=== PATIENT | female | born 1955 | race Caucasian/White ===

== ENCOUNTER 2019-05-02 11:36 | Outpatient (CLI) | payer MEDICARE, MEDICAID, SELFPAY ==
--- NOTE | 2019-05-02 12:33 | ECG_ITS ---
Measurements Intervals [place] Rate: 83 P: 76 [place]: 151 QRS: 65 QRSD: 66 T: 53 QT: 351 QTc: 414 Interpretive Statements SINUS RHYTHM BASELINE ARTIFACT- I, II, III, AVR, AVL, AVF, V1-V6 NORMAL ECG Electronically Signed On 05-02-2019 15:45:56 [employer]IPPER by Damion Vega D.O.
[2019-05-02 13:00] LABS: Basophils Absolute Auto 0.1 K/mm3 (0.0-0.1); Eosinophils Absolute Auto 0.1 K/mm3 (0-0.3); Eosinophils Percent Auto 1.9 % (0-4.4); Hematocrit 33.3 % (37.0-47.0); Hemoglobin 10.7 g/dL (12.0-15.0); Immature Granulocyte Absolute 0.03 K/mm3 (0.00-0.031); Immature Granulocyte Percent A 0.5 % (0-0.5); Lymphocytes Absolute Auto 1.09 K/mm3 (0.9-3.2); Lymphocytes Percent Auto 18.5 % (18.3-44.2); Mean Corpuscular HGB Conc 32.1 g/dl (32-36); Mean Corpuscular Hemoglobin 31.5 pg (26-34); Mean Corpuscular Volume 97.9 fl (80-100); Mean Platelet Volume 9.5 fl (7.4-10.4); Monocytes Absolute Auto 0.7 K/mm3 (0.1-0.6); Monocytes Percent Auto 12.1 % (2.6-8.5); Neutrophils Absolute Auto 3.9 K/mm3 (1.3-6.7); Platelet Count Result 367 k/mm3 (150-375); Red Cell Distribution Width 14.7 % (11.5-14.5); White Blood Count 5.9 K/mm3 (4.5-10.0)
[2019-05-02 13:10] LABS: Add Urine Microscopic? YES; Appearance Urine Clear (Clear); Bilirubin Urine Negative (Negative); Blood Urine Negative (Negative); Color Urine Amber (Yellow); Glucose Urine UA Negative (Negative); Ketones Urine Negative (Negative); Leukocyte Esterase Ur Negative LEU/UL (Negative); Mucus Urine Rare /lpf; Nitrate Urine Negative (Negative); Protein Urine Negative (Negative); Specific Grav Ur 1.013 (1.001-1.035); Squamous Epithelial Cell Urine Rare /hpf (Few); Urobilinogen Urine Negative mg/dL (<2.0); WBC Urine 0-3 /hpf
[2019-05-02 13:13] LABS: Urine Cotinine NEGATIVE
[2019-05-02 13:15] LABS: Albumin Level 4.1 g/dL (3.5-5.1); Blood Urea Nitrogen 12 mg/dL (7-17); Calcium 9.1 mg/dL (8.4-10.2); Carbon Dioxide 32 mmol/L (22-30); Chloride 98 mmol/L (98-107); Estimated Glomerular Filt Rate > 60; Glucose 88 mg/dL (65-105); Sodium 140 mmol/L (137-145)
[2019-05-02 13:44] LABS: INR 0.9; Prothrombin Time 11.6 Seconds (11.1-14.7)
[2019-05-02 13:46] LABS: Partial Thromboplastin Time 27.8 SECONDS (22.3-36.8)
== END 2019-05-02 11:37 | disposition home or self-care (01) ==
LOC: ANHSURGERY 11:40
PROVIDERS: PCP Internal Medicine; Visit Provider Orthopaedic Surgery
DX: M16.9 Osteoarthritis of hip, unspecified (principal)
CPT/HCPCS: 36415; 80048; 80307; 81001; 82040; 83036; 85025; 85610; 85730; 86850; 86900; 86901; 87081; 93005

== ENCOUNTER 2019-05-09 11:32 | Inpatient (IN) | payer MEDICARE, MEDICAID, SELFPAY ==
[2019-05-02 11:46] VITALS: BP 142/90; PULSE 102; RESP 20; TEMP 37.4; O2SAT 99; BMI 21.7
[2019-05-09] VITALS (15 sets, daily range): BP systolic 99–150; BP diastolic 46–90; PULSE 64–107; RESP 12–20; TEMP 36.5–37.3; O2SAT 96–100
--- NOTE | ~2019-05-09 | XR_ITS ---
EXAMINATION: XR hip RT 1V EXAM DATE: 05/09/2019 10:34 INDICATION: Right hip replacement. TECHNIQUE: Portable frontal projections right hip obtained immediately following arthroplasty. Proc edure performed by Bridger Noonan MD. FINDINGS: Patient is status post right hip arthroplasty. Mild protrusio of the acetabular component. There is small amount of subcutaneous gas, some soft tissue swelling. Correlate with procedure no te. IMPRESSION: Status post right hip arthroplasty. Reviewed, dictated and finalized at location B. N CONTRACT REPRESENTATIVE
[2019-05-09] MEDS: LACTATED RINGERS 1,000 ML 30 ML IV CONT ×2 (06:45→10:13)
[2019-05-09] MEDS: IBUPROFEN IV 800 MG/200 ML 800 MG/200 ML BAG 400 MG IVPB (07:00)
--- NOTE | 2019-05-09 07:09 | WPDANESEPPF ---
Anes - Initial Pre Proc Eval Procedure: Operation Date: 05/09/19 07:30 Proposed Procedures p Right Total Hip Arthroplasty - Bridger Noonan MD Date/Time: 05/09/19 07:09 Surgeon: Bridger Noonan MD Pre Op Diagnosis: Right Hip OA Patient Data Age: 63 Gender: F Height: 1.52 m Weight: 50.3 kg Last Vital Signs Temp 37.4 C 05/02/19 11:46 Pulse 102 H 05/02/19 11:46 Resp 20 05/02/19 11:46 BP 142/90 H 05/02/19 11:46 Pulse Ox 99 05/02/19 11:46 Allergies Allergy/AdvReac Type Severity Reaction Status Date / Time adalimumab Allergy Mild Itching Verified 05/02/19 11:51 codeine AdvReac Unknown Itching Verified 05/02/19 11:51 Home Medications Medication Instructions Recorded Confirmed Type escitalopram oxalate 20 mg tablet 20 mg PO DAILY #90 tablet 01/29/19 05/02/19 Rx ascorbic acid (vitamin C) 1,000 mg 1 gm PO DAILY 04/26/19 05/02/19 History tablet atorvastatin 10 mg tablet 10 mg PO DAILY 04/26/19 05/02/19 History calcium carbonate 500 mg calcium 500 mg PO DAILY 04/26/19 05/02/19 History (1,250 mg) capsule carbidopa 25 mg-levodopa 100 mg 1 tablet PO DAILY tablet 04/26/19 05/02/19 History tablet celecoxib 200 mg capsule 200 mg PO BID 04/26/19 05/02/19 History cholecalciferol (vitamin D3) 25 1,000 unit PO DAILY 04/26/19 05/02/19 History mcg (1,000 unit) capsule esomeprazole magnesium 40 mg 40 mg PO BID cap 04/26/19 05/02/19 History capsule,delayed release ferrous sulfate 325 mg (65 mg 325 mg PO DAILY 04/26/19 05/02/19 History iron) tablet folic acid 1 mg tablet 1 mg PO DAILY 04/26/19 05/02/19 History lactobacillus combination no.8 3 3,000 mmu cells PO DAILY 04/26/19 05/02/19 History billion cell capsule methotrexate sodium 2.5 mg tablet 2.5 mg PO .COMPLEX 04/26/19 05/02/19 History multivitamin 1 tablet PO DAILY 04/26/19 05/02/19 History sucralfate 1 gram tablet 1 g PO QID 04/26/19 05/02/19 History tramadol 50 mg tablet See Rx Instructions PO Q6H PRN 04/26/19 05/02/19 History azathioprine 50 mg PO DAILY 05/02/19 05/02/19 History cyanocobalamin (vitamin B-12) 1,000 mcg PO DAILY 05/02/19 05/02/19 History tofacitinib [Xeljanz XR] 11 mg PO DAILY 05/02/19 05/02/19 History alprazolam 0.5 mg tablet 0.5 mg PO BID PRN #60 tablet 05/08/19 Rx Patient hx anesthesia problems: none Family hx anesthesia problems: none [facility] Past Medical History Medical History (Updated 05/09/19 @ 07:13 by Kam Cloud MD) Degenerative joint disease (DJD) of hip Gastroesophageal reflux disease Hx of Crohn's disease Mixed hyperlipidemia Osteoporosis Psoriatic arthritis Rheumatoid arthritis RLS (restless legs syndrome) Social History Social History Smoking status: Never smoker Alcohol intake: never Anes - Eval Final PreProcedure Day of Procedure 05/09/19 07:09 Patient weight: normal Heart: regular rate and rhythm Lungs: clear to auscultation and normal air movement Airway: Mallampati scale class II Neurological: alert and oriented Last oral intake: >/= 8 hours ASA classification: III Emergent: no Anesthetic plan: proceed Anesthesia type and monitoring: general LMA and ETT Informed Consent: The patient's anesthetic plan and its attendant risks and benefits were discussed with the patient/family/POA. Questions were solicited and answers provided to the satisfaction of the patient/family/POA.
--- NOTE | 2019-05-09 07:35 | WPDHPUPDATE1 ---
History and Physical Update Update Date/Time: 05/09/19 07:35 History and Physical has been reviewed, including an updated exam of the patient. There are NO changes in the patient's condition. Risks, benefits, and alternatives have been discussed and questions answered. Patient agrees to proceed with procedure.
[2019-05-09] MEDS: ceFAZolin 2 GM/D5W 50 ML 2 GM/50 ML BAG IVPB ×3 (07:44→23:33)
--- NOTE | 2019-05-09 09:59 | PM.OP ---
Procedure Note - Brief Procedure Note - Brief Date of procedure: 05/09/19 Pre-op diagnosis: Right Hip OA Post-op diagnosis: same Procedure performed: R ERNA Anesthesia: GETA Surgeon: Bridger Noonan MD Estimated blood loss (mL): 400 Complications: No immediate complications Condition: stable Disposition: PACU
--- NOTE | 2019-05-09 11:11 | SUR.PHASEI ---
1111 - family updated on pt's status and sent to room
[2019-05-09] MEDS: SUCRALFATE 1 GM TABLET PO ×3 (12:15→21:33)
--- NOTE | 2019-05-09 12:41 | OP_ITS ---
DATE OF PROCEDURE: 05/09/2019 PREOPERATIVE DIAGNOSIS: Right hip degenerative joint disease. POSTOPERATIVE DIAGNOSIS: Right hip degenerative joint disease. PROCEDURE: Right total hip arthroplasty. ANESTHESIA: General. COMPLICATIONS: None. INDICATIONS: This is a 63-year-old female who has a history of end-stage DJD to the right hip. She was indicated for right total hip arthroplasty. DESCRIPTION OF PROCEDURE: The patient was taken to the operating room in stable condition and placed in supine position. General anesthesia was induced and then she was placed in lateral decubitus and the right lower extremity was prepped and draped sterilely from the toes to the iliac crest region. Incision was made over the lateral aspect of the hip down to the subcutaneous tissues and the fascia then was incised. The short external rotators, the piriformis tendon and the sciatic nerve were identified. The piriformis tendon then was incised along with the capsule of the hip joint and the short external rotators of the hip. This continued down until the lesser trochanter was visualized. The hip was dislocated and an osteotomy was performed approximately 1 cm proximal to the lesser trochanter. There was severe arthrosis to all compartments of the hip. The acetabulum was exposed and then the acetabulum was reamed starting with a 42 reamer and ending with a 47 reamer and approximately 35 degrees of abduction and version was in alignment with the trans-acetabular ligament. A 47 trial acetabular component was placed and it bottomed out well and had good purchase. Next, a 48 Biomet Osteo-Ti acetabular component then was tapped into place in approximately 40 degrees of abduction and the version was in alignment with the trans-acetabular ligament and then 2 screws were placed, they both had excellent bites. A liner was placed with the high wall, and then tapped in and was secured. Next, the femur was prepared first with a canal finder and then with sequential broaching in 15 degrees of anteversion until a #6 broach was fit well within the femoral canal. A trial standard offset neck with a +6 eventually was used to make up for some length that she was lacking on the right lower extremity and it felt good. There was a good Shuck test. The hip came out to full extension. There was good stability with rotation in 90 degrees. The trial components were removed, and then a [place] standard offset neck was tapped down into place in 15 degrees of anteversion. The fit was excellent. The trial +6 head/neck was used with a 32 head and the hip was taken through range of motion, once again found to be very stable. The Shuck test was good and the hip came out to full extension. Once that was performed, then trial was removed and then a 32 mm +6 neck with a ceramic head was tapped into place and the hip was relocated taken through range of motion. The leg lengths were improved from preoperative, but they were not equal. The sciatic nerve was supple and the tip came out to full extension and rotation was stable and adduction as well as abduction. The wound was irrigated thoroughly with sterile Betadine and sterile water for 3 minutes. The piriformis and the capsule of the hip and the short external rotators were all repaired. Next, the piriformis and the capsule and the short external rotators were repaired with #1 Vicryl. The fascial layer was approximated with #2 Quill subcutaneous with 2-0 Vicryl and the skin with a 3-0 Quill, and then Dermabond was placed and a sterile dressing was applied. The patient was placed back in the supine position. She was extubated and sent to recovery. Armando Lloyd MT: Bean
--- NOTE | 2019-05-09 13:00 | WPDCN ---
Assessment and Plan Assessment and plan (1) Degenerative joint disease (DJD) of hip: Qualifiers: Osteoarthritis type: other secondary Laterality: right Qualified Code(s): M16.7 - Other unilateral secondary osteoarthritis of hip Code(s): M16.9 - Osteoarthritis of hip, unspecified Status: Acute Assessment and Plan: Postoperative day 0, right total hip arthroplasty. Wound care and pain control deferred to Dr. Noonan. DVT prophylaxis also deferred. (2) RLS (restless legs syndrome): Code(s): G25.81 - Restless legs syndrome Status: Acute Assessment and Plan: Resume Sinemet at nighttime. (3) Gastroesophageal reflux disease: Code(s): K21.9 - Gastro-esophageal reflux disease without esophagitis Status: Acute Assessment and Plan: Continue esomeprazole and sucralfate. (4) Immunosuppressed status: Code(s): D89.9 - Disorder involving the immune mechanism, unspecified Status: Acute Assessment and Plan: Patient is on tofacitinib, azathioprine, and methotrexate for her autoimmune diseases. I will defer the decision to resume these to Dr. Noonan. HPI Data of Consult Date/Time: 05/09/19 13:00 Requesting Physician: Bridger Noonan MD Primary Care Provider: Ricky Ballesteros MD Consult Narrative Narrative: Ina Garcia is a pleasant 63-year-old female with osteoarthritis, rheumatoid arthritis, Crohn's, iron deficiency anemia, and restless leg syndrome who presented today for elective right total hip arthroplasty. She has had quite a bit of pain in that right hip for some time, not amenable to conservative outpatient treatment and thus she elected for replacement today. Her surgery was performed under general anesthesia with no immediate complications documented an estimated blood loss of 400 mLs. She has minimal pain at the time my evaluation and has no complaints except of being tired. She denies fever, chills, sweats, chest pain, shortness of breath, nausea, and vomiting. She also denies paresthesias, skin color, and temperature changes distal to the surgical site. Review of Systems Review of Systems: Narrative: Twelve systems were reviewed with pertinent positives and negatives as per HPI. No fever, chills, or sweats. No recent cold or flu-like symptoms. She denies exertional chest pain shortness of breath. No history of venous thromboembolism. Except as documented, all other systems were reviewed and are negative. [facility] Past Medical History Medical History (Updated 05/09/19 @ 14:53 by Gisela Zendejas PA-C) Crohn's disease Gastroesophageal reflux disease Glaucoma Immunosuppressed status Iron deficiency anemia Mixed hyperlipidemia Osteoarthritis Osteoporosis Psoriatic arthritis Rheumatoid arthritis RLS (restless legs syndrome) Surgical History Surgical History (Updated 05/09/19 @ 14:50 by Gisela Zendejas PA-C) History of section History of temporal artery biopsy In October 2016. No pathologic abnormalities noted. Status post ankle fusion With subsequent hardware removal and redo. Status post bilateral total hip replacement Status post cholecystectomy Status post rotator cuff repair Bilateral. Status post total right knee replacement Family History Family History Mother Family history of osteoporosis Cerebrovascular accident Family history of Alzheimer's disease Family history of coronary artery disease Acute myocardial infarction Family history of malignant melanoma Family history of malignant neoplasm of ovary Father Family history of coronary artery disease Family history of heart disease in male family member before age 55 Family history of lung cancer, Onset Age: 48 Sibling Family history of lung cancer Family history of malignant melanoma Family history of malignant neoplasm of urinary b
[2019-05-09] MEDS: DOCUSATE SODIUM 100 MG CAPSULE PO (16:37)
[2019-05-09] MEDS: PANTOPRAZOLE 40 MG TABLET PO (16:37)
[2019-05-09] MEDS: FAMOTIDINE 20 MG TABLET PO (21:33)
[2019-05-10 02:58] VITALS: BP 131/75; PULSE 111; RESP 16; TEMP 37.2; O2SAT 99
[2019-05-10 06:00] VITALS: BP 133/68; PULSE 98; RESP 16; TEMP 37.2; O2SAT 98
[2019-05-10 06:19] LABS: Basophils Percent Auto 0.3 % (0.2-1.2); Hematocrit 25.3 % (37.0-47.0); Hemoglobin 8.2 g/dL (12.0-15.0); Immature Granulocyte Absolute 0.06 K/mm3 (0.00-0.031); Immature Granulocyte Percent A 0.5 % (0-0.5); Lymphocytes Absolute Auto 0.55 K/mm3 (0.9-3.2); Lymphocytes Percent Auto 4.7 % (18.3-44.2); Mean Corpuscular HGB Conc 32.4 g/dl (32-36); Mean Corpuscular Hemoglobin 31.1 pg (26-34); Mean Corpuscular Volume 95.8 fl (80-100); Mean Platelet Volume 9.6 fl (7.4-10.4); Monocytes Absolute Auto 1.7 K/mm3 (0.1-0.6); Monocytes Percent Auto 14.5 % (2.6-8.5); Neutrophils Absolute Auto 9.3 K/mm3 (1.3-6.7); Platelet Count Result 321 k/mm3 (150-375); Red Blood Count 2.64 M/mm3 (4.2-5.4); Red Cell Distribution Width 14.6 % (11.5-14.5); White Blood Count 11.7 K/mm3 (4.5-10.0)
[2019-05-10 06:35] LABS: Blood Urea Nitrogen 10 mg/dL (7-17); Calcium 8.2 mg/dL (8.4-10.2); Carbon Dioxide 31 mmol/L (22-30); Chloride 96 mmol/L (98-107); Estimated CRCL calculation 71 ml/min; Estimated Glomerular Filt Rate > 60; Glucose 108 mg/dL (65-105); Potassium 3.3 mmol/L (3.4-5.0); Sodium 137 mmol/L (137-145)
[2019-05-10] MEDS: ceFAZolin 2 GM/D5W 50 ML 2 GM/50 ML BAG IVPB (08:01)
[2019-05-10] MEDS: ASPIRIN 325 MG ENTERIC TABLET 650 MG PO (08:08)
[2019-05-10] MEDS: SUCRALFATE 1 GM TABLET PO ×3 (08:09→17:06)
[2019-05-10] MEDS: AZATHIOPRINE 50 MG TABLET PO (08:09)
[2019-05-10] MEDS: DOCUSATE SODIUM 100 MG CAPSULE PO ×2 (08:09→17:07)
[2019-05-10] MEDS: ESCITALOPRAM OXALATE 10 MG TABLET 20 MG PO (08:10)
[2019-05-10] MEDS: FERROUS SULFATE 324 MG TABLET PO (08:10)
[2019-05-10] MEDS: CELECOXIB 200 MG CAPSULE PO (08:10)
[2019-05-10] MEDS: PANTOPRAZOLE 40 MG TABLET PO ×2 (08:11→17:06)
[2019-05-10] MEDS: ATORVASTATIN 10 MG TABLET PO (08:12)
[2019-05-10] MEDS: POTASSIUM CHLORIDE 20 MEQ TABLET 40 MEQ PO (08:44)
--- NOTE | 2019-05-10 12:17 | PM.IMPN ---
Progress Note: A&P Assessment and Plan (1) Degenerative joint disease (DJD) of hip: Qualifiers: Osteoarthritis type: other secondary Laterality: right Qualified Code(s): M16.7 - Other unilateral secondary osteoarthritis of hip Code(s): M16.9 - Osteoarthritis of hip, unspecified Status: Acute Assessment and Plan: Postoperative day 1, right total hip arthroplasty per Dr. Noonan. Doing well today; wishing she can go home today. Wound care, DVT ppx, PT/OT and pain control deferred to Dr. Noonan. (2) RLS (restless legs syndrome): Code(s): G25.81 - Restless legs syndrome Status: Acute Assessment and Plan: No acute issues Continue Sinemet at nighttime. (3) Gastroesophageal reflux disease: Code(s): K21.9 - Gastro-esophageal reflux disease without esophagitis Status: Acute Assessment and Plan: No acute issues Continue esomeprazole and sucralfate. (4) Immunosuppressed status: Code(s): D89.9 - Disorder involving the immune mechanism, unspecified Status: Acute Assessment and Plan: Patient is on tofacitinib, azathioprine, and methotrexate for her autoimmune diseases. Will defer the decision to resume these to Dr. Noonan. Additional Plan Patient is medically stable for discharge; will sign off. Please call with any additional questions/concerns. Thank you for allowing the Hospitalist team to care for this patient during their stay. Subjective Date/time seen: 05/10/19 12:17 This is a Hospitalist Consult Progress Note Interval history: Patient is a 63 yo F with history of osteoarthritis, rheumatoid arthritis, Crohn's, iron deficiency anemia, and restless leg syndrome who is here for elective right total hip arthroplasty per Dr. Noonan POD1; Hospitalist service has been consulted for medical management of comorbid conditions. Patient states she is doing really well today. Her pain is minimal today. She states she is doing really well with PT/OT and is hoping to be discharged today. Patient has no other complaints today. Denies f/c/ns, headaches, dizziness, lightheadedness, changes in v/h, cp/palpitations, sob/cough, n/v/d/c, abd pain, dysphagia, melena, brbpr, dysuria, hematuria, cloudy urine, calf pain/swelling, s/sx of stroke Review of Systems Review of Systems: All systems reviewed & are unremarkable except as noted in HPI and below Exam Narrative: Exam Narrative: Patient is sitting upright in chair at time of visit Const: General: cooperative, healthy appearing, comfortable, no acute distress, well developed and alert Nutritional Appearance: well nourished Orientation/consciousness: patient oriented x3 HENMT: Head: normocephalic and atraumatic Ears: external ears normal General nose exam: Normal nares present Face and sinus: face symmetric Mouth: Yes tongue normal and Yes moist mucous membranes abnormal Teeth and gingiva: fair dentition Throat: posterior oropharynx normal and uvula midline Eyes: General: appearance normal, both eyes and all related structures Sclera: sclerae normal Pupils: Equal, round and reactive pupils present EOM: EOMs intact bilaterally Neck: Neck: trachea midline and supple Resp: Effort & Inspection: normal respiratory effort Auscultation: clear to auscultation bilaterally Cardio: Rate: regular rate Rhythm: regular rhythm Heart sounds: no murmurs GI: Inspection: non-distended GI Palp: No abdominal tenderness and Yes Soft to palpation Auscultation: normal bowel sounds and Hypoactive bowel sounds present Skin: General skin exam: normal color and no rashes or lesions noted Neuro: General: patient oriented x3 and moves all extremities Speech: normal speech Sensory Exam: normal sensation Extrem: Right lower extremity: no edema Left lower extremity:
--- NOTE | 2019-05-10 13:27 | P.PNAN_ITS ---
Anes - Prog Note Post-Op Date/Time: 05/10/19 13:27 Cardiovascular status: normal Respiratory status: normal Airway patency: baseline Mental status: baseline Post-Op hydration status: normal Vital Signs: Last Vital Signs Temp 37.2 C 05/10/19 06:00 Pulse 98 05/10/19 06:00 Resp 16 05/10/19 06:00 BP 133/68 05/10/19 06:00 Pulse Ox 98 05/10/19 06:00 Pain Score (VAS): 0/10. Patient resting in bed at time of assessment, appears comfortable. PCT at bedside. I/O: Intake & Output 05/09/19 05/10/19 05/10/19 23:59 07:59 15:59 Intake Total 590 250 290 Output Total 900 1200 Balance -310 -950 290 Laboratory Tests 05/10/19 06:03 05/10/19 06:03 05/10/19 05/10/19 06:03 06:03 WBC 11.7 H RBC 2.64 L Hgb 8.2 L Hct 25.3 L MCV 95.8 MCH 31.1 MCHC 32.4 RDW 14.6 H Plt Count 321 MPV 9.6 Immature Gran % (Auto) 0.5 Neut % (Auto) 80.0 H Lymph % (Auto) 4.7 L [place] % (Auto) 14.5 H Eos % (Auto) 0.0 Baso % (Auto) 0.3 Lymph # (Auto) 0.55 L [place] # (Auto) 1.7 H Eos # (Auto) 0.0 Baso # (Auto) 0.0 Abs Immat Gran (auto) 0.06 H Absolute Neuts (auto) 9.3 H Absolute Nucleated RBC 0.0 Nucleated RBC % 0.0 Sodium 137 Potassium 3.3 L Chloride 96 L Carbon Dioxide 31 H BUN 10 Creatinine 0.50 L Estim Creat Clear Calc 71 Estimated GFR > 60 Glucose 108 H Calcium 8.2 L Post-procedural complaints: none Patient Feedback: Patient satisfied with anesthetic care.
[2019-05-10 14:00] VITALS: BP 132/81; PULSE 103; RESP 16; TEMP 37.4; O2SAT 98
--- NOTE | 2019-05-10 16:52 | PM.PNORT ---
Progress Note: A&P Additional Plan POD 1 DOING WELL. OK TO DC HOME F/U IN 3 WEEKS Time Spent With Patient Time with patient: 15 - 25 minutes Subjective Subjective Date/Time Seen: 05/10/19 16:52 POD 1 DOING WELL. GOOD PROGRESS WITH PT. 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[place] INTACT [employer] SIGN Objective Data Vital Signs Vital Signs: Vital Signs - 24 hr 05/09/19 17:56 05/09/19 20:49 05/09/19 22:00 Temperature 37.3 C 37.3 C Pulse Rate 99 104 H 103 H Respiratory Rate 18 16 16 Blood Pressure 147/88 H 122/73 Pulse Oximetry 100 96 99 05/10/19 02:58 05/10/19 06:00 05/10/19 14:00 Temperature 37.2 C 37.2 C 37.4 C Pulse Rate 111 H 98 103 H Respiratory Rate 16 16 16 Blood Pressure 131/75 133/68 132/81 Pulse Oximetry 99 98 98 Intake/Output Intake/Output: Intake & Output 05/07/19 05/08/19 05/09/19 05/10/19 23:59 23:59 23:59 23:59 Intake Total 1180 780 Output Total 900 1200 Balance 280 -420 Meds/Results Medications: Active Medications Generic Name Dose Route Start Last Admin Trade Name Freq PRN Reason Stop Dose Admin Acetaminophen 650 mg 05/09/19 11:26 Tylenol Tablet PO Q6H PRN Mild Pain (1-3) or Fever Hydrocodone Bitart/Acetaminophen 1 tab 05/09/19 11:26 05/10/19 14:19 [place] 7.5-325 Mg PO 1 tab Q3H PRN Administration Pain Rated 4-6 Alprazolam 0.5 mg 05/09/19 11:26 Xanax PO BID PRN anxiety Aspirin 650 mg 05/10/19 09:00 05/10/19 08:08 Aspirin Ec PO 650 mg DAILY RHYS Administration Atorvastatin Calcium 10 mg 05/10/19 09:00 05/10/19 08:12 Lipitor PO 10 mg DAILY RHYS Administration Azathioprine 50 mg 05/10/19 09:00 05/10/19 08:09 Imuran PO 50 mg DAILY RHYS Administration Carbidopa/Levodopa 1 tablet 05/10/19 21:00 Sinemet 25/100 Mg PO HS RHYS Celecoxib 200 mg 05/10/19 09:00 05/10/19 08:10 Celebrex PO 200 mg DAILY [facility] Administration Diazepam 5 mg 05/09/19 11:26 Valium Po PO Q6H PRN Anxiety/Muscle Spasm Docusate Sodium 100 mg 05/09/19 17:00 05/10/19 08:09 Colace Capsule PO 100 mg BID [facility] Administration Escitalopram Oxalate 20 mg 05/10/19 09:00 05/10/19 08:10 Lexapro PO 20 mg DAILY [facility] Administration Famotidine 20 mg 05/09/19 21:00 05/10/19 08:11 Pepcid PO Not Given Q12HR [facility] Ferrous Sulfate 324 mg 05/10/19 09:00 05/10/19 08:10 Ferrous Sulfate PO 324 mg DAILY [facility] Administration Magnesium Hydroxide 30 ml 05/09/19 11:26 Milk Of Magnesia PO BID PRN Constipation Morphine Sulfate 3 mg 05/09/19 11:26 Morphine Sulfate Inj IV PUSH Q3H PRN Pain Rated 7-10 Non-Formulary Medication 11 mg 05/10/19 09:00 Tofacitinib [Xeljanz Xr] PO 06/09/19 09:01 DAILY [facility] Pantoprazole Sodium 40 mg 05/09/19 17:00 05/10/19 08:11 Protonix PO 40 mg BID [facility] Administration Sucralfate 1 gm 05/09/19 13:00 05/10/19 12:32 Carafate PO 1 gm QID RHYS Administration Radiology Results: ITS Impressions Hip X-Ray 05/09/19 10:44 IMPRESSION: Status post right hip arthroplasty. Labs Labs: Laboratory Results - last 24 hr 05/10/19 05/10/19 06:03 06:03 WBC 11.7 H RBC 2.64 L Hgb 8.2 L Hct 25.3 L MCV 95.8 MCH 31.1 MCHC 32.4 RDW 14.6 H Plt Count 321 MPV 9.6 Immature Gran % (Auto) 0.5 Neut % (Auto) 80.0 H Lymph % (Auto) 4.7 L [place] % (Auto) 14.5 H Eos % (Auto) 0.0 Baso % (Auto) 0.3 Lymph # (Auto) 0.55 L [place] # (Auto) 1.7 H Eos # (Auto) 0.0 Baso # (Auto) 0.0 Abs Immat Gran (auto) 0.06 H Absolute Neuts (auto) 9.3 H Absolute Nucleated RBC 0.0 Nucleated RBC % 0.0 Sodium 137 Potassium 3.3 L Chloride 96 L Carbon Dioxide 31 H BUN 10 Creatinine 0.50 L Estim Creat Clear Calc 71 Estimated GFR > 60 Glucose 108 H Calcium 8.2 L Quality VTE Prophylaxis VTE prophylaxis: pharma
--- NOTE | 2019-05-10 17:03 | PM.DS ---
DS: Diagnosis Admitting Diagnosis Admitting Diagnosis: Unilateral primary osteoarthritis, right hip DS: Summary Time Spent with Patient Time attestation: Total time spent providing and/or coordinating discharge services: DS: Data Data Completed and Pending Labs on day of discharge: Labs from last 24 hours 05/10/19 05/10/19 06:03 06:03 WBC 11.7 H RBC 2.64 L Hgb 8.2 L Hct 25.3 L MCV 95.8 MCH 31.1 MCHC 32.4 RDW 14.6 H Plt Count 321 MPV 9.6 Immature Gran % (Auto) 0.5 Neut % (Auto) 80.0 H Lymph % (Auto) 4.7 L Pierce % (Auto) 14.5 H Eos % (Auto) 0.0 Baso % (Auto) 0.3 Lymph # (Auto) 0.55 L Pierce # (Auto) 1.7 H Eos # (Auto) 0.0 Baso # (Auto) 0.0 Abs Immat Gran (auto) 0.06 H Absolute Neuts (auto) 9.3 H Absolute Nucleated RBC 0.0 Nucleated RBC % 0.0 Sodium 137 Potassium 3.3 L Chloride 96 L Carbon Dioxide 31 H BUN 10 Creatinine 0.50 L Estim Creat Clear Calc 71 Estimated GFR > 60 Glucose 108 H Calcium 8.2 L Discharge Plan Discharge Attending physician on discharge: Bridger Noonan Consulting providers: Larry Dodd Discharging Clinician: Bridger Noonan Anticipated Discharge Date/Time: 05/10/19 16:54 Patient Disposition: Home Health Service Activity: may shower, no driving and follow weight bearing status Diet: as tolerated and regular Wound Care Instructions: keep dressing dry Discharge Instructions: Per Care Coordination Patient is arranged to have [facility] for detention to monitor healing or monitor for any infection in wound, physical therapy, occupational therapy [phone] Patient Instructions: Antibiotic Form Stand Alone Forms: General Discharge Information Follow-up/Referrals: Bridger Noonan MD [Physician] - 3 Weeks Discharge Medications: New hydrocodone-acetaminophen [Maryneal] 5-325 mg tablet 1 tablet PO Q6H PRN (Reason: pain) Qty: 60 RF: 0 hydrocodone-acetaminophen [Maryneal] 5-325 mg tablet 1 tablet PO Q6H PRN (Reason: pain) Qty: 60 RF: 0 aspirin 325 mg Tablet,Delayed Release (Dr/Ec) 650 mg PO DAILY 14 Days Qty: 28 RF: 0 Continued methotrexate sodium 2.5 mg tablet 2.5 mg PO .COMPLEX RF: 0 folic acid 1 mg tablet 1 mg PO DAILY RF: 0 celecoxib 200 mg capsule 200 mg PO BID RF: 0 multivitamin Tablet 1 tablet PO DAILY RF: 0 Adult Probiotic 3 billion cell capsule 3,000 mmu cells PO DAILY RF: 0 ferrous sulfate [Feosol] 325 mg (65 mg iron) tablet 325 mg PO DAILY RF: 0 ascorbic acid (vitamin C) 1,000 mg tablet 1 gm PO DAILY RF: 0 Calci-Mix 500 mg calcium (1,250 mg) capsule 500 mg PO DAILY RF: 0 cholecalciferol (vitamin D3) 25 mcg (1,000 unit) capsule 1,000 unit PO DAILY RF: 0 sucralfate [Carafate] 1 gram tablet 1 g PO QID RF: 0 esomeprazole magnesium [Nexium] 40 mg capsule,delayed release(DR/EC) 40 mg PO BID RF: 0 tramadol 50 mg tablet See Rx Instructions PO Q6H PRN (Reason: Pain) RF: 0 atorvastatin 10 mg tablet 10 mg PO DAILY RF: 0 carbidopa-levodopa 25-100 mg tablet 1 tablet PO DAILY RF: 0 cyanocobalamin (vitamin B-12) 1,000 mcg Tablet 1,000 mcg PO DAILY RF: 0 azathioprine 50 mg Tablet 50 mg PO DAILY RF: 0 Xeljanz XR 11 mg Tablet Extended Release 24 Hr 11 mg PO DAILY RF: 0 escitalopram oxalate 20 mg tablet 20 mg PO DAILY Qty: 90 RF: 1 alprazolam 0.5 mg tablet 0.5 mg PO BID PRN (Reason: anxiety) Qty: 60 RF: 0 Date of admission: 05/09/19 11:32 Primary Care Provider: Ricky Ballesteros Admitting Provider: Bridger Noonan Attending physician on admission: Bridger Noonan Quality VTE Prophylaxis VTE prophylaxis: pharmacologic ordered
== END 2019-05-10 17:45 | disposition home health service (06) | DRG 470 ==
LOC: ANH3MEDSUR 11:33
PROVIDERS: Admitting Provider Orthopaedic Surgery; PCP Internal Medicine; Visit Provider Orthopaedic Surgery
PROC: 0SR904A Replacement of Right Hip Joint with Ceramic on Polyethylene Synthetic Substitute, Uncemented, Open Approach (ICD-10-PCS; CPT 27130; principal; 2019-05-09 07:30)
DX: M16.11 Unilateral primary osteoarthritis, right hip (principal); K21.9 Gastro-esophageal reflux disease without esophagitis; E78.2 Mixed hyperlipidemia; M81.0 Age-related osteoporosis without current pathological fracture; L40.50 Arthropathic psoriasis, unspecified; M06.9 Rheumatoid arthritis, unspecified; G25.81 Restless legs syndrome; Z90.49 Acquired absence of other specified parts of digestive tract
CPT/HCPCS: 36415; 73501; 80048; 85025; 97110; 97116; 97161; 97165; 97530; A9270; C1776; J0171; J0690; J1100; J1741; J2250; J2270; J2405; J2704; J2710; J2795; J3010; J7120

== ENCOUNTER 2019-10-18 11:40 | Outpatient (CLI) | payer MEDICARE, MEDICAID, SELFPAY ==
[2019-10-18 12:08] LABS: Basophils Absolute Auto 0.1 K/mm3 (0.0-0.1); Basophils Percent Auto 0.8 % (0.2-1.2); Eosinophils Absolute Auto 0.1 K/mm3 (0-0.3); Eosinophils Percent Auto 2.2 % (0-4.4); Hematocrit 33.3 % (37.0-47.0); Hemoglobin 10.6 g/dL (12.0-15.0); Immature Granulocyte Absolute 0.04 K/mm3 (0.00-0.031); Immature Granulocyte Percent A 0.6 % (0-0.5); Lymphocytes Absolute Auto 1.27 K/mm3 (0.9-3.2); Lymphocytes Percent Auto 19.9 % (18.3-44.2); Mean Corpuscular HGB Conc 31.8 g/dl (32-36); Mean Corpuscular Hemoglobin 30.9 pg (26-34); Mean Corpuscular Volume 97.1 fl (80-100); Mean Platelet Volume 9.3 fl (7.4-10.4); Monocytes Absolute Auto 0.8 K/mm3 (0.1-0.6); Neutrophils Percent Auto 63.5 % (45.5-73.1); Platelet Count Result 408 k/mm3 (150-375); Red Blood Count 3.43 M/mm3 (4.2-5.4); Red Cell Distribution Width 15.4 % (11.5-14.5); White Blood Count 6.4 K/mm3 (4.5-10.0)
[2019-10-18 12:20] LABS: Alanine Aminotransferase 29 U/L (4-35); Albumin Level 4.2 g/dL (3.5-5.1); Alkaline Phosphatase 136 U/L (38-126); Anion Gap 11.1 mmol/L (7-16); Aspartate Amino Transferase 44 U/L (14-36); Bilirubin,Total 0.4 mg/dL (0.2-1.3); Blood Urea Nitrogen 16 mg/dL (7-17); Calcium 8.9 mg/dL (8.4-10.2); Carbon Dioxide 29 mmol/L (22-30); Chloride 100 mmol/L (98-107); Cholesterol 195 mg/dL (0-200); Estimated Glomerular Filt Rate > 60; Glucose 97 mg/dL (65-105); HDL Direct 61 mg/dL; Potassium 4.1 mmol/L (3.4-5.0); Sodium 136 mmol/L (137-145); Triglycerides 118 mg/dL (<150)
[2019-10-18 12:31] LABS: LDL Cholesterol Direct 86 mg/dL
[2019-10-18 12:47] LABS: Iron 128 ug/dL (37-170)
[2019-10-18 12:57] LABS: Percent Iron Saturation 38 % (20-50)
[2019-10-18 13:32] LABS: Folic Acid > 20.0 ng/mL (2.76->20); Vitamin B12 > 1000.0 pg/mL (239-931)
== END 2019-10-18 11:41 | disposition home or self-care (01) ==
LOC: ANHLAB 11:43
PROVIDERS: PCP Internal Medicine; Visit Provider Internal Medicine
DX: K21.9 Gastro-esophageal reflux disease without esophagitis (principal); D64.9 Anemia, unspecified; G25.81 Restless legs syndrome; E78.2 Mixed hyperlipidemia; E78.5 Hyperlipidemia, unspecified; L40.50 Arthropathic psoriasis, unspecified
CPT/HCPCS: 36415; 80053; 80061; 82607; 82728; 82746; 83540; 83550; 84443; 85025

== ENCOUNTER 2019-10-25 09:33 | Outpatient (CLI) | payer MEDICARE, MEDICAID, SELFPAY ==
--- NOTE | ~2019-10-25 | DEXA_ITS ---
Bone Density Report Name: Ina Garcia Age: 63 Sex: Female Ethnicity: White Date of : 1955 Indication: postmenopausal; height loss; inflammatory bowel disease; rheumatoid arthritis; Referring Provider: BALDOMERO HOWARD Study: Bone densitometry was performed. Exam Date: October 25, 2019 Accession number: [id number] Bone Density: Region BMD T-score Z-score Classification AP Spine (L1, L2) 1.204 2.0 3.5 Normal World Health Organization criteria for BMD impression classify patients as: Normal (T-score at or above -1.0), Osteopenia (T-score between -1.0 and -2.5), or Osteoporosis (T-score at or below -2.5). Previous Exams: Region Exam Age BMD T-score BMD Change BMD Change Date g/cm2 vs Baseline vs Previous AP Spine(L1, L2) 10/25/2019 63 1.204 2.0 0.041(3.5%)# -0.110(-8.4%)* 06/03/2015 59 1.314 3.0 0.152(13.0%)# 0.107(8.9%)# 05/31/2013 57 1.207 2.1 0.044(3.8%)# 0.044(3.8%)# 12/18/2010 55 1.162 1.7 *Denotes significance at 95% confidence level, LSC for AP Spine = 0.022 g/cm2 Clinical Information Provided by Patient: Has rheumatoid arthritis Has used the following medications: HRT (i.e. estrogen/hormone therapy), Reclast (i.e. zoledronate), Vitamin D, Calcium Has the following medical conditions: Inflammatory bowel diseases Patient maximum height was 62 Menopause Age: 53 Drinks caffeinated beverages Onset of menses at age 15 Number of children 1 Impression: The patient has normal bone mass. The BMD for the AP Spine(L1, L2) decreased, changing by -8.4% since the last DXA exam. Discussion: LOW RISK OF FRACTURE; BONE DENSITY IS WELL ABOVE THE MINIMUM DESIRABLE LEVEL AND ABOVE AVERAGE FOR AGE AND SEX AT ALL SKELETAL SITES TESTED. This person's bone density is above expected limits for age and sex. This is rarely clinically significant, but should be pursued if there are significant musculoskeletal complaints. The patient should follow a healthful lifestyle (good nutrition with adequate calcium and vitamin D, and appropriate weight-bearing exercise). Follow-Up: Consider repeating this study in 3 to 4 years to reassess this patient's status, or sooner if there is some new clinical indication. Reported by: AYESHA on 10/25/2019 10:04:00 AM. Reviewed, dictated and finalized at location Al NARVAEZ
== END 2019-10-25 09:34 | disposition home or self-care (01) ==
LOC: ANHIMG 09:35
PROVIDERS: PCP Internal Medicine; Visit Provider Internal Medicine
DX: M81.0 Age-related osteoporosis without current pathological fracture (principal)
CPT/HCPCS: 77080

== ENCOUNTER 2020-05-18 12:37 | Emergency (ER) | payer MEDICARE, MEDICAID, SELFPAY ==
--- NOTE | ~2020-05-18 | XR_ITS ---
EXAMINATION: XR abdomen/kub 1V EXAM DATE: 05/18/2020 13:57 INDICATION: Right-sided abdominal pain. TECHNIQUE: Frontal projection(s) of the abdomen for interpretation. There is no prior study for eryn perla. FINDINGS: There is expected amount of colonic stool and gas. No small bowel dilation, nonobstructiv e bowel gas pattern. Calcifications in the pelvis are believed to be phleboliths. There are cholecys tectomy clips. There is no organomegaly suspected. There are bilateral hip replacements. There is moderate to severe lumbar spondylosis and mild to moderate dextroscoliosis. Lung bases are unremark able. IMPRESSION: Nonobstructive bowel gas pattern. Reviewed, dictated and finalized at location A. RTER OR EXPORTER
[2020-05-18 12:56] VITALS: BP 160/93; PULSE 99; RESP 16; TEMP 36.8; O2SAT 98
--- NOTE | 2020-05-18 12:57 | ED.ABDPAIN ---
HPI - Abdominal Pain General Chief Complaint: Urogenital-Female Stated Complaint: Possible UTI Time Seen by Provider: 05/18/20 12:58 Source: patient and RN notes reviewed History of Present Illness HPI narrative: Patient is a 64-year-old female who presents the urgent care with complaints of right low back pain that radiates to the right lower quadrant. Patient states that she had a normal bowel movement today and has been eating and drinking normally without any nausea, vomiting or diarrhea. Patient denies of any fevers. States that she has had no issues with urination such as burning or pain. States that she has noticed an odor to the urine. Denies any vaginal discharge. Denies of any history of kidney stones. States that she has been using ice, heat and tramadol without significant release of pain. Denies of any known trauma, fall or injury. No other acute complaints. No acute distress noted. Patient aware of the plan of care. Some parts of this dictation were generated by voice recognition software and may contain typographical and/or grammatical inaccuracies. Related Data Home Medications Medication Instructions Recorded Confirmed ascorbic acid (vitamin C) 1,000 mg 1 gm PO DAILY 04/26/19 05/18/20 tablet calcium carbonate 500 mg calcium 500 mg PO DAILY 04/26/19 05/18/20 (1,250 mg) capsule celecoxib 200 mg capsule 200 mg PO BID 04/26/19 05/18/20 cholecalciferol (vitamin D3) 25 1,000 unit PO DAILY 04/26/19 05/18/20 mcg (1,000 unit) capsule esomeprazole magnesium 40 mg 40 mg PO BID cap 04/26/19 05/18/20 capsule,delayed release ferrous sulfate 325 mg (65 mg 325 mg PO DAILY 04/26/19 05/18/20 iron) tablet folic acid 1 mg tablet 1 mg PO DAILY 04/26/19 05/18/20 lactobacillus combination no.8 3 3,000 mmu cells PO DAILY 04/26/19 05/18/20 billion cell capsule multivitamin 1 tablet PO DAILY 04/26/19 05/18/20 sucralfate 1 gram tablet 1 g PO QID 04/26/19 05/18/20 tramadol 50 mg tablet See Rx Instructions PO Q6H PRN 04/26/19 05/18/20 Xeljanz XR 11 mg PO DAILY 05/02/19 05/18/20 azathioprine 50 mg PO DAILY 05/02/19 05/18/20 cyanocobalamin (vitamin B-12) 1,000 mcg PO DAILY 05/02/19 05/18/20 methotrexate sodium 2.5 mg tablet 2.5 mg PO .COMPLEX 10/18/19 05/18/20 magnesium 250 mg tablet 250 mg PO DAILY 03/04/20 05/18/20 melatonin 10 mg capsule 10 mg PO DAILY 03/04/20 05/18/20 zinc 50 mg tablet 50 mg PO DAILY 03/04/20 05/18/20 hydroxychloroquine 05/18/20 Allergies Allergy/AdvReac Type Severity Reaction Status Date / Time adalimumab Allergy Mild Itching Verified 02/25/20 09:01 codeine AdvReac Mild Itching Verified 03/04/20 09:41 Review of Systems Review of Systems: Narrative: CONSTITUTIONAL: Denies fever, chills, or sweats. EYES: Denies visual changes, redness, or discharge. ENT: Denies rhinorrhea, congestion, sore throat, or otalgia. CARDIOVASCULAR: Denies chest pain, palpitations, or edema. RESPIRATORY: Denies cough or dyspnea. GASTROINTESTINAL: Reports of right lower abdominal pain radiating from the flank GENITOURINARY: Denies dysuria or hematuria. SKIN: Denies rash or itching. MUSCULOSKELETAL: Reports of right flank pain NEUROLOGIC: Denies headache, numbness, or weakness. All other systems reviewed are negative, except as documented in HPI. FOR[facility]LY [facility] Past Medical History Medical History (Updated 05/18/20 @ 14:21 by TANNER Chappell) Crohn's disease Gastroesophageal reflux disease Glaucoma Immunosuppressed status Iron deficiency anemia Mixed hyperlipidemia Osteoarthritis Osteoporosis Psoriatic arthritis Rheumatoid arthritis RLS (restless legs syndrome) Surgical History Surgical History History of section History of temporal artery biopsy In October 2016. No pathologic abnormalities noted. Status post ankle fusion With subsequent hardware removal and redo. Status post bilateral total hip replacement Status post cholecystectomy
== END 2020-05-18 14:23 | disposition home or self-care (01) ==
PROVIDERS: Emergency Provider Nurse Practitioner Family; PCP Internal Medicine
DX: R10.9 Unspecified abdominal pain (principal); K50.90 Crohn's disease, unspecified, without complications; K21.9 Gastro-esophageal reflux disease without esophagitis; H40.9 Unspecified glaucoma; E78.2 Mixed hyperlipidemia; M19.90 Unspecified osteoarthritis, unspecified site; M06.9 Rheumatoid arthritis, unspecified; G25.81 Restless legs syndrome; D50.9 Iron deficiency anemia, unspecified
CPT/HCPCS: 74018; 81003; 99213; G0463

== ENCOUNTER 2020-05-21 08:07 | Outpatient (CLI) | payer MEDICARE, MEDICAID, SELFPAY ==
--- NOTE | ~2020-05-21 | CT_ITS ---
EXAMINATION: CT abdomen pelvis wo con DATE: 05/21/2020 08:38 INDICATION: Calculus of the kidney TECHNIQUE: Computed tomography (CT) of the abdomen and pelvis was performed without intravenous contr ast. The dose-length product (DLP) was 157.79 mGy-cm. Automated exposure control and iterative recons truction technique were employed. COMPARISON: None FINDINGS: Minimal dependent atelectasis is present in the lung bases. The heart size is normal. The g allbladder is surgically absent. The liver, spleen, pancreas, and adrenal glands are normal. The kidn eys are unremarkable. No stones are identified in the kidneys, ureters, or bladder. There is no hydro nephrosis or hydroureter. Visualization of the bladder and distal ureters is obscured by streak artif act from hip arthroplasties. No pathologically enlarged abdominal or pelvic lymph nodes are identifie d. There is no free intraperitoneal gas or evidence of bowel obstruction. There is severe lumbar spon dylosis. IMPRESSION: 1. No CT correlate for the patient's symptoms, sensitivity for bladder and distal ureteral stones cartwright ited by streak artifact from hip arthroplasties. Reviewed, dictated and finalized at location A. RAFTER IMPRESSION: 1. No CT correlate for the patient's symptoms, sensitivity for bladder and dist al ureteral stones limited by streak artifact from hip arthroplasties.
== END 2020-05-21 08:08 | disposition home or self-care (01) ==
PROVIDERS: PCP Internal Medicine; Visit Provider Internal Medicine
DX: N20.0 Calculus of kidney (principal)
CPT/HCPCS: 74176

== ENCOUNTER 2020-12-14 12:02 | Emergency (ER) | payer MEDICARE, MEDICAID, SELFPAY ==
[2020-12-14 12:11] VITALS: BP 134/79; PULSE 103; RESP 18; TEMP 36.3; O2SAT 99
--- NOTE | 2020-12-14 12:45 | ED.FEMALEGU ---
HPI - Female Genitourinary General Chief complaint: Urogenital-Female Stated complaint: UTI Time Seen by Provider: 12/14/20 12:45 Source: patient, RN notes reviewed and old records reviewed Mode of arrival: ambulatory Limitations: no limitations History of Present Illness HPI Narrative: 65-year-old female who presents to [facility] with complaints of burning with urination, frequency and urgency with urine having strong odor since yesterday. Patient states that she has had UTI's in the past but has been for a few years. Patient denies any nausea or vomiting or diarrhea, no known fevers, chills or sweats. Patient denies any vaginal discharge or itching or any concern for STD exposure.Patient has not taken any OTC AZO for her symptoms. MD elicited complaint: UTI Related Data Home Medications Medication Instructions Recorded Confirmed ascorbic acid (vitamin C) 1,000 mg 1 gm PO DAILY 04/26/19 12/14/20 tablet calcium carbonate 500 mg calcium 500 mg PO DAILY 04/26/19 12/14/20 (1,250 mg) capsule celecoxib 200 mg capsule 200 mg PO BID 04/26/19 12/14/20 cholecalciferol (vitamin D3) 25 1,000 unit PO DAILY 04/26/19 12/14/20 mcg (1,000 unit) capsule esomeprazole magnesium 40 mg 40 mg PO BID cap 04/26/19 12/14/20 capsule,delayed release ferrous sulfate 325 mg (65 mg 325 mg PO DAILY 04/26/19 12/14/20 iron) tablet folic acid 1 mg tablet 1 mg PO DAILY 04/26/19 12/14/20 lactobacillus combination no.8 3 3,000 mmu cells PO DAILY 04/26/19 12/14/20 billion cell capsule multivitamin 1 tablet PO DAILY 04/26/19 12/14/20 sucralfate 1 gram tablet 1 g PO QID 04/26/19 12/14/20 tramadol 50 mg tablet See Rx Instructions PO Q6H PRN 04/26/19 12/14/20 Xeljanz XR 11 mg PO DAILY 05/02/19 12/14/20 azathioprine 50 mg PO DAILY 05/02/19 12/14/20 cyanocobalamin (vitamin B-12) 1,000 mcg PO DAILY 05/02/19 12/14/20 methotrexate sodium 2.5 mg tablet 2.5 mg PO .COMPLEX 08/06/20 10/03/21 magnesium 250 mg tablet 250 mg PO DAILY 03/04/20 12/14/20 melatonin 10 mg capsule 10 mg PO DAILY 03/04/20 12/14/20 zinc 50 mg tablet 50 mg PO DAILY 03/04/20 12/14/20 Allergies Allergy/AdvReac Type Severity Reaction Status Date / Time adalimumab Allergy Mild Itching Verified 12/14/20 12:42 codeine AdvReac Mild Itching Verified 12/14/20 12:42 Review of Systems Review of Systems: CONSTITUTIONAL: Denies fever, chills, or sweats. EYES: Denies visual changes, redness, or discharge. ENT: Denies rhinorrhea, congestion, sore throat, or otalgia. CARDIOVASCULAR: Denies chest pain, palpitations, or edema. RESPIRATORY: Denies cough or dyspnea. GASTROINTESTINAL: Denies abdominal pain, nausea, vomiting, or diarrhea. GENITOURINARY: Positive for dysuria or hematuria. SKIN: Denies rash or itching. MUSCULOSKELETAL: Denies back pain, joint pain, or myalgia. NEUROLOGIC: Denies headache, numbness, or weakness. PSYCHIATRIC:Positive for history of anxiety or depression. All systems reviewed & are unremarkable except as noted in HPI and below PMFSH Past Medical History Medical History (Updated 12/15/20 @ 22:19 by Noemi Ponce NP) Crohn's disease Gastroesophageal reflux disease Glaucoma Immunosuppressed status Iron deficiency anemia Mixed hyperlipidemia Osteoarthritis Osteoporosis Psoriatic arthritis Rheumatoid arthritis RLS (restless legs syndrome) Surgical History Surgical History History of section History of temporal artery biopsy In October 2016. No pathologic abnormalities noted. Status post ankle fusion With subsequent hardware removal and redo. Status post bilateral total hip replacement Status post cholecystectomy Status post rotator cuff repair Bilateral. Status post total right knee replacement Family History Family History Mother Family history of osteoporosis Cerebrovascular accident Family history of Alzheimer's disease Family h
== END 2020-12-14 13:15 | disposition home or self-care (01) ==
PROVIDERS: Emergency Provider Registered Nurse; PCP Internal Medicine
DX: N39.0 Urinary tract infection, site not specified (principal); K50.90 Crohn's disease, unspecified, without complications; K21.9 Gastro-esophageal reflux disease without esophagitis; H40.9 Unspecified glaucoma; D50.9 Iron deficiency anemia, unspecified; E78.5 Hyperlipidemia, unspecified; M19.90 Unspecified osteoarthritis, unspecified site; M81.0 Age-related osteoporosis without current pathological fracture; L40.50 Arthropathic psoriasis, unspecified; M06.9 Rheumatoid arthritis, unspecified; G25.81 Restless legs syndrome; Z96.643 Presence of artificial hip joint, bilateral; Z96.651 Presence of right artificial knee joint
CPT/HCPCS: 81003; 87077; 87086; 87186; 99213; G0463

== ENCOUNTER 2021-05-01 16:35 | Outpatient (CLI) | payer MEDICARE, MEDICAID, SELFPAY ==
--- NOTE | ~2021-05-01 | MR_ITS ---
EXAMINATION: MR shoulder LT wo con DATE: 05/01/2021 17:35 INDICATION: Left shoulder pain and limited range of motion 2 weeks post injury TECHNIQUE: Magnetic resonance imaging (MRI) of the left shoulder was performed without intravenous co ntrast. Sequences included axial PD-weighted FS FSE, coronal oblique PD-weighted FS FSE, coronal obli que T2-weighted FS FSE, sagittal PD-weighted FS FSE, and sagittal T1-weighted SE. COMPARISON: 08/20/2018 FINDINGS: Coracoacromial arch: Postoperative change of prior acromioplasty and distal clavicle resection. Rotator cuff: Postoperative change of interval revision left rotator cuff repair with multiple new suture anchors a t the greater tuberosity. There is recurrent large tear involving the majority of the supraspinatus a nd entire infraspinatus tendon with anterior most portion of the supraspinatus tendon remaining intac t at the site of suture anchors at the anterior aspect of the superior facet. Medial tear margin is r etracted 5 cm medially to just medial to the rim of the glenoid. Moderate subscapularis tendinopathy without discrete tear. The teres minor tendon appears to remain intact. Fatty atrophy of the rotator cuff musculature, severe at the infraspinatus, moderate severity at the supraspinatus and teres minor and mild at the cephalad subscapularis. Biceps tendon, glenoid labrum and glenohumeral cartilage: Postoperative change of interval biceps tenodesis which is anchored at the cephalad aspect of the int ertubercular groove. Impression degenerative tearing of the superior to posterior superior glenoid la carlos. Interval progression of chondromalacia at the superior to posterior superior glenoid with parti al thickness ulceration, deep fissuring and prominent underlying cystic change. Partial-thickness cho ndral ulceration and deep fissuring at the cephalad aspect of the humeral head. Cartilage thickness a ppears relatively preserved but with chondral surface irregularity along the remainder of the humeral head with underlying cortical irregularity consistent with small central subchondral osteophytes. Ad ditional small to moderate-sized marginal osteophytes along the humeral head. Fluid: Small glenohumeral joint effusion extending into the subacromial/subdeltoid bursa through the full-th ickness rotator cuff tear. No loose osteochondral bodies. Bones: Cephalad subluxation of the humeral head relative to the glenoid. There is narrowing of the subacromi al space with the cartilage at the apex of the humeral head articulating with the undersurface of the acromion. IMPRESSION: 1. Recurrent full-thickness tear of the entire infraspinatus and majority of the supraspinatus tendon s post interval rotator cuff repair revision. 2. Additional postoperative change of prior acromioplasty, distal clavicle resection and possible ten odesis. 3. Progression of mild glenohumeral osteoarthritis with high-grade chondromalacia and degenerative te aring at the superior to posterior superior glenoid labrum. Reviewed, dictated and finalized at location A. LATHE OPERATOR IMPRESSION: 1. Recurrent full-thickness tear of the entire infraspinatus and majority of th e supraspinatus tendons post interval rotator cuff repair revision. 2. Additional postoperative change of prior acromioplasty, distal clavicle rese ction and possible tenodesis. 3. Progression of mild glenohumeral osteoarthritis with high-grade chondromalac ia and degenerative tearing at the superior to posterior superior glenoid labru m.
== END 2021-05-01 16:36 | disposition home or self-care (01) ==
PROVIDERS: PCP Internal Medicine; Visit Provider Orthopaedic Surgery
DX: M19.012 Primary osteoarthritis, left shoulder (principal)
CPT/HCPCS: 73221

== ENCOUNTER 2021-06-08 08:30 | Outpatient (RCR) | payer MEDICARE, MEDICAID, SELFPAY ==
[2021-05-13 10:27] VITALS: BP_SYST 165
--- NOTE | 2021-05-13 11:31 | PTOPEVAL ---
Thank you for referring Ina Garcia to [facility].? The patient is scheduled to be seen for therapy? 2 x/week for 6 weeks. Please review, sign, date and return this plan of care DEBORAH. I agree with and certify that the following plan of care is medically necessary. 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 She does not perform fitness program. Subjective Information She was reaching and caught Query Text:As Reported By Patient/ her door with the left UE when Family she was falling on ice. She reports limitations with all activities involved with left UE for reaching, ADL's, lifting, IADL's. The pain will wake her at night. Pain Assessment Self Report Pain Assessment Left Shoulder(s) Reported Pain Level 8 Pain Frequency Acute Lowest Pain Intensity 4 Greatest Pain Intensity 8 Upper Extremity Range of Motion Scapular/ Shoulder Range of Motion Left Shoulder Flexion - Active 58 Shoulder Flexion - Passive 160 Shoulder Extension - Active 35 Shoulder Abduction - Active 45 Shoulder Abduction - Passive 165 Shoulder Medial Rotation - Active 80 Shoulder Medial Rotation - Active T6:Reach Behind the Back Shoulder Lateral Rotation - Active 70 Shoulder Lateral Rotation - Active C3*Reach Behind the Head Scapular/Shoulder Range of Motion Pain,Soft Tissue Restriction Limitations Scapular/Shoulder Range of Motion shoulder abd 70 dg Upper Extremity Muscle Strength Testing Scapular/Shoulder Left Shoulder Flexion Strength 3- Fair - Shoulder Extension Strength 4- Good - Shoulder Abduction Strength 3- Fair - Shoulder Medial Rotation Strength 3+ Fair + Shoulder Lateral Rotation Strength 3- Fair - Posture Posture Sitting Position Thoracic Spine Posture Increased Kyphosis Shoulder Posture (L) Rounded,(R) Rounded,(L) Elevated Scapula Posture (L) Elevated,(L) Winged,(R) Winged,(L) Tipped,(R) Tipped Palpation Assessment Palpation tenderness of left scapular region, upper arm, GH joint, AC joint PT Clinical Summary Pt referred to therapy due to recent near fall and catching self with left UE.
--- NOTE | 2021-05-15 16:06 | PCPTNOTE ---
Patient called & cancelled scheduled appointment this date due to, sister not doing well.
--- NOTE | 2021-05-18 10:34 | PCPTNOTE ---
Patient called & cancelled scheduled appointment this date due to of sister.
--- NOTE | 2021-06-01 10:18 | PCPTNOTE ---
Patient called & cancelled scheduled appointment this date due to illness.
[2021-06-08 08:28] VITALS: BP_SYST 175
--- NOTE | 2021-06-08 09:03 | PTOPEVAL ---
Physical Therapy Discharge Summary Thank you for referring Ina Garcia to [facility][Note 3].? Lana has attended 6 therapy visits to address her left shoulder impairments. As a result of skilled therapy services she demonstrates improved shoulder motion, improved pain and improved pain with daily task. She has reached maximal potential with skilled therapy services at this time. Will DC skilled therapy services. Please review, sign, date and return this discharge summary DEBORAH. I agree with and certify that the following plan of care is medically necessary. 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 She does not perform fitness program. Subjective Information She reports improved shoulder Query Text:As Reported By Patient/ pain, but continued limitation Family with reaching and pain if reaching too far. She is able to carry 10# without difficulty if below shoulder level. She is able to perform ADL's without pain or limitations. She is performing HEP daily, but c/o joint irritation with ROM. Improved pain with limited motion with AROM. Pain Assessment Left Shoulder(s) Reported Pain Level 3 Pain Description Aching,Soreness Pain Frequency Acute Lowest Pain Intensity 0 Greatest Pain Intensity 5 Upper Extremity Range of Motion Scapular/ Shoulder Range of Motion Left Shoulder Flexion - Active 58 Shoulder Flexion - Passive 175 Shoulder Extension - Active 45 Shoulder Abduction - Active 52 Shoulder Abduction - Passive 175 Shoulder Medial Rotation - Active 80 Shoulder Medial Rotation - Active T6Reach Behind the Back Shoulder Lateral Rotation - Active 70 Shoulder Lateral Rotation - Active back of head:Reach Behind the Head Scapular/Shoulder Range of Motion Pain,Soft Tissue Restriction Limitations Scapular/Shoulder Range of Motion shoulder abd 70 dg Upper Extremity Muscle Strength Testing Scapular/Shoulder Left Shoulder Flexion Strength 3- Fair - Shoulder Extension Strength 4 Good Shoulder Abduction Strength 3- Fair - Shoulder Medial Rotation Strength 4- Good - Shoulder Lateral Rotation Strength 3- Fair - Palpation Assessment Palpation moderate tenderness of left scapular region, upper arm, GH
== END 2021-06-08 15:38 | disposition home or self-care (01) ==
LOC: ANHPT 08:30
PROVIDERS: PCP Internal Medicine; Visit Provider Orthopaedic Surgery
DX: S46.012D Strain of muscle(s) and tendon(s) of the rotator cuff of left shoulder, subsequent encounter (principal)
CPT/HCPCS: 97110; 97161; 97162

== ENCOUNTER 2021-08-28 09:42 | Outpatient (CLI) | payer MEDICARE, MEDICAID, SELFPAY ==
--- NOTE | ~2021-08-28 | XR_ITS ---
EXAMINATION: XR chest 2V 08/28/2021 10:00 INDICATION: Acute upper respiratory infection. Cough. PROCEDURE: 2 view chest COMPARISON: 08/08/2012 FINDINGS: The lungs are clear. The cardiomediastinal silhouette is within normal limits. There are no pleural effusions. There is no pneumothorax suspected. There is dextroscoliosis of the thoracic spine. IMPRESSION: 1: NO ACUTE CARDIOPULMONARY DISEASE. Reviewed, dictated and finalized at location A.
== END 2021-08-28 09:43 | disposition home or self-care (01) ==
LOC: ANHIMG 09:46
PROVIDERS: PCP Internal Medicine; Visit Provider Internal Medicine
DX: J06.9 Acute upper respiratory infection, unspecified (principal)
CPT/HCPCS: 71046

== ENCOUNTER → 2021-09-01 01:31 | Outpatient (CLI) | payer MEDICARE, MEDICAID, SELFPAY ==
[2021-09-01 17:33] LABS: SARS-CoV-2 RNA PCR Negative
== END ==
PROVIDERS: PCP Internal Medicine; Visit Provider Internal Medicine
DX: R05.9 Cough, unspecified (principal); Z20.822 Contact with and (suspected) exposure to COVID-19
CPT/HCPCS: C9803; U0003; U0005

== ENCOUNTER 2021-10-12 10:55 | Outpatient (CLI) | payer MEDICARE, MEDICAID, SELFPAY ==
[2021-10-12 11:37] LABS: Appearance Urine Clear (Clear); Bilirubin Urine Negative (Negative); Color Urine Yellow (Yellow); Glucose Urine UA Negative (Negative); Ketones Urine Negative (Negative); Leukocyte Esterase Ur 1+ LEU/UL (Negative); Nitrate Urine Negative (Negative); Protein Urine Negative (Negative); Urobilinogen Urine 0.2 mg/dL (<2.0)
[2021-10-12 11:38] LABS: Add Urine Microscopic? YES; Blood Urine Trace-Intact (Negative)
[2021-10-12 11:57] LABS: Mucus Urine Rare /lpf; RBC Urine 0-2 /hpf (0-2); Squamous Epithelial Cell Urine Occasional /hpf (Few); WBC Clumps Urine Present /HPF; WBC Urine 31-50 /hpf
== END 2021-10-12 10:56 | disposition home or self-care (01) ==
LOC: ANHLAB 10:58
PROVIDERS: PCP Internal Medicine; Visit Provider Internal Medicine
DX: R30.0 Dysuria (principal)
CPT/HCPCS: 81001; 87077; 87086; 87186

== ENCOUNTER 2022-06-28 13:34 | Outpatient (CLI) | payer MEDICARE, MEDICAID, SELFPAY ==
[2022-06-28 14:10] LABS: Basophils Absolute Auto 0.1 K/mm3 (0.0-0.1); Basophils Percent Auto 1.2 % (0.2-1.2); Eosinophils Absolute Auto 0.1 K/mm3 (0-0.3); Eosinophils Percent Auto 1.8 % (0-4.4); Hematocrit 34.1 % (37.0-47.0); Immature Granulocyte Absolute 0.05 K/mm3 (0.00-0.031); Immature Granulocyte Percent A 0.7 % (0-0.5); Lymphocytes Absolute Auto 1.08 K/mm3 (0.9-3.2); Mean Corpuscular HGB Conc 32.3 g/dl (32-36); Mean Corpuscular Hemoglobin 32.9 pg (26-34); Mean Corpuscular Volume 102.1 fl (80-100); Mean Platelet Volume 9.4 fl (7.4-10.4); Monocytes Absolute Auto 0.7 K/mm3 (0.1-0.6); Monocytes Percent Auto 10.5 % (2.6-8.5); Neutrophils Absolute Auto 4.7 K/mm3 (1.3-6.7); Neutrophils Percent Auto 69.8 % (45.5-73.1); Platelet Count Result 377 k/mm3 (150-375); Red Blood Count 3.34 M/mm3 (4.2-5.4); Red Cell Distribution Width 16.1 % (11.5-14.5); White Blood Count 6.7 K/mm3 (4.5-10.0)
[2022-06-28 14:56] LABS: Alanine Aminotransferase 27 U/L (6-35); Albumin Level 4.5 g/dL (3.5-5.1); Alkaline Phosphatase 132 U/L (38-126); Anion Gap 5 mmol/L (8-16); Aspartate Amino Transferase 38 U/L (14-36); Bilirubin,Total 0.5 mg/dL (0.2-1.3); Blood Urea Nitrogen 19 mg/dL (7-17); Calcium 8.9 mg/dL (8.4-10.2); Carbon Dioxide 33 mmol/L (22-30); Chloride 99 mmol/L (98-107); Estimated Glomerular Filt Rate > 60; Glucose 89 mg/dL (65-110); Potassium 4.1 mmol/L (3.4-5.0); Sodium 137 mmol/L (137-145)
[2022-06-28 16:32] LABS: Iron 159 ug/dL (37-170)
[2022-06-28 16:42] LABS: Percent Iron Saturation 54 % (20-50)
== END 2022-06-28 13:35 | disposition home or self-care (01) ==
PROVIDERS: PCP Internal Medicine; Visit Provider Internal Medicine Hematology & Oncology
DX: D64.9 Anemia, unspecified (principal)
CPT/HCPCS: 36415; 80053; 82728; 83540; 83550; 85025

== ENCOUNTER 2022-10-25 10:38 | Outpatient (CLI) | payer MEDICARE, MEDICAID, SELFPAY ==
[2022-10-25 11:00] LABS: Basophils Absolute Auto 0.1 K/mm3 (0.0-0.1); Basophils Percent Auto 0.7 % (0.2-1.2); Eosinophils Percent Auto 0.4 % (0-4.4); Hemoglobin 11.6 g/dL (12.0-15.0); Immature Granulocyte Absolute 0.07 K/mm3 (0.00-0.031); Immature Granulocyte Percent A 0.9 % (0-0.5); Lymphocytes Absolute Auto 0.83 K/mm3 (0.9-3.2); Lymphocytes Percent Auto 10.2 % (18.3-44.2); Mean Corpuscular HGB Conc 32.2 g/dl (32-36); Mean Corpuscular Hemoglobin 31.7 pg (26-34); Mean Corpuscular Volume 98.4 fl (80-100); Mean Platelet Volume 8.9 fl (7.4-10.4); Monocytes Absolute Auto 0.5 K/mm3 (0.1-0.6); Monocytes Percent Auto 5.9 % (2.6-8.5); Neutrophils Absolute Auto 6.7 K/mm3 (1.3-6.7); Neutrophils Percent Auto 81.9 % (45.5-73.1); Platelet Count Result 381 k/mm3 (150-375); Red Blood Count 3.66 M/mm3 (4.2-5.4); Red Cell Distribution Width 13.4 % (11.5-14.5); White Blood Count 8.1 K/mm3 (4.5-10.0)
[2022-10-25 12:23] LABS: Iron 146 ug/dL (37-170)
[2022-10-25 12:32] LABS: Percent Iron Saturation 42 % (20-50)
[2022-10-25 13:33] LABS: Folic Acid > 20.0 ng/mL (2.76->20); Vitamin B12 > 1000.0 pg/mL (239-931)
== END 2022-10-25 10:39 | disposition home or self-care (01) ==
LOC: ANHLAB 10:43
PROVIDERS: PCP Nurse Practitioner Family; Visit Provider Internal Medicine Hematology & Oncology
DX: D64.9 Anemia, unspecified (principal)
CPT/HCPCS: 36415; 82607; 82728; 82746; 83540; 83550; 85025

== ENCOUNTER → 2023-01-06 11:09 | Outpatient (CLI) | payer MEDICARE, MEDICAID, SELFPAY ==
--- NOTE | ~2023-01-06 | XR_ITS ---
EXAMINATION: XR sacroiliac joints min 3V DATE: 01/06/2023 11:42 INDICATION: Arthropathic psoriasis. Dorsalgia. TECHNIQUE: 3 views of the sacroiliac joints were obtained. COMPARISON: Pelvis radiograph 02/22/2022 FINDINGS: Bone alignment is normal. No fracture. There is mild osteoarthritis of the sacroiliac joint s. There are bilateral total hip arthroplasties. 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 There is severe lumbar spondylosis. IMPRESSION: 1. Mild osteoarthritis of the sacroiliac joints. No evidence of inflammatory arthropathy. Reviewed, dictated and finalized at location E. IMPRESSION: 1. Mild osteoarthritis of the sacroiliac joints. No evidence of inflammatory ar thropathy.
== END ==
PROVIDERS: PCP Family Medicine
DX: L40.50 Arthropathic psoriasis, unspecified (principal); M53.3 Sacrococcygeal disorders, not elsewhere classified
CPT/HCPCS: 72202

== ENCOUNTER 2023-04-14 09:44 | Outpatient (CLI) | payer MEDICARE, MEDICAID, SELFPAY ==
[2023-04-14 10:12] LABS: Basophils Absolute Auto 0.1 K/mm3 (0.0-0.1); Basophils Percent Auto 1.4 % (0.2-1.2); Eosinophils Absolute Auto 0.3 K/mm3 (0-0.3); Eosinophils Percent Auto 3.9 % (0-4.4); Hematocrit 33.7 % (37.0-47.0); Hemoglobin 10.5 g/dL (12.0-15.0); Immature Granulocyte Absolute 0.04 K/mm3 (0.00-0.031); Immature Granulocyte Percent A 0.6 % (0-0.5); Lymphocytes Absolute Auto 1.43 K/mm3 (0.9-3.2); Lymphocytes Percent Auto 22.1 % (18.3-44.2); Mean Corpuscular HGB Conc 31.2 g/dl (32-36); Mean Corpuscular Hemoglobin 30.2 pg (26-34); Mean Corpuscular Volume 96.8 fl (80-100); Mean Platelet Volume 8.6 fl (7.4-10.4); Monocytes Absolute Auto 0.9 K/mm3 (0.1-0.6); Monocytes Percent Auto 13.8 % (2.6-8.5); Neutrophils Absolute Auto 3.8 K/mm3 (1.3-6.7); Neutrophils Percent Auto 58.2 % (45.5-73.1); Platelet Count Result 349 k/mm3 (150-375); Red Blood Count 3.48 M/mm3 (4.2-5.4); Red Cell Distribution Width 14.8 % (11.5-14.5); White Blood Count 6.5 K/mm3 (4.5-10.0)
--- NOTE | 2023-04-14 10:15 | ECG_ITS ---
Measurements Intervals [place] Rate: 100 P: 74 IA: 159 QRS: 60 QRSD: 77 T: 48 QT: 344 QTc: 445 Interpretive Statements SINUS TACHYCARDIA ABNORMAL RHYTHM ECG COMPARED TO ECG 05/02/2019 13:06:50 SINUS TACHYCARDIA NOW PRESENT Electronically Signed On 04-14-2023 14:04:05 [employer] by Eleuterio Pitt M.D.
[2023-04-14 10:22] LABS: Appearance Urine Clear (Clear); Bilirubin Urine Negative (Negative); Blood Urine Trace-lysed (Negative); Glucose Urine UA Negative (Negative); Ketones Urine Negative (Negative); Nitrate Urine Negative (Negative); Protein Urine Negative (Negative); Specific Grav Ur 1.015 (1.001-1.035); pH Urine 6.5 (5.0-9.0)
[2023-04-14 10:23] LABS: Color Urine Yellow (Yellow); Leukocyte Esterase Ur Trace LEU/UL (Negative); Urobilinogen Urine 0.2 mg/dL (<2.0)
[2023-04-14 10:29] LABS: Anion Gap 6 mmol/L (8-16); Blood Urea Nitrogen 9 mg/dL (7-17); Calcium 8.9 mg/dL (8.4-10.2); Carbon Dioxide 32 mmol/L (22-30); Chloride 98 mmol/L (98-107); Estimated Glomerular Filt Rate > 60; Glucose 86 mg/dL (65-110); Potassium 3.7 mmol/L (3.4-5.0); Sodium 136 mmol/L (137-145)
[2023-04-14 10:42] LABS: Add Urine Microscopic? YES; RBC Urine 0-2 /hpf (0-2); Squamous Epithelial Cell Urine Rare /hpf (Few); WBC Urine 0-5 /hpf
== END 2023-04-14 09:45 | disposition home or self-care (01) ==
PROVIDERS: PCP Nurse Practitioner Family; Visit Provider Orthopaedic Surgery
DX: R03.0 Elevated blood-pressure reading, without diagnosis of hypertension (principal); M17.12 Unilateral primary osteoarthritis, left knee; M06.9 Rheumatoid arthritis, unspecified; D64.9 Anemia, unspecified; M25.569 Pain in unspecified knee; N39.0 Urinary tract infection, site not specified
CPT/HCPCS: 36415; 80048; 81001; 85025; 93005

== ENCOUNTER 2023-05-04 09:45 | Outpatient (CLI) | payer MEDICARE, MEDICAID, SELFPAY ==
[2023-05-04 11:33] LABS: Albumin Level 4.5 g/dL (3.5-5.1)
[2023-05-04 11:34] LABS: INR 0.9
[2023-05-04 11:49] LABS: Urine Cotinine NEGATIVE
[2023-05-04 11:51] LABS: Hemoglobin A1C 5.2 % (<5.7)
[2023-05-04 12:32] LABS: MRSA (PCR) NOT DETECTED (NOT DETECTE)
== END 2023-05-04 09:46 | disposition home or self-care (01) ==
PROVIDERS: PCP Nurse Practitioner Family; Visit Provider Orthopaedic Surgery
DX: M17.12 Unilateral primary osteoarthritis, left knee (principal); Z01.818 Encounter for other preprocedural examination
CPT/HCPCS: 80307; 82040; 83036; 85610; 85730; 87641

== ENCOUNTER 2023-05-18 02:00 | Day surgery (SDC) | payer MEDICARE, MEDICAID, SELFPAY ==
[2023-05-04 10:06] VITALS: BMI 21.9
--- NOTE | 2023-05-04 10:35 | PC.NURSE ---
Report to the Outpatient Waiting Room, entrance under the green pavilion located off [facility], at time __0600 on date __05/18/23 . Planned Procedure Time: __729 . Time changes happen often and if your time is changed the preop area will call you the afternoon before. - You and your visitor will be asked to self-screen and do not enter if you have any COVID symptoms. - A mask is optional within the hospital at this time. Patients may have clear liquids (water, carbonated beverages, clear teas, apple juice) until 3 hours prior to surgery( 4:30 AM) with a maximum of 20 ounces. - No food from midnight until time of surgery - Infants may have breast milk until 4 hours before surgery, formula 6 hours prior to surgery. - Children will be allowed to drink immediately following surgery. If applicable, please bring a bottle or sippy cup to assist with drinking. Juice, water, soda, and popsicles are readily available. For infants on formula, please bring formula the day of surgery. Pacifiers are allowed. Take the following medications with a SIP of water the morning of surgery: __ALPRAZOLAM,ESCITALOPRAM DO NOT STOP ANY OF YOUR OTHER PRESCRIPTION MEDICATIONS PRIOR TO SURGERY ?EXCEPT THE FOLLOWING Medications to discontinue per physician ALL VITAMINS AND SUPPLEMENTS 3 DAYS PRE OP .LAST DOSE 05/14/23 Please no make-up, nail hungarian, hairspray, perfume, deodorant, or body powder the day of surgery. No jewelry (including any body piercings) or valuables the day of surgery, leave them at home. Please take a shower or bath the night before, or the morning of, surgery with an antibacterial soap. Wear comfortable, loose fitting clothing. Children are encouraged to wear pajamas. - Jewelry must be removed prior to entering the operating room. Rings and piercings that are not removed may be cut off. - The hospital will not accept responsibility for valuables. - Please leave all valuables, including medications, at home the day of surgery. If you are going home after surgery, a licensed driver education road instructor must drive you home. - NO public transportation without another adult if you receive anesthesia. - We recommend that an adult stay with you for 24 hours following discharge. - We also recommend that you do not drive, make important decision, drink alcoholic beverages, or take any drugs that were not prescribed by your health care provider for at least 24 hours after your discharge time. Follow any additional instructions given to you from your surgeon. If you or anyone in your household have experienced Covid symptoms in the past week, please notify your surgeon or the nurse liaison at the phone number below for possible testing. VERBAL AND WRITTEN instructions given to __PATIENT and asked if any additional questions and then verbalized understanding. Patient advised to call surgeon office or pre surgery nurse liaison [phone] if any additional questions.
[2023-05-04 10:57] VITALS: BP 136/92; PULSE 99; RESP 18; TEMP 37.2; O2SAT 98
--- NOTE | 2023-05-17 14:51 | WPDANESEPPF ---
Anes - Initial Pre Proc Eval Procedure: Operation Date: 05/18/23 07:30 Proposed Procedures p Left Total Knee Arthroplasty - Bridger Noonna MD Date/Time: 05/17/23 14:51 Surgeon: Bridger Noonan MD Pre Op Diagnosis: left knee DJD Patient Data Age: 67 Gender: F Height: 1.47 m Weight: 47.5 kg Last Vital Signs Temp 37.2 C 05/04/23 10:57 Pulse 99 05/04/23 10:57 Resp 18 05/04/23 10:57 BP 136/92 H 05/04/23 10:57 Pulse Ox 98 05/04/23 10:57 O2 Del Method Room Air 05/04/23 10:57 Allergies Allergy/AdvReac Type Severity Reaction Status Date / Time adalimumab Allergy Mild Itching Verified 05/18/23 06:57 codeine AdvReac Mild Itching Verified 05/18/23 06:57 Home Medications Medication Instructions Recorded Confirmed Type ascorbic acid (vitamin C) 1,000 mg 1 gm PO DAILY 04/26/19 05/18/23 History tablet celecoxib 200 mg capsule 200 mg PO BID 04/26/19 05/18/23 History cholecalciferol (vitamin D3) 25 1,000 unit PO DAILY 04/26/19 05/18/23 History mcg (1,000 unit) capsule ferrous sulfate 325 mg (65 mg 325 mg PO DAILY 04/26/19 05/18/23 History iron) tablet (Feosol) folic acid 1 mg tablet 1 mg PO DAILY 04/26/19 05/18/23 History lactobacillus combination no.8 3 3,000 mmu cells PO DAILY 04/26/19 05/18/23 History billion cell capsule (Adult Probiotic) multivitamin 1 tablet PO DAILY 04/26/19 05/18/23 History magnesium 250 mg tablet 250 mg PO DAILY 03/04/20 05/18/23 History zinc 50 mg tablet 50 mg PO DAILY 03/04/20 05/18/23 History methotrexate sodium 2.5 mg tablet 2.5 mg PO .COMPLEX 01/21/21 05/18/23 History esomeprazole magnesium 40 mg 40 mg PO DAILY 02/03/22 05/18/23 History capsule,delayed release (Nexium) melatonin 10 mg capsule 10 mg PO DAILY PRN Insomnia 08/26/22 05/18/23 History tramadol 50 mg tablet 50 mg PO Q6H PRN Pain 01/27/23 05/18/23 History escitalopram oxalate 20 mg tablet See Rx Instructions .Route 04/08/23 05/18/23 Rx .COMPLEX #90 tabs abatacept 125 mg/mL subcutaneous 125 mg subcut WEEKLY 05/04/23 05/18/23 History auto-injector (Orencia ClickJect) calcium carbonate 600 mg-vitamin 1 tablet PO DAILY 05/04/23 05/18/23 History D3 10 mcg (400 unit) tablet (Calcium 600 + D(3)) fluticasone propionate 50 1 spray intranasal PRN PRN Allergy 05/04/23 05/18/23 History mcg/actuation nasal Symptoms spray,suspension hydroxychloroquine 200 mg tablet 200 mg PO DAILY 05/04/23 05/18/23 History sucralfate 1 gram tablet 1 g PO BID 05/04/23 05/18/23 History alprazolam 0.5 mg tablet 0.5 mg PO BID PRN anxiety #60 tabs 05/11/23 05/18/23 Rx chlorhexidine gluconate 4 % 1 applic topical ONCE #237 mL 05/11/23 05/18/23 Rx topical liquid (Hibiclens) Patient hx anesthesia problems: none Family hx anesthesia problems: none Results Review: All pre-operative results and documents have been reviewed as part of the pre-operative evaluation. [facility] Past Medical History Medical History (Updated 05/17/23 @ 14:52 by Delgado Jules, ) Anemia Chronic right shoulder pain Crohn's disease Gastroesophageal reflux disease Glaucoma Immunosuppressed status Iron deficiency anemia Left knee DJD Left shoulder pain Mixed hyperlipidemia Osteoarthritis Osteoporosis PONV (postoperative nausea and vomiting) Psoriatic arthritis Rheumatoid arthritis RLS (restless legs syndrome) Surgical History Surgical History (Updated 05/09/23 @ 14:14 by TANNER Lyons) History of section History of temporal artery biopsy In October 2016. No pathologic abnormalities noted. S/P total knee arthroplasty Status post ankle fusion With subsequent hardware removal and redo. Status post bilateral total hip replacement Status post cholecystectomy Status post rotator cuff repair Bilateral. Status post total right knee replacement Family History Family History Mother Family history of osteoporosis Cerebrovascular accid
[2023-05-18] VITALS (12 sets, daily range): BP systolic 124–178; BP diastolic 80–110; PULSE 100–122; RESP 12–18; TEMP 36.5–37.7; O2SAT 97–100
--- NOTE | ~2023-05-18 | XR_ITS ---
EXAMINATION: XR_[id number]_CR DATE: 05/18/2023 10:35 INDICATION: Postoperative evaluation following left total knee arthroplasty. TECHNIQUE: Anteroposterior and lateral views of the left knee were obtained. COMPARISON: None. FINDINGS: Left total knee arthroplasty without patellar resurfacing appears well seated and in near anatomic al ignment. No fractures identified. Anterior skin nevaeh and expected postoperative subcutaneous and intra-articular gas. IMPRESSION: 1. Left total knee arthroplasty, negative for postoperative purposes. Reviewed, dictated and finalized at location A. LOPMENT DIRECTOR
[2023-05-18] MEDS: LACTATED RINGERS 1,000 ML 30 ML IV CONT ×2 (06:30→10:07)
[2023-05-18] MEDS: ACETAMINOPHEN 500 MG TABLET 1000 MG PO (06:56)
--- NOTE | 2023-05-18 07:19 | WPDANESPNB ---
Anes - Peripheral Nerve Block Date/Time: 05/18/23 07:19 I have discussed with the patient/family/POA the placement of a peripheral nerve block for post-operative pain management, including associated risks, benefits, complications, and side effects. Alternative methods of post-operative analgesia were detailed. Questions were solicited and answers provided to the satisfaction of the patient/family/POA. Time-Out: A pre-procedural Time-Out was completed immediately before starting the procedure and confirmed: Patient Identification, Site, Procedure, Patient Position and the Availability of Requisite Equipment. Clinical Indications: Acute post-operative pain management requested by the operative surgeon. Nerve Block Insertion Note Anes-nerve block: adductor canal left Patient position: supine Skin prep: chlorhexidine Needle: 22 gauge, stimulating, insulated echogenic needle. Needle length: 80 mm Technique: ultrasound Injectate: bupivacaine 0.5% with epi 5 mcg/ml (30cc - no epi) Observations: tolerated well Complications: none Procedure start time:: 717 Procedure end time:: 721
--- NOTE | 2023-05-18 07:21 | WPDHPUPDATE1 ---
History and Physical Update Update Date/Time: 05/18/23 07:21 History and Physical has been reviewed, including an updated exam of the patient. There are NO changes in the patient's condition. Risks, benefits, and alternatives have been discussed and questions answered. Patient agrees to proceed with procedure.
[2023-05-18] MEDS: ceFAZolin 2 GM/D5W 50 ML 2 GM/50 ML BAG IVPB ×3 (07:33→23:12)
[2023-05-18] MEDS: TRANEXAMIC ACID 1,000MG/ISO100 1,000 MG/100 ML BAG 200 MG IVPB (08:00)
[2023-05-18] MEDS: SODIUM CHLORIDE 0.9% IV 37.7 ML, MORPHINE SULFATE INJ (*CRX) 2 MG, ROPivacaine HCL 1% 2... INFILTRATE (08:06)
[2023-05-18] MEDS: GENTAMICIN BONE CEMENT REFOBACIN 1 EACH TOPICAL (08:07)
[2023-05-18] MEDS: TRANEXAMIC ACID 1,000 MG/10 ML AMPUL 1000 MG IV PUSH (09:23)
--- NOTE | 2023-05-18 10:01 | W.PM.PROC2 ---
Procedure Note - Detailed Date of Procedure 05/18/23 Pre-op Diagnosis left knee DJD Post-op Diagnosis Same Procedure Performed L TKA Surgeon Bridegr Noonan MD Anesthesia General Description of Procedure THE LEFT KNEE WAS PREPPED AND DRAPED IN THE STERILE FASHION. A MIDLINE SKIN INCISION WAS MADE. A MEDIAL PARAPATELLAR ARTHROTOMY WAS MADE. THE PATELLA WAS EVERTED. THERE WAS TRICOMPARTMENT DJD. THERE WAS MINIMAL PATELLA DJD. AN INTRAMEDULLARY DAVID WAS PLACED IN THE FEMUR. A DISTAL FEMORAL CUT WAS MADE IN 5 DEGREES OF VALGUS REMOVING APPROXIMATELY 9 MM OF BONE FROM THE DISTAL FEMUR. THE FEMUR WAS SIZED TO 60. A 60 FEMORAL CUTTING BLOCK WAS PLACED IN 3 DEGREES OF EXTERNAL ROTATION AND IN ALIGNMENT WITH ARUN'S LINE AND THE TRANSEPICONDYLAR AXIS. ANTERIOR POSTERIOR AND CHAMFER CUTS WERE MADE. THE CUTS WERE EXCELLENT. NEXT AN INTRAMEDULLARY CUTTING GUIDE WAS PLACED IN THE TIBIA. A TRANS TIBIAL CUT WAS MADE ALONG THE LONG AXIS OF THE TIBIA. APPROXIMATELY 10 MM OF BONE WAS REMOVED FROM THE HIGH SIDE OF THE TIBIA. THE TIBIA WAS THEN PLANED TO A SMOOTH SURFACE. POSTERIOR FEMORAL OSTEOPHYTES WERE REMOVED FROM THE FEMORAL CONDYLES. A 67 TIBIAL TRIAL WAS PLACED IN ALIGNMENT WITH THE 1/3 MEDIAL ASPECT OF THE TIBIAL TUBERCLE. THEN A 60 FEMORAL TRIAL COMPONENT WAS PLACED. BOTH HAD EXCELLENT FITS. EVENTUALLY A 12 MM POLYETHYLENE TRIAL COMPONENT WAS PLACED. THE KNEE WAS TAKEN THROUGH A RANGE OF MOTION. THE KNEE CAME OUT TO FULL EXTENSION. THERE WAS NO ABNORMAL TILT TO THE PATELLA. THERE WAS GOOD A/P AND VARUS/VALGUS STABILITY. THERE WAS NO EXCESSIVE ROLL BACK WITH FLEXION. THE TRIAL COMPONENTS WERE REMOVED. THEN A 60 FEMORAL COMPONENT AND 67 TIBIAL COMPONENT WITH A 12 POLYETHYLENE COMPONENT WERE CEMENTED INTO PLACE. ONCE THE CEMENT WAS HARD THE KNEE WAS TAKEN THROUGH A ROM AGAIN AND FOUND TO BE STABLE WITH NO PATELLA TILT NO EXCESSIVE ROLL BACK WITH FLEXION AND GOOD STABILITY WITH COMPLETE AND FULL EXTENSION. THE KNEE WAS IRRIGATED WITH STERILE BETADINE AND WATER FOR ABOUT 3 MINUTES. THE BLEEDERS WERE CAUTERIZED. THE ARTHROTOMY WAS REPAIRED WITH NUMBER 1 VICRYL. THE SUB CUTANEOUS LAYER WITH 2-0 VICRYL AND THE SKIN WITH KELSEY. THE WOUND WAS WASHED AND A STERILE DRESSING WAS APPLIED. PATIENT WAS EXTUBATED. Estimated Blood Loss -150.0 Pathology None sent Complications No immediate complications Condition Stable Disposition PACU
[2023-05-18] MEDS: fentaNYL CITRATE INJ (*CRX) 100 MCG/2 ML VIAL 25 MCG IV PUSH ×5 (10:22→10:54)
--- NOTE | 2023-05-18 11:06 | ADMGEN ---
This patient, Ina Garcia, was admitted to Medical Room 243-. Patient/family oriented to hospital policies and general routines including ID bracelet, bed and alarms, visiting hours, pain management, procedures, bathroom and other care routines, personal items, smoking policy, room service/diet, and visiting hours. Information on how to activate the Rapid Response Team has been discussed. Patient/Family are encouraged to report perceived risks to care and to ask questions if they do not understand what they are told or what they should do.
[2023-05-18] MEDS: CHOLECALCIFEROL 1,000 UNITS TABLET 1000 UNITS PO (11:26)
[2023-05-18] MEDS: FAMOTIDINE 20 MG TABLET PO ×2 (11:26→20:01)
[2023-05-18] MEDS: ASCORBIC ACID 500 MG TABLET 1000 MG PO (11:26)
[2023-05-18] MEDS: FERROUS SULFATE 325 MG TABLET DR PO (11:26)
[2023-05-18] MEDS: SENNA/DOCUSATE SODIUM TABLET 2 TAB PO ×2 (11:26→17:08)
[2023-05-18] MEDS: ASPIRIN 325 MG ENTERIC TABLET PO ×2 (11:26→20:01)
[2023-05-18] MEDS: KETOROLAC 15 MG/ML VIAL (*BKC) IV PUSH ×3 (11:27→23:12)
[2023-05-18] MEDS: polyethylene glycoL 3350 17 GM POWD.PACK PO (11:27)
[2023-05-18] MEDS: oxyCODONE/ACETAMINOPHEN (*CRX) 5-325 MG TABLET 1 TABLET PO ×2 (12:37→20:01)
[2023-05-18] MEDS: ALPRAZolam (*CRX) 0.5 MG TABLET PO (20:01)
[2023-05-19 00:39] VITALS: BP 134/82; PULSE 100; RESP 14; TEMP 36.4; O2SAT 98
[2023-05-19 04:43] VITALS: BP 136/83; PULSE 100; RESP 16; TEMP 37.1; O2SAT 98
[2023-05-19] MEDS: KETOROLAC 15 MG/ML VIAL (*BKC) IV PUSH ×2 (05:43→11:47)
[2023-05-19] MEDS: ceFAZolin 2 GM/D5W 50 ML 2 GM/50 ML BAG IVPB (05:43)
[2023-05-19 06:11] LABS: Basophils Absolute Auto 0.1 K/mm3 (0.0-0.1); Basophils Percent Auto 0.6 % (0.2-1.2); Eosinophils Absolute Auto 0.1 K/mm3 (0-0.3); Eosinophils Percent Auto 0.4 % (0-4.4); Hematocrit 35.4 % (37.0-47.0); Hemoglobin 11.1 g/dL (12.0-15.0); Immature Granulocyte Absolute 0.14 K/mm3 (0.00-0.031); Immature Granulocyte Percent A 0.8 % (0-0.5); Mean Corpuscular HGB Conc 31.4 g/dl (32-36); Mean Corpuscular Hemoglobin 30.2 pg (26-34); Mean Corpuscular Volume 96.5 fl (80-100); Mean Platelet Volume 9.1 fl (7.4-10.4); Monocytes Absolute Auto 1.6 K/mm3 (0.1-0.6); Monocytes Percent Auto 9.7 % (2.6-8.5); Neutrophils Absolute Auto 13.6 K/mm3 (1.3-6.7); Neutrophils Percent Auto 82.5 % (45.5-73.1); Platelet Count Result 385 k/mm3 (150-375); Red Blood Count 3.67 M/mm3 (4.2-5.4); Red Cell Distribution Width 16.8 % (11.5-14.5); White Blood Count 16.5 K/mm3 (4.5-10.0)
[2023-05-19 06:24] LABS: Anion Gap 3 mmol/L (8-16); Blood Urea Nitrogen 12 mg/dL (7-17); Carbon Dioxide 35 mmol/L (22-30); Chloride 98 mmol/L (98-107); Estimated Glomerular Filt Rate > 60; Glucose 87 mg/dL (65-110); Potassium 3.1 mmol/L (3.4-5.0); Sodium 136 mmol/L (137-145)
[2023-05-19] MEDS: FAMOTIDINE 20 MG TABLET PO (08:43)
[2023-05-19] MEDS: oxyCODONE/ACETAMINOPHEN (*CRX) 5-325 MG TABLET 1 TABLET PO (08:43)
[2023-05-19] MEDS: ASPIRIN 325 MG ENTERIC TABLET PO (08:43)
[2023-05-19] MEDS: FERROUS SULFATE 325 MG TABLET DR PO (08:43)
[2023-05-19] MEDS: ESCITALOPRAM OXALATE 10 MG TABLET BY MOUTH (08:43)
[2023-05-19] MEDS: ASCORBIC ACID 500 MG TABLET 1000 MG PO (08:43)
[2023-05-19] MEDS: CHOLECALCIFEROL 1,000 UNITS TABLET 1000 UNITS PO (08:44)
[2023-05-19] MEDS: ALPRAZolam (*CRX) 0.5 MG TABLET PO (08:48)
--- NOTE | 2023-05-19 08:58 | P.PNAN_ITS ---
Anes - Prog Note Post-Op Date/Time: 05/19/23 08:58 Cardiovascular status: normal Respiratory status: normal Airway patency: baseline Mental status: baseline Post-Op hydration status: normal Vital Signs: Last Vital Signs Temp 37.1 C 05/19/23 04:43 Pulse 100 05/19/23 04:43 Resp 16 05/19/23 04:43 BP 136/83 05/19/23 04:43 Pulse Ox 98 05/19/23 04:43 O2 Del Method Room Air 05/18/23 20:00 O2 Flow Rate 8 05/18/23 10:15 Pain Score (VAS): 0 I/O: Intake & Output 05/18/23 05/19/23 05/19/23 23:59 07:59 15:59 Intake Total 170 Output Total 1300 700 Balance -1130 -700 Laboratory Tests 05/19/23 05:27 05/19/23 05:27 05/19/23 05:27 WBC 16.5 H RBC 3.67 L Hgb 11.1 L Hct 35.4 L MCV 96.5 MCH 30.2 MCHC 31.4 L RDW 16.8 H Plt Count 385 H MPV 9.1 Immature Gran % (Auto) 0.8 H Neut % (Auto) 82.5 H Lymph % (Auto) 6.0 L [place] % (Auto) 9.7 H Eos % (Auto) 0.4 Baso % (Auto) 0.6 Lymph # (Auto) 1.00 [place] # (Auto) 1.6 H Eos # (Auto) 0.1 Baso # (Auto) 0.1 Abs Immat Gran (auto) 0.14 H Absolute Neuts (auto) 13.6 H Absolute Nucleated RBC 0.0 Nucleated RBC % 0.0 Sodium 136 L Potassium 3.1 L Chloride 98 Carbon Dioxide 35 H Anion Gap 3 L BUN 12 Creatinine 0.50 L Estim Creat Clear Calc Not Reportable Estimated GFR > 60 Glucose 87 Calcium 9.0 Post-procedural complaints: none Patient Feedback: Patient satisfied with anesthetic care.
--- NOTE | 2023-05-19 09:31 | PM.PNORT ---
Progress Note: A&P Assessment and Plan (1) S/P total knee arthroplasty: Qualifiers: Laterality: left Qualified Code(s): Z96.652 - Presence of left artificial knee joint Code(s): Z96.659 - Presence of unspecified artificial knee joint Status: Acute Assessment and Plan: POD #1 : Left TKA Continue PT/OT. WBAT. Walker. HIGH FALL RISK. Continue pain control. Ice Knee. Protect skin. DVT prophylaxis with Aspirin. SCDs. Incentive Spirometry Use reviewed. Monitor Dressing. Change prior to discharge. Bowel Regimen. Dispo: Home with Home Health pending progress with PT/OT Plan Reviewed history, exam, radiographs and current labs with attending MD and covering surgeon, Dr. Noonan, who agrees with current plan as indicated above. No further recommendations from Dr. Noonan at this time. Subjective Subjective Date/Time Seen: 05/19/23 09:31 Post Op day: 1 Interval history: POD #1: Left TKA Patient doing very well. Pain well controlled. No new concerns. Hopeful for d/c home today. Review of Systems Review of Systems: All systems reviewed & are unremarkable except as noted in HPI and below Constitutional: Constitutional: Denies fever(s) and Denies headache(s) ENT: Denies headache(s) Cardiovascular: Cardiovascular: Denies chest pain, Denies diaphoresis, Denies palpitations and Denies dyspnea Respiratory: Respiratory: Denies dyspnea Gastrointestinal: Gastrointestinal: Denies abdominal pain, Denies constipation, Denies nausea and Denies vomiting Genitourinary: Genitourinary: Reports nocturia and Denies dysuria Musculoskeletal: Musculoskeletal: Reports arthralgias (Left Knee ), Reports joint swelling (Left Knee ) and Reports limited range of motion (ROM limited due to recent surgical intervention LEFT Knee ) Neurologic: Denies headache(s) Endocrine: Endocrine: Denies palpitations Exam Const: General: comfortable and no acute distress Resp: Effort & Inspection: normal respiratory effort Cardio: Rate: regular rate Rhythm: regular rhythm GI: GI Palp: Yes Soft to palpation, No Tenderness to palpation present (GI) and No Guarding due to palpation present (GI) Skin: General skin exam: wounds noted (see extremity assessment ) Wounds: wounds noted (see extremity assessment ) Neuro: Cognition (Neuro): normal cognition Other: NV intact aside from block. Moves toes. Sensation intact to light touch. +ankle dorsiflexion/plantarflexion. Extrem: Left lower extremity: normal to inspection, normal capillary refill, knee Details: tenderness (diffuse ) Location: of the patella, swelling (moderate consistent to recent surgery ), abnormal ROM (limited due to recent surgery ) Details: pain with active ROM and pain with passive ROM and ecchymosis (as expected with recent surgery. NO hematoma. ), lower leg (Negative Ashley's Sign ), ankle (+ankle dorsiflexion/plantarflexion ) Details: normal to inspection, no edema and normal ROM; no tenderness and no swelling and foot Details: normal capillary refill, toes with normal ROM, vascular exam Details: dorsalis pedis pulse present and motor-sensory exam light-touch normal; no tenderness Other: Incision left TKA dressing c/d/i. No hematoma. No signs of infection. No wound dehiscence. Psych: Mental Status: mental status grossly normal Objective Data Vital Signs Vital Signs: Vital Signs - 24 hr 05/18/23 10:07 05/18/23 10:15 05/18/23 10:29 Temperature 36.9 C Pulse Rate 120 H 118 H 120 H Respiratory Rate 13 12 14 Blood Pressure 166/100 H 178/110 H 153/94 H Pulse Oximetry 100 100 99 Oxygen Delivery Simple Face Mask Simple Face Mask Room Air Oxygen Flow Rate 8 8 05/18/23 10:44 05/18/23 10:52 05/18/23 11:07 Temperature 37.1 C Pulse Rate 122 H 115 H 116 H Respiratory Rate 17 17 18 Blood Pressure 146/98 H 155/89 H 143/84 H Pulse Oximetry 99 99 97 Oxygen Delivery Room Air Room Air Oxygen Flow Rate 05/18/23 11:22 05/18/23
[2023-05-19 11:24] VITALS: BP 121/73; PULSE 112; RESP 18; TEMP 36.6; O2SAT 98
[2023-05-19 14:20] VITALS: BP 118/72; PULSE 118; RESP 18; TEMP 36.9; O2SAT 96
--- NOTE | 2023-05-19 14:57 | PM.DS ---
DS: Admitting Diagnosis Discharge Date 05/19/2023 Admitting Diagnosis Left TKA DS: Discharge Diagnosis Discharge Diagnosis (1) S/P total knee arthroplasty: Qualifiers: Laterality: left Qualified Code(s): Z96.652 - Presence of left artificial knee joint Code(s): Z96.659 - Presence of unspecified artificial knee joint Status: Acute Assessment and Plan: POD #1 : Left TKA Continue PT/OT. WBAT. Walker. HIGH FALL RISK. Continue pain control. Ice Knee. Protect skin. DVT prophylaxis with Aspirin. SCDs. Incentive Spirometry Use reviewed. Monitor Dressing. Change prior to discharge. Bowel Regimen. Dispo: Home with Home Health pending progress with PT/OT Plan Reviewed history, exam, radiographs and current labs with attending MD and covering surgeon, Dr. Noonan, who agrees with current plan as indicated above. No further recommendations from Dr. Noonan at this time. DS: Summary Hospital Course Reason for hospitalization: Left TKA Hospital Course: 67 year old female admitted s/p Left TKA for postoperative medical management, pain control and mobilization with PT/OT. Patient progressed well with PT/OT. Pain and vitals remained stable throughout. The patient has been cleared to be discharged home with home health at this time. All discharge care instructions reviewed at depth. New medications reviewed. Follow up planned for 3 weeks in the outpatient orthopedic clinic with Dr. Noonan. Dr. Noonan in agreement with safe discharge at this time. Status at Discharge Functional status at discharge: uses cane/walker Overall status at discharge: patient is progressing back to baseline Time Spent with Patient Time attestation: Total time spent providing and/or coordinating discharge services: Exam Const: General: comfortable and no acute distress Resp: Effort & Inspection: normal respiratory effort Cardio: Rate: regular rate Rhythm: regular rhythm Skin: General skin exam: wounds noted (see extremity assessment ) Wounds: wounds noted (see extremity assessment ) Neuro: Cognition (Neuro): normal cognition Other: NV intact aside from block. Moves toes. Sensation intact to light touch. +ankle dorsiflexion/plantarflexion. Extrem: Left lower extremity: normal to inspection, normal capillary refill, knee Details: tenderness (diffuse ) Location: of the patella, swelling (moderate consistent to recent surgery ), abnormal ROM (limited due to recent surgery ) Details: pain with active ROM and pain with passive ROM and ecchymosis (as expected with recent surgery. NO hematoma. ), lower leg (Negative Ashley's Sign ), ankle (+ankle dorsiflexion/plantarflexion ) Details: normal to inspection, no edema and normal ROM; no tenderness and no swelling and foot Details: normal capillary refill, toes with normal ROM, vascular exam Details: dorsalis pedis pulse present and motor-sensory exam light-touch normal; no tenderness Other: Incision left TKA dressing c/d/i. No hematoma. No signs of infection. No wound dehiscence. Psych: Mental Status: mental status grossly normal DS: Data Data Completed and Pending Labs on day of discharge: Labs from last 24 hours 05/19/23 05:27 WBC 16.5 H RBC 3.67 L Hgb 11.1 L Hct 35.4 L MCV 96.5 MCH 30.2 MCHC 31.4 L RDW 16.8 H Plt Count 385 H MPV 9.1 Immature Gran % (Auto) 0.8 H Neut % (Auto) 82.5 H Lymph % (Auto) 6.0 L Freestone % (Auto) 9.7 H Eos % (Auto) 0.4 Baso % (Auto) 0.6 Lymph # (Auto) 1.00 Freestone # (Auto) 1.6 H Eos # (Auto) 0.1 Baso # (Auto) 0.1 Abs Immat Gran (auto) 0.14 H Absolute Neuts (auto) 13.6 H Absolute Nucleated RBC 0.0 Nucleated RBC % 0.0 Sodium 136 L Potassium 3.1 L Chloride 98 Carbon Dioxide 35 H Anion Gap 3 L BUN 12 Creatinine 0.50 L Estim Creat Clear Calc Not Reportable Estimated GFR > 60 Glucose 87 Calcium 9.0 Discharge Plan Discharge Patient Disposition: Home Health Service Discharge
== END 2023-05-19 15:55 | disposition home health service (06) ==
LOC: ANHSURGERY 06:28 → ANH2MED 11:02
PROVIDERS: PCP Nurse Practitioner Family; Visit Provider Orthopaedic Surgery
PROC: (CPT 27447; principal; 2023-05-18 07:30)
DX: M17.12 Unilateral primary osteoarthritis, left knee (principal); G89.18 Other acute postprocedural pain; K50.90 Crohn's disease, unspecified, without complications; K21.9 Gastro-esophageal reflux disease without esophagitis; E78.2 Mixed hyperlipidemia; M81.0 Age-related osteoporosis without current pathological fracture; M06.9 Rheumatoid arthritis, unspecified; L40.50 Arthropathic psoriasis, unspecified; D50.9 Iron deficiency anemia, unspecified; H40.9 Unspecified glaucoma; Z79.631 Long term (current) use of antimetabolite agent; Z79.620 Long term (current) use of immunosuppressive biologic
CPT/HCPCS: 27447; 64447; 36415; 73560; 80048; 85025; 86850; 86900; 86901; 97110; 97116; 97161; 97165; 97530; 97535; A9270; C1713; C1776; J0171; J0690; J1100; J1885; J2250; J2270; J2405; J2704; J2795; J3010; J7120

== ENCOUNTER 2023-06-30 10:00 | Outpatient (RCR) | payer MEDICARE, MEDICAID, SELFPAY ==
--- NOTE | 2023-05-26 16:04 | OPREHPOC ---
Outpatient Therapy Plan of Care This is a Multidisciplinary Plan of Care that may contain components documented by all disciplines (PT, OT, and ST.) PT Problem 1 PT Problem #1 Knowledge Deficit PT Goal 1 Goal 1* indep with HEP 2* correct use of assistive device PT Problem 2 PT Problem #2 Pain PT Goal 1 Goal 1* pain L knee at worst of 10 2* pt report activity level with light home tasks and walking 30 minutes PT Problem 3 PT Problem #3 Impaired Flexibility PT Goal 1 Goal increase L knee ROM to improve transfer sit/stand and mobility skills active motion in sittin* flexion 110' 2* extension 0' PT Problem 4 PT Problem #4 Impaired Strength PT Goal 1 Goal increase strength of L knee to improve mobility 1* mat exercises x 20 reps 2* sit/stand transfer without use of UE PT Problem 5 PT Problem #5 Impaired Functional Mobil PT Goal 1 Goal 1* 5 reps sit/stand time of 18 seconds, without use of UE 2* 2 minute walking test distance of 350' 3* up/down 12 steps with one hand railing, indep 4* ambulate in home with cane
--- NOTE | 2023-05-26 16:04 | PTOPEVAL1 ---
Assessment and note entered by Supriya Sellers, PT Evaluation Information Assessment Status Evaluation Diagnosis s/pL TKR Onset 05-18-23 Subjective Information using wheeled walker to get around home; did not want C, start directly with out pt therapy; have CPM machine at home; HEP: ankle pumps, sitting knee flexion/extension; quad set, SLR; Activity: ambulate without device, active; indep with home and self care tasks, shopping; did heavy lifting; medical disability since 1993; Reported Pain Level Pain Score 5: Self Report Additional Pain Score Comments pain range in the past few days stays 5/10 ; decrease pain: take prescription med for sleeping; tramadol PRN for overall arthritis and pain; ice and elevation increase pain: standing/walking/home activity 15 min with sleeping- awaken with knee hurting--discussed sleeping position with pillow between knees Assessment PT Clinical Summary Lana is s/p L TKR. She has been doing the HEP from the hospital and using the wheeled walker. Self assessment with LE functional scale of 81% limitation. Prior to surgery, she was active with light tasks and did not use an assistive device. With the evaluation: L knee extension: active in sitting is (-20') and passive in supine (-12')/ flexion with stretch in sitting 95'; 2 minute walking test with wheeled walker is 265'; 5 rep sit/stand test with use of 1 UE time of 26 seconds decreased strength of L LE and edema over knee. Skilled PT services are indicated for modalities to decrease pain and swelling, therapeutic exercises to increase L knee ROM and strength, with education for progression of HEP and gait training with lesser assistive device. Plan of Care Interventions Electrical Stimulation,Gait Training,Hot Pack/Cold Pack,Intermittent Compression,Manual Therapy, Neuro Re-education,Patient/Caregiver Education, Therapeutic Activities,Therapeutic Exercise,Self- Care/Home Management,Ultrasound,Other Other Interventions katinaing, [facility] PT Services Indicated Ye
--- NOTE | 2023-06-17 08:24 | PCPTNOTE ---
Patient cancelled, ill.
--- NOTE | 2023-06-22 10:47 | PCPTNOTE ---
Pt canceled due to illness.
--- NOTE | 2023-06-24 09:59 | PCPTNOTE ---
pt called and canceled due to illness.
--- NOTE | 2023-06-30 10:44 | PTOPDC ---
Assessment and note entered by Supriya Sellers, PT Discharge Information Assessment Status Discharge Diagnosis s/p L TKR Onset 05-18-23 Subjective Information am doing well, am back to doing everything that she usually does; no problems walking or on the stairs, going places and doing more; doing the exercises at home, feel like ready to be done with therapy; Reported Pain Level Pain Score Self Report Additional Pain Score Comments in the past week 0-3/10- tight in knee, not really painful using ice PRN, take tramadol for over all body pain; activity/standing tolerance with walking 30 minutes Assessment PT Clinical Summary Lana has received 8 PT sessions. Compared to initial evaluation: pain has decreased; increase L knee ROM, strength and gait skills. She has returned to all of her usual activities and is walking without an assistive device. L knee active ROM in sitting is (-8') to 110'. Supine knee extension stretch to (-3'). All of the goals were achieved, except knee extension is (-8') active in sitting; Discharge PT services. She is to continue with her home exercise program. Plan of Care PT Services Indicated No
== END 2023-06-30 11:27 | disposition home or self-care (01) ==
LOC: ANHPT 10:00
PROVIDERS: PCP Nurse Practitioner Family; Visit Provider Orthopaedic Surgery
DX: Z47.1 Aftercare following joint replacement surgery (principal); Z96.652 Presence of left artificial knee joint
CPT/HCPCS: 97110; 97116; 97140; 97161; 97530

== ENCOUNTER 2023-10-27 13:52 | Outpatient (CLI) | payer MEDICARE, MEDICAID, SELFPAY ==
--- NOTE | ~2023-10-27 | CT_ITS ---
EXAMINATION: CT sinus wo con DATE: 10/27/2023 14:04 INDICATION: Recurrent maxillary sinusitis. Chronic ethmoidal sinusitis. TECHNIQUE: Computed tomography (CT) of the paranasal sinuses was performed without intravenous contra st. Iterative reconstruction technique was employed. The dose-length product was 370.23 mGy-cm. COMPARISON: CT sinuses 08/13/2013 FINDINGS: The frontal sinuses are clear. There is mild mucosal thickening in the bilateral ethmoid si nuses and right maxillary sinus. There is dependent fluid in right maxillary sinus. Left maxillary si nus and sphenoid sinus are clear. There is a right-sided Lou cell. The left ethmoid bulla is large . The ostiomeatal units are patent. There is rightward deviation of the nasal septum. IMPRESSION: 1. Mucosal thickening in the paranasal sinuses and dependent fluid in right maxillary sinus. 2. Rightward deviation of the nasal septum. Reviewed, dictated and finalized at location A. IMPRESSION: 1. Mucosal thickening in the paranasal sinuses and dependent fluid in right max illary sinus. 2. Rightward deviation of the nasal septum.
== END 2023-10-27 13:53 | disposition home or self-care (01) ==
LOC: ANHIMG 13:53
PROVIDERS: PCP Nurse Practitioner Family; Visit Provider Otolaryngology
DX: J32.2 Chronic ethmoidal sinusitis (principal); J01.01 Acute recurrent maxillary sinusitis; G89.29 Other chronic pain; J34.2 Deviated nasal septum
CPT/HCPCS: 70486

== ENCOUNTER 2023-12-27 12:17 | Emergency (ER) | payer MEDICARE, MEDICAID, SELFPAY ==
[2023-12-27 12:32] VITALS: BP 175/102; PULSE 101; RESP 20; TEMP 36.7; O2SAT 99
--- NOTE | 2023-12-27 14:23 | ED.EYEPROB ---
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 She reports she was watching TV and felt something in her R eye, which she rubbed with her shirt. Patient reports her eye started getting tighter so she went to the bathroom and reports she noticed internal bleeding on the low right outer portion of her eye. She denies any vision changes. Patient does endorse pressure at 1st but that has since relieved. She reports she has a cataract in her left eye. Patient reports she has a history of glaucoma. She denies any other signs/symptoms of illness, increased cranial pressure, or numbness and tingling. Related Data Home Medications Medication Instructions Recorded Confirmed ascorbic acid (vitamin C) 1,000 mg 1 gm PO DAILY 04/26/19 12/01/23 tablet celecoxib 200 mg capsule 200 mg PO BID 04/26/19 12/01/23 cholecalciferol (vitamin D3) 25 1,000 unit PO DAILY 04/26/19 12/01/23 mcg (1,000 unit) capsule ferrous sulfate 325 mg (65 mg 325 mg PO DAILY 04/26/19 12/01/23 iron) tablet (Feosol) folic acid 1 mg tablet 1 mg PO DAILY 04/26/19 12/01/23 lactobacillus combination no.8 3 3,000 mmu cells PO DAILY 04/26/19 12/01/23 billion cell capsule (Adult Probiotic) multivitamin 1 tablet PO DAILY 04/26/19 12/01/23 magnesium 250 mg tablet 250 mg PO DAILY 03/04/20 12/01/23 zinc 50 mg tablet 50 mg PO DAILY 03/04/20 12/01/23 methotrexate sodium 2.5 mg tablet 2.5 mg PO .COMPLEX 01/21/21 12/01/23 esomeprazole magnesium 40 mg 40 mg PO DAILY 02/03/22 12/01/23 capsule,delayed release (Nexium) melatonin 10 mg capsule 10 mg PO DAILY PRN Insomnia 08/26/22 12/01/23 tramadol 50 mg tablet 50 mg PO Q6H PRN Pain 01/27/23 12/01/23 abatacept 125 mg/mL subcutaneous 125 mg subcut WEEKLY 05/04/23 12/01/23 auto-injector (Orencia ClickJect) calcium 600 mg (as 1 tablet PO DAILY 05/04/23 12/01/23 carbonate)-vitamin D3 10 mcg (400 unit) tablet (Calcium 600 + D(3)) hydroxychloroquine 200 mg tablet 200 mg PO DAILY 05/04/23 12/01/23 sucralfate 1 gram tablet 1 g PO BID 05/04/23 12/01/23 fexofenadine 60 mg tablet (Glendy 60 mg PO Q12H 09/05/23 12/01/23 Allergy) Allergies Allergy/AdvReac Type Severity Reaction Status Date / Time adalimumab Allergy Mild Itching Verified 12/27/23 12:36 codeine AdvReac Mild Itching Verified 12/27/23 12:36 Review of Systems Review of Systems: All systems reviewed & are unremarkable except as noted in HPI and below PMFSH Past Medical History Medical History Anemia Chronic right shoulder pain Crohn's disease Gastroesophageal reflux disease Glaucoma Immunosuppressed status Iron deficiency anemia Left knee DJD Left shoulder pain Mixed hyperlipidemia Osteoarthritis Osteoporosis PONV (postoperative nausea and vomiting) Psoriatic arthritis Rheumatoid arthritis RLS (restless legs syndrome) Surgical History Surgical History History of section History of temporal artery biopsy In October 2016. No pathologic abnormalities noted. S/P total knee arthroplasty LT TKA 05/18/23 Status post ankle fusion With subsequent hardware removal and redo. Status post bilateral total hip replacement Status post cholecystectomy Status post rotator cuff repair Bilateral. Status post total right knee replacement Family History Family History Mother Family history of osteoporosis Cerebrovascular accident Family history of Alzheimer's disease Family history of coronary artery disease Acute myocardial infarction Family history of malignant melanoma Family history of malignant neoplasm of ovary Heart disease Father
[2023-12-27] MEDS: TETRACAINE HCL 0.5% OPHTH SOLN 4 ML BTL 1 DROP RIGHT EYE (14:56)
[2023-12-27 16:08] VITALS: BP 150/98; PULSE 84; RESP 16; TEMP 36.7; O2SAT 100
== END 2023-12-27 16:27 | disposition home or self-care (01) ==
PROVIDERS: Emergency Provider Registered Nurse; PCP Nurse Practitioner Family
DX: H21.01 Hyphema, right eye (principal); D64.9 Anemia, unspecified; K21.9 Gastro-esophageal reflux disease without esophagitis; M19.90 Unspecified osteoarthritis, unspecified site; G25.81 Restless legs syndrome; K50.90 Crohn's disease, unspecified, without complications
CPT/HCPCS: 99283

== ENCOUNTER 2024-07-09 15:12 | Outpatient (CLI) | payer MEDICARE, MEDICAID, SELFPAY ==
--- NOTE | ~2024-07-09 | CT_ITS ---
EXAMINATION: CT hip LT wo con DATE: 07/09/2024 15:31 INDICATION: Left hip pain TECHNIQUE: High resolution computed tomography (CT) of the left hip was performed without intravenous contrast. Additional sagittal and coronal reconstructions were performed. Automated exposure control and iterative reconstruction technique were employed. The dose-length product was 143.42 mGy-cm. COMPARISON: Left total hip arthroplasty in near anatomic alignment. The acetabular component is fixed with a sing le screw with no abnormal periprosthetic lucency. There is increased lucency with sclerotic margins i n the at the calcar surrounding the proximal one fourth of the femoral component on all sides. No temo ency along the more distal three fourths of the femoral stem. No evident subsidence or change in posi tion of the femoral component when comparing radiographs from 06/25/2024 and 05/05/2006. No fracture. M inimal osteoarthritis at the left sacroiliac joint. No left hip joint effusion. Diverticulosis along the visualized descending and sigmoid colon without adjacent inflammatory stranding to suggest divert iculitis. The uterus is not identified and has likely been surgically resected. No pathologically enl arged left pelvic or inguinal lymphadenopathy. FINDINGS: Left total hip arthroplasty with chronic appearing increased lucency surrounding the proximal one fou rth of the stem of the femoral component. No suggestion of loosening or other acute osseous abnormali ty. IMPRESSION: 1. Reviewed, dictated and finalized at location B. IMPRESSION: 1.
--- OUTSIDE RECORDS SUMMARY | 2024-07-09 17:22 | XMS_ITS | Clinical Summary ---
Author Organization [facility] Address [address] [place] [address] Care Team Providers Care Seo Expert Name Role Phone Genet Patel NP Primary Care Provider [phone] Allergies Active Allergy Reactions Criticality Noted Date Comments Codeine Medications ALPRAZolam (XANAX) 0.5 mg tablet 0 8 Active calcium carbonate/monik min D3 (CALCIUM+D ORAL) Active escitalopram (LEXAPRO) 20 mg tablet [address] (NexIUM) 40 mg capsule 8 Active polycarbophil (FIBERCON) 625 mg tablet Active ferrous gluconate 236 mg (27 mg iron) tablet Active L.acid-L.casei -B.bif-B.yvette-F OS 2 billion cell-50 mg capsule Active diclofenac sodium (VOLTAREN) 1 % gel Active cholecalcifero l (VITAMIN D-3) 1,000 unit capsule Active ascorbic acid (VITAMIN C) 500 mg tablet,chewabl e Active cyanocobalamin (Vitamin B-12) 100 mcg tabletIndicati ons:Prevention of Vitamin B12 Deficiency Active traMADol (ULTRAM) 50 mg tablet 2 8 Active sucralfate (CARAFATE) 1 gram tablet 8 Active predniSONE (DELTASONE) 5 mg tablet 8 Active folic acid (FOLVITE) 1 mg tablet Take 1 tablet (1,000 mcg total) by mouth daily 2 Active hydrOXYchloroQ UINE (PLAQUENIL) 200 mg tablet daily Active methotrexate 2.5 mg tablet 6 tabs 9 Active multivit-iron- OV-uiencfm-vvy s (One-A-Day Womens Formula) 18 mg iron-400 mcg-500 mg Ca tablet daily Active magnesium oxide (MAG-OX) 250 mg (150.8 mg elemental) tabletIndicati ons:hypomagnes emia 1 tablet (250 mg total) daily Active zinc gluconate 50 mg tablet Take 1 tablet (50 mg total) by mouth daily Active clobetasoL 0.025 % cream Clobetasol (Eqv-Temovate E) Active Orencia ClickJect 125 mg/mL auto-injector INJECT 125 MG (1 ML) SUBCUTANEOUSLY ONCE A WEEK FOR 28 DAYS for 28 Active fluticasone propionate (FLONASE) 50 mcg/actuation nasal spray USE 1 SPRAY(S) IN EACH NOSTRIL TWICE DAILY 4 Active methylPREDNISo lone (MEDROL DOSEPACK) 4 mg Dosepack TAKE BY MOUTH DIRECTED ON INSIDE OF PACKAGE 4 Active celecoxib (CeleBREX) 200 mg capsule Take 1 capsule (200 mg total) by mouth 2 (two) times a day 4 Active Active Problems Problem Noted Date Diagnosed Date Osteoporosis 12/25/2013 Surgical History Surgery Date Site/Laterality Comments BREAST BIOPSY Left Social History Tobacco Use Types Packs/Day Years Used Date Smoking Tobacco: Never Tobacco Cessation:Counseling Given: Not Answered Personal Safety Answer Date Recorded Getting School Help Needed Not on file 04/30 Comments No Sex and Gender Information Value Date Recorded Sex Assigned at Not on file 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 Gender Identity Not on file Sexual Orientation Not on file Obstetrics History Para Term AB IAB SAB Ectopic Multiple Livin g Live Births 1 1 1 Date Outcome GA Total Labor Labor/2nd/3rd Weight Sex Type Anes PTL Mouna A1 A5 Name Clin Term Last Filed Vital Signs Vital Sign Reading Time Taken Comments Blood Pressure 121/79 03/30/2016 2:29 PM PULP OPERATOR Pulse 99 03/30/2016 2:29 PM PULP OPERATOR Temperature - - Respiratory Rate - - Oxygen Saturation - - Inhaled Oxygen Concentration - - Weight 47.6 kg (105 lb) 06/13/2023 12:30 PM CDT Height 149.9 cm (4' 11 ) 06/13/2023 12:30 PM CDT Body Mass Index 21.21 06/13/2023 12:30 PM CDT Plan of Treatment Health Maintenance Due Date Last Done Comments Colon Cancer Screening-Colonoscopy 1955 Depression Screening 1955 Fall Risk Assessment 1955 Hepatitis C Screening 1955 DTaP/Tdap/Td Vaccine (1 - Tdap) 1968 Hepatitis B Screening 11/28/1975 Zoster Vaccine (1 of 2) 1976 Pneumococcal vaccine 65+ (2 of 2 - PPSV23) 03/23/2017 01/26/2017 Covid-19 Vaccine (2 - Modern a risk series) 01/09/2021 12/12/2020 Breast Cancer Screening-Mammogram 10/13/2022 10/13/2021, 10/13/2021, 11/13/2019, Additional history exists Well Visit 65+ 2022 Osteoporosis Screening-Bone Density Scan 09/07/2024 09/07/2022, 06/24/2021, 03/30/2016, Additional history exists Influenza Vaccine (Season Ended) 2024 01/26/2017, 12/04/2015, 11/22/2013, Additional history exists Procedures Procedure Name Priority Date/Time Associated Diagnosis Comments DEXA TBS AXIAL SKELETON BONE DENSITY 1 OR MORE SITES Schedule Routine, Read Routine (OP Routine) 09/07/2022 10:24 AM CDT Age-related osteoporosis without current pathological fracture SCREENING MAMMOGRAM BILATERAL W GIGI Schedule Routine, Read Routine (OP Routine) 10/13/2021 3:47 PM CDT Encounter for screening mammogram for malignant neoplasm of breast from Last 3 Months or Most Recently Relevant to Health Maintenance Results * Dexa TBS Axial Skeleton Bone Density 1 or more sites (09/07/2022 10:24 AM CDT) Anatomical Region Laterality Modality Wrist, Body N/A Radiographic Salud ging Narrative 09/07/2022 10:26 AM CDT Patient Name: Sarah Ferguson Date of : 1955 Date of scan: 09/07/2022 Bone mineral density was performed on a Hologic Discovery Densitometer. Based on machine cross-calibration and precision studies the least significant changes of this densitometer is 0.024 g/cm2 at the spine, 0.020 g/cm2 at the total proximal femur, and 0.014g/cm2 at the forearm. HISTORY: This is a 66 y.o. postmenopausal female with a history of Crohn's disease, low bone mass, rheumatoid arthritis, and ulcerative colitis. She reports that she has never smoked. She does not have any smokeless tobacco history on file. Currently on treatment with calcium, vitamin D, and zoledronic acid (Reclast), previously treated with alendronate (Fosamax), teriparatide (Forteo), and glucocorticoids, and current complaint of back pain and neck pain. INDICATIONS: Menopause status, treatment monitoring, history of glucocorticoids use, and history of low bone mass. FINDINGS: BONE MINERAL DENSITY OF THE FOREARM Bone Mineral density (BMD) of the left proximal 1/3 of the radius measures 0.631 gm/cm2. This corresponds to a T-score (standard deviations from the mean of young adults) of -1.1. When compared to the previous study of 06/24/2021 there has been no significant changes in bone density. A forearm bone density study was performed instead of a proximal femur and spine study because of bilateral hip replacement and severe degenerative disease SUMMARY: Bone mineral density shows evidence of low bone mass at the forearm and moderately increased fracture risk (Osteopenia). There has been no significant changes in bone density since previous measurement. The lumbar spine Trabecular Bone Score TBS was not obtained due to the bone mineral density of the spine not being acquired. ADDITIONAL COMMENTS: Postmenopausal Women and Men Over 50: Diagnostic criteria: Osteoporosis: BMD at or below -2.5 T-score; Osteopenia (low bone mass): BMD between -1.0 and -2.5 T-score. If the patient has a history of a fragility fracture, a fracture that occurred with trauma equivalent to a fall from a standing position or less, then the diagnosis is osteoporosis regardless of bone density. The history and data sections of the bone mineral density scan were prepared by RT Ina who is accredited by the International Society of Clinical Densitometry. The overall patient assessment and scan interpretation were performed by Rima Murcia M.D. who is certified by the International Society of Clinical Densitometry. [id number] Rima Murcia MD IMG DXA PROCEDURES Final Re sult * Screening Mammogram Bilateral W Gigi (10/13/2021 3:47 PM CDT) Anatomical Region Laterality Modality Breast Bilateral Mammography Impressions 10/13/2021 4:08 PM CDT BI-RADS ATLAS category (overall): 1 - Negative There is no mammographic evidence of malignancy. A 1 year screening mammogram is recommended. The patient has been or will be contacted. We recommend annual screening mammography for women at average risk of breast cancer beginning at age 40, based on guidelines of the [place] [employer] (ACR Practice Parameter for the Performance of Screening and Diagnostic Mammography) and [place] [employer]. For women with and elevated risk of breast cancer, please refer to the ACR Practice Parameter for specific screening recommendations. The patient will be entered into a reminder system with a target due date of 1 year for her next screening exam. Narrative 10/13/2021 4:08 PM CDT Screening Mammogram Bilateral W Gigi: 10/13/21 The study was acquired using full field digital technology and interpreted from soft copy. 2D digital mammographic views, as well as 3D digital tomosynthesis were performed in the CC and MLO projections. CLINICAL: Encounter for screening mammogram for malignant neoplasm of breast. No relevant medical history has been documented for this patient. No known family history of breast cancer. COMPARISONS: 03/17/2020 Diagnostic Mammogram 2D Left 2019 US Breast Left Limited 2019 Diagnostic Mammogram Left W Gigi 11/13/2019 Screening Mammogram Bilateral W Gigi 10/07/2017 Screening Mammogram Bilateral W Gigi BREAST TISSUE: The breasts have scattered areas of fibroglandular density. FINDINGS: There is a biopsy clip in the left breast. No suspicious masses, suspicious calcifications, or other suspicious findings are seen within either breast. There has been no suspicious change. Ricky Ballesteros MD IMG MAMMO PROCEDURES Final Resul t from Last 3 Months or Most Recently Relevant to Health Maintenance Insurance [facility] MEDICARE RAILROAD MEDICARE RAILROAD [facility] MEDICARE RAILROAD IDMN Care Teams Seo Expert Relationship Specialty Start Date End Date Genet Patel NP [address] [place] [address] PCP - General Nurse Practitioner 06/06/24
--- OUTSIDE RECORDS SUMMARY | 2024-07-09 17:22 | XMS_ITS | Referral Summary ---
Author Organization [facility] Address [address] [place] [address] Care Team Providers Care Tag Clerk Name Role Phone Genet Patel NP Primary Care Provider [phone] Allergies Active Allergy Reactions Criticality Noted Date [...] mg tablet 6 tabs 9 Active multivit-iron- HR-bbgynxc-bsd s (One-A-Day Womens Formula) 18 mg iron-400 [...] Problem Noted Date Diagnosed Date Osteoporosis 12/25/2013 Social History Tobacco Use Types Packs/Day Years Used Date Smoking Tobacco: Never Tobacco Cessation:Counseling Given: Not Answered Personal Safety Answer Date Recorded Getting School Help Needed Not on file 04/30 Comments No Sex and Gender Information Value Date Recorded Sex Assigned at Not on file Legal Sex Female 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 Gender Identity Not on file Sexual Orientation Not on file Last Filed Vital Signs Vital Sign Reading Time Taken Comments Blood Pressure 121/79 03/30/2016 2:29 PM DRILLER AND REAMER Pulse 99 03/30/2016 2:29 PM DRILLER AND REAMER Temperature - - Respiratory Rate - - Oxygen Saturation - - Inhaled Oxygen Concentration - - Weight 47.6 kg (105 lb) 06/13/2023 12:30 PM CDT Height 149.9 cm (4' 11 ) 06/13/2023 12:30 PM CDT Body Mass Index 21.21 06/13/2023 12:30 PM CDT Plan of Treatment Not on file Procedures Procedure Name Priority Date/Time Associated Diagnosis [...] 09/07/2022 10:26 AM CDT Patient Name: Sarah Garcia Date of : 1955 Date of scan: 09/07/2022 Bone mineral density was performed on a HoloAchieve X Discovery Densitometer. Based on machine cross-calibration and [...] by the International Society of Clinical Densitometry. [id number] us Rima Murcia MD IMG DXA PROCEDURES Final [...] age 42, based on guidelines of the [employer] (ACR Practice Parameter for the Performance of Screening and Diagnostic Mammography) and [employer]. For women [...] been no suspicious change. Ricky Ballesteros MD [facility]ilee MAMMO PROCEDURES Final Resul t from Last 3 Months or Most Recently Relevant to Health Maintenance Insurance [employer] MEDICARE RAILROAD MEDICARE RAILROAD [employer] MEDICARE RAILROAD IDPA Care Teams Tag Clerk Relationship Specialty Start Date End Date WinterGenet NP [address] [place] [address] PCP - General Nurse Practitioner 06/06/24
--- OUTSIDE RECORDS SUMMARY | 2024-07-09 17:22 | XMS_ITS | Clinical Summary ---
Author Organization [facility] Address [address] [place] [address] Care Team Providers Care Call Center Dispatcher Name Role Phone Ricky Ballesteros MD Primary Care Provider [phone] Source Comments [facility],non-owned Affiliates and Associated Physician Practices is amultiple site organization consisting of ambulatory clinics and hospital sitesin [place] and [place]. This disclosure is being madepursuant to the Care Everywhere program and may not contain all information available regarding this patient. Last updated [employer] Allergies No known active allergies Medications * Be aware that medications may not be up to date on this document. Alwaysverify current medications with the patient. estradiol (JEREMIE) 0.1 MG/24HR patch 11/08/2013 A ctive ALPRAZolam (XANAX) 0.5 MG tablet 11/13/2013 Activ e atorvastatin (LIPITOR) 20 MG tablet 11/29/2013 Active carbidopa-levodopa (SINEMET) 25-100 MG tablet 12/03/2013 Active celecoxib (CELEBREX) 200 MG capsule 12/03/2013 Active clonazePAM (KLONOPIN) 0.5 MG tablet 12/10/2013 Active fluticasone propionate (FLONASE) 50 MCG/ACT nasal spray 12/11/2013 Active esomeprazole (NEXIUM) 40 MG capsule 12/03/2013 Active sucralfate (CARAFATE) 1 GM tablet 11/14/2013 Active traMADol (ULTRAM) 50 MG tablet 11/30/2013 Active diclofenac sodium (VOLTAREN) 1 % gel 09/13/2013 Active dicyclomine (BENTYL) 20 MG tablet 07/19/2018 Active folic acid (FOLVITE) 1 MG tablet 5 05/29/2018 Active methotrexate (RHEUMATREX) 2.5 MG tablet 07/10/2018 Active progesterone micronized (PROMETRIUM) 200 MG capsule 05/19/2018 Active ENBREL SURECLICK 50 MG/ML auto-injector pen 04/10/2018 A ctive Active Problems No known active problems Social History Tobacco Use Types Packs/Day Years Used Date Smoking Tobacco: Never Smokeless Tobacco: Never Alcohol Use Standard Drinks/Week Comments No 0 (1 standard drink = 0.6 oz pur e alcohol) Comments Unknown Sex and Gender Information Value Date Recorded Sex Assigned at Not on file 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 Gender Identity Not on file Sexual Orientation Not on file Last Filed Vital Signs Vital Sign Reading Time Taken Comments Blood Pressure - - Pulse - - Temperature - - Respiratory Rate - - Oxygen Saturation - - Inhaled Oxygen Concentration - - Weight 48.5 kg (107 lb) 07/24/2018 9:45 AM CDT Height 152.4 cm (5') 07/24/2018 9:45 AM CDT Body Mass Index 20.9 07/24/2018 9:45 AM CDT Plan of Treatment Health Maintenance Due Date Last Done Comments BONE DENSITY TESTING 1955 COLOGUARD (AGES 45-75) - COL ON CA SCREENING 1955 COLON MONITORING 1957 COLONOSCOPY - COLON CA SCREENING 1957 CT COLONOGRAPHY - COLON CA SCREENING 1955 Colorectal Cancer Screening 1955 FIT - COLON CA SCREENING 1957 FLEX SIG - COLON CA SCREENING 1955 MAMMOGRAM 1955 HEPATITIS C SCREENING 11/23/1975 DTAP/TDAP/TD VACCINES (1 - Tdap) 1976 PNEUMOCOCCAL VACCINE 50+ (1 of 1 - PCV) 11/28/2007 ZOSTER VACCINE (1 of 2) 11/28/2007 COVID-19 VACCINE ( - 2023-2 5 season) 2023 DEPRESSION SCREENING 03/14/2024 INFLUENZA VACCINE (Season Ended) 2024 Respiratory Syncytial Virus (RSV) Vaccine Pt: or over 60 yrs (1 - 1-dose 75+ series) 2032 HEPATITIS B VACCINE Aged Out No longe r eligible based on patient's age to complete this topic HIB VACCINE Aged Out No longer eligi ble based on patient's age to complete this topic HPV VACCINE Aged Out No longer eligi ble based on patient's age to complete this topic MENINGOCOCCAL (Group B) VACC INE SHARED DECISION-MAKING Aged Out No longer eligibl e based on patient's age to complete this topic MENINGOCOCCAL GROUPS A/C/Y/W VACCINE Aged Out No longer eligible b ased on patient's age to complete this topic Insurance MEDICARE MEDICAID - [place] Care Teams Call Center Dispatcher Relationship Specialty Start Date End Date Ricky Ballesteros MD [address] [place] [address] PCP - General Internal Medicine 07/24/18
--- OUTSIDE RECORDS SUMMARY | 2024-07-09 17:22 | XMS_ITS | Clinical Summary ---
Author Organization [facility] Address [address] [place] [address] Care Team Providers Care Precision Filer Hand Name Role Phone Maximiliano Jolley MD Primary Care Provider [phone] Social History Tobacco Use Types Packs/Day Years Used Date Smoking Tobacco: Never Assessed Comments Unknown Sex and Gender Information Value Date Recorded Sex Assigned at Not on file Legal Sex Female 8:12 PM CDT Gender Identity Not on file Sexual Orientation Not on file Plan of Treatment Health Maintenance Due Date Last Done Comments Colorectal Cancer Screening Colonoscopy (10 Years) 1955 Hepatitis C 11/28/1975 DTaP, Tdap and Td Vaccines ( 1 - Tdap) 1976 Mammogram Screening 1997 Pneumococcal Vaccine: 50+ Ye ars (1 of 1 - PCV) 11/28/2007 Zoster Vaccines (1 of 2) 11/28/2007 Dexa Scan (General) 2022 COVID-19 Vaccine ( - 2023-2 5 season) 2023 RSV Immunization or 60+ Years (1 - 1-dose 75+ series) 2032 Meningococcal B Vaccine Aged Out No l onger eligible based on patient's age to complete this topic Meningococcal Vaccine Aged Out No yvette [place] eligible based on patient's age to complete this topic RSV Immunizations Under 20 Months Aged Out No longer eligible based on patient's age to complete this topic Care Teams Precision Filer Hand Relationship Specialty Start Date End Date Maximiliano Jolley MD PCP - General 10/09/14
--- OUTSIDE RECORDS SUMMARY | 2024-07-09 17:22 | XMS_ITS | Clinical Summary ---
Author Organization [facility] Address [address] [place] [address] Phone Care Team Providers Care Game Designer/Creative Director Name Role Phone Ricky Ballesteros MD Primary Care Provider [phone] Allergies Active Allergy Reactions Criticality Noted Date Comments Codeine Rash Low 12/17/2013 Medications ALPRAZolam (XANAX) 0.5 mg tablet 4 Active carbidopa-levod opa (SINEMET) 25-100 mg tablet 4 Active CELEBREX 200 mg capsule 4 Active VOLTAREN 1 % gel 4 Active NEXIUM 40 mg Capsule, Delayed Release(E.C.) 4 Active venlafaxine 225 mg Extended Release 24 hour tablet 4 Active traMADol (ULTRAM) 50 mg tablet 4 Active sucralfate (CARAFATE) 1 gram tablet 4 Active ascorbic acid (VITAMIN C) 500 mg Tablet, Chewable Active polycarbophil calcium (FIBERCON) 625 mg tablet Active cholecalciferol , Vitamin D3, (VITAMIN D3) 25 mcg (1,000 unit) Capsule Active cyanocobalamin (VITAMIN B-12) 100 mcg tablet Activ e ferrous gluconate 236 mg (27 mg iron) Tablet Active folic acid (FOLVITE) 1 mg tablet 9 Active L.acid-L.casei- B.bif-B.yvette-FOS 2 billion cell-50 mg Capsule Active Magnesium 250 mg Tablet Active methotrexate (RHEUMATREX) 2.5 mg Tablet 9 Active multivitamin (DAILY-CRISTIAN) tablet Active escitalopram oxalate (LEXAPRO) 20 mg tablet Take 20 mg by mouth daily. Active Premarin 0.625 mg/gram vaginal cream APPLY 0.5 G TOPICALLY ONCE DAILY 2 Active hydrOXYchloroQU INE (PLAQUENIL) 200 mg tablet Take 200 mg by mouth daily. 2 Active magnesium oxide 250 mg magnesium Tablet 250 mg daily. Active melatonin 10 mg Tablet Active jdefjrsf-qcrs-J R-kfoopng-ratu (One-A-Day Womens Formula) 18 mg iron-400 mcg-500 mg Ca Tablet every 24 hours. Active predniSONE (DELTASONE) 5 mg tablet TAKE 6 TABLETS BY MOUTH FOR 2 DAYS, THEN DECREASE BY 1 TABLET EVERY 2 DAYS UNTIL GONE, TAKE EVERY DAY FOR 12 DAYS 2 Active Xeljanz XR 11 mg Tablet Sustained Release 24HR 2 Active zinc gluconate 50 mg Tablet Take 50 mg by mouth daily. Active Active Problems Problem Noted Date Diagnosed Date Chronic anemia 02/25/2021 Arthritis of hand 12/17/2013 Family History Medical History Relation Name Comments Lung Cancer Brother 1 Lung Cancer Father Uterine Cancer Mother Lung Cancer Sister Relation Name Status Comments Brother 1 Alive Brother 2 Alive Father Mother Sister Alive Son Alive Social History Tobacco Use Types Packs/Day Years Used Date Smoking Tobacco: Never Smokeless Tobacco: Never Tobacco Cessation:Counseling Given: Not Answered Alcohol Use Standard Drinks/Week Comments Never 0 (1 standard drink = 0.6 oz pur e alcohol) Comments Unknown Sex and Gender Information Value Date Recorded Sex Assigned at Not on file Legal Sex Female 9:39 AM CDT Gender Identity Not on file Sexual Orientation Not on file Last Filed Vital Signs Vital Sign Reading Time Taken Comments Blood Pressure 123/77 10/27/2022 10:56 AM CDT Pulse 102 10/27/2022 10:56 AM CDT Temperature 36 C (96.8 F) 10/27/2022 10:56 AM CDT Respiratory Rate 10 10/27/2022 10:56 AM CDT Oxygen Saturation 98% 10/27/2022 10:56 AM CDT Inhaled Oxygen Concentration - - Weight 45.8 kg (101 lb) 10/27/2022 10:56 AM CDT Height 147.3 cm (4' 10 ) 10/27/2022 10:56 AM CDT Body Mass Index 21.11 10/27/2022 10:56 AM CDT Plan of Treatment Health Maintenance Due Date Last Done Comments DTAP/TDAP/TD VACCINES (1 - Tdap) 1976 PNEUMOCOCCAL VACCINE 50+ YEA RS (1 of 2 - PCV) 1976 ZOSTER VACCINE (1 of 2) 1976 FIT-DNA Q 3 years 2002 FIT/FOBT Q 1 year 2002 Flex Sig/CT Colonography Q 5 years 2002 RSV VACCINE (60+ or ) (1 - Risk 60-74 years 1-dose series) 2017 BREAST CANCER SCREENING 10/13/2022 10/14/19 22, 10/13/2021, 10/13/2021, Additional history exists INFLUENZA VACCINE (#1) 2023 COLORECTAL SCREENING 04/07/2025 04/07/2015 Colorectal Cancer Screening 04/07/2025 OSTEOPOROSIS SCREENING 09/08/2027 3, 09/07/2022, 09/07/2022, Additional history exists Insurance MEDICARE RAILROAD MEDICAID [place] MEDICARE RAILROAD Care Teams Game Designer/Creative Director Relationship Specialty Start Date End Date Ricky Ballesteros MD [address] [place] [id number] PCP - General Internal Medicine 02/25/21
== END 2024-07-09 15:13 | disposition home or self-care (01) ==
PROVIDERS: PCP Nurse Practitioner Family; Visit Provider Orthopaedic Surgery
DX: M25.552 Pain in left hip (principal); G89.29 Other chronic pain; Z96.642 Presence of left artificial hip joint
CPT/HCPCS: 73700

== ENCOUNTER 2024-08-07 11:35 | Emergency (ER) | payer MEDICARE, MEDICAID, SELFPAY ==
--- NOTE | 2024-08-07 11:54 | ED.SKABFB ---
HPI - Skin/Abscess/Foreign Bdy General Chief complaint: Skin/Abscess/Foreign Body Stated complaint: RASH Source: patient Mode of arrival: ambulatory Limitations: no limitations History of Present Illness HPI narrative: 68 y/o female with hx rheumatoid arthritis psoriatic arthritis, presented for c/o wound to the left buttock and right labia. Endorses pain and yellow/green drainage to the wounds. Says symptoms started as a small round lesion to the buttock, for which she was seen by pcp. This was initially treated as shingles, but states she did not receive oral medication. She says the site continued to worsen and spread, and was then given fungal ointment and antibiotic ointments without improvement. Says she sends daily pictures to pcp. Pt was seen by ortho for the hip pain as well. Related Data Home Medications ?Medication ?Instructions ?Recorded ?Confirmed ?Last Taken ?Type ascorbic acid (vitamin C) 1,000 mg 1 gm PO DAILY 04/26/19 07/30/24 12/14/20 History tablet celecoxib 200 mg capsule 200 mg PO BID 04/26/19 07/30/24 12/14/20 History cholecalciferol (vitamin D3) 25 1,000 unit PO DAILY 04/26/19 07/30/24 12/14/20 History mcg (1,000 unit) capsule ferrous sulfate 325 mg (65 mg 325 mg PO DAILY 04/26/19 07/30/24 12/14/20 History iron) tablet (Feosol) folic acid 1 mg tablet 1 mg PO DAILY 04/26/19 07/30/24 12/14/20 History lactobacillus combination no.8 3 3,000 mmu cells PO DAILY 04/26/19 07/30/24 12/14/20 History billion cell capsule (Adult Probiotic) multivitamin 1 tablet PO DAILY 04/26/19 07/30/24 12/14/20 History magnesium 250 mg tablet 250 mg PO DAILY 03/04/20 07/30/24 12/14/20 History zinc 50 mg tablet 50 mg PO DAILY 03/04/20 07/30/24 12/14/20 History methotrexate sodium 2.5 mg tablet 2.5 mg PO .COMPLEX 01/21/21 07/30/24 Unknown History esomeprazole magnesium 40 mg 40 mg PO DAILY 02/03/22 07/30/24 Unknown History capsule,delayed release (Nexium) melatonin 10 mg capsule 10 mg PO DAILY PRN Insomnia 08/26/22 07/30/24 Unknown History tramadol 50 mg tablet 50 mg PO Q6H PRN Pain 01/27/23 07/30/24 Unknown History calcium 600 mg (as 1 tablet PO DAILY 05/04/23 07/30/24 Unknown History carbonate)-vitamin D3 10 mcg (400 unit) tablet (Calcium 600 + D(3)) hydroxychloroquine 200 mg tablet 200 mg PO DAILY 05/04/23 07/30/24 Unknown History sucralfate 1 gram tablet 1 g PO BID 05/04/23 07/30/24 Unknown History fexofenadine 60 mg tablet (Glendy 60 mg PO Q12H 09/05/23 07/30/24 Unknown History Allergy) upadacitinib 15 mg tablet,extended 15 mg PO DAILY 05/29/24 07/30/24 Unknown History release 24 hr (Rinvoq) Allergies Allergy/AdvReac Type Severity Reaction Status Date / Time adalimumab Allergy Mild Itching Verified 08/07/24 11:55 codeine AdvReac Mild Itching Verified 08/07/24 11:55 Review of Systems Review of Systems: CONSTITUTIONAL: Denies body aches, fever, chills, or sweats. EYES: Denies visual changes, redness, or discharge. ENT: Denies rhinorrhea, congestion CARDIOVASCULAR: Denies chest pain, palpitations, or edema. RESPIRATORY: Denies cough or dyspnea. GASTROINTESTINAL: Denies abdominal pain, nausea, vomiting, or diarrhea. SKIN: per HPI MUSCULOSKELETAL: Denies back pain, joint pain, or myalgia. NEUROLOGIC: Denies headache, numbness, tingling, or weakness. [facility] Past Medical History Medical History PONV (postoperative nausea and vomiting) Left knee DJD Chronic right shoulder pain Left shoulder pain Anemia Immunosuppressed status Osteoarthritis Glaucoma Iron deficiency anemia Crohn's disease Gastroesophageal reflux disease Mixed hyperlipidemia Osteoporosis Psoriatic arthritis RLS (restless legs syndrome) Rheumatoid arthritis Surgical History Surgical History S/P total knee arthroplasty LT TKA 05/18/23 Status post bilateral total hip replacement Status post ankle fusion With subsequent hardware removal and redo. Status post rotator cuff repair Bilateral. Status post cholecystectomy History of section Status post total right knee replacement History of temporal artery biopsy In October 2016. No pathologic abnormalities noted. Family History Family History Mother Family history of osteoporosis Cerebrovascular accident Family history of Alzheimer's disease Family history of coronary artery disease Acute myocardial infarction Family history of malignant melanoma Family history of malignant neoplasm of ovary Heart disease Father Family history of coronary artery disease Family history of heart disease in male family member before age 55 Family history of lung cancer, Onset Age: 48 Sibling Family history of lung cancer Family history of malignant melanoma Family history of malignant neoplasm of urinary bladder Heart disease Sibling Cancer Heart disease Other Family history of malignant neoplasm Hypertension Social History Social History Social History: The patient lives in [place] with her . They have 2 dogs that live at home, but her mainly outside. 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 She designates her , and her [id number] Debra, as her surrogate decision makers and she wishes to be a full code. She is a lifelong nonsmoker and denies alcohol and drug abuse. Smoking status: Never smoker Additional smoking assessment comments: DENIES ANY FORM OF TOBACCO USE Alcohol intake: never Substance use: never Substance use type: does not use Do You Feel Safe in your Home?: Yes Lack of Transportation: No Lack of Food: Never True Current Housing: I Have Housing Concerned About Future Housing: No Difficulty Paying Gas/Electric Bills: No Difficulty Paying for Meds: No Currently Unemployed: No Education: Trade/Vocational Certificate Difficulty w/ Childcare or Family Care: No Living arrangements: with family Occupation/Education: retired Gender identity (if verbalized by the patient): Female Sexual Orientation (if Verbalized by the Patient): Straight or Heterosexual Spiritual care concerns: No Agree to blood products: Yes Comments At time of signature, I have reviewed and agree with nursing past medical, surgical, social and family history unless otherwise noted. Please see nursing chart for further information. There is no relevant family history pertinent to the presenting complaint Exam Narrative: GENERAL: Well-appearing ENT: Mucous membranes moist. Oropharynx without edema, erythema or lesions. NECK: Supple. No lymphadenopathy CHEST: Clear to auscultation. HEART: Regular rate and rhythm. SKIN: Warm, dry. Right labia and Left buttock [id number] irregular reddened open wound, yellow/green drainage to wound bed, tender with palpation. Outer edges with scattered round flat lesions c/w ruptured pustules which also extend into the perineum. NEURO: Alert and oriented x3. Course Course Emergency Course: Patient is aware of diagnosis, understands and agrees to treatment plan. Anticipatory guidance given. Patient agrees to follow-up as directed and is aware of reasons to seek care at the emergency department. Portions of this record may have been created with voice recognition software Level of Care: Express Care Visit Vital Signs Vital signs: Vital Signs Temperature 97.9 F 08/07/24 11:56 Pulse Rate 130 H 08/07/24 11:56 Respiratory Rate 18 08/07/24 11:56 Blood Pressure 158/102 H 08/07/24 11:56 Pulse Oximetry 100 08/07/24 11:56 Oxygen Delivery Room Air 08/07/24 11:56 Temperature 97.9 F 08/07/24 11:56 Pulse Rate 100 08/07/24 12:05 Respiratory Rate 18 08/07/24 11:56 Blood Pressure 158/102 H 08/07/24 11:56 Pulse Oximetry 100 08/07/24 11:56 Oxygen Delivery Room Air 08/07/24 11:56 Reviewed MDM - Skin/Abscess/Foreign Bdy MDM Narrative Medical decision making narrative: Discussed physical exam findings, will send Rx abx, pt will f/u as scheduled with derm in 3 days. Advised supportive measures and signs/symptoms to go to the ER. Pt is appropriate for outpt treatment and f/u. Differential Diagnosis Differential diagnosis: Likely abscess of skin or subcutaneous tissue, viral exanthem, dermatophytosis, urticaria, herpes zoster, cellulitis, eczema, insect bites, impetigo, contact dermatitis and other (lichen sclerosus) Discharge Plan Discharge Clinical Impression: Dermatitis Patient Disposition: Home Condition: Stable Instructions: Antibiotic Form, Dermatitis (ED) Additional Instructions: Keep the area clean and dry - cleanse with warm water and mild soap and allow to fully dry. Avoid alcohol or hydrogen peroxide on the sites. Keep it covered, change the dressing daily with a non-stick gauze. Watch for worsening symptoms including pain, redness, swelling, streaking, pus/drainage, fever. Go to the ER with any of these symptoms or concerns. Follow up with sales service professional as scheduled this week. Patient Language: Belgian Prescriptions: New doxycycline hyclate 100 mg tablet 100 mg PO BID 10 Days Qty: 20 0RF No Action folic acid 1 mg tablet 1 mg PO DAILY celecoxib 200 mg capsule 200 mg PO BID multivitamin Tablet 1 tablet PO DAILY Adult Probiotic 3 billion cell capsule 3,000 mmu cells PO DAILY Rx Instructions: administer with a meal ferrous sulfate [Feosol] 325 mg (65 mg iron) tablet 325 mg PO DAILY ascorbic acid (vitamin C) 1,000 mg tablet 1 gm PO DAILY cholecalciferol (vitamin D3) 25 mcg (1,000 unit) capsule 1,000 unit PO DAILY zinc 50 mg tablet 50 mg PO DAILY magnesium 250 mg tablet 250 mg PO DAILY melatonin 10 mg capsule 10 mg PO DAILY PRN (Reason: Insomnia) methylprednisolone 4 mg tablets,dose pack See Rx Instructions PO PER PKG DIR Qty: 21 0RF Rx Instructions: PO PER PKG DIR methotrexate sodium 2.5 mg tablet 2.5 mg PO .COMPLEX Rx Instructions: 2.5 mg PO TAKE 6 TABLETS BY ORAL ROUTE once a EVERY WEEK ON TUESDAY; esomeprazole magnesium [Nexium] 40 mg capsule,delayed release(DR/EC) 40 mg PO DAILY fexofenadine [Glendy Allergy] 60 mg tablet 60 mg PO Q12H Mucinex DM 30-600 mg tablet extended release 12 hr See Rx Instructions PO Q12H PRN (Reason: cough) Qty: 30 0RF Rx Instructions: 1-2 tablets orally every 12 hours PRN; Rinvoq 15 mg tablet extended release 24 hr 15 mg PO DAILY escitalopram oxalate 20 mg tablet See Rx Instructions .ROUTE .COMPLEX Qty: 90 1RF Dose Instruction: Take 1 tablet by mouth once daily Rx Instructions: Take 1 tablet by mouth once daily prednisolone sodium phosphate 1 % drops 1 drp RIGHT EYE Q12H Qty: 10 0RF calcium carbonate-vitamin D3 [Calcium 600 + D(3)] 600 mg-10 mcg (400 unit) Tablet 1 tablet PO DAILY hydroxychloroquine 200 mg tablet 200 mg PO DAILY sucralfate 1 gram tablet 1 g PO BID tramadol 50 mg tablet 50 mg PO Q6H PRN (Reason: Pain) fluticasone propionate 50 mcg/actuation spray,suspension 1 spray intranasal PRN PRN (Reason: Allergy Symptoms) Qty: 16 5RF Rx Instructions: administer once spray into each nostril twice daily. methylprednisolone 4 mg tablets,dose pack See Rx Instructions PO PER PKG DIR Qty: 21 0RF Rx Instructions: PO PER PKG DIR valacyclovir 1 gram tablet 1,000 mg PO TID Qty: 21 0RF betamethasone valerate 0.1 % ointment 1 applic topical BID Qty: 15 0RF alprazolam 0.5 mg tablet 0.5 mg PO BID PRN (Reason: anxiety) Qty: 60 0RF clotrimazole [Antifungal (clotrimazole)] 1 % cream 1 applic topical Q12H Qty: 15 1RF Follow-up/Referrals: Genet Patel APRN [Primary Care Provider] -
[2024-08-07 11:56] VITALS: BP 158/102; PULSE 130; RESP 18; TEMP 36.6; O2SAT 100
[2024-08-07 12:05] VITALS: PULSE 100
[2024-08-07 12:20] VITALS: PULSE 100
== END 2024-08-07 12:15 | disposition home or self-care (01) ==
PROVIDERS: Emergency Provider Nurse Practitioner Family; PCP Nurse Practitioner Family
DX: L30.9 Dermatitis, unspecified (principal); K50.90 Crohn's disease, unspecified, without complications; K21.9 Gastro-esophageal reflux disease without esophagitis; E78.2 Mixed hyperlipidemia; L40.50 Arthropathic psoriasis, unspecified; G25.81 Restless legs syndrome; M06.9 Rheumatoid arthritis, unspecified; H40.9 Unspecified glaucoma; D50.9 Iron deficiency anemia, unspecified; M17.12 Unilateral primary osteoarthritis, left knee; Z96.643 Presence of artificial hip joint, bilateral; Z96.653 Presence of artificial knee joint, bilateral
CPT/HCPCS: 99213; G0463

== ENCOUNTER 2024-08-29 16:29 | Inpatient (IN) | payer MEDICARE, OTHER, MEDICAID, SELFPAY ==
[2024-08-29] VITALS (20 sets, daily range): BP systolic 79–180; BP diastolic 56–92; PULSE 69–152; RESP 16–32; TEMP 36.9–38.3; O2SAT 24–100
--- NOTE | ~2024-08-29 | XR_ITS ---
Portable chest x-ray Comparison: 09/10/2024 Clinical History: Pulmonary edema Findings: Endotracheal tube, NG tube, and right IJ line are in place. There is hazy bibasilar airspa ce disease, right worse than left. There is probable mild chronic interstitial change and/or COPD. C ardiomediastinal silhouette is stable. Bones and soft tissues are unremarkable. Impression: Hazy bilateral airspace disease at the lung bases. Correlate for pulmonary edema versus pneumonia. Probable underlying COPD or chronic interstitial change. Support tubes, as above. Reviewed, dictated and finalized at location . Impression: Hazy bilateral airspace disease at the lung bases. Correlate for pulmonary promise a versus pneumonia. Probable underlying COPD or chronic interstitial change. Support tubes, as above.
--- NOTE | ~2024-08-29 | CT_ITS ---
CLINICAL INDICATION: Sepsis COMPARISON: None. TECHNIQUE: Multiple contiguous axial images of the chest, abdomen and pelvis were performed without t he administration of intravenous contrast The dose-length product (DLP) was 500.82 mGy-cm. Automated exposure control and iterative reconstruction technique were employed. FINDINGS/OBSERVATIONS: LUNG: Dense bilateral infiltrates with air bronchograms within the bilateral upper, right middle and bilateral lower lobes, with relative sparing of the bilateral bases. MEDIASTINUM: Limited evaluation without intravenous contrast. HEART: The heart is of normal size, with a small pericardial effusion. SOFT TISSUES OF THE CHEST: Unremarkable. Liver: The liver demonstrates homogeneous attenuation and is not enlarged. Gallbladder and biliary system: The gallbladder is surgically absent.. Pancreas: Limited evaluation of the pancreas secondary to the lack of intravenous contrast. Spleen: The spleen demonstrates homogeneous attenuation and is not enlarged. Kidneys: 3 mm nonobstructing stone within the lower pole of the left kidney. The remainder of the bilateral kidneys are otherwise unremarkable, without hydronephrosis or addition al renal calculi. Adrenal glands: Unremarkable. Gastrointestinal tract: Fecal stasis within the distal colon and rectum. Colonic diverticulosis without inflammatory change. Appendix: The appendix is not definitively visualized. However, no pericecal inflammatory change is i dentified suggest the presence of acute appendicitis. Vasculature: Trace calcified atherosclerotic disease, without aneurysmal dilatation. Lymph nodes: Limited evaluation without intravenous contrast. Pelvic structures: The bladder is decompressed with a Obregon catheter, limiting its evaluation. Limited evaluation of the deep pelvis secondary to metallic streak artifact from patient's bilateral hip prostheses. Body wall and musculoskeletal: Age advanced degenerative disease within the thoracic and lumbosacral spines. 33 degrees of levoscoliotic curvature of the lumbar spine. IMPRESSION: Dense bilateral multifocal infiltrates, predominantly perihilar, as detailed above. No additional source is detected for patient's profound sepsis. Reviewed, dictated and finalized at location A. IMPRESSION: Dense bilateral multifocal infiltrates, predominantly perihilar, as detailed ab ove. No additional source is detected for patient's profound sepsis.
--- NOTE | ~2024-08-29 | XR_ITS ---
XR abdomen gastric tube insert Ordering provider: Bud James MD History: 68 years Female with . og placement . Comparison: None. FINDINGS: MEDIASTINUM: The cardiac silhouette is not enlarged. endotracheal tube with the tip above the sun by about 2.6 cm. Nasogastric tube is seen with the tip in the stomach. LUNGS: No effusions or pneumothorax. Bilateral upper lobe pneumonia with bilateral lower lobe pneumonia more on the left side. OTHER: No free air under the diaphragm. S-shaped scoliosis with degenerative changes. IMPRESSION: Bilateral pneumonia. Differential include pulmonary edema. Reviewed, dictated and finalized at location A.
--- NOTE | ~2024-08-29 | XR_ITS ---
EXAMINATION: XR chest 1V portable DATE: 09/01/2024 05:37 INDICATION: Respiratory failure TECHNIQUE: frontal view of the chest was obtained. COMPARISON: Chest radiograph dated 08/31/2024 FINDINGS: Endotracheal tube tip 3.3 cm above the sun. Nasogastric tube extends below the left hemidiaphragm with distal tip collimated off the study. Right upper extremity peripherally inserted central venous catheter (PICC) tip at the mid superior vena cava. Airspace opacities scattered throughout both lungs. No pleural effusion or pneumothorax. Heart size i s normal. IMPRESSION: 1. No significant change in patchy airspace opacities throughout both lungs which could represent pne umonia, pulmonary edema and/or ARDS. Reviewed, dictated and finalized at location A. IMPRESSION: 1. No significant change in patchy airspace opacities throughout both lungs whi ch could represent pneumonia, pulmonary edema and/or ARDS.
--- NOTE | ~2024-08-29 | XR_ITS ---
Portable chest x-ray Comparison: 08/29/2024 Clinical History: Increased oxygen demand Findings: Diffuse bilateral pulmonary consolidation is present, probably worsened from prior exam. Cardiomediastinal silhouette is stable. Bones and soft tissues are unremarkable. Impression: Worsening diffuse patchy bilateral pulmonary consolidation. Correlate for severe pulmonary edema or d iffuse pneumonia, or possibly RDS. Reviewed, dictated and finalized at [facility]. Impression: Worsening diffuse patchy bilateral pulmonary consolidation. Correlate for sever e pulmonary edema or diffuse pneumonia, or possibly RDS.
--- NOTE | ~2024-08-29 | XR_ITS ---
Portable chest x-ray Comparison: 09/05/2024 Clinical History: Pneumonia, ARDS Findings: Endotracheal tube, NG tube, and right IJ line are in place. Diffuse interstitial disease p resent with more confluent consolidation at the right lung base. There is minimal haziness left lung base. Cardiomediastinal silhouette is stable. Bones and soft tissues are unremarkable. Impression: Bibasilar airspace consolidation, right worse than left, with underlying chronic interstitial disease . Correlate for superimposed pulmonary edema or pneumonia. Support tubes, as above. Reviewed, dictated and finalized at location . Impression: Bibasilar airspace consolidation, right worse than left, with underlying chroni c interstitial disease. Correlate for superimposed pulmonary edema or pneumonia . Support tubes, as above.
--- NOTE | ~2024-08-29 | CT_ITS ---
EXAMINATION: CT brain wo con DATE: 09/09/2024 15:40 INDICATION: encephalopathy . TECHNIQUE: Computed tomography (CT) of the head was performed without intravenous contrast. The mA wa s adjusted according to patient size. Iterative reconstruction technique was employed. The dose-lengt h product was 605.33 mGy-cm. COMPARISON: 08/29/2024. FINDINGS: No acute intracranial hemorrhage or extra-axial fluid collection. No hydrocephalus, mass, or herniation. Large areas of low density, with edema and loss of brooks-white differentiation in the bilateral occipi minda lobes. Multifocal areas of low density in the bilateral cerebellar hemispheres. Focal low densiti es in the bilateral thalami. Unremarkable dural venous sinus attenuation. No acute osseous abnormality. Sphenoid mucosal thickening, partial opacification of the left might sinuses, large bilateral mastoid effusions, the remaining aerated spaces are clear. IMPRESSION: Large acute bilateral occipital lobe infarcts. Multifocal bilateral cerebellar infarcts. Focal bilate ral thalamic acute infarcts. Results reported telephonically to Halle Browning RN by Dr. Campos at 3:48 PM on 09/09/2024. Reviewed, dictated and finalized at location K. IMPRESSION: Large acute bilateral occipital lobe infarcts. Multifocal bilateral cerebellar infarcts. Focal bilateral thalamic acute infarcts. Results reported telephonically to Halle Browning RN by Dr. Campos at 3:48 PM on 09/09/2024.
--- NOTE | ~2024-08-29 | XR_ITS ---
Portable chest x-ray Comparison: 08/31/2024 12:00 AM Clinical History: Status post bronchoscopy Findings: Endotracheal tube, NG tube, and right PICC line are in place. Extensive pulmonary consolid ation and present. No pneumothorax. Cardiomediastinal silhouette is stable. Bones and soft tissues a re unremarkable. Impression: Stable diffuse pulmonary disease. No pneumothorax. Stable support tubes. Reviewed, dictated and finalized at [facility]. Impression: Stable diffuse pulmonary disease. No pneumothorax. Stable support tubes.
--- NOTE | ~2024-08-29 | XR_ITS ---
Portable chest x-ray Comparison: 08/30/2024 Clinical History: Respiratory failure Findings: Endotracheal tube, right-sided PICC line, and NG tube remain in place. Extensive bilateral pulmonary consolidation and present. Cardiomediastinal silhouette is stable. Bones and soft tissues are unremarkable. Impression: Stable diffuse pulmonary consolidation. Correlate for pulmonary edema, pneumonia, ARDS. Stable support tubes. Reviewed, dictated and finalized at [facility]. Impression: Stable diffuse pulmonary consolidation. Correlate for pulmonary edema, pneumoni a, ARDS. Stable support tubes.
--- NOTE | ~2024-08-29 | US_ITS ---
EXAMINATION: US venous doppler UE DATE: 09/03/2024 10:35 INDICATION: Bilateral upper limb swelling TECHNIQUE: Grayscale images without and with compression and Doppler images of the bilateral upper ex tremity veins were obtained. COMPARISON: None. FINDINGS: There is occlusive appearing noncompressible thrombus in the right subclavian vein, axillary vein, br achial vein, basilic vein, cephalic vein as well as an additional superficial vein in the right forea rm. The right internal jugular vein and radial vein are patent and compressible. Technologist reporte d that the right ulnar vein was also patent and compressible however the images were inadvertently no t recorded. Occlusive appearing noncompressible thrombus in the left axillary vein, brachial vein, basilic vein, cephalic vein and radial vein. Left internal jugular vein, subclavian vein and ulnar vein are patent. IMPRESSION: 1. Extensive deep and superficial venous thrombosis throughout the bilateral upper lungs as detailed above. Findings were discussed with Jacinto Victor, the nurse caring for the patient, at 10:59 AM. Reviewed, dictated and finalized at location A. IMPRESSION: 1. Extensive deep and superficial venous thrombosis throughout the bilateral up per lungs as detailed above. Findings were discussed with Jacinto Victor, the n urse caring for the patient, at 10:59 AM.
--- NOTE | ~2024-08-29 | XR_ITS ---
EXAMINATION: XR chest 1V portable DATE: 09/08/2024 05:45 INDICATION: Pneumonia and ARDS TECHNIQUE: frontal view of the chest was obtained. COMPARISON: Chest radiograph dated 09/07/2024 FINDINGS: Endotracheal tube tip 2.0 cm above the sun. Nasogastric tube extends below the left hemidiaphragm with distal tip collimated off the study. Right internal jugular central venous catheter with distal tip in the right atrium. No significant change in diffuse patchy distribution of bilateral indistinct interstitial and groundg lass opacities in both lungs most prominent at the bilateral lower lung zones. No pleural effusion or pneumothorax. The cardiomediastinal silhouette is normal. S-shaped thoracolumbar scoliosis with donte re spondylosis. IMPRESSION: 1. No significant change in diffuse patchy bilateral lung disease which could represent pneumonia, pu lmonary edema, ARDS or some combination thereof. Reviewed, dictated and finalized at location A. IMPRESSION: 1. No significant change in diffuse patchy bilateral lung disease which could r epresent pneumonia, pulmonary edema, ARDS or some combination thereof.
--- NOTE | ~2024-08-29 | XR_ITS ---
XR chest PICC line Ordering provider: Bud James MD History: 68 years Female with . PICC . Comparison: August 30, 2024 at 10:30 AM. FINDINGS/impression: Postoperative lines are unchanged. Right PICC line is seen with the tip overlying superior vena cava. Other appearances are unchanged. Reviewed, dictated and finalized at location A.
--- NOTE | ~2024-08-29 | XR_ITS ---
Portable chest x-ray Comparison: 09/08/2024 Clinical History: ARDS, pneumonia Findings: Endotracheal tube, NG tube, and right IJ line are in place. Hazy bibasilar airspace diseas e with underlying interstitial change is present. Cardiomediastinal silhouette is stable. Bones and soft tissues are unremarkable. Impression: Hazy bilateral airspace disease could reflect pneumonia versus pulmonary edema. Probable underlying chronic interstitial disease. Stable support tubes. Reviewed, dictated and finalized at [facility]. Impression: Hazy bilateral airspace disease could reflect pneumonia versus pulmonary edema. Probable underlying chronic interstitial disease. Stable support tubes.
--- NOTE | ~2024-08-29 | XR_ITS ---
Portable chest x-ray Comparison: 09/02/2024 Clinical History: Respiratory failure Findings: Endotracheal tube, NG tube, and right-sided PICC line are in place. Diffuse pulmonary cons olidation is present. Cardiomediastinal silhouette is stable. Bones and soft tissues are unremarkabl e. Impression: Diffuse bilateral pulmonary consolidation. Correlate for severe pulmonary edema, diffuse pneumonia, o r ARDS. Support tubes, as above. Reviewed, dictated and finalized at location M. Impression: Diffuse bilateral pulmonary consolidation. Correlate for severe pulmonary edema , diffuse pneumonia, or ARDS. Support tubes, as above.
--- NOTE | ~2024-08-29 | XR_ITS ---
XR chest ET placement Ordering provider: Bud James MD History: 68 years Female with . After intubation to confirm ET placement . Comparison: August 30, 2024 FINDINGS: MEDIASTINUM: The cardiac silhouette is not enlarged. Endotracheal tube is seen with the tip above the sun by about 2.8 cm. Nasogastric tube is seen wit h the tip in the stomach. LUNGS: No effusions or pneumothorax. Bilateral airspace disease seen in the upper lobes and lower lobes more on the left side. OTHER: No free air under the diaphragm. S-shaped scoliosis with degenerative changes of the spine. IMPRESSION: Bilateral pneumonia. Differential include pulmonary edema. Clinical correlation advised. Reviewed, dictated and finalized at location A.
--- NOTE | ~2024-08-29 | XR_ITS ---
CHEST RADIOGRAPH CLINICAL HISTORY: recheck et tube placement . COMPARISON: 09/06/2024 at 5:19 AM TECHNIQUE: Single portable view of the chest. FINDINGS Right internal jugular central venous catheter is present with its tip projecting over the proximal r ight atrium. Endotracheal tube is identified with its tip projecting approximately 3 cm above the base of the donato na. Nasogastric tube identified with its tip extending below the left hemidiaphragm, presumably within th e stomach. The remainder of the cardiomediastinal silhouette is otherwise unremarkable. Hazy opacification of the left hemithorax, an interval change from prior. The right mid to upper lung field is clear. IMPRESSION: Hazy opacification of the left hemithorax, an interval change from prior. Supportive lines and tubes are now in good position. Reviewed, dictated and finalized at location A.
--- NOTE | ~2024-08-29 | XR_ITS ---
Portable chest x-ray Comparison: 09/12/2024 Clinical History: Pneumonia Findings: Endotracheal tube, NG tube, and right IJ line are in place. Bibasilar airspace disease pre sent with minimal right pleural effusion. Left lung clear. Cardiomediastinal silhouette is stable. B ones and soft tissues are unremarkable. Impression: Right basilar pulmonary edema versus pneumonia. Small right pleural effusion. Support tubes, as above. Reviewed, dictated and finalized at location . Impression: Right basilar pulmonary edema versus pneumonia. Small right pleural effusion. Support tubes, as above.
--- NOTE | ~2024-08-29 | XR_ITS ---
XR chest 1V portable Ordering provider: Shameka Bolton MD History: 68 years Female with . ARDS, pneumonia . Comparison: September 04, 2024 FINDINGS: MEDIASTINUM: The cardiac silhouette is slightly enlarged. Endotracheal tube is above the sun by ab out 3 cm. Nasogastric tube seen just extending to the upper abdomen. Right central line with the tip overlying the right atrium LUNGS: No effusions or pneumothorax. Bilateral airspace disease suggestive of pneumonia. Pulmonary edema is also possible. OTHER: No free air under the diaphragm. Fracture area seen in the left seventh and eighth ribs are no tracey. Degenerative changes of the spine. IMPRESSION: Bilateral pneumonia. Pulmonary edema cannot be excluded. Supporting lines are unchanged. Reviewed, dictated and finalized at location A.
--- NOTE | ~2024-08-29 | XR_ITS ---
Portable chest x-ray Comparison: 09/06/2024 Clinical History: Pneumonia, ARDS Findings: Endotracheal tube, NG tube and right IJ line remain in place. Stable diffuse interstitial disease with hazy bibasilar lateral airspace disease as well, right worse than left. Cardiomediastin al silhouette is stable. Bones and soft tissues are unremarkable. Impression: Diffuse hazy and interstitial pulmonary disease. Correlate for pulmonary edema or pneumonia with prob able underlying COPD or other chronic interstitial disease. Support tubes, as above. Reviewed, dictated and finalized at location . Impression: Diffuse hazy and interstitial pulmonary disease. Correlate for pulmonary edema or pneumonia with probable underlying COPD or other chronic interstitial diseas e. Support tubes, as above.
--- NOTE | ~2024-08-29 | XR_ITS ---
Portable chest x-ray Comparison: 09/03/2024 Clinical History: Respiratory failure Findings: Endotracheal tube, NG tube, and right-sided PICC line are in place. Diffuse pulmonary airs pace disease is present with mild diffuse interstitial prominence. Cardiomediastinal silhouette is s table. Bones and soft tissues are unremarkable. Impression: Stable diffuse pulmonary disease. Stable support tubes. Reviewed, dictated and finalized at location . Impression: Stable diffuse pulmonary disease. Stable support tubes.
--- NOTE | ~2024-08-29 | CT_ITS ---
History: Sepsis PROCEDURE: CT head without contrast. COMPARISON: None TECHNIQUE: Axial imaging of the head performed from the skull base to the vertex without IV contrast. Sagittal a nd coronal reformations obtained. DLP: 605 mGy-cm FINDINGS: The ventricles are enlarged. The dilatation of the ventricles is proportional to the degree of sulcal prominence, not uncommon in the senescent brain. Decreased attenuation is identified within the periventricular white matter, likely secondary to micr ovascular ischemic disease, in a patient of this age. There is no mass, mass effect or midline shift. There is no abnormal extra-axial fluid collection or intracranial hemorrhage. Visualized paranasal sinuses are clear. The mastoid air cells are well aerated. No acute displaced fractures within the overlying cranium. Impression: No acute intracranial hemorrhage or suspicious mass effect. Reviewed, dictated and finalized at location A. Impression: No acute intracranial hemorrhage or suspicious mass effect.
--- NOTE | ~2024-08-29 | CT_ITS ---
EXAMINATION: CT chest abdomen pelvis wo con DATE: 09/09/2024 15:46 INDICATION: Pneumonia, CHF, ? ileus . TECHNIQUE: Computed tomography (CT) of the chest, abdomen, and pelvis was performed with 100 mL Omnip aque-350 intravenous contrast. Automated exposure control and iterative reconstruction technique were employed. The dose-length product was 589.37 mGy-cm. COMPARISON: X-ray chest, same date; CT cap 08/29/2024; CT 07/01/2024. FINDINGS: CHEST: Thoracic aorta: Borderline ascending aortic ectasia. No dissection. Lung parenchyma and airways: Endotracheal tube terminates 2.5 cm above the sun. Consolidative and groundglass opacities involving the majority of the right lower lobe. Subsegmental consolidation/atel ectasis in the dependent left lower lobe. Patchy areas of reticular and groundglass opacities noted p eripherally in the remainder of the lungs. Patent airways. Thoracic inlet, axillae and chest wall: No thyroid or soft tissue mass. No axillary lymphadenopathy. Asymmetric chest wall edema, more pronounced on the right and also involving the right upper extremit y. The left upper extremity is not included in the [id number]. Right IJ central line terminating i n the right atrium. Mediastinum: No mass or lymphadenopathy. Heart and pericardium: Normal heart size. No pericardial effusion. Coronary artery calcifications: Mild. Pleura: Trace bilateral pleural fluid collections. Thoracic bones: No acute osseous finding in the chest. Multiple subacute left rib fractures. ABDOMEN/PELVIS: Liver: Normal. Biliary/Gallbladder: Gallbladder is absent. No bile duct dilation. Pancreas: No mass or duct dilation. Spleen: Normal. Adrenals:No mass. Kidneys: No suspicious mass, obstructing stone, or hydronephrosis. GI tract: NG tube, terminating in the gastric body. No small or large bowel dilation. Appendix not co nfidently visualized. Mesentery/Peritoneum: No ascites, mass, or free air. Retroperitoneum: No mass Atherosclerotic calcifications of intra-abdominal arterial vessels. Pelvis: Pelvic organs are obscured by metal artifact. Fecal management system in place. Obregon cathete r in place. Soft Tissues: Mild body wall edema. Abdominopelvic bones: Uncomplicated appearing, partially visualized right hip radiograph plasty hard arteaga. Abnormal lucency surrounding the proximal aspect of the femoral stem of the left hip arthroplas ty hardware, which is a chronic finding. Subacute right obturator ring fractures. Subacute left infer ior ramus and medial acetabular wall fractures. Subacute bilateral sacral fractures are suspected. IMPRESSION: Endotracheal tube terminates 2.5 cm above the sun. Right IJ central line terminates in the right atrium. CT findings suggestive of right lower lobe pneumonia. Additional patchy bilateral groundglass and ret icular opacities may represent edema or multifocal infection, to include atypical variants. Small bilateral pleural effusions. Asymmetric chest wall edema, greater on the right. Correlate for signs of infection. Subacute pelvic and sacral fractures. Reviewed, dictated and finalized at location K. IMPRESSION: Endotracheal tube terminates 2.5 cm above the sun. Right IJ central line terminates in the right atrium. CT findings suggestive of right lower lobe pneumonia. Additional patchy bilater al groundglass and reticular opacities may represent edema or multifocal infect ion, to include atypical variants. Small bilateral pleural effusions. Asymmetric chest wall edema, greater on the right. Correlate for signs of infec tion. Subacute pelvic and sacral fractures.
--- NOTE | ~2024-08-29 | XR_ITS ---
Portable chest x-ray Comparison: 09/09/2024 Clinical History: Pulmonary edema Findings: Endotracheal tube, NG tube, and right IJ line are in place. Hazy bilateral airspace diseas e is present. No definite pleural effusion. Cardiomediastinal silhouette is stable. Bones and soft t issues are unremarkable. Impression: Patchy, hazy bilateral airspace disease. Correlate for pulmonary edema versus bilateral pneumonia. Possible underlying COPD or chronic interstitial disease. Support tubes, as above. Reviewed, dictated and finalized at location . Impression: Patchy, hazy bilateral airspace disease. Correlate for pulmonary edema versus b ilateral pneumonia. Possible underlying COPD or chronic interstitial disease. Support tubes, as above.
--- NOTE | ~2024-08-29 | XR_ITS ---
XR chest port-a-cath/central Ordering provider: Shameka Bolton MD History: 68 years Female with . Intrajugular central line placement . Comparison: September 05, 2023 FINDINGS: MEDIASTINUM: The cardiac silhouette is not enlarged. Endotracheal tube with the tip above the sun by about 4.8 cm. Nasogastric tube is seen extending to the stomach. LUNGS: No effusions or pneumothorax. Bilateral opacification in the upper and lower lobes with inters titial opacification suggestive of pulmonary edema versus pneumonia. OTHER: No free air under the diaphragm. IMPRESSION: Bilateral pneumonia versus pulmonary edema. Reviewed, dictated and finalized at location A.
--- NOTE | ~2024-08-29 | XR_ITS ---
CHEST RADIOGRAPH CLINICAL HISTORY: AMS, FEVER . COMPARISON: 08/28/2021 TECHNIQUE: Single portable view of the chest. FINDINGS The cardiomediastinal silhouette is partially obscured. Dense opacifications bilaterally with air bronchograms consistent with severe multifocal pneumonia ve rsus pulmonary edema, less likely. IMPRESSION: Severe multifocal pneumonia versus pulmonary edema, less likely Reviewed, dictated and finalized at location A.
--- NOTE | ~2024-08-29 | XR_ITS ---
Portable chest x-ray Comparison: 09/01/2024 Clinical History: Respiratory failure Findings: Endotracheal tube, NG tube, and right-sided PICC line in place. Extensive bilateral airspa ce disease is present, unchanged. Cardiomediastinal silhouette is stable. Bones and soft tissues are unremarkable. Impression: Stable diffuse bilateral pulmonary disease. Correlate for pulmonary edema, pneumonia, ARDS. Stable support tubes. Reviewed, dictated and finalized at location . Impression: Stable diffuse bilateral pulmonary disease. Correlate for pulmonary edema, pneu monia, ARDS. Stable support tubes.
--- NOTE | ~2024-08-29 | XR_ITS ---
Portable chest x-ray Comparison: 09/11/2024 Clinical History: Pulmonary edema Findings: Endotracheal tube, NG tube, and right IJ line are in place. There is hazy right basilar ai rspace disease. Left lung nearly clear. Cardiomediastinal silhouette is stable. Bones and soft tissu es are unremarkable. Impression: Right basilar pulmonary edema versus pneumonia. Left lung nearly clear. Support tubes, as above. Reviewed, dictated and finalized at location . Impression: Right basilar pulmonary edema versus pneumonia. Left lung nearly clear. Support tubes, as above.
--- NOTE | 2024-08-29 16:40 | ED_ITS ---
HPI - General Adult General Chief complaint: Altered Mental Status Stated complaint: 10infection to groin Time Seen by Provider: 08/29/24 16:37 History of Present Illness HPI narrative: Patient is a 68-year-old female who presents ER with altered mental status. Patient has had illness over last week and had been on some antibiotics for possible skin infection due to a sore on her right labia and her left posterior buttock. Patient is awake and intermittently follows commands. She is not answering questions for me. She has dried spit to her teeth and lips. Patient has history of RA and is immunocompromised. Related Data Home Medications ?Medication ?Instructions ?Recorded ?Confirmed ?Last Taken ?Type ascorbic acid (vitamin C) 1,000 mg 1 gm PO DAILY 04/26/19 07/30/24 12/14/20 History tablet celecoxib 200 mg capsule 200 mg PO BID 04/26/19 07/30/24 12/14/20 History cholecalciferol (vitamin D3) 25 1,000 unit PO DAILY 04/26/19 07/30/24 12/14/20 History mcg (1,000 unit) capsule ferrous sulfate 325 mg (65 mg 325 mg PO DAILY 04/26/19 07/30/24 12/14/20 History iron) tablet (Feosol) folic acid 1 mg tablet 1 mg PO DAILY 04/26/19 07/30/24 12/14/20 History lactobacillus combination no.8 3 3,000 mmu cells PO DAILY 04/26/19 07/30/24 12/14/20 History billion cell capsule (Adult Probiotic) multivitamin 1 tablet PO DAILY 04/26/19 07/30/24 12/14/20 History magnesium 250 mg tablet 250 mg PO DAILY 03/04/20 07/30/24 12/14/20 History zinc 50 mg tablet 50 mg PO DAILY 03/04/20 07/30/24 12/14/20 History methotrexate sodium 2.5 mg tablet 2.5 mg PO .COMPLEX 01/21/21 07/30/24 Unknown History esomeprazole magnesium 40 mg 40 mg PO DAILY 02/03/22 07/30/24 Unknown History capsule,delayed release (Nexium) melatonin 10 mg capsule 10 mg PO DAILY PRN Insomnia 08/26/22 07/30/24 Unknown History tramadol 50 mg tablet 50 mg PO Q6H PRN Pain 01/27/23 07/30/24 Unknown History calcium 600 mg (as 1 tablet PO DAILY 05/04/23 07/30/24 Unknown History carbonate)-vitamin D3 10 mcg (400 unit) tablet (Calcium 600 + D(3)) hydroxychloroquine 200 mg tablet 200 mg PO DAILY 05/04/23 07/30/24 Unknown History sucralfate 1 gram tablet 1 g PO BID 05/04/23 07/30/24 Unknown History fexofenadine 60 mg tablet (Glendy 60 mg PO Q12H 09/05/23 07/30/24 Unknown History Allergy) upadacitinib 15 mg tablet,extended 15 mg PO DAILY 05/29/24 07/30/24 Unknown History release 24 hr (Rinvoq) Allergies Allergy/AdvReac Type Severity Reaction Status Date / Time adalimumab Allergy Mild Itching Verified 08/07/24 11:55 codeine AdvReac Mild Itching Verified 08/07/24 11:55 Review of Systems 2 Review of Systems: ROS unobtainable: Yes unobtainable due to mental status [facility] Past Medical History Medical History PONV (postoperative nausea and vomiting) Left knee DJD Chronic right shoulder pain Left shoulder pain Anemia Immunosuppressed status Osteoarthritis Glaucoma Iron deficiency anemia Crohn's disease Gastroesophageal reflux disease Mixed hyperlipidemia Osteoporosis Psoriatic arthritis RLS (restless legs syndrome) Rheumatoid arthritis Surgical History Surgical History S/P total knee arthroplasty LT TKA 05/18/23 Status post bilateral total hip replacement Status post ankle fusion With subsequent hardware removal and redo. Status post rotator cuff repair Bilateral. Status post cholecystectomy History of section Status post total right knee replacement History of temporal artery biopsy In October 2016. No pathologic abnormalities noted. Family History Family History Mother Family history of osteoporosis Cerebrovascular accident Family history of Alzheimer's disease Family history of coronary artery disease Acute myocardial infarction Family history of malignant melanoma Family history of malignant neoplasm of ovary Heart disease Father Family history of coronary artery disease Family history of heart disease in male family member before age 55 Family history of lung cancer, Onset Age: 48 Sibling Family history of lung cancer Family history of malignant melanoma Family history of malignant neoplasm of urinary bladder Heart disease Sibling Cancer Heart disease Other Family history of malignant neoplasm Hypertension Social History Social History Social History: The patient lives in [place] with her . They have 2 dogs that live at home, but her mainly outside. 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 She designates her , and her [id number] Debra, as her surrogate decision makers and she wishes to be a full code. She is a lifelong nonsmoker and denies alcohol and drug abuse. Smoking status: Never smoker Additional smoking assessment comments: DENIES ANY FORM OF TOBACCO USE Alcohol intake: never Substance use: never Substance use type: does not use Do You Feel Safe in your Home?: Yes Lack of Transportation: No Lack of Food: Never True Current Housing: I Have Housing Concerned About Future Housing: No Difficulty Paying Gas/Electric Bills: No Difficulty Paying for Meds: No Currently Unemployed: No Education: Trade/Vocational Certificate Difficulty w/ Childcare or Family Care: No Living arrangements: with family Occupation/Education: retired Gender identity (if verbalized by the patient): Female Sexual Orientation (if Verbalized by the Patient): Straight or Heterosexual Spiritual care concerns: No Agree to blood products: Yes Exam 2 Narrative: GENERAL: ill-appearing, thin, and in no acute distress. HEAD: Normocephalic, atraumatic. EYES: PERRL and EOMI. ENT: Dry mucous membranes. CHEST: Clear to auscultation. No respiratory distress. HEART: Regular rate and rhythm. Normal peripheral pulses. ABDOMEN: Soft, nontender, nondistended. EXTREMITIES: Normal range of motion. No edema. SKIN: Warm, dry. Healing sores right labia majora and the left posterior buttock area. No cellulitis. No purulent drainage. The sores are yellow and almost appear like Course Course Emergency Course: Patient received 3 L of IV fluid which is greater than 30 milliliters/kilogram. Blood pressure 120/69. Still tachycardic. Blood cultured and broad-spectrum antibiotics ordered for pneumonia. Patient with elevated lactic acid. Patient is family has been educated on the seriousness of her illness. Patient is a full code. Admit to the hospitalist service and placed in IMU. Potassium will be replaced IV. We will recheck blood sugar that it has remained at a normal level since she received the D10. Vital Signs Vital signs: Vital Signs Temperature 100.9 F H 08/29/24 16:25 Pulse Rate 140 H 08/29/24 16:25 Respiratory Rate 22 H 08/29/24 16:25 Blood Pressure 110/72 08/29/24 16:25 Oxygen Delivery Room Air 08/29/24 16:25 Temperature 100.9 F H 08/29/24 16:25 Pulse Rate 122 H 08/29/24 17:24 Respiratory Rate 22 H 08/29/24 16:25 Blood Pressure 110/72 08/29/24 16:25 Pulse Oximetry 92 08/29/24 17:13 Oxygen Delivery Nasal Cannula 08/29/24 17:13 Oxygen Flow Rate 2 08/29/24 17:13 Medical Decision Making Vital Signs Vital Signs: Vital Signs Temperature 100.9 F H 08/29/24 16:25 Pulse Rate 140 H 08/29/24 16:25 Respiratory Rate 22 H 08/29/24 16:25 Blood Pressure 110/72 08/29/24 16:25 Oxygen Delivery Room Air 08/29/24 16:25 Temperature 100.9 F H 08/29/24 16:25 Pulse Rate 122 H 08/29/24 17:24 Respiratory Rate 22 H 08/29/24 16:25 Blood Pressure 110/72 08/29/24 16:25 Pulse Oximetry 92 08/29/24 17:13 Oxygen Delivery Nasal Cannula 08/29/24 17:13 Oxygen Flow Rate 2 08/29/24 17:13 Lab Data 08/29/24 17:08 08/29/24 17:08 Labs: Lab Results 08/29/24 Range/Units 17:08 WBC 9.2 (4.5-10.0) K/mm3 RBC 3.06 L (4.2-5.4) M/mm3 Hgb 9.3 L (12.0-15.0) g/dL Hct 29.5 L (37.0-47.0) % MCV 96.4 (80-100) fl MCH 30.4 (26-34) pg MCHC 31.5 L (32-36) g/dl RDW 24.3 H (11.5-14.5) % Plt Count 495 H (150-375) k/mm3 MPV 9.8 (7.4-10.4) fl Immature Gran % (Auto) Not Reportable Neut % (Auto) Not Reportable Lymph % (Auto) Not Reportable [place] % (Auto) Not Reportable Eos % (Auto) Not Reportable Baso % (Auto) Not Reportable Lymph # (Auto) Not Reportable [place] # (Auto) Not Reportable Eos # (Auto) Not Reportable Baso # (Auto) Not Reportable Abs Immat Gran (auto) Not Reportable Absolute Neuts (auto) Not Reportable Absolute Nucleated RBC Not Reportable Total Counted 100 Neutrophils % (Manual) 74 H (46-73) % Band Neutrophils % 10 H (0-6) % Lymphocytes % (Manual) 7.0 L (18-44) % Monocytes % (Manual) 8 (3-9) % Basophils % (Manual) 1 (0-1) % Nucleated RBC % Not Reportable Abs Neuts (Manual) 7.72 H (1.3-6.7) K/mm3 Abs Lymphs (Manual) 0.64 L (1.1-4.5) K/mm3 Abs Monocytes (Manual) 0.73 (0.1-0.90) K/mm3 Abs Basophils (Manual) 0.09 (0.0-0.1) K/mm3 Platelet Estimate Increased (Adequate) Hypochromasia 1+ Anisocytosis 3+ Schistocytes None seen PT 16.5 H (11.1-14.7) Seconds INR 1.3 APTT 41.0 H (22.3-36.8) Seconds Sodium 134 L (137-145) mmol/L Potassium 3.1 L (3.4-5.0) mmol/L Chloride 98 (98-107) mmol/L Carbon Dioxide 19 L (22-30) mmol/L Anion Gap 17 H (4-12) mmol/L BUN 18 H (7-17) mg/dL Creatinine 1.53 H (0.7-1.0) mg/dL Estim Creat Clear Calc 24 ml/min Estimated GFR 34 L (59 - ) Glucose 131 H (65-110) mg/dL Lactic Acid 8.4 H* (0.7-2.0) mmol/L Calcium 8.6 (8.4-10.2) mg/dL Total Bilirubin 0.3 (0.2-1.3) mg/dL AST 122 H (14-36) U/L ALT 54 H (6-35) U/L Alkaline Phosphatase 127 H (38-126) U/L Total Protein 5.3 L (6.3-8.2) g/dL Albumin 2.9 L (3.5-5.1) g/dL Urine Color Dark yellow (Yellow) Urine Appearance Turbid H (Clear) Urine pH 5.0 (5.0-9.0) Ur Specific [place] 1.022 (1.001-1.035) Urine Protein 2+ H (Negative) mg/dL Urine Glucose (UA) Negative (Negative) mg/dL Urine Ketones Trace H (Negative) mg/dL Ur Blood (Man) 3+ H (Negative) Urine Nitrate Negative (Negative) Urine Bilirubin 1+ H (Negative) Urine Urobilinogen 1.0 (<2.0) mg/dL Leukocyte Esterase Rfl Trace H (Negative) NATALIYA/UL Urine RBC 21-50 H (0-2) /hpf Urine WBC 6-10 H (0-3) /hpf Ur Squamous Epith Cells Many H (Few) /hpf Urine Bacteria 2+ H /hpf Urine Casts >20 Hyaline Casts Present (None) /lpf Influenza A (RT-PCR) Negative (Negative) Influenza B (RT-PCR) Negative (Negative) RSV (RT-PCR) Negative (Negative) SARS-CoV-2 RNA (RT-PCR) Negative (Negative) Imaging Data Radiologist's impression: ITS Impressions Chest X-Ray 08/29/24 17:47 IMPRESSION: Severe multifocal pneumonia versus pulmonary edema, less likely ECG Data EKG #1: ECG completion date: 08/29/24 ECG completion time: 17:11 EKG Interpretation: tachycardia (126), sinus rhythm, non-specific ST changes, normal QRS and normal QT Critical Care Time Critical Care Time Critical Care Time: Yes Total Critical Care Time: 35 Discharge Plan Discharge Clinical Impression: Pneumonia, Altered mental status, Sepsis, FRANK (acute kidney injury), Hypokalemia Patient Disposition: Still a Patient Condition: Serious Patient Language: Tanzanian Prescriptions: No Action doxycycline hyclate 100 mg tablet 100 mg PO BID 10 Days Qty: 20 0RF folic acid 1 mg tablet 1 mg PO DAILY celecoxib 200 mg capsule 200 mg PO BID multivitamin Tablet 1 tablet PO DAILY Adult Probiotic 3 billion cell capsule 3,000 mmu cells PO DAILY Rx Instructions: administer with a meal ferrous sulfate [Feosol] 325 mg (65 mg iron) tablet 325 mg PO DAILY ascorbic acid (vitamin C) 1,000 mg tablet 1 gm PO DAILY cholecalciferol (vitamin D3) 25 mcg (1,000 unit) capsule 1,000 unit PO DAILY zinc 50 mg tablet 50 mg PO DAILY magnesium 250 mg tablet 250 mg PO DAILY melatonin 10 mg capsule 10 mg PO DAILY PRN (Reason: Insomnia) methylprednisolone 4 mg tablets,dose pack See Rx Instructions PO PER PKG DIR Qty: 21 0RF Rx Instructions: PO PER PKG DIR methotrexate sodium 2.5 mg tablet 2.5 mg PO .COMPLEX Rx Instructions: 2.5 mg PO TAKE 6 TABLETS BY ORAL ROUTE once a EVERY WEEK ON TUESDAY; esomeprazole magnesium [Nexium] 40 mg capsule,delayed release(DR/EC) 40 mg PO DAILY fexofenadine [Glendy Allergy] 60 mg tablet 60 mg PO Q12H Mucinex DM 30-600 mg tablet extended release 12 hr See Rx Instructions PO Q12H PRN (Reason: cough) Qty: 30 0RF Rx Instructions: 1-2 tablets orally every 12 hours PRN; Rinvoq 15 mg tablet extended release 24 hr 15 mg PO DAILY escitalopram oxalate 20 mg tablet See Rx Instructions .ROUTE .COMPLEX Qty: 90 1RF Dose Instruction: Take 1 tablet by mouth once daily Rx Instructions: Take 1 tablet by mouth once daily prednisolone sodium phosphate 1 % drops 1 drp RIGHT EYE Q12H Qty: 10 0RF calcium carbonate-vitamin D3 [Calcium 600 + D(3)] 600 mg-10 mcg (400 unit) Tablet 1 tablet PO DAILY hydroxychloroquine 200 mg tablet 200 mg PO DAILY sucralfate 1 gram tablet 1 g PO BID tramadol 50 mg tablet 50 mg PO Q6H PRN (Reason: Pain) fluticasone propionate 50 mcg/actuation spray,suspension 1 spray intranasal PRN PRN (Reason: Allergy Symptoms) Qty: 16 5RF Rx Instructions: administer once spray into each nostril twice daily. methylprednisolone 4 mg tablets,dose pack See Rx Instructions PO PER PKG DIR Qty: 21 0RF Rx Instructions: PO PER PKG DIR valacyclovir 1 gram tablet 1,000 mg PO TID Qty: 21 0RF betamethasone valerate 0.1 % ointment 1 applic topical BID Qty: 15 0RF alprazolam 0.5 mg tablet 0.5 mg PO BID PRN (Reason: anxiety) Qty: 60 0RF clotrimazole [Antifungal (clotrimazole)] 1 % cream 1 applic topical Q12H Qty: 15 1RF Follow-up/Referrals: Genet Patel APRN [Primary Care Provider] -
--- NOTE | 2024-08-29 16:47 | ECG_ITS ---
Test Date: 2024-08-29 17:11:55 Measurements Intervals [place] Rate: 126 P: 73 MA: 139 QRS: 63 QRSD: 79 T: 50 QT: 342 QTc: 496 Interpretive Statements SINUS TACHYCARDIA BORDERLINE T WAVE ABNORMALITY- INFERIOR LEADS BASELINE ARTIFACT- I, II, III, AVR, AVL, AVF ABNORMAL ECG No previous ECG available for comparison Electronically Signed On 08-29-2024 21:02:40 CDT by Damion Vega D.O.
[2024-08-29 17:15] LABS: Hematocrit 29.5 % (37.0-47.0); Hemoglobin 9.3 g/dL (12.0-15.0); Mean Corpuscular HGB Conc 31.5 g/dl (32-36); Mean Corpuscular Hemoglobin 30.4 pg (26-34); Mean Corpuscular Volume 96.4 fl (80-100); Platelet Count Result 495 k/mm3 (150-375); Red Blood Count 3.06 M/mm3 (4.2-5.4); White Blood Count 9.2 K/mm3 (4.5-10.0)
[2024-08-29] MEDS: SODIUM CHLORIDE 0.9% IV 1,000 ML 999 ML IV CONT ×3 (17:16→18:13)
[2024-08-29 17:25] LABS: Alanine Aminotransferase 54 U/L (6-35); Albumin Level 2.9 g/dL (3.5-5.1); Alkaline Phosphatase 127 U/L (38-126); Anion Gap 17 mmol/L (4-12); Bilirubin,Total 0.3 mg/dL (0.2-1.3); Blood Urea Nitrogen 18 mg/dL (7-17); Calcium 8.6 mg/dL (8.4-10.2); Carbon Dioxide 19 mmol/L (22-30); Chloride 98 mmol/L (98-107); Estimated CRCL calculation 24 ml/min; Estimated Glomerular Filt Rate 34; Glucose 131 mg/dL (65-110); Potassium 3.1 mmol/L (3.4-5.0); Sodium 134 mmol/L (137-145); Total Protein 5.3 g/dL (6.3-8.2)
[2024-08-29 17:28] LABS: INR 1.3; Prothrombin Time 16.5 Seconds (11.1-14.7)
[2024-08-29 17:29] LABS: Partial Thromboplastin Time 41.0 Seconds (22.3-36.8)
[2024-08-29 17:30] LABS: Add Urine Microscopic? YES; Appearance Urine Turbid (Clear); Glucose Urine UA Negative (Negative); Leukocyte Esterase Ur Trace LEU/UL (Negative); Nitrate Urine Negative (Negative); Non Pathogenic Casts >20; Specific Grav Ur 1.022 (1.001-1.035)
[2024-08-29 17:37] LABS: Aspartate Amino Transferase 122 U/L (14-36)
[2024-08-29 17:40] LABS: Band Neutrophils Percent 10 % (0-6); Basophils Absolute Manual 0.09 K/mm3 (0.0-0.1); Basophils Percent Manual 1 % (0-1); Lymphocytes Absolute Manual 0.64 K/mm3 (1.1-4.5); Lymphocytes Percent Manual 7.0 % (18-44); Monocytes Absolute Manual 0.73 K/mm3 (0.1-0.90); Monocytes Percent Manual 8 % (3-9); Neutrophils Absolute Manual 7.72 K/mm3 (1.3-6.7); Neutrophils Percent Manual 74 % (46-73); Total Cells Counted 100
[2024-08-29 17:41] LABS: Schistocytes None Seen
[2024-08-29 17:42] LABS: Anisocytosis 3+; Hypochromasia 1+
--- OUTSIDE RECORDS SUMMARY | 2024-08-29 17:50 | XMS_ITS | Clinical Summary ---
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 This disclosure is being madepursuant to the Care Everywhere program and may not contain all information available regarding this patient. 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
--- OUTSIDE RECORDS SUMMARY | 2024-08-29 17:50 | XMS_ITS | Patient Health Record ---
Author Organization [facility] Address [address] [facility] [address] [facility] [address] [place], [place] [id number] Care Team Providers Care Triage Specialist Name Role Phone JOSHUAHALIMA Primary Care Provider UnavailBrenda Wolfe Unavailable [phone] Unavailable Unavailable Dulce Andrade Unavailable [phone] ALLERGIES Allergen (clinical drug ingredient) Drug/Non Drug Allergy documented on EMR Reaction Allergy Type Onset Date Status codeine codeine rash, headache Drug Allergy Ac tive RESULTS Component Value Reference Range Notes AST (SGOT) Reviewed date:09/13/2023 07:31:55 AM Interpretation: Performing Lab:[facility], [address] [place] [address], Phone - [phone], Director - PhDChika Notes/Report: AST (SGOT) 21 0-40 IU/L Creatinine, Serum Reviewed date:09/13/2023 07:42:32 AM Interpretation: Performing Lab:[facility] [address] [place] [address], Phone - [phone], Director - PhDNorth[facility] State Hospitalabdoulaye Notes/Report: Creatinine 0.57 0.57-1.00 mg/dL eGFR 101 >59 mL/min/1.73 ALT (SGPT) Reviewed date:09/13/2023 07:31:57 AM Interpretation: Performing Lab:[facility], [address] [facility], Phone - [phone], Director - PhDChika Notes/Report: ALT (SGPT) 20 0-32 IU/L CBC With Differential/Platel et Reviewed date:09/14/2023 07:33:32 AM Interpretation: Performing Lab:[facility] [address] [place] [address], Phone - [phone], Director - Kurt Notes/Report: WBC 13.9 3.4-10.8 x10E3/uL RBC 3.60 3.77-5.28 x10E6/uL Hemoglobin 10.6 11.1-15.9 g/dL Hematocrit 32.3 34.0-46.6 % MCV 90 79-97 fL MCH 29.4 26.6-33.0 pg MCHC 32.8 31.5-35.7 g/dL RDW 15.4 11.7-15.4 % Platelets 462 150-450 x10E3/uL Neutrophils 93 Not Estab. % Lymphs 3 Not Estab. % Monocytes 3 Not Estab. % Eos 0 Not Estab. % Basos 0 Not Estab. % Immature Cells Neutrophils (Absolute) 12.9 1.4-7.0 x10E3/uL Lymphs (Absolute) 0.5 0.7-3.1 x10E3/uL Monocytes(Absolute) 0.4 0.1-0.9 x10E3/uL Eos (Absolute) 0.0 0.0-0.4 x10E3/uL Baso (Absolute) 0.0 0.0-0.2 x10E3/uL Immature Granulocytes 1 Not Estab. % Immature Grans (Abs) 0.1 0.0-0.1 x10E3/uL NRBC Hematology Comments: AST (SGOT) Reviewed date:02/10/2024 07:34:06 PM Interpretation: Performing Lab:[facility] [place] [facility], Phone - [phone], Director - Kurt Notes/Report: AST (SGOT) 42 0-40 IU/L Creatinine, Serum Reviewed date:12/23/2023 04:35:08 PM Interpretation: Performing Lab:[facility] [place], [address] [place] [address], Phone - [phone], Director - Kurt Notes/Report: Creatinine 0.53 0.57-1.00 mg/dL eGFR 102 >59 mL/min/1.73 ALT (SGPT) Reviewed date:02/10/2024 07:34:06 PM Interpretation: Performing Lab:[address], Phone - [phone], [facility] Notes/Report: ALT (SGPT) 50 0-32 IU/L CBC With Differential/Platel et Reviewed date:02/10/2024 07:34:06 PM Interpretation: Performing Lab:[address], Phone - [phone], Director - [facility] Notes/Report: WBC 4.9 3.4-10.8 x10E3/uL RBC 3.27 3.77-5.28 x10E6/uL Hemoglobin 10.3 11.1-15.9 g/dL Hematocrit 32.7 34.0-46.6 % MCV 100 79-97 fL MCH 31.5 26.6-33.0 pg MCHC 31.5 31.5-35.7 g/dL RDW 16.1 11.7-15.4 % Platelets 327 150-450 x10E3/uL Neutrophils 66 Not Estab. % Lymphs 16 Not Estab. % Monocytes 11 Not Estab. % Eos 5 Not Estab. % Basos 1 Not Estab. % Immature Cells Neutrophils (Absolute) 3.3 1.4-7.0 x10E3/uL Lymphs (Absolute) 0.8 0.7-3.1 x10E3/uL Monocytes(Absolute) 0.5 0.1-0.9 x10E3/uL Eos (Absolute) 0.3 0.0-0.4 x10E3/uL Baso (Absolute) 0.1 0.0-0.2 x10E3/uL Immature Granulocytes 1 Not Estab. % Immature Grans (Abs) 0.0 0.0-0.1 x10E3/uL NRBC Hematology Comments: Sed Rate - Westergren Reviewed date:12/23/2023 04:35:08 PM Interpretation: Performing Lab:[address], Phone - [phone], Director [facility] Notes/Report: Sedimentation Rate-Westergren 13 0-40 mm/hr C-Reactive Protein, Quant Reviewed date:12/23/2023 04:35:08 PM Interpretation: Performing Lab:[address], Phone - [phone], Director - [facility] Notes/Report: C-Reactive Protein, Quant 20 0-10 mg/L QUANTIFERON(R)-TB GOLD PLUS, 1 TUBE Reviewed date:12/23/2023 04:35:08 PM Interpretation: Performing Lab:[address], Phone - [phone], Director - [facility] Notes/Report: QuantiFERON Incubation Incubation performed. QuantiFERON-TB Gold Plus Negative Negative No response to M tuberculosis antigens detected. Infection with M tuberculosis is unlikely, but high risk individuals should be considered for additional testing (ATS/IDSA/CDC Clinical Practice Guidelines, 2017). The reference range is an Antigen minus Nil result of <0.35 IU/mL. Chemiluminescence immunoassay methodology QuantiFERON Criteria QuantiFERON-TB Gold Plus is a qualitative indirect test for M tuberculosis infection (including disease) and is intended for use in conjunction with risk assessment, radiography, and other medical and diagnostic evaluations. The QuantiFERON-TB Gold Plus result is determined by subtracting the Nil value from either TB antigen (Ag) value. The Mitogen tube serves as a control for the test. QuantiFERON TB1 Ag Value 0.13 QuantiFERON TB2 Ag Value 0.12 QuantiFERON Nil Value 0.13 QuantiFERON Mitogen Value >10.00 AST (SGOT) Reviewed date:03/17/2024 03:36:27 PM Interpretation: Performing Lab:[address], Phone - [phone], Director - [facility] Notes/Report: AST (SGOT) 26 0-40 IU/L Creatinine, Serum Reviewed date:03/20/2024 11:47:41 AM Interpretation: Performing Lab:[address], Phone - [phone], Director - [facility] Notes/Report: Creatinine 0.56 0.57-1.00 mg/dL eGFR 101 >59 mL/min/1.73 ALT (SGPT) Reviewed date:03/17/2024 03:36:35 PM Interpretation: Performing Lab:[address], Phone - [phone], Director - [facility] Notes/Report: ALT (SGPT) 17 0-32 IU/L CBC With Differential/Platel et Reviewed date:03/17/2024 03:38:58 PM Interpretation: Performing [facility] [address] [facility], Phone - [phone], Director - [facility] Notes/Report: WBC 7.2 3.4-10.8 x10E3/uL RBC 3.49 3.77-5.28 x10E6/uL Hemoglobin 10.3 11.1-15.9 g/dL Hematocrit 33.7 34.0-46.6 % MCV 97 79-97 fL MCH 29.5 26.6-33.0 pg MCHC 30.6 31.5-35.7 g/dL RDW 14.8 11.7-15.4 % Platelets 325 150-450 x10E3/uL Neutrophils 68 Not Estab. % Lymphs 15 Not Estab. % Monocytes 11 Not Estab. % Eos 5 Not Estab. % Basos 1 Not Estab. % Immature Cells Neutrophils (Absolute) 4.9 1.4-7.0 x10E3/uL Lymphs (Absolute) 1.1 0.7-3.1 x10E3/uL Monocytes(Absolute) 0.8 0.1-0.9 x10E3/uL Eos (Absolute) 0.3 0.0-0.4 x10E3/uL Baso (Absolute) 0.1 0.0-0.2 x10E3/uL Immature Granulocytes 0 Not Estab. % Immature Grans (Abs) 0.0 0.0-0.1 x10E3/uL NRBC Hematology Comments: Acute Hepatitis Reviewed date:03/17/2024 03:36:23 PM Interpretation: Performing Lab:[facility], [address] [facility] [place], Phone - [phone], Director - [facility] Notes/Report: Hep A Ab, IgM Negative Negative A negative anti-HAV IgM result suggests no recent or current HAV infection. HBsAg Screen Negative Negative Hep B Core Ab, IgM Negative Negative HCV Ab Non Reactive Non Reactive Interpretation: Not infected with HCV unless early or acute infection is suspected (which may be delayed in an immunocompromised individual), or other evidence exists to indicate HCV infection. REASON FOR REFERRAL No Information MEDICATIONS Medication SIG (Take, Route, Frequency, Duration) Notes Start Date End Date Status Vitamin C 500 mg 1 cap(s) orally once a day Active Voltaren Topical 1% APPLY TWO GRAMS TOPICALLY TWICE DAILY to hands and wrist for 30 days Active Lexapro 10 mg 1 tab(s) orally once a day Active Methotrexate Sodium 2.5MG 8 tabs orally once a week for 28 days Active Align every day Active traMADol 50 mg 1-2 tab(s) orally 4 times a day for 30 days 07/16/2024 Active Carafate 1 g 1 tab(s) orally 4 ti mes a day (before meals and at bedtime) Active Rinvoq 15 mg Take 1 tablet by lucero th once daily for 30 Active Vitamin B12 1000 mcg 1 tab(s) orally onc e a day Active predniSONE 5 mg 1 tab(s) orally ever y other day for 30 day(s) Active Hydroxychloroquine Sulfate 200 mg 1 tab(s) orally once a day for 90 days Active predniSONE 5 mg 6 tablets for 2 days then decrease by 1 tablet every 2 days until jt orally once a day for 12 days 07/19/2024 Active One-A-Day Women Multiple Vitamins with Minerals 1 tab(s) orally once a day Active Fiber daily Active folic acid 1 mg 1 tab(s) orally once a day Active Vitamin D3 1000 intl units 1 tab(s) oral ly once a day Active Orencia ClickJect 125 mg/mL INJECT 1 SYR ESTELA SUBCUTANEOUSLY ONCE A WEEK subcutaneously once a week for 28 days Active Calcium 600+D 1 tab(s) orally 1 ti mes a day Active iron as directed oral Act prashanth Reclast 5 mg/100 mL 0 intravenously once Active Clobetasol (Eqv-Temovate E) Active Imuran 50 mg TAKE 1 TABLET BY LUCERO TH ONCE DAILY Active fish oil as directed oral onc e a day Active CeleBREX 200MG 1 cap oral 2 times a day for 90 days Active PROBLEMS Problem Type ICD Code Onset Dates Problem Status W/U Status Risk SNOMED Code Notes 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) Active confirmed 973762217 Problem Osteoporosis (M81.0) Active confirmed 6 1618269 Problem Psoriatic arthritis (L40.50) Active confirmed Psoriatic arthritis (639489216) Problem Polyarthritis (M13.0) Active confirmed 69412982 Problem Anemia (D64.9) Active confirmed 5121432 00 Problem Crohns disease (K50.90) Active confirmed 45468102 Problem Non-smoker (Z78.9) Active confirmed 839 2000 Problem Right hand pain (M79.641) Active confirmed 84919944 Problem Spondyloarthropathy (M46.90) Active confirmed 463229058 Problem Acute anemia (D64.9) Active confirmed 2 24189294 VITAL SIGNS Heart Rate 100 /min 03/16/2024 Blood pressure diastolic 90 mm Hg 03/16/2024 Height 62 in 03/16/2024 Blood pressure systolic 123 mm Hg 03/16/2024 Weight 113 lbs 03/16/2024 BMI 20.67 kg/m2 03/16/2024 PROCEDURES Procedure Date Ordered Date Performed Result Body Sit e Inj-Toradol 12/16/2023 N/A Encounters Encounter Location Date Provider Diagnosis [facility] [address] [place] [address], [address] [id number] 09/12/2023 Brenda Almonte Psoriatic arthritis L40.50 ; Spondyloarthropathy M46.90 ; Other group home (current) drug therapy Z79.899 ; Encounter for screening for respiratory tuberculosis Z11.1 ; Crohns disease K50.90 ; Osteoporosis M81.0 ; Encounter for examination of eyes and vision without abnormal findings Z01.00 ; Encounter for other specified special examinations Z01.89 and Dorsalgia M54.9 [facility] [address] [place] [address], [address] [place], [place] [id number] 12/16/2023 Dulcedavid Andrade Psoriatic arthritis L40.50 ; Spondyloarthropathy M46.90 ; Other group home (current) drug therapy Z79.899 ; Encounter for screening for respiratory tuberculosis Z11.1 ; Dorsalgia M54.9 ; Crohns disease K50.90 ; Osteoporosis M81.0 ; Encounter for examination of eyes and vision without abnormal findings Z01.00 and Encounter for other specified special examinations Z01.89 [facility] 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 [address] [facility], [address] [id number] 06/14/2024 Dulce Andrade [facility] [address] [id number] 06/14/2024 Dulce Andrade [facility] [address] [place] [address] [id number] 07/06/2024 Dulce [place] [facility] [address] [place] [address] [id number] 08/20/2024 Dulcedavid Andrade [facility] [address] [place] [address] [id number] 09/19/2023 Brenda Dediallo [facility] [address] [place] [address] [id number] 12/16/2023 Brenda Dehlendorf [facility] [address] [place] [address] [id number] 12/25/2023 Brenda Dehlendorf Elevated LFTs R79.89 and Acute anemia D64.9 [facility] [address] [place] [address] [id number] 01/16/2024 Brenda Dehlendorf Psoriatic arthritis L40.50 [facility] [address] [place] [address] [id number] 02/26/2024 Brenda Dehlendorf [facility] [address] [place] [address] [id number] 03/16/2024 Brenda Dehlendorf [facility] [address] [place] [address] [id number] 03/19/2024 Brenda Dehlendorf [facility] [address] [place] [address] [id number] 04/17/2024 Brenda Dehlendorf Psoriatic arthritis L40.50 [facility] [address], [facility] [address] [place], [place] [id number] 04/17/2024 Brenda Dehlendorf Psoriatic arthritis L40.50 [facility] [address], [address] [id number] 07/16/2024 Brenda Dehlendorf Psoriatic arthritis L40.50 [facility] [address], [address] [id number] 08/31/2023 Brenda Dehlendorf [facility] [address], [address] [id number] 09/16/2023 Brenda Dehlendorf Psoriatic arthritis L40.50 [facility] [address], [address] [id number] 09/26/2023 Brenda Dehlendorf [facility] [address], [address] [id number] 09/26/2023 Brenda Dehlendorf [facility] [address], [address] [id number] 09/26/2023 Brenda Dehlendorf [facility] [address], [address] [id number] 09/29/2023 Brenda Dehlendorf [facility] [address], [address] [id number] 12/02/2023 Brenda Dehlendorf [facility] [address], [address] [id number] 01/17/2024 Brenda Dehlendorf Psoriatic arthritis L40.50 [facility] [address], [address] [id number] 02/24/2024 Brenda Dehlendorf [facility] [address], [address] [id number] 02/24/2024 Brenda Dehlendorf [facility] [address], [address] [id number] 03/16/2024 Brenda Dehlendorf [facility] [address], [address] [id number] 03/16/2024 Brenda Almonte [facility] [address] [place] [address] [id number] 04/15/2024 Brenda Almonte [facility] [address] [place] [address] [id number] 05/09/2024 Brenda Almonte [facility] [address] [place] [address] [id number] 06/11/2024 Brendajihan Almonte [facility] [address] [place] [address] [id number] 06/12/2024 Brendajihan Almonte [facility] [address] [place] [address] [id number] 07/06/2024 Brendajihan Almonte [facility] [address] [place] [address] [id number] 07/19/2024 Brendajihan Almonte [facility] [address] [place] [address] [id number] 08/01/2024 Brenda Almonte [facility] [address] [place] [address] [id number] 08/03/2024 Brenda Almonte Spondyloarthropathy M46.90 [facility] [address] [place] [address] [id number] 08/17/2024 Brenda Almonte [facility] [address] [place] [address] [id number] 08/20/2024 Brenda Almonte [facility] [address] [place] [address] [id number] 08/21/2024 Brenda Almonte ASSESSMENTS Encounter Date Diagnosis Assessment Notes Treatment Notes Treatment Clinical Notes Section Notes 09/12/2023 Psoriatic arthritis (ICD-10 - L40.50) PsA- trying Orencia- failed several TNF's. TB screening regularly. If labs ok, increase MTX a bit. Injections prn. OP per Dr. Murcia. Crohns per GI- on AZA. Eye exam for HCQ. 09/12/2023 Spondyloarthropathy (ICD-10 - M46.90) PsA- trying Orencia- failed several TNF's. TB screening regularly. If labs ok, increase MTX a bit. Injections prn. OP per Dr. Murcia. Bipin per GI- on AZA. Eye exam for HCQ. 12/16/2023 Psoriatic arthritis (ICD-10 - L40.50) Give Toradol 30 mg IM x1 Continue Orencia, HCQ, Imuran and MTX for PsA. She has failed several TNF's. TB screening regularly. OP per Dr. Murcia. Bipin per GI- on AZA. Continue Eye exam for HCQ., Labwork drawn to evaluate disease process and to monitor any adverse effects of medications. 12/16/2023 Spondyloarthropathy (ICD-10 - M46.90) Continue Orencia, HCQ, Imuran and MTX for PsA. She has failed several TNF's. TB screening regularly. OP per Dr. Murcia. Bipin per GI- on AZA. Continue Eye exam for HCQ., Labwork drawn to evaluate disease process and to monitor any adverse effects of medications. 03/16/2024 Psoriatic arthritis (ICD-10 - L40.50) PsA- look into new MOA biologic. Rinvoq vs Acemtra. Using too much Prednisone. Discussed BB warning with REFUGIO's- no hx of DVT/PE. Check labs. LFTs up last time- may need to drop MTX dose a bit. She has failed several TNF's. TB screening regularly. OP per Dr. Murcia's BUSINESS MACHINES TEACHER. Crohnjoseph per GI- on AZA. Cont eye exams for HCQ 03/16/2024 Spondyloarthropathy (ICD-10 - M46.90) PsA- look into new MOA biologic. Rinvoq vs Acemtra. Using too much Prednisone. Discussed BB warning with REFUGIO's- no hx of DVT/PE. Check labs. LFTs up last time- may need to drop MTX dose a bit. She has failed several TNF's. TB screening regularly. OP per Dr. Murcia's BUSINESS MACHINES TEACHER. Crohns per GI- on AZA. 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 TB screening regularly. If labs ok, increase MTX a bit. Injections prn. OP per Dr. Murcia. Bipin per GI- on AZA. Eye exam for HCQ. 12/16/2023 Other group home (current) drug therapy (ICD-10 - Z79.899) Continue Orencia, HCQ, Imuran and MTX for PsA. She has failed several TNF's. TB screening regularly. OP per Dr. Murcia. Bipin per GI- on AZA. Continue Eye exam for HCQ., Labwork drawn to evaluate disease process and to monitor any adverse effects of medications. 03/16/2024 Other group home (current) drug therapy (ICD-10 - Z79.899) PsA- look into new MOA biologic. Rinvoq vs Acemtra. Using too much Prednisone. Discussed BB warning with REFUGIO's- no hx of DVT/PE. Check labs. LFTs up last time- may need to drop MTX dose a bit. She has failed several TNF's. TB screening regularly. OP per Dr. Murcia's BUSINESS MACHINES TEACHER. Bipin per GI- on AZA. Cont eye exams for HCQ 12/25/2023 Elevated LFTs (ICD-1 0 - R79.89) 09/12/2023 Encounter for screening for respiratory tuberculosis (ICD-10 - Z11.1) PsA- trying Orencia- failed several TNF's. TB screening regularly. If labs ok, increase MTX a bit. Injections prn. OP per Dr. Murcia. Bipin per GI- on AZA. Eye exam for HCQ. 12/16/2023 Encounter for screening for respiratory tuberculosis (ICD-10 - Z11.1) Continue Orencia, HCQ, Imuran and MTX for PsA. She has failed several TNF's. TB screening regularly. OP per Dr. Murcia. Crohns per GI- on AZA. Continue Eye exam for HCQ., Labwork drawn to evaluate disease process and to monitor any adverse effects of medications. 03/16/2024 Encounter for screening for respiratory tuberculosis (ICD-10 - Z11.1) PsA- look into new MOA biologic. Rinvoq vs Acemtra. Using too much Prednisone. Discussed BB warning with REFUGIO's- no hx of DVT/PE. Check labs. LFTs up last time- may need to drop MTX dose a bit. She has failed several TNF's. TB screening regularly. OP per Dr. Murcia's BUSINESS MACHINES TEACHER. Crohns per GI- on AZA. Cont eye exams for HCQ 12/25/2023 Acute anemia (ICD-10 - D64.9) 09/12/2023 Crohns disease (ICD- 10 - K50.90) PsA- trying Orencia- failed several TNF's. TB screening regularly. If labs ok, increase MTX a bit. Injections prn. OP per Dr. Murcia. Crohns per GI- on AZA. Eye exam for HCQ. 12/16/2023 Dorsalgia (ICD-10 - M54.9) Continue Orencia, HCQ, Imuran and MTX for PsA. She has failed several TNF's. TB screening regularly. OP per Dr. Murcia. Crohns per GI- on AZA. Continue Eye exam for HCQ., Labwork drawn to evaluate disease process and to monitor any adverse effects of medications. 03/16/2024 Dorsalgia (ICD-10 - M54.9) PsA- look into new MOA biologic. Rinvoq vs Acemtra. Using too much Prednisone. Discussed BB warning with REFUGIO's- no hx of DVT/PE. Check labs. LFTs up last time- may need to drop MTX dose a bit. She has failed several TNF's. TB screening regularly. OP per Dr. Murcia's BUSINESS MACHINES TEACHER. Crohns per GI- on AZA. Cont eye exams for HCQ 09/12/2023 Osteoporosis (ICD-10 - M81.0) PsA- trying Orencia- failed several TNF's. TB screening regularly. If labs ok, increase MTX a bit. Injections prn. OP per Dr. Murcia. Crohns per GI- on AZA. Eye exam for HCQ. 12/16/2023 Crohns disease (ICD- 10 - K50.90) Continue Orencia, HCQ, Imuran and MTX for PsA. She has failed several TNF's. TB screening regularly. OP per Dr. Murcia. Agustinas per GI- on AZA. Continue Eye exam for HCQ., Labwork drawn to evaluate disease process and to monitor any adverse effects of medications. 03/16/2024 Crohns disease (ICD- 10 - K50.90) PsA- look into new MOA biologic. Rinvoq vs Acemtra. Using too much Prednisone. Discussed BB warning with REFUGIO's- no hx of DVT/PE. Check labs. LFTs up last time- may need to drop MTX dose a bit. She has failed several TNF's. TB screening regularly. OP per Dr. Murcia's BUSINESS MACHINES TEACHER. Crohns per GI- on AZA. Cont eye exams for HCQ 09/12/2023 Encounter for examination of eyes and vision without abnormal findings (ICD-10 - Z01.00) PsA- trying Orencia- failed several TNF's. TB screening regularly. If labs ok, increase MTX a bit. Injections prn. OP per Dr. Murcia. Bipin per GI- on AZA. Eye exam for HCQ. 12/16/2023 Osteoporosis (ICD-10 - M81.0) Continue Orencia, HCQ, Imuran and MTX for PsA. She has failed several TNF's. TB screening regularly. OP per Dr. Murcia. Bipin per GI- on AZA. Continue Eye exam for HCQ., Labwork drawn to evaluate disease process and to monitor any adverse effects of medications. 03/16/2024 Osteoporosis (ICD-10 - M81.0) PsA- look into new MOA biologic. Rinvoq vs Acemtra. Using too much Prednisone. Discussed BB warning with REFUGIO's- no hx of DVT/PE. Check labs. LFTs up last time- may need to drop MTX dose a bit. She has failed several TNF's. TB screening regularly. OP per Dr. Murcia's BUSINESS MACHINES TEACHER. Crohns per GI- on AZA. Cont eye exams for HCQ 09/12/2023 Encounter for other specified special examinations (ICD-10 - Z01.89) PsA- trying Orencia- failed several TNF's. TB screening regularly. If labs ok, increase MTX a bit. Injections prn. OP per Dr. Murcia. Bipin per GI- on AZA. Eye exam for HCQ. 12/16/2023 Encounter for examination of eyes and vision without abnormal findings (ICD-10 - Z01.00) Continue Orencia, HCQ, Imuran and MTX for PsA. She has failed several TNF's. TB screening regularly. OP per Dr. Diemer. Voss per GI- on AZA. Continue Eye exam for HCQ., Labwork drawn to evaluate disease process and to monitor any adverse effects of medications. 03/16/2024 Encounter for examination of eyes and vision without abnormal findings (ICD-10 - Z01.00) PsA- look into new MOA biologic. Rinvoq vs Acemtra. Using too much Prednisone. Discussed BB warning with REFUGIO's- no hx of DVT/PE. Check labs. LFTs up last time- may need to drop MTX dose a bit. She has failed several TNF's. TB screening regularly. OP per Dr. Murcia's BUSINESS MACHINES TEACHER. Bipin per GI- on AZA. Cont eye exams for HCQ 09/12/2023 Dorsalgia (ICD-10 - M54.9) PsA- trying Orencia- failed several TNF's. TB screening regularly. If labs ok, increase MTX a bit. Injections prn. OP per Dr. Diemer. Voss per GI- on AZA. Eye exam for HCQ. 12/16/2023 Encounter for other specified special examinations (ICD-10 - Z01.89) Continue Orencia, HCQ, Imuran and MTX for PsA. She has failed several TNF's. TB screening regularly. OP per Dr. Diemer. Voss per GI- on AZA. Continue Eye exam for HCQ., Labwork drawn to evaluate disease process and to monitor any adverse effects of medications. 03/16/2024 Encounter for other specified special examinations (ICD-10 - Z01.89) PsA- look into new MOA biologic. Rinvoq vs Acemtra. Using too much Prednisone. Discussed BB warning with REFUGIO's- no hx of DVT/PE. Check labs. LFTs up last time- may need to drop MTX dose a bit. She has failed several TNF's. TB screening regularly. OP per Dr. Murcia's BUSINESS MACHINES TEACHER. Crohns per GI- on AZA. Cont eye exams for HCQ PLAN OF TREATMENT Pending Test Test Name Order Date X ray : Spines, lumbar- outside order AST (SGOT) 07/01/2018 AST (SGOT) 06/20/2021 AST (SGOT) 10/13/2020 AST (SGOT) 12/25/2023 Creatinine, Serum 10/13/2020 ALT (SGPT) 12/25/2023 ALT (SGPT) 10/13/2020 ALT (SGPT) 07/01/2018 ALT (SGPT) 06/20/2021 CBC With Differential/Platelet 4 CBC With Differential/Platelet 1 CBC With Differential/Platelet 2 Sed Rate - Westergren 10/13/2020 C-Reactive Protein, Quant 10/13/2020 Joint Injection - CMC, LEFT 04/14/2020 Joint Injection - knee, left 10/22/2014 INJ TRIAMCINOLONE ACETONIDE 10 MG 2021 INJ TRIAMCINOLONE ACETONIDE 10 MG 2018 INJ TRIAMCINOLONE ACETONIDE 10 MG 2018 INJ TRIAMCINOLONE ACETONIDE 10 MG 2022 Joint Injection - MCP, LEFT 03/05/2015 Joint Injection - MCP, LEFT 04/14/2020 Joint Injection - CMC, RIGHT 07/13/2012 Joint Injection - CMC, RIGHT 01/25/2013 Joint Injection - CMC, RIGHT 07/16/2019 Joint Injection - PIP, RIGHT 07/13/2012 Joint Injection - PIP, RIGHT 07/30/2015 Joint Injection - MCP, RIGHT 02/08/2018 Joint Injection - MCP, RIGHT 11/14/2020 Joint Injection - MCP, RIGHT 06/22/2016 Joint Injection - MCP, RIGHT 10/22/2014 Joint Injection - MCP, RIGHT 08/17/2017 Joint Injection - MCP, RIGHT 03/29/2018 Joint Injection - MCP, RIGHT 03/05/2015 Joint Injection - MCP, RIGHT 01/25/2013 Joint Injection - MCP, RIGHT 01/21/2014 Joint Injection - MCP, RIGHT 11/03/2011 Joint Injection - MCP, RIGHT 07/30/2015 Joint Injection - MCP, RIGHT 07/16/2019 Joint Injection-wrist, right 07/16/2019 Joint Injection-wrist, right 02/08/2018 Joint Injection-wrist, right 11/14/2020 Joint Injection-wrist, right 08/17/2017 X ray : SI joints- outside order 023 QUANTIFERON(R)-TB GOLD-quest only 2017 Inj-Toradol 01/03/2023 Inj-Toradol 02/19/2022 Inj-Toradol 03/29/2018 Inj-Toradol 12/16/2023 Inj-Toradol 06/27/2018 Eye exam - Plaquenil 04/14/2020 Lab slip given 02/08/2018 Lab slip given 10/13/2020 -Xray slip given 01/03/2023 Future Test Test Name Order Date AST (SGOT) 11/12/2019 Creatinine, Serum 11/12/2019 ALT (SGPT) 11/12/2019 CBC With Differential/Platelet 0 Lab slip given 11/12/2019 AST (SGOT) 01/25/2023 ALT (SGPT) 01/25/2023 AST (SGOT) 01/09/2024 ALT (SGPT) 01/09/2024 CBC With Differential/Platelet 4 Next Appt Details Provider Name:Dulce Andrade, 08/30/2024 03:00:00 PM, [address], [address], [place], [place], [phone], Insurance Providers Payer Name Payer Address Payer Phone Subscriber Number Group Number Insured Name Patient Relationship to Insured Coverage Start Date Coverage End Date [facility] [address] [address] [place] [address] [id number] Ina Ferguson Self - patient is the insured 5 [employer] [address] [address] [place] [id number] Ina Ferguson Self - patient is the insured 5 MEDICAL (GENERAL) HISTORY Medical History History ICD Code CATARACTS GLAUCOMA Anemia Epiphyseal dysplasia IBS GERD ULCER HOT FLASHES ANXIETY/DEPRESSION Surgical History Surgery Date(Month/Year) right hip 04/2019 rotator cuff tear repair colonoscopy and edg 03/2015 shoulder surgery,right rotator cuff 2013 Right ankle x 3 2010 Right elbow 1996 Right ankle fusion 1994 LEFT TOTAL HIP 2002 GALL BLADDER 2000 ARTHOSCOPIC ON BOTH KNEES 1987,1988 1984
--- OUTSIDE RECORDS SUMMARY | 2024-08-29 17:50 | XMS_ITS | Clinical Summary ---
Author Organization [facility] Address [address] [place] [address] Care Team Providers Care Transportation Maintenance Operator Name Role Phone Maximiliano Jolley MD Primary Care Provider [phone] Social History Tobacco Use Types Packs/Day Years [...] age to complete this topic Care Teams Transportation Maintenance Operator Relationship Specialty Start Date End Date Maximiliano Jolley MD PCP - General 10/09/14
--- OUTSIDE RECORDS SUMMARY | 2024-08-29 17:50 | XMS_ITS ---
Author Organization [facility] Address [address] [place], [place] [id number] Care Team Providers Care Event Sales Representative Name Role Phone JOSHUA, HALIMA Primary Care Provider UnavailBrenda Wolfe Unavailable [phone] Unavailable Unavailable REASON FOR VISIT Mistake Encounters Encounter Location Date Provider Diagnosis [facility] [address] [place], [place] [phone] 08/21/2024 Brenda Almonte PLAN OF TREATMENT Next Appt Details Provider Name:Dulcedavid Solispascale, 08/30/2024 03:00:00 PM, [address], [address], [place], [place], [phone],
--- OUTSIDE RECORDS SUMMARY | 2024-08-29 17:50 | XMS_ITS ---
Author Organization [facility] Address [address] [place], [place] [phone] Care Team Providers Care Train Planner Name Role Phone JOSHUA, HALIMA Primary Care Provider Unavailabl Brenda Crooks Unavailable [phone] Unavailable Unavailable REASON FOR VISIT New Refill Request Encounters Encounter Location Date Provider Diagnosis [facility] [address], [address] [place], [place] [phone] 08/20/2024 Brenda Almonte PLAN OF TREATMENT Next Appt Details Provider Name:Dulcedavid Solispascale, 08/30/2024 03:00:00 PM, [address], [address], [place], [place], [phone],
--- OUTSIDE RECORDS SUMMARY | 2024-08-29 17:51 | XMS_ITS | Clinical Summary ---
Author Organization [facility] Address [address] [place] [address] Care Team Providers Care Major Assembler Name Role Phone Genet Patel NP Primary Care Provider [phone] Allergies Active Allergy Reactions Criticality Noted Date [...] mg tablet 6 tabs 9 Active multivit-iron- HP-amzbspx-jef s (One-A-Day Womens Formula) 18 mg iron-400 [...] on file Legal Sex Female 2:31 AM PHARMACEUTICAL SERVICE REPRESENTATIVE Gender Identity Not on file Sexual Orientation Not on file Obstetrics History Para Term AB IAB SAB Ectopic Multiple Livin g Live Births 1 1 1 Date Outcome GA Total Labor Labor/2nd/3rd Weight Sex Type Anes PTL Mouna A1 A5 Name Clin Term Last Filed Vital Signs Vital Sign Reading Time Taken Comments Blood Pressure 121/79 03/30/2016 2:29 PM PHARMACEUTICAL SERVICE REPRESENTATIVE Pulse 99 03/30/2016 2:29 PM PHARMACEUTICAL SERVICE REPRESENTATIVE Temperature - - Respiratory Rate - - Oxygen Saturation - - Inhaled Oxygen Concentration - - Weight 47.6 kg (105 lb) 06/13/2023 12:30 PM CDT Height 149.9 cm (4' 11) 06/13/2023 12:30 PM CDT Body Mass Index [...] by the International Society of Clinical Densitometry. [id number] Rima Murcia MD IMG DXA PROCEDURES Final [...] age 40, based on guidelines of the [employer] [place] [employer] (ACR Practice Parameter for the Performance of Screening and Diagnostic Mammography) and [place] [employer]. For women [...] Most Recently Relevant to Health Maintenance Insurance [facility] MEDICARE RAILROAD MEDICARE RAILROAD [facility] MEDICARE RAILROAD IDPA Care Teams Major Assembler Relationship Specialty Start Date End Date Genet Patle NP [address] [place], [place] [id number] PCP - General Nurse Practitioner 06/06/24
--- OUTSIDE RECORDS SUMMARY | 2024-08-29 17:51 | XMS_ITS | Referral Summary ---
Author Organization [facility] Address [address] [place] [address] Care Team Providers Care Scientific Programmer Name Role Phone Genet Patel NP Primary Care Provider Allergies Active Allergy Reactions Criticality Noted Date [...] mg tablet 6 tabs 9 Active multivit-iron- TJ-mdmewhq-ebl s (One-A-Day Womens Formula) 18 mg iron-400 [...] on file Legal Sex Female 2:31 AM INFORMATION SUPPORT PROJECT MANAGER Gender Identity Not on file Sexual Orientation Not on file Last Filed Vital Signs Vital Sign Reading Time Taken Comments Blood Pressure 121/79 03/30/2016 2:29 PM INFORMATION SUPPORT PROJECT MANAGER Pulse 99 03/30/2016 2:29 PM INFORMATION SUPPORT PROJECT MANAGER Temperature - - Respiratory Rate - - [...] Bone mineral density was performed on a [employer] Discovery Densitometer. Based on machine cross-calibration and [...] by the International Society of Clinical Densitometry. [id number] us Rima Murcia MD IMG DXA PROCEDURES [...] age 42, based on guidelines of the [place] [employer] (ACR Practice Parameter for the Performance of Screening and Diagnostic Mammography) and [place] [employer]. For women [...] been no suspicious change. Ricky Ballesteros MD IM MAMMO PROCEDURES Final Resul t from Last 3 Months or Most Recently Relevant to Health Maintenance Insurance [employer] MEDICARE RAILROAD MEDICARE RAILROAD IDPA MEDICARE RAILROAD IDPA Care Teams Scientific Programmer Relationship Specialty Start Date End Date WintereGnet NP [address] [facility] [address] [facility] [address] [place], [place] [id number] PCP - General Nurse Practitioner 06/06/24
--- OUTSIDE RECORDS SUMMARY | 2024-08-29 17:51 | XMS_ITS ---
Author Organization [facility] Address [address] [place], [place] [phone] Care Team Providers Care Sewage Plant Attendant Name Role Phone JOSHUA HALIMA Primary Care Provider UnavailBrenda Wolfe Unavailable [phone] Unavailable Unavailable Dulce Andrade Unavailable [phone] ALLERGIES Allergen (clinical drug ingredient) Drug/Non Drug Allergy documented on EMR Reaction Allergy Type Onset Date Status codeine codeine rash, headache Drug Allergy Ac tive MEDICATIONS Medication SIG (Take, Route, Frequency, Duration) Notes Start Date End Date Status Voltaren Topical 1% APPLY TWO GRAMS TOPICALLY TWICE DAILY to hands and wrist for 30 days Active Methotrexate Sodium 2.5MG 8 tabs orally once a week for 28 days Active traMADol 50 mg 1-2 tab(s) orally 4 times a day for 30 days 07/16/2024 Active Rinvoq 15 mg Take 1 tablet by lucero once daily for 30 Active CeleBREX 200MG 1 cap oral 2 times a day for 90 days Active predniSONE 5 mg 1 tab(s) orally ever y other day for 30 day(s) Active Hydroxychloroquine Sulfate 200 mg 1 tab(s) orally once a day for 90 days Active folic acid 1 mg 1 tab(s) orally once a day Active Orencia ClickJect 125 mg/mL INJECT 1 SYR ESTELA SUBCUTANEOUSLY ONCE A WEEK subcutaneously once a week for 28 days Active iron as directed oral Act prashanth Vitamin C 500 mg 1 cap(s) orally once a day Active Lexapro 10 mg 1 tab(s) orally once a day Active Align every day Active Clobetasol (Eqv-Temovate E) Active fish oil as directed oral onc e a day Active Carafate 1 g 1 tab(s) orally 4 ti mes a day (before meals and at bedtime) Active Vitamin B12 1000 mcg 1 tab(s) orally onc e a day Active One-A-Day Women Multiple Vitamins with Minerals 1 tab(s) orally once a day Active Fiber daily Active Vitamin D3 1000 intl units 1 tab(s) oral ly once a day Active Calcium 600+D 1 tab(s) orally 1 ti mes a day Active Reclast 5 mg/100 mL 0 intravenously once Active Imuran 50 mg TAKE 1 TABLET BY LUCERO TH ONCE DAILY Active Encounters Encounter Location Date Provider Diagnosis [facility] [address] [facility], [facility] [address] [place], [place] [phone] 08/20/2024 Dulce Andrade PLAN OF TREATMENT Next Appt Details Provider Name:Dulce Andrade, 08/30/2024 03:00:00 PM, [address], [address], [place], [place], [phone],
[2024-08-29 17:52] LABS: Influenza A QL RT-PCR Negative (Negative); Influenza B QL RT-PCR Negative (Negative); RSV RNA, RT-PCR Negative (Negative); SARS-CoV-2 RNA PCR Negative (Negative)
[2024-08-29 18:35] LABS: Alveolar/Arterial O2 Gradient 83.2 mmHg; Carboxyhemoglobin 1.0 % THb (0-2.0); Fractional Inspired Oxygen 28 %; HCO3 ABG 15.6 mEq/l (22.0-26.0); Liters per Minute 2.0 LPM; Methemoglobin ABG 0.3 %THb (0-1.5); Modified Allen's Test Pass; Oxygen Content ABG 11.1 %vol (16.0-22.0); Oxygen Saturation ABG 96.4 % (95.0-100.0); PCO2 ABG 27.0 mmHg (35.0-45.0); PO2 ABG 84.6 mmHg (80.0-100.0); PO2 FiO2 Ratio Arterial Blood 3.02 %; Reduced Hemoglobin 5.1 %THb (0-5.0); Site Drawn RIGHT RADIAL
[2024-08-29] MEDS: AZITHROMYCIN 500 MG/NS 250 ML 500 MG/250 ML BAG 250 MG IVPB (19:06)
--- NOTE | 2024-08-29 19:25 | PC.NURSE ---
Introduced self to patient and family. Bedside report received from Kemi MACE. IV infusing, remains on track repair person.
--- NOTE | 2024-08-29 19:58 | P.HP_ITS ---
H&P: HPI History of Present Illness Date/Time: 08/29/24 19:58 Chief Complaint: Altered mental status Narrative: 68-year-old female with a complex past medical history including, but not limited to, rheumatoid arthritis, Crohn's disease, GERD with history of ulcers, osteoporosis on chronic immunosuppressive therapy who presented to the ER via EMS due to altered mental status. Source of information comes from patient's ex- and review of past medical records as the patient is confused and currently a poor historian. Patient's ex- reports that he did not notice the patient being ill recently but she had had an ulcer to her left buttock that is been ongoing for 6 or 8 weeks. He reports she went and saw solar panel installation supervisor a few weeks back and was started on a medication. On review of July occasion record it appears the patient has been on and off valacyclovir since June. I presume the patient being treated for presumed shingles outbreak. Patient herself reports she has been having ulcers over labia for a couple of weeks. Patient's reports that the ulcer for buttock initially started about the size of a nickel in currently at the time my evaluation was the size of a softball. She also has some decubitus appearing ulcers in the buttock crease. Patient reports she has been coughing for ?a few days?. reports that he has not noticed her having any increased cough or shortness of breath. He walked into her bedroom a couple of hours after she would usually get up in the patient was bent over the bed with her legs on the floor. He asked her if she was okay in the patient with speaking gibberish. When he stated that he was going to call the ambulance the patient then asked her if he was okay. She then repetitively asked him if he was okay. On EMS arrival to her home a found the patient to be hypoglycemia with glucoses in the 40s. Patient received 250 mL of D10 EN route to the hospital initial glucose on BMP was 131. Repeat glucose couple of hours later was down to 29. Patient was febrile on arrival to the hospital with T-max of 100.9?. She denied any nausea or vomiting. She did report sensation of incomplete bladder emptying. Bedside bladder scan demonstrated a greater than 377 mL in patient had tenderness in the suprapubic region with palpable bladder distention. No hypoxia was directly documented from the ER but patient arrived to the floor on 2 L nasal cannula and was mildly tachypneic. Patient was found to be in severe sepsis with tachypnea, tachycardia, fever and transaminitis with severe lactic acidosis. Imaging demonstrated multifocal pneumonia. On arrival to the IMU patient's glucose had dropped again down to 75. Patient did not have history of diabetes. Patient was alert oriented x1 on initial arrival to the ER at the time my evaluation the patient is alert oriented to person, place and year but confused as to month and cannot give much information regarding recent symptoms. Review of Systems 2 Review of Systems: Review of systems was attempted but limited due to patient's confusion. [facility] Past Medical History Medical History (Updated 08/29/24 @ 23:01 by Le Friedman DO) Depression Anxiety Hypovitaminosis D Chronic ethmoidal sinusitis Left knee DJD Chronic right shoulder pain Left shoulder pain Anemia Immunosuppressed status Osteoarthritis Glaucoma Iron deficiency anemia Crohn's disease Gastroesophageal reflux disease Mixed hyperlipidemia Osteoporosis Psoriatic arthritis RLS (restless legs syndrome) Rheumatoid arthritis Surgical History Surgical History (Updated 08/29/24 @ 22:41 by Le Friedman DO) Status post cataract extraction of both eyes with insertion of intraocular lens S/P total knee arthroplasty LT TKA 05/18/23 Status post bilateral total hip replacement Status post ankle fusion With subsequent hardware removal and redo. Status post rotator cuff repair Bilateral. Status post cholecystectomy History of section Status post total right knee replacement History of temporal artery biopsy In October 2016. No pathologic abnormalities noted. Family History Family History Mother Family history of osteoporosis Cerebrovascular accident Family history of Alzheimer's disease Family history of coronary artery disease Acute myocardial infarction Family history of malignant melanoma Family history of malignant neoplasm of ovary Heart disease Father Family history of coronary artery disease Family history of heart disease in male family member before age 55 Family history of lung cancer, Onset Age: 48 Sibling Family history of lung cancer Family history of malignant melanoma Family history of malignant neoplasm of urinary bladder Heart disease Sibling Cancer Heart disease Other Family history of malignant neoplasm Hypertension Social History Social History (Updated 08/29/24 @ 22:37 by Le Friedman DO) Social History: The patient lives in [place] with her ex . They have been since 2006 but still live in the same home. They have 2 dogs that are mostly outside. 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 She is a lifelong nonsmoker and denies alcohol and drug abuse. She and her have 1 son. Code status: Full code Surrogate decision maker: Ex- and Debra (daughter in-law) Smoking status: Never smoker Additional smoking assessment comments: DENIES ANY FORM OF TOBACCO USE Alcohol intake: current Alcohol use details: Rare alcohol use once or twice a year Substance use: never Substance use type: does not use Do You Feel Safe in your Home?: Yes Lack of Transportation: No Lack of Food: Never True Current Housing: I Have Housing Concerned About Future Housing: No Difficulty Paying Gas/Electric Bills: No Difficulty Paying for Meds: No Currently Unemployed: No Education: Don't Know Difficulty w/ Childcare or Family Care: No Living arrangements: with family Occupation/Education: retired Gender identity (if verbalized by the patient): Female Sexual Orientation (if Verbalized by the Patient): Straight or Heterosexual Spiritual care concerns: No Agree to blood products: Yes Meds Home Medications and Allergies Home Medications ?Medication ?Instructions ?Recorded ?Confirmed ?Type ascorbic acid (vitamin C) 1,000 mg 1 gm PO DAILY 04/26/19 07/30/24 History tablet celecoxib 200 mg capsule 200 mg PO BID 04/26/19 07/30/24 History cholecalciferol (vitamin D3) 25 1,000 unit PO DAILY 04/26/19 07/30/24 History mcg (1,000 unit) capsule ferrous sulfate 325 mg (65 mg 325 mg PO DAILY 04/26/19 07/30/24 History iron) tablet (Feosol) folic acid 1 mg tablet 1 mg PO DAILY 04/26/19 07/30/24 History lactobacillus combination no.8 3 3,000 mmu cells PO DAILY 04/26/19 07/30/24 History billion cell capsule (Adult Probiotic) multivitamin 1 tablet PO DAILY 04/26/19 07/30/24 History magnesium 250 mg tablet 250 mg PO DAILY 03/04/20 07/30/24 History zinc 50 mg tablet 50 mg PO DAILY 03/04/20 07/30/24 History methotrexate sodium 2.5 mg tablet 2.5 mg PO .COMPLEX 01/21/21 07/30/24 History esomeprazole magnesium 40 mg 40 mg PO DAILY 02/03/22 07/30/24 History capsule,delayed release (Nexium) melatonin 10 mg capsule 10 mg PO DAILY PRN Insomnia 08/26/22 07/30/24 History tramadol 50 mg tablet 50 mg PO Q6H PRN Pain 01/27/23 07/30/24 History calcium 600 mg (as 1 tablet PO DAILY 05/04/23 07/30/24 History carbonate)-vitamin D3 10 mcg (400 unit) tablet (Calcium 600 + D(3)) hydroxychloroquine 200 mg tablet 200 mg PO DAILY 05/04/23 07/30/24 History sucralfate 1 gram tablet 1 g PO BID 05/04/23 07/30/24 History dextromethorphan-guaifenesin 30 See Rx Instructions PO Q12H PRN 06/21/23 07/30/24 Rx mg-600 mg tablet extended cough #30 tabs [id number] hr (Mucinex DM) fexofenadine 60 mg tablet (Glendy 60 mg PO Q12H 09/05/23 07/30/24 History Allergy) fluticasone propionate 50 1 spray intranasal PRN PRN Allergy 10/26/23 07/30/24 Rx mcg/actuation nasal Symptoms #16 grams spray,suspension prednisolone sodium phosphate 1 % 1 drp RIGHT EYE Q12H concern for 12/27/23 07/30/24 Rx eye drops glaucoma #10 mL escitalopram oxalate 20 mg tablet See Rx Instructions .Route 05/29/24 07/30/24 Rx .COMPLEX #90 tabs upadacitinib 15 mg tablet,extended 15 mg PO DAILY 05/29/24 07/30/24 History release 24 hr (Rinvoq) betamethasone valerate 0.1 % 1 applic topical BID #15 grams 07/19/24 07/30/24 Rx topical ointment alprazolam 0.5 mg tablet 0.5 mg PO BID PRN anxiety #60 tabs 07/30/24 07/30/24 Rx Allergies Allergy/AdvReac Type Severity Reaction Status Date / Time adalimumab Allergy Mild Itching Verified 08/07/24 11:55 codeine AdvReac Mild Itching Verified 08/07/24 11:55 Vital Signs Vital Signs - 24 hr 08/29/24 16:25 08/29/24 16:41 08/29/24 16:45 Temperature 100.9 F H Pulse Rate 140 H 140 H 140 H Respiratory Rate 22 H 32 H 20 Blood Pressure 110/72 110/72 120/76 Pulse Oximetry 95 Oxygen Delivery Room Air Oxygen Flow Rate 08/29/24 17:02 08/29/24 17:08 08/29/24 17:13 Temperature Pulse Rate 147 H 132 H Respiratory Rate 21 H 16 Blood Pressure 79/56 L 111/73 Pulse Oximetry 92 Oxygen Delivery Nasal Cannula Oxygen Flow Rate 2 08/29/24 17:15 08/29/24 17:24 08/29/24 17:30 Temperature Pulse Rate 126 H 122 H 123 H Respiratory Rate 20 26 H Blood Pressure 114/87 125/78 Pulse Oximetry 95 100 Oxygen Delivery Oxygen Flow Rate 08/29/24 17:45 08/29/24 18:00 08/29/24 18:15 Temperature Pulse Rate 124 H 122 H 122 H Respiratory Rate 24 H 18 25 H Blood Pressure 121/75 117/67 120/69 Pulse Oximetry Oxygen Delivery Oxygen Flow Rate 08/29/24 18:30 08/29/24 18:45 08/29/24 19:02 Temperature 99.2 F Pulse Rate 120 H 121 H 121 H Respiratory Rate 28 H 27 H Blood Pressure 123/79 121/69 114/84 Pulse Oximetry 24 L Oxygen Delivery Oxygen Flow Rate 08/29/24 19:45 Temperature Pulse Rate 123 H Respiratory Rate 27 H Blood Pressure 117/79 Pulse Oximetry Oxygen Delivery Oxygen Flow Rate Exam 2 Narrative: Weight 51.6 kg BMI 21.5 Const: Other: Acutely ill-appearing, appears stated age HENMT: Other: Head is normocephalic atraumatic, mucous membranes are dry, fair dentition Eyes: Other: Pupils are equal and reactive, positive conjunctival pallor, no scleral icterus, lens implants noted bilateral Neck: Other: No JVD, no lymphadenopathy Resp: Other: Coarse crackles bilateral anterior craven, clear posterior craven, moderate tachypnea Cardio: Other: Sinus tachycardia,, 1+ bilateral radial and pedal pulses, no murmur GI: Other: Distended, suprapubic tenderness, lower abdominal midline scar, positive bowel sounds : Other: Ulcers to the right labia that started bleeding after I removed the pure wick catheter that had adhered to the ulcers Skin: Other: Generalized pallor, non jaundice, no petechiae 4-5 second cap refill, scabs to anterior shins bilaterally, ulcer to the left upper buttock the size of a baseball with fat layer exposed, ulcer to the buttock crease 2 or 3 small ulcers sites of the head of a pencil eraser Neuro: Other: Patient is alert awake and alert but slow to respond, cranial nerves 2-12 appear to be grossly intact, oriented to person, place and year, confused as to the month, can not name the current president Extrem: Other: Left ankle is fused, bilateral knee replacements noted bilateral surgical scars on the hips as well, no cyanosis, no edema Psych: Other: Pleasantly confused, cooperative H&P: Results Labs Labs: Laboratory Tests 08/29/24 17:08 08/29/24 17:08 08/29/24 08/29/24 08/29/24 17:08 18:28 19:10 WBC 9.2 RBC 3.06 L Hgb 9.3 L Hct 29.5 L MCV 96.4 MCH 30.4 MCHC 31.5 L RDW 24.3 H Plt Count 495 H MPV 9.8 Immature Gran % (Auto) Not Reportable Neut % (Auto) Not Reportable Lymph % (Auto) Not Reportable [place] % (Auto) Not Reportable Eos % (Auto) Not Reportable Baso % (Auto) Not Reportable Lymph # (Auto) Not Reportable [place] # (Auto) Not Reportable Eos # (Auto) Not Reportable Baso # (Auto) Not Reportable Abs Immat Gran (auto) Not Reportable Absolute Neuts (auto) Not Reportable Absolute Nucleated RBC Not Reportable Total Counted 100 Neutrophils % (Manual) 74 H Band Neutrophils % 10 H Lymphocytes % (Manual) 7.0 L Monocytes % (Manual) 8 Basophils % (Manual) 1 Nucleated RBC % Not Reportable Abs Neuts (Manual) 7.72 H Abs Lymphs (Manual) 0.64 L Abs Monocytes (Manual) 0.73 Abs Basophils (Manual) 0.09 Platelet Estimate Increased Hypochromasia 1+ Anisocytosis 3+ Schistocytes None seen PT 16.5 H INR 1.3 APTT 41.0 H Puncture Site Right radial ABG pH 7.380 ABG pCO2 27.0 L ABG pO2 84.6 ABG PO2/FiO2 Ratio 3.02 ABG HCO3 15.6 L ABG O2 Saturation 96.4 ABG O2 Content 11.1 L ABG Base Excess -8.5 A-a Gradient 83.2 Oxyhemoglobin 93.6 Carboxyhemoglobin 1.0 Methemoglobin 0.3 Reduced Hemoglobin 5.1 H Total Hemoglobin 8.3 L O2 Delivery Device Nasal cannula O2 Liters/Min 2.0 FiO2 28 Sodium 134 L Potassium 3.1 L Chloride 98 Carbon Dioxide 19 L Anion Gap 17 H BUN 18 H Creatinine 1.53 H Estim Creat Clear Calc 24 Estimated GFR 34 L Glucose 131 H POC Capillary Glucose 29 L* Lactic Acid 8.4 H* Calcium 8.6 Total Bilirubin 0.3 AST 122 H ALT 54 H Alkaline Phosphatase 127 H Total Protein 5.3 L Albumin 2.9 L Urine Color Dark yellow Urine Appearance Turbid H Urine pH 5.0 Ur Specific [place] 1.022 Urine Protein 2+ H Urine Glucose (UA) Negative Urine Ketones Trace H Ur Blood (Man) 3+ H Urine Nitrate Negative Urine Bilirubin 1+ H Urine Urobilinogen 1.0 Leukocyte Esterase Rfl Trace H Urine RBC 21-50 H Urine WBC 6-10 H Ur Squamous Epith Cells Many H Urine Bacteria 2+ H Urine Casts >20 Hyaline Casts Present Influenza A (RT-PCR) Negative Influenza B (RT-PCR) Negative RSV (RT-PCR) Negative SARS-CoV-2 RNA (RT-PCR) Negative 08/29/24 08/29/24 08/29/24 19:12 19:14 19:44 WBC RBC Hgb Hct MCV MCH MCHC RDW Plt Count MPV Immature Gran % (Auto) Neut % (Auto) Lymph % (Auto) [place] % (Auto) Eos % (Auto) Baso % (Auto) Lymph # (Auto) [place] # (Auto) Eos # (Auto) Baso # (Auto) Abs Immat Gran (auto) Absolute Neuts (auto) Absolute Nucleated RBC Total Counted Neutrophils % (Manual) Band Neutrophils % Lymphocytes % (Manual) Monocytes % (Manual) Basophils % (Manual) Nucleated RBC % Abs Neuts (Manual) Abs Lymphs (Manual) Abs Monocytes (Manual) Abs Basophils (Manual) Platelet Estimate Hypochromasia Anisocytosis Schistocytes PT INR APTT Puncture Site ABG pH ABG pCO2 ABG pO2 ABG PO2/FiO2 Ratio ABG HCO3 ABG O2 Saturation ABG O2 Content ABG Base Excess A-a Gradient Oxyhemoglobin Carboxyhemoglobin Methemoglobin Reduced Hemoglobin Total Hemoglobin O2 Delivery Device O2 Liters/Min FiO2 Sodium Potassium Chloride Carbon Dioxide Anion Gap BUN Creatinine Estim Creat Clear Calc Estimated GFR Glucose POC Capillary Glucose 30 L* 73 Lactic Acid 3.3 H Calcium Total Bilirubin AST ALT Alkaline Phosphatase Total Protein Albumin Urine Color Urine Appearance Urine pH Ur Specific [place] Urine Protein Urine Glucose (UA) Urine Ketones Ur Blood (Man) Urine Nitrate Urine Bilirubin Urine Urobilinogen Leukocyte Esterase Rfl Urine RBC Urine WBC Ur Squamous Epith Cells Urine Bacteria Urine Casts Hyaline Casts Influenza A (RT-PCR) Influenza B (RT-PCR) RSV (RT-PCR) SARS-CoV-2 RNA (RT-PCR) Impressions Chest X-Ray 08/29/24 17:47 IMPRESSION: Severe multifocal pneumonia versus pulmonary edema, less likely EKG obtained after admission due to increased tachycardia demonstrated sinus tachycardia. All imaging and EKGs personally reviewed and interpreted. And unless stated otherwise agree with radiologic and cardiology interpretation. Assessment and Plan Assessment and plan (1) Sepsis: Qualifiers: Sepsis type: sepsis due to unspecified organism Sepsis acute organ dysfunction status: with acute organ dysfunction Severe sepsis acute organ dysfunction type: encephalopathy Severe sepsis shock status: without septic shock Qualified Code(s): A41.9 - Sepsis, unspecified organism; R65.20 - Severe sepsis without septic shock; G93.41 - Metabolic encephalopathy Code(s): A41.9 - Sepsis, unspecified organism Status: Acute (2) Pneumonia: Qualifiers: Pneumonia type: due to unspecified organism Laterality: bilateral Lung location: unspecified part of lung Qualified Code(s): J18.9 - Pneumonia, unspecified organism Code(s): J18.9 - Pneumonia, unspecified organism Status: Acute (3) FRANK (acute kidney injury): Code(s): N17.9 - Acute kidney failure, unspecified Status: Acute (4) Open wound of genital labia: Qualifiers: Encounter type: initial encounter Qualified Code(s): S31.40XA - Unspecified open wound of vagina and vulva, initial encounter Code(s): S31.40XA - Unspecified open wound of vagina and vulva, initial encounter Status: Acute (5) Wound of left buttock: Qualifiers: Encounter type: initial encounter Qualified Code(s): S31.829A - Unspecified open wound of left buttock, initial encounter Code(s): S31.829A - Unspecified open wound of left buttock, initial encounter Status: Acute (6) Abnormal urinalysis: Code(s): R82.90 - Unspecified abnormal findings in urine Status: Acute (7) Hypokalemia: Code(s): E87.6 - Hypokalemia Status: Acute (8) Acute metabolic encephalopathy due to hypoglycemia: Code(s): G93.41 - Metabolic encephalopathy; E16.2 - Hypoglycemia, unspecified Status: Acute (9) Urinary retention with incomplete bladder emptying: Code(s): R33.9 - Retention of urine, unspecified Status: Acute (10) Acute on chronic anemia: Code(s): D64.9 - Anemia, unspecified Status: Acute Plan The patient has severe sepsis with extensive bilateral pneumonia complicated by acute hypoxic respiratory failure and acute kidney injury. The patient lactic acidosis has improved somewhat with IV fluid hydration but is still present. She has been started empiric antibiotic therapy with Rocephin and azithromycin. Blood cultures have been obtained and are pending. MRSA screen has been obtained. Patient's is hypoxic. I would not be surprised if the patient's condition decompensates for before improving due to severity of illness. The patient's case was discussed with the patient's ex- outside the patient's room with the patient's permission. She has significant hypo glycemia. The patient has been started on D5 containing fluids at the time of my evaluation will check Accu-Cheks q.2 hours until glucose is consistently above 100 then will spread out Accu-Cheks subsequently. Hypoglycemia protocol has been ordered. Patient does not have known diabetes or problems with glucose control. But patient does have severe hypoalbuminemia suggesting severe protein calorie malnutrition. Will provide nutritional supplements when more clinically stable. Patient is currently on a regular diet. Patient does have acute hypoxic respiratory failure does not have underlying history of lung disease. Respiratory failures due to severe bilateral pneumonia in an immunocompromised patient. Will check MRSA screen and adjust antibiotics. Patient's viral PCR was negative. Will obtain a CT of the abdomen pelvis to rule out other source of sepsis. CT of the abdomen pelvis was personally reviewed and demonstrated severe bilateral multifocal pneumonia. Radiologic interpretation was reviewed. Patient does have evidence of fecal cholestasis which may be part of why she was having abdominal pain but abdominal pain also improved after placement of [place] catheter to treat urinary retention. Will monitor strict I&O's given acute kidney injury. Will hold any nephrotoxic medications. Will hold the patient's immunosuppressive therapy. Will repeat CBC and CMP in a.m.. The patient does have some chronic mild transaminitis but acutely worsened. This is likely due to the severe sepsis. Patient will be continued on maintenance IV fluids and will repeat lactic acid level. Patient does have marked bandemia with repeat CBC ordered for a.m.. Patient does have hypokalemia and did receive 40 mEq replacement in the ER. Magnesium level was lower limit of normal. Will give 2 g magnesium sulfate rider. The patient's ex- does not know the patient's home medications and the patient cannot give us an accurate list at this time. Subsequently med rec has not yet been reconciled. 65 minute spent in critical care activities. Patient condition: Critical Prognosis: Fair Quality VTE Prophylaxis VTE prophylaxis: pharmacologic ordered (Heparin 5000 units subQ q.12 hours) Hospitalist [facility] Advance Care Plan I have confirmed that the patient's Advanced Care Plan is present, code status is documented, or surrogate decision maker is listed in patient medical record.: Yes Medication Reconciliation I have utilized all available resources to obtain, update and review the patients current medications (includes all prescriptions, OTC, herbals, cannabis, and nutritional supplements).: Yes
[2024-08-29] MEDS: POTASSIUM CHLORIDE INJ 40 MEQ in SODIUM CHLORIDE 0.9% IV 500 ML 130 MEQ IVPB (20:42)
[2024-08-29 21:14] LABS: Magnesium 1.6 mg/dL (1.6-2.3)
--- NOTE | 2024-08-29 21:41 | ADMGEN ---
This patient, Ina Garcia, was admitted to IMU Room 204-01. Patient/family oriented to hospital policies and general routines including ID bracelet, bed and alarms, visiting hours, pain management, procedures, bathroom and other care routines, personal items, smoking policy, room service/diet, and visiting hours. Information on how to activate the Rapid Response Team has been discussed. Patient/Family are encouraged to report perceived risks to care and to ask questions if they do not understand what they are told or what they should do.
[2024-08-29] MEDS: DEXTROSE 50% 25 GM/50 ML SYRINGE IV PUSH ×2 (22:29→23:59)
[2024-08-29] MEDS: DEXTROSE 5%/0.9% SOD CHL 1,000 ML 150 ML IV CONT (22:33)
--- NOTE | 2024-08-29 22:45 | ECG_ITS ---
Test Date: 2024-08-29 22:59:06 Measurements Intervals [place] Rate: 157 P: 0 RI: 0 QRS: 34 QRSD: 61 T: 38 QT: 271 QTc: 438 Interpretive Statements SINUS TACHYCARDIA, POSSIBLE ATRIAL FLUTTER CANNOT R/O SEPTAL INFARCT, AGE INDETERMINATE BORDERLINE ST-T WAVE ABNORMALITY- INFERIOR LEADS BASELINE ARTIFACT- I, II, III, AVR, AVL A,VF, V1-V6 ABNORMAL ECG Compared to ECG 08/29/2024 17:11:55 HEART RATE HAS INCREASED Electronically Signed On 08-30-2024 07:35:18 CDT by Damion Vega D.O.
[2024-08-29 23:20] LABS: Alveolar/Arterial O2 Gradient 602.8 mmHg; Carboxyhemoglobin 0.4 % THb (0-2.0); Fractional Inspired Oxygen 100 %; HCO3 ABG 15.1 mEq/l (22.0-26.0); Methemoglobin ABG 0.3 %THb (0-1.5); Oxygen Content ABG 13.3 %vol (16.0-22.0); Oxygen Saturation ABG 97.1 % (95.0-100.0); PO2 ABG 87.2 mmHg (80.0-100.0); PO2 FiO2 Ratio Arterial Blood 0.87 %; Reduced Hemoglobin 3.5 %THb (0-5.0)
[2024-08-29 23:26] LABS: Liters per Minute 15.0 LPM; Modified Allen's Test Pass; PCO2 ABG 23.0 mmHg (35.0-45.0); Site Drawn LEFT RADIAL
[2024-08-29 23:35] LABS: MRSA (PCR) NOT DETECTED (NOT DETECTE)
--- NOTE | 2024-08-29 23:42 | PC.NURSE ---
Patients heart rate 140's and entered room to find patient tachypneic, lips mildly cyanotic with O2@4L/NC. Alert and responding verbally. Respiratory therapist put nonrebreather on. VS with nonrebreather, 180/92, 152, 28, 98.5, 94%. EKG done. Dr. Friedman notified of assessment, VS, EKG. ABG's ordered and Dr. Friedman aware of results. Airvo ordered and in place @ this time with pule ox @ 100%.
[2024-08-29 23:47] LABS: Procalcitonin 24.1 ng/mL
[2024-08-30] VITALS (37 sets, daily range): BP systolic 81–134; BP diastolic 60–74; PULSE 91–144; RESP 14–33; TEMP 36.5–39.6; O2SAT 86–100; BMI 20.8
--- NOTE | 2024-08-30 | ECHO_ITS ---
Patient Info Name: Ina Garcia Age: 68 years : 1955 Gender: Female Ht: 61 in Wt: 110 lbs BSA: 1.47 m2 HR: 103 bpm BP: 134 / 74 mmHg Technical Quality: Good Exam Date: 08/30/2024 12:27 PM Patient Status: I Admit Date: 08/30/2024 Exam Type: CA echo dop color flow w con Complete two-dimensional, color flow and Doppler transthoracic echocardiogram is performed with contrast to opacify the left ventricle and to improve the deliniation of the left ventricle endocardial borders. Staff Referring Physician: Bud James MD Belt Line Feeder: Tiarra Clemens Attending Provider: Kash Barrera Contrast/Agitated Saline Contrast/Ag. Saline: Definity Amount: 2.00 ml Administered By: Tiarra Clemens Existing IV Access: Yes IV Access Condition: patent with no signs of infiltration Summary 1. Definity contrast administered improved wall motion interpretation. 2. Left ventricular chamber dimension is normal. 3. Left ventricular systolic function is normal, estimated at 55-60. 4. The left ventricular diastolic function is grade I diastolic dysfunction. 5. E/e' 6 is not elevated. 6. There is trace aortic valve regurgitation. 7. The mitral valve has a mildly calcified annulus. 8. There is mild tricuspid valve regurgitation. 9. No pulmonary hypertension, estimated pulmonary arterial systolic pressure is 32 mmHg. Left Ventricle Definity contrast administered improved wall motion interpretation. Left ventricular chamber dimension is normal. Left ventricular systolic function is normal, estimated at 55-60. The left ventricular diastolic function is grade I diastolic dysfunction. E/e' 6 is not elevated. Right Ventricle Right ventricular chamber dimension is normal. Right ventricular systolic function is normal. Left Atria Left atrial chamber dimension is normal. Right Atria Right atrial chamber dimension is normal. Aortic Valve The aortic valve is trileaflet. There is no aortic valve stenosis. There is trace aortic valve regurgitation. Pulmonic Valve There is no pulmonic regurgitation. Mitral Valve The mitral valve has a mildly calcified annulus. There is no mitral valve stenosis. There is no mitral valve regurgitation. Tricuspid Valve There is mild tricuspid valve regurgitation. No pulmonary hypertension, estimated pulmonary arterial systolic pressure is 32 mmHg. Pericardium/Pleural There is no pericardial effusion. Inferior Vena Cava Normal inferior vena cava with >50% collapse upon inspiration consistent with normal right atrial pressure, 5 mmHg. Aorta The aortic root size at the sinus of Valsalva is normal. Left Ventricular Outflow Tract Name Value Normal LVOT 2D LVOT Diameter 1.9 cm LVOT Doppler LVOT Peak Velocity 100 cm/s LVOT Peak Gradient 4 mmHg LVOT Mean Gradient 1 mmHg LVOT VTI 18 cm LVOT Stroke Volume 52 ml LVOT CO 4.9 l/min LVOT CI 3.3 l/min/m2 Pulmonic Valve Name Value Normal RVOT Doppler RVOT Peak Velocity 67 cm/s RVOT Peak Gradient 2 mmHg PV Doppler PV Peak Velocity 91 cm/s PV Peak Gradient 3 mmHg Mitral Valve Name Value Normal MV Diastolic Function MV E Peak Velocity 53 cm/s MV A Peak Velocity 75 cm/s MV E/A 0.7 MV Decel Time (PW) 138 ms MV Annular TDI MV E/e' (Septal) 8.3 MV E/e' (Lateral) 5.0 MV E/e' (Average) 6.6 Tricuspid Valve Name Value Normal TV Regurgitation Doppler TR Peak Velocity 260 cm/s TR Peak Gradient 24 mmHg Estimated PAP/RSVP RA Pressure 5 mmHg <=5 PA Systolic Pressure 32 mmHg <36 RV Systolic Pressure 32 mmHg <36 Aortic Valve Name Value Normal AV Doppler AV Peak Velocity 145 cm/s AV Peak Gradient 8 mmHg AV Area (Cont Eq Hector) 2.0 cm2 AV DI (Hector) 0.69 AV Regurgitation 2D LVOT Area 2.9 cm2 Ventricles Name Value Normal LV Dimensions 2D/MM IVS Diastolic Thickness (2D) 0.8 cm 0.6-1.0 LVID Diastole (2D) 3.4 cm 3.8-5.2 LVIW Diastolic Thickness (2D) 1.0 cm 0.6-0.9 LVID Systole (2D) 2.3 cm 2.2-3.5 LVOT Diameter 1.9 cm LV Mass (2D Cubed) 86.69 g 67.00-162.00 LV Mass Index (2D Cubed) 59 g/m2 43-95 Relative Wall Thickness (2D) 0.59 <=0.42 LV Fractional Shortening/Ejection Fraction 2D/MM LV Fractional Shortening (2D) 31 % 27-45 LV EF (2D Teichholz) 60 % LV Diastolic Volume (4C MOD) 63 ml LV EF (4C MOD) 60 % LV Diastolic Volume (2C MOD) 58 ml LV EF (2C MOD) 61 % LV Diastolic Volume (BP MOD) 61 ml 46-106 LV Diastolic Volume Index (BP MOD) 41 ml/m2 29-61 LV Systolic Volume (BP MOD) 24 ml 14-42 LV Systolic Volume Index (BP MOD) 16 ml/m2 8-24 LV EF (BP MOD) 60 % 54-74 LV Diastolic Length (4C) 7.2 cm LV Systolic Length (4C) 5.8 cm LV Stroke Volume (4C MOD) 38 ml Atria Name Value Normal LA Dimensions LA Volume (4C A-L) 22 ml LA Volume (BP A-L) 20 ml RA Dimensions RA Systolic Major [place] Length (4C) 4.2 cm 2.2-2.8 RA Area (4C) 12.3 cm2 <=18.0 Report Signatures
[2024-08-30] MEDS: ACETAMINOPHEN 650 MG SUPPOSITORY RECTAL ×2 (01:03→06:56)
--- NOTE | 2024-08-30 03:39 | PC.NURSE ---
Patient's oxygen saturation dropping into the low 80's on airvo 40L and 50%. Respiratory therapy called, Akhil Batista RN, and Dr. Friedman called. Respiratory therapy turned airvo up to 40L and 60% to maintain pulse ox of 93-94%. Dr. Friedman ordered for morning ABG's to be done now.
[2024-08-30 03:50] LABS: Alveolar/Arterial O2 Gradient 341.7 mmHg; Carboxyhemoglobin 0.7 % THb (0-2.0); Fractional Inspired Oxygen 60 %; HCO3 ABG 16.8 mEq/l (22.0-26.0); Methemoglobin ABG 0.3 %THb (0-1.5); Oxygen Content ABG 10.8 %vol (16.0-22.0); Oxygen Saturation ABG 93.7 % (95.0-100.0); PO2 ABG 61.0 mmHg (80.0-100.0); PO2 FiO2 Ratio Arterial Blood 1.02 %; Reduced Hemoglobin 7.3 %THb (0-5.0)
[2024-08-30 04:07] LABS: PCO2 ABG 22.8 mmHg (35.0-45.0)
[2024-08-30 04:08] LABS: Liters per Minute 45.0 LPM; Modified Allen's Test Pass; Site Drawn RIGHT RADIAL
[2024-08-30 04:18] LABS: Hematocrit 27.7 % (37.0-47.0); Hemoglobin 8.5 g/dL (12.0-15.0); Mean Corpuscular HGB Conc 30.7 g/dl (32-36); Mean Corpuscular Hemoglobin 30.2 pg (26-34); Mean Corpuscular Volume 98.6 fl (80-100); Platelet Count Result 488 k/mm3 (150-375); Red Blood Count 2.81 M/mm3 (4.2-5.4); White Blood Count 7.4 K/mm3 (4.5-10.0)
[2024-08-30 04:25] LABS: Iron 29 ug/dL (37-170)
[2024-08-30 04:33] LABS: Alanine Aminotransferase 63 U/L (6-35); Albumin Level 2.5 g/dL (3.5-5.1); Alkaline Phosphatase 113 U/L (38-126); Anion Gap 11 mmol/L (4-12); Aspartate Amino Transferase 240 U/L (14-36); Bilirubin,Total 0.3 mg/dL (0.2-1.3); Blood Urea Nitrogen 14 mg/dL (7-17); Calcium 7.9 mg/dL (8.4-10.2); Carbon Dioxide 14 mmol/L (22-30); Chloride 112 mmol/L (98-107); Estimated CRCL calculation 46 ml/min; Estimated Glomerular Filt Rate > 60; Glucose 108 mg/dL (65-110); Magnesium 1.5 mg/dL (1.6-2.3); Potassium 3.3 mmol/L (3.4-5.0); Sodium 137 mmol/L (137-145); Total Protein 4.8 g/dL (6.3-8.2)
[2024-08-30 04:35] LABS: Percent Iron Saturation 15 % (20-50)
[2024-08-30 04:56] LABS: Thyroid Stimulating Hormone Reflex 0.613 uIU/mL (0.465-4.68)
[2024-08-30 05:00] LABS: Ferritin 908.00 ng/mL (11.1-264)
[2024-08-30 05:03] LABS: Band Neutrophils Percent 13 % (0-6); Lymphocytes Absolute Manual 0.96 K/mm3 (1.1-4.5); Lymphocytes Percent Manual 13.0 % (18-44); Monocytes Absolute Manual 0.29 K/mm3 (0.1-0.90); Monocytes Percent Manual 4 % (3-9); Neutrophils Absolute Manual 6.14 K/mm3 (1.3-6.7); Neutrophils Percent Manual 70 % (46-73); Total Cells Counted 100
[2024-08-30 05:05] LABS: Anisocytosis 2+; Burr Cells 1+; Hypochromasia 1+; Schistocytes None Seen
[2024-08-30 05:30] LABS: CRP > 40.0 mg/dL (<1.0)
[2024-08-30 05:33] LABS: Vitamin B12 > 1000.0 pg/mL (239-931)
[2024-08-30] MEDS: DEXTROSE 5%/0.9% SOD CHL 1,000 ML 150 ML IV CONT (05:47)
[2024-08-30] MEDS: MAGNESIUM SULF 2 GM/WATER 50ML 2 GM/50 ML BAG IVPB ×2 (05:51→21:23)
[2024-08-30 09:33] LABS: Alveolar/Arterial O2 Gradient 379.9 mmHg; Carboxyhemoglobin 0.5 % THb (0-2.0); Fractional Inspired Oxygen 66 %; HCO3 ABG 17.6 mEq/l (22.0-26.0); Methemoglobin ABG 0.3 %THb (0-1.5); Oxygen Content ABG 11.2 %vol (16.0-22.0); Oxygen Saturation ABG 94.9 % (95.0-100.0); PO2 ABG 65.5 mmHg (80.0-100.0); PO2 FiO2 Ratio Arterial Blood 0.99 %; Reduced Hemoglobin 5.8 %THb (0-5.0)
--- NOTE | 2024-08-30 09:33 | PM.IMPN ---
Progress Note: A&P Assessment and Plan (1) Sepsis: Qualifiers: Sepsis acute organ dysfunction status: with acute organ dysfunction Sepsis type: sepsis due to unspecified organism Severe sepsis acute organ dysfunction type: encephalopathy Severe sepsis shock status: without septic shock Qualified Code(s): A41.9 - Sepsis, unspecified organism; R65.20 - Severe sepsis without septic shock; G93.41 - Metabolic encephalopathy Code(s): A41.9 - Sepsis, unspecified organism Status: Acute (2) Pneumonia: Qualifiers: Laterality: bilateral Lung location: unspecified part of lung Pneumonia type: due to unspecified organism Qualified Code(s): J18.9 - Pneumonia, unspecified organism Code(s): J18.9 - Pneumonia, unspecified organism Status: Acute (3) FRANK (acute kidney injury): Code(s): N17.9 - Acute kidney failure, unspecified Status: Acute (4) Open wound of genital labia: Qualifiers: Encounter type: initial encounter Qualified Code(s): S31.40XA - Unspecified open wound of vagina and vulva, initial encounter Code(s): S31.40XA - Unspecified open wound of vagina and vulva, initial encounter Status: Acute (5) Wound of left buttock: Qualifiers: Encounter type: initial encounter Qualified Code(s): S31.829A - Unspecified open wound of left buttock, initial encounter Code(s): S31.829A - Unspecified open wound of left buttock, initial encounter Status: Acute (6) Abnormal urinalysis: Code(s): R82.90 - Unspecified abnormal findings in urine Status: Acute (7) Hypokalemia: Code(s): E87.6 - Hypokalemia Status: Acute (8) Acute metabolic encephalopathy due to hypoglycemia: Code(s): G93.41 - Metabolic encephalopathy; E16.2 - Hypoglycemia, unspecified Status: Acute (9) Urinary retention with incomplete bladder emptying: Code(s): R33.9 - Retention of urine, unspecified Status: Acute (10) Acute on chronic anemia: Code(s): D64.9 - Anemia, unspecified Status: Acute Plan 68-year-old female with a complex past medical history including, but not limited to, rheumatoid arthritis, Crohn's disease, GERD with history of ulcers, osteoporosis on chronic immunosuppressive therapy who presented to the ER via EMS due to altered mental status. The patient being ill recently but she had had an ulcer to her left buttock that is been ongoing for 6 or 8 weeks. He reports she went and saw cable former a few weeks back and was started on valacyclovir. presume the patient being treated for presumed shingles outbreak. Patient herself reports she has been having ulcers over labia for a couple of weeks. Patient's reports that the ulcer for buttock initially started about the size of a nickel in currently at the time my evaluation was the size of a softball. She also has some decubitus appearing ulcers in the buttock crease. Patient reports she has been coughing for ?a few days?. reports that he has not noticed her having any increased cough or shortness of breath. He walked into her bedroom a couple of hours after she would usually get up in the patient was bent over the bed with her legs on the floor. He asked her if she was okay in the patient with speaking gibberish. When he stated that he was going to call the ambulance the patient then asked her if he was okay. She then repetitively asked him if he was okay. On EMS arrival to her home a found the patient to be hypoglycemia with glucoses in the 40s. Patient received 250 mL of D10 EN route to the hospital initial glucose on BMP was 131. Repeat glucose couple of hours later was down to 29. Patient was febrile on arrival to the hospital with T-max of 100.9?. She denied any nausea or vomiting. She did report sensation of incomplete bladder emptying. Bedside bladder scan demonstrated a greater than 377 mL in patient had tenderness in the suprapubic region with palpable bladder distention. No hypoxia was directly documented from the ER but patient arrived to the floor on 2 L nasal cannula and was mildly tachypneic. Laboratory data revealed a WBC of 9.2 hemoglobin of 9.3 platelet 495. Chem panel with sodium 134 potassium 3.1 bicarbonate of 19 with anion gap of 17 creatinine was 1.53 glucose was 131 lactic acid was elevated at 8.4 calcium 8.6 LFTs mildly elevated with AST 122 ALT 54 alkaline phosphatase 127. Procalcitonin was elevated at 24.1. Subsequent lactic acidosis was down to 3.3 however subsequently it went up to 4.9. Urinalysis with 6-10 WBC and 21-50 RBC with many squamous epithelial cells. CT chest abdomen pelvis showed dense bilateral multifocal infiltrates predominantly perihilar. Head CT with no acute intracranial abnormality. Since admission she has been more hypoxic and now had been on Airvo. Confusion have worsened. Severe sepsis with tachycardia tachypnea fever severe lactic acidosis. Chest x-ray with multifocal pneumonia. Antibiotics will be broadened from ceftriaxone and azithromycin to include cefepime and vancomycin. Will continue azithromycin for atypical coverage. Acute hypoxic respiratory failure with worsening impending respiratory failure. Will need intubation and mechanical ventilation. Discussed with family and agreeable. Discussed with ICU team and will be transferred to ICU. Hypoglycemia likely due to sepsis. Continue to monitor. Hypoglycemia protocol Acute encephalopathy could be from severe sepsis. Recently treated with Valtrex as well also had acute renal failure/transaminitis Transaminitis mild monitor Immunocompromised patient on methotrexate hydroxychloroquine and low-dose prednisone chronically History of rheumatoid arthritis Crohn's disease GERD with history of ulcers Osteoporosis Recent shingles/labial herpes Urinary retention status post [place] placement DVT prophylaxis Code status full code Discussed with family at bedside. Subjective Date/time seen: 08/30/24 09:33 Interval history: pt agitated, restless, remains tachycardic, family at bedside. Patient confused as well. Review of Systems Review of Systems: ROS unobtainable: Yes unobtainable due to medical condition Exam Narrative: GENERAL: ill-appearing, thin, and restless HEAD: Normocephalic, atraumatic. EYES: PERRL and EOMI. ENT: Dry mucous membranes. CHEST: coarse breath sounds bilaterally, no wheezes, hypoxic on airvo HEART: tachycardic. Normal peripheral pulses. ABDOMEN: Soft, nontender, nondistended. EXTREMITIES: Normal range of motion. No edema. SKIN: Warm, dry. Healing sores legs, No cellulitis. No purulent drainage. The sores are yellow and almost appear like Objective Data Vital Signs Vital Signs: Vital Signs - 24 hr 08/29/24 16:25 08/29/24 16:41 08/29/24 16:45 Temperature 100.9 F H Pulse Rate 140 H 140 H 140 H Respiratory Rate 22 H 32 H 20 Blood Pressure 110/72 110/72 120/76 Pulse Oximetry 95 Oxygen Delivery Room Air Oxygen Flow Rate Fraction of Inspired Oxygen 08/29/24 17:02 08/29/24 17:08 08/29/24 17:13 Temperature Pulse Rate 147 H 132 H Respiratory Rate 21 H 16 Blood Pressure 79/56 L 111/73 Pulse Oximetry 92 Oxygen Delivery Nasal Cannula Oxygen Flow Rate 2 Fraction of Inspired Oxygen 08/29/24 17:15 08/29/24 17:24 08/29/24 17:30 Temperature Pulse Rate 126 H 122 H 123 H Respiratory Rate 20 26 H Blood Pressure 114/87 125/78 Pulse Oximetry 95 100 Oxygen Delivery Oxygen Flow Rate Fraction of Inspired Oxygen 08/29/24 17:45 08/29/24 18:00 08/29/24 18:15 Temperature Pulse Rate 124 H 122 H 122 H Respiratory Rate 24 H 18 25 H Blood Pressure 121/75 117/67 120/69 Pulse Oximetry Oxygen Delivery Oxygen Flow Rate Fraction of Inspired Oxygen 08/29/24 18:30 08/29/24 18:45 08/29/24 19:02 Temperature 99.2 F Pulse Rate 120 H 121 H 121 H Respiratory Rate 28 H 27 H Blood Pressure 123/79 121/69 114/84 Pulse Oximetry 24 L Oxygen Delivery Oxygen Flow Rate Fraction of Inspired Oxygen 08/29/24 19:45 08/29/24 21:05 08/29/24 22:00 Temperature 98.4 F Pulse Rate 123 H 69 125 H Respiratory Rate 27 H 20 Blood Pressure 117/79 114/67 Pulse Oximetry 94 Oxygen Delivery Oxygen Flow Rate Fraction of Inspired Oxygen 08/29/24 22:45 08/29/24 23:14 08/30/24 00:00 Temperature 98.5 F Pulse Rate 152 H Respiratory Rate 28 H Blood Pressure 180/92 H Pulse Oximetry 97 100 Oxygen Delivery High Flow Therapy with Na High Flow Therapy with Na Oxygen Flow Rate 40 40 Fraction of Inspired Oxygen 50 50 08/30/24 00:00 08/30/24 00:56 08/30/24 01:03 Temperature 103.3 F H 103.3 F H Pulse Rate 142 H Respiratory Rate Blood Pressure Pulse Oximetry Oxygen Delivery Oxygen Flow Rate Fraction of Inspired Oxygen 08/30/24 02:09 08/30/24 02:22 08/30/24 03:45 Temperature 100.7 F H 100.6 F H Pulse Rate 144 H 139 H Respiratory Rate 20 Blood Pressure 128/60 Pulse Oximetry 86 L Oxygen Delivery Oxygen Flow Rate Fraction of Inspired Oxygen 08/30/24 04:00 08/30/24 04:00 08/30/24 04:12 Temperature Pulse Rate 137 H Respiratory Rate Blood Pressure Pulse Oximetry 99 93 Oxygen Delivery High Flow Therapy with Na High Flow Therapy with Na Oxygen Flow Rate 40 45 Fraction of Inspired Oxygen 60 60 08/30/24 06:32 08/30/24 06:56 08/30/24 07:02 Temperature 103.3 F H 103.3 F H Pulse Rate 136 H Respiratory Rate Blood Pressure Pulse Oximetry Oxygen Delivery Oxygen Flow Rate Fraction of Inspired Oxygen 08/30/24 08:00 Temperature 98.9 F Pulse Rate 134 H Respiratory Rate 26 H Blood Pressure 134/74 Pulse Oximetry Oxygen Delivery Oxygen Flow Rate Fraction of Inspired Oxygen Intake/Output Intake/Output: Intake & Output 08/27/24 08/28/24 08/29/24 08/30/24 23:59 23:59 23:59 23:59 Intake Total 3300 1000 Output Total 750 Balance 3300 250 Meds/Results Medications: Active Medications Generic Name Dose Route Start Last Admin Trade Name Freq PRN Reason Stop Dose Admin Acetaminophen 650 mg 08/29/24 18:17 Acetaminophen 325 Mg Tablet PO Q4H PRN Mild Pain (1-3) or Fever Acetaminophen 650 mg 08/30/24 00:43 08/30/24 06:56 Acetaminophen 650 Mg Suppository RECTAL 650 mg Q6H PRN Administration Mild Pain (1-3) or Fever Dextrose 12.5 gm 08/29/24 20:42 08/29/24 23:59 Dextrose 50% 25 Gm/50 Ml Syringe IV PUSH 12.5 gm PRN PRN Administration Hypoglycemia Protocol Glucagon 1 mg 08/29/24 20:42 Glucagon For Inj 1 Mg Vial IM PRN PRN Hypoglycemia Protocol Glucose 15 gm 08/29/24 20:42 Glucose Oral Gel 15 Gm Of Glucse In 37.5 Gm Tube PO PRN PRN Hypoglycemia Protocol Heparin Sodium (Porcine) 5,000 units 08/30/24 09:00 Heparin Sodium 5,000 Units/Ml Vial SUB-Q Q12HR RHYS Azithromycin 500 mg in 250 mls @ 250 mls/hr 08/30/24 19:00 Zithromax IVPB Q24H RHYS Dextrose 1,000 mls @ 100 mls/hr 08/29/24 20:42 Dextrose 5% 1,000 Ml IVPB PRN PRN Hypoglycemia Protocol Dextrose/Sodium Chloride 1,000 mls @ 150 mls/hr 08/29/24 20:55 08/30/24 05:47 Dextrose 5% Sodium Chloride 0.9% IV CONT 150 mls/hr .Q6H40M RHYS Administration Cefepime HCl 2 gm in 50 mls @ 100 mls/hr 08/30/24 09:35 Maxipime 2 Gm/Ns 50 Ml IVPB Q8H RHYS Promethazine HCl 12.5 mg 08/29/24 18:17 Promethazine Hcl 25 Mg/Ml Ampul IV PUSH Q6H PRN Nausea Valacyclovir HCl 500 mg 08/30/24 09:00 Valacyclovir Hcl 500 Mg Tablet PO DAILY [facility] Vancomycin HCl 1 each 08/30/24 09:35 Vancomycin Pharmacist To Dose IVPB PER PROTOCOL [facility] Radiology Results: ITS Impressions Head CT 08/29/24 21:55 Impression: No acute intracranial hemorrhage or suspicious mass effect. Chest/Abdomen/Pelvis CT 08/29/24 21:57 IMPRESSION: Dense bilateral multifocal infiltrates, predominantly perihilar, as detailed above. No additional source is detected for patient's profound sepsis. Chest X-Ray 08/30/24 06:04 Impression: Worsening diffuse patchy bilateral pulmonary consolidation. Correlate for severe pulmonary edema or diffuse pneumonia, or possibly RDS. Labs Labs: Laboratory Results - last 24 hr 08/29/24 08/29/24 08/29/24 17:07 17:08 18:28 WBC 9.2 RBC 3.06 L Hgb 9.3 L Hct 29.5 L MCV 96.4 MCH 30.4 MCHC 31.5 L RDW 24.3 H Plt Count 495 H MPV 9.8 Immature Gran % (Auto) Not Reportable Neut % (Auto) Not Reportable Lymph % (Auto) Not Reportable [place] % (Auto) Not Reportable Eos % (Auto) Not Reportable Baso % (Auto) Not Reportable Lymph # (Auto) Not Reportable [place] # (Auto) Not Reportable Eos # (Auto) Not Reportable Baso # (Auto) Not Reportable Abs Immat Gran (auto) Not Reportable Absolute Neuts (auto) Not Reportable Absolute Nucleated RBC Not Reportable Total Counted 100 Neutrophils % (Manual) 74 H Band Neutrophils % 10 H Lymphocytes % (Manual) 7.0 L Monocytes % (Manual) 8 Basophils % (Manual) 1 Nucleated RBC % Not Reportable Abs Neuts (Manual) 7.72 H Abs Lymphs (Manual) 0.64 L Abs Monocytes (Manual) 0.73 Abs Basophils (Manual) 0.09 Platelet Estimate Increased Hypochromasia 1+ Anisocytosis 3+ [place] Cells Schistocytes None seen PT 16.5 H INR 1.3 APTT 41.0 H Puncture Site Right radial ABG pH 7.380 ABG pCO2 27.0 L ABG pO2 84.6 ABG PO2/FiO2 Ratio 3.02 ABG HCO3 15.6 L ABG O2 Saturation 96.4 ABG O2 Content 11.1 L ABG Base Excess -8.5 A-a Gradient 83.2 Oxyhemoglobin 93.6 Carboxyhemoglobin 1.0 Methemoglobin 0.3 Reduced Hemoglobin 5.1 H Total Hemoglobin 8.3 L O2 Delivery Device Nasal cannula O2 Liters/Min 2.0 FiO2 28 Sodium 134 L Potassium 3.1 L Chloride 98 Carbon Dioxide 19 L Anion Gap 17 H BUN 18 H Creatinine 1.53 H Estim Creat Clear Calc 24 Estimated GFR 34 L Glucose 131 H POC Capillary Glucose Lactic Acid 8.4 H* Calcium 8.6 Phosphorus Magnesium 1.6 Iron TIBC % Saturation Ferritin Total Bilirubin 0.3 AST 122 H ALT 54 H Alkaline Phosphatase 127 H C-Reactive Protein Total Protein 5.3 L Albumin 2.9 L Vitamin B12 Folate Procalcitonin TSH (Reflex) Urine Color Dark yellow Urine Appearance Turbid H Urine pH 5.0 Ur Specific [place] 1.022 Urine Protein 2+ H Urine Glucose (UA) Negative Urine Ketones Trace H Ur Blood (Man) 3+ H Urine Nitrate Negative Urine Bilirubin 1+ H Urine Urobilinogen 1.0 Leukocyte Esterase Rfl Trace H Urine RBC 21-50 H Urine WBC 6-10 H Ur Squamous Epith Cells Many H Urine Bacteria 2+ H Urine Casts >20 Hyaline Casts Present Nasal MRSA (PCR) Influenza A (RT-PCR) Negative Influenza B (RT-PCR) Negative RSV (RT-PCR) Negative SARS-CoV-2 RNA (RT-PCR) Negative 08/29/24 08/29/24 08/29/24 19:10 19:12 19:14 WBC RBC Hgb Hct MCV MCH MCHC RDW Plt Count MPV Immature Gran % (Auto) Neut % (Auto) Lymph % (Auto) [place] % (Auto) Eos % (Auto) Baso % (Auto) Lymph # (Auto) [place] # (Auto) Eos # (Auto) Baso # (Auto) Abs Immat Gran (auto) Absolute Neuts (auto) Absolute Nucleated RBC Total Counted Neutrophils % (Manual) Band Neutrophils % Lymphocytes % (Manual) Monocytes % (Manual) Basophils % (Manual) Nucleated RBC % Abs Neuts (Manual) Abs Lymphs (Manual) Abs Monocytes (Manual) Abs Basophils (Manual) Platelet Estimate Hypochromasia Anisocytosis [place] Cells Schistocytes PT INR APTT Puncture Site ABG pH ABG pCO2 ABG pO2 ABG PO2/FiO2 Ratio ABG HCO3 ABG O2 Saturation ABG O2 Content ABG Base Excess A-a Gradient Oxyhemoglobin Carboxyhemoglobin Methemoglobin Reduced Hemoglobin Total Hemoglobin O2 Delivery Device O2 Liters/Min FiO2 Sodium Potassium Chloride Carbon Dioxide Anion Gap BUN Creatinine Estim Creat Clear Calc Estimated GFR Glucose POC Capillary Glucose 29 L* 30 L* 73 Lactic Acid Calcium Phosphorus Magnesium Iron TIBC % Saturation Ferritin Total Bilirubin AST ALT Alkaline Phosphatase C-Reactive Protein Total Protein Albumin Vitamin B12 Folate Procalcitonin TSH (Reflex) Urine Color Urine Appearance Urine pH Ur Specific [place] Urine Protein Urine Glucose (UA) Urine Ketones Ur Blood (Man) Urine Nitrate Urine Bilirubin Urine Urobilinogen Leukocyte Esterase Rfl Urine RBC Urine WBC Ur Squamous Epith Cells Urine Bacteria Urine Casts Hyaline Casts Nasal MRSA (PCR) Influenza A (RT-PCR) Influenza B (RT-PCR) RSV (RT-PCR) SARS-CoV-2 RNA (RT-PCR) 08/29/24 08/29/24 08/29/24 19:44 20:19 22:09 WBC RBC Hgb Hct MCV MCH MCHC RDW Plt Count MPV Immature Gran % (Auto) Neut % (Auto) Lymph % (Auto) [place] % (Auto) Eos % (Auto) Baso % (Auto) Lymph # (Auto) [place] # (Auto) Eos # (Auto) Baso # (Auto) Abs Immat Gran (auto) Absolute Neuts (auto) Absolute Nucleated RBC Total Counted Neutrophils % (Manual) Band Neutrophils % Lymphocytes % (Manual) Monocytes % (Manual) Basophils % (Manual) Nucleated RBC % Abs Neuts (Manual) Abs Lymphs (Manual) Abs Monocytes (Manual) Abs Basophils (Manual) Platelet Estimate Hypochromasia Anisocytosis [place] Cells Schistocytes PT INR APTT Puncture Site ABG pH ABG pCO2 ABG pO2 ABG PO2/FiO2 Ratio ABG HCO3 ABG O2 Saturation ABG O2 Content ABG Base Excess A-a Gradient Oxyhemoglobin Carboxyhemoglobin Methemoglobin Reduced Hemoglobin Total Hemoglobin O2 Delivery Device O2 Liters/Min FiO2 Sodium Potassium Chloride Carbon Dioxide Anion Gap BUN Creatinine Estim Creat Clear Calc Estimated GFR Glucose POC Capillary Glucose 74 95 Lactic Acid 3.3 H Calcium Phosphorus Magnesium Iron TIBC % Saturation Ferritin Total Bilirubin AST ALT Alkaline Phosphatase C-Reactive Protein Total Protein Albumin Vitamin B12 Folate Procalcitonin TSH (Reflex) Urine Color Urine Appearance Urine pH Ur Specific [place] Urine Protein Urine Glucose (UA) Urine Ketones Ur Blood (Man) Urine Nitrate Urine Bilirubin Urine Urobilinogen Leukocyte Esterase Rfl Urine RBC Urine WBC Ur Squamous Epith Cells Urine Bacteria Urine Casts Hyaline Casts Nasal MRSA (PCR) Influenza A (RT-PCR) Influenza B (RT-PCR) RSV (RT-PCR) SARS-CoV-2 RNA (RT-PCR) 08/29/24 08/29/24 08/29/24 22:17 23:00 23:12 WBC RBC Hgb Hct MCV MCH MCHC RDW Plt Count MPV Immature Gran % (Auto) Neut % (Auto) Lymph % (Auto) [place] % (Auto) Eos % (Auto) Baso % (Auto) Lymph # (Auto) [place] # (Auto) Eos # (Auto) Baso # (Auto) Abs Immat Gran (auto) Absolute Neuts (auto) Absolute Nucleated RBC Total Counted Neutrophils % (Manual) Band Neutrophils % Lymphocytes % (Manual) Monocytes % (Manual) Basophils % (Manual) Nucleated RBC % Abs Neuts (Manual) Abs Lymphs (Manual) Abs Monocytes (Manual) Abs Basophils (Manual) Platelet Estimate Hypochromasia Anisocytosis [place] Cells Schistocytes PT INR APTT Puncture Site ABG pH ABG pCO2 ABG pO2 ABG PO2/FiO2 Ratio ABG HCO3 ABG O2 Saturation ABG O2 Content ABG Base Excess A-a Gradient Oxyhemoglobin Carboxyhemoglobin Methemoglobin Reduced Hemoglobin Total Hemoglobin O2 Delivery Device O2 Liters/Min FiO2 Sodium Potassium Chloride Carbon Dioxide Anion Gap BUN Creatinine Estim Creat Clear Calc Estimated GFR Glucose POC Capillary Glucose 95 Lactic Acid 4.9 H* Calcium Phosphorus Magnesium Iron TIBC % Saturation Ferritin Total Bilirubin AST ALT Alkaline Phosphatase C-Reactive Protein Total Protein Albumin Vitamin B12 Folate Procalcitonin 24.1 TSH (Reflex) Urine Color Urine Appearance Urine pH Ur Specific [place] Urine Protein Urine Glucose (UA) Urine Ketones Ur Blood (Man) Urine Nitrate Urine Bilirubin Urine Urobilinogen Leukocyte Esterase Rfl Urine RBC Urine WBC Ur Squamous Epith Cells Urine Bacteria Urine Casts Hyaline Casts Nasal MRSA (PCR) Not detected Influenza A (RT-PCR) Influenza B (RT-PCR) RSV (RT-PCR) SARS-CoV-2 RNA (RT-PCR) 08/29/24 08/29/24 08/30/24 23:16 23:56 00:19 WBC RBC Hgb Hct MCV MCH MCHC RDW Plt Count MPV Immature Gran % (Auto) Neut % (Auto) Lymph % (Auto) [place] % (Auto) Eos % (Auto) Baso % (Auto) Lymph # (Auto) [place] # (Auto) Eos # (Auto) Baso # (Auto) Abs Immat Gran (auto) Absolute Neuts (auto) Absolute Nucleated RBC Total Counted Neutrophils % (Manual) Band Neutrophils % Lymphocytes % (Manual) Monocytes % (Manual) Basophils % (Manual) Nucleated RBC % Abs Neuts (Manual) Abs Lymphs (Manual) Abs Monocytes (Manual) Abs Basophils (Manual) Platelet Estimate Hypochromasia Anisocytosis [place] Cells Schistocytes PT INR APTT Puncture Site Left radial ABG pH 7.435 ABG pCO2 23.0 L* ABG pO2 87.2 ABG PO2/FiO2 Ratio 0.87 ABG HCO3 15.1 L ABG O2 Saturation 97.1 ABG O2 Content 13.3 L ABG Base Excess -7.7 A-a Gradient 602.8 Oxyhemoglobin 95.8 Carboxyhemoglobin 0.4 Methemoglobin 0.3 Reduced Hemoglobin 3.5 Total Hemoglobin 9.8 L O2 Delivery Device Non-rebreather mask O2 Liters/Min 15.0 FiO2 100 Sodium Potassium Chloride Carbon Dioxide Anion Gap BUN Creatinine Estim Creat Clear Calc Estimated GFR Glucose POC Capillary Glucose 55 L* 138 H Lactic Acid Calcium Phosphorus Magnesium Iron TIBC % Saturation Ferritin Total Bilirubin AST ALT Alkaline Phosphatase C-Reactive Protein Total Protein Albumin Vitamin B12 Folate Procalcitonin TSH (Reflex) Urine Color Urine Appearance Urine pH Ur Specific [place] Urine Protein Urine Glucose (UA) Urine Ketones Ur Blood (Man) Urine Nitrate Urine Bilirubin Urine Urobilinogen Leukocyte Esterase Rfl Urine RBC Urine WBC Ur Squamous Epith Cells Urine Bacteria Urine Casts Hyaline Casts Nasal MRSA (PCR) Influenza A (RT-PCR) Influenza B (RT-PCR) RSV (RT-PCR) SARS-CoV-2 RNA (RT-PCR) 08/30/24 08/30/24 08/30/24 01:55 03:36 03:42 WBC RBC Hgb Hct MCV MCH MCHC RDW Plt Count MPV Immature Gran % (Auto) Neut % (Auto) Lymph % (Auto) [place] % (Auto) Eos % (Auto) Baso % (Auto) Lymph # (Auto) [place] # (Auto) Eos # (Auto) Baso # (Auto) Abs Immat Gran (auto) Absolute Neuts (auto) Absolute Nucleated RBC Total Counted Neutrophils % (Manual) Band Neutrophils % Lymphocytes % (Manual) Monocytes % (Manual) Basophils % (Manual) Nucleated RBC % Abs Neuts (Manual) Abs Lymphs (Manual) Abs Monocytes (Manual) Abs Basophils (Manual) Platelet Estimate Hypochromasia Anisocytosis Mary Cells Schistocytes PT INR APTT Puncture Site Right radial ABG pH 7.485 H ABG pCO2 22.8 L* ABG pO2 61.0 L ABG PO2/FiO2 Ratio 1.02 ABG HCO3 16.8 L ABG O2 Saturation 93.7 L ABG O2 Content 10.8 L ABG Base Excess -5.6 A-a Gradient 341.7 Oxyhemoglobin 91.7 Carboxyhemoglobin 0.7 Methemoglobin 0.3 Reduced Hemoglobin 7.3 H Total Hemoglobin 8.3 L O2 Delivery Device High flow therapy O2 Liters/Min 45.0 FiO2 60 Sodium Potassium Chloride Carbon Dioxide Anion Gap BUN Creatinine Estim Creat Clear Calc Estimated GFR Glucose POC Capillary Glucose 119 H 110 H Lactic Acid Calcium Phosphorus Magnesium Iron TIBC % Saturation Ferritin Total Bilirubin AST ALT Alkaline Phosphatase C-Reactive Protein Total Protein Albumin Vitamin B12 Folate Procalcitonin TSH (Reflex) Urine Color Urine Appearance Urine pH Ur Specific [place] Urine Protein Urine Glucose (UA) Urine Ketones Ur Blood (Man) Urine Nitrate Urine Bilirubin Urine Urobilinogen Leukocyte Esterase Rfl Urine RBC Urine WBC Ur Squamous Epith Cells Urine Bacteria Urine Casts Hyaline Casts Nasal MRSA (PCR) Influenza A (RT-PCR) Influenza B (RT-PCR) RSV (RT-PCR) SARS-CoV-2 RNA (RT-PCR) 08/30/24 08/30/24 08/30/24 03:54 05:53 08:44 WBC 7.4 RBC 2.81 L Hgb 8.5 L Hct 27.7 L MCV 98.6 MCH 30.2 MCHC 30.7 L RDW 24.2 H Plt Count 488 H MPV 9.7 Immature Gran % (Auto) Not Reportable Neut % (Auto) Not Reportable Lymph % (Auto) Not Reportable [place] % (Auto) Not Reportable Eos % (Auto) Not Reportable Baso % (Auto) Not Reportable Lymph # (Auto) Not Reportable [place] # (Auto) Not Reportable Eos # (Auto) Not Reportable Baso # (Auto) Not Reportable Abs Immat Gran (auto) Not Reportable Absolute Neuts (auto) Not Reportable Absolute Nucleated RBC Not Reportable Total Counted 100 Neutrophils % (Manual) 70 Band Neutrophils % 13 H Lymphocytes % (Manual) 13.0 L Monocytes % (Manual) 4 Basophils % (Manual) Nucleated RBC % Not Reportable Abs Neuts (Manual) 6.14 Abs Lymphs (Manual) 0.96 L Abs Monocytes (Manual) 0.29 Abs Basophils (Manual) Platelet Estimate Increased Hypochromasia 1+ Anisocytosis 2+ [place] Cells 1+ Schistocytes None seen PT INR APTT Puncture Site ABG pH ABG pCO2 ABG pO2 ABG PO2/FiO2 Ratio ABG HCO3 ABG O2 Saturation ABG O2 Content ABG Base Excess A-a Gradient Oxyhemoglobin Carboxyhemoglobin Methemoglobin Reduced Hemoglobin Total Hemoglobin O2 Delivery Device O2 Liters/Min FiO2 Sodium 137 Potassium 3.3 L Chloride 112 H Carbon Dioxide 14 L Anion Gap 11 BUN 14 Creatinine 0.79 Estim Creat Clear Calc 46 Estimated GFR > 60 Glucose 108 POC Capillary Glucose 104 120 H Lactic Acid Calcium 7.9 L Phosphorus 2.0 L Magnesium 1.5 L Iron 29 L TIBC 197 L % Saturation 15 L Ferritin 908.00 H Total Bilirubin 0.3 AST 240 H ALT 63 H Alkaline Phosphatase 113 C-Reactive Protein > 40.0 H Total Protein 4.8 L Albumin 2.5 L Vitamin B12 > 1000.0 H Folate 14.1 Procalcitonin TSH (Reflex) 0.613 Urine Color Urine Appearance Urine pH Ur Specific [place] Urine Protein Urine Glucose (UA) Urine Ketones Ur Blood (Man) Urine Nitrate Urine Bilirubin Urine Urobilinogen Leukocyte Esterase Rfl Urine RBC Urine WBC Ur Squamous Epith Cells Urine Bacteria Urine Casts Hyaline Casts Nasal MRSA (PCR) Influenza A (RT-PCR) Influenza B (RT-PCR) RSV (RT-PCR) SARS-CoV-2 RNA (RT-PCR)
[2024-08-30 09:41] LABS: PCO2 ABG 23.2 mmHg (35.0-45.0)
[2024-08-30 09:42] LABS: Liters per Minute 45.0 LPM; Modified Allen's Test Pass; Site Drawn RIGHT RADIAL
[2024-08-30] MEDS: FENTANYL 2,500MCG/NS250ML(*CRX 2,500 MCG/250 ML BAG IV CONT (10:23)
[2024-08-30] MEDS: MIDAZOLAM 100MG/NS 100ML(*CRX) 100 MG/100 ML BAG IV CONT (10:24)
--- NOTE | 2024-08-30 10:24 | WPDPROCEDUR ---
Procedures Intubation Intubation Date: 08/30/24 Intubation Time: 10:15 Consent: Verbal consetn obtained from pt in front of her A pre-procedural Time-Out was completed immediately before starting the procedure and confirmed: Patient Identification, Site, Procedure, Patient Position and the Availability of Requisite Equipment: Yes Sedative: etomidate Mg given: 20 Paralytic: succinylcholine Mg given: 100 Laryngoscope: fiber optic video scope Assist device used: fiber optic device ET tube size: cuffed Tube secured depth (cm): 22 Tube secured location: lips Tube placement confirmation: visualized tube passing through cords, equal breath sounds bilaterally, no breath sounds over epigastrium and confirmation by capnometry Patient tolerated procedure: well Intubation complications: none
[2024-08-30] MEDS: ETOMIDATE 20 MG/10 ML AMPUL IV PUSH (10:33)
[2024-08-30] MEDS: SUCCINYLCHOLINE CHLORIDE 20 MG/ML 10 ML VIAL 100 MG IV PUSH (10:33)
[2024-08-30] MEDS: MIDAZOLAM HCL (*CRX) 2 MG/2 ML VIAL 4 MG IV PUSH (10:33)
[2024-08-30] MEDS: MIDAZOLAM HCL (*CRX) 2 MG/2 ML VIAL IV PUSH ×2 (10:40→10:53)
[2024-08-30] MEDS: fentaNYL CITRATE INJ (*CRX) 100 MCG/2 ML VIAL 50 MCG IV PUSH ×2 (10:40→10:52)
--- NOTE | 2024-08-30 10:45 | P.CONIN_ITS ---
Assessment and Plan Assessment and plan (1) Acute respiratory failure: Code(s): J96.00 - Acute respiratory failure, unspecified whether with hypoxia or hypercapnia Status: Acute Assessment and Plan: Acute respiratory failure and sepsis secondary to bilateral pneumonia in an immunocompromised patient who is currently on methotrexate and hydroxychloroquine. ARDS is another possibility 08/29 CT Chest Dense bilateral multifocal infiltrates, predominantly perihilar, as detailed above. No additional source is detected for patient's profound sepsis During my assessment patient was tachypneic and tachycardic and in respiratory distress although she was maintaining her oxygen saturation Option of intubation and mechanical ventilation was discussed the patient and patient was agreeable as she was in respiratory distress. Risks and benefits were explained to the patient and her family and they all agree were agreeable and verbalized understanding to proceed. Patient was transferred to ICU and electively intubated Placed on CMV with low tidal volume and PEEP of 8 and FiO2 of 100%. Chest x-ray reviewed and ETT withdrawn by 1 cm ABG ordered and pending Continue broad-spectrum antibiotics in the form of vancomycin cefepime and azithromycin Blood and sputum culture PCR for influenza RSV and COVID was negative Urine Legionella and pneumococcal antigen Mycoplasma IgM Consult pulmonary for bronchoscopy Stress dose hydrocortisone (2) Gastroesophageal reflux disease: Qualifiers: Esophagitis presence: esophagitis presence not specified Qualified Code(s): K21.9 - Gastro-esophageal reflux disease without esophagitis Code(s): K21.9 - Gastro-esophageal reflux disease without esophagitis Status: Acute Assessment and Plan: PPI q.12 hours (3) FRANK (acute kidney injury): Code(s): N17.9 - Acute kidney failure, unspecified Status: Acute Assessment and Plan: Patient presented with elevated creatinine which was likely secondary to sepsis. Creatinine is improved with IV fluids Cut down on further IV fluids Monitor urine output electrolytes and creatinine [place] catheter for accurate I&Os (4) Sepsis: Qualifiers: Sepsis acute organ dysfunction status: with acute organ dysfunction S epsis type: sepsis due to unspecified organism Severe sepsis acute organ dysfunction type: encephalopathy Severe sepsis shock status: without septic shock Qualified Code(s): A41.9 - Sepsis, unspecified organism; R65.20 - Severe sepsis without septic shock; G93.41 - Metabolic encephalopathy Code(s): A41.9 - Sepsis, unspecified organism Status: Acute Assessment and Plan: See above (5) Immunosuppressed status: Code(s): D89.9 - Disorder involving the immune mechanism, unspecified Status: Acute Assessment and Plan: See above (6) Rheumatoid arthritis: Code(s): M06.9 - Rheumatoid arthritis, unspecified Status: Acute Assessment and Plan: Hold methotrexate and hydroxychloroquine (7) Toxic metabolic encephalopathy: Code(s): G92.8 - Other toxic encephalopathy Status: Acute Assessment and Plan: Patient presented with altered mental status and confusion which appears to be encephalopathy ache. Patient has sepsis and was on several medication including tramadol and benzodiazepine at home Patient appears much more awake and alert this morning before intubation and is now oriented x [address] was negative TSH was normal Patient obviously now sedated and intubated (8) Pneumonia: Qualifiers: Laterality: bilateral Lung location: unspecified part of lung P neumonia type: due to unspecified organism Qualified Code(s): J18.9 - Pneumonia, unspecified organism Code(s): J18.9 - Pneumonia, unspecified organism Status: Acute Assessment and Plan: See above (9) Urinary tract infection: Qualifiers: Hematuria presence: with hematuria Urinary tract infection type: site unspecified Qualified Code(s): N39.0 - Urinary tract infection, site not specified; R31.9 - Hematuria, unspecified Code(s): N39.0 - Urinary tract infection, site not specified Status: Acute Assessment and Plan: UA suggestive of UTI Cultures ordered On broad-spectrum antibiotics Plan DVT prophylaxis -heparin Stress ulcer prophylaxis -buttock Nutrition -start Tube Feeds Code Status - Full Code Total Critical Care Time - 45 minutes Due to a high probability of clinically significant, life threatening deterioration, the patient required my highest level of preparedness to intervene emergently and I personally spent this critical care time directly and personally managing the patient. This critical care time included obtaining a history; examining the patient; pulse oximetry; ordering and review of studies; arranging urgent treatment with development of a management plan; evaluation of patient's response to treatment; frequent reassessment; and discussions with other providers. It was exclusive of separately billable procedures and treating other patients and teaching time. 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 On presentation was confused and history was provided by patient's ex-. Patient is currently being treated for what appears to be shingles and labial herpes with antiviral. She is on methotrexate and hydroxychloroquine along with low-dose prednisone as an outpatient. In the ER patient was found to be confused, she had hypoglycemia and CT scan showed bilateral diffuse infiltrates suggestive of pneumonia. Patient was also febrile. She was given IV fluid bolus and admitted to intermediate unit. Over the course of the night patient's respiratory status continued to worsen with increased oxygen requirement and this morning patient was on Airvo at 66% FiO2 and 45 L flow I was called to evaluate the patient. On my evaluation patient is now on less confused and was able to give some history. She was AO x3 and stated that she started having shortness of breath since yesterday. She claims compliance with all medications. She states she had cough but it was dry. She denies any fever nausea vomiting chest pain abdominal pain diarrhea constipation hematochezia melena dysuria. She did admit that she has chronic back pain she has a fractured tailbone. Family states the patient was much more alert this morning as compared to what she was when she came in. Again history was limited due to respiratory distress as patient was tachypneic and tachycardic. Rest of the history was obtained from chart review and physician sign-out. Complete review of system was not obtainable Review of Systems 2 Review of Systems: ROS unobtainable: Yes unobtainable due to endotracheal tube, unobtainable due to medical condition and unobtainable due to mental status PMFSH Past Medical History Medical History Depression Anxiety Hypovitaminosis D Chronic ethmoidal sinusitis Left knee DJD Chronic right shoulder pain Left shoulder pain Anemia Immunosuppressed status Osteoarthritis Glaucoma Iron deficiency anemia Crohn's disease Gastroesophageal reflux disease Mixed hyperlipidemia Osteoporosis Psoriatic arthritis RLS (restless legs syndrome) Rheumatoid arthritis Surgical History Surgical History Status post cataract extraction of both eyes with insertion of intraocular lens S/P total knee arthroplasty LT TKA 05/18/23 Status post bilateral total hip replacement Status post ankle fusion With subsequent hardware removal and redo. Status post rotator cuff repair Bilateral. Status post cholecystectomy History of section Status post total right knee replacement History of temporal artery biopsy In October 2016. No pathologic abnormalities noted. Family History Family History Mother Family history of osteoporosis Cerebrovascular accident Family history of Alzheimer's disease Family history of coronary artery disease Acute myocardial infarction Family history of malignant melanoma Family history of malignant neoplasm of ovary Heart disease Father Family history of coronary artery disease Family history of heart disease in male family member before age 55 Family history of lung cancer, Onset Age: 48 Sibling Family history of lung cancer Family history of malignant melanoma Family history of malignant neoplasm of urinary bladder Heart disease Sibling Cancer Heart disease Other Family history of malignant neoplasm Hypertension Social History Social History Social History: The patient lives in [place] with her ex . They have been since 2006 but still live in the same home. They have 2 dogs that are mostly outside. 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 She is a lifelong nonsmoker and denies alcohol and drug abuse. She and her have 1 son. Code status: Full code Surrogate decision maker: Ex- and Debra (daughter in-law) Smoking status: Never smoker Additional smoking assessment comments: DENIES ANY FORM OF TOBACCO USE Alcohol intake: current Alcohol use details: Rare alcohol use once or twice a year Substance use: never Substance use type: does not use Do You Feel Safe in your Home?: Yes Lack of Transportation: No Lack of Food: Never True Current Housing: I Have Housing Concerned About Future Housing: No Difficulty Paying Gas/Electric Bills: No Difficulty Paying for Meds: No Currently Unemployed: No Education: Don't Know Difficulty w/ Childcare or Family Care: No Living arrangements: with family Occupation/Education: retired Gender identity (if verbalized by the patient): Female Sexual Orientation (if Verbalized by the Patient): Straight or Heterosexual Spiritual care concerns: No Agree to blood products: Yes Meds Home Medications and Allergies Home Medications ?Medication ?Instructions ?Recorded ?Confirmed ?Type ascorbic acid (vitamin C) 1,000 mg 1 gm PO DAILY 04/26/19 08/30/24 History tablet celecoxib 200 mg capsule 200 mg PO BID 04/26/19 08/30/24 History cholecalciferol (vitamin D3) 25 1,000 unit PO DAILY 04/26/19 08/30/24 History mcg (1,000 unit) capsule ferrous sulfate 325 mg (65 mg 325 mg PO DAILY 04/26/19 08/30/24 History iron) tablet (Feosol) folic acid 1 mg tablet 1 mg PO DAILY 04/26/19 08/30/24 History lactobacillus combination no.8 3 3,000 mmu cells PO DAILY 04/26/19 08/30/24 History billion cell capsule (Adult Probiotic) multivitamin 1 tablet PO DAILY 04/26/19 08/30/24 History magnesium 250 mg tablet 250 mg PO DAILY 03/04/20 08/30/24 History zinc 50 mg tablet 50 mg PO DAILY 03/04/20 08/30/24 History methotrexate sodium 2.5 mg tablet 2.5 mg PO .COMPLEX 01/21/21 08/30/24 History esomeprazole magnesium 40 mg 40 mg PO DAILY 02/03/22 08/30/24 History capsule,delayed release (Nexium) melatonin 10 mg capsule 10 mg PO DAILY PRN Insomnia 08/26/22 08/30/24 History tramadol 50 mg tablet 50 mg PO Q6H PRN Pain 01/27/23 08/30/24 History calcium 600 mg (as 1 tablet PO DAILY 05/04/23 08/30/24 History carbonate)-vitamin D3 10 mcg (400 unit) tablet (Calcium 600 + D(3)) hydroxychloroquine 200 mg tablet 200 mg PO DAILY 05/04/23 08/30/24 History sucralfate 1 gram tablet 1 g PO BID 05/04/23 08/30/24 History dextromethorphan-guaifenesin 30 See Rx Instructions PO Q12H PRN 06/21/23 08/30/24 Rx mg-600 mg tablet extended cough #30 tabs [id number] hr (Mucinex DM) fexofenadine 60 mg tablet (Glendy 60 mg PO Q12H 09/05/23 08/30/24 History Allergy) fluticasone propionate 50 1 spray intranasal PRN PRN Allergy 10/26/23 08/30/24 Rx mcg/actuation nasal Symptoms #16 grams spray,suspension prednisolone sodium phosphate 1 % 1 drp RIGHT EYE Q12H concern for 12/27/23 08/30/24 Rx eye drops glaucoma #10 mL escitalopram oxalate 20 mg tablet See Rx Instructions .Route 05/29/24 08/30/24 Rx .COMPLEX #90 tabs upadacitinib 15 mg tablet,extended 15 mg PO DAILY 05/29/24 08/30/24 History release 24 hr (Rinvoq) betamethasone valerate 0.1 % 1 applic topical BID #15 grams 07/19/24 08/30/24 Rx topical ointment alprazolam 0.5 mg tablet 0.5 mg PO BID PRN anxiety #60 tabs 07/30/24 08/30/24 Rx doxycycline hyclate 100 mg tablet 100 mg PO BID 08/30/24 08/30/24 History Allergies Allergy/AdvReac Type Severity Reaction Status Date / Time adalimumab Allergy Mild Itching Verified 08/07/24 11:55 codeine AdvReac Mild Itching Verified 08/07/24 11:55 Vital Signs Vital Signs - 24 hr 08/29/24 16:25 08/29/24 16:41 08/29/24 16:45 Temperature 38.3 C H Pulse Rate 140 H 140 H 140 H Respiratory Rate 22 H 32 H 20 Blood Pressure 110/72 110/72 120/76 Pulse Oximetry 95 Oxygen Delivery Room Air Oxygen Flow Rate Fraction of Inspired Oxygen 08/29/24 17:02 08/29/24 17:08 08/29/24 17:13 Temperature Pulse Rate 147 H 132 H Respiratory Rate 21 H 16 Blood Pressure 79/56 L 111/73 Pulse Oximetry 92 Oxygen Delivery Nasal Cannula Oxygen Flow Rate 2 Fraction of Inspired Oxygen 08/29/24 17:15 08/29/24 17:24 08/29/24 17:30 Temperature Pulse Rate 126 H 122 H 123 H Respiratory Rate 20 26 H Blood Pressure 114/87 125/78 Pulse Oximetry 95 100 Oxygen Delivery Oxygen Flow Rate Fraction of Inspired Oxygen 08/29/24 17:45 08/29/24 18:00 08/29/24 18:15 Temperature Pulse Rate 124 H 122 H 122 H Respiratory Rate 24 H 18 25 H Blood Pressure 121/75 117/67 120/69 Pulse Oximetry Oxygen Delivery Oxygen Flow Rate Fraction of Inspired Oxygen 08/29/24 18:30 08/29/24 18:45 08/29/24 19:02 Temperature 37.3 C Pulse Rate 120 H 121 H 121 H Respiratory Rate 28 H 27 H Blood Pressure 123/79 121/69 114/84 Pulse Oximetry 24 L Oxygen Delivery Oxygen Flow Rate Fraction of Inspired Oxygen 08/29/24 19:45 08/29/24 21:05 08/29/24 22:00 Temperature 36.9 C Pulse Rate 123 H 69 125 H Respiratory Rate 27 H 20 Blood Pressure 117/79 114/67 Pulse Oximetry 94 Oxygen Delivery Oxygen Flow Rate Fraction of Inspired Oxygen 08/29/24 22:45 08/29/24 23:14 08/30/24 00:00 Temperature 36.9 C Pulse Rate 152 H Respiratory Rate 28 H Blood Pressure 180/92 H Pulse Oximetry 97 100 Oxygen Delivery High Flow Therapy with Na High Flow Therapy with Na Oxygen Flow Rate 40 40 Fraction of Inspired Oxygen 50 50 08/30/24 00:00 08/30/24 00:56 08/30/24 01:03 Temperature 39.6 C H 39.6 C H Pulse Rate 142 H Respiratory Rate Blood Pressure Pulse Oximetry Oxygen Delivery Oxygen Flow Rate Fraction of Inspired Oxygen 08/30/24 02:09 08/30/24 02:22 08/30/24 03:45 Temperature 38.2 C H 38.1 C H Pulse Rate 144 H 139 H Respiratory Rate 20 Blood Pressure 128/60 Pulse Oximetry 86 L Oxygen Delivery Oxygen Flow Rate Fraction of Inspired Oxygen 08/30/24 04:00 08/30/24 04:00 08/30/24 04:12 Temperature Pulse Rate 137 H Respiratory Rate Blood Pressure Pulse Oximetry 99 93 Oxygen Delivery High Flow Therapy with Na High Flow Therapy with Na Oxygen Flow Rate 40 45 Fraction of Inspired Oxygen 60 60 08/30/24 06:32 08/30/24 06:56 08/30/24 07:02 Temperature 39.6 C H 39.6 C H Pulse Rate 136 H Respiratory Rate Blood Pressure Pulse Oximetry Oxygen Delivery Oxygen Flow Rate Fraction of Inspired Oxygen 08/30/24 08:00 08/30/24 09:30 08/30/24 10:23 Temperature 37.2 C Pulse Rate 134 H 135 H Respiratory Rate 26 H 19 Blood Pressure 134/74 Pulse Oximetry 95 Oxygen Delivery High Flow Therapy with Na Oxygen Flow Rate 45 Fraction of Inspired Oxygen 66 08/30/24 10:24 08/30/24 10:42 08/30/24 10:42 Temperature Pulse Rate 135 H 126 H 126 H Respiratory Rate 16 33 H 33 H Blood Pressure Pulse Oximetry Oxygen Delivery Oxygen Flow Rate Fraction of Inspired Oxygen Exam 2 Narrative: General: Pt is now sedated, intubated and on mechanical ventilation Lungs/Chest: Trachea central Coarse BS B/L, bibasilar crackles prior to intubation patient was in respiratory distress with tachypnea and use of accessory muscles and bilateral crack Cardiac: Tachycardia RRR. Normal S1 S2. No murmurs Circulation: Pedal pulses are intact and symmetrical. Abdomen: Decreased bowel sounds. . Soft. NT. ND. Extremities: No clubbing, cyanosis or edema. Warm : [place] in place Neurologic: Prior to intubation patient was AO x3 and was moving all 4 extremities, PERRL Skin: Edema with breakdown of the screen which appears to be popped blisters on right labia. Patient was examined in the presence of female financial planning consultant was patient's nurse. She also has several scabbed wounds on her both legs which are in various healing stage but no open or infected wound. Results Labs 08/30/24 03:54 08/30/24 03:54 Labs: Impressions Chest X-Ray 08/29/24 17:47 IMPRESSION: Severe multifocal pneumonia versus pulmonary edema, less likely Head CT 08/29/24 21:55 Impression: No acute intracranial hemorrhage or suspicious mass effect. Chest/Abdomen/Pelvis CT 08/29/24 21:57 IMPRESSION: Dense bilateral multifocal infiltrates, predominantly perihilar, as detailed above. No additional source is detected for patient's profound sepsis. Chest X-Ray 08/30/24 06:04 Impression: Worsening diffuse patchy bilateral pulmonary consolidation. Correlate for severe pulmonary edema or diffuse pneumonia, or possibly RDS. Short CBC 08/29/24 08/30/24 Range/Units 17:08 03:54 WBC 9.2 7.4 (4.5-10.0) K/mm3 Hgb 9.3 L 8.5 L (12.0-15.0) g/dL Hct 29.5 L 27.7 L (37.0-47.0) % Plt Count 495 H 488 H (150-375) k/mm3 BMP 08/29/24 08/30/24 17:08 03:54 Sodium 134 L 137 Potassium 3.1 L 3.3 L Chloride 98 112 H Carbon Dioxide 19 L 14 L BUN 18 H 14 Creatinine 1.53 H 0.79 Glucose 131 H 108 Calcium 8.6 7.9 L Liver Function 08/29/24 08/30/24 Range/Units 17:08 03:54 Total Bilirubin 0.3 0.3 (0.2-1.3) mg/dL AST 122 H 240 H (14-36) U/L ALT 54 H 63 H (6-35) U/L Alkaline Phosphatase 127 H 113 (38-126) U/L Albumin 2.9 L 2.5 L (3.5-5.1) g/dL Urine 08/29/24 Range/Units 17:08 Urine Color Dark yellow (Yellow) Urine Appearance Turbid H (Clear) Urine pH 5.0 (5.0-9.0) Ur Specific [place] 1.022 (1.001-1.035) Urine Protein 2+ H (Negative) mg/dL Urine Glucose (UA) Negative (Negative) mg/dL Quality VTE Prophylaxis VTE prophylaxis: pharmacologic ordered Hospitalist MIPS Advance Care Plan I have confirmed that the patient's Advanced Care Plan is present, code status is documented, or surrogate decision maker is listed in patient medical record.: Yes Medication Reconciliation I have utilized all available resources to obtain, update and review the patients current medications (includes all prescriptions, OTC, herbals, cannabis, and nutritional supplements).: Yes
[2024-08-30 11:02] LABS: Alveolar/Arterial O2 Gradient 507.1 mmHg; Fractional Inspired Oxygen 100 %; HCO3 ABG 18.3 mEq/l (22.0-26.0); Oxygen Content ABG 12.6 %vol (16.0-22.0); Oxygen Saturation ABG 99.2 % (95.0-100.0); PCO2 ABG 29.3 mmHg (35.0-45.0); PO2 ABG 176.6 mmHg (80.0-100.0); PO2 FiO2 Ratio Arterial Blood 1.77 %
[2024-08-30] MEDS: PROPOFOL IV EMULSION 100 ML 6.01 MG IV CONT (11:06)
[2024-08-30 11:09] LABS: Site Drawn RIGHT RADIAL
[2024-08-30 11:11] LABS: Arterial Blood Gas Tidal Volume 370 ml; Arterial Blood Gas Ventilator rate 20 /MIN
[2024-08-30] MEDS: LIDOCAINE 1% PF INJ 5 ML VIAL INFILTRATE (11:50)
[2024-08-30] MEDS: DEXTROSE 5%/0.9% SOD CHL 1,000 ML 50 ML IV CONT ×2 (12:16→20:58)
[2024-08-30] MEDS: MINERAL OIL/WHITE PETROLATUM OINTMENT 1 APPLIC EACH EYE ×2 (12:17→20:56)
[2024-08-30] MEDS: PANTOPRAZOLE SODIUM IV 40 MG VIAL IV PUSH ×2 (12:17→20:57)
[2024-08-30] MEDS: CEFEPIME 2 GM/NS 50 ML 2 GM/50 ML BAG IVPB ×2 (12:21→20:56)
[2024-08-30] MEDS: VANCOMYCIN 1,250 MG/NS 250 ML 1,250 MG/250 ML BAG 166.67 MG IVPB (12:33)
[2024-08-30] MEDS: PERFLUTREN LIPID MICROSPHERES 1.5 ML VIAL DILUTED TO 10 ML TOTAL VOLUME IV PUSH (13:00)
--- NOTE | 2024-08-30 13:11 | IVDEFINITY ---
Prior to administration of IV Definity the patient was educated on the risks and benefits of the imaging enhancing agent including potential adverse side effects. The patient verbalized understanding. Allergies were verified. No exclusion criteria were identified and at least one of the following inclusion criteria were met: 1) physician request, 2) patient technically difficult to image (per the [place] [employer] of Echocardi[employer] guidelines of two or more segments not discernable within the apical view), or 3) questionable left ventricular function. ?
--- NOTE | 2024-08-30 13:49 | PM.CNPUL ---
Assessment and Plan Assessment and plan (1) Acute respiratory failure: Code(s): J96.00 - Acute respiratory failure, unspecified whether with hypoxia or hypercapnia Status: Acute Assessment and Plan: 68-year-old with a history of rheumatoid arthritis and Crohn's disease on Rinvoq 15 a day, methotrexate 20 mg q.week, prednisone 5 a day, hydroxychloroquine 200 a day. Recently she was diagnosed clinically with herpes infection of the buttocks, labia and face and treated with valacyclovir. She presents now with acute hypoxemic respiratory failure requiring intubation, Diffuse consolidative infiltrates in a perihilar region with scattered infiltrates peripherally and in the lower lobe. Currently on 70% and 8 of PEEP. no available bronchoscopy times today. Etiology includes: pneumonia ( bacterial, viral, fungal, AFB), aspiration pneumonitis, alveolar hemorrhage. Plan: will perform bronchoscopy with BAL on 08/31/2024 if her oxygenation improves. Urine Legionella, urine pneumococcal, serum mycoplasma IgM pending. I will order respiratory pathogen panel. No send HIV screen. Currently patient on vancomycin, cefepime and azithromycin. I will change azithromycin to Levaquin for continued atypical coverage and added gram-negative coverage. Patient is on acyclovir for possible herpes pneumonia and will continue. Discussed with multiple family members, and Dr. James. Will follow with you. History of Present Illness History of Present Illness Consult date: 08/30/24 Chief complaint: sepsis, pneumonia, meredith, hypokalemia Narrative: 08/30/2024: This is a new pulmonary consult for pneumonia and bronchoscopy 68-year-old with a history of rheumatoid arthritis, Crohn's, GERD. regarding patient's rheumatoid arthritis her family tells me she has been on medicines for 30 years but is not taking any injectable medicines for the last year although 1 family member sink she might be on injectable medicines. They recognize the words Humira and Enbrel. home medicines include Rinvoq 15 mg p.o. q.day, prednisone 5 a day, methotrexate 20 mg weekly and hydroxychloroquine 20 mg a day. She has frequently received hand injections as well as shoulder injections. At baseline the patient has no chronic respiratory issues. She has been using a crutch for 1 month because of pain in her back. She is a never smoker, has no respiratory limitations in her activities of daily living and has no history of aspiration. approximately 2 months ago the patient noticed a blistering sore on her buttocks that initially was treated with an ointment. She then went to a newspaper photo editor with said this was something that came and from inside her that everybody has and prescribed a medicine called Valacyclovir. This lesion grew in spread to her labia and spread to her mouth. Family tells me she was in her usual state of health and had no breathing issues on 08/27/2024. On 08/28 the patient ate her dinner and was feeling fine according to the . She had no breathing issues that he noticed. He noticed no fever, chills, rigors. 08/29/2024 patient woke up and was confused but there was no evidence of cough, fever or breathing related issues. EMS found a glucose of 29. Presented to the emergency department at 4:40 p.m. with tachycardia and was treated with 3 L IV fluid. She required 2 L nasal cannula saturations 92%. White blood cell count 9.2, creatinine 1.53, bands 10%. Lactic acid 8.4, procalcitonin 24.1, urine was turbid, trace leukocyte Estrace positive 2+ bacteria, COVID influenza RSV RT PCR negative. chest x-ray did show diffuse interstitial alveolar infiltrates all lung craven. CT scan of the chest showed dense consolidations in the central Perihilar predominance with very few patchy infiltrates peripherally and in the lower lobes. Patient was started on ceftriaxone and azithromycin. patient had worsening oxygenation requiring high-flow nasal canula 08/30/2024 Patient was in respiratory distress. She was A&O x4 according to the curriculum development coordinator and was intubated. Patient currently remains intubated on 70% and 8 of PEEP. She Had a fever this morning of 39.6. White blood cell count 7.4, creatinine 0.79, CRP greater than 40, ABG on CMV rate of 20, 100% FiO2 7.41/29/177. Blood cultures no growth x2, urine micro and sputum pending. DATA: 08/30/24: Summary 1. Definity contrast administered improved wall motion interpretation. 2. Left ventricular chamber dimension is normal. 3. Left ventricular systolic function is normal, estimated at 55-60. 4. The left ventricular diastolic function is grade I diastolic dysfunction. 5. E/e' 6 is not elevated. 6. There is trace aortic valve regurgitation. 7. The mitral valve has a mildly calcified annulus. 8. There is mild tricuspid valve regurgitation. 9. No pulmonary hypertension, estimated pulmonary arterial systolic pressure is 32 mmHg. Left Ventricle Definity contrast administered improved wall motion interpretation. Left ventricular chamber dimension is normal. Left ventricular systolic function is normal, estimated at 55-60. The left ventricular diastolic function is grade I diastolic dysfunction. E/e' 6 is not elevated. Right Ventricle Right ventricular chamber dimension is normal. Right ventricular systolic function is normal. Left Atria Left atrial chamber dimension is normal. Right Atria Right atrial chamber dimension is normal. 08/29/2024: CLINICAL INDICATION: Sepsis COMPARISON: None. TECHNIQUE: Multiple contiguous axial images of the chest, abdomen and pelvis were performed without the administration of intravenous contrast The dose-length product (DLP) was 500.82 mGy-cm. Automated exposure control and iterative reconstruction technique were employed. FINDINGS/OBSERVATIONS: LUNG: Dense bilateral infiltrates with air bronchograms within the bilateral upper, right middle and bilateral lower lobes, with relative sparing of the bilateral bases. MEDIASTINUM: Limited evaluation without intravenous contrast. HEART: The heart is of normal size, with a small pericardial effusion. SOFT TISSUES OF THE CHEST: Unremarkable. Liver: The liver demonstrates homogeneous attenuation and is not enlarged. Gallbladder and biliary system: The gallbladder is surgically absent.. Pancreas: Limited evaluation of the pancreas secondary to the lack of intravenous contrast. Spleen: The spleen demonstrates homogeneous attenuation and is not enlarged. Kidneys: 3 mm nonobstructing stone within the lower pole of the left kidney. The remainder of the bilateral kidneys are otherwise unremarkable, without hydronephrosis or additional renal calculi. Adrenal glands: Unremarkable. Gastrointestinal tract: Fecal stasis within the distal colon and rectum. Colonic diverticulosis without inflammatory change. Appendix: The appendix is not definitively visualized. However, no pericecal inflammatory change is identified suggest the presence of acute appendicitis. Vasculature: Trace calcified atherosclerotic disease, without aneurysmal dilatation. Lymph nodes: Limited evaluation without intravenous contrast. Pelvic structures: The bladder is decompressed with a Obregon catheter, limiting its evaluation. Limited evaluation of the deep pelvis secondary to metallic streak artifact from patient's bilateral hip prostheses. Body wall and musculoskeletal: Age advanced degenerative disease within the thoracic and lumbosacral spines. 33 degrees of levoscoliotic curvature of the lumbar spine. IMPRESSION: Dense bilateral multifocal infiltrates, predominantly perihilar, as detailed above. No additional source is detected for patient's profound sepsis. Review of Systems Review of Systems: ROS unobtainable: Yes unobtainable due to endotracheal tube and unobtainable due to mental status PMFSH Past Medical History Medical History Depression Anxiety Hypovitaminosis D Chronic ethmoidal sinusitis Left knee DJD Chronic right shoulder pain Left shoulder pain Anemia Immunosuppressed status Osteoarthritis Glaucoma Iron deficiency anemia Crohn's disease Gastroesophageal reflux disease Mixed hyperlipidemia Osteoporosis Psoriatic arthritis RLS (restless legs syndrome) Rheumatoid arthritis Surgical History Surgical History Status post cataract extraction of both eyes with insertion of intraocular lens S/P total knee arthroplasty LT TKA 05/18/23 Status post bilateral total hip replacement Status post ankle fusion With subsequent hardware removal and redo. Status post rotator cuff repair Bilateral. Status post cholecystectomy History of section Status post total right knee replacement History of temporal artery biopsy In October 2016. No pathologic abnormalities noted. Family History Family History Mother Family history of osteoporosis Cerebrovascular accident Family history of Alzheimer's disease Family history of coronary artery disease Acute myocardial infarction Family history of malignant melanoma Family history of malignant neoplasm of ovary Heart disease Father Family history of coronary artery disease Family history of heart disease in male family member before age 55 Family history of lung cancer, Onset Age: 48 Sibling Family history of lung cancer Family history of malignant melanoma Family history of malignant neoplasm of urinary bladder Heart disease Sibling Cancer Heart disease Other Family history of malignant neoplasm Hypertension Social History Social History Social History: The patient lives in [place] with her ex . They have been since 2006 but still live in the same home. They have 2 dogs that are mostly outside. 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 She is a lifelong nonsmoker and denies alcohol and drug abuse. She and her have 1 son. Code status: Full code Surrogate decision maker: Ex- and Debra (daughter in-law) Smoking status: Never smoker Additional smoking assessment comments: DENIES ANY FORM OF TOBACCO USE Alcohol intake: current Alcohol use details: Rare alcohol use once or twice a year Substance use: never Substance use type: does not use Do You Feel Safe in your Home?: Yes Lack of Transportation: No Lack of Food: Never True Current Housing: I Have Housing Concerned About Future Housing: No Difficulty Paying Gas/Electric Bills: No Difficulty Paying for Meds: No Currently Unemployed: No Education: Don't Know Difficulty w/ Childcare or Family Care: No Living arrangements: with family Occupation/Education: retired Gender identity (if verbalized by the patient): Female Sexual Orientation (if Verbalized by the Patient): Straight or Heterosexual Spiritual care concerns: No Agree to blood products: Yes Meds Home Medications and Allergies Home Medications ?Medication ?Instructions ?Recorded ?Confirmed ?Type ascorbic acid (vitamin C) 1,000 mg 1 gm PO DAILY 04/26/19 08/30/24 History tablet celecoxib 200 mg capsule 200 mg PO BID 04/26/19 08/30/24 History cholecalciferol (vitamin D3) 25 1,000 unit PO DAILY 04/26/19 08/30/24 History mcg (1,000 unit) capsule ferrous sulfate 325 mg (65 mg 325 mg PO DAILY 04/26/19 08/30/24 History iron) tablet (Feosol) folic acid 1 mg tablet 1 mg PO DAILY 04/26/19 08/30/24 History lactobacillus combination no.8 3 3,000 mmu cells PO DAILY 04/26/19 08/30/24 History billion cell capsule (Adult Probiotic) multivitamin 1 tablet PO DAILY 04/26/19 08/30/24 History magnesium 250 mg tablet 250 mg PO DAILY 03/04/20 08/30/24 History zinc 50 mg tablet 50 mg PO DAILY 03/04/20 08/30/24 History methotrexate sodium 2.5 mg tablet 2.5 mg PO .COMPLEX 01/21/21 08/30/24 History esomeprazole magnesium 40 mg 40 mg PO DAILY 02/03/22 08/30/24 History capsule,delayed release (Nexium) melatonin 10 mg capsule 10 mg PO DAILY PRN Insomnia 08/26/22 08/30/24 History tramadol 50 mg tablet 50 mg PO Q6H PRN Pain 01/27/23 08/30/24 History calcium 600 mg (as 1 tablet PO DAILY 05/04/23 08/30/24 History carbonate)-vitamin D3 10 mcg (400 unit) tablet (Calcium 600 + D(3)) hydroxychloroquine 200 mg tablet 200 mg PO DAILY 05/04/23 08/30/24 History sucralfate 1 gram tablet 1 g PO BID 05/04/23 08/30/24 History dextromethorphan-guaifenesin 30 See Rx Instructions PO Q12H PRN 06/21/23 08/30/24 Rx mg-600 mg tablet extended cough #30 tabs [id number] hr (Mucinex DM) fexofenadine 60 mg tablet (Glendy 60 mg PO Q12H 09/05/23 08/30/24 History Allergy) fluticasone propionate 50 1 spray intranasal PRN PRN Allergy 10/26/23 08/30/24 Rx mcg/actuation nasal Symptoms #16 grams spray,suspension prednisolone sodium phosphate 1 % 1 drp RIGHT EYE Q12H concern for 12/27/23 08/30/24 Rx eye drops glaucoma #10 mL escitalopram oxalate 20 mg tablet See Rx Instructions .Route 05/29/24 08/30/24 Rx .COMPLEX #90 tabs upadacitinib 15 mg tablet,extended 15 mg PO DAILY 05/29/24 08/30/24 History release 24 hr (Rinvoq) betamethasone valerate 0.1 % 1 applic topical BID #15 grams 07/19/24 08/30/24 Rx topical ointment alprazolam 0.5 mg tablet 0.5 mg PO BID PRN anxiety #60 tabs 07/30/24 08/30/24 Rx doxycycline hyclate 100 mg tablet 100 mg PO BID 08/30/24 08/30/24 History Allergies Allergy/AdvReac Type Severity Reaction Status Date / Time adalimumab Allergy Mild Itching Verified 08/07/24 11:55 codeine AdvReac Mild Itching Verified 08/07/24 11:55 Vital Signs Vital Signs - 24 hr 08/29/24 16:25 08/29/24 16:41 08/29/24 16:45 Temperature 38.3 C H Pulse Rate 140 H 140 H 140 H Respiratory Rate 22 H 32 H 20 Blood Pressure 110/72 110/72 120/76 Pulse Oximetry 95 Oxygen Delivery Room Air Oxygen Flow Rate Fraction of Inspired Oxygen 08/29/24 17:02 08/29/24 17:08 08/29/24 17:13 Temperature Pulse Rate 147 H 132 H Respiratory Rate 21 H 16 Blood Pressure 79/56 L 111/73 Pulse Oximetry 92 Oxygen Delivery Nasal Cannula Oxygen Flow Rate 2 Fraction of Inspired Oxygen 08/29/24 17:15 08/29/24 17:24 08/29/24 17:30 Temperature Pulse Rate 126 H 122 H 123 H Respiratory Rate 20 26 H Blood Pressure 114/87 125/78 Pulse Oximetry 95 100 Oxygen Delivery Oxygen Flow Rate Fraction of Inspired Oxygen 08/29/24 17:45 08/29/24 18:00 08/29/24 18:15 Temperature Pulse Rate 124 H 122 H 122 H Respiratory Rate 24 H 18 25 H Blood Pressure 121/75 117/67 120/69 Pulse Oximetry Oxygen Delivery Oxygen Flow Rate Fraction of Inspired Oxygen 08/29/24 18:30 08/29/24 18:45 08/29/24 19:02 Temperature 37.3 C Pulse Rate 120 H 121 H 121 H Respiratory Rate 28 H 27 H Blood Pressure 123/79 121/69 114/84 Pulse Oximetry 24 L Oxygen Delivery Oxygen Flow Rate Fraction of Inspired Oxygen 08/29/24 19:45 08/29/24 21:05 08/29/24 22:00 Temperature 36.9 C Pulse Rate 123 H 69 125 H Respiratory Rate 27 H 20 Blood Pressure 117/79 114/67 Pulse Oximetry 94 Oxygen Delivery Oxygen Flow Rate Fraction of Inspired Oxygen 08/29/24 22:45 08/29/24 23:14 08/30/24 00:00 Temperature 36.9 C Pulse Rate 152 H Respiratory Rate 28 H Blood Pressure 180/92 H Pulse Oximetry 97 100 Oxygen Delivery High Flow Therapy with Na High Flow Therapy with Na Oxygen Flow Rate 40 40 Fraction of Inspired Oxygen 50 50 08/30/24 00:00 08/30/24 00:56 08/30/24 01:03 Temperature 39.6 C H 39.6 C H Pulse Rate 142 H Respiratory Rate Blood Pressure Pulse Oximetry Oxygen Delivery Oxygen Flow Rate Fraction of Inspired Oxygen 08/30/24 02:09 08/30/24 02:22 08/30/24 03:45 Temperature 38.2 C H 38.1 C H Pulse Rate 144 H 139 H Respiratory Rate 20 Blood Pressure 128/60 Pulse Oximetry 86 L Oxygen Delivery Oxygen Flow Rate Fraction of Inspired Oxygen 08/30/24 04:00 08/30/24 04:00 08/30/24 04:12 Temperature Pulse Rate 137 H Respiratory Rate Blood Pressure Pulse Oximetry 99 93 Oxygen Delivery High Flow Therapy with Na High Flow Therapy with Na Oxygen Flow Rate 40 45 Fraction of Inspired Oxygen 60 60 08/30/24 06:32 08/30/24 06:56 08/30/24 07:02 Temperature 39.6 C H 39.6 C H Pulse Rate 136 H Respiratory Rate Blood Pressure Pulse Oximetry Oxygen Delivery Oxygen Flow Rate Fraction of Inspired Oxygen 08/30/24 08:00 08/30/24 08:00 08/30/24 08:00 Temperature 37.2 C 37.1 C Pulse Rate 134 H Respiratory Rate 26 H Blood Pressure 134/74 Pulse Oximetry 95 Oxygen Delivery High Flow Therapy with Na Oxygen Flow Rate 45 Fraction of Inspired Oxygen 65 08/30/24 09:30 08/30/24 10:23 08/30/24 10:24 Temperature Pulse Rate 135 H 135 H Respiratory Rate 19 16 Blood Pressure Pulse Oximetry 95 Oxygen Delivery High Flow Therapy with Na Oxygen Flow Rate 45 Fraction of Inspired Oxygen 66 08/30/24 10:42 08/30/24 10:42 08/30/24 10:53 Temperature Pulse Rate 126 H 126 H 126 H Respiratory Rate 33 H 33 H 33 H Blood Pressure Pulse Oximetry Oxygen Delivery Oxygen Flow Rate Fraction of Inspired Oxygen 08/30/24 10:54 08/30/24 11:00 08/30/24 11:04 Temperature Pulse Rate 126 H 130 H 121 H Respiratory Rate 33 H 25 H Blood Pressure Pulse Oximetry Oxygen Delivery Oxygen Flow Rate Fraction of Inspired Oxygen 08/30/24 11:05 08/30/24 11:06 08/30/24 12:00 Temperature Pulse Rate 121 H 131 H 108 H Respiratory Rate 33 H 33 H 30 H Blood Pressure Pulse Oximetry Oxygen Delivery Oxygen Flow Rate Fraction of Inspired Oxygen 08/30/24 12:00 08/30/24 12:00 08/30/24 12:00 Temperature 37.1 C Pulse Rate 108 H 108 H 109 H Respiratory Rate 30 H 30 H 23 H Blood Pressure 106/71 Pulse Oximetry 93 Oxygen Delivery Oxygen Flow Rate Fraction of Inspired Oxygen 08/30/24 12:00 08/30/24 12:00 08/30/24 12:00 Temperature Pulse Rate 105 H 105 H Respiratory Rate 21 H Blood Pressure Pulse Oximetry 92 Oxygen Delivery Mechanical Ventilation Oxygen Flow Rate Fraction of Inspired Oxygen 70 Exam Const: General: comfortable Orientation/consciousness: oriented to person, oriented to place and oriented to time Other: sedated and intubated HENMT: Head: normal to inspection Ears: hearing grossly normal bilaterally Eyes: General: appearance normal, both eyes and all related structures Neck: Neck: normal visual inspection Chest: Chest palpation & inspection: normal inspection of the chest Resp: Effort & Inspection: normal respiratory effort and able to speak in complete sentences Auscultation: crackles, no rales, no rhonchi, no wheezes and lung sounds not diminished Other: coarse breath sounds with crackles bilaterally Cardio: Jugular venous distension: no JVD GI: Inspection: normal to inspection GI Palp: No abdominal tenderness Skin: General skin exam: normal color Neuro: Other: intubated and sedated. Extrem: General: normal to inspection Results Laboratory Findings 08/30/24 03:54 08/30/24 03:54 ABG, PT/INR, D-dimer: ABG ABG pH 7.413 (7.350-7.450) 08/30/24 11:00 ABG pCO2 29.3 mmHg (35.0-45.0) L 08/30/24 11:00 ABG pO2 176.6 mmHg (80.0-100.0) H 08/30/24 11:00 ABG O2 Saturation 99.2 % (95.0-100.0) 08/30/24 11:00 PT/INR, D-dimer PT 16.5 Seconds (11.1-14.7) H 08/29/24 17:08 INR 1.3 08/29/24 17:08 Abnormal lab findings: Abnormal Labs 08/29/24 08/29/24 08/29/24 17:08 18:28 19:10 RBC 3.06 L Hgb 9.3 L Hct 29.5 L MCHC 31.5 L RDW 24.3 H Plt Count 495 H Neutrophils % (Manual) 74 H Band Neutrophils % 10 H Lymphocytes % (Manual) 7.0 L Abs Neuts (Manual) 7.72 H Abs Lymphs (Manual) 0.64 L PT 16.5 H APTT 41.0 H ABG pH ABG pCO2 27.0 L ABG pO2 ABG HCO3 15.6 L ABG O2 Saturation ABG O2 Content 11.1 L Reduced Hemoglobin 5.1 H Total Hemoglobin 8.3 L Sodium 134 L Potassium 3.1 L Chloride Carbon Dioxide 19 L Anion Gap 17 H BUN 18 H Creatinine 1.53 H Estimated GFR 34 L Glucose 131 H POC Capillary Glucose 29 L* Lactic Acid 8.4 H* Calcium Phosphorus Magnesium Iron TIBC % Saturation Ferritin AST 122 H ALT 54 H Alkaline Phosphatase 127 H C-Reactive Protein Total Protein 5.3 L Albumin 2.9 L Vitamin B12 Urine Appearance Turbid H Urine Protein 2+ H Urine Ketones Trace H Ur Blood (Man) 3+ H Urine Bilirubin 1+ H Leukocyte Esterase Rfl Trace H Urine RBC 21-50 H Urine WBC 6-10 H Ur Squamous Epith Cells Many H Urine Bacteria 2+ H 08/29/24 08/29/24 08/29/24 19:12 19:44 23:12 RBC Hgb Hct MCHC RDW Plt Count Neutrophils % (Manual) Band Neutrophils % Lymphocytes % (Manual) Abs Neuts (Manual) Abs Lymphs (Manual) PT APTT ABG pH ABG pCO2 ABG pO2 ABG HCO3 ABG O2 Saturation ABG O2 Content Reduced Hemoglobin Total Hemoglobin Sodium Potassium Chloride Carbon Dioxide Anion Gap BUN Creatinine Estimated GFR Glucose POC Capillary Glucose 30 L* Lactic Acid 3.3 H 4.9 H* Calcium Phosphorus Magnesium Iron TIBC % Saturation Ferritin AST ALT Alkaline Phosphatase C-Reactive Protein Total Protein Albumin Vitamin B12 Urine Appearance Urine Protein Urine Ketones Ur Blood (Man) Urine Bilirubin Leukocyte Esterase Rfl Urine RBC Urine WBC Ur Squamous Epith Cells Urine Bacteria 08/29/24 08/29/24 08/30/24 23:16 23:56 00:19 RBC Hgb Hct MCHC RDW Plt Count Neutrophils % (Manual) Band Neutrophils % Lymphocytes % (Manual) Abs Neuts (Manual) Abs Lymphs (Manual) PT APTT ABG pH ABG pCO2 23.0 L* ABG pO2 ABG HCO3 15.1 L ABG O2 Saturation ABG O2 Content 13.3 L Reduced Hemoglobin Total Hemoglobin 9.8 L Sodium Potassium Chloride Carbon Dioxide Anion Gap BUN Creatinine Estimated GFR Glucose POC Capillary Glucose 55 L* 138 H Lactic Acid Calcium Phosphorus Magnesium Iron TIBC % Saturation Ferritin AST ALT Alkaline Phosphatase C-Reactive Protein Total Protein Albumin Vitamin B12 Urine Appearance Urine Protein Urine Ketones Ur Blood (Man) Urine Bilirubin Leukocyte Esterase Rfl Urine RBC Urine WBC Ur Squamous Epith Cells Urine Bacteria 08/30/24 08/30/24 08/30/24 01:55 03:36 03:42 RBC Hgb Hct MCHC RDW Plt Count Neutrophils % (Manual) Band Neutrophils % Lymphocytes % (Manual) Abs Neuts (Manual) Abs Lymphs (Manual) PT APTT ABG pH 7.485 H ABG pCO2 22.8 L* ABG pO2 61.0 L ABG HCO3 16.8 L ABG O2 Saturation 93.7 L ABG O2 Content 10.8 L Reduced Hemoglobin 7.3 H Total Hemoglobin 8.3 L Sodium Potassium Chloride Carbon Dioxide Anion Gap BUN Creatinine Estimated GFR Glucose POC Capillary Glucose 119 H 110 H Lactic Acid Calcium Phosphorus Magnesium Iron TIBC % Saturation Ferritin AST ALT Alkaline Phosphatase C-Reactive Protein Total Protein Albumin Vitamin B12 Urine Appearance Urine Protein Urine Ketones Ur Blood (Man) Urine Bilirubin Leukocyte Esterase Rfl Urine RBC Urine WBC Ur Squamous Epith Cells Urine Bacteria 08/30/24 08/30/24 08/30/24 03:54 08:44 09:31 RBC 2.81 L Hgb 8.5 L Hct 27.7 L MCHC 30.7 L RDW 24.2 H Plt Count 488 H Neutrophils % (Manual) Band Neutrophils % 13 H Lymphocytes % (Manual) 13.0 L Abs Neuts (Manual) Abs Lymphs (Manual) 0.96 L PT APTT ABG pH 7.499 H ABG pCO2 23.2 L* ABG pO2 65.5 L ABG HCO3 17.6 L ABG O2 Saturation 94.9 L ABG O2 Content 11.2 L Reduced Hemoglobin 5.8 H Total Hemoglobin 8.5 L Sodium Potassium 3.3 L Chloride 112 H Carbon Dioxide 14 L Anion Gap BUN Creatinine Estimated GFR Glucose POC Capillary Glucose 120 H Lactic Acid Calcium 7.9 L Phosphorus 2.0 L Magnesium 1.5 L Iron 29 L TIBC 197 L % Saturation 15 L Ferritin 908.00 H AST 240 H ALT 63 H Alkaline Phosphatase C-Reactive Protein > 40.0 H Total Protein 4.8 L Albumin 2.5 L Vitamin B12 > 1000.0 H Urine Appearance Urine Protein Urine Ketones Ur Blood (Man) Urine Bilirubin Leukocyte Esterase Rfl Urine RBC Urine WBC Ur Squamous Epith Cells Urine Bacteria 08/30/24 11:00 RBC Hgb Hct MCHC RDW Plt Count Neutrophils % (Manual) Band Neutrophils % Lymphocytes % (Manual) Abs Neuts (Manual) Abs Lymphs (Manual) PT APTT ABG pH ABG pCO2 29.3 L ABG pO2 176.6 H ABG HCO3 18.3 L ABG O2 Saturation ABG O2 Content 12.6 L Reduced Hemoglobin Total Hemoglobin 8.8 L Sodium Potassium Chloride Carbon Dioxide Anion Gap BUN Creatinine Estimated GFR Glucose POC Capillary Glucose Lactic Acid Calcium Phosphorus Magnesium Iron TIBC % Saturation Ferritin AST ALT Alkaline Phosphatase C-Reactive Protein Total Protein Albumin Vitamin B12 Urine Appearance Urine Protein Urine Ketones Ur Blood (Man) Urine Bilirubin Leukocyte Esterase Rfl Urine RBC Urine WBC Ur Squamous Epith Cells Urine Bacteria Diagnostic Findings Additional studies: ITS Impressions Chest X-Ray 08/29/24 17:47 IMPRESSION: Severe multifocal pneumonia versus pulmonary edema, less likely Head CT 08/29/24 21:55 Impression: No acute intracranial hemorrhage or suspicious mass effect. Chest/Abdomen/Pelvis CT 08/29/24 21:57 IMPRESSION: Dense bilateral multifocal infiltrates, predominantly perihilar, as detailed above. No additional source is detected for patient's profound sepsis. Chest X-Ray 08/30/24 06:04 Impression: Worsening diffuse patchy bilateral pulmonary consolidation. Correlate for severe pulmonary edema or diffuse pneumonia, or possibly RDS. Chest X-Ray 08/30/24 11:00 IMPRESSION: Bilateral pneumonia. Differential include pulmonary edema. Clinical correlation advised. Abdomen X-Ray 08/30/24 11:02
[2024-08-30] MEDS: HYDROCORTISONE SODIUM SUCCINATE 100 MG/2 ML VIAL IV PUSH ×2 (13:50→20:57)
[2024-08-30] MEDS: CENTRAL LINE FLUSH 10 ML IV PUSH ×2 (13:51→20:57)
[2024-08-30] MEDS: ACYCLOVIR 200 MG CAPSULE 400 MG FEED TUBE ×2 (13:51→20:57)
--- NOTE | 2024-08-30 14:00 | PC.NURSE ---
This patient, Ina Garcia, was transferred to ICU 5 on 08/30/24 at 1005. Personal belongings sent with patient. Report given to Daina RN. Appropriate documentation sent with patient.
[2024-08-30] MEDS: levoFLOXacin 750 MG/D5W 150 ML 750 MG/150 ML BAG 100 MG IVPB (14:49)
--- NOTE | 2024-08-30 15:09 | PC.NURSE ---
10:05-Patient received from Room 204. Transfered to bed ICU 5. Dr. James at bedside. Report received from [facility]. Preparing for intubation.
[2024-08-30 18:40] LABS: Cannabinoid Screen Urine Negative (Negative)
[2024-08-30] MEDS: MIDAZOLAM 100MG/NS 100ML(*CRX) 100 MG/100 ML BAG 9 MG IV CONT (20:58)
[2024-08-30] MEDS: prednisoLONE ACETATE 1% OPHTH 5 ML 1 DROP RIGHT EYE (21:22)
[2024-08-30] MEDS: POTASSIUM PHOS,M-BASIC-D-BASIC 40 MMOL in SODIUM CHLORIDE 0.9% IV 250 ML 43.89 MMOL IVPB (21:23)
[2024-08-30] MEDS: FENTANYL 2,500MCG/NS250ML(*CRX 2,500 MCG/250 ML BAG 12.5 MCG IV CONT (22:27)
[2024-08-31] VITALS (48 sets, daily range): BP systolic 84–112; BP diastolic 60–84; PULSE 107–148; RESP 20–34; TEMP 36.8–38.1; O2SAT 91–100
[2024-08-31] MEDS: MIDAZOLAM HCL (*CRX) 2 MG/2 ML VIAL 4 MG IV PUSH ×2 (00:37→22:00)
[2024-08-31 05:40] LABS: Alveolar/Arterial O2 Gradient 405.9 mmHg; Arterial Blood Gas Ventilator rate 20 /MIN; Carboxyhemoglobin 0.6 % THb (0-2.0); Fractional Inspired Oxygen 70 %; HCO3 ABG 17.1 mEq/l (22.0-26.0); Methemoglobin ABG 0.3 %THb (0-1.5); Modified Allen's Test Unable to perform; Oxygen Content ABG 12.7 %vol (16.0-22.0); Oxygen Saturation ABG 91.0 % (95.0-100.0); PCO2 ABG 30.3 mmHg (35.0-45.0); PO2 ABG 60.6 mmHg (80.0-100.0); PO2 FiO2 Ratio Arterial Blood 0.87 %; Reduced Hemoglobin 9.9 %THb (0-5.0); Site Drawn LEFT RADIAL
[2024-08-31 05:41] LABS: Arterial Blood Gas Tidal Volume 370 ml
[2024-08-31 06:04] LABS: Hematocrit 25.8 % (37.0-47.0); Hemoglobin 8.2 g/dL (12.0-15.0); Mean Corpuscular HGB Conc 31.8 g/dl (32-36); Mean Corpuscular Hemoglobin 30.7 pg (26-34); Mean Corpuscular Volume 96.6 fl (80-100); Platelet Count Result 336 k/mm3 (150-375); Red Blood Count 2.67 M/mm3 (4.2-5.4); White Blood Count 14.8 K/mm3 (4.5-10.0)
[2024-08-31 06:30] LABS: Procalcitonin 11.5 ng/mL
[2024-08-31 06:37] LABS: Band Neutrophils Percent 19 % (0-6); Lymphocytes Absolute Manual 0.88 K/mm3 (1.1-4.5); Lymphocytes Percent Manual 6 % (18-44); Monocytes Absolute Manual 0.59 K/mm3 (0.1-0.90); Monocytes Percent Manual 4 % (3-9); Neutrophils Absolute Manual 13.32 K/mm3 (1.3-6.7); Neutrophils Percent Manual 71 % (46-73); Total Cells Counted 100
[2024-08-31 06:38] LABS: Anisocytosis 1+; Burr Cells 2+; Hypochromasia 1+; Ovalocytes 1+; Schistocytes None Seen
[2024-08-31] MEDS: HYDROCORTISONE SODIUM SUCCINATE 100 MG/2 ML VIAL IV PUSH (06:46)
[2024-08-31] MEDS: CENTRAL LINE FLUSH 10 ML IV PUSH ×3 (06:46→22:12)
[2024-08-31 06:55] LABS: HIV 1/2 Ab P24 Ag Result Negative (Negative)
--- NOTE | 2024-08-31 06:57 | P.PNPL_ITS ---
Progress Note: A&P Assessment and Plan (1) Acute respiratory failure: Code(s): J96.00 - Acute respiratory failure, unspecified whether with hypoxia or hypercapnia Status: Acute Assessment and Plan: 68-year-old with a history of rheumatoid arthritis and Crohn's disease on Rinvoq 15 a day, methotrexate 20 mg q.week, prednisone 5 a day, hydroxychloroquine 200 a day. Recently she was diagnosed clinically with herpes infection of the buttocks, labia and face and treated with valacyclovir. She presents now with acute hypoxemic respiratory failure requiring intubation, Diffuse consolidative infiltrates in a perihilar region with scattered infiltrates peripherally and in the lower lobe. Currently on 70% and 8 of PEEP. no available bronchoscopy times today. Etiology includes: pneumonia ( bacterial, viral, fungal, AFB), aspiration pneumonitis, alveolar hemorrhage. Plan: will perform bronchoscopy with BAL on 08/31/2024 if her oxygenation improves. Urine Legionella, urine pneumococcal, serum mycoplasma IgM pending. I will order respiratory pathogen panel. No send HIV screen. Currently patient on vancomycin, cefepime and azithromycin. I will change azithromycin to Levaquin for continued atypical coverage and added gram-negative coverage. Patient is on acyclovir for possible herpes pneumonia and will continue. 08/31/2024: Patient remains intubated and sedated with fentanyl to 200 and Versed 8. Hutchison 70% FiO2 and 8 of PEEP with respiratory rate of 20 and a tidal volume of 370. ABG was 7.3 10/11/2059. White blood cell count 14.8 with 19% bands. Creatinine 0.63, BNP 1160. CRP 39.4. Procalcitonin 11.5. cultures remain negative. Chest x-ray shows diffuse interstitial alveolar infiltrates with no change compared to 08/30/2024. Plan: Will proceed with bronchoscopy with BAL and wash collections and send specimens for bacterial, viral, fungal and AFB smears and cultures. Continue vancomycin, cefepime, Levaquin and acyclovir. Patient was on prednisone and on stress dose steroids which will be weaned as tolerated. Ventilator management per professor of family medicine. Discussed with family members, and Dr. James. Subjective Date/time seen: 08/31/24 06:57 Interval history: 08/30/2024: This is a new pulmonary consult for pneumonia and bronchoscopy 68-year-old with a history of rheumatoid arthritis, Crohn's, GERD. regarding patient's rheumatoid arthritis her family tells me she has been on medicines for 30 years but is not taking any injectable medicines for the last year although 1 family member sink she might be on injectable medicines. They recognize the words Humira and Enbrel. home medicines include Rinvoq 15 mg p.o. q.day, prednisone 5 a day, methotrexate 20 mg weekly and hydroxychloroquine 20 mg a day. She has frequently received hand injections as well as shoulder injections. At baseline the patient has no chronic respiratory issues. She has been using a crutch for 1 month because of pain in her back. She is a never smoker, has no respiratory limitations in her activities of daily living and has no history of aspiration. approximately 2 months ago the patient noticed a blistering sore on her buttocks that initially was treated with an ointment. She then went to a de rmatologist with said this was something that came and from inside her that everybody has and prescribed a medicine called Valacyclovir. This lesion grew in spread to her labia and spread to her mouth. Family tells me she was in her usual state of health and had no breathing issues on 08/27/2024. On 08/28 the patient ate her dinner and was feeling fine according to the . She had no breathing issues that he noticed. He noticed no fever, chills, rigors. 08/29/2024 patient woke up and was confused but there was no evidence of cough, fever or breathing related issues. EMS found a glucose of 29. Presented to the emergency department at 4:40 p.m. with tachycardia and was treated with 3 L IV fluid. She required 2 L nasal cannula saturations 92%. White blood cell count 9.2, creatinine 1.53, bands 10%. Lactic acid 8.4, procalcitonin 24.1, urine was turbid, trace leukocyte Estrace positive 2+ bacteria, COVID influenza RSV RT PCR negative. chest x-ray did show diffuse interstitial alveolar infiltrates all lung craven. CT scan of the chest showed dense consolidations in the central Perihilar predominance with very few patchy infiltrates peripherally and in the lower lobes. Patient was started on ceftriaxone and azithromycin. patient had worsening oxygenation requiring high-flow nasal canula 08/30/2024 Patient was in respiratory distress. She was A&O x4 according to the professor of family medicine and was intubated. Patient currently remains intubated on 70% and 8 of PEEP. She Had a fever this morning of 39.6. White blood cell count 7.4, creatinine 0.79, CRP greater than 40, ABG on CMV rate of 20, 100% FiO2 7.41/29/177. Blood cultures no growth x2, urine micro and sputum pending. 08/31/2024: Patient remains intubated and sedated with fentanyl to 200 and Versed 8. Hutchison 70% FiO2 and 8 of PEEP with respiratory rate of 20 and a tidal volume of 370. ABG was 7.3 10/11/2059. White blood cell count 14.8 with 19% bands. Creatinine 0.63, BNP 1160. CRP 39.4. Procalcitonin 11.5. cultures remain negative. Chest x-ray shows diffuse interstitial alveolar infiltrates with no change compared to 08/30/2024. DATA: 08/30/24: Summary 1. Definity contrast administered improved wall motion interpretation. 2. Left ventricular chamber dimension is normal. 3. Left ventricular systolic function is normal, estimated at 55-60. 4. The left ventricular diastolic function is grade I diastolic dysfunction. 5. E/e' 6 is not elevated. 6. There is trace aortic valve regurgitation. 7. The mitral valve has a mildly calcified annulus. 8. There is mild tricuspid valve regurgitation. 9. No pulmonary hypertension, estimated pulmonary arterial systolic pressure is 32 mmHg. Left Ventricle Definity contrast administered improved wall motion interpretation. Left ventricular chamber dimension is normal. Left ventricular systolic function is normal, estimated at 55-60. The left ventricular diastolic function is grade I diastolic dysfunction. E/e' 6 is not elevated. Right Ventricle Right ventricular chamber dimension is normal. Right ventricular systolic function is normal. Left Atria Left atrial chamber dimension is normal. Right Atria Right atrial chamber dimension is normal. 08/29/2024: CLINICAL INDICATION: Sepsis COMPARISON: None. TECHNIQUE: Multiple contiguous axial images of the chest, abdomen and pelvis were performed without the administration of intravenous contrast The dose-length product (DLP) was 500.82 mGy-cm. Automated exposure control and iterative reconstruction technique were employed. FINDINGS/OBSERVATIONS: LUNG: Dense bilateral infiltrates with air bronchograms within the bilateral upper, right middle and bilateral lower lobes, with relative sparing of the bilateral bases. MEDIASTINUM: Limited evaluation without intravenous contrast. HEART: The heart is of normal size, with a small pericardial effusion. SOFT TISSUES OF THE CHEST: Unremarkable. Liver: The liver demonstrates homogeneous attenuation and is not enlarged. Gallbladder and biliary system: The gallbladder is surgically absent.. Pancreas: Limited evaluation of the pancreas secondary to the lack of intravenous contrast. Spleen: The spleen demonstrates homogeneous attenuation and is not enlarged. Kidneys: 3 mm nonobstructing stone within the lower pole of the left kidney. The remainder of the bilateral kidneys are otherwise unremarkable, without hydronephrosis or additional renal calculi. Adrenal glands: Unremarkable. Gastrointestinal tract: Fecal stasis within the distal colon and rectum. Colonic diverticulosis without inflammatory change. Appendix: The appendix is not definitively visualized. However, no pericecal inflammatory change is identified suggest the presence of acute appendicitis. Vasculature: Trace calcified atherosclerotic disease, without aneurysmal dilatation. Lymph nodes: Limited evaluation without intravenous contrast. Pelvic structures: The bladder is decompressed with a Obregon catheter, limiting its evaluation. Limited evaluation of the deep pelvis secondary to metallic streak artifact from patient's bilateral hip prostheses. Body wall and musculoskeletal: Age advanced degenerative disease within the thoracic and lumbosacral spines. 33 degrees of levoscoliotic curvature of the lumbar spine. IMPRESSION: Dense bilateral multifocal infiltrates, predominantly perihilar, as detailed above. No additional source is detected for patient's profound sepsis. Review of Systems Review of Systems: ROS unobtainable: Yes unobtainable due to endotracheal tube and unobtainable due to mental status Exam Const: General: comfortable Orientation/consciousness: oriented to person, oriented to place and oriented to time Other: sedated and intubated HENMT: Head: normal to inspection Ears: hearing grossly normal bilaterally Eyes: General: appearance normal, both eyes and all related structures Neck: Neck: normal visual inspection Chest: Chest palpation & inspection: normal inspection of the chest Resp: Effort & Inspection: normal respiratory effort and able to speak in complete sentences Auscultation: crackles, no rales, no rhonchi, no wheezes and lung sounds not diminished Other: coarse breath sounds with crackles bilaterally Cardio: Jugular venous distension: no JVD GI: Inspection: normal to inspection Skin: General skin exam: normal color Neuro: General: oriented to person, oriented to place and oriented to time Other: intubated and sedated. Extrem: General: normal to inspection Objective Data Vital Signs Vital Signs: Vital Signs - 24 hr 08/30/24 07:02 08/30/24 08:00 08/30/24 08:00 Temperature 39.6 C H 37.2 C Pulse Rate 134 H Respiratory Rate 26 H Blood Pressure 134/74 Pulse Oximetry 95 Oxygen Delivery High Flow Therapy with Na Oxygen Flow Rate 45 Fraction of Inspired Oxygen 65 08/30/24 08:00 08/30/24 09:30 08/30/24 10:15 Temperature 37.1 C Pulse Rate 140 H Respiratory Rate Blood Pressure Pulse Oximetry 95 100 Oxygen Delivery High Flow Therapy with Na Mechanical Ventilation Oxygen Flow Rate 45 Fraction of Inspired Oxygen 66 100 08/30/24 10:23 08/30/24 10:24 08/30/24 10:42 Temperature Pulse Rate 135 H 135 H 126 H Respiratory Rate 19 16 33 H Blood Pressure Pulse Oximetry Oxygen Delivery Oxygen Flow Rate Fraction of Inspired Oxygen 08/30/24 10:42 08/30/24 10:53 08/30/24 10:54 Temperature Pulse Rate 126 H 126 H 126 H Respiratory Rate 33 H 33 H 33 H Blood Pressure Pulse Oximetry Oxygen Delivery Oxygen Flow Rate Fraction of Inspired Oxygen 08/30/24 11:00 08/30/24 11:04 08/30/24 11:05 Temperature Pulse Rate 130 H 121 H 121 H Respiratory Rate 25 H 33 H Blood Pressure Pulse Oximetry Oxygen Delivery Oxygen Flow Rate Fraction of Inspired Oxygen 08/30/24 11:06 08/30/24 12:00 08/30/24 12:00 Temperature Pulse Rate 131 H 108 H 108 H Respiratory Rate 33 H 30 H 30 H Blood Pressure Pulse Oximetry Oxygen Delivery Oxygen Flow Rate Fraction of Inspired Oxygen 08/30/24 12:00 08/30/24 12:00 08/30/24 12:00 Temperature 37.1 C Pulse Rate 108 H 109 H 105 H Respiratory Rate 30 H 23 H 21 H Blood Pressure 106/71 Pulse Oximetry 93 92 Oxygen Delivery Mechanical Ventilation Oxygen Flow Rate Fraction of Inspired Oxygen 08/30/24 12:00 08/30/24 12:00 08/30/24 12:15 Temperature Pulse Rate 105 H 107 H Respiratory Rate Blood Pressure Pulse Oximetry 92 Oxygen Delivery Mechanical Ventilation Oxygen Flow Rate Fraction of Inspired Oxygen 70 70 08/30/24 14:00 08/30/24 14:00 08/30/24 14:00 Temperature Pulse Rate 100 100 100 Respiratory Rate 20 20 20 Blood Pressure Pulse Oximetry Oxygen Delivery Oxygen Flow Rate Fraction of Inspired Oxygen 08/30/24 14:00 08/30/24 14:00 08/30/24 15:31 Temperature 36.5 C Pulse Rate 100 101 H 102 H Respiratory Rate 20 Blood Pressure 96/65 L Pulse Oximetry 94 95 Oxygen Delivery Mechanical Ventilation Oxygen Flow Rate Fraction of Inspired Oxygen 70 08/30/24 16:00 08/30/24 16:00 08/30/24 16:00 Temperature Pulse Rate 100 100 Respiratory Rate 20 Blood Pressure Pulse Oximetry 93 Oxygen Delivery Mechanical Ventilation Oxygen Flow Rate Fraction of Inspired Oxygen 70 70 08/30/24 16:00 08/30/24 16:00 08/30/24 16:00 Temperature 36.5 C Pulse Rate 100 100 100 Respiratory Rate 20 20 20 Blood Pressure 88/63 L Pulse Oximetry 93 Oxygen Delivery Oxygen Flow Rate Fraction of Inspired Oxygen 08/30/24 16:00 08/30/24 17:39 08/30/24 18:00 Temperature Pulse Rate 100 94 92 Respiratory Rate 20 Blood Pressure Pulse Oximetry 95 Oxygen Delivery Mechanical Ventilation Oxygen Flow Rate Fraction of Inspired Oxygen 70 08/30/24 18:00 08/30/24 20:00 08/30/24 20:00 Temperature 36.7 C Pulse Rate 94 98 Respiratory Rate 20 20 Blood Pressure 81/66 L Pulse Oximetry 99 92 Oxygen Delivery Mechanical Ventilation Oxygen Flow Rate Fraction of Inspired Oxygen 65 65 08/30/24 20:00 08/30/24 20:00 08/30/24 20:00 Temperature 37.1 C Pulse Rate 92 92 97 Respiratory Rate 20 20 Blood Pressure 83/67 L Pulse Oximetry 94 Oxygen Delivery Oxygen Flow Rate Fraction of Inspired Oxygen 08/30/24 20:15 08/30/24 20:58 08/30/24 20:58 Temperature Pulse Rate 91 93 93 Respiratory Rate 14 14 Blood Pressure Pulse Oximetry 97 Oxygen Delivery Mechanical Ventilation Oxygen Flow Rate Fraction of Inspired Oxygen 70 08/30/24 22:00 08/30/24 22:00 08/30/24 22:00 Temperature Pulse Rate 96 96 96 Respiratory Rate 20 20 20 Blood Pressure 88/65 L Pulse Oximetry 95 Oxygen Delivery Oxygen Flow Rate Fraction of Inspired Oxygen 08/30/24 22:27 08/30/24 22:27 08/30/24 23:01 Temperature Pulse Rate 96 96 112 H Respiratory Rate 20 20 Blood Pressure Pulse Oximetry 95 Oxygen Delivery Mechanical Ventilation Oxygen Flow Rate Fraction of Inspired Oxygen 65 08/30/24 23:37 08/30/24 23:41 08/31/24 00:00 Temperature Pulse Rate 107 H 134 H Respiratory Rate 20 Blood Pressure Pulse Oximetry 96 Oxygen Delivery Mechanical Ventilation Oxygen Flow Rate Fraction of Inspired Oxygen 65 65 08/31/24 00:00 08/31/24 00:00 08/31/24 01:58 Temperature 36.8 C Pulse Rate 134 H 117 H 113 H Respiratory Rate 25 H 20 Blood Pressure 94/70 L Pulse Oximetry 94 Oxygen Delivery Oxygen Flow Rate Fraction of Inspired Oxygen 08/31/24 01:58 08/31/24 02:00 08/31/24 02:02 Temperature 36.8 C Pulse Rate 113 H 118 H 115 H Respiratory Rate 22 H 20 Blood Pressure 96/68 L Pulse Oximetry 94 93 Oxygen Delivery Mechanical Ventilation Oxygen Flow Rate Fraction of Inspired Oxygen 65 08/31/24 04:00 08/31/24 04:00 08/31/24 04:00 Temperature 37.1 C Pulse Rate 118 H 118 H Respiratory Rate 20 22 H Blood Pressure 97/72 L Pulse Oximetry 95 95 Oxygen Delivery Mechanical Ventilation Oxygen Flow Rate Fraction of Inspired Oxygen 70 70 08/31/24 04:00 08/31/24 04:00 08/31/24 05:05 Temperature Pulse Rate 118 H 117 H 131 H Respiratory Rate 25 H Blood Pressure Pulse Oximetry 92 Oxygen Delivery Mechanical Ventilation Oxygen Flow Rate Fraction of Inspired Oxygen 70 08/31/24 05:06 08/31/24 06:00 08/31/24 06:00 Temperature Pulse Rate 118 H 117 H 119 H Respiratory Rate 20 22 H Blood Pressure 100/73 Pulse Oximetry 97 Oxygen Delivery Oxygen Flow Rate Fraction of Inspired Oxygen Intake/Output Intake/Output: Intake & Output 08/28/24 08/29/24 08/30/24 08/31/24 23:59 23:59 23:59 23:59 Intake Total 3300 3105.4 334.4 Output Total 2900 250 Balance 3300 205.4 84.4 Meds/Results Medications: Active Medications Generic Name Dose Route Start Last Admin Trade Name Freq PRN Reason Stop Dose Admin Acetaminophen 650 mg 08/29/24 18:17 Acetaminophen 325 Mg Tablet PO Q4H PRN Mild Pain (1-3) or Fever Acetaminophen 650 mg 08/30/24 00:43 08/30/24 06:56 Acetaminophen 650 Mg Suppository RECTAL 650 mg Q6H PRN Administration Mild Pain (1-3) or Fever Acyclovir 400 mg 08/30/24 14:00 08/31/24 06:45 Acyclovir 200 Mg Capsule FEED TUBE 09/09/24 06:01 Not Given Q8HR RHYS Dextrose 12.5 gm 08/29/24 20:42 08/29/24 23:59 Dextrose 50% 25 Gm/50 Ml Syringe IV PUSH 12.5 gm PRN PRN Administration Hypoglycemia Protocol Glucagon 1 mg 08/29/24 20:42 Glucagon For Inj 1 Mg Vial IM PRN PRN Hypoglycemia Protocol Glucose 15 gm 08/29/24 20:42 Glucose Oral Gel 15 Gm Of Glucse In 37.5 Gm Tube PO PRN PRN Hypoglycemia Protocol Heparin Sodium (Porcine) 5,000 units 08/30/24 09:00 08/30/24 20:56 Heparin Sodium 5,000 Units/Ml Vial SUB-Q 5,000 units Q12HR RHYS Administration Hydrocortisone Sodium Succinate 100 mg 08/30/24 14:00 08/31/24 06:46 Hydrocortisone Sodium Succinate 100 Mg/2 Ml Vial IV PUSH 100 mg Q8HR RHYS Administration Dextrose 1,000 mls @ 100 mls/hr 08/29/24 20:42 Dextrose 5% 1,000 Ml IVPB PRN PRN Hypoglycemia Protocol Dextrose/Sodium Chloride 1,000 mls @ 50 mls/hr 08/29/24 20:55 08/30/24 20:58 Dextrose 5% Sodium Chloride 0.9% IV CONT 50 mls/hr .Q20H RHYS Administration Cefepime HCl 2 gm in 50 mls @ 100 mls/hr 08/30/24 10:00 08/30/24 22:20 Maxipime 2 Gm/Ns 50 Ml IVPB Infused Q12HR RHYS Infusion Vancomycin HCl 1,000 mg in 250 mls @ 250 mls/hr 08/31/24 12:00 Vancomycin 1,000 Mg/Ns 250 Ml IVPB Q24H RHYS Fentanyl Citrate 2,500 mcg in 250 mls @ 12.5 mls/hr 08/30/24 10:20 08/31/24 06:00 Fentanyl 2,500 Mcg/Ns 250 Ml IV CONT 200 mcg/hr .Q20H RHYS 20 mls/hr Titration Protocol 125 MCG/HR Midazolam HCl 100 mg in 100 mls @ 9 mls/hr 08/30/24 10:20 08/30/24 22:00 Versed 100 Mg/Ns 100 Ml IV CONT 9 mg/hr .Q11H7M RHYS 9 mls/hr Titration Protocol 9 MG/HR Propofol 100 mls @ 0 mls/hr 08/30/24 11:00 08/30/24 16:00 Diprivan IV CONT 0 mcg/kg/min .Q0M RHYS 0 mls/hr Titration Protocol 0 MCG/KG/MIN Levofloxacin/Dextrose 750 mg in 150 mls @ 100 mls/hr 08/30/24 14:00 08/30/24 19:59 Levaquin 750 Mg/D5w 150 Ml IVPB Infused Q24H RHYS Infusion Insulin Aspart 3 - 6 units 08/30/24 10:30 08/31/24 00:17 Insulin Aspart (*Bkc) 100 Units/Ml SUB-Q Not Given Q4H [facility] Protocol Multi-Ingred Cream/Lotion/Oil/Oint 1 applic 08/30/24 10:20 08/30/24 20:56 Mineral Oil/White Petrolatum Ointment EACH EYE 1 applic Q12HR RHYS Administration Pantoprazole Sodium 40 mg 08/30/24 10:40 08/30/24 20:57 Pantoprazole Sodium Iv 40 Mg Vial IV PUSH 40 mg Q12HR RHYS Administration Prednisolone Acetate 1 drop 08/30/24 21:00 08/30/24 21:22 Prednisolone Acetate 1% Ophth 5 Ml RIGHT EYE 1 drop Q12HR RHYS Administration Sodium Chloride 10 ml 08/30/24 14:00 08/31/24 06:46 Central Line Flush IV PUSH 10 ml Q8HR RHYS Administration Sodium Chloride 10 ml 08/30/24 12:17 Central Line Flush IV PUSH PRN PRN with TPN bag changes Sodium Chloride 20 ml 08/30/24 12:17 Central Line Flush IV PUSH PRN PRN after blood draws Valacyclovir HCl 500 mg 08/30/24 10:40 08/30/24 12:19 Valacyclovir Hcl 500 Mg Tablet FEED TUBE 500 mg DAILY RHYS Administration Radiology Results: ITS Impressions Head CT 08/29/24 21:55 Impression: No acute intracranial hemorrhage or suspicious mass effect. Chest/Abdomen/Pelvis CT 08/29/24 21:57 IMPRESSION: Dense bilateral multifocal infiltrates, predominantly perihilar, as detailed above. No additional source is detected for patient's profound sepsis. Abdomen X-Ray 08/30/24 11:02 IMPRESSION: Bilateral pneumonia. Differential include pulmonary edema. Chest X-Ray 08/31/24 06:14 Impression: Stable diffuse pulmonary consolidation. Correlate for pulmonary edema, pneu monia, ARDS. Stable support tubes. Labs Labs: Laboratory Results - last 24 hr 08/30/24 08/30/24 08/30/24 05:53 08:44 09:31 WBC RBC Hgb Hct MCV MCH MCHC RDW Plt Count MPV Immature Gran % (Auto) Neut % (Auto) Lymph % (Auto) [place] % (Auto) Eos % (Auto) Baso % (Auto) Lymph # (Auto) [place] # (Auto) Eos # (Auto) Baso # (Auto) Abs Immat Gran (auto) Absolute Neuts (auto) Absolute Nucleated RBC Total Counted Neutrophils % (Manual) Band Neutrophils % Lymphocytes % (Manual) Monocytes % (Manual) Nucleated RBC % Abs Neuts (Manual) Abs Lymphs (Manual) Abs Monocytes (Manual) Platelet Estimate Hypochromasia Anisocytosis Ovalocytes Bison Cells Schistocytes Puncture Site Right radial ABG pH 7.499 H ABG pCO2 23.2 L* ABG pO2 65.5 L ABG PO2/FiO2 Ratio 0.99 ABG HCO3 17.6 L ABG O2 Saturation 94.9 L ABG O2 Content 11.2 L ABG Base Excess -4.6 A-a Gradient 379.9 Oxyhemoglobin 93.4 Carboxyhemoglobin 0.5 Methemoglobin 0.3 Reduced Hemoglobin 5.8 H Total Hemoglobin 8.5 L O2 Delivery Device High flow nasal aida O2 Liters/Min 45.0 Minute Volume Vent Rate Vent Mode FiO2 66 Tidal Volume PEEP Peak Inspir Pressure Pressure Support POC Capillary Glucose 104 120 H NT-Pro-B Natriuret Pep Procalcitonin Urine Opiates Screen Urine Methadone Screen Ur Barbiturates Screen Ur Phencyclidine Scrn Ur Amphetamine Screen U Benzodiazepines Scrn Urine Cocaine Screen U Cannabinoids Screen HIV 1&2 Ab/P24 Ag 4thGn 08/30/24 08/30/24 08/30/24 11:00 14:00 15:03 WBC RBC Hgb Hct MCV MCH MCHC RDW Plt Count MPV Immature Gran % (Auto) Neut % (Auto) Lymph % (Auto) [place] % (Auto) Eos % (Auto) Baso % (Auto) Lymph # (Auto) [place] # (Auto) Eos # (Auto) Baso # (Auto) Abs Immat Gran (auto) Absolute Neuts (auto) Absolute Nucleated RBC Total Counted Neutrophils % (Manual) Band Neutrophils % Lymphocytes % (Manual) Monocytes % (Manual) Nucleated RBC % Abs Neuts (Manual) Abs Lymphs (Manual) Abs Monocytes (Manual) Platelet Estimate Hypochromasia Anisocytosis Ovalocytes Bison Cells Schistocytes Puncture Site Right radial ABG pH 7.413 ABG pCO2 29.3 L ABG pO2 176.6 H ABG PO2/FiO2 Ratio 1.77 ABG HCO3 18.3 L ABG O2 Saturation 99.2 ABG O2 Content 12.6 L ABG Base Excess -5.5 A-a Gradient 507.1 Oxyhemoglobin 98.3 Carboxyhemoglobin Methemoglobin Reduced Hemoglobin Total Hemoglobin 8.8 L O2 Delivery Device Ventilator O2 Liters/Min Not Reportable Minute Volume Not Reportable Vent Rate 20 Vent Mode Cmv FiO2 100 Tidal Volume 370 PEEP 8 Peak Inspir Pressure Not Reportable Pressure Support Not Reportable POC Capillary Glucose 83 NT-Pro-B Natriuret Pep Procalcitonin Urine Opiates Screen Negative Urine Methadone Screen Negative Ur Barbiturates Screen Negative Ur Phencyclidine Scrn Negative Ur Amphetamine Screen Negative U Benzodiazepines Scrn Positive A Urine Cocaine Screen Negative U Cannabinoids Screen Negative HIV 1&2 Ab/P24 Ag 4thGn 08/30/24 08/30/24 08/30/24 18:05 21:34 23:47 WBC RBC Hgb Hct MCV MCH MCHC RDW Plt Count MPV Immature Gran % (Auto) Neut % (Auto) Lymph % (Auto) [place] % (Auto) Eos % (Auto) Baso % (Auto) Lymph # (Auto) [place] # (Auto) Eos # (Auto) Baso # (Auto) Abs Immat Gran (auto) Absolute Neuts (auto) Absolute Nucleated RBC Total Counted Neutrophils % (Manual) Band Neutrophils % Lymphocytes % (Manual) Monocytes % (Manual) Nucleated RBC % Abs Neuts (Manual) Abs Lymphs (Manual) Abs Monocytes (Manual) Platelet Estimate Hypochromasia Anisocytosis Ovalocytes Mary Cells Schistocytes Puncture Site ABG pH ABG pCO2 ABG pO2 ABG PO2/FiO2 Ratio ABG HCO3 ABG O2 Saturation ABG O2 Content ABG Base Excess A-a Gradient Oxyhemoglobin Carboxyhemoglobin Methemoglobin Reduced Hemoglobin Total Hemoglobin O2 Delivery Device O2 Liters/Min Minute Volume Vent Rate Vent Mode FiO2 Tidal Volume PEEP Peak Inspir Pressure Pressure Support POC Capillary Glucose 84 102 110 H NT-Pro-B Natriuret Pep Procalcitonin Urine Opiates Screen Urine Methadone Screen Ur Barbiturates Screen Ur Phencyclidine Scrn Ur Amphetamine Screen U Benzodiazepines Scrn Urine Cocaine Screen U Cannabinoids Screen HIV 1&2 Ab/P24 Ag 4thGn 08/31/24 08/31/24 08/31/24 05:00 05:15 05:40 WBC 14.8 H RBC 2.67 L Hgb 8.2 L Hct 25.8 L MCV 96.6 MCH 30.7 MCHC 31.8 L RDW 24.5 H Plt Count 336 MPV 10.1 Immature Gran % (Auto) Not Reportable Neut % (Auto) Not Reportable Lymph % (Auto) Not Reportable [place] % (Auto) Not Reportable Eos % (Auto) Not Reportable Baso % (Auto) Not Reportable Lymph # (Auto) Not Reportable [place] # (Auto) Not Reportable Eos # (Auto) Not Reportable Baso # (Auto) Not Reportable Abs Immat Gran (auto) Not Reportable Absolute Neuts (auto) Not Reportable Absolute Nucleated RBC Not Reportable Total Counted 100 Neutrophils % (Manual) 71 Band Neutrophils % 19 H Lymphocytes % (Manual) 6 L Monocytes % (Manual) 4 Nucleated RBC % Not Reportable Abs Neuts (Manual) 13.32 H Abs Lymphs (Manual) 0.88 L Abs Monocytes (Manual) 0.59 Platelet Estimate Adequate Hypochromasia 1+ Anisocytosis 1+ Ovalocytes 1+ Bison Cells 2+ Schistocytes None seen Puncture Site Left radial ABG pH 7.369 ABG pCO2 30.3 L ABG pO2 60.6 L ABG PO2/FiO2 Ratio 0.87 ABG HCO3 17.1 L ABG O2 Saturation 91.0 L ABG O2 Content 12.7 L ABG Base Excess -7.2 A-a Gradient 405.9 Oxyhemoglobin 89.2 L Carboxyhemoglobin 0.6 Methemoglobin 0.3 Reduced Hemoglobin 9.9 H Total Hemoglobin 10.1 L O2 Delivery Device Ventilator O2 Liters/Min Not Reportable Minute Volume Not Reportable Vent Rate 20 Vent Mode Cmv FiO2 70 Tidal Volume 370 PEEP 8 Peak Inspir Pressure Not Reportable Pressure Support Not Reportable POC Capillary Glucose NT-Pro-B Natriuret Pep Cancelled Procalcitonin 11.5 Urine Opiates Screen Urine Methadone Screen Ur Barbiturates Screen Ur Phencyclidine Scrn Ur Amphetamine Screen U Benzodiazepines Scrn Urine Cocaine Screen U Cannabinoids Screen HIV 1&2 Ab/P24 Ag 4thGn Negative
--- NOTE | 2024-08-31 08:00 | CY_PTH ---
PATIENT: Ina Garcia LOC: [id number] U#:[id number] AGE/SX: 68/F ROOM: 256 RE08/30/[address]: Dillan Gardner MD : [id number] BED: 01 DIS: 09/17/2024 SPEC #: [id number] RECD: 08/31/24 09:20 STATUS: DANI REDesiree #: [id number] JORDON: 08/31/24 08:[address]: Cristóbal Frost DEPT: [facility] Cytology RECD BY: Marti Alcazar ENTERED: 08/31/24 09:21 SP TYPE: Cytology OTHR DR: MD Bud Cruz MD Tina A. Winter, CHEMICAL DETECTION EXPERT Tissues: A - Bronchial Alveolar Lavage B - Bronchial Washing Procedures: Hematoxylin and Eosin Stain Cell Block Cytopathology Cytospin
[2024-08-31 08:07] LABS: Alanine Aminotransferase 73 U/L (6-35); Albumin Level 2.3 g/dL (3.5-5.1); Alkaline Phosphatase 123 U/L (38-126); Anion Gap 8 mmol/L (4-12); Aspartate Amino Transferase 177 U/L (14-36); Bilirubin,Total 0.2 mg/dL (0.2-1.3); Blood Urea Nitrogen 15 mg/dL (7-17); CRP 39.4 mg/dL (<1.0); Calcium 8.2 mg/dL (8.4-10.2); Carbon Dioxide 17 mmol/L (22-30); Chloride 112 mmol/L (98-107); Estimated CRCL calculation 57 ml/min; Estimated Glomerular Filt Rate > 60; Glucose 114 mg/dL (65-110); Magnesium 2.2 mg/dL (1.6-2.3); NT Pro B Type Natriuretic Pept 1160 pg/mL (19.9-100); Potassium 3.7 mmol/L (3.4-5.0); Sodium 137 mmol/L (137-145); Total Protein 4.7 g/dL (6.3-8.2)
--- NOTE | 2024-08-31 08:07 | PC.NURSE ---
Fentanyl 100mcg IVP pulled for 50mcg one time dose for bedside procedure. Fentanyl not used, wasted with Adela MACE.
[2024-08-31] MEDS: LIDOCAINE 2% LOCAL INJ 20 ML VIAL INFILTRATE (08:21)
--- NOTE | 2024-08-31 08:22 | SUR.OPER ---
150 ml NS washings in right lobe BAL with 81 ml return. 15 ml washing of lizzette with 13 ml return.
[2024-08-31] MEDS: MIDAZOLAM 100MG/NS 100ML(*CRX) 100 MG/100 ML BAG 9 MG IV CONT (08:29)
[2024-08-31] MEDS: PROPOFOL IV EMULSION 100 ML 6.08 MG IV CONT (08:31)
[2024-08-31] MEDS: CEFEPIME 2 GM/NS 50 ML 2 GM/50 ML BAG IVPB ×2 (08:48→21:27)
[2024-08-31] MEDS: PANTOPRAZOLE SODIUM IV 40 MG VIAL IV PUSH ×2 (08:50→21:23)
[2024-08-31] MEDS: prednisoLONE ACETATE 1% OPHTH 5 ML 1 DROP RIGHT EYE ×2 (08:51→21:27)
[2024-08-31] MEDS: MINERAL OIL/WHITE PETROLATUM OINTMENT 1 APPLIC EACH EYE ×2 (08:51→21:27)
--- NOTE | 2024-08-31 09:31 | WPDINTPN ---
Progress Note: A&P Assessment and Plan (1) Acute respiratory failure: Code(s): J96.00 - Acute respiratory failure, unspecified whether with hypoxia or hypercapnia Status: Acute Assessment and Plan: Acute respiratory failure and sepsis secondary to bilateral pneumonia in an immunocompromised patient who is currently on methotrexate and hydroxychloroquine. ARDS is another possibility 08/29 CT Chest Dense bilateral multifocal infiltrates, predominantly perihilar, as detailed above. No additional source is detected for patient's profound sepsis 08/30 During my assessment patient was tachypneic and tachycardic and in respiratory distress although she was maintaining her oxygen saturation Option of intubation and mechanical ventilation was discussed the patient and patient was agreeable as she was in respiratory distress. Risks and benefits were explained to the patient and her family and they all agree were agreeable and verbalized understanding to proceed. Patient was transferred to ICU and electively intubated Placed on CMV with low tidal volume and PEEP of 8 and FiO2 o has been weaned down to 75 per ABG reviewed Continue broad-spectrum antibiotics in the form of vancomycin cefepime and [place] Blood and sputum culture ordered and PCR for influenza RSV and COVID was negative Urine Legionella and pneumococcal antigen Pending Mycoplasma IgM 08/31 patient underwent bronchoscopy which did not show any LR hemorrhage or tracheobronchitis. BAL samples collected and sent to the lab Decrease hydrocortisone dose Wean FiO2. Increase PEEP to 10 (2) Gastroesophageal reflux disease: Qualifiers: Esophagitis presence: esophagitis presence not specified Qualified Code(s): K21.9 - Gastro-esophageal reflux disease without esophagitis Code(s): K21.9 - Gastro-esophageal reflux disease without esophagitis Status: Acute Assessment and Plan: PPI q.12 hours (3) FRANK (acute kidney injury): Code(s): N17.9 - Acute kidney failure, unspecified Status: Acute Assessment and Plan: Patient presented with elevated creatinine which was likely secondary to sepsis. Creatinine is improved with IV fluids Cut down on further IV fluids Monitor urine output electrolytes and creatinine [place] catheter for accurate I&Os (4) Sepsis: Qualifiers: Sepsis acute organ dysfunction status: with acute organ dysfunction Sepsis type: sepsis due to unspecified organism Severe sepsis acute organ dysfunction type: encephalopathy Severe sepsis shock status: without septic shock Qualified Code(s): A41.9 - Sepsis, unspecified organism; R65.20 - Severe sepsis without septic shock; G93.41 - Metabolic encephalopathy Code(s): A41.9 - Sepsis, unspecified organism Status: Acute Assessment and Plan: See above (5) Immunosuppressed status: Code(s): D89.9 - Disorder involving the immune mechanism, unspecified Status: Acute Assessment and Plan: See above (6) Rheumatoid arthritis: Code(s): M06.9 - Rheumatoid arthritis, unspecified Status: Acute Assessment and Plan: Hold methotrexate and hydroxychloroquine (7) Toxic metabolic encephalopathy: Code(s): G92.8 - Other toxic encephalopathy Status: Acute Assessment and Plan: Patient presented with altered mental status and confusion which appears to be encephalopathy ache. Patient has sepsis and was on several medication including tramadol and benzodiazepine at home Patient appears much more awake and alert this morning before intubation and is now oriented x [address] was negative TSH was normal Patient obviously now sedated and intubated (8) Pneumonia: Qualifiers: Laterality: bilateral Lung location: unspecified part of lung Pneumonia type: due to unspecified organism Qualified Code(s): J18.9 - Pneumonia, unspecified organism Code(s): J18.9 - Pneumonia, unspecified organism Status: Acute Assessment and Plan: See above (9) Urinary tract infection: Qualifiers: Hematuria presence: with hematuria Urinary tract infection type: site unspecified Qualified Code(s): N39.0 - Urinary tract infection, site not specified; R31.9 - Hematuria, unspecified Code(s): N39.0 - Urinary tract infection, site not specified Status: Acute Assessment and Plan: UA suggestive of UTI Cultures ordered On broad-spectrum antibiotics Plan DVT prophylaxis -heparin Stress ulcer prophylaxis -Protonix Nutrition -restart Tube Feeds after bronchoscopy Code Status - Full Code Case discussed with Pulmonary Total Critical Care Time - 35 minutes Due to a high probability of clinically significant, life threatening deterioration, the patient required my highest level of preparedness to intervene emergently and I personally spent this critical care time directly and personally managing the patient. This critical care time included obtaining a history; examining the patient; pulse oximetry; ordering and review of studies; arranging urgent treatment with development of a management plan; evaluation of patient's response to treatment; frequent reassessment; and discussions with other providers. It was exclusive of separately billable procedures and treating other patients and teaching time. Please see Assessment and Plan section and the rest of the note for further information on patient assessment and treatment Subjective Date/time seen: 08/31/24 Overnight events reviewed. Afebrile overnight Continues to be on mechanical ventilation 70% FiO2 and 8 of PEEP Tube feeds on hold for bronchoscopy Continues to be sedated with Versed and fentanyl Acceptable urine output. Other Vitals acceptable Interval history: 68-year-old with a history of rheumatoid arthritis, Crohn's, GERD admitted to ICU for pneumonia and respiratory failure requiring intubation and mechanical ventilation Review of Systems Review of Systems: ROS unobtainable: Yes unobtainable due to endotracheal tube, unobtainable due to medical condition and unobtainable due to mental status Exam Narrative: General: Pt is now sedated, intubated and on mechanical ventilation Lungs/Chest: Trachea central clear BS B/L, bibasilar crackles Cardiac: Tachycardia RRR. Normal S1 S2. No murmurs Circulation: Pedal pulses are intact and symmetrical. Abdomen: Decreased bowel sounds. . Soft. NT. ND. Extremities: No clubbing, cyanosis or edema. Warm : [place] in place Neurologic: Prior to intubation patient was AO x3 and was moving all 4 extremities, PERRL now sedated and intubated Skin: 08/30 Edema with breakdown of the screen which appears to be popped blisters on right labia. Patient was examined in the presence of female clinical material handler was patient's nurse. She also has several scabbed wounds on her both legs which are in various healing stage but no open or infected wound. Objective Data Vital Signs Vital Signs: Vital Signs - 24 hr 08/30/24 10:15 08/30/24 10:23 08/30/24 10:24 Temperature Pulse Rate 140 H 135 H 135 H Respiratory Rate 19 16 Blood Pressure Pulse Oximetry 100 Oxygen Delivery Mechanical Ventilation Fraction of Inspired Oxygen 100 08/30/24 10:42 08/30/24 10:42 08/30/24 10:53 Temperature Pulse Rate 126 H 126 H 126 H Respiratory Rate 33 H 33 H 33 H Blood Pressure Pulse Oximetry Oxygen Delivery Fraction of Inspired Oxygen 08/30/24 10:54 08/30/24 11:00 08/30/24 11:04 Temperature Pulse Rate 126 H 130 H 121 H Respiratory Rate 33 H 25 H Blood Pressure Pulse Oximetry Oxygen Delivery Fraction of Inspired Oxygen 08/30/24 11:05 08/30/24 11:06 08/30/24 12:00 Temperature Pulse Rate 121 H 131 H 108 H Respiratory Rate 33 H 33 H 30 H Blood Pressure Pulse Oximetry Oxygen Delivery Fraction of Inspired Oxygen 08/30/24 12:00 08/30/24 12:00 08/30/24 12:00 Temperature 37.1 C Pulse Rate 108 H 108 H 109 H Respiratory Rate 30 H 30 H 23 H Blood Pressure 106/71 Pulse Oximetry 93 Oxygen Delivery Fraction of Inspired Oxygen 08/30/24 12:00 08/30/24 12:00 08/30/24 12:00 Temperature Pulse Rate 105 H 105 H Respiratory Rate 21 H Blood Pressure Pulse Oximetry 92 Oxygen Delivery Mechanical Ventilation Fraction of Inspired Oxygen 70 08/30/24 12:15 08/30/24 14:00 08/30/24 14:00 Temperature Pulse Rate 107 H 100 100 Respiratory Rate 20 20 Blood Pressure Pulse Oximetry 92 Oxygen Delivery Mechanical Ventilation Fraction of Inspired Oxygen 70 08/30/24 14:00 08/30/24 14:00 08/30/24 14:00 Temperature 36.5 C Pulse Rate 100 100 101 H Respiratory Rate 20 20 Blood Pressure 96/65 L Pulse Oximetry 94 Oxygen Delivery Fraction of Inspired Oxygen 08/30/24 15:31 08/30/24 16:00 08/30/24 16:00 Temperature Pulse Rate 102 H 100 100 Respiratory Rate 20 Blood Pressure Pulse Oximetry 95 93 Oxygen Delivery Mechanical Ventilation Mechanical Ventilation Fraction of Inspired Oxygen 70 70 08/30/24 16:00 08/30/24 16:00 08/30/24 16:00 Temperature 36.5 C Pulse Rate 100 100 Respiratory Rate 20 20 Blood Pressure 88/63 L Pulse Oximetry 93 Oxygen Delivery Fraction of Inspired Oxygen 70 08/30/24 16:00 08/30/24 16:00 08/30/24 17:39 Temperature Pulse Rate 100 100 94 Respiratory Rate 20 20 Blood Pressure Pulse Oximetry 95 Oxygen Delivery Mechanical Ventilation Fraction of Inspired Oxygen 70 08/30/24 18:00 08/30/24 18:00 08/30/24 20:00 Temperature 36.7 C Pulse Rate 92 94 98 Respiratory Rate 20 20 Blood Pressure 81/66 L Pulse Oximetry 99 92 Oxygen Delivery Mechanical Ventilation Fraction of Inspired Oxygen 65 08/30/24 20:00 08/30/24 20:00 08/30/24 20:00 Temperature 37.1 C Pulse Rate 92 92 Respiratory Rate 20 Blood Pressure 83/67 L Pulse Oximetry 94 Oxygen Delivery Fraction of Inspired Oxygen 65 08/30/24 20:00 08/30/24 20:15 08/30/24 20:58 Temperature Pulse Rate 97 91 93 Respiratory Rate 20 14 Blood Pressure Pulse Oximetry 97 Oxygen Delivery Mechanical Ventilation Fraction of Inspired Oxygen 70 08/30/24 20:58 08/30/24 22:00 08/30/24 22:00 Temperature Pulse Rate 93 96 96 Respiratory Rate 14 20 20 Blood Pressure 88/65 L Pulse Oximetry 95 Oxygen Delivery Fraction of Inspired Oxygen 08/30/24 22:00 08/30/24 22:27 08/30/24 22:27 Temperature Pulse Rate 96 96 96 Respiratory Rate 20 20 20 Blood Pressure Pulse Oximetry Oxygen Delivery Fraction of Inspired Oxygen 08/30/24 23:01 08/30/24 23:37 08/30/24 23:41 Temperature Pulse Rate 112 H 107 H Respiratory Rate 20 Blood Pressure Pulse Oximetry 95 96 Oxygen Delivery Mechanical Ventilation Mechanical Ventilation Fraction of Inspired Oxygen 65 65 65 08/31/24 00:00 08/31/24 00:00 08/31/24 00:00 Temperature 36.8 C Pulse Rate 134 H 134 H 117 H Respiratory Rate 25 H 20 Blood Pressure 94/70 L Pulse Oximetry 94 Oxygen Delivery Fraction of Inspired Oxygen 08/31/24 00:00 08/31/24 01:58 08/31/24 01:58 Temperature 36.8 C Pulse Rate 119 H 113 H 113 H Respiratory Rate 22 H 22 H Blood Pressure 96/68 L Pulse Oximetry 94 Oxygen Delivery Fraction of Inspired Oxygen 08/31/24 02:00 08/31/24 02:00 08/31/24 02:02 Temperature Pulse Rate 118 H 110 H 115 H Respiratory Rate 20 22 H Blood Pressure Pulse Oximetry 93 Oxygen Delivery Mechanical Ventilation Fraction of Inspired Oxygen 65 08/31/24 04:00 08/31/24 04:00 08/31/24 04:00 Temperature 37.1 C Pulse Rate 118 H 118 H Respiratory Rate 20 22 H Blood Pressure 97/72 L Pulse Oximetry 95 95 Oxygen Delivery Mechanical Ventilation Fraction of Inspired Oxygen 70 70 08/31/24 04:00 08/31/24 04:00 08/31/24 04:00 Temperature Pulse Rate 118 H 117 H 119 H Respiratory Rate 25 H 24 H Blood Pressure Pulse Oximetry Oxygen Delivery Fraction of Inspired Oxygen 08/31/24 05:05 08/31/24 05:06 08/31/24 06:00 Temperature Pulse Rate 131 H 118 H 117 H Respiratory Rate 20 Blood Pressure 100/73 Pulse Oximetry 92 97 Oxygen Delivery Mechanical Ventilation Fraction of Inspired Oxygen 70 08/31/24 06:00 08/31/24 06:00 08/31/24 07:32 Temperature 37.6 C Pulse Rate 119 H 116 H 117 H Respiratory Rate 22 H 22 H 20 Blood Pressure 108/74 Pulse Oximetry 96 Oxygen Delivery Fraction of Inspired Oxygen 08/31/24 08:00 08/31/24 08:05 08/31/24 08:20 Temperature Pulse Rate 117 H 118 H Respiratory Rate 25 H Blood Pressure Pulse Oximetry 94 Oxygen Delivery Mechanical Ventilation Fraction of Inspired Oxygen 70 80 08/31/24 08:29 08/31/24 08:31 08/31/24 09:03 Temperature Pulse Rate 117 H 117 H 113 H Respiratory Rate 25 H 25 H 23 H Blood Pressure Pulse Oximetry Oxygen Delivery Fraction of Inspired Oxygen Intake/Output Intake/Output: Intake & Output 08/28/24 08/29/24 08/30/24 08/31/24 23:59 23:59 23:59 23:59 Intake Total 3300 3105.4 430.2 Output Total 2900 250 Balance 3300 205.4 180.2 Meds/Results Medications: Active Medications Generic Name Dose Route Start Last Admin Trade Name Freq PRN Reason Stop Dose Admin Acetaminophen 650 mg 08/29/24 18:17 Acetaminophen 325 Mg Tablet PO Q4H PRN Mild Pain (1-3) or Fever Acetaminophen 650 mg 08/30/24 00:43 08/30/24 06:56 Acetaminophen 650 Mg Suppository RECTAL 650 mg Q6H PRN Administration Mild Pain (1-3) or Fever Acyclovir 400 mg 08/30/24 14:00 08/31/24 06:45 Acyclovir 200 Mg Capsule FEED TUBE 09/09/24 06:01 Not Given Q8HR [facility] Dextrose 12.5 gm 08/29/24 20:42 08/29/24 23:59 Dextrose 50% 25 Gm/50 Ml Syringe IV PUSH 12.5 gm PRN PRN Administration Hypoglycemia Protocol Glucagon 1 mg 08/29/24 20:42 Glucagon For Inj 1 Mg Vial IM PRN PRN Hypoglycemia Protocol Glucose 15 gm 08/29/24 20:42 Glucose Oral Gel 15 Gm Of Glucse In 37.5 Gm Tube PO PRN PRN Hypoglycemia Protocol Heparin Sodium (Porcine) 5,000 units 08/30/24 09:00 08/31/24 08:50 Heparin Sodium 5,000 Units/Ml Vial SUB-Q 5,000 units Q12HR [facility]YS Administration Hydrocortisone Sodium Succinate 100 mg 09/01/24 09:00 Hydrocortisone Sodium Succinate 100 Mg/2 Ml Vial IV PUSH QAM RHYS Dextrose 1,000 mls @ 100 mls/hr 08/29/24 20:42 Dextrose 5% 1,000 Ml IVPB PRN PRN Hypoglycemia Protocol Dextrose/Sodium Chloride 1,000 mls @ 50 mls/hr 08/29/24 20:55 08/30/24 20:58 Dextrose 5% Sodium Chloride 0.9% IV CONT 50 mls/hr .Q20H RHYS Administration Cefepime HCl 2 gm in 50 mls @ 100 mls/hr 08/30/24 10:00 08/31/24 08:48 Maxipime 2 Gm/Ns 50 Ml IVPB 100 mls/hr Q12HR RHYS Administration Vancomycin HCl 1,000 mg in 250 mls @ 250 mls/hr 08/31/24 12:00 Vancomycin 1,000 Mg/Ns 250 Ml IVPB Q24H [facility]YS Fentanyl Citrate 2,500 mcg in 250 mls @ 20 mls/hr 08/30/24 10:20 08/31/24 06:00 Fentanyl 2,500 Mcg/Ns 250 Ml IV CONT 200 mcg/hr .[id number] RHYS 20 mls/hr Titration Protocol 200 MCG/HR Midazolam HCl 100 mg in 100 mls @ 8 mls/hr 08/30/24 10:20 08/31/24 09:03 Versed 100 Mg/Ns 100 Ml IV CONT 8 mg/hr .[id number] RHYS 8 mls/hr Titration Protocol 8 MG/HR Levofloxacin/Dextrose 750 mg in 150 mls @ 100 mls/hr 08/30/24 14:00 08/30/24 19:59 Levaquin 750 Mg/D5w 150 Ml IVPB Infused Q24H RHYS Infusion Propofol 100 mls @ 6.084 mls/hr 08/31/24 08:30 08/31/24 08:31 Diprivan IV CONT 20 mcg/kg/min .[id number] RHYS 6.08 mls/hr Administration Protocol 20 MCG/KG/MIN Insulin Aspart 3 - 6 units 08/30/24 10:30 08/31/24 08:39 Insulin Aspart (*Bkc) 100 Units/Ml SUB-Q Not Given Q4H RHYS Protocol Multi-Ingred Cream/Lotion/Oil/Oint 1 applic 08/30/24 10:20 08/31/24 08:51 Mineral Oil/White Petrolatum Ointment EACH EYE 1 applic Q12HR RHYS Administration Pantoprazole Sodium 40 mg 08/30/24 10:40 08/31/24 08:50 Pantoprazole Sodium Iv 40 Mg Vial IV PUSH 40 mg Q12HR RHYS Administration Prednisolone Acetate 1 drop 08/30/24 21:00 08/31/24 08:51 Prednisolone Acetate 1% Ophth 5 Ml RIGHT EYE 1 drop Q12HR RHYS Administration Sodium Chloride 10 ml 08/30/24 14:00 08/31/24 06:46 Central Line Flush IV PUSH 10 ml Q8HR RHYS Administration Sodium Chloride 10 ml 08/30/24 12:17 Central Line Flush IV PUSH PRN PRN with TPN bag changes Sodium Chloride 20 ml 08/30/24 12:17 Central Line Flush IV PUSH PRN PRN after blood draws Radiology Results: ITS Impressions Head CT 08/29/24 21:55 Impression: No acute intracranial hemorrhage or suspicious mass effect. Chest/Abdomen/Pelvis CT 08/29/24 21:57 IMPRESSION: Dense bilateral multifocal infiltrates, predominantly perihilar, as detailed above. No additional source is detected for patient's profound sepsis. Abdomen X-Ray 08/30/24 11:02 IMPRESSION: Bilateral pneumonia. Differential include pulmonary edema. Chest X-Ray 08/31/24 08:26 Impression: Stable diffuse pulmonary disease. No pneumothorax. Stable support tubes. Labs Labs: Laboratory Results - last 24 hr 08/30/24 08/30/24 08/30/24 09:31 11:00 14:00 WBC RBC Hgb Hct MCV MCH MCHC RDW Plt Count MPV Immature Gran % (Auto) Neut % (Auto) Lymph % (Auto) [place]zie % (Auto) Eos % (Auto) Baso % (Auto) Lymph # (Auto) [place]zie # (Auto) Eos # (Auto) Baso # (Auto) Abs Immat Gran (auto) Absolute Neuts (auto) Absolute Nucleated RBC Total Counted Neutrophils % (Manual) Band Neutrophils % Lymphocytes % (Manual) Monocytes % (Manual) Nucleated RBC % Abs Neuts (Manual) Abs Lymphs (Manual) Abs Monocytes (Manual) Platelet Estimate Hypochromasia Anisocytosis Ovalocytes Mary Cells Schistocytes Puncture Site Right radial Right radial ABG pH 7.499 H 7.413 ABG pCO2 23.2 L* 29.3 L ABG pO2 65.5 L 176.6 H ABG PO2/FiO2 Ratio 0.99 1.77 ABG HCO3 17.6 L 18.3 L ABG O2 Saturation 94.9 L 99.2 ABG O2 Content 11.2 L 12.6 L ABG Base Excess -4.6 -5.5 A-a Gradient 379.9 507.1 Oxyhemoglobin 93.4 98.3 Carboxyhemoglobin 0.5 Methemoglobin 0.3 Reduced Hemoglobin 5.8 H Total Hemoglobin 8.5 L 8.8 L O2 Delivery Device High flow nasal aida Ventilator O2 Liters/Min 45.0 Not Reportable Minute Volume Not Reportable Vent Rate 20 Vent Mode Cmv FiO2 66 100 Tidal Volume 370 PEEP 8 Peak Inspir Pressure Not Reportable Pressure Support Not Reportable Sodium Potassium Chloride Carbon Dioxide Anion Gap BUN Creatinine Estim Creat Clear Calc Estimated GFR Glucose POC Capillary Glucose 83 Calcium Magnesium Total Bilirubin AST ALT Alkaline Phosphatase C-Reactive Protein NT-Pro-B Natriuret Pep Total Protein Albumin Procalcitonin Urine Opiates Screen Urine Methadone Screen Ur Barbiturates Screen Ur Phencyclidine Scrn Ur Amphetamine Screen U Benzodiazepines Scrn Urine Cocaine Screen U Cannabinoids Screen HIV 1&2 Ab/P24 Ag 4thGn 08/30/24 08/30/24 08/30/24 15:03 18:05 21:34 WBC RBC Hgb Hct MCV MCH MCHC RDW Plt Count MPV Immature Gran % (Auto) Neut % (Auto) Lymph % (Auto) Benzie % (Auto) Eos % (Auto) Baso % (Auto) Lymph # (Auto) Benzie # (Auto) Eos # (Auto) Baso # (Auto) Abs Immat Gran (auto) Absolute Neuts (auto) Absolute Nucleated RBC Total Counted Neutrophils % (Manual) Band Neutrophils % Lymphocytes % (Manual) Monocytes % (Manual) Nucleated RBC % Abs Neuts (Manual) Abs Lymphs (Manual) Abs Monocytes (Manual) Platelet Estimate Hypochromasia Anisocytosis Ovalocytes [place] Cells Schistocytes Puncture Site ABG pH ABG pCO2 ABG pO2 ABG PO2/FiO2 Ratio ABG HCO3 ABG O2 Saturation ABG O2 Content ABG Base Excess A-a Gradient Oxyhemoglobin Carboxyhemoglobin Methemoglobin Reduced Hemoglobin Total Hemoglobin O2 Delivery Device O2 Liters/Min Minute Volume Vent Rate Vent Mode FiO2 Tidal Volume PEEP Peak Inspir Pressure Pressure Support Sodium Potassium Chloride Carbon Dioxide Anion Gap BUN Creatinine Estim Creat Clear Calc Estimated GFR Glucose POC Capillary Glucose 84 102 Calcium Magnesium Total Bilirubin AST ALT Alkaline Phosphatase C-Reactive Protein NT-Pro-B Natriuret Pep Total Protein Albumin Procalcitonin Urine Opiates Screen Negative Urine Methadone Screen Negative Ur Barbiturates Screen Negative Ur Phencyclidine Scrn Negative Ur Amphetamine Screen Negative U Benzodiazepines Scrn Positive A Urine Cocaine Screen Negative U Cannabinoids Screen Negative HIV 1&2 Ab/P24 Ag 4thGn 08/30/24 08/31/24 08/31/24 23:47 05:00 05:15 WBC RBC Hgb Hct MCV MCH MCHC RDW Plt Count MPV Immature Gran % (Auto) Neut % (Auto) Lymph % (Auto) Benzie % (Auto) Eos % (Auto) Baso % (Auto) Lymph # (Auto) Benzie # (Auto) Eos # (Auto) Baso # (Auto) Abs Immat Gran (auto) Absolute Neuts (auto) Absolute Nucleated RBC Total Counted Neutrophils % (Manual) Band Neutrophils % Lymphocytes % (Manual) Monocytes % (Manual) Nucleated RBC % Abs Neuts (Manual) Abs Lymphs (Manual) Abs Monocytes (Manual) Platelet Estimate Hypochromasia Anisocytosis Ovalocytes Mary Cells Schistocytes Puncture Site Left radial ABG pH 7.369 ABG pCO2 30.3 L ABG pO2 60.6 L ABG PO2/FiO2 Ratio 0.87 ABG HCO3 17.1 L ABG O2 Saturation 91.0 L ABG O2 Content 12.7 L ABG Base Excess -7.2 A-a Gradient 405.9 Oxyhemoglobin 89.2 L Carboxyhemoglobin 0.6 Methemoglobin 0.3 Reduced Hemoglobin 9.9 H Total Hemoglobin 10.1 L O2 Delivery Device Ventilator O2 Liters/Min Not Reportable Minute Volume Not Reportable Vent Rate 20 Vent Mode Cmv FiO2 70 Tidal Volume 370 PEEP 8 Peak Inspir Pressure Not Reportable Pressure Support Not Reportable Sodium Potassium Chloride Carbon Dioxide Anion Gap BUN Creatinine Estim Creat Clear Calc Estimated GFR Glucose POC Capillary Glucose 110 H Calcium Magnesium Total Bilirubin AST ALT Alkaline Phosphatase C-Reactive Protein NT-Pro-B Natriuret Pep Cancelled Total Protein Albumin Procalcitonin Urine Opiates Screen Urine Methadone Screen Ur Barbiturates Screen Ur Phencyclidine Scrn Ur Amphetamine Screen U Benzodiazepines Scrn Urine Cocaine Screen U Cannabinoids Screen HIV 1&2 Ab/P24 Ag 4thGn 08/31/24 08/31/24 05:40 07:15 WBC 14.8 H RBC 2.67 L Hgb 8.2 L Hct 25.8 L MCV 96.6 MCH 30.7 MCHC 31.8 L RDW 24.5 H Plt Count 336 MPV 10.1 Immature Gran % (Auto) Not Reportable Neut % (Auto) Not Reportable Lymph % (Auto) Not Reportable Benzie % (Auto) Not Reportable Eos % (Auto) Not Reportable Baso % (Auto) Not Reportable Lymph # (Auto) Not Reportable Benzie # (Auto) Not Reportable Eos # (Auto) Not Reportable Baso # (Auto) Not Reportable Abs Immat Gran (auto) Not Reportable Absolute Neuts (auto) Not Reportable Absolute Nucleated RBC Not Reportable Total Counted 100 Neutrophils % (Manual) 71 Band Neutrophils % 19 H Lymphocytes % (Manual) 6 L Monocytes % (Manual) 4 Nucleated RBC % Not Reportable Abs Neuts (Manual) 13.32 H Abs Lymphs (Manual) 0.88 L Abs Monocytes (Manual) 0.59 Platelet Estimate Adequate Hypochromasia 1+ Anisocytosis 1+ Ovalocytes 1+ [place] Cells 2+ Schistocytes None seen Puncture Site ABG pH ABG pCO2 ABG pO2 ABG PO2/FiO2 Ratio ABG HCO3 ABG O2 Saturation ABG O2 Content ABG Base Excess A-a Gradient Oxyhemoglobin Carboxyhemoglobin Methemoglobin Reduced Hemoglobin Total Hemoglobin O2 Delivery Device O2 Liters/Min Minute Volume Vent Rate Vent Mode FiO2 Tidal Volume PEEP Peak Inspir Pressure Pressure Support Sodium 137 Potassium 3.7 Chloride 112 H Carbon Dioxide 17 L Anion Gap 8 BUN 15 Creatinine 0.63 L Estim Creat Clear Calc 57 Estimated GFR > 60 Glucose 114 H POC Capillary Glucose 93 Calcium 8.2 L Magnesium 2.2 Total Bilirubin 0.2 AST 177 H ALT 73 H Alkaline Phosphatase 123 C-Reactive Protein 39.4 H NT-Pro-B Natriuret Pep 1160 H Total Protein 4.7 L Albumin 2.3 L Procalcitonin 11.5 Urine Opiates Screen Urine Methadone Screen Ur Barbiturates Screen Ur Phencyclidine Scrn Ur Amphetamine Screen U Benzodiazepines Scrn Urine Cocaine Screen U Cannabinoids Screen HIV 1&2 Ab/P24 Ag 4thGn Negative Quality VTE Prophylaxis VTE prophylaxis: pharmacologic ordered
[2024-08-31 09:41] LABS: Appearance Bronchial Fluid Cloudy; Color Bronchial Fluid Colorless; Eosinophils Bronchial Fluid 1 %; Lymphocytes Bronchial Fluid 60 %; Macrophages Bronchial Fluid 4; Monocytes Bronchial Fluid 23 %; Neutrophils Bronchial Fluid 7 %; Source Bronchial Fluid Bronchial Lavage
[2024-08-31 09:43] LABS: Other Cells Bronchial Fluid 5 %
--- NOTE | 2024-08-31 10:10 | PM.OP ---
Procedure Note - Brief Procedure Note - Brief Date of procedure: 08/31/24 sepsis, pneumonia, meredith, hypokalemia Procedure performed: Bronchoscopy with BAL and wash Surgeon: Cristóbal Frost MD Description of procedure: After informed consent and a time-out the patient 2 mL of lidocaine was administered to the main sun through the existing ET tube. Inspection of the main trachea showed normal mucosa with no evidence of herpes tracheobronchitis. Bronchoalveolar lavage was performed and the medial segment of the right middle lobe with 150 mL instilled and 81 mL clear yellowish fluid returned. There was no evidence of alveolar hemorrhage The remainder of the right lung was inspected after the BAL and all segments were patent. The left lung was inspected and all segments patent. Approximately 13 mL of bronchial washing was obtained Lowest saturation during the procedure was 91%. At the end of the procedure the Peak airway pressure was unchanged from 13 pre procedure to 11 postprocedure. Bronchoalveolar lavage was sent for cell count, bacterial stain and culture, fungal stain and culture, AFB stain and culture, Legionella DFA, Pneumocystis sun I antigen testing CMV culture, chlamydia DNA, and cytology. Bronchial washings were sent for bacterial stain and culture, fungal stain and culture and AFB stain and culture. postprocedure chest x-ray: Portable chest x-ray Comparison: 08/31/2024 12:00 AM Clinical History: Status post bronchoscopy Findings: Endotracheal tube, NG tube, and right PICC line are in place. Extensive pulmonary consolidation and present. No pneumothorax. Cardiomediastinal silhouette is stable. Bones and soft tissues are unremarkable. Impression: Stable diffuse pulmonary disease. No pneumothorax. Stable support tubes.
--- NOTE | 2024-08-31 10:57 | PCNFU ---
Nutrition Follow-Up Complete: Increased energy expenditure related to severe sepsis, mechanical ventilation as evidenced by need for tube feeding ~70% EER. Goal: Meet estimated nutrition needs Patient is progressing towards goal. We will continue current goal. Pt current nutrition is Vital AF 1.2 at 40 ml/hr Nutrition recommendation: [place] BID. Last recorded weight is 50.7 kg, stable Bowel Motility: Last reported BM 08/30 Labs Reviewed:Glu 114, Cr 0.63, Alb 2.3, Hct 25.8, Hgb 8.2 Meds Noted: Versed, Fentanyl, Propofol starting 20 [id number] kcals, Protonix. Skin: Stage III-pressure ulcer coccyx. Additional Notes: Patient remains on a mechanical vent. Tube feedings restarted today after bronchoscopy. Vital AF 12 at 40 ml/hr providing 1056 kcal/66 gm protein/713 ml water. Recommend goal rate at 50 ml/hr with Flush of 30 ml q 4 hours. Agree with diet orders at this time. Monitoring tube feeding orders, weights, labs, tolerance, plan of care, vent settings, vitals Follow up Tuesday/Tuesday.
[2024-08-31] MEDS: FENTANYL 2,500MCG/NS250ML(*CRX 2,500 MCG/250 ML BAG 20 MCG IV CONT ×2 (11:08→23:41)
[2024-08-31] MEDS: VANCOMYCIN 1,000 MG/NS 250 ML 1,000 MG/250 ML BAG 250 MG IVPB (12:29)
[2024-08-31] MEDS: levoFLOXacin 750 MG/D5W 150 ML 750 MG/150 ML BAG 150 MG IVPB (13:38)
[2024-08-31] MEDS: ACYCLOVIR 200 MG CAPSULE 400 MG FEED TUBE ×2 (13:39→21:25)
--- NOTE | 2024-08-31 17:11 | PC.NURSE ---
Retimed insulin administration due to the MAR not lining up with the q4h POC checks.
--- NOTE | 2024-08-31 18:21 | PC.NURSE ---
PT beginning to cough, and bite the tube but still not following commands. HR 130's and RR 25<. PT has been on 80% FIO2 for most of the day. O2 sat 88-90% , increased to 90% FIO2. Notified Dr James and received order to continue titrating the sedation until patient appears more comfortable and increase FIO2 until that point, then can begin to titrate down on FIO2. Order read back and verified.
[2024-08-31] MEDS: PROPOFOL IV EMULSION 100 ML 15.21 MG IV CONT (20:32)
[2024-08-31] MEDS: DEXTROSE 50% 25 GM/50 ML SYRINGE IV PUSH ×2 (20:40→20:55)
[2024-08-31] MEDS: DEXTROSE 5%/0.9% SOD CHL 1,000 ML 50 ML IV CONT (20:43)
--- NOTE | 2024-08-31 20:49 | PC.NURSE ---
pt with critically low blood sugar of 37 with recheck of 25, Dr. Friedman notified and gave RN orders for amp of D50 and to restart D5/0.9%NS at 50mL/hr
[2024-08-31 22:04] LABS: Anion Gap 10 mmol/L (4-12); Blood Urea Nitrogen 26 mg/dL (7-17); Calcium 8.7 mg/dL (8.4-10.2); Carbon Dioxide 17 mmol/L (22-30); Chloride 111 mmol/L (98-107); Estimated CRCL calculation 45 ml/min; Estimated Glomerular Filt Rate > 60; Glucose 266 mg/dL (65-110); Potassium 3.1 mmol/L (3.4-5.0); Sodium 138 mmol/L (137-145)
[2024-09-01] VITALS (35 sets, daily range): BP systolic 85–107; BP diastolic 51–74; PULSE 109–139; RESP 14–25; TEMP 36.8–39; O2SAT 93–100
[2024-09-01] MEDS: PROPOFOL IV EMULSION 100 ML 15.21 MG IV CONT ×2 (02:06→09:00)
[2024-09-01 04:34] LABS: Hematocrit 23.7 % (37.0-47.0); Hemoglobin 7.5 g/dL (12.0-15.0); Mean Corpuscular HGB Conc 31.6 g/dl (32-36); Mean Corpuscular Hemoglobin 30.4 pg (26-34); Mean Corpuscular Volume 96.0 fl (80-100); Platelet Count Result 140 k/mm3 (150-375); Red Blood Count 2.47 M/mm3 (4.2-5.4); White Blood Count 24.1 K/mm3 (4.5-10.0)
[2024-09-01 04:56] LABS: Anisocytosis 2+; Band Neutrophils Percent 12 % (0-6); Giant Platelets Present; Hypochromasia 1+; Lymphocytes Absolute Manual 1.68 K/mm3 (1.1-4.5); Lymphocytes Percent Manual 7.0 % (18-44); Macrocytosis 1+ (NORMAL); Monocytes Absolute Manual 0.48 K/mm3 (0.1-0.90); Monocytes Percent Manual 2 % (3-9); Neutrophils Absolute Manual 21.93 K/mm3 (1.3-6.7); Neutrophils Percent Manual 79 % (46-73); Ovalocytes 1+; Schistocytes None Seen; Smudge Cells PRESENT; Total Cells Counted 100
[2024-09-01 04:59] LABS: Alanine Aminotransferase 56 U/L (6-35); Albumin Level 2.2 g/dL (3.5-5.1); Alkaline Phosphatase 122 U/L (38-126); Anion Gap 7 mmol/L (4-12); Aspartate Amino Transferase 118 U/L (14-36); Bilirubin,Total 0.2 mg/dL (0.2-1.3); Blood Urea Nitrogen 30 mg/dL (7-17); Calcium 8.9 mg/dL (8.4-10.2); Carbon Dioxide 19 mmol/L (22-30); Chloride 114 mmol/L (98-107); Estimated CRCL calculation 45 ml/min; Estimated Glomerular Filt Rate > 60; Glucose 111 mg/dL (65-110); Magnesium 2.1 mg/dL (1.6-2.3); Potassium 3.4 mmol/L (3.4-5.0); Sodium 140 mmol/L (137-145); Total Protein 4.4 g/dL (6.3-8.2)
[2024-09-01] MEDS: ACYCLOVIR 200 MG CAPSULE 400 MG FEED TUBE ×3 (06:07→21:10)
[2024-09-01 06:08] LABS: Alveolar/Arterial O2 Gradient 551.2 mmHg; Arterial Blood Gas Ventilator rate 20 /MIN; Carboxyhemoglobin 0.6 % THb (0-2.0); Fractional Inspired Oxygen 100 %; HCO3 ABG 17.9 mEq/l (22.0-26.0); Methemoglobin ABG 0.3 %THb (0-1.5); Modified Allen's Test Pass; Oxygen Content ABG 11.5 %vol (16.0-22.0); Oxygen Saturation ABG 98.2 % (95.0-100.0); PCO2 ABG 36.8 mmHg (35.0-45.0); PO2 ABG 125.0 mmHg (80.0-100.0); PO2 FiO2 Ratio Arterial Blood 1.25 %; Reduced Hemoglobin 2.0 %THb (0-5.0); Site Drawn RIGHT RADIAL
[2024-09-01 06:09] LABS: Arterial Blood Gas Tidal Volume 370 ml
[2024-09-01] MEDS: CENTRAL LINE FLUSH 10 ML IV PUSH ×3 (06:10→22:22)
[2024-09-01] MEDS: DEXTROSE 5%/0.9% SOD CHL 1,000 ML 100 ML IV CONT ×2 (07:00→07:04)
[2024-09-01] MEDS: CEFEPIME 2 GM/NS 50 ML 2 GM/50 ML BAG IVPB ×2 (08:58→23:03)
[2024-09-01] MEDS: PANTOPRAZOLE SODIUM IV 40 MG VIAL IV PUSH ×2 (08:59→20:55)
[2024-09-01] MEDS: METOCLOPRAMIDE HCL 10 MG/10 ML SOLN UDC FEED TUBE ×4 (08:59→23:07)
[2024-09-01] MEDS: HYDROCORTISONE SODIUM SUCCINATE 100 MG/2 ML VIAL IV PUSH (09:00)
[2024-09-01] MEDS: MIDAZOLAM 100MG/NS 100ML(*CRX) 100 MG/100 ML BAG 6 MG IV CONT (09:01)
[2024-09-01] MEDS: MINERAL OIL/WHITE PETROLATUM OINTMENT 1 APPLIC EACH EYE ×2 (09:02→20:57)
[2024-09-01] MEDS: prednisoLONE ACETATE 1% OPHTH 5 ML 1 DROP RIGHT EYE ×2 (09:03→20:57)
--- NOTE | 2024-09-01 10:29 | WPDINTPN ---
Progress Note: A&P Assessment and Plan (1) Acute respiratory failure: Code(s): J96.00 - Acute respiratory failure, unspecified whether with hypoxia or hypercapnia Status: Acute Assessment and Plan: Acute respiratory failure and sepsis secondary to bilateral pneumonia in an immunocompromised patient who is currently on methotrexate and hydroxychloroquine. ARDS is another possibility 08/29 CT Chest Dense bilateral multifocal infiltrates, predominantly perihilar, as detailed above. No additional source is detected for patient's profound sepsis 08/30 During my assessment patient was tachypneic and tachycardic and in respiratory distress although she was maintaining her oxygen saturation Option of intubation and mechanical ventilation was discussed the patient and patient was agreeable as she was in respiratory distress. Risks and benefits were explained to the patient and her family and they all agree were agreeable and verbalized understanding to proceed. Patient was transferred to ICU and electively intubated Placed on CMV with low tidal volume and PEEP of 8 and FiO2 o has been weaned down to 75 per ABG reviewed Continue broad-spectrum antibiotics in the form of vancomycin cefepime and [place] Blood and sputum culture ordered and PCR for influenza RSV and COVID was negative Urine Legionella and pneumococcal antigen Pending Mycoplasma IgM 08/31 patient underwent bronchoscopy which did not show any LR hemorrhage or tracheobronchitis. BAL samples collected and sent to the lab Decrease hydrocortisone dose Wean FiO2. Increase PEEP to 12 (2) Gastroesophageal reflux disease: Qualifiers: Esophagitis presence: esophagitis presence not specified Qualified Code(s): K21.9 - Gastro-esophageal reflux disease without esophagitis Code(s): K21.9 - Gastro-esophageal reflux disease without esophagitis Status: Acute Assessment and Plan: PPI q.12 hours (3) FRANK (acute kidney injury): Code(s): N17.9 - Acute kidney failure, unspecified Status: Acute Assessment and Plan: Patient presented with elevated creatinine which was likely secondary to sepsis. Creatinine is improved with IV fluids Cut down on further IV fluids Monitor urine output electrolytes and creatinine Lasix IV [place] catheter for accurate I&Os (4) Sepsis: Qualifiers: Sepsis acute organ dysfunction status: with acute organ dysfunction Sepsis type: sepsis due to unspecified organism Severe sepsis acute organ dysfunction type: encephalopathy Severe sepsis shock status: without septic shock Qualified Code(s): A41.9 - Sepsis, unspecified organism; R65.20 - Severe sepsis without septic shock; G93.41 - Metabolic encephalopathy Code(s): A41.9 - Sepsis, unspecified organism Status: Acute Assessment and Plan: See above (5) Immunosuppressed status: Code(s): D89.9 - Disorder involving the immune mechanism, unspecified Status: Acute Assessment and Plan: See above (6) Rheumatoid arthritis: Code(s): M06.9 - Rheumatoid arthritis, unspecified Status: Acute Assessment and Plan: Hold methotrexate and hydroxychloroquine (7) Toxic metabolic encephalopathy: Code(s): G92.8 - Other toxic encephalopathy Status: Acute Assessment and Plan: Patient presented with altered mental status and confusion which appears to be encephalopathy ache. Patient has sepsis and was on several medication including tramadol and benzodiazepine at home Patient appears much more awake and alert this morning before intubation and is now oriented x [address] was negative TSH was normal Patient obviously now sedated and intubated. Patient has been on benzodiazepine and pain medications chronically and requiring significant amount of medications to keep her sedated (8) Pneumonia: Qualifiers: Laterality: bilateral Lung location: unspecified part of lung Pneumonia type: due to unspecified organism Qualified Code(s): J18.9 - Pneumonia, unspecified organism Code(s): J18.9 - Pneumonia, unspecified organism Status: Acute Assessment and Plan: See above (9) Urinary tract infection: Qualifiers: Hematuria presence: with hematuria Urinary tract infection type: site unspecified Qualified Code(s): N39.0 - Urinary tract infection, site not specified; R31.9 - Hematuria, unspecified Code(s): N39.0 - Urinary tract infection, site not specified Status: Acute Assessment and Plan: UA suggestive of UTI Cultures ordered On broad-spectrum antibiotics (10) Herpes labialis: Code(s): B00.1 - Herpesviral vesicular dermatitis Status: Acute Assessment and Plan: Continue acyclovir through tube (11) Hypoglycemia: Code(s): E16.2 - Hypoglycemia, unspecified Status: Acute Assessment and Plan: Patient had couple episodes of hypoglycemia early in the course. Patient is on D5 half-normal saline along with tube feeds. To consult fluid I will change flushes to D5 water and changed infusion to D10 Plan DVT prophylaxis -heparin Stress ulcer prophylaxis -Protonix Nutrition -contain Tube Feeds. Add Reglan Code Status - Full Code Total Critical Care Time - 35 minutes Due to a high probability of clinically significant, life threatening deterioration, the patient required my highest level of preparedness to intervene emergently and I personally spent this critical care time directly and personally managing the patient. This critical care time included obtaining a history; examining the patient; pulse oximetry; ordering and review of studies; arranging urgent treatment with development of a management plan; evaluation of patient's response to treatment; frequent reassessment; and discussions with other providers. It was exclusive of separately billable procedures and treating other patients and teaching time. Please see Assessment and Plan section and the rest of the note for further information on patient assessment and treatment Subjective Date/time seen: 09/01/24 Continues to be on mechanical ventilation. Peep of 10 FiO2 80% Patient difficult to sedated requiring large amount of sedation to prevent asynchrony with the ventilator Sedated with propofol Versed and fentanyl Sinus tachycardia Afebrile Tube feeds at 40 but high residuals overnight. Acceptable urine out Interval history: 68-year-old with a history of rheumatoid arthritis, Crohn's, GERD admitted to ICU for pneumonia and respiratory failure requiring intubation and mechanical ventilation Review of Systems Review of Systems: ROS unobtainable: Yes unobtainable due to endotracheal tube, unobtainable due to medical condition and unobtainable due to mental status Exam Narrative: General: Pt is now sedated, intubated and on mechanical ventilation Lungs/Chest: Trachea central clear BS B/L, bibasilar crackles Cardiac: Tachycardia RRR. Normal S1 S2. No murmurs Circulation: Pedal pulses are intact and symmetrical. Abdomen: Decreased bowel sounds. . Soft. NT. ND. Extremities: No clubbing, cyanosis or edema. Warm : [place] in place Neurologic: Prior to intubation patient was AO x3 and was moving all 4 extremities, PERRL now sedated and intubated Skin: 08/30 Edema with breakdown of the screen which appears to be popped blisters on right labia. Patient was examined in the presence of female docking saw operator was patient's nurse. She also has several scabbed wounds on her both legs which are in various healing stage but no open or infected wound. Objective Data Vital Signs Vital Signs: Vital Signs - 24 hr 08/31/24 11:00 08/31/24 11:08 08/31/24 11:08 Temperature Pulse Rate 109 H 107 H 107 H Respiratory Rate 21 H 23 H 23 H Blood Pressure 84/62 L Pulse Oximetry 96 Oxygen Delivery Fraction of Inspired Oxygen 08/31/24 11:36 08/31/24 11:36 08/31/24 11:36 Temperature Pulse Rate 108 H 117 H 116 H Respiratory Rate 21 H 23 H Blood Pressure Pulse Oximetry 95 Oxygen Delivery Mechanical Ventilation Fraction of Inspired Oxygen 80 08/31/24 11:56 08/31/24 12:00 08/31/24 12:00 Temperature 37.2 C Pulse Rate 114 H 110 H Respiratory Rate 24 H Blood Pressure 112/82 Pulse Oximetry 92 94 Oxygen Delivery Mechanical Ventilation Fraction of Inspired Oxygen 80 80 08/31/24 12:00 08/31/24 12:00 08/31/24 12:00 Temperature Pulse Rate 114 H 114 H 114 H Respiratory Rate 25 H 25 H Blood Pressure Pulse Oximetry Oxygen Delivery Fraction of Inspired Oxygen 08/31/24 12:00 08/31/24 13:00 08/31/24 13:46 Temperature Pulse Rate 114 H 109 H 107 H Respiratory Rate 25 H 23 H Blood Pressure 97/68 L Pulse Oximetry 94 95 Oxygen Delivery Mechanical Ventilation Fraction of Inspired Oxygen 80 08/31/24 14:00 08/31/24 14:00 08/31/24 14:00 Temperature Pulse Rate 109 H 108 H 117 H Respiratory Rate 23 H 24 H Blood Pressure 95/71 L Pulse Oximetry 93 Oxygen Delivery Fraction of Inspired Oxygen 08/31/24 14:03 08/31/24 14:06 08/31/24 16:00 Temperature 36.8 C Pulse Rate 107 H 108 H 120 H Respiratory Rate 23 H 23 H 24 H Blood Pressure 100/69 Pulse Oximetry 91 Oxygen Delivery Fraction of Inspired Oxygen 08/31/24 16:00 08/31/24 16:00 08/31/24 16:00 Temperature Pulse Rate 120 H 120 H 120 H Respiratory Rate 22 H 22 H Blood Pressure Pulse Oximetry 94 Oxygen Delivery Mechanical Ventilation Fraction of Inspired Oxygen 80 08/31/24 16:00 08/31/24 16:00 08/31/24 16:00 Temperature Pulse Rate 120 H 120 H Respiratory Rate 23 H Blood Pressure Pulse Oximetry Oxygen Delivery Fraction of Inspired Oxygen 80 08/31/24 17:00 08/31/24 17:16 08/31/24 17:42 Temperature Pulse Rate 128 H 129 H 138 H Respiratory Rate 23 H 28 H Blood Pressure Pulse Oximetry 92 Oxygen Delivery Mechanical Ventilation Fraction of Inspired Oxygen 80 08/31/24 17:44 08/31/24 18:00 08/31/24 18:00 Temperature Pulse Rate 137 H 137 H 137 H Respiratory Rate 27 H 28 H 27 H Blood Pressure Pulse Oximetry Oxygen Delivery Fraction of Inspired Oxygen 08/31/24 18:00 08/31/24 18:00 08/31/24 18:20 Temperature Pulse Rate 137 H 138 H 137 H Respiratory Rate 27 H 27 H Blood Pressure 108/84 Pulse Oximetry 94 Oxygen Delivery Fraction of Inspired Oxygen 08/31/24 19:31 08/31/24 19:37 08/31/24 20:00 Temperature Pulse Rate 139 H 140 H 138 H Respiratory Rate 27 H 27 H 24 H Blood Pressure Pulse Oximetry Oxygen Delivery Fraction of Inspired Oxygen 08/31/24 20:00 08/31/24 20:00 08/31/24 20:00 Temperature Pulse Rate 138 H 138 H 140 H Respiratory Rate 24 H 24 H 25 H Blood Pressure Pulse Oximetry 93 Oxygen Delivery Mechanical Ventilation Fraction of Inspired Oxygen 100 08/31/24 20:00 08/31/24 20:00 08/31/24 20:00 Temperature 38.1 C H Pulse Rate 140 H 140 H Respiratory Rate 25 H Blood Pressure 100/76 Pulse Oximetry 93 Oxygen Delivery Fraction of Inspired Oxygen 100 08/31/24 20:05 08/31/24 20:05 08/31/24 20:09 Temperature Pulse Rate 141 H 141 H 141 H Respiratory Rate 26 H 26 H Blood Pressure Pulse Oximetry 91 Oxygen Delivery Mechanical Ventilation Fraction of Inspired Oxygen 100 08/31/24 20:32 08/31/24 20:32 08/31/24 20:59 Temperature Pulse Rate 141 H 141 H 148 H Respiratory Rate 27 H 27 H 29 H Blood Pressure Pulse Oximetry Oxygen Delivery Fraction of Inspired Oxygen 08/31/24 22:00 08/31/24 22:00 08/31/24 22:00 Temperature Pulse Rate 146 H 146 H 146 H Respiratory Rate 24 H 24 H 24 H Blood Pressure Pulse Oximetry Oxygen Delivery Fraction of Inspired Oxygen 08/31/24 22:00 08/31/24 22:00 08/31/24 22:24 Temperature 37.6 C H Pulse Rate 145 H 145 H 145 H Respiratory Rate 24 H 20 Blood Pressure 108/75 Pulse Oximetry 95 Oxygen Delivery Fraction of Inspired Oxygen 08/31/24 23:06 08/31/24 23:41 08/31/24 23:41 Temperature Pulse Rate 144 H 142 H 142 H Respiratory Rate 23 H 23 H Blood Pressure Pulse Oximetry 92 Oxygen Delivery Mechanical Ventilation Fraction of Inspired Oxygen 100 09/01/24 00:00 09/01/24 00:00 09/01/24 00:00 Temperature 36.8 C Pulse Rate 137 H 137 H Respiratory Rate 20 20 Blood Pressure 107/69 Pulse Oximetry 97 97 Oxygen Delivery Mechanical Ventilation Fraction of Inspired Oxygen 100 100 09/01/24 00:00 09/01/24 00:00 09/01/24 00:00 Temperature Pulse Rate 137 H 139 H 139 H Respiratory Rate 23 H 23 H Blood Pressure Pulse Oximetry Oxygen Delivery Fraction of Inspired Oxygen 09/01/24 00:00 09/01/24 02:00 09/01/24 02:00 Temperature Pulse Rate 139 H 132 H 132 H Respiratory Rate 23 H 23 H 23 H Blood Pressure Pulse Oximetry Oxygen Delivery Fraction of Inspired Oxygen 09/01/24 02:00 09/01/24 02:00 09/01/24 02:00 Temperature Pulse Rate 132 H 132 H 132 H Respiratory Rate 23 H 23 H Blood Pressure 102/74 Pulse Oximetry 99 Oxygen Delivery Fraction of Inspired Oxygen 09/01/24 02:06 09/01/24 02:06 09/01/24 02:09 Temperature Pulse Rate 133 H 133 H 132 H Respiratory Rate 23 H 23 H Blood Pressure Pulse Oximetry 98 Oxygen Delivery Mechanical Ventilation Fraction of Inspired Oxygen 100 09/01/24 04:00 09/01/24 04:00 09/01/24 04:00 Temperature Pulse Rate 135 H 135 H Respiratory Rate 23 H Blood Pressure Pulse Oximetry 97 Oxygen Delivery Mechanical Ventilation Fraction of Inspired Oxygen 100 100 09/01/24 04:00 09/01/24 04:00 09/01/24 04:00 Temperature 37.9 C H Pulse Rate 135 H 135 H 135 H Respiratory Rate 23 H 23 H 23 H Blood Pressure 105/63 Pulse Oximetry 97 Oxygen Delivery Fraction of Inspired Oxygen 09/01/24 04:00 09/01/24 05:30 09/01/24 06:00 Temperature Pulse Rate 135 H 127 H 129 H Respiratory Rate 23 H 24 H Blood Pressure Pulse Oximetry 98 Oxygen Delivery Mechanical Ventilation Fraction of Inspired Oxygen 100 09/01/24 06:00 09/01/24 06:00 09/01/24 06:00 Temperature Pulse Rate 129 H 129 H 129 H Respiratory Rate 24 H 24 H Blood Pressure Pulse Oximetry Oxygen Delivery Fraction of Inspired Oxygen 09/01/24 06:00 09/01/24 06:17 09/01/24 07:52 Temperature 37.6 C Pulse Rate 129 H 133 H Respiratory Rate 24 H 24 H Blood Pressure 101/64 95/61 L Pulse Oximetry 100 96 Oxygen Delivery Fraction of Inspired Oxygen 90 09/01/24 08:00 09/01/24 08:00 09/01/24 08:00 Temperature Pulse Rate 135 H 135 H 135 H Respiratory Rate 24 H 24 H 24 H Blood Pressure Pulse Oximetry Oxygen Delivery Fraction of Inspired Oxygen 09/01/24 08:00 09/01/24 08:00 09/01/24 08:03 Temperature Pulse Rate 136 H Respiratory Rate Blood Pressure Pulse Oximetry 97 97 Oxygen Delivery Mechanical Ventilation Mechanical Ventilation Fraction of Inspired Oxygen 80 80 80 09/01/24 09:00 09/01/24 09:00 09/01/24 09:01 Temperature Pulse Rate 131 H 131 H 132 H Respiratory Rate 25 H 25 H 25 H Blood Pressure Pulse Oximetry Oxygen Delivery Fraction of Inspired Oxygen 09/01/24 09:01 Temperature Pulse Rate 132 H Respiratory Rate 25 H Blood Pressure Pulse Oximetry Oxygen Delivery Fraction of Inspired Oxygen Intake/Output Intake/Output: Intake & Output 08/29/24 08/30/24 08/31/24 09/01/24 23:59 23:59 23:59 23:59 Intake Total 3300 3105.4 2409.2 1523.1 Output Total 2900 650 275 Balance 3300 205.4 1759.2 1248.1 Meds/Results Medications: Active Medications Generic Name Dose Route Start Last Admin Trade Name Freq PRN Reason Stop Dose Admin Acetaminophen 650 mg 08/29/24 18:17 Acetaminophen 325 Mg Tablet PO Q4H PRN Mild Pain (1-3) or Fever Acetaminophen 650 mg 08/30/24 00:43 08/30/24 06:56 Acetaminophen 650 Mg Suppository RECTAL 650 mg Q6H PRN Administration Mild Pain (1-3) or Fever Acyclovir 400 mg 08/30/24 14:00 09/01/24 06:07 Acyclovir 200 Mg Capsule FEED TUBE 09/09/24 06:01 400 mg Q8HR RHYS Administration Dextrose 12.5 gm 08/29/24 20:42 08/31/24 20:55 Dextrose 50% 25 Gm/50 Ml Syringe IV PUSH 12.5 gm PRN PRN Administration Hypoglycemia Protocol Furosemide 20 mg 09/01/24 10:28 Furosemide Inj 40 Mg/4 Ml Vial IV PUSH 09/01/24 10:29 ONCE ONE Glucagon 1 mg 08/29/24 20:42 Glucagon For Inj 1 Mg Vial IM PRN PRN Hypoglycemia Protocol Glucose 15 gm 08/29/24 20:42 Glucose Oral Gel 15 Gm Of Glucse In 37.5 Gm Tube PO PRN PRN Hypoglycemia Protocol Heparin Sodium (Porcine) 5,000 units 08/30/24 09:00 08/31/24 21:23 Heparin Sodium 5,000 Units/Ml Vial SUB-Q 5,000 units Q12HR RHYS Administration Hydrocortisone Sodium Succinate 100 mg 09/01/24 09:00 09/01/24 09:00 Hydrocortisone Sodium Succinate 100 Mg/2 Ml Vial IV PUSH 100 mg QAM RHYS Administration Dextrose 1,000 mls @ 100 mls/hr 08/29/24 20:42 Dextrose 5% 1,000 Ml IVPB PRN PRN Hypoglycemia Protocol Cefepime HCl 2 gm in 50 mls @ 100 mls/hr 08/30/24 10:00 09/01/24 08:58 Maxipime 2 Gm/Ns 50 Ml IVPB 100 mls/hr Q12HR RHYS Administration Vancomycin HCl 1,000 mg in 250 mls @ 250 mls/hr 08/31/24 12:00 08/31/24 16:31 Vancomycin 1,000 Mg/Ns 250 Ml IVPB Infused Q24H RHYS Infusion Fentanyl Citrate 2,500 mcg in 250 mls @ 20 mls/hr 08/30/24 10:20 09/01/24 08:00 Fentanyl 2,500 Mcg/Ns 250 Ml IV CONT 200 mcg/hr .[id number] RHYS 20 mls/hr Titration Protocol 200 MCG/HR Midazolam HCl 100 mg in 100 mls @ 6 mls/hr 08/30/24 10:20 09/01/24 09:01 Versed 100 Mg/Ns 100 Ml IV CONT 6 mg/hr .[id number] RHYS 6 mls/hr Administration Protocol 6 MG/HR Levofloxacin/Dextrose 750 mg in 150 mls @ 100 mls/hr 08/30/24 14:00 08/31/24 16:31 Levaquin 750 Mg/D5w 150 Ml IVPB Infused Q24H [facility] Infusion Propofol 100 mls @ 15.21 mls/hr 08/31/24 08:30 09/01/24 09:00 Diprivan IV CONT 50 mcg/kg/min .[id number] RHYS 15.21 mls/hr Administration Protocol 50 MCG/KG/MIN Dextrose 1,000 mls @ 50 mls/hr 09/01/24 10:30 Dextrose 10% IV CONT .Q20H [facility] Insulin Aspart 3 - 6 units 08/31/24 16:39 09/01/24 09:05 Insulin Aspart (*Bkc) 100 Units/Ml SUB-Q Not Given Q4HR [facility] Protocol Metoclopramide HCl 10 mg 09/01/24 08:00 09/01/24 08:59 Metoclopramide Hcl 10 Mg/10 Ml Soln Udc FEED TUBE 10 mg Q6HR RHYS Administration Metoprolol Tartrate 5 mg 09/01/24 10:29 Metoprolol Tartrate Inj 5 Mg/5 Ml Vial IV PUSH 09/01/24 10:30 ONCE ONE Multi-Ingred Cream/Lotion/Oil/Oint 1 applic 08/30/24 10:20 09/01/24 09:02 Mineral Oil/White Petrolatum Ointment EACH EYE 1 applic Q12HR RHYS Administration Pantoprazole Sodium 40 mg 08/30/24 10:40 09/01/24 08:59 Pantoprazole Sodium Iv 40 Mg Vial IV PUSH 40 mg Q12HR RHYS Administration Prednisolone Acetate 1 drop 08/30/24 21:00 09/01/24 09:03 Prednisolone Acetate 1% Ophth 5 Ml RIGHT EYE 1 drop Q12HR RHYS Administration Sodium Chloride 10 ml 08/30/24 14:00 09/01/24 06:10 Central Line Flush IV PUSH 10 ml Q8HR RHYS Administration Sodium Chloride 10 ml 08/30/24 12:17 Central Line Flush IV PUSH PRN PRN with TPN bag changes Sodium Chloride 20 ml 08/30/24 12:17 Central Line Flush IV PUSH PRN PRN after blood draws Radiology Results: ITS Impressions Head CT 08/29/24 21:55 Impression: No acute intracranial hemorrhage or suspicious mass effect. Chest/Abdomen/Pelvis CT 08/29/24 21:57 IMPRESSION: Dense bilateral multifocal infiltrates, predominantly perihilar, as detailed above. No additional source is detected for patient's profound sepsis. Abdomen X-Ray 08/30/24 11:02 IMPRESSION: Bilateral pneumonia. Differential include pulmonary edema. Chest X-Ray 09/01/24 07:10 IMPRESSION: 1. No significant change in patchy airspace opacities throughout both lungs which could represent pneumonia, pulmonary edema and/or ARDS. Labs Labs: Laboratory Results - last 24 hr 08/31/24 08/31/24 08/31/24 11:41 15:49 20:36 WBC RBC Hgb Hct MCV MCH MCHC RDW Plt Count MPV Immature Gran % (Auto) Neut % (Auto) Lymph % (Auto) Craig % (Auto) Eos % (Auto) Baso % (Auto) Lymph # (Auto) Craig # (Auto) Eos # (Auto) Baso # (Auto) Abs Immat Gran (auto) Absolute Neuts (auto) Absolute Nucleated RBC Total Counted Neutrophils % (Manual) Band Neutrophils % Lymphocytes % (Manual) Monocytes % (Manual) Nucleated RBC % Abs Neuts (Manual) Abs Lymphs (Manual) Abs Monocytes (Manual) Nucleated RBCs Atypical Lymphocytes Smudge Cells Platelet Estimate Large Platelets Giant Platelets Hypochromasia Anisocytosis Macrocytosis Ovalocytes Schistocytes Puncture Site ABG pH ABG pCO2 ABG pO2 ABG PO2/FiO2 Ratio ABG HCO3 ABG O2 Saturation ABG O2 Content ABG Base Excess A-a Gradient Oxyhemoglobin Carboxyhemoglobin Methemoglobin Reduced Hemoglobin Total Hemoglobin O2 Delivery Device O2 Liters/Min Minute Volume Vent Rate Vent Mode FiO2 Tidal Volume PEEP Peak Inspir Pressure Pressure Support Sodium Potassium Chloride Carbon Dioxide Anion Gap BUN Creatinine Estim Creat Clear Calc Estimated GFR Glucose POC Capillary Glucose 106 H 101 37 L* Calcium Magnesium Total Bilirubin AST ALT Alkaline Phosphatase Total Protein Albumin 08/31/24 08/31/24 08/31/24 20:37 20:53 21:10 WBC RBC Hgb Hct MCV MCH MCHC RDW Plt Count MPV Immature Gran % (Auto) Neut % (Auto) Lymph % (Auto) Craig % (Auto) Eos % (Auto) Baso % (Auto) Lymph # (Auto) Craig # (Auto) Eos # (Auto) Baso # (Auto) Abs Immat Gran (auto) Absolute Neuts (auto) Absolute Nucleated RBC Total Counted Neutrophils % (Manual) Band Neutrophils % Lymphocytes % (Manual) Monocytes % (Manual) Nucleated RBC % Abs Neuts (Manual) Abs Lymphs (Manual) Abs Monocytes (Manual) Nucleated RBCs Atypical Lymphocytes Smudge Cells Platelet Estimate Large Platelets Giant Platelets Hypochromasia Anisocytosis Macrocytosis Ovalocytes Schistocytes Puncture Site ABG pH ABG pCO2 ABG pO2 ABG PO2/FiO2 Ratio ABG HCO3 ABG O2 Saturation ABG O2 Content ABG Base Excess A-a Gradient Oxyhemoglobin Carboxyhemoglobin Methemoglobin Reduced Hemoglobin Total Hemoglobin O2 Delivery Device O2 Liters/Min Minute Volume Vent Rate Vent Mode FiO2 Tidal Volume PEEP Peak Inspir Pressure Pressure Support Sodium Potassium Chloride Carbon Dioxide Anion Gap BUN Creatinine Estim Creat Clear Calc Estimated GFR Glucose POC Capillary Glucose 25 L* 31 L* 37 L* Calcium Magnesium Total Bilirubin AST ALT Alkaline Phosphatase Total Protein Albumin 08/31/24 08/31/24 08/31/24 21:45 21:46 22:17 WBC RBC Hgb Hct MCV MCH MCHC RDW Plt Count MPV Immature Gran % (Auto) Neut % (Auto) Lymph % (Auto) Craig % (Auto) Eos % (Auto) Baso % (Auto) Lymph # (Auto) Craig # (Auto) Eos # (Auto) Baso # (Auto) Abs Immat Gran (auto) Absolute Neuts (auto) Absolute Nucleated RBC Total Counted Neutrophils % (Manual) Band Neutrophils % Lymphocytes % (Manual) Monocytes % (Manual) Nucleated RBC % Abs Neuts (Manual) Abs Lymphs (Manual) Abs Monocytes (Manual) Nucleated RBCs Atypical Lymphocytes Smudge Cells Platelet Estimate Large Platelets Giant Platelets Hypochromasia Anisocytosis Macrocytosis Ovalocytes Schistocytes Puncture Site ABG pH ABG pCO2 ABG pO2 ABG PO2/FiO2 Ratio ABG HCO3 ABG O2 Saturation ABG O2 Content ABG Base Excess A-a Gradient Oxyhemoglobin Carboxyhemoglobin Methemoglobin Reduced Hemoglobin Total Hemoglobin O2 Delivery Device O2 Liters/Min Minute Volume Vent Rate Vent Mode FiO2 Tidal Volume PEEP Peak Inspir Pressure Pressure Support Sodium 138 Potassium 3.1 L Chloride 111 H Carbon Dioxide 17 L Anion Gap 10 BUN 26 H D Creatinine 0.81 Estim Creat Clear Calc 45 Estimated GFR > 60 Glucose 266 H POC Capillary Glucose 91 < 20 L* Calcium 8.7 Magnesium Total Bilirubin AST ALT Alkaline Phosphatase Total Protein Albumin 08/31/24 09/01/24 09/01/24 22:21 00:10 02:03 WBC RBC Hgb Hct MCV MCH MCHC RDW Plt Count MPV Immature Gran % (Auto) Neut % (Auto) Lymph % (Auto) Craig % (Auto) Eos % (Auto) Baso % (Auto) Lymph # (Auto) Craig # (Auto) Eos # (Auto) Baso # (Auto) Abs Immat Gran (auto) Absolute Neuts (auto) Absolute Nucleated RBC Total Counted Neutrophils % (Manual) Band Neutrophils % Lymphocytes % (Manual) Monocytes % (Manual) Nucleated RBC % Abs Neuts (Manual) Abs Lymphs (Manual) Abs Monocytes (Manual) Nucleated RBCs Atypical Lymphocytes Smudge Cells Platelet Estimate Large Platelets Giant Platelets Hypochromasia Anisocytosis Macrocytosis Ovalocytes Schistocytes Puncture Site ABG pH ABG pCO2 ABG pO2 ABG PO2/FiO2 Ratio ABG HCO3 ABG O2 Saturation ABG O2 Content ABG Base Excess A-a Gradient Oxyhemoglobin Carboxyhemoglobin Methemoglobin Reduced Hemoglobin Total Hemoglobin O2 Delivery Device O2 Liters/Min Minute Volume Vent Rate Vent Mode FiO2 Tidal Volume PEEP Peak Inspir Pressure Pressure Support Sodium Potassium Chloride Carbon Dioxide Anion Gap BUN Creatinine Estim Creat Clear Calc Estimated GFR Glucose POC Capillary Glucose 218 H 112 H 108 H Calcium Magnesium Total Bilirubin AST ALT Alkaline Phosphatase Total Protein Albumin 09/01/24 09/01/24 09/01/24 04:12 05:38 06:10 WBC 24.1 H RBC 2.47 L Hgb 7.5 L Hct 23.7 L MCV 96.0 MCH 30.4 MCHC 31.6 L RDW 25.0 H Plt Count 140 L D MPV 11.6 H Immature Gran % (Auto) Not Reportable Neut % (Auto) Not Reportable Lymph % (Auto) Not Reportable Craig % (Auto) Not Reportable Eos % (Auto) Not Reportable Baso % (Auto) Not Reportable Lymph # (Auto) Not Reportable Craig # (Auto) Not Reportable Eos # (Auto) Not Reportable Baso # (Auto) Not Reportable Abs Immat Gran (auto) Not Reportable Absolute Neuts (auto) Not Reportable Absolute Nucleated RBC Not Reportable Total Counted 100 Neutrophils % (Manual) 79 H Band Neutrophils % 12 H Lymphocytes % (Manual) 7.0 L Monocytes % (Manual) 2 L Nucleated RBC % Not Reportable Abs Neuts (Manual) 21.93 H Abs Lymphs (Manual) 1.68 Abs Monocytes (Manual) 0.48 Nucleated RBCs 1 Atypical Lymphocytes Present Smudge Cells Present Platelet Estimate Adequate Large Platelets Present Giant Platelets Present Hypochromasia 1+ Anisocytosis 2+ Macrocytosis 1+ Ovalocytes 1+ Schistocytes None seen Puncture Site Right radial ABG pH 7.305 L ABG pCO2 36.8 ABG pO2 125.0 H ABG PO2/FiO2 Ratio 1.25 ABG HCO3 17.9 L ABG O2 Saturation 98.2 ABG O2 Content 11.5 L ABG Base Excess -7.7 A-a Gradient 551.2 Oxyhemoglobin 97.1 Carboxyhemoglobin 0.6 Methemoglobin 0.3 Reduced Hemoglobin 2.0 Total Hemoglobin 8.2 L O2 Delivery Device Ventilator O2 Liters/Min Not Reportable Minute Volume Not Reportable Vent Rate 20 Vent Mode Cmv FiO2 100 Tidal Volume 370 PEEP 10 Peak Inspir Pressure Not Reportable Pressure Support Not Reportable Sodium 140 Potassium 3.4 Chloride 114 H Carbon Dioxide 19 L Anion Gap 7 BUN 30 H Creatinine 0.81 Estim Creat Clear Calc 45 Estimated GFR > 60 Glucose 111 H POC Capillary Glucose 98 Calcium 8.9 Magnesium 2.1 Total Bilirubin 0.2 AST 118 H ALT 56 H Alkaline Phosphatase 122 Total Protein 4.4 L Albumin 2.2 L 09/01/24 09/01/24 09/01/24 07:12 07:13 09:04 WBC RBC Hgb Hct MCV MCH MCHC RDW Plt Count MPV Immature Gran % (Auto) Neut % (Auto) Lymph % (Auto) Craig % (Auto) Eos % (Auto) Baso % (Auto) Lymph # (Auto) Craig # (Auto) Eos # (Auto) Baso # (Auto) Abs Immat Gran (auto) Absolute Neuts (auto) Absolute Nucleated RBC Total Counted Neutrophils % (Manual) Band Neutrophils % Lymphocytes % (Manual) Monocytes % (Manual) Nucleated RBC % Abs Neuts (Manual) Abs Lymphs (Manual) Abs Monocytes (Manual) Nucleated RBCs Atypical Lymphocytes Smudge Cells Platelet Estimate Large Platelets Giant Platelets Hypochromasia Anisocytosis Macrocytosis Ovalocytes Schistocytes Puncture Site ABG pH ABG pCO2 ABG pO2 ABG PO2/FiO2 Ratio ABG HCO3 ABG O2 Saturation ABG O2 Content ABG Base Excess A-a Gradient Oxyhemoglobin Carboxyhemoglobin Methemoglobin Reduced Hemoglobin Total Hemoglobin O2 Delivery Device O2 Liters/Min Minute Volume Vent Rate Vent Mode FiO2 Tidal Volume PEEP Peak Inspir Pressure Pressure Support Sodium Potassium Chloride Carbon Dioxide Anion Gap BUN Creatinine Estim Creat Clear Calc Estimated GFR Glucose POC Capillary Glucose < 20 L* 105 108 H Calcium Magnesium Total Bilirubin AST ALT Alkaline Phosphatase Total Protein Albumin Quality VTE Prophylaxis VTE prophylaxis: pharmacologic ordered
[2024-09-01] MEDS: METOPROLOL TARTRATE INJ 5 MG/5 ML VIAL IV PUSH (11:22)
[2024-09-01] MEDS: FUROSEMIDE INJ 40 MG/4 ML VIAL 20 MG IV PUSH (11:22)
[2024-09-01] MEDS: FENTANYL 2,500MCG/NS250ML(*CRX 2,500 MCG/250 ML BAG 20 MCG IV CONT (12:00)
[2024-09-01] MEDS: DEXTROSE 10% 1,000 ML 50 ML IV CONT (12:30)
[2024-09-01] MEDS: VANCOMYCIN 1,250 MG/NS 250 ML 1,250 MG/250 ML BAG 166.67 MG IVPB (13:22)
[2024-09-01] MEDS: levoFLOXacin 750 MG/D5W 150 ML 750 MG/150 ML BAG 150 MG IVPB (14:29)
[2024-09-01 16:12] LABS: Pneumococcal Antigen Urine NOT DETECTED
[2024-09-01] MEDS: PROPOFOL IV EMULSION 100 ML 9.13 MG IV CONT ×2 (17:02→17:03)
[2024-09-01 17:27] LABS: Legionella pneumophila Ag Ur. NOT DETECTED
[2024-09-01 17:48] LABS: Mycoplasma IgM Antibody Titer. 43 U/mL
[2024-09-01 18:07] LABS: Anion Gap 6 mmol/L (4-12); Blood Urea Nitrogen 38 mg/dL (7-17); Calcium 8.8 mg/dL (8.4-10.2); Carbon Dioxide 19 mmol/L (22-30); Chloride 111 mmol/L (98-107); Estimated CRCL calculation 34 ml/min; Estimated Glomerular Filt Rate 50; Glucose 311 mg/dL (65-110); Magnesium 2.0 mg/dL (1.6-2.3); Potassium 3.4 mmol/L (3.4-5.0); Sodium 136 mmol/L (137-145)
[2024-09-01] MEDS: KCL 40 MEQ/WATER 100 ML 100 ML 25 ML IVPB (19:00)
[2024-09-01] MEDS: POTASSIUM CHLORIDE 20 MEQ PACKET (FOR LIQUID) FEED TUBE (19:00)
[2024-09-01] MEDS: MIDAZOLAM 100MG/NS 100ML(*CRX) 100 MG/100 ML BAG 10 MG IV CONT (19:02)
[2024-09-01 20:39] LABS: Herpes Simplex Type 1 DNA PCR Not Detected (Not Detected); Herpes Simplex Type 2 DNA PCR Not Detected (Not Detected)
[2024-09-02] VITALS (33 sets, daily range): BP systolic 94–110; BP diastolic 55–68; PULSE 95–132; RESP 16–25; TEMP 36.1–37.6; O2SAT 93–100
[2024-09-02] MEDS: FENTANYL 2,500MCG/NS250ML(*CRX 2,500 MCG/250 ML BAG 20 MCG IV CONT ×2 (01:00→12:56)
[2024-09-02] MEDS: PROPOFOL IV EMULSION 100 ML 9.13 MG IV CONT ×2 (05:07→15:29)
[2024-09-02] MEDS: MIDAZOLAM 100MG/NS 100ML(*CRX) 100 MG/100 ML BAG 10 MG IV CONT ×2 (05:08→15:28)
[2024-09-02] MEDS: ACYCLOVIR 200 MG CAPSULE 400 MG FEED TUBE ×3 (05:09→22:39)
[2024-09-02] MEDS: METOCLOPRAMIDE HCL 10 MG/10 ML SOLN UDC FEED TUBE ×4 (05:09→23:24)
[2024-09-02] MEDS: CENTRAL LINE FLUSH 10 ML IV PUSH ×3 (05:10→22:39)
[2024-09-02 05:15] LABS: Alveolar/Arterial O2 Gradient 274.5 mmHg; Carboxyhemoglobin 0.8 % THb (0-2.0); Fractional Inspired Oxygen 55 %; HCO3 ABG 17.9 mEq/l (22.0-26.0); Methemoglobin ABG 0.1 %THb (0-1.5); Oxygen Content ABG 10.1 %vol (16.0-22.0); Oxygen Saturation ABG 94.8 % (95.0-100.0); PCO2 ABG 35.5 mmHg (35.0-45.0); PO2 ABG 78.2 mmHg (80.0-100.0); PO2 FiO2 Ratio Arterial Blood 1.42 %; Reduced Hemoglobin 4.9 %THb (0-5.0)
[2024-09-02 05:16] LABS: Arterial Blood Gas Tidal Volume 370 ml; Arterial Blood Gas Ventilator rate 20 /MIN; Modified Allen's Test Unable to perform; Site Drawn RIGHT RADIAL
[2024-09-02 05:23] LABS: Hematocrit 22.2 % (37.0-47.0); Mean Corpuscular HGB Conc 31.1 g/dl (32-36); Mean Corpuscular Hemoglobin 30.3 pg (26-34); Mean Corpuscular Volume 97.4 fl (80-100); Platelet Count Result 105 k/mm3 (150-375); Red Blood Count 2.28 M/mm3 (4.2-5.4); White Blood Count 40.6 K/mm3 (4.5-10.0)
[2024-09-02 05:27] LABS: Hemoglobin 6.9 g/dL (12.0-15.0)
[2024-09-02 05:40] LABS: Alanine Aminotransferase 40 U/L (6-35); Albumin Level 2.0 g/dL (3.5-5.1); Alkaline Phosphatase 128 U/L (38-126); Anion Gap 6 mmol/L (4-12); Aspartate Amino Transferase 84 U/L (14-36); Bilirubin,Total 0.1 mg/dL (0.2-1.3); Blood Urea Nitrogen 50 mg/dL (7-17); Calcium 9.8 mg/dL (8.4-10.2); Carbon Dioxide 19 mmol/L (22-30); Chloride 115 mmol/L (98-107); Estimated CRCL calculation 35 ml/min; Estimated Glomerular Filt Rate 51; Glucose 116 mg/dL (65-110); Magnesium 2.1 mg/dL (1.6-2.3); Potassium 4.6 mmol/L (3.4-5.0); Sodium 140 mmol/L (137-145); Total Protein 4.3 g/dL (6.3-8.2)
[2024-09-02 05:55] LABS: Anisocytosis 2+; Band Neutrophils Percent 9 % (0-6); Burr Cells 1+; Eosinophils Absolute Manual 0.40 K/mm3 (0.02-0.50); Eosinophils Percent Manual 1 % (0-4); Hypochromasia 1+; Lymphocytes Absolute Manual 3.65 K/mm3 (1.1-4.5); Lymphocytes Percent Manual 9.0 % (18-44); Macrocytosis 1+ (NORMAL); Monocytes Absolute Manual 0.40 K/mm3 (0.1-0.90); Monocytes Percent Manual 1 % (3-9); Neutrophils Absolute Manual 36.13 K/mm3 (1.3-6.7); Neutrophils Percent Manual 80 % (46-73); Ovalocytes 1+; Schistocytes None Seen; Smudge Cells PRESENT; Total Cells Counted 100
[2024-09-02] MEDS: HYDROCORTISONE SODIUM SUCCINATE 100 MG/2 ML VIAL IV PUSH (08:56)
[2024-09-02] MEDS: PANTOPRAZOLE SODIUM IV 40 MG VIAL IV PUSH ×2 (08:56→20:16)
[2024-09-02] MEDS: MINERAL OIL/WHITE PETROLATUM OINTMENT 1 APPLIC EACH EYE ×2 (08:56→20:16)
[2024-09-02] MEDS: CEFEPIME 2 GM/NS 50 ML 2 GM/50 ML BAG IVPB ×2 (08:57→20:11)
[2024-09-02] MEDS: ALBUMIN HUMAN 25% 25 GM/100 ML 100 ML IVPB ×3 (08:59→20:41)
[2024-09-02] MEDS: prednisoLONE ACETATE 1% OPHTH 5 ML 1 DROP RIGHT EYE ×2 (09:00→20:16)
--- NOTE | 2024-09-02 10:35 | P.PNINT_ITS ---
Progress Note: A&P Assessment and Plan (1) Acute respiratory failure: Code(s): J96.00 - Acute respiratory failure, unspecified whether with hypoxia or hypercapnia Status: Acute Assessment and Plan: Acute respiratory failure and sepsis secondary to bilateral pneumonia in an immunocompromised patient who is currently on methotrexate and hydroxychloroquine. ARDS is another possibility 08/29 CT Chest Dense bilateral multifocal infiltrates, predominantly perihilar, as detailed above. No additional source is detected for patient's profound sepsis 08/30 During my assessment patient was tachypneic and tachycardic and in respiratory distress although she was maintaining her oxygen saturation Option of intubation and mechanical ventilation was discussed the patient and patient was agreeable as she was in respiratory distress. Risks and benefits were explained to the patient and her family and they all agree were agreeable and verbalized understanding to proceed. Patient was transferred to ICU and electively intubated Placed on CMV with low tidal volume and PEEP of 8 and FiO2 o has been weaned down to 75 per ABG reviewed Continue broad-spectrum antibiotics in the form of vancomycin cefepime and [place] Blood and sputum culture ordered and PCR for influenza RSV and COVID was negative Urine Legionella and pneumococcal antigen Pending Mycoplasma IgM 08/31 patient underwent bronchoscopy which did not show any LR hemorrhage or tracheobronchitis. BAL samples collected and sent to the lab Continue decreased hydrocortisone dose Wean FiO2. Continue PEEP to 12 (2) Gastroesophageal reflux disease: Qualifiers: Esophagitis presence: esophagitis presence not specified Qualified Code(s): K21.9 - Gastro-esophageal reflux disease without esophagitis Code(s): K21.9 - Gastro-esophageal reflux disease without esophagitis Status: Acute Assessment and Plan: PPI q.12 hours (3) FRANK (acute kidney injury): Code(s): N17.9 - Acute kidney failure, unspecified Status: Acute Assessment and Plan: Patient presented with elevated creatinine which was likely secondary to sepsis. Creatinine improved with IV fluids Cut down on further IV fluids and patient was given IV fluids Urine output improved. Patient was given Lasix yesterday to prevent volume overload Overnight creatinine has slightly increased again Hold diuretics 25% albumin Will try to maintain map above 65 in Monitor urine output electrolytes and creatinine Lasix IV [place] catheter for accurate I&Os (4) Sepsis: Qualifiers: Sepsis acute organ dysfunction status: with acute organ dysfunction Sepsis type: sepsis due to unspecified organism Severe sepsis acute organ dysfu nction type: encephalopathy Severe sepsis shock status: without septic shock Qualified Code(s): A41.9 - Sepsis, unspecified organism; R65.20 - Severe sepsis without septic shock; G93.41 - Metabolic encephalopathy Code(s): A41.9 - Sepsis, unspecified organism Status: Acute Assessment and Plan: See above (5) Immunosuppressed status: Code(s): D89.9 - Disorder involving the immune mechanism, unspecified Status: Acute Assessment and Plan: See above (6) Rheumatoid arthritis: Code(s): M06.9 - Rheumatoid arthritis, unspecified Status: Acute Assessment and Plan: Hold methotrexate and hydroxychloroquine (7) Toxic metabolic encephalopathy: Code(s): G92.8 - Other toxic encephalopathy Status: Acute Assessment and Plan: Patient presented with altered mental status and confusion which appears to be encephalopathy ache. Patient has sepsis and was on several medication including tramadol and benzodiazepine at home Patient appears much more awake and alert this morning before intubation and is now oriented x [address] was negative TSH was normal Patient obviously now sedated and intubated. Patient has been on benzodiazepine and pain medications chronically and requiring significant amount of medications to keep her sedated (8) Pneumonia: Qualifiers: Laterality: bilateral Lung location: unspecified part of lung Pneumonia type: due to unspecified organism Qualified Code(s): J18.9 - Pneumonia, unspecified organism Code(s): J18.9 - Pneumonia, unspecified organism Status: Acute Assessment and Plan: See above (9) Urinary tract infection: Qualifiers: Hematuria presence: with hematuria Urinary tract infection type: site unspecified Qualified Code(s): N39.0 - Urinary tract infection, site not specified; R31.9 - Hematuria, unspecified Code(s): N39.0 - Urinary tract infection, site not specified Status: Acute Assessment and Plan: UA suggestive of UTI Cultures ordered On broad-spectrum antibiotics (10) Herpes labialis: Code(s): B00.1 - Herpesviral vesicular dermatitis Status: Acute Assessment and Plan: Continue acyclovir through tube (11) Hypoglycemia: Code(s): E16.2 - Hypoglycemia, unspecified Status: Acute Assessment and Plan: Patient had couple episodes of hypoglycemia early in the course. Patient is on D5 half-normal saline along with tube feeds. To consult fluid I will change flushes to D5 water and changed infusion to D10 Blood glucose is now improved and D10 has been weaned off (12) Ileus: Code(s): K56.7 - Ileus, unspecified Status: Acute Assessment and Plan: Although bowel sounds are present patient has not been tolerating tube feeds with very high residuals. Tube feeds were held yesterday for multiple hours but residuals remain high. I will attach OG tube to suction to empty the stomach and restart tube feeds at a low rate. Patient is already on Reglan. If this continues patient may need post pyloric tube feeding Plan DVT prophylaxis -heparin Stress ulcer prophylaxis -Protonix Nutrition -resume Tube Feeds later today. Continue Reglan Code Status - Full Code Total Critical Care Time - 35 minutes Due to a high probability of clinically significant, life threatening deterioration, the patient required my highest level of preparedness to intervene emergently and I personally spent this critical care time directly and personally managing the patient. This critical care time included obtaining a history; examining the patient; pulse oximetry; ordering and review of studies; arranging urgent treatment with development of a management plan; evaluation of patient's response to treatment; frequent reassessment; and discussions with other providers. It was exclusive of separately billable procedures and treating other patients and teaching time. Please see Assessment and Plan section and the rest of the note for further information on patient assessment and treatment Subjective Date/time seen: 09/02/24 Overnight events reviewed. Afebrile Continues to be on mechanical ventilation 50% FiO2 and 12 of PEEP Continues to be sedated with propofol Versed and fentanyl Sinus tachycardia on the monitor Vitals acceptable Interval history: 68-year-old with a history of rheumatoid arthritis, Crohn's, GERD admitted to ICU for pneumonia and respiratory failure requiring intubation and mechanical ventilation Review of Systems Review of Systems: ROS unobtainable: Yes unobtainable due to endotracheal tube, unobtainable due to medical condition and unobtainable due to mental status Exam Narrative: General: Pt is now sedated, intubated and on mechanical ventilation Lungs/Chest: Trachea central clear BS B/L, bibasilar crackles Cardiac: Tachycardia RRR. Normal S1 S2. No murmurs Circulation: Pedal pulses are intact and symmetrical. Abdomen: Decreased bowel sounds. . Soft. NT. ND. Extremities: Warm edema of both arms : [place] in place Neurologic: Prior to intubation patient was AO x3 and was moving all 4 extremities, PERRL now sedated and intubated Skin: 08/30 edema with breakdown of the screen which appears to be popped blisters on right labia. Patient was examined in the presence of female butcher meat was patient's nurse. She also has several scabbed wounds on her both legs which are in various healing stage but no open or infected wound. Objective Data Vital Signs Vital Signs: Vital Signs - 24 hr 09/01/24 11:01 09/01/24 11:22 09/01/24 11:33 Temperature Pulse Rate 134 H 136 H Respiratory Rate Blood Pressure 93/58 L Pulse Oximetry 95 Oxygen Delivery Mechanical Ventilation Fraction of Inspired Oxygen 75 09/01/24 11:54 09/01/24 12:00 09/01/24 12:00 Temperature 39.0 C H Pulse Rate 120 H 121 H 121 H Respiratory Rate 14 21 H 21 H Blood Pressure 89/61 L Pulse Oximetry 96 Oxygen Delivery Fraction of Inspired Oxygen 09/01/24 12:00 09/01/24 12:00 09/01/24 12:00 Temperature Pulse Rate 121 H 121 H Respiratory Rate 23 H 22 H Blood Pressure Pulse Oximetry Oxygen Delivery Fraction of Inspired Oxygen 75 09/01/24 12:00 09/01/24 12:00 09/01/24 12:43 Temperature 37.4 C Pulse Rate 119 H 120 H Respiratory Rate Blood Pressure 94/59 L Pulse Oximetry 96 Oxygen Delivery Mechanical Ventilation Fraction of Inspired Oxygen 75 09/01/24 13:45 09/01/24 14:00 09/01/24 14:00 Temperature Pulse Rate 117 H 117 H Respiratory Rate 21 H Blood Pressure Pulse Oximetry Oxygen Delivery Fraction of Inspired Oxygen 65 09/01/24 14:00 09/01/24 14:00 09/01/24 14:00 Temperature Pulse Rate 117 H 117 H 118 H Respiratory Rate 21 H 21 H 21 H Blood Pressure 92/54 L Pulse Oximetry 96 Oxygen Delivery Fraction of Inspired Oxygen 09/01/24 14:02 09/01/24 16:00 09/01/24 16:00 Temperature 37.5 C Pulse Rate 117 H 113 H Respiratory Rate 14 Blood Pressure 92/56 L Pulse Oximetry 94 96 96 Oxygen Delivery Mechanical Ventilation Mechanical Ventilation Fraction of Inspired Oxygen 65 65 09/01/24 16:00 09/01/24 16:00 09/01/24 16:00 Temperature Pulse Rate 112 H 112 H Respiratory Rate 21 H 21 H Blood Pressure Pulse Oximetry Oxygen Delivery Fraction of Inspired Oxygen 65 09/01/24 16:00 09/01/24 16:00 09/01/24 16:30 Temperature Pulse Rate 112 H 112 H Respiratory Rate 21 H Blood Pressure Pulse Oximetry Oxygen Delivery Fraction of Inspired Oxygen 60 09/01/24 17:02 09/01/24 17:02 09/01/24 17:03 Temperature Pulse Rate 113 H 113 H 113 H Respiratory Rate 20 20 20 Blood Pressure Pulse Oximetry Oxygen Delivery Fraction of Inspired Oxygen 09/01/24 17:03 09/01/24 17:20 09/01/24 18:00 Temperature Pulse Rate 113 H 111 H 112 H Respiratory Rate 20 20 Blood Pressure 85/51 L Pulse Oximetry 95 95 Oxygen Delivery Mechanical Ventilation Fraction of Inspired Oxygen 60 09/01/24 18:00 09/01/24 18:00 09/01/24 18:00 Temperature Pulse Rate 111 H 111 H 111 H Respiratory Rate 20 20 Blood Pressure Pulse Oximetry Oxygen Delivery Fraction of Inspired Oxygen 09/01/24 18:00 09/01/24 18:55 09/01/24 19:02 Temperature Pulse Rate 111 H 114 H 113 H Respiratory Rate 20 20 20 Blood Pressure Pulse Oximetry Oxygen Delivery Fraction of Inspired Oxygen 09/01/24 19:02 09/01/24 19:13 09/01/24 20:00 Temperature Pulse Rate 113 H 110 H Respiratory Rate 20 Blood Pressure Pulse Oximetry Oxygen Delivery Fraction of Inspired Oxygen 55 09/01/24 20:00 09/01/24 20:00 09/01/24 20:00 Temperature Pulse Rate 110 H 110 H 110 H Respiratory Rate 20 20 20 Blood Pressure Pulse Oximetry Oxygen Delivery Fraction of Inspired Oxygen 09/01/24 20:00 09/01/24 20:00 09/01/24 20:00 Temperature Pulse Rate 110 H Respiratory Rate 22 H Blood Pressure 97/60 L Pulse Oximetry 94 93 Oxygen Delivery Mechanical Ventilation Fraction of Inspired Oxygen 55 55 09/01/24 20:05 09/01/24 20:30 09/01/24 22:00 Temperature 37.3 C Pulse Rate 109 H 109 H Respiratory Rate Blood Pressure Pulse Oximetry 95 Oxygen Delivery Mechanical Ventilation Fraction of Inspired Oxygen 55 09/01/24 22:00 09/01/24 22:00 09/01/24 22:00 Temperature Pulse Rate 110 H 110 H 110 H Respiratory Rate 20 20 20 Blood Pressure Pulse Oximetry Oxygen Delivery Fraction of Inspired Oxygen 09/01/24 22:00 09/01/24 22:57 09/01/24 22:58 Temperature Pulse Rate 109 H 111 H Respiratory Rate 24 H Blood Pressure 92/64 L Pulse Oximetry 93 98 Oxygen Delivery Mechanical Ventilation Fraction of Inspired Oxygen 50 55 09/01/24 23:41 09/01/24 23:42 09/02/24 00:00 Temperature 36.1 C L Pulse Rate 121 H Respiratory Rate 22 H Blood Pressure 101/66 Pulse Oximetry 95 94 Oxygen Delivery Mechanical Ventilation Fraction of Inspired Oxygen 50 50 09/02/24 00:00 09/02/24 00:00 09/02/24 00:00 Temperature Pulse Rate 121 H 121 H 121 H Respiratory Rate 22 H 22 H Blood Pressure Pulse Oximetry Oxygen Delivery Fraction of Inspired Oxygen 09/02/24 00:00 09/02/24 01:00 09/02/24 01:00 Temperature Pulse Rate 121 H 126 H 126 H Respiratory Rate 22 H 24 H 24 H Blood Pressure Pulse Oximetry Oxygen Delivery Fraction of Inspired Oxygen 09/02/24 02:00 09/02/24 02:00 09/02/24 02:00 Temperature Pulse Rate 131 H 131 H 131 H Respiratory Rate 21 H 21 H Blood Pressure Pulse Oximetry Oxygen Delivery Fraction of Inspired Oxygen 09/02/24 02:00 09/02/24 02:02 09/02/24 02:09 Temperature Pulse Rate 131 H 131 H 131 H Respiratory Rate 25 H 24 H Blood Pressure 96/68 L Pulse Oximetry 93 96 Oxygen Delivery Mechanical Ventilation Fraction of Inspired Oxygen 50 09/02/24 02:21 09/02/24 04:00 09/02/24 04:00 Temperature Pulse Rate 129 H Respiratory Rate Blood Pressure Pulse Oximetry Oxygen Delivery Fraction of Inspired Oxygen 55 55 09/02/24 04:00 09/02/24 04:00 09/02/24 04:00 Temperature 36.1 C L Pulse Rate 131 H 131 H 131 H Respiratory Rate 20 20 20 Blood Pressure 95/59 L Pulse Oximetry 98 Oxygen Delivery Fraction of Inspired Oxygen 09/02/24 04:00 09/02/24 04:00 09/02/24 05:01 Temperature Pulse Rate 131 H 132 H Respiratory Rate 20 Blood Pressure Pulse Oximetry 98 95 Oxygen Delivery Mechanical Ventilation Mechanical Ventilation Fraction of Inspired Oxygen 55 55 09/02/24 05:07 09/02/24 05:07 09/02/24 05:08 Temperature Pulse Rate 131 H 131 H 131 H Respiratory Rate 20 20 20 Blood Pressure Pulse Oximetry Oxygen Delivery Fraction of Inspired Oxygen 09/02/24 05:08 09/02/24 06:00 09/02/24 06:00 Temperature Pulse Rate 131 H 132 H 132 H Respiratory Rate 20 16 Blood Pressure 95/61 L Pulse Oximetry 99 Oxygen Delivery Fraction of Inspired Oxygen 09/02/24 06:00 09/02/24 06:00 09/02/24 06:00 Temperature Pulse Rate 132 H 132 H 132 H Respiratory Rate 20 20 20 Blood Pressure Pulse Oximetry Oxygen Delivery Fraction of Inspired Oxygen 09/02/24 06:19 09/02/24 07:50 09/02/24 08:00 Temperature 37.6 C H Pulse Rate 126 H 122 H Respiratory Rate 20 Blood Pressure 97/61 L Pulse Oximetry 95 99 Oxygen Delivery Mechanical Ventilation Fraction of Inspired Oxygen 50 50 09/02/24 08:00 09/02/24 08:00 09/02/24 08:00 Temperature Pulse Rate 128 H 128 H 128 H Respiratory Rate 21 H 21 H 21 H Blood Pressure Pulse Oximetry Oxygen Delivery Fraction of Inspired Oxygen 09/02/24 08:00 09/02/24 08:00 09/02/24 08:00 Temperature Pulse Rate 126 H Respiratory Rate Blood Pressure Pulse Oximetry 98 Oxygen Delivery Mechanical Ventilation Fraction of Inspired Oxygen 50 50 09/02/24 09:14 09/02/24 09:30 09/02/24 10:00 Temperature 36.8 C 36.8 C Pulse Rate 124 H 123 H 121 H Respiratory Rate 17 22 H Blood Pressure 103/62 105/57 L Pulse Oximetry 98 98 Oxygen Delivery Fraction of Inspired Oxygen 09/02/24 10:00 09/02/24 10:00 09/02/24 10:00 Temperature Pulse Rate 121 H 121 H 121 H Respiratory Rate 22 H 22 H 22 H Blood Pressure 110/58 L Pulse Oximetry 99 Oxygen Delivery Fraction of Inspired Oxygen 09/02/24 10:00 09/02/24 10:30 Temperature 36.4 C Pulse Rate 121 H 120 H Respiratory Rate 22 H 21 H Blood Pressure 104/66 Pulse Oximetry 99 Oxygen Delivery Fraction of Inspired Oxygen Intake/Output Intake/Output: Intake & Output 08/30/24 08/31/24 09/01/24 09/02/24 23:59 23:59 23:59 23:59 Intake Total 3105.4 2409.2 3237.6 791.1 Output Total 2900 650 525 350 Balance 205.4 1759.2 2712.6 441.1 Meds/Results Medications: Active Medications Generic Name Dose Route Start Last Admin Trade Name Freq PRN Reason Stop Dose Admin Acetaminophen 650 mg 08/29/24 18:17 Acetaminophen 325 Mg Tablet PO Q4H PRN Mild Pain (1-3) or Fever Acetaminophen 650 mg 08/30/24 00:43 08/30/24 06:56 Acetaminophen 650 Mg Suppository RECTAL 650 mg Q6H PRN Administration Mild Pain (1-3) or Fever Acyclovir 400 mg 08/30/24 14:00 09/02/24 05:09 Acyclovir 200 Mg Capsule FEED TUBE 09/09/24 06:01 400 mg Q8HR RHYS Administration Dextrose 12.5 gm 08/29/24 20:42 08/31/24 20:55 Dextrose 50% 25 Gm/50 Ml Syringe IV PUSH 12.5 gm PRN PRN Administration Hypoglycemia Protocol Glucagon 1 mg 08/29/24 20:42 Glucagon For Inj 1 Mg Vial IM PRN PRN Hypoglycemia Protocol Glucose 15 gm 08/29/24 20:42 Glucose Oral Gel 15 Gm Of Glucse In 37.5 Gm Tube PO PRN PRN Hypoglycemia Protocol Heparin Sodium (Porcine) 5,000 units 08/30/24 09:00 09/02/24 09:01 Heparin Sodium 5,000 Units/Ml Vial SUB-Q 5,000 units Q12HR HRYS Administration Hydrocortisone Sodium Succinate 100 mg 09/01/24 09:00 09/02/24 08:56 Hydrocortisone Sodium Succinate 100 Mg/2 Ml Vial IV PUSH 100 mg QAM RHYS Administration Dextrose 1,000 mls @ 100 mls/hr 08/29/24 20:42 Dextrose 5% 1,000 Ml IVPB PRN PRN Hypoglycemia Protocol Cefepime HCl 2 gm in 50 mls @ 100 mls/hr 08/30/24 10:00 09/02/24 08:57 Maxipime 2 Gm/Ns 50 Ml IVPB 100 mls/hr Q12HR RHYS Administration Fentanyl Citrate 2,500 mcg in 250 mls @ 20 mls/hr 08/30/24 10:20 09/02/24 10:00 Fentanyl 2,500 Mcg/Ns 250 Ml IV CONT 200 mcg/hr .[id number] RHYS 20 mls/hr Titration Protocol 200 MCG/HR Midazolam HCl 100 mg in 100 mls @ 10 mls/hr 08/30/24 10:20 09/02/24 10:00 Versed 100 Mg/Ns 100 Ml IV CONT 10 mg/hr .Q10H RHYS 10 mls/hr Titration Protocol 10 MG/HR Levofloxacin/Dextrose 750 mg in 150 mls @ 100 mls/hr 08/30/24 14:00 09/01/24 14:29 Levaquin 750 Mg/D5w 150 Ml IVPB 150 mls/hr Q24H RHYS Administration Propofol 100 mls @ 9.126 mls/hr 08/31/24 08:30 09/02/24 10:00 Diprivan IV CONT 30 mcg/kg/min .[id number] RHYS 9.13 mls/hr Titration Protocol 30 MCG/KG/MIN Sodium Chloride 250 mls @ 30 mls/hr 09/02/24 06:34 Normal Saline Iv IV CONT 09/02/24 14:53 .Q8H20M STA Albumin Human 100 mls @ 60 mls/hr 09/02/24 08:00 09/02/24 08:59 Albutein IVPB 09/03/24 03:39 60 mls/hr Q6H RHYS Administration Insulin Aspart 3 - 6 units 08/31/24 16:39 09/02/24 08:57 Insulin Aspart (*Bkc) 100 Units/Ml SUB-Q Not Given Q4HR RHYS Protocol Metoclopramide HCl 10 mg 09/01/24 08:00 09/02/24 05:09 Metoclopramide Hcl 10 Mg/10 Ml Soln Udc FEED TUBE 10 mg Q6HR RHYS Administration Multi-Ingred Cream/Lotion/Oil/Oint 1 applic 08/30/24 10:20 09/02/24 08:56 Mineral Oil/White Petrolatum Ointment EACH EYE 1 applic Q12HR RHYS Administration Pantoprazole Sodium 40 mg 08/30/24 10:40 09/02/24 08:56 Pantoprazole Sodium Iv 40 Mg Vial IV PUSH 40 mg Q12HR RHYS Administration Prednisolone Acetate 1 drop 08/30/24 21:00 09/02/24 09:00 Prednisolone Acetate 1% Ophth 5 Ml RIGHT EYE 1 drop Q12HR RHYS Administration Sodium Chloride 10 ml 08/30/24 14:00 09/02/24 05:10 Central Line Flush IV PUSH 10 ml Q8HR RHYS Administration Sodium Chloride 10 ml 08/30/24 12:17 Central Line Flush IV PUSH PRN PRN with TPN bag changes Sodium Chloride 20 ml 08/30/24 12:17 Central Line Flush IV PUSH PRN PRN after blood draws Radiology Results: ITS Impressions Head CT 08/29/24 21:55 Impression: No acute intracranial hemorrhage or suspicious mass effect. Chest/Abdomen/Pelvis CT 08/29/24 21:57 IMPRESSION: Dense bilateral multifocal infiltrates, predominantly perihilar, as detailed above. No additional source is detected for patient's profound sepsis. Abdomen X-Ray 08/30/24 11:02 IMPRESSION: Bilateral pneumonia. Differential include pulmonary edema. Chest X-Ray 09/02/24 06:30 Impression: Stable diffuse bilateral pulmonary disease. Correlate for pulmonary edema, pneumonia, ARDS. Stable support tubes. Labs Labs: Laboratory Results - last 24 hr 08/29/24 08/29/24 08/31/24 21:54 23:12 08:39 WBC RBC Hgb Hct MCV MCH MCHC RDW Plt Count MPV Immature Gran % (Auto) Neut % (Auto) Lymph % (Auto) [place] % (Auto) Eos % (Auto) Baso % (Auto) Lymph # (Auto) [place] # (Auto) Eos # (Auto) Baso # (Auto) Abs Immat Gran (auto) Absolute Neuts (auto) Absolute Nucleated RBC Total Counted Neutrophils % (Manual) Band Neutrophils % Lymphocytes % (Manual) Monocytes % (Manual) Eosinophils % (Manual) Nucleated RBC % Abs Neuts (Manual) Abs Lymphs (Manual) Abs Monocytes (Manual) Absolute Eos (Manual) Smudge Cells Platelet Estimate Hypochromasia Anisocytosis Macrocytosis Ovalocytes Mary Cells Schistocytes Puncture Site ABG pH ABG pCO2 ABG pO2 ABG PO2/FiO2 Ratio ABG HCO3 ABG O2 Saturation ABG O2 Content ABG Base Excess A-a Gradient Oxyhemoglobin Carboxyhemoglobin Methemoglobin Reduced Hemoglobin Total Hemoglobin O2 Delivery Device O2 Liters/Min Minute Volume Vent Rate Vent Mode FiO2 Tidal Volume PEEP Peak Inspir Pressure Pressure Support Sodium Potassium Chloride Carbon Dioxide Anion Gap BUN Creatinine Estim Creat Clear Calc Estimated GFR Glucose POC Capillary Glucose Calcium Magnesium Total Bilirubin AST ALT Alkaline Phosphatase Total Protein Albumin Vancomycin Trough HSV I DNA PCR Not detected HSV II DNA PCR Not detected HSV (PCR) Source Bal right middl Ur L.pneumophila Ag Not detected Mycoplasma pneumon IgM 43 Urine Pneumococcal Ag Not detected Blood Type Antibody Screen Crossmatch 09/01/24 09/01/24 09/01/24 10:34 11:33 12:34 WBC RBC Hgb Hct MCV MCH MCHC RDW Plt Count MPV Immature Gran % (Auto) Neut % (Auto) Lymph % (Auto) [place] % (Auto) Eos % (Auto) Baso % (Auto) Lymph # (Auto) [place] # (Auto) Eos # (Auto) Baso # (Auto) Abs Immat Gran (auto) Absolute Neuts (auto) Absolute Nucleated RBC Total Counted Neutrophils % (Manual) Band Neutrophils % Lymphocytes % (Manual) Monocytes % (Manual) Eosinophils % (Manual) Nucleated RBC % Abs Neuts (Manual) Abs Lymphs (Manual) Abs Monocytes (Manual) Absolute Eos (Manual) Smudge Cells Platelet Estimate Hypochromasia Anisocytosis Macrocytosis Ovalocytes [place] Cells Schistocytes Puncture Site ABG pH ABG pCO2 ABG pO2 ABG PO2/FiO2 Ratio ABG HCO3 ABG O2 Saturation ABG O2 Content ABG Base Excess A-a Gradient Oxyhemoglobin Carboxyhemoglobin Methemoglobin Reduced Hemoglobin Total Hemoglobin O2 Delivery Device O2 Liters/Min Minute Volume Vent Rate Vent Mode FiO2 Tidal Volume PEEP Peak Inspir Pressure Pressure Support Sodium Potassium Chloride Carbon Dioxide Anion Gap BUN Creatinine Estim Creat Clear Calc Estimated GFR Glucose POC Capillary Glucose 98 113 H Calcium Magnesium Total Bilirubin AST ALT Alkaline Phosphatase Total Protein Albumin Vancomycin Trough 9.7 L HSV I DNA PCR HSV II DNA PCR HSV (PCR) Source Ur L.pneumophila Ag Mycoplasma pneumon IgM Urine Pneumococcal Ag Blood Type Antibody Screen Crossmatch 09/01/24 09/01/24 09/01/24 14:28 15:00 17:46 WBC RBC Hgb Hct MCV MCH MCHC RDW Plt Count MPV Immature Gran % (Auto) Neut % (Auto) Lymph % (Auto) [place] % (Auto) Eos % (Auto) Baso % (Auto) Lymph # (Auto) [place] # (Auto) Eos # (Auto) Baso # (Auto) Abs Immat Gran (auto) Absolute Neuts (auto) Absolute Nucleated RBC Total Counted Neutrophils % (Manual) Band Neutrophils % Lymphocytes % (Manual) Monocytes % (Manual) Eosinophils % (Manual) Nucleated RBC % Abs Neuts (Manual) Abs Lymphs (Manual) Abs Monocytes (Manual) Absolute Eos (Manual) Smudge Cells Platelet Estimate Hypochromasia Anisocytosis Macrocytosis Ovalocytes [place] Cells Schistocytes Puncture Site ABG pH ABG pCO2 ABG pO2 ABG PO2/FiO2 Ratio ABG HCO3 ABG O2 Saturation ABG O2 Content ABG Base Excess A-a Gradient Oxyhemoglobin Carboxyhemoglobin Methemoglobin Reduced Hemoglobin Total Hemoglobin O2 Delivery Device O2 Liters/Min Minute Volume Vent Rate Vent Mode FiO2 Tidal Volume PEEP Peak Inspir Pressure Pressure Support Sodium 136 L Potassium 3.4 Chloride 111 H Carbon Dioxide 19 L Anion Gap 6 BUN 38 H Creatinine 1.10 H Estim Creat Clear Calc 34 Estimated GFR 50 L Glucose 311 H POC Capillary Glucose 129 H 133 H Calcium 8.8 Magnesium 2.0 Total Bilirubin AST ALT Alkaline Phosphatase Total Protein Albumin Vancomycin Trough HSV I DNA PCR HSV II DNA PCR HSV (PCR) Source Ur L.pneumophila Ag Mycoplasma pneumon IgM Urine Pneumococcal Ag Blood Type Antibody Screen Crossmatch 09/01/24 09/01/24 09/01/24 18:10 19:51 22:01 WBC RBC Hgb Hct MCV MCH MCHC RDW Plt Count MPV Immature Gran % (Auto) Neut % (Auto) Lymph % (Auto) [place] % (Auto) Eos % (Auto) Baso % (Auto) Lymph # (Auto) [place] # (Auto) Eos # (Auto) Baso # (Auto) Abs Immat Gran (auto) Absolute Neuts (auto) Absolute Nucleated RBC Total Counted Neutrophils % (Manual) Band Neutrophils % Lymphocytes % (Manual) Monocytes % (Manual) Eosinophils % (Manual) Nucleated RBC % Abs Neuts (Manual) Abs Lymphs (Manual) Abs Monocytes (Manual) Absolute Eos (Manual) Smudge Cells Platelet Estimate Hypochromasia Anisocytosis Macrocytosis Ovalocytes [place] Cells Schistocytes Puncture Site ABG pH ABG pCO2 ABG pO2 ABG PO2/FiO2 Ratio ABG HCO3 ABG O2 Saturation ABG O2 Content ABG Base Excess A-a Gradient Oxyhemoglobin Carboxyhemoglobin Methemoglobin Reduced Hemoglobin Total Hemoglobin O2 Delivery Device O2 Liters/Min Minute Volume Vent Rate Vent Mode FiO2 Tidal Volume PEEP Peak Inspir Pressure Pressure Support Sodium Potassium Chloride Carbon Dioxide Anion Gap BUN Creatinine Estim Creat Clear Calc Estimated GFR Glucose POC Capillary Glucose 166 H 131 H 126 H Calcium Magnesium Total Bilirubin AST ALT Alkaline Phosphatase Total Protein Albumin Vancomycin Trough HSV I DNA PCR HSV II DNA PCR HSV (PCR) Source Ur L.pneumophila Ag Mycoplasma pneumon IgM Urine Pneumococcal Ag Blood Type Antibody Screen Crossmatch 09/01/24 09/02/24 09/02/24 23:17 02:06 04:58 WBC RBC Hgb Hct MCV MCH MCHC RDW Plt Count MPV Immature Gran % (Auto) Neut % (Auto) Lymph % (Auto) [place] % (Auto) Eos % (Auto) Baso % (Auto) Lymph # (Auto) [place] # (Auto) Eos # (Auto) Baso # (Auto) Abs Immat Gran (auto) Absolute Neuts (auto) Absolute Nucleated RBC Total Counted Neutrophils % (Manual) Band Neutrophils % Lymphocytes % (Manual) Monocytes % (Manual) Eosinophils % (Manual) Nucleated RBC % Abs Neuts (Manual) Abs Lymphs (Manual) Abs Monocytes (Manual) Absolute Eos (Manual) Smudge Cells Platelet Estimate Hypochromasia Anisocytosis Macrocytosis Ovalocytes [place] Cells Schistocytes Puncture Site ABG pH ABG pCO2 ABG pO2 ABG PO2/FiO2 Ratio ABG HCO3 ABG O2 Saturation ABG O2 Content ABG Base Excess A-a Gradient Oxyhemoglobin Carboxyhemoglobin Methemoglobin Reduced Hemoglobin Total Hemoglobin O2 Delivery Device O2 Liters/Min Minute Volume Vent Rate Vent Mode FiO2 Tidal Volume PEEP Peak Inspir Pressure Pressure Support Sodium Potassium Chloride Carbon Dioxide Anion Gap BUN Creatinine Estim Creat Clear Calc Estimated GFR Glucose POC Capillary Glucose 119 H 131 H 117 H Calcium Magnesium Total Bilirubin AST ALT Alkaline Phosphatase Total Protein Albumin Vancomycin Trough HSV I DNA PCR HSV II DNA PCR HSV (PCR) Source Ur L.pneumophila Ag Mycoplasma pneumon IgM Urine Pneumococcal Ag Blood Type Antibody Screen Crossmatch 09/02/24 09/02/24 09/02/24 05:00 06:47 08:00 WBC 40.6 H RBC 2.28 L Hgb 6.9 L* Hct 22.2 L MCV 97.4 MCH 30.3 MCHC 31.1 L RDW 26.3 H Plt Count 105 L MPV 12.2 H Immature Gran % (Auto) Not Reportable Neut % (Auto) Not Reportable Lymph % (Auto) Not Reportable [place] % (Auto) Not Reportable Eos % (Auto) Not Reportable Baso % (Auto) Not Reportable Lymph # (Auto) Not Reportable [place] # (Auto) Not Reportable Eos # (Auto) Not Reportable Baso # (Auto) Not Reportable Abs Immat Gran (auto) Not Reportable Absolute Neuts (auto) Not Reportable Absolute Nucleated RBC Not Reportable Total Counted 100 Neutrophils % (Manual) 80 H Band Neutrophils % 9 H Lymphocytes % (Manual) 9.0 L Monocytes % (Manual) 1 L Eosinophils % (Manual) 1 Nucleated RBC % Not Reportable Abs Neuts (Manual) 36.13 H Abs Lymphs (Manual) 3.65 Abs Monocytes (Manual) 0.40 Absolute Eos (Manual) 0.40 Smudge Cells Present Platelet Estimate Decreased Hypochromasia 1+ Anisocytosis 2+ Macrocytosis 1+ Ovalocytes 1+ [place] Cells 1+ Schistocytes None seen Puncture Site Right radial ABG pH 7.320 L ABG pCO2 35.5 ABG pO2 78.2 L ABG PO2/FiO2 Ratio 1.42 ABG HCO3 17.9 L ABG O2 Saturation 94.8 L ABG O2 Content 10.1 L ABG Base Excess -7.5 A-a Gradient 274.5 Oxyhemoglobin 94.2 Carboxyhemoglobin 0.8 Methemoglobin 0.1 Reduced Hemoglobin 4.9 Total Hemoglobin 7.5 L* O2 Delivery Device Ventilator O2 Liters/Min Not Reportable Minute Volume Not Reportable Vent Rate 20 Vent Mode Cmv FiO2 55 Tidal Volume 370 PEEP 12 Peak Inspir Pressure Not Reportable Pressure Support Not Reportable Sodium 140 Potassium 4.6 Chloride 115 H Carbon Dioxide 19 L Anion Gap 6 BUN 50 H D Creatinine 1.07 H Estim Creat Clear Calc 35 Estimated GFR 51 L Glucose 116 H POC Capillary Glucose 106 H Calcium 9.8 Magnesium 2.1 Total Bilirubin 0.1 L AST 84 H ALT 40 H Alkaline Phosphatase 128 H Total Protein 4.3 L Albumin 2.0 L Vancomycin Trough HSV I DNA PCR HSV II DNA PCR HSV (PCR) Source Ur L.pneumophila Ag Mycoplasma pneumon IgM Urine Pneumococcal Ag Blood Type O Positive Antibody Screen Negative Crossmatch See Detail 09/02/24 09:58 WBC RBC Hgb Hct MCV MCH MCHC RDW Plt Count MPV Immature Gran % (Auto) Neut % (Auto) Lymph % (Auto) [place] % (Auto) Eos % (Auto) Baso % (Auto) Lymph # (Auto) [place] # (Auto) Eos # (Auto) Baso # (Auto) Abs Immat Gran (auto) Absolute Neuts (auto) Absolute Nucleated RBC Total Counted Neutrophils % (Manual) Band Neutrophils % Lymphocytes % (Manual) Monocytes % (Manual) Eosinophils % (Manual) Nucleated RBC % Abs Neuts (Manual) Abs Lymphs (Manual) Abs Monocytes (Manual) Absolute Eos (Manual) Smudge Cells Platelet Estimate Hypochromasia Anisocytosis Macrocytosis Ovalocytes [place] Cells Schistocytes Puncture Site ABG pH ABG pCO2 ABG pO2 ABG PO2/FiO2 Ratio ABG HCO3 ABG O2 Saturation ABG O2 Content ABG Base Excess A-a Gradient Oxyhemoglobin Carboxyhemoglobin Methemoglobin Reduced Hemoglobin Total Hemoglobin O2 Delivery Device O2 Liters/Min Minute Volume Vent Rate Vent Mode FiO2 Tidal Volume PEEP Peak Inspir Pressure Pressure Support Sodium Potassium Chloride Carbon Dioxide Anion Gap BUN Creatinine Estim Creat Clear Calc Estimated GFR Glucose POC Capillary Glucose 97 Calcium Magnesium Total Bilirubin AST ALT Alkaline Phosphatase Total Protein Albumin Vancomycin Trough HSV I DNA PCR HSV II DNA PCR HSV (PCR) Source Ur L.pneumophila Ag Mycoplasma pneumon IgM Urine Pneumococcal Ag Blood Type Antibody Screen Crossmatch Quality VTE Prophylaxis VTE prophylaxis: pharmacologic ordered
[2024-09-02] MEDS: levoFLOXacin 750 MG/D5W 150 ML 750 MG/150 ML BAG 150 MG IVPB (14:48)
--- NOTE | 2024-09-02 15:41 | PM.IMPN ---
Progress Note: A&P Assessment and Plan (1) Acute respiratory failure: Code(s): J96.00 - Acute respiratory failure, unspecified whether with hypoxia or hypercapnia Status: Acute Assessment and Plan: Acute respiratory failure and sepsis secondary to bilateral pneumonia in an immunocompromised patient who is currently on methotrexate and hydroxychloroquine. ARDS is another possibility 08/29 CT Chest Dense bilateral multifocal infiltrates, predominantly perihilar, as detailed above. No additional source is detected for patient's profound sepsis 08/30 During my assessment patient was tachypneic and tachycardic and in respiratory distress although she was maintaining her oxygen saturation Option of intubation and mechanical ventilation was discussed the patient and patient was agreeable as she was in respiratory distress. Risks and benefits were explained to the patient and her family and they all agree were agreeable and verbalized understanding to proceed. Patient was transferred to ICU and electively intubated Placed on CMV with low tidal volume and PEEP of 8 and FiO2 o has been weaned down to 75 per ABG reviewed Continue broad-spectrum antibiotics in the form of vancomycin cefepime and Zapata Blood and sputum culture ordered and PCR for influenza RSV and COVID was negative Urine Legionella and pneumococcal antigen Pending Mycoplasma IgM 08/31 patient underwent bronchoscopy which did not show any LR hemorrhage or tracheobronchitis. BAL samples collected and sent to the lab Continue decreased hydrocortisone dose Wean FiO2. Continue PEEP to 12 (2) Gastroesophageal reflux disease: Qualifiers: Esophagitis presence: esophagitis presence not specified Qualified Code(s): K21.9 - Gastro-esophageal reflux disease without esophagitis Code(s): K21.9 - Gastro-esophageal reflux disease without esophagitis Status: Acute Assessment and Plan: PPI q.12 hours (3) FRANK (acute kidney injury): Code(s): N17.9 - Acute kidney failure, unspecified Status: Acute Assessment and Plan: Patient presented with elevated creatinine which was likely secondary to sepsis. Creatinine improved with IV fluids Cut down on further IV fluids and patient was given IV fluids Urine output improved. Patient was given Lasix yesterday to prevent volume overload Overnight creatinine has slightly increased again Hold diuretics 25% albumin Will try to maintain map above 65 in Monitor urine output electrolytes and creatinine Lasix IV [place] catheter for accurate I&Os (4) Sepsis: Qualifiers: Sepsis acute organ dysfunction status: with acute organ dysfunction Sepsis type: sepsis due to unspecified organism Severe sepsis acute organ dysfunction type: encephalopathy Severe sepsis shock status: without septic shock Qualified Code(s): A41.9 - Sepsis, unspecified organism; R65.20 - Severe sepsis without septic shock; G93.41 - Metabolic encephalopathy Code(s): A41.9 - Sepsis, unspecified organism Status: Acute Assessment and Plan: See above (5) Immunosuppressed status: Code(s): D89.9 - Disorder involving the immune mechanism, unspecified Status: Acute Assessment and Plan: See above (6) Rheumatoid arthritis: Code(s): M06.9 - Rheumatoid arthritis, unspecified Status: Acute Assessment and Plan: Hold methotrexate and hydroxychloroquine (7) Toxic metabolic encephalopathy: Code(s): G92.8 - Other toxic encephalopathy Status: Acute Assessment and Plan: Patient presented with altered mental status and confusion which appears to be encephalopathy ache. Patient has sepsis and was on several medication including tramadol and benzodiazepine at home Patient appears much more awake and alert this morning before intubation and is now oriented x [address] was negative TSH was normal Patient obviously now sedated and intubated. Patient has been on benzodiazepine and pain medications chronically and requiring significant amount of medications to keep her sedated (8) Pneumonia: Qualifiers: Laterality: bilateral Lung location: unspecified part of lung Pneumonia type: due to unspecified organism Qualified Code(s): J18.9 - Pneumonia, unspecified organism Code(s): J18.9 - Pneumonia, unspecified organism Status: Acute Assessment and Plan: See above (9) Urinary tract infection: Qualifiers: Hematuria presence: with hematuria Urinary tract infection type: site unspecified Qualified Code(s): N39.0 - Urinary tract infection, site not specified; R31.9 - Hematuria, unspecified Code(s): N39.0 - Urinary tract infection, site not specified Status: Acute Assessment and Plan: UA suggestive of UTI Cultures ordered On broad-spectrum antibiotics (10) Herpes labialis: Code(s): B00.1 - Herpesviral vesicular dermatitis Status: Acute Assessment and Plan: Continue acyclovir through tube (11) Hypoglycemia: Code(s): E16.2 - Hypoglycemia, unspecified Status: Acute Assessment and Plan: Patient had couple episodes of hypoglycemia early in the course. Patient is on D5 half-normal saline along with tube feeds. To consult fluid I will change flushes to D5 water and changed infusion to D10 Blood glucose is now improved and D10 has been weaned off (12) Ileus: Code(s): K56.7 - Ileus, unspecified Status: Acute Assessment and Plan: Although bowel sounds are present patient has not been tolerating tube feeds with very high residuals. Tube feeds were held yesterday for multiple hours but residuals remain high. I will attach OG tube to suction to empty the stomach and restart tube feeds at a low rate. Patient is already on Reglan. If this continues patient may need post pyloric tube feeding Subjective Date/time seen: 09/02/24 15:41 Interval history: So the history was obtained from her daughter. Patient has history of Crohn, and rheumatoid arthritis. Evidence of a Raynaud's phenomena during the evaluation. No history of stent, CABG or CVA. 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 Review of Systems Review of Systems: Review of systems was attempted but limited due to patient's confusion. ROS unobtainable: Yes unobtainable due to endotracheal tube, unobtainable due to medical condition and unobtainable due to mental status Exam Narrative: General: Pt is now sedated, intubated and on mechanical ventilation Lungs/Chest: Trachea central clear BS B/L, bibasilar crackles Cardiac: Tachycardia RRR. Normal S1 S2. No murmurs Circulation: Pedal pulses are intact and symmetrical. Abdomen: Decreased bowel sounds. . Soft. NT. ND. Extremities: Warm edema of both arms : [place] in place Neurologic: Prior to intubation patient was AO x3 and was moving all 4 extremities, PERRL now sedated and intubated Skin: 08/30 edema with breakdown of the screen which appears to be popped blisters on right labia. Patient was examined in the presence of female steel rule die maker was patient's nurse. She also has several scabbed wounds on her both legs which are in various healing stage but no open or infected wound. Const: Other: Acutely ill-appearing, appears stated age HENMT: Other: Head is normocephalic atraumatic, mucous membranes are dry, fair dentition Eyes: Other: Pupils are equal and reactive, positive conjunctival pallor, no scleral icterus, lens implants noted bilateral Neck: Other: No JVD, no lymphadenopathy Resp: Other: Coarse crackles bilateral anterior craven, clear posterior craven, moderate tachypnea Cardio: Other: Sinus tachycardia,, 1+ bilateral radial and pedal pulses, no murmur GI: Other: Distended, suprapubic tenderness, lower abdominal midline scar, positive bowel sounds : Other: Ulcers to the right labia that started bleeding after I removed the pure wick catheter that had adhered to the ulcers Skin: Other: Generalized pallor, non jaundice, no petechiae 4-5 second cap refill, scabs to anterior shins bilaterally, ulcer to the left upper buttock the size of a baseball with fat layer exposed, ulcer to the buttock crease 2 or 3 small ulcers sites of the head of a pencil eraser Neuro: Other: Patient is alert awake and alert but slow to respond, cranial nerves 2-12 appear to be grossly intact, oriented to person, place and year, confused as to the month, can not name the current president Extrem: Other: Left ankle is fused, bilateral knee replacements noted bilateral surgical scars on the hips as well, no cyanosis, no edema Psych: Other: Pleasantly confused, cooperative Objective Data Vital Signs Vital Signs: Vital Signs - 24 hr 09/01/24 16:00 09/01/24 16:00 09/01/24 16:00 Temperature 99.5 F Pulse Rate 113 H Respiratory Rate 14 Blood Pressure 92/56 L Pulse Oximetry 96 96 Oxygen Delivery Mechanical Ventilation Fraction of Inspired Oxygen 65 65 09/01/24 16:00 09/01/24 16:00 09/01/24 16:00 Temperature Pulse Rate 112 H 112 H 112 H Respiratory Rate 21 H 21 H 21 H Blood Pressure Pulse Oximetry Oxygen Delivery Fraction of Inspired Oxygen 09/01/24 16:00 09/01/24 16:30 09/01/24 17:02 Temperature Pulse Rate 112 H 113 H Respiratory Rate 20 Blood Pressure Pulse Oximetry Oxygen Delivery Fraction of Inspired Oxygen 60 09/01/24 17:02 09/01/24 17:03 09/01/24 17:03 Temperature Pulse Rate 113 H 113 H 113 H Respiratory Rate 20 20 20 Blood Pressure Pulse Oximetry Oxygen Delivery Fraction of Inspired Oxygen 09/01/24 17:20 09/01/24 18:00 09/01/24 18:00 Temperature Pulse Rate 111 H 112 H 111 H Respiratory Rate 20 Blood Pressure 85/51 L Pulse Oximetry 95 95 Oxygen Delivery Mechanical Ventilation Fraction of Inspired Oxygen 60 09/01/24 18:00 09/01/24 18:00 09/01/24 18:00 Temperature Pulse Rate 111 H 111 H 111 H Respiratory Rate 20 20 20 Blood Pressure Pulse Oximetry Oxygen Delivery Fraction of Inspired Oxygen 09/01/24 18:55 09/01/24 19:02 09/01/24 19:02 Temperature Pulse Rate 114 H 113 H 113 H Respiratory Rate 20 20 20 Blood Pressure Pulse Oximetry Oxygen Delivery Fraction of Inspired Oxygen 09/01/24 19:13 09/01/24 20:00 09/01/24 20:00 Temperature Pulse Rate 110 H 110 H Respiratory Rate 20 Blood Pressure Pulse Oximetry Oxygen Delivery Fraction of Inspired Oxygen 55 09/01/24 20:00 09/01/24 20:00 09/01/24 20:00 Temperature Pulse Rate 110 H 110 H Respiratory Rate 20 20 Blood Pressure Pulse Oximetry Oxygen Delivery Fraction of Inspired Oxygen 55 09/01/24 20:00 09/01/24 20:00 09/01/24 20:05 Temperature Pulse Rate 110 H 109 H Respiratory Rate 22 H Blood Pressure 97/60 L Pulse Oximetry 94 93 95 Oxygen Delivery Mechanical Ventilation Mechanical Ventilation Fraction of Inspired Oxygen 55 55 09/01/24 20:30 09/01/24 22:00 09/01/24 22:00 Temperature 99.2 F Pulse Rate 109 H 110 H Respiratory Rate 20 Blood Pressure Pulse Oximetry Oxygen Delivery Fraction of Inspired Oxygen 09/01/24 22:00 09/01/24 22:00 09/01/24 22:00 Temperature Pulse Rate 110 H 110 H 109 H Respiratory Rate 20 20 24 H Blood Pressure 92/64 L Pulse Oximetry 93 Oxygen Delivery Fraction of Inspired Oxygen 09/01/24 22:57 09/01/24 22:58 09/01/24 23:41 Temperature Pulse Rate 111 H Respiratory Rate Blood Pressure Pulse Oximetry 98 95 Oxygen Delivery Mechanical Ventilation Mechanical Ventilation Fraction of Inspired Oxygen 50 55 50 09/01/24 23:42 09/02/24 00:00 09/02/24 00:00 Temperature 97.0 F L Pulse Rate 121 H 121 H Respiratory Rate 22 H Blood Pressure 101/66 Pulse Oximetry 94 Oxygen Delivery Fraction of Inspired Oxygen 50 09/02/24 00:00 09/02/24 00:00 09/02/24 00:00 Temperature Pulse Rate 121 H 121 H 121 H Respiratory Rate 22 H 22 H 22 H Blood Pressure Pulse Oximetry Oxygen Delivery Fraction of Inspired Oxygen 09/02/24 01:00 09/02/24 01:00 09/02/24 02:00 Temperature Pulse Rate 126 H 126 H 131 H Respiratory Rate 24 H 24 H 21 H Blood Pressure Pulse Oximetry Oxygen Delivery Fraction of Inspired Oxygen 09/02/24 02:00 09/02/24 02:00 09/02/24 02:00 Temperature Pulse Rate 131 H 131 H 131 H Respiratory Rate 21 H 25 H Blood Pressure 96/68 L Pulse Oximetry 93 Oxygen Delivery Fraction of Inspired Oxygen 09/02/24 02:02 09/02/24 02:09 09/02/24 02:21 Temperature Pulse Rate 131 H 131 H Respiratory Rate 24 H Blood Pressure Pulse Oximetry 96 Oxygen Delivery Mechanical Ventilation Fraction of Inspired Oxygen 50 55 09/02/24 04:00 09/02/24 04:00 09/02/24 04:00 Temperature 97.0 F L Pulse Rate 129 H 131 H Respiratory Rate 20 Blood Pressure 95/59 L Pulse Oximetry 98 Oxygen Delivery Fraction of Inspired Oxygen 55 09/02/24 04:00 09/02/24 04:00 09/02/24 04:00 Temperature Pulse Rate 131 H 131 H 131 H Respiratory Rate 20 20 20 Blood Pressure Pulse Oximetry Oxygen Delivery Fraction of Inspired Oxygen 09/02/24 04:00 09/02/24 05:01 09/02/24 05:07 Temperature Pulse Rate 132 H 131 H Respiratory Rate 20 Blood Pressure Pulse Oximetry 98 95 Oxygen Delivery Mechanical Ventilation Mechanical Ventilation Fraction of Inspired Oxygen 55 55 09/02/24 05:07 09/02/24 05:08 09/02/24 05:08 Temperature Pulse Rate 131 H 131 H 131 H Respiratory Rate 20 20 20 Blood Pressure Pulse Oximetry Oxygen Delivery Fraction of Inspired Oxygen 09/02/24 06:00 09/02/24 06:00 09/02/24 06:00 Temperature Pulse Rate 132 H 132 H 132 H Respiratory Rate 16 20 Blood Pressure 95/61 L Pulse Oximetry 99 Oxygen Delivery Fraction of Inspired Oxygen 09/02/24 06:00 09/02/24 06:00 09/02/24 06:19 Temperature Pulse Rate 132 H 132 H Respiratory Rate 20 20 Blood Pressure Pulse Oximetry Oxygen Delivery Fraction of Inspired Oxygen 50 09/02/24 07:50 09/02/24 08:00 09/02/24 08:00 Temperature 99.7 F H Pulse Rate 126 H 122 H 128 H Respiratory Rate 20 21 H Blood Pressure 97/61 L Pulse Oximetry 95 99 Oxygen Delivery Mechanical Ventilation Fraction of Inspired Oxygen 50 09/02/24 08:00 09/02/24 08:00 09/02/24 08:00 Temperature Pulse Rate 128 H 128 H Respiratory Rate 21 H 21 H Blood Pressure Pulse Oximetry 98 Oxygen Delivery Mechanical Ventilation Fraction of Inspired Oxygen 50 09/02/24 08:00 09/02/24 08:00 09/02/24 09:14 Temperature 98.3 F Pulse Rate 126 H 124 H Respiratory Rate 17 Blood Pressure 103/62 Pulse Oximetry 98 Oxygen Delivery Fraction of Inspired Oxygen 50 09/02/24 09:30 09/02/24 10:00 09/02/24 10:00 Temperature 98.3 F Pulse Rate 123 H 121 H 121 H Respiratory Rate 22 H 22 H Blood Pressure 105/57 L 110/58 L Pulse Oximetry 98 99 Oxygen Delivery Fraction of Inspired Oxygen 09/02/24 10:00 09/02/24 10:00 09/02/24 10:00 Temperature Pulse Rate 121 H 121 H 121 H Respiratory Rate 22 H 22 H 22 H Blood Pressure Pulse Oximetry Oxygen Delivery Fraction of Inspired Oxygen 09/02/24 10:30 09/02/24 10:43 09/02/24 11:30 Temperature 97.6 F 98.3 F Pulse Rate 120 H 120 H 118 H Respiratory Rate 21 H 21 H Blood Pressure 104/66 99/64 L Pulse Oximetry 99 98 99 Oxygen Delivery Mechanical Ventilation Fraction of Inspired Oxygen 50 09/02/24 12:00 09/02/24 12:00 09/02/24 12:00 Temperature Pulse Rate 116 H 117 H 117 H Respiratory Rate 22 H 22 H 22 H Blood Pressure Pulse Oximetry Oxygen Delivery Fraction of Inspired Oxygen 09/02/24 12:00 09/02/24 12:00 09/02/24 12:30 Temperature 99.4 F 98.2 F Pulse Rate 116 H 115 H Respiratory Rate 17 21 H Blood Pressure 106/62 103/63 Pulse Oximetry 99 97 Oxygen Delivery Fraction of Inspired Oxygen 50 09/02/24 12:50 09/02/24 12:56 09/02/24 12:56 Temperature 98.3 F Pulse Rate 115 H 115 H 115 H Respiratory Rate 21 H 20 20 Blood Pressure 109/63 Pulse Oximetry 97 Oxygen Delivery Fraction of Inspired Oxygen 09/02/24 13:26 09/02/24 14:00 09/02/24 14:00 Temperature 99.3 F Pulse Rate 114 H 113 H 110 H Respiratory Rate 20 21 H Blood Pressure 107/61 Pulse Oximetry 100 99 Oxygen Delivery Mechanical Ventilation Fraction of Inspired Oxygen 45 09/02/24 14:00 09/02/24 14:00 09/02/24 15:13 Temperature Pulse Rate 110 H 110 H Respiratory Rate 21 H 21 H Blood Pressure Pulse Oximetry Oxygen Delivery Fraction of Inspired Oxygen 45 09/02/24 15:28 09/02/24 15:28 09/02/24 15:29 Temperature Pulse Rate 110 H 110 H 110 H Respiratory Rate 21 H 21 H 21 H Blood Pressure Pulse Oximetry Oxygen Delivery Fraction of Inspired Oxygen 09/02/24 15:29 Temperature Pulse Rate 110 H Respiratory Rate 21 H Blood Pressure Pulse Oximetry Oxygen Delivery Fraction of Inspired Oxygen Intake/Output Intake/Output: Intake & Output 08/30/24 08/31/24 09/01/24 09/02/24 23:59 23:59 23:59 23:59 Intake Total 3105.4 2409.2 3387.6 1422.5 Output Total 2900 650 525 350 Balance 205.4 1759.2 2862.6 1072.5 Meds/Results Medications: Active Medications Generic Name Dose Route Start Last Admin Trade Name Freq PRN Reason Stop Dose Admin Acetaminophen 650 mg 08/29/24 18:17 Acetaminophen 325 Mg Tablet PO Q4H PRN Mild Pain (1-3) or Fever Acetaminophen 650 mg 08/30/24 00:43 08/30/24 06:56 Acetaminophen 650 Mg Suppository RECTAL 650 mg Q6H PRN Administration Mild Pain (1-3) or Fever Acyclovir 400 mg 08/30/24 14:00 09/02/24 14:48 Acyclovir 200 Mg Capsule FEED TUBE 09/09/24 06:01 400 mg Q8HR RHYS Administration Dextrose 12.5 gm 08/29/24 20:42 08/31/24 20:55 Dextrose 50% 25 Gm/50 Ml Syringe IV PUSH 12.5 gm PRN PRN Administration Hypoglycemia Protocol Glucagon 1 mg 08/29/24 20:42 Glucagon For Inj 1 Mg Vial IM PRN PRN Hypoglycemia Protocol Glucose 15 gm 08/29/24 20:42 Glucose Oral Gel 15 Gm Of Glucse In 37.5 Gm Tube PO PRN PRN Hypoglycemia Protocol Heparin Sodium (Porcine) 5,000 units 08/30/24 09:00 09/02/24 09:01 Heparin Sodium 5,000 Units/Ml Vial SUB-Q 5,000 units Q12HR RHYS Administration Hydrocortisone Sodium Succinate 100 mg 09/01/24 09:00 09/02/24 08:56 Hydrocortisone Sodium Succinate 100 Mg/2 Ml Vial IV PUSH 100 mg QAM RHYS Administration Dextrose 1,000 mls @ 100 mls/hr 08/29/24 20:42 Dextrose 5% 1,000 Ml IVPB PRN PRN Hypoglycemia Protocol Cefepime HCl 2 gm in 50 mls @ 100 mls/hr 08/30/24 10:00 09/02/24 08:57 Maxipime 2 Gm/Ns 50 Ml IVPB 100 mls/hr Q12HR RHYS Administration Fentanyl Citrate 2,500 mcg in 250 mls @ 20 mls/hr 08/30/24 10:20 09/02/24 14:00 Fentanyl 2,500 Mcg/Ns 250 Ml IV CONT 200 mcg/hr .[id number] RHYS 20 mls/hr Titration Protocol 200 MCG/HR Midazolam HCl 100 mg in 100 mls @ 10 mls/hr 08/30/24 10:20 09/02/24 15:28 Versed 100 Mg/Ns 100 Ml IV CONT 10 mg/hr .Q10H RHYS 10 mls/hr Administration Protocol 10 MG/HR Levofloxacin/Dextrose 750 mg in 150 mls @ 100 mls/hr 08/30/24 14:00 09/02/24 14:48 Levaquin 750 Mg/D5w 150 Ml IVPB 150 mls/hr Q24H RHYS Administration Propofol 100 mls @ 9.126 mls/hr 08/31/24 08:30 09/02/24 15:29 Diprivan IV CONT 30 mcg/kg/min .[id number] RHYS 9.13 mls/hr Administration Protocol 30 MCG/KG/MIN Albumin Human 100 mls @ 60 mls/hr 09/02/24 08:00 09/02/24 14:48 Albutein IVPB 09/03/24 03:39 60 mls/hr Q6H RHYS Administration Insulin Aspart 3 - 6 units 08/31/24 16:39 09/02/24 12:58 Insulin Aspart (*Bkc) 100 Units/Ml SUB-Q Not Given Q4HR RHYS Protocol Metoclopramide HCl 10 mg 09/01/24 08:00 09/02/24 13:00 Metoclopramide Hcl 10 Mg/10 Ml Soln Udc FEED TUBE 10 mg Q6HR RHYS Administration Multi-Ingred Cream/Lotion/Oil/Oint 1 applic 08/30/24 10:20 09/02/24 08:56 Mineral Oil/White Petrolatum Ointment EACH EYE 1 applic Q12HR RHYS Administration Pantoprazole Sodium 40 mg 08/30/24 10:40 09/02/24 08:56 Pantoprazole Sodium Iv 40 Mg Vial IV PUSH 40 mg Q12HR RHYS Administration Prednisolone Acetate 1 drop 08/30/24 21:00 09/02/24 09:00 Prednisolone Acetate 1% Ophth 5 Ml RIGHT EYE 1 drop Q12HR RHYS Administration Sodium Chloride 10 ml 08/30/24 14:00 09/02/24 14:50 Central Line Flush IV PUSH 10 ml Q8HR RHYS Administration Sodium Chloride 10 ml 08/30/24 12:17 Central Line Flush IV PUSH PRN PRN with TPN bag changes Sodium Chloride 20 ml 08/30/24 12:17 Central Line Flush IV PUSH PRN PRN after blood draws Radiology Results: ITS Impressions Head CT 08/29/24 21:55 Impression: No acute intracranial hemorrhage or suspicious mass effect. Chest/Abdomen/Pelvis CT 08/29/24 21:57 IMPRESSION: Dense bilateral multifocal infiltrates, predominantly perihilar, as detailed above. No additional source is detected for patient's profound sepsis. Abdomen X-Ray 08/30/24 11:02 IMPRESSION: Bilateral pneumonia. Differential include pulmonary edema. Chest X-Ray 09/02/24 06:30 Impression: Stable diffuse bilateral pulmonary disease. Correlate for pulmonary edema, pneumonia, ARDS. Stable support tubes. Labs Labs: Laboratory Results - last 24 hr 08/29/24 08/29/24 08/31/24 21:54 23:12 08:39 WBC RBC Hgb Hct MCV MCH MCHC RDW Plt Count MPV Immature Gran % (Auto) Neut % (Auto) Lymph % (Auto) [place] % (Auto) Eos % (Auto) Baso % (Auto) Lymph # (Auto) [place] # (Auto) Eos # (Auto) Baso # (Auto) Abs Immat Gran (auto) Absolute Neuts (auto) Absolute Nucleated RBC Total Counted Neutrophils % (Manual) Band Neutrophils % Lymphocytes % (Manual) Monocytes % (Manual) Eosinophils % (Manual) Nucleated RBC % Abs Neuts (Manual) Abs Lymphs (Manual) Abs Monocytes (Manual) Absolute Eos (Manual) Smudge Cells Platelet Estimate Hypochromasia Anisocytosis Macrocytosis Ovalocytes Mary Cells Schistocytes Puncture Site ABG pH ABG pCO2 ABG pO2 ABG PO2/FiO2 Ratio ABG HCO3 ABG O2 Saturation ABG O2 Content ABG Base Excess A-a Gradient Oxyhemoglobin Carboxyhemoglobin Methemoglobin Reduced Hemoglobin Total Hemoglobin O2 Delivery Device O2 Liters/Min Minute Volume Vent Rate Vent Mode FiO2 Tidal Volume PEEP Peak Inspir Pressure Pressure Support Sodium Potassium Chloride Carbon Dioxide Anion Gap BUN Creatinine Estim Creat Clear Calc Estimated GFR Glucose POC Capillary Glucose Calcium Magnesium Total Bilirubin AST ALT Alkaline Phosphatase Total Protein Albumin HSV I DNA PCR Not detected HSV II DNA PCR Not detected HSV (PCR) Source Bal right middl Ur L.pneumophila Ag Not detected Mycoplasma pneumon IgM 43 Urine Pneumococcal Ag Not detected Blood Type Antibody Screen Crossmatch 09/01/24 09/01/24 09/01/24 17:46 18:10 19:51 WBC RBC Hgb Hct MCV MCH MCHC RDW Plt Count MPV Immature Gran % (Auto) Neut % (Auto) Lymph % (Auto) [place] % (Auto) Eos % (Auto) Baso % (Auto) Lymph # (Auto) [place] # (Auto) Eos # (Auto) Baso # (Auto) Abs Immat Gran (auto) Absolute Neuts (auto) Absolute Nucleated RBC Total Counted Neutrophils % (Manual) Band Neutrophils % Lymphocytes % (Manual) Monocytes % (Manual) Eosinophils % (Manual) Nucleated RBC % Abs Neuts (Manual) Abs Lymphs (Manual) Abs Monocytes (Manual) Absolute Eos (Manual) Smudge Cells Platelet Estimate Hypochromasia Anisocytosis Macrocytosis Ovalocytes [place] Cells Schistocytes Puncture Site ABG pH ABG pCO2 ABG pO2 ABG PO2/FiO2 Ratio ABG HCO3 ABG O2 Saturation ABG O2 Content ABG Base Excess A-a Gradient Oxyhemoglobin Carboxyhemoglobin Methemoglobin Reduced Hemoglobin Total Hemoglobin O2 Delivery Device O2 Liters/Min Minute Volume Vent Rate Vent Mode FiO2 Tidal Volume PEEP Peak Inspir Pressure Pressure Support Sodium 136 L Potassium 3.4 Chloride 111 H Carbon Dioxide 19 L Anion Gap 6 BUN 38 H Creatinine 1.10 H Estim Creat Clear Calc 34 Estimated GFR 50 L Glucose 311 H POC Capillary Glucose 166 H 131 H Calcium 8.8 Magnesium 2.0 Total Bilirubin AST ALT Alkaline Phosphatase Total Protein Albumin HSV I DNA PCR HSV II DNA PCR HSV (PCR) Source Ur L.pneumophila Ag Mycoplasma pneumon IgM Urine Pneumococcal Ag Blood Type Antibody Screen Crossmatch 09/01/24 09/01/24 09/02/24 22:01 23:17 02:06 WBC RBC Hgb Hct MCV MCH MCHC RDW Plt Count MPV Immature Gran % (Auto) Neut % (Auto) Lymph % (Auto) [place] % (Auto) Eos % (Auto) Baso % (Auto) Lymph # (Auto) [place] # (Auto) Eos # (Auto) Baso # (Auto) Abs Immat Gran (auto) Absolute Neuts (auto) Absolute Nucleated RBC Total Counted Neutrophils % (Manual) Band Neutrophils % Lymphocytes % (Manual) Monocytes % (Manual) Eosinophils % (Manual) Nucleated RBC % Abs Neuts (Manual) Abs Lymphs (Manual) Abs Monocytes (Manual) Absolute Eos (Manual) Smudge Cells Platelet Estimate Hypochromasia Anisocytosis Macrocytosis Ovalocytes [place] Cells Schistocytes Puncture Site ABG pH ABG pCO2 ABG pO2 ABG PO2/FiO2 Ratio ABG HCO3 ABG O2 Saturation ABG O2 Content ABG Base Excess A-a Gradient Oxyhemoglobin Carboxyhemoglobin Methemoglobin Reduced Hemoglobin Total Hemoglobin O2 Delivery Device O2 Liters/Min Minute Volume Vent Rate Vent Mode FiO2 Tidal Volume PEEP Peak Inspir Pressure Pressure Support Sodium Potassium Chloride Carbon Dioxide Anion Gap BUN Creatinine Estim Creat Clear Calc Estimated GFR Glucose POC Capillary Glucose 126 H 119 H 131 H Calcium Magnesium Total Bilirubin AST ALT Alkaline Phosphatase Total Protein Albumin HSV I DNA PCR HSV II DNA PCR HSV (PCR) Source Ur L.pneumophila Ag Mycoplasma pneumon IgM Urine Pneumococcal Ag Blood Type Antibody Screen Crossmatch 09/02/24 09/02/24 09/02/24 04:58 05:00 06:47 WBC 40.6 H RBC 2.28 L Hgb 6.9 L* Hct 22.2 L MCV 97.4 MCH 30.3 MCHC 31.1 L RDW 26.3 H Plt Count 105 L MPV 12.2 H Immature Gran % (Auto) Not Reportable Neut % (Auto) Not Reportable Lymph % (Auto) Not Reportable [place] % (Auto) Not Reportable Eos % (Auto) Not Reportable Baso % (Auto) Not Reportable Lymph # (Auto) Not Reportable [place] # (Auto) Not Reportable Eos # (Auto) Not Reportable Baso # (Auto) Not Reportable Abs Immat Gran (auto) Not Reportable Absolute Neuts (auto) Not Reportable Absolute Nucleated RBC Not Reportable Total Counted 100 Neutrophils % (Manual) 80 H Band Neutrophils % 9 H Lymphocytes % (Manual) 9.0 L Monocytes % (Manual) 1 L Eosinophils % (Manual) 1 Nucleated RBC % Not Reportable Abs Neuts (Manual) 36.13 H Abs Lymphs (Manual) 3.65 Abs Monocytes (Manual) 0.40 Absolute Eos (Manual) 0.40 Smudge Cells Present Platelet Estimate Decreased Hypochromasia 1+ Anisocytosis 2+ Macrocytosis 1+ Ovalocytes 1+ [place] Cells 1+ Schistocytes None seen Puncture Site Right radial ABG pH 7.320 L ABG pCO2 35.5 ABG pO2 78.2 L ABG PO2/FiO2 Ratio 1.42 ABG HCO3 17.9 L ABG O2 Saturation 94.8 L ABG O2 Content 10.1 L ABG Base Excess -7.5 A-a Gradient 274.5 Oxyhemoglobin 94.2 Carboxyhemoglobin 0.8 Methemoglobin 0.1 Reduced Hemoglobin 4.9 Total Hemoglobin 7.5 L* O2 Delivery Device Ventilator O2 Liters/Min Not Reportable Minute Volume Not Reportable Vent Rate 20 Vent Mode Cmv FiO2 55 Tidal Volume 370 PEEP 12 Peak Inspir Pressure Not Reportable Pressure Support Not Reportable Sodium 140 Potassium 4.6 Chloride 115 H Carbon Dioxide 19 L Anion Gap 6 BUN 50 H D Creatinine 1.07 H Estim Creat Clear Calc 35 Estimated GFR 51 L Glucose 116 H POC Capillary Glucose 117 H Calcium 9.8 Magnesium 2.1 Total Bilirubin 0.1 L AST 84 H ALT 40 H Alkaline Phosphatase 128 H Total Protein 4.3 L Albumin 2.0 L HSV I DNA PCR HSV II DNA PCR HSV (PCR) Source Ur L.pneumophila Ag Mycoplasma pneumon IgM Urine Pneumococcal Ag Blood Type O Positive Antibody Screen Negative Crossmatch See Detail 06/22/25 06/22/25 06/22/25 08:00 09:58 12:05 WBC RBC Hgb Hct MCV MCH MCHC RDW Plt Count MPV Immature Gran % (Auto) Neut % (Auto) Lymph % (Auto) [place] % (Auto) Eos % (Auto) Baso % (Auto) Lymph # (Auto) [place] # (Auto) Eos # (Auto) Baso # (Auto) Abs Immat Gran (auto) Absolute Neuts (auto) Absolute Nucleated RBC Total Counted Neutrophils % (Manual) Band Neutrophils % Lymphocytes % (Manual) Monocytes % (Manual) Eosinophils % (Manual) Nucleated RBC % Abs Neuts (Manual) Abs Lymphs (Manual) Abs Monocytes (Manual) Absolute Eos (Manual) Smudge Cells Platelet Estimate Hypochromasia Anisocytosis Macrocytosis Ovalocytes [place] Cells Schistocytes Puncture Site ABG pH ABG pCO2 ABG pO2 ABG PO2/FiO2 Ratio ABG HCO3 ABG O2 Saturation ABG O2 Content ABG Base Excess A-a Gradient Oxyhemoglobin Carboxyhemoglobin Methemoglobin Reduced Hemoglobin Total Hemoglobin O2 Delivery Device O2 Liters/Min Minute Volume Vent Rate Vent Mode FiO2 Tidal Volume PEEP Peak Inspir Pressure Pressure Support Sodium Potassium Chloride Carbon Dioxide Anion Gap BUN Creatinine Estim Creat Clear Calc Estimated GFR Glucose POC Capillary Glucose 106 H 97 102 Calcium Magnesium Total Bilirubin AST ALT Alkaline Phosphatase Total Protein Albumin HSV I DNA PCR HSV II DNA PCR HSV (PCR) Source Ur L.pneumophila Ag Mycoplasma pneumon IgM Urine Pneumococcal Ag Blood Type Antibody Screen Crossmatch Quality VTE Prophylaxis VTE prophylaxis: pharmacologic ordered Hospitalist MIPS Advance Care Plan I have confirmed that the patient's Advanced Care Plan is present, code status is documented, or surrogate decision maker is listed in patient medical record.: Yes Medication Reconciliation I have utilized all available resources to obtain, update and review the patients current medications (includes all prescriptions, OTC, herbals, cannabis, and nutritional supplements).: Yes
[2024-09-03] VITALS (44 sets, daily range): BP systolic 102–159; BP diastolic 64–96; PULSE 89–166; RESP 18–29; TEMP 36.6–37.2; O2SAT 80–98
[2024-09-03] MEDS: PROPOFOL IV EMULSION 100 ML 6.08 MG IV CONT (00:49)
[2024-09-03] MEDS: FENTANYL 2,500MCG/NS250ML(*CRX 2,500 MCG/250 ML BAG 20 MCG IV CONT (00:53)
[2024-09-03] MEDS: MIDAZOLAM 100MG/NS 100ML(*CRX) 100 MG/100 ML BAG 10 MG IV CONT (00:54)
[2024-09-03] MEDS: ALBUMIN HUMAN 25% 25 GM/100 ML 100 ML IVPB (00:59)
[2024-09-03 05:33] LABS: Hematocrit 23.8 % (37.0-47.0); Hemoglobin 7.7 g/dL (12.0-15.0); Mean Corpuscular HGB Conc 32.4 g/dl (32-36); Mean Corpuscular Hemoglobin 30.0 pg (26-34); Mean Corpuscular Volume 92.6 fl (80-100); Platelet Count Result 110 k/mm3 (150-375); Red Blood Count 2.57 M/mm3 (4.2-5.4); White Blood Count 35.4 K/mm3 (4.5-10.0)
[2024-09-03 05:36] LABS: Alveolar/Arterial O2 Gradient 333.1 mmHg; Carboxyhemoglobin 1.3 % THb (0-2.0); Fractional Inspired Oxygen 60 %; HCO3 ABG 19.9 mEq/l (22.0-26.0); Methemoglobin ABG 0.3 %THb (0-1.5); Modified Allen's Test Unable to perform; Oxygen Content ABG 10.0 %vol (16.0-22.0); Oxygen Saturation ABG 87.9 % (95.0-100.0); PCO2 ABG 35.9 mmHg (35.0-45.0); PO2 ABG 55.2 mmHg (80.0-100.0); PO2 FiO2 Ratio Arterial Blood 0.92 %; Reduced Hemoglobin 11.2 %THb (0-5.0); Site Drawn RIGHT RADIAL
[2024-09-03 05:37] LABS: Arterial Blood Gas Tidal Volume 370 ml; Arterial Blood Gas Ventilator rate 20 /MIN
[2024-09-03] MEDS: ACYCLOVIR 200 MG CAPSULE 400 MG FEED TUBE ×3 (05:43→22:21)
[2024-09-03] MEDS: METOCLOPRAMIDE HCL 10 MG/10 ML SOLN UDC FEED TUBE ×4 (05:43→23:49)
[2024-09-03] MEDS: CENTRAL LINE FLUSH 10 ML IV PUSH ×3 (05:44→22:21)
[2024-09-03 06:07] LABS: Anisocytosis 1+; Band Neutrophils Percent 4 % (0-6); Lymphocytes Absolute Manual 4.24 K/mm3 (1.1-4.5); Lymphocytes Percent Manual 12.0 % (18-44); Metamyelocytes Percent 1 %; Monocytes Absolute Manual 0.70 K/mm3 (0.1-0.90); Monocytes Percent Manual 2 % (3-9); Myelocytes Percent 1 %; Neutrophils Absolute Manual 29.38 K/mm3 (1.3-6.7); Neutrophils Percent Manual 79 % (46-73); Promyelocytes Percent 1 %; Total Cells Counted 100
[2024-09-03 06:08] LABS: Microcytosis 1+ (NORMAL); Ovalocytes 1+; Poikilocytosis 1+; Schistocytes Rare
[2024-09-03 06:09] LABS: Burr Cells 1+
[2024-09-03 06:10] LABS: Hypochromasia 2+; Smudge Cells FEW
[2024-09-03 06:15] LABS: Alanine Aminotransferase 27 U/L (6-35); Albumin Level 3.1 g/dL (3.5-5.1); Alkaline Phosphatase 82 U/L (38-126); Anion Gap 10 mmol/L (4-12); Aspartate Amino Transferase 65 U/L (14-36); Bilirubin,Total 0.5 mg/dL (0.2-1.3); Blood Urea Nitrogen 60 mg/dL (7-17); Calcium 11.0 mg/dL (8.4-10.2); Carbon Dioxide 18 mmol/L (22-30); Chloride 115 mmol/L (98-107); Estimated CRCL calculation 39 ml/min; Estimated Glomerular Filt Rate 60; Glucose 98 mg/dL (65-110); Magnesium 2.1 mg/dL (1.6-2.3); Potassium 4.3 mmol/L (3.4-5.0); Sodium 143 mmol/L (137-145); Total Protein 5.2 g/dL (6.3-8.2)
[2024-09-03] MEDS: FUROSEMIDE INJ 40 MG/4 ML VIAL IV PUSH (06:56)
[2024-09-03] MEDS: ROCURONIUM BROMIDE 50 MG/5 ML VIAL IV PUSH (08:14)
[2024-09-03] MEDS: HYDROCORTISONE SODIUM SUCCINATE 100 MG/2 ML VIAL 20 MG IV PUSH (08:19)
[2024-09-03] MEDS: MINERAL OIL/WHITE PETROLATUM OINTMENT 1 APPLIC EACH EYE ×2 (08:19→20:03)
[2024-09-03] MEDS: PANTOPRAZOLE SODIUM IV 40 MG VIAL IV PUSH ×2 (08:19→20:04)
[2024-09-03] MEDS: CEFEPIME 2 GM/NS 50 ML 2 GM/50 ML BAG IVPB ×2 (08:20→20:00)
[2024-09-03] MEDS: MIDAZOLAM HCL (*CRX) 2 MG/2 ML VIAL 4 MG IV PUSH (09:05)
[2024-09-03] MEDS: METOPROLOL TARTRATE INJ 5 MG/5 ML VIAL IV PUSH (09:31)
--- NOTE | 2024-09-03 10:06 | WPDINTPN ---
Progress Note: A&P Assessment and Plan (1) Acute respiratory failure: Code(s): J96.00 - Acute respiratory failure, unspecified whether with hypoxia or hypercapnia Status: Acute Assessment and Plan: Acute respiratory failure and sepsis secondary to bilateral Pseudomonas pneumonia in an immunocompromised patient who was on methotrexate and hydroxychloroquine. ARDS is another possibility 08/29 CT Chest Dense bilateral multifocal infiltrates, predominantly perihilar, as detailed above. No additional source is detected for patient's profound sepsis 08/30 During my assessment patient was tachypneic and tachycardic and in respiratory distress although she was maintaining her oxygen saturation Option of intubation and mechanical ventilation was discussed the patient and patient was agreeable as she was in respiratory distress. Risks and benefits were explained to the patient and her family and they all agree were agreeable and verbalized understanding to proceed. Patient was transferred to ICU and electively intubated BAL culture is growing Pseudomonas which is pansensitive Continue broad-spectrum antibiotics in the form of cefepime and Levaquin. Vancomycin discontinued Blood and sputum culture negative PCR for influenza RSV and COVID was negative Urine Legionella negative and pneumococcal antigen negative Negative Mycoplasma IgM 08/31 patient underwent bronchoscopy which did not show any LR hemorrhage or tracheobronchitis. BAL samples collected and sent to the lab and growing Pseudomonas Continue hydrocortisone but will decrease dose as patient was on chronic low-dose prednisone Wean FiO2. Continue PEEP to 12 Patient currently on CMV with increased oxygen requirement. I will increase the PEEP back to 12 and may have to increase it further. I will give patient rocuronium to prevent ventilator see synchrony and also increase the sedation. Once stabilized I will consider putting patient in position (2) Gastroesophageal reflux disease: Qualifiers: Esophagitis presence: esophagitis presence not specified Qualified Code(s): K21.9 - Gastro-esophageal reflux disease without esophagitis Code(s): K21.9 - Gastro-esophageal reflux disease without esophagitis Status: Acute Assessment and Plan: PPI q.12 hours (3) FRANK (acute kidney injury): Code(s): N17.9 - Acute kidney failure, unspecified Status: Acute Assessment and Plan: Patient presented with elevated creatinine which was likely secondary to sepsis. Creatinine improved with IV fluids Cut down on further IV fluids and patient was given IV fluids Urine output improved. Patient was given Lasix yesterday to prevent volume overload 09/02 Overnight creatinine has slightly increased again Hold diuretics. 25% albumin was given 09/03 creatinine improved and states in normal range Will try to maintain map above 65 in Monitor urine output electrolytes and creatinine Lasix IV will be given again today [place] catheter for accurate I&Os (4) Sepsis: Qualifiers: Sepsis acute organ dysfunction status: with acute organ dysfunction Sepsis type: sepsis due to unspecified organism Severe sepsis acute organ dysfunction type: encephalopathy Severe sepsis shock status: without septic shock Qualified Code(s): A41.9 - Sepsis, unspecified organism; R65.20 - Severe sepsis without septic shock; G93.41 - Metabolic encephalopathy Code(s): A41.9 - Sepsis, unspecified organism Status: Acute Assessment and Plan: See above (5) Immunosuppressed status: Code(s): D89.9 - Disorder involving the immune mechanism, unspecified Status: Acute Assessment and Plan: See above (6) Rheumatoid arthritis: Code(s): M06.9 - Rheumatoid arthritis, unspecified Status: Acute Assessment and Plan: Hold methotrexate and hydroxychloroquine (7) Toxic metabolic encephalopathy: Code(s): G92.8 - Other toxic encephalopathy Status: Acute Assessment and Plan: Patient presented with altered mental status and confusion which appears to be encephalopathy ache. Patient has sepsis and was on several medication including tramadol and benzodiazepine at home Patient appears much more awake and alert this morning before intubation and is now oriented x [address] was negative TSH was normal Patient obviously now sedated and intubated. Patient has been on benzodiazepine and pain medications chronically and requiring significant amount of medications to keep her sedated (8) Pneumonia: Qualifiers: Laterality: bilateral Lung location: unspecified part of lung Pneumonia type: due to unspecified organism Qualified Code(s): J18.9 - Pneumonia, unspecified organism Code(s): J18.9 - Pneumonia, unspecified organism Status: Acute Assessment and Plan: See above (9) Urinary tract infection: Qualifiers: Hematuria presence: with hematuria Urinary tract infection type: site unspecified Qualified Code(s): N39.0 - Urinary tract infection, site not specified; R31.9 - Hematuria, unspecified Code(s): N39.0 - Urinary tract infection, site not specified Status: Acute Assessment and Plan: UA suggestive of UTI Cultures ordered On broad-spectrum antibiotics (10) Herpes labialis: Code(s): B00.1 - Herpesviral vesicular dermatitis Status: Acute Assessment and Plan: Continue acyclovir through tube (11) Hypoglycemia: Code(s): E16.2 - Hypoglycemia, unspecified Status: Acute Assessment and Plan: Patient had couple episodes of hypoglycemia early in the course. Patient is on D5 half-normal saline along with tube feeds. To consult fluid I will change flushes to D5 water and changed infusion to D10 Blood glucose is now improved and D10 has been weaned off (12) Ileus: Code(s): K56.7 - Ileus, unspecified Status: Acute Assessment and Plan: Although bowel sounds are present patient has not been tolerating tube feeds with very high residuals. Tube feeds were held yesterday for multiple hours but residuals remain high. I will attach OG tube to suction to empty the stomach and restart tube feeds at a low rate of 20 mL/hour. Patient is already on Reglan. Patient may need post pyloric tube feeding at this time respiratory status does not allow transferred to radiology. Will continue tube feeds at low rate at 20 mL (13) Peripheral ischemia: Code(s): I99.8 - Other disorder of circulatory system Status: Acute Assessment and Plan: Patient has developed mottling of all 10 fingers. She also has mottling of her toes The bilateral in systemic presentation suggest against vascular clot Radial pulses are dopplerable and staff was able to palpated Blood pressure is adequate Monitor maintain mean arterial pressure above 65 (14) Swelling of both upper extremities: Code(s): M79.89 - Other specified soft tissue disorders Status: Acute Assessment and Plan: Likely secondary to edema as it is bilateral Will check Dopplers to rule out DVT Lasix IV Plan DVT prophylaxis -heparin SC Stress ulcer prophylaxis -Protonix Nutrition -continue tube feeds at low rate. Continue Reglan Code Status - Full Code I had long discussion with patient's [id number], son and ex-. I updated them with overnight events and patient's current status I explained the patient is critically ill and may not make it to this hospitalization. She has not shown any significant improvement when it comes to respiratory status over last few days despite treatment. I discussed code status and goals of care. [id number] mention that patient would not want to be on mechanical ventilation for prolonged period of time. They are open to making the patient DNR and are discuss among themselves. Total Critical Care Time - 60 minutes Due to a high probability of clinically significant, life threatening deterioration, the patient required my highest level of preparedness to intervene emergently and I personally spent this critical care time directly and personally managing the patient. This critical care time included obtaining a history; examining the patient; pulse oximetry; ordering and review of studies; arranging urgent treatment with development of a management plan; evaluation of patient's response to treatment; frequent reassessment; and discussions with other providers. It was exclusive of separately billable procedures and treating other patients and teaching time. Please see Assessment and Plan section and the rest of the note for further information on patient assessment and treatment Subjective Date/time seen: 09/03/24 Overnight events reviewed. Afebrile Continues to be on mechanical ventilation with significant increase in oxygen requirement overnight. Peep of 10 FiO2 increased to 80% She is sedated with Versed fentanyl and propofol and still tachycardic and tachypneic Afebrile Tube feeds at 20 mL/hour Sinus Tachycardia Unable to provide any history as patient is sedated Nursing staff nose test mottling of all fingers and toes Interval history: 68-year-old with a history of rheumatoid arthritis, Crohn's, GERD admitted to ICU for pneumonia and respiratory failure requiring intubation and mechanical ventilation Review of Systems Review of Systems: ROS unobtainable: Yes unobtainable due to endotracheal tube, unobtainable due to medical condition and unobtainable due to mental status Exam Narrative: General: Pt is now sedated, intubated and on mechanical ventilation Lungs/Chest: Trachea central course BS B/L, bibasilar crackles Cardiac: Tachycardia RRR. Normal S1 S2. No murmurs Circulation: Bilateral pulses are dopplerable Abdomen: Decreased bowel sounds. . Soft. NT. ND. Extremities: Warm edema of both arms right more than left with some weeping : [place] in place Neurologic: Prior to intubation patient was AO x3 and was moving all 4 extremities, PERRL now sedated and intubated and does not respond to pain Skin: 08/30 edema with breakdown of the screen which appears to be popped blisters on right labia. Patient was examined in the presence of female surgical appliances salesperson was patient's nurse. She also has several scabbed wounds on her both legs which are in various healing stage but no open or infected wound. All 10 fingers appear in mottled. Patient also has mottling of toes but it is less as compared to her fingers. Both radial pulses are dopplerable to me and the nurse was able to palpate them Objective Data Vital Signs Vital Signs: Vital Signs - 24 hr 09/02/24 10:30 09/02/24 10:43 09/02/24 11:30 Temperature 36.4 C 36.8 C Pulse Rate 120 H 120 H 118 H Respiratory Rate 21 H 21 H Blood Pressure 104/66 99/64 L Pulse Oximetry 99 98 99 Oxygen Delivery Mechanical Ventilation Fraction of Inspired Oxygen 50 09/02/24 12:00 09/02/24 12:00 09/02/24 12:00 Temperature Pulse Rate 116 H 117 H 117 H Respiratory Rate 22 H 22 H 22 H Blood Pressure Pulse Oximetry Oxygen Delivery Fraction of Inspired Oxygen 09/02/24 12:00 09/02/24 12:00 09/02/24 12:00 Temperature 37.4 C Pulse Rate 116 H Respiratory Rate 17 Blood Pressure 106/62 Pulse Oximetry 99 99 Oxygen Delivery Mechanical Ventilation Fraction of Inspired Oxygen 50 45 09/02/24 12:00 09/02/24 12:30 09/02/24 12:50 Temperature 36.8 C 36.8 C Pulse Rate 115 H 115 H 115 H Respiratory Rate 21 H 21 H Blood Pressure 103/63 109/63 Pulse Oximetry 97 97 Oxygen Delivery Fraction of Inspired Oxygen 09/02/24 12:56 09/02/24 12:56 09/02/24 13:26 Temperature Pulse Rate 115 H 115 H 114 H Respiratory Rate 20 20 Blood Pressure Pulse Oximetry 100 Oxygen Delivery Mechanical Ventilation Fraction of Inspired Oxygen 45 09/02/24 14:00 09/02/24 14:00 09/02/24 14:00 Temperature 37.4 C Pulse Rate 113 H 110 H 110 H Respiratory Rate 20 21 H 21 H Blood Pressure 107/61 Pulse Oximetry 99 Oxygen Delivery Fraction of Inspired Oxygen 09/02/24 14:00 09/02/24 14:00 09/02/24 15:13 Temperature Pulse Rate 110 H 113 H Respiratory Rate 21 H Blood Pressure Pulse Oximetry Oxygen Delivery Fraction of Inspired Oxygen 45 09/02/24 15:28 09/02/24 15:28 09/02/24 15:29 Temperature Pulse Rate 110 H 110 H 110 H Respiratory Rate 21 H 21 H 21 H Blood Pressure Pulse Oximetry Oxygen Delivery Fraction of Inspired Oxygen 09/02/24 15:29 09/02/24 16:00 09/02/24 16:00 Temperature Pulse Rate 110 H 100 100 Respiratory Rate 21 H 21 H 21 H Blood Pressure Pulse Oximetry Oxygen Delivery Fraction of Inspired Oxygen 09/02/24 16:00 09/02/24 16:00 09/02/24 16:00 Temperature Pulse Rate 100 Respiratory Rate 21 H Blood Pressure Pulse Oximetry 99 Oxygen Delivery Mechanical Ventilation Fraction of Inspired Oxygen 45 45 09/02/24 16:00 09/02/24 16:00 09/02/24 16:22 Temperature 36.7 C Pulse Rate 99 101 H 99 Respiratory Rate 20 Blood Pressure 94/55 L Pulse Oximetry 99 100 Oxygen Delivery Mechanical Ventilation Fraction of Inspired Oxygen 45 09/02/24 18:00 09/02/24 18:00 09/02/24 18:00 Temperature Pulse Rate 95 95 95 Respiratory Rate 20 20 20 Blood Pressure Pulse Oximetry Oxygen Delivery Fraction of Inspired Oxygen 09/02/24 18:00 09/02/24 18:00 09/02/24 20:00 Temperature Pulse Rate 96 95 100 Respiratory Rate 20 20 Blood Pressure 98/61 L Pulse Oximetry 98 Oxygen Delivery Fraction of Inspired Oxygen 09/02/24 20:00 09/02/24 20:00 09/02/24 20:00 Temperature Pulse Rate 100 100 Respiratory Rate 20 20 Blood Pressure Pulse Oximetry Oxygen Delivery Fraction of Inspired Oxygen 40 09/02/24 20:00 09/02/24 20:00 09/02/24 20:00 Temperature 36.9 C Pulse Rate 100 99 Respiratory Rate 20 Blood Pressure 104/61 Pulse Oximetry 98 98 Oxygen Delivery Mechanical Ventilation Fraction of Inspired Oxygen 40 09/02/24 20:04 09/02/24 22:00 09/02/24 22:00 Temperature Pulse Rate 98 99 97 Respiratory Rate 20 Blood Pressure 98/63 L Pulse Oximetry 98 95 Oxygen Delivery Mechanical Ventilation Fraction of Inspired Oxygen 45 09/02/24 22:00 09/02/24 22:00 09/02/24 22:00 Temperature Pulse Rate 97 97 97 Respiratory Rate 20 20 20 Blood Pressure Pulse Oximetry Oxygen Delivery Fraction of Inspired Oxygen 09/02/24 23:05 09/03/24 00:00 09/03/24 00:00 Temperature Pulse Rate 98 Respiratory Rate Blood Pressure Pulse Oximetry 96 94 Oxygen Delivery Mechanical Ventilation Mechanical Ventilation Fraction of Inspired Oxygen 40 40 40 09/03/24 00:00 09/03/24 00:00 09/03/24 00:00 Temperature 36.7 C Pulse Rate 94 94 94 Respiratory Rate 20 20 Blood Pressure 110/82 Pulse Oximetry 94 Oxygen Delivery Fraction of Inspired Oxygen 09/03/24 00:00 09/03/24 00:00 09/03/24 00:49 Temperature Pulse Rate 94 94 90 Respiratory Rate 20 20 20 Blood Pressure Pulse Oximetry Oxygen Delivery Fraction of Inspired Oxygen 09/03/24 00:49 09/03/24 00:53 09/03/24 00:53 Temperature Pulse Rate 90 89 89 Respiratory Rate 20 20 20 Blood Pressure Pulse Oximetry Oxygen Delivery Fraction of Inspired Oxygen 09/03/24 00:54 09/03/24 00:54 09/03/24 01:58 Temperature Pulse Rate 89 89 91 Respiratory Rate 20 20 Blood Pressure Pulse Oximetry 92 Oxygen Delivery Mechanical Ventilation Fraction of Inspired Oxygen 50 09/03/24 02:00 09/03/24 02:00 09/03/24 02:00 Temperature Pulse Rate 93 93 93 Respiratory Rate 20 20 Blood Pressure Pulse Oximetry Oxygen Delivery Fraction of Inspired Oxygen 09/03/24 02:00 09/03/24 02:00 09/03/24 04:00 Temperature Pulse Rate 93 92 Respiratory Rate 20 20 Blood Pressure 107/70 Pulse Oximetry 94 Oxygen Delivery Fraction of Inspired Oxygen 50 09/03/24 04:00 09/03/24 04:00 09/03/24 04:00 Temperature 36.6 C Pulse Rate 98 99 Respiratory Rate 20 Blood Pressure 112/70 Pulse Oximetry 80 L 89 L Oxygen Delivery Mechanical Ventilation Fraction of Inspired Oxygen 50 09/03/24 04:00 09/03/24 04:00 09/03/24 04:00 Temperature Pulse Rate 99 99 99 Respiratory Rate 20 20 20 Blood Pressure Pulse Oximetry Oxygen Delivery Fraction of Inspired Oxygen 09/03/24 04:14 09/03/24 05:41 09/03/24 05:45 Temperature Pulse Rate 102 H Respiratory Rate Blood Pressure Pulse Oximetry 89 L Oxygen Delivery Mechanical Ventilation Fraction of Inspired Oxygen 60 60 70 09/03/24 06:00 09/03/24 06:00 09/03/24 06:00 Temperature Pulse Rate 105 H 105 H 105 H Respiratory Rate 20 20 Blood Pressure 127/78 Pulse Oximetry 90 Oxygen Delivery Fraction of Inspired Oxygen 09/03/24 06:00 09/03/24 06:00 09/03/24 06:56 Temperature Pulse Rate 105 H 105 H Respiratory Rate 20 20 Blood Pressure Pulse Oximetry Oxygen Delivery Fraction of Inspired Oxygen 70 09/03/24 07:11 09/03/24 07:30 09/03/24 07:35 Temperature Pulse Rate 130 H 135 H Respiratory Rate 22 H 18 Blood Pressure Pulse Oximetry Oxygen Delivery Fraction of Inspired Oxygen 80 09/03/24 07:40 09/03/24 07:45 09/03/24 07:50 Temperature Pulse Rate 140 H 144 H 145 H Respiratory Rate 18 18 20 Blood Pressure Pulse Oximetry Oxygen Delivery Fraction of Inspired Oxygen 09/03/24 08:50 09/03/24 09:31 09/03/24 09:37 Temperature Pulse Rate 164 H 157 H 122 H Respiratory Rate 20 20 Blood Pressure Pulse Oximetry Oxygen Delivery Fraction of Inspired Oxygen 09/03/24 09:38 Temperature Pulse Rate 122 H Respiratory Rate 20 Blood Pressure Pulse Oximetry Oxygen Delivery Fraction of Inspired Oxygen Intake/Output Intake/Output: Intake & Output 08/31/24 09/01/24 09/02/24 09/03/24 23:59 23:59 23:59 23:59 Intake Total 2409.2 3387.6 2328.4 952.1 Output Total 510 217 7783 550 Balance 1759.2 2862.6 1178.4 402.1 Meds/Results Medications: Active Medications Generic Name Dose Route Start Last Admin Trade Name Freq PRN Reason Stop Dose Admin Acetaminophen 650 mg 08/29/24 18:17 Acetaminophen 325 Mg Tablet PO Q4H PRN Mild Pain (1-3) or Fever Acetaminophen 650 mg 08/30/24 00:43 08/30/24 06:56 Acetaminophen 650 Mg Suppository RECTAL 650 mg Q6H PRN Administration Mild Pain (1-3) or Fever Acyclovir 400 mg 08/30/24 14:00 09/03/24 05:43 Acyclovir 200 Mg Capsule FEED TUBE 09/09/24 06:01 400 mg Q8HR RHYS Administration Dextrose 12.5 gm 08/29/24 20:42 08/31/24 20:55 Dextrose 50% 25 Gm/50 Ml Syringe IV PUSH 12.5 gm PRN PRN Administration Hypoglycemia Protocol Glucagon 1 mg 08/29/24 20:42 Glucagon For Inj 1 Mg Vial IM PRN PRN Hypoglycemia Protocol Glucose 15 gm 08/29/24 20:42 Glucose Oral Gel 15 Gm Of Glucse In 37.5 Gm Tube PO PRN PRN Hypoglycemia Protocol Heparin Sodium (Porcine) 5,000 units 08/30/24 09:00 09/03/24 08:20 Heparin Sodium 5,000 Units/Ml Vial SUB-Q 5,000 units Q12HR RHYS Administration Hydrocortisone Sodium Succinate 20 mg 09/03/24 09:00 09/03/24 08:19 Hydrocortisone Sodium Succinate 100 Mg/2 Ml Vial IV PUSH 20 mg QAM RHYS Administration Dextrose 1,000 mls @ 100 mls/hr 08/29/24 20:42 Dextrose 5% 1,000 Ml IVPB PRN PRN Hypoglycemia Protocol Cefepime HCl 2 gm in 50 mls @ 100 mls/hr 08/30/24 10:00 09/03/24 08:35 Maxipime 2 Gm/Ns 50 Ml IVPB Infused Q12HR RHYS Infusion Fentanyl Citrate 2,500 mcg in 250 mls @ 20 mls/hr 08/30/24 10:20 09/03/24 09:37 Fentanyl 2,500 Mcg/Ns 250 Ml IV CONT 225 mcg/hr .[id number] RHYS 22.5 mls/hr Titration Protocol 200 MCG/HR Midazolam HCl 100 mg in 100 mls @ 10 mls/hr 08/30/24 10:20 09/03/24 09:38 Versed 100 Mg/Ns 100 Ml IV CONT 11 mg/hr .Q10H RHYS 11 mls/hr Titration Protocol 10 MG/HR Levofloxacin/Dextrose 750 mg in 150 mls @ 100 mls/hr 08/30/24 14:00 09/02/24 16:28 Levaquin 750 Mg/D5w 150 Ml IVPB Infused Q24H RHYS Infusion Propofol 100 mls @ 15.21 mls/hr 08/31/24 08:30 09/03/24 08:50 Diprivan IV CONT 50 mcg/kg/min .Q6H35M RHYS 15.21 mls/hr Titration Protocol 50 MCG/KG/MIN Insulin Aspart 3 - 6 units 08/31/24 16:39 09/03/24 09:39 Insulin Aspart (*Bkc) 100 Units/Ml SUB-Q Not Given Q4HR RHYS Protocol Metoclopramide HCl 10 mg 09/01/24 08:00 09/03/24 05:43 Metoclopramide Hcl 10 Mg/10 Ml Soln Udc FEED TUBE 10 mg Q6HR RHYS Administration Multi-Ingred Cream/Lotion/Oil/Oint 1 applic 08/30/24 10:20 09/03/24 08:19 Mineral Oil/White Petrolatum Ointment EACH EYE 1 applic Q12HR RHYS Administration Pantoprazole Sodium 40 mg 08/30/24 10:40 09/03/24 08:19 Pantoprazole Sodium Iv 40 Mg Vial IV PUSH 40 mg Q12HR RHYS Administration Prednisolone Acetate 1 drop 08/30/24 21:00 09/02/24 20:16 Prednisolone Acetate 1% Ophth 5 Ml RIGHT EYE 1 drop Q12HR RHYS Administration Sodium Chloride 10 ml 08/30/24 14:00 09/03/24 05:44 Central Line Flush IV PUSH 10 ml Q8HR RHYS Administration Sodium Chloride 10 ml 08/30/24 12:17 Central Line Flush IV PUSH PRN PRN with TPN bag changes Sodium Chloride 20 ml 08/30/24 12:17 Central Line Flush IV PUSH PRN PRN after blood draws Radiology Results: ITS Impressions Head CT 08/29/24 21:55 Impression: No acute intracranial hemorrhage or suspicious mass effect. Chest/Abdomen/Pelvis CT 08/29/24 21:57 IMPRESSION: Dense bilateral multifocal infiltrates, predominantly perihilar, as detailed above. No additional source is detected for patient's profound sepsis. Abdomen X-Ray 08/30/24 11:02 IMPRESSION: Bilateral pneumonia. Differential include pulmonary edema. Chest X-Ray 09/03/24 05:41 Impression: Diffuse bilateral pulmonary consolidation. Correlate for severe pulmonary edema, diffuse pneumonia, or ARDS. Support tubes, as above. Labs Labs: Laboratory Results - last 24 hr 09/02/24 09/02/24 09/02/24 06:47 09:58 12:05 WBC RBC Hgb Hct MCV MCH MCHC RDW Plt Count MPV Immature Gran % (Auto) Neut % (Auto) Lymph % (Auto) [place] % (Auto) Eos % (Auto) Baso % (Auto) Lymph # (Auto) [place] # (Auto) Eos # (Auto) Baso # (Auto) Abs Immat Gran (auto) Absolute Neuts (auto) Absolute Nucleated RBC Total Counted Neutrophils % (Manual) Band Neutrophils % Lymphocytes % (Manual) Monocytes % (Manual) Metamyelocytes % Myelocytes % Promyelocytes % (Man) Nucleated RBC % Abs Neuts (Manual) Abs Lymphs (Manual) Abs Monocytes (Manual) Smudge Cells Platelet Estimate Hypochromasia Poikilocytosis Anisocytosis Microcytosis Ovalocytes [place] Cells Schistocytes Puncture Site ABG pH ABG pCO2 ABG pO2 ABG PO2/FiO2 Ratio ABG HCO3 ABG O2 Saturation ABG O2 Content ABG Base Excess A-a Gradient Oxyhemoglobin Carboxyhemoglobin Methemoglobin Reduced Hemoglobin Total Hemoglobin O2 Delivery Device O2 Liters/Min Minute Volume Vent Rate Vent Mode FiO2 Tidal Volume PEEP Peak Inspir Pressure Pressure Support Sodium Potassium Chloride Carbon Dioxide Anion Gap BUN Creatinine Estim Creat Clear Calc Estimated GFR Glucose POC Capillary Glucose 97 102 Calcium Magnesium Total Bilirubin AST ALT Alkaline Phosphatase Total Protein Albumin Crossmatch See Detail 09/02/24 09/02/24 09/02/24 16:38 20:22 23:24 WBC RBC Hgb Hct MCV MCH MCHC RDW Plt Count MPV Immature Gran % (Auto) Neut % (Auto) Lymph % (Auto) [place] % (Auto) Eos % (Auto) Baso % (Auto) Lymph # (Auto) [place] # (Auto) Eos # (Auto) Baso # (Auto) Abs Immat Gran (auto) Absolute Neuts (auto) Absolute Nucleated RBC Total Counted Neutrophils % (Manual) Band Neutrophils % Lymphocytes % (Manual) Monocytes % (Manual) Metamyelocytes % Myelocytes % Promyelocytes % (Man) Nucleated RBC % Abs Neuts (Manual) Abs Lymphs (Manual) Abs Monocytes (Manual) Smudge Cells Platelet Estimate Hypochromasia Poikilocytosis Anisocytosis Microcytosis Ovalocytes [place] Cells Schistocytes Puncture Site ABG pH ABG pCO2 ABG pO2 ABG PO2/FiO2 Ratio ABG HCO3 ABG O2 Saturation ABG O2 Content ABG Base Excess A-a Gradient Oxyhemoglobin Carboxyhemoglobin Methemoglobin Reduced Hemoglobin Total Hemoglobin O2 Delivery Device O2 Liters/Min Minute Volume Vent Rate Vent Mode FiO2 Tidal Volume PEEP Peak Inspir Pressure Pressure Support Sodium Potassium Chloride Carbon Dioxide Anion Gap BUN Creatinine Estim Creat Clear Calc Estimated GFR Glucose POC Capillary Glucose 127 H 109 H 115 H Calcium Magnesium Total Bilirubin AST ALT Alkaline Phosphatase Total Protein Albumin Crossmatch 09/03/24 09/03/24 05:21 09:33 WBC 35.4 H RBC 2.57 L Hgb 7.7 L Hct 23.8 L MCV 92.6 MCH 30.0 MCHC 32.4 RDW 23.3 H Plt Count 110 L MPV 12.9 H Immature Gran % (Auto) Not Reportable Neut % (Auto) Not Reportable Lymph % (Auto) Not Reportable [place] % (Auto) Not Reportable Eos % (Auto) Not Reportable Baso % (Auto) Not Reportable Lymph # (Auto) Not Reportable [place] # (Auto) Not Reportable Eos # (Auto) Not Reportable Baso # (Auto) Not Reportable Abs Immat Gran (auto) Not Reportable Absolute Neuts (auto) Not Reportable Absolute Nucleated RBC Not Reportable Total Counted 100 Neutrophils % (Manual) 79 H Band Neutrophils % 4 Lymphocytes % (Manual) 12.0 L Monocytes % (Manual) 2 L Metamyelocytes % 1 Myelocytes % 1 Promyelocytes % (Man) 1 Nucleated RBC % Not Reportable Abs Neuts (Manual) 29.38 H Abs Lymphs (Manual) 4.24 Abs Monocytes (Manual) 0.70 Smudge Cells Few Platelet Estimate Decreased Hypochromasia 2+ Poikilocytosis 1+ Anisocytosis 1+ Microcytosis 1+ Ovalocytes 1+ Mary Cells 1+ Schistocytes Rare Puncture Site Right radial ABG pH 7.361 ABG pCO2 35.9 ABG pO2 55.2 L ABG PO2/FiO2 Ratio 0.92 ABG HCO3 19.9 L ABG O2 Saturation 87.9 L ABG O2 Content 10.0 L ABG Base Excess -5.0 A-a Gradient 333.1 Oxyhemoglobin 87.2 L* Carboxyhemoglobin 1.3 Methemoglobin 0.3 Reduced Hemoglobin 11.2 H Total Hemoglobin 8.1 L O2 Delivery Device Ventilator O2 Liters/Min Not Reportable Minute Volume Not Reportable Vent Rate 20 Vent Mode Cmv FiO2 60 Tidal Volume 370 PEEP 10 Peak Inspir Pressure Not Reportable Pressure Support Not Reportable Sodium 143 Potassium 4.3 Chloride 115 H Carbon Dioxide 18 L Anion Gap 10 BUN 60 H D Creatinine 0.94 Estim Creat Clear Calc 39 Estimated GFR 60 Glucose 98 POC Capillary Glucose 85 Calcium 11.0 H Magnesium 2.1 Total Bilirubin 0.5 AST 65 H ALT 27 Alkaline Phosphatase 82 Total Protein 5.2 L Albumin 3.1 L Crossmatch Quality VTE Prophylaxis VTE prophylaxis: pharmacologic ordered
[2024-09-03] MEDS: MIDAZOLAM 100MG/NS 100ML(*CRX) 100 MG/100 ML BAG 11 MG IV CONT ×2 (10:46→20:00)
[2024-09-03] MEDS: prednisoLONE ACETATE 1% OPHTH 5 ML 1 DROP RIGHT EYE ×2 (10:46→20:03)
--- NOTE | 2024-09-03 10:59 | PCFNICU ---
ICU Rounding Note: Pt current nutrition is Vital AF 1.2 at 20 ml/hr with Eldon BID. Last recorded weight is 60.1 kg, up from 50.1 kg on admit. Bowel Motility: Last reported BM 09/03 Labs Reviewed: BUN 60, PO4 2.0, Alb 3.1 Meds Noted: Reglan, Propofol 50 szvk=170 kcals, Protonix, Fentanyl, Versed. Skin: Stage III-coccyx. Additional Notes: Patient remains on mechanical vent. Tube feedings reported with elevated residuals over the weekend. Patient currently at 20 ml/hr Vital AF 1.2 and tolerating. Spoke with Scheme Technician today, no plans to advance tube feedings at this time. Total Nutrition: 930 kcal/33 gm protein/357 ml water. Flush 30 ml q 4 hours. Eldon BID for wound healing providng an additional 80 kcal/2.5 gm protein/7 gm arginine/7 gm glutamine. Following daily in ICU rounds. Monitoring tube feeding orders, weights, labs, tolerance, plan of care, vent settings, vitals Follow up Tuesday/Tuesday.
[2024-09-03] MEDS: CISATRACURIUM BESYLATE 200 MG in SODIUM CHLORIDE 0.9% IV 80 ML 5.41 ML IV CONT (11:22)
[2024-09-03] MEDS: PROPOFOL IV EMULSION 100 ML 13.69 MG IV CONT ×3 (11:38→23:49)
[2024-09-03] MEDS: ENOXAPARIN 60 MG/0.6 ML SYRINGE SUB-Q ×2 (11:40→22:42)
[2024-09-03] MEDS: FENTANYL 2,500MCG/NS250ML(*CRX 2,500 MCG/250 ML BAG 22.5 MCG IV CONT ×2 (11:55→22:41)
[2024-09-03] MEDS: levoFLOXacin 750 MG/D5W 150 ML 750 MG/150 ML BAG 100 MG IVPB (13:31)
[2024-09-03 14:48] LABS: NIL 1.42 IU/mL; Quantiferon TB Plus, 1T NEGATIVE (NEGATIVE); TB1-NIL 0.03 IU/mL; TB2-NIL <0.00 IU/mL
[2024-09-03 16:36] LABS: Alveolar/Arterial O2 Gradient 347.5 mmHg; Fractional Inspired Oxygen 65 %; HCO3 ABG 20.2 mEq/l (22.0-26.0); Oxygen Content ABG 10.9 %vol (16.0-22.0); PCO2 ABG 53.0 mmHg (35.0-45.0); PO2 ABG 58.3 mmHg (80.0-100.0); PO2 FiO2 Ratio Arterial Blood 0.90 %
[2024-09-03 17:20] LABS: Anion Gap 8 mmol/L (4-12); Blood Urea Nitrogen 66 mg/dL (7-17); Calcium 10.3 mg/dL (8.4-10.2); Carbon Dioxide 20 mmol/L (22-30); Chloride 113 mmol/L (98-107); Estimated CRCL calculation 38 ml/min; Estimated Glomerular Filt Rate 58; Glucose 100 mg/dL (65-110); Potassium 4.1 mmol/L (3.4-5.0); Sodium 141 mmol/L (137-145)
[2024-09-04] VITALS (47 sets, daily range): BP systolic 91–142; BP diastolic 50–90; PULSE 88–136; RESP 24–30; TEMP 35.9–37.2; O2SAT 90–97
[2024-09-04 03:32] LABS: Hematocrit 26.9 % (37.0-47.0); Hemoglobin 8.6 g/dL (12.0-15.0); Mean Corpuscular HGB Conc 32.0 g/dl (32-36); Mean Corpuscular Hemoglobin 30.1 pg (26-34); Mean Corpuscular Volume 94.1 fl (80-100); Platelet Count Result 184 k/mm3 (150-375); Red Blood Count 2.86 M/mm3 (4.2-5.4); White Blood Count 46.7 K/mm3 (4.5-10.0)
[2024-09-04 03:42] LABS: Potassium 3.9 mmol/L (3.4-5.0)
[2024-09-04 03:43] LABS: Alanine Aminotransferase 26 U/L (6-35); Albumin Level 2.8 g/dL (3.5-5.1); Alkaline Phosphatase 105 U/L (38-126); Anion Gap 9 mmol/L (4-12); Aspartate Amino Transferase 76 U/L (14-36); Bilirubin,Total 0.3 mg/dL (0.2-1.3); Blood Urea Nitrogen 81 mg/dL (7-17); Calcium 11.3 mg/dL (8.4-10.2); Carbon Dioxide 21 mmol/L (22-30); Chloride 115 mmol/L (98-107); Estimated CRCL calculation 32 ml/min; Estimated Glomerular Filt Rate 46; Glucose 96 mg/dL (65-110); Magnesium 2.2 mg/dL (1.6-2.3); Sodium 145 mmol/L (137-145); Total Protein 5.1 g/dL (6.3-8.2)
[2024-09-04 04:01] LABS: Band Neutrophils Percent 12 % (0-6); Eosinophils Absolute Manual 0.46 K/mm3 (0.02-0.50); Eosinophils Percent Manual 1 % (0-4); Lymphocytes Absolute Manual 7.00 K/mm3 (1.1-4.5); Lymphocytes Percent Manual 15.0 % (18-44); Monocytes Absolute Manual 1.86 K/mm3 (0.1-0.90); Monocytes Percent Manual 4 % (3-9); Neutrophils Absolute Manual 37.36 K/mm3 (1.3-6.7); Neutrophils Percent Manual 68 % (46-73); Total Cells Counted 100
[2024-09-04 04:02] LABS: Anisocytosis 1+; Poikilocytosis 1+; Schistocytes Rare; Smudge Cells PRESENT; Tear Drop Cells 1+
[2024-09-04] MEDS: METOCLOPRAMIDE HCL 10 MG/10 ML SOLN UDC FEED TUBE ×3 (05:06→17:15)
[2024-09-04] MEDS: MIDAZOLAM 100MG/NS 100ML(*CRX) 100 MG/100 ML BAG 11 MG IV CONT ×2 (05:07→15:39)
[2024-09-04] MEDS: CENTRAL LINE FLUSH 10 ML IV PUSH ×4 (05:07→21:46)
[2024-09-04 05:14] LABS: Alveolar/Arterial O2 Gradient 288.1 mmHg; Carboxyhemoglobin 0.5 % THb (0-2.0); Fractional Inspired Oxygen 65 %; HCO3 ABG 20.1 mEq/l (22.0-26.0); Methemoglobin ABG 0.1 %THb (0-1.5); Oxygen Content ABG 12.9 %vol (16.0-22.0); Oxygen Saturation ABG 97.0 % (95.0-100.0); PCO2 ABG 55.6 mmHg (35.0-45.0); PO2 ABG 114.9 mmHg (80.0-100.0); PO2 FiO2 Ratio Arterial Blood 1.77 %; Reduced Hemoglobin 2.4 %THb (0-5.0)
[2024-09-04 05:22] LABS: Modified Allen's Test Pass; Site Drawn RIGHT RADIAL
[2024-09-04 05:23] LABS: Arterial Blood Gas Tidal Volume 370 ml; Arterial Blood Gas Ventilator rate 24 /MIN
[2024-09-04] MEDS: SODIUM BICARBONATE 8.4% 50 MEQ/50 ML SYRINGE 100 MEQ IV PUSH (05:37)
[2024-09-04] MEDS: METOPROLOL TARTRATE INJ 5 MG/5 ML VIAL IV PUSH (05:38)
[2024-09-04] MEDS: ACYCLOVIR 200 MG CAPSULE 400 MG FEED TUBE ×3 (05:42→21:19)
[2024-09-04] MEDS: PROPOFOL IV EMULSION 100 ML 18.42 MG IV CONT ×2 (06:22→11:17)
[2024-09-04] MEDS: CISATRACURIUM BESYLATE 200 MG in SODIUM CHLORIDE 0.9% IV 80 ML IV CONT (06:23)
[2024-09-04] MEDS: HYDROCORTISONE SODIUM SUCCINATE 100 MG/2 ML VIAL 20 MG IV PUSH (08:07)
[2024-09-04] MEDS: PANTOPRAZOLE SODIUM IV 40 MG VIAL IV PUSH ×2 (08:08→20:11)
[2024-09-04] MEDS: CEFEPIME 2 GM/NS 50 ML 2 GM/50 ML BAG IVPB ×2 (08:08→20:15)
[2024-09-04] MEDS: prednisoLONE ACETATE 1% OPHTH 5 ML 1 DROP RIGHT EYE ×2 (08:09→20:09)
[2024-09-04] MEDS: MINERAL OIL/WHITE PETROLATUM OINTMENT 1 APPLIC EACH EYE ×2 (08:10→20:09)
[2024-09-04] MEDS: FENTANYL 2,500MCG/NS250ML(*CRX 2,500 MCG/250 ML BAG 22.5 MCG IV CONT ×2 (09:48→21:12)
--- NOTE | 2024-09-04 10:47 | PCNFU ---
Nutrition Follow-Up Complete: Increased energy expenditure related to severe sepsis, mechanical ventilation as evidenced by need for tube feeding ~70% EER. Goal: Meet estimated nutrition needs Patient has limited progress towards goal. We will continue current goal. Pt current nutrition is Vital AF 1.2 at 20 ml/hr. Last recorded weight is 61.4 kg, up from 50.1 kg on admit. Bowel Motility: FMS Labs Reviewed: BUN 81, PO4 2.0 Meds Noted: Protonix, Reglan, Nimbex, Propofol 50 yfue=916 kcals, Fentanyl, Versed. Skin: Stage 3 pressure ulcer-coccyx. Additional Notes: Pateint remains on mechanical vent. Tube feedings currently at 20 ml/hr. Patient proned. Plans for central line and art line today. Total Nutrition: 1090 kcal/33 gm protein/357 ml water. Flush 30 ml q 4 hours. Eldon flush BID for wound healing. Monitoring tube feeding orders, weights, labs, tolerance, plan of care, vent settings, vitals Follow up Tuesday/Tuesday. Daily rounds
--- NOTE | 2024-09-04 10:53 | PCNFU ---
Nutrition Follow-Up Complete: Increased energy expenditure related to severe sepsis, mechanical ventilation as evidenced by need for tube feeding ~70% EER. goal: Meet estimated nutrition needs Patient is progressing towards goal. We will continue current goal. Pt current nutrition is Jevity 1.5 at 55 ml/hr. Last recorded weight is 61.4 kg, down from 66 kg. Bowel Motility: FMS Labs Reviewed: Glu 117, Cr 0.638, Alb 3.1 Meds Noted:NS, Folic Acid, Rocephin, Lovenox, Protonix, Thiamine, D5 Skin:WNL Additional Notes: Patient had tube feeding formula change to Jevity 1.5 at 55 ml/hr. Flush 30 ml q 4 hours. Spoke with nursing today, patient having tube feeding coming out of rectal tube. Surgery is aware. We will continue to monitor for further nutritional interventions. Monitoring tube feeding orders, weights, labs, tolerance, plan of care, vent settings, vitals Follow up Tuesday/Tuesday.
--- NOTE | 2024-09-04 11:16 | P.PNINT_ITS ---
Progress Note: A&P Assessment and Plan (1) Acute respiratory failure: Code(s): J96.00 - Acute respiratory failure, unspecified whether with hypoxia or hypercapnia Status: Acute Assessment and Plan: Acute respiratory failure and sepsis secondary to bilateral Pseudomonas pneumonia in an immunocompromised patient who was on methotrexate and hydroxychloroquine. -ARDS physiology -08/30: Intubated for tachypnea, tachycardia, respiratory distress 08/31: bronchoscopy which did not show any LR hemorrhage or tracheobronchitis 08/31: BAL culture is growing Pseudomonas which is pansensitive. Also Milagros glabrata -continue cefepime and Levaquin. Vancomycin discontinued -08/29: Blood culture negative -08/20: sputum culture negative PCR for influenza RSV and COVID was negative Urine Legionella negative and pneumococcal antigen negative Negative Mycoplasma IgM Continue hydrocortisone but will decrease dose as patient was on chronic low- dose prednisone -09/04: Patient all of placed in prone position due to increased oxygen requirements secondary to ARDS and Pseudomonas pneumonia. Patient was also paralyzed with rocuronium and started on Nimbex infusion for ventilator synchrony 09/05: ABGs reviewed, ventilator adjusted. Patient will be placed in supine position since has been 24 hours, will also place arterial line and a central line. Sedated with fentanyl, Versed, propofol infusion. Also on Nimbex infusion for ventilator synchrony 08/29 CT Chest Dense bilateral multifocal infiltrates, predominantly perihilar, as detailed above. No additional source is detected for patient's profound sepsis (2) Gastroesophageal reflux disease: Qualifiers: Esophagitis presence: esophagitis presence not specified Qualified Code(s): K21.9 - Gastro-esophageal reflux disease without esophagitis Code(s): K21.9 - Gastro-esophageal reflux disease without esophagitis Status: Acute Assessment and Plan: PPI q.12 hours (3) FRANK (acute kidney injury): Code(s): N17.9 - Acute kidney failure, unspecified Status: Acute Assessment and Plan: Patient presented with elevated creatinine which was likely secondary to sepsis. Creatinine improved with IV fluids Cut down on further IV fluids and patient was given IV fluids Urine output improved. Patient was given Lasix yesterday to prevent volume overload 09/02 Overnight creatinine has slightly increased again Hold diuretics. 25% albumin was given 09/03 creatinine improved and states in normal range Will try to maintain map above 65 mmHg Monitor urine output electrolytes and creatinine Status post IV Lasix with adequate urine output, [place] catheter for accurate I&Os (4) Sepsis: Qualifiers: Sepsis acute organ dysfunction status: with acute organ dysfunction Sepsis type: sepsis due to unspecified organism Severe sepsis acute organ dysfunction type: encephalopathy Severe sepsis shock status: without septic shock Qualified Code(s): A41.9 - Sepsis, unspecified organism; R65.20 - Severe sepsis without septic shock; G93.41 - Metabolic encephalopathy Code(s): A41.9 - Sepsis, unspecified organism Status: Acute Assessment and Plan: See above (5) Immunosuppressed status: Code(s): D89.9 - Disorder involving the immune mechanism, unspecified Status: Acute Assessment and Plan: See above (6) Rheumatoid arthritis: Code(s): M06.9 - Rheumatoid arthritis, unspecified Status: Acute Assessment and Plan: Hold methotrexate and hydroxychloroquine (7) Toxic metabolic encephalopathy: Code(s): G92.8 - Other toxic encephalopathy Status: Acute Assessment and Plan: Patient presented with altered mental status and confusion which appears to be encephalopathy ache. Patient has sepsis and was on several medication including tramadol and benzodiazepine at home Patient appears much more awake and alert this morning before intubation and is now oriented x [address] was negative TSH was normal Patient obviously now sedated and intubated. Patient has been on benzodiazepine and pain medications chronically and requiring significant amount of medications to keep her sedated (8) Pneumonia: Qualifiers: Laterality: bilateral Lung location: unspecified part of lung Pneumonia type: due to unspecified organism Qualified Code(s): J18.9 - Pneumonia, unspecified organism Code(s): J18.9 - Pneumonia, unspecified organism Status: Acute Assessment and Plan: See above (9) Urinary tract infection: Qualifiers: Hematuria presence: with hematuria Urinary tract infection type: site unspecified Qualified Code(s): N39.0 - Urinary tract infection, site not specified; R31.9 - Hematuria, unspecified Code(s): N39.0 - Urinary tract infection, site not specified Status: Acute Assessment and Plan: UA suggestive of UTI Cultures ordered On broad-spectrum antibiotics (10) Herpes labialis: Code(s): B00.1 - Herpesviral vesicular dermatitis Status: Acute Assessment and Plan: Continue acyclovir through tube (11) Hypoglycemia: Code(s): E16.2 - Hypoglycemia, unspecified Status: Acute Assessment and Plan: Patient had couple episodes of hypoglycemia early in the course. Patient is on D5 half-normal saline along with tube feeds. To consult fluid I will change flushes to D5 water and changed infusion to D10 Blood glucose is now improved and D10 has been weaned off (12) Ileus: Code(s): K56.7 - Ileus, unspecified Status: Acute Assessment and Plan: Although bowel sounds are present patient has not been tolerating tube feeds with very high residuals. Tube feeds were held yesterday for multiple hours but residuals remain high. I will attach OG tube to suction to empty the stomach and restart tube feeds at a low rate of 20 mL/hour. Patient is already on Reglan. Patient may need post pyloric tube feeding at this time respiratory status does not allow transferred to radiology. Will continue tube feeds at low rate at 20 mL -patient also on propofol, will continue tube feed rate at 20 mL/hour (13) Peripheral ischemia: Code(s): I99.8 - Other disorder of circulatory system Status: Acute Assessment and Plan: Patient has developed mottling of all 10 fingers. She also has mottling of her toes The bilateral in systemic presentation suggest against vascular clot, likely related to septic emboli Radial pulses are dopplerable and staff was able to palpated Blood pressure is adequate Monitor maintain mean arterial pressure above 65 (14) Swelling of both upper extremities: Code(s): M79.89 - Other specified soft tissue disorders Status: Acute Assessment and Plan: Likely secondary to edema as it is bilateral 09/03: Bilateral upper extremity venous Doppler showed extensive deep and superficial venous thrombosis throughout the bilateral upper extremities -started on therapeutic Lovenox IV q.12 hours Plan DVT prophylaxis -therapeutic Lovenox Stress ulcer prophylaxis -Protonix Nutrition -continue tube feeds at low rate. Continue Reglan Code Status - DNR Total Critical Care Time - 39 minutes Discussed with patient's , son and [id number], son is the POA. Updated them with patient's condition, plan of care. I explained to them that she has severe Pseudomonas pneumonia, possible septic emboli of her digits on her hand bilaterally. Patient is in prone position, will be placing her in supine position and will place a central line and arterial line to which they are agreeable. I also discussed with them code status and the p.o. has made her DNR. Due to a high probability of clinically significant, life threatening deterioration, the patient required my highest level of preparedness to intervene emergently and I personally spent this critical care time directly and personally managing the patient. This critical care time included obtaining a history; examining the patient; pulse oximetry; ordering and review of studies; arranging urgent treatment with development of a management plan; evaluation of patient's response to treatment; frequent reassessment; and discussions with other providers. It was exclusive of separately billable procedures and treating other patients and teaching time. Please see Assessment and Plan section and the rest of the note for further information on patient assessment and treatment Subjective Date/time seen: 09/04/24 11:16 Interval history: 68-year-old with a history of rheumatoid arthritis, Crohn's, on immunosuppre ssive medications, GERD admitted to ICU for pneumonia and respiratory failure requiring intubation and mechanical ventilation Reason for consult: Acute respiratory failure, ARDS physiology, sepsis, encephalopathy, pneumonia, herpes labialis, hyperglycemia, ileus, bilateral upper extremity DVTs 09/04/2024: Patient seen and examined the ICU, remains intubated on CMV mode of ventilation, peep of 15, 60% FiO2. Patient is in prone position. Sedated with fentanyl, Versed, propofol infusions. Patient also on Nimbex for ventilator synchrony. On tube feeds at 20 mL/hour and tolerating this. Discoloration of all the fingers bilaterally Review of Systems Review of Systems: ROS unobtainable: Yes unobtainable due to endotracheal tube, unobtainable due to medical condition and unobtainable due to mental status Exam Narrative: General: Pt is now sedated, intubated, in prone position Lungs/Chest: Coarse breath sounds bilaterally, decreased at bases, no wheezing Cardiac: Tachycardia RRR. Normal S1 S2. No murmurs Circulation: Bilateral radial pulses and bilateral pedal pulses and palpable, Abdomen: Decreased bowel sounds. Soft. NT. ND. Extremities: Warm edema of both arms right more than left with some weeping : [place] in place Neurologic: Prior to intubation patient was AO x3 and was moving all 4 extremities, PERRL now sedated and intubated, paralyzed Skin: 08/30 edema with breakdown of the skin which appears to be popped blisters on right labia. Patient was examined in the presence of female television production assistant She also has several scabbed wounds on her both legs which are in various healing stage but no open or infected wound. All 10 fingers are discolored. Patient also has mottling of toes but it is less as compared to her fingers. Both radial pulses are Dopplerable Objective Data Vital Signs Vital Signs: Vital Signs - 24 hr 09/03/24 11:20 09/03/24 11:22 09/03/24 11:38 Temperature Pulse Rate 114 H 123 H Respiratory Rate 20 20 Blood Pressure 121/80 Pulse Oximetry Oxygen Delivery Mechanical Ventilation Fraction of Inspired Oxygen 80 09/03/24 11:38 09/03/24 11:55 09/03/24 11:55 Temperature Pulse Rate 123 H 125 H 125 H Respiratory Rate 20 20 20 Blood Pressure Pulse Oximetry Oxygen Delivery Fraction of Inspired Oxygen 09/03/24 11:57 09/03/24 12:00 09/03/24 12:00 Temperature Pulse Rate 124 H 124 H 124 H Respiratory Rate 20 20 20 Blood Pressure 126/77 Pulse Oximetry Oxygen Delivery Fraction of Inspired Oxygen 09/03/24 12:00 09/03/24 12:00 09/03/24 12:00 Temperature 97.9 F Pulse Rate 124 H 124 H 124 H Respiratory Rate 20 20 Blood Pressure 116/77 Pulse Oximetry 97 Oxygen Delivery Fraction of Inspired Oxygen 09/03/24 12:00 09/03/24 12:00 09/03/24 13:00 Temperature Pulse Rate 126 H 127 H Respiratory Rate 20 20 Blood Pressure Pulse Oximetry 97 Oxygen Delivery Mechanical Ventilation Fraction of Inspired Oxygen 80 09/03/24 13:49 09/03/24 14:00 09/03/24 14:00 Temperature Pulse Rate 124 H 125 H 125 H Respiratory Rate 20 20 20 Blood Pressure 117/76 Pulse Oximetry Oxygen Delivery Fraction of Inspired Oxygen 09/03/24 14:00 09/03/24 14:00 09/03/24 14:00 Temperature Pulse Rate 125 H 121 H 125 H Respiratory Rate 20 20 Blood Pressure 119/77 Pulse Oximetry 97 Oxygen Delivery Fraction of Inspired Oxygen 09/03/24 14:06 09/03/24 14:10 09/03/24 16:00 Temperature Pulse Rate 125 H 127 H 127 H Respiratory Rate 20 20 Blood Pressure 119/77 Pulse Oximetry 97 Oxygen Delivery Mechanical Ventilation Fraction of Inspired Oxygen 70 09/03/24 16:00 09/03/24 16:00 09/03/24 16:00 Temperature Pulse Rate 127 H 127 H 127 H Respiratory Rate 20 20 Blood Pressure Pulse Oximetry Oxygen Delivery Fraction of Inspired Oxygen 09/03/24 16:00 09/03/24 16:00 09/03/24 16:00 Temperature Pulse Rate 125 H 122 H Respiratory Rate 20 20 Blood Pressure 114/73 Pulse Oximetry 96 98 Oxygen Delivery Mechanical Ventilation Fraction of Inspired Oxygen 70 09/03/24 16:00 09/03/24 16:50 09/03/24 17:00 Temperature Pulse Rate 124 H 124 H 121 H Respiratory Rate 20 24 H Blood Pressure 114/73 109/75 Pulse Oximetry 97 Oxygen Delivery Mechanical Ventilation Fraction of Inspired Oxygen 65 09/03/24 17:09 09/03/24 17:09 09/03/24 18:00 Temperature Pulse Rate 120 H 120 H 114 H Respiratory Rate 24 H 24 H Blood Pressure Pulse Oximetry Oxygen Delivery Fraction of Inspired Oxygen 09/03/24 18:00 09/03/24 18:00 09/03/24 18:00 Temperature Pulse Rate 114 H 113 H 113 H Respiratory Rate 24 H 24 H 24 H Blood Pressure 102/64 Pulse Oximetry 95 Oxygen Delivery Fraction of Inspired Oxygen 09/03/24 18:00 09/03/24 18:00 09/03/24 18:31 Temperature Pulse Rate 113 H 113 H 113 H Respiratory Rate 24 H 24 H 24 H Blood Pressure 102/64 110/75 Pulse Oximetry Oxygen Delivery Fraction of Inspired Oxygen 09/03/24 19:45 09/03/24 20:00 09/03/24 20:00 Temperature Pulse Rate 110 H 109 H 109 H Respiratory Rate 24 H 24 H Blood Pressure Pulse Oximetry 96 Oxygen Delivery Mechanical Ventilation Fraction of Inspired Oxygen 65 09/03/24 20:00 09/03/24 20:00 09/03/24 20:00 Temperature 98.9 F Pulse Rate 109 H 109 H Respiratory Rate 24 H 24 H Blood Pressure 112/70 Pulse Oximetry 96 Oxygen Delivery Fraction of Inspired Oxygen 65 09/03/24 20:00 09/03/24 20:00 09/03/24 20:00 Temperature Pulse Rate 109 H 109 H Respiratory Rate 24 H 24 H Blood Pressure 112/70 Pulse Oximetry Oxygen Delivery Mechanical Ventilation Fraction of Inspired Oxygen 09/03/24 20:00 09/03/24 22:00 09/03/24 22:00 Temperature Pulse Rate 109 H 105 H 105 H Respiratory Rate 24 H Blood Pressure 116/72 Pulse Oximetry 95 Oxygen Delivery Fraction of Inspired Oxygen 09/03/24 22:00 09/03/24 22:00 09/03/24 22:00 Temperature Pulse Rate 105 H 105 H 105 H Respiratory Rate 24 H 24 H 24 H Blood Pressure Pulse Oximetry Oxygen Delivery Fraction of Inspired Oxygen 09/03/24 22:00 09/03/24 22:41 09/03/24 22:41 Temperature Pulse Rate 105 H 108 H 108 H Respiratory Rate 24 H 24 H 24 H Blood Pressure 116/72 Pulse Oximetry Oxygen Delivery Fraction of Inspired Oxygen 09/03/24 22:58 09/03/24 23:49 09/03/24 23:49 Temperature Pulse Rate 111 H 113 H 113 H Respiratory Rate 24 H 24 H Blood Pressure Pulse Oximetry 96 Oxygen Delivery Mechanical Ventilation Fraction of Inspired Oxygen 65 09/04/24 00:00 09/04/24 00:00 09/04/24 00:00 Temperature 98.3 F Pulse Rate 114 H 114 H Respiratory Rate 24 H 24 H Blood Pressure 114/72 Pulse Oximetry 94 Oxygen Delivery Fraction of Inspired Oxygen 65 09/04/24 00:00 09/04/24 00:00 09/04/24 00:00 Temperature Pulse Rate 114 H 114 H 114 H Respiratory Rate 24 H 24 H 24 H Blood Pressure 114/72 Pulse Oximetry Oxygen Delivery Fraction of Inspired Oxygen 09/04/24 00:00 09/04/24 00:00 09/04/24 00:15 Temperature Pulse Rate 115 H 115 H Respiratory Rate 24 H Blood Pressure 120/75 Pulse Oximetry Oxygen Delivery Mechanical Ventilation Fraction of Inspired Oxygen 09/04/24 02:00 09/04/24 02:00 09/04/24 02:00 Temperature Pulse Rate 124 H 124 H 124 H Respiratory Rate 24 H 24 H 24 H Blood Pressure 132/82 Pulse Oximetry Oxygen Delivery Fraction of Inspired Oxygen 09/04/24 02:00 09/04/24 02:00 09/04/24 02:00 Temperature Pulse Rate 124 H 124 H 124 H Respiratory Rate 24 H 24 H Blood Pressure 132/82 Pulse Oximetry 94 Oxygen Delivery Fraction of Inspired Oxygen 09/04/24 02:15 09/04/24 02:50 09/04/24 03:00 Temperature Pulse Rate 131 H 126 H 136 H Respiratory Rate 24 H 24 H Blood Pressure 132/79 Pulse Oximetry 94 Oxygen Delivery Mechanical Ventilation Fraction of Inspired Oxygen 65 09/04/24 04:00 09/04/24 04:00 09/04/24 04:00 Temperature Pulse Rate 136 H 136 H 136 H Respiratory Rate 24 H 24 H 24 H Blood Pressure Pulse Oximetry Oxygen Delivery Fraction of Inspired Oxygen 09/04/24 04:00 09/04/24 04:00 09/04/24 04:00 Temperature 98.1 F Pulse Rate 136 H 136 H Respiratory Rate 24 H 24 H Blood Pressure 122/73 122/73 Pulse Oximetry 94 Oxygen Delivery Fraction of Inspired Oxygen 65 09/04/24 04:00 09/04/24 04:00 09/04/24 04:55 Temperature Pulse Rate 136 H 136 H Respiratory Rate Blood Pressure Pulse Oximetry 94 Oxygen Delivery Mechanical Ventilation Mechanical Ventilation Fraction of Inspired Oxygen 65 09/04/24 05:07 09/04/24 05:07 09/04/24 05:37 Temperature Pulse Rate 135 H 135 H 136 H Respiratory Rate 24 H 24 H 24 H Blood Pressure Pulse Oximetry Oxygen Delivery Fraction of Inspired Oxygen 09/04/24 05:38 09/04/24 05:57 09/04/24 06:00 Temperature Pulse Rate 136 H 109 H Respiratory Rate 24 H Blood Pressure 118/76 Pulse Oximetry 93 Oxygen Delivery Fraction of Inspired Oxygen 60 09/04/24 06:00 09/04/24 06:00 09/04/24 06:00 Temperature Pulse Rate 109 H 109 H 109 H Respiratory Rate 24 H 24 H Blood Pressure Pulse Oximetry Oxygen Delivery Fraction of Inspired Oxygen 09/04/24 06:00 09/04/24 06:00 09/04/24 06:22 Temperature Pulse Rate 109 H 109 H 111 H Respiratory Rate 24 H 24 H 24 H Blood Pressure 118/76 Pulse Oximetry Oxygen Delivery Fraction of Inspired Oxygen 09/04/24 06:22 09/04/24 06:23 09/04/24 06:23 Temperature Pulse Rate 111 H 111 H 111 H Respiratory Rate 24 H 24 H 24 H Blood Pressure 126/90 126/90 Pulse Oximetry Oxygen Delivery Fraction of Inspired Oxygen 09/04/24 07:59 09/04/24 08:00 09/04/24 08:00 Temperature Pulse Rate 113 H 113 H 113 H Respiratory Rate 24 H 24 H 24 H Blood Pressure 107/71 Pulse Oximetry Oxygen Delivery Fraction of Inspired Oxygen 09/04/24 08:00 09/04/24 08:00 09/04/24 08:00 Temperature 99.0 F Pulse Rate 113 H 113 H 109 H Respiratory Rate 24 H 24 H 24 H Blood Pressure 107/72 Pulse Oximetry 97 95 Oxygen Delivery Mechanical Ventilation Fraction of Inspired Oxygen 60 09/04/24 08:00 09/04/24 08:00 09/04/24 09:03 Temperature Pulse Rate 113 H 109 H Respiratory Rate Blood Pressure Pulse Oximetry 95 Oxygen Delivery Mechanical Ventilation Fraction of Inspired Oxygen 60 60 09/04/24 09:48 09/04/24 09:48 09/04/24 10:00 Temperature 98.9 F Pulse Rate 112 H 112 H 114 H Respiratory Rate 30 H 30 H 30 H Blood Pressure 109/73 Pulse Oximetry 96 Oxygen Delivery Fraction of Inspired Oxygen 09/04/24 10:00 Temperature Pulse Rate 114 H Respiratory Rate Blood Pressure Pulse Oximetry Oxygen Delivery Fraction of Inspired Oxygen Intake/Output Intake/Output: Intake & Output 09/01/24 09/02/24 09/03/24 09/04/24 23:59 23:59 23:59 23:59 Intake Total 3387.6 2328.4 2114.5 901.6 Output Total 525 1150 1850 550 Balance 2862.6 1178.4 264.5 351.6 Meds/Results Medications: Active Medications Generic Name Dose Route Start Last Admin Trade Name Freq PRN Reason Stop Dose Admin Acetaminophen 650 mg 08/29/24 18:17 Acetaminophen 325 Mg Tablet PO Q4H PRN Mild Pain (1-3) or Fever Acetaminophen 650 mg 08/30/24 00:43 08/30/24 06:56 Acetaminophen 650 Mg Suppository RECTAL 650 mg Q6H PRN Administration Mild Pain (1-3) or Fever Acyclovir 400 mg 08/30/24 14:00 09/04/24 05:42 Acyclovir 200 Mg Capsule FEED TUBE 09/09/24 06:01 400 mg Q8HR RHYS Administration Dextrose 12.5 gm 08/29/24 20:42 08/31/24 20:55 Dextrose 50% 25 Gm/50 Ml Syringe IV PUSH 12.5 gm PRN PRN Administration Hypoglycemia Protocol Enoxaparin Sodium 60 mg 09/03/24 11:35 09/03/24 22:42 Enoxaparin 60 Mg/0.6 Ml Syringe SUB-Q 60 mg Q12H RHYS Administration Glucagon 1 mg 08/29/24 20:42 Glucagon For Inj 1 Mg Vial IM PRN PRN Hypoglycemia Protocol Glucose 15 gm 08/29/24 20:42 Glucose Oral Gel 15 Gm Of Glucse In 37.5 Gm Tube PO PRN PRN Hypoglycemia Protocol Hydrocortisone Sodium Succinate 20 mg 09/03/24 09:00 09/04/24 08:07 Hydrocortisone Sodium Succinate 100 Mg/2 Ml Vial IV PUSH 20 mg QAM RHYS Administration Dextrose 1,000 mls @ 100 mls/hr 08/29/24 20:42 Dextrose 5% 1,000 Ml IVPB PRN PRN Hypoglycemia Protocol Cefepime HCl 2 gm in 50 mls @ 100 mls/hr 08/30/24 10:00 09/04/24 08:52 Maxipime 2 Gm/Ns 50 Ml IVPB Infused Q12HR RHYS Infusion Fentanyl Citrate 2,500 mcg in 250 mls @ 22.5 mls/hr 08/30/24 10:20 09/04/24 09:48 Fentanyl 2,500 Mcg/Ns 250 Ml IV CONT 225 mcg/hr .Q11H7M RHYS 22.5 mls/hr Administration Protocol 225 MCG/HR Midazolam HCl 100 mg in 100 mls @ 11 mls/hr 08/30/24 10:20 09/04/24 08:00 Versed 100 Mg/Ns 100 Ml IV CONT 11 mg/hr .Q9H6M RHYS 11 mls/hr Titration Protocol 11 MG/HR Propofol 100 mls @ 18.42 mls/hr 08/31/24 08:30 09/04/24 08:00 Diprivan IV CONT 50 mcg/kg/min .Q5H26M RHYS 18.42 mls/hr Titration Protocol 50 MCG/KG/MIN Cisatracurium Besylate 200 mg/ 100 mls @ 4.508 mls/hr 09/03/24 10:45 09/04/24 07:59 Sodium Chloride IV CONT 2.5 mcg/kg/min .[id number] RHYS 4.51 mls/hr Titration Protocol 2.5 MCG/KG/MIN Micafungin Sodium 100 mg/ 100 mls @ 100 mls/hr 09/04/24 10:20 Sodium Chloride IVPB DAILY RHYS Levofloxacin/Dextrose 750 mg in 150 mls @ 100 mls/hr 09/05/24 09:00 Levaquin 750 Mg/D5w 150 Ml IVPB Q48H ON LICENSE OF [facility] Insulin Aspart 3 - 6 units 08/31/24 16:39 09/04/24 09:00 Insulin Aspart (*Bkc) 100 Units/Ml SUB-Q Not Given Q4HR ON LICENSE OF [facility] Protocol Metoclopramide HCl 10 mg 09/01/24 08:00 09/04/24 05:06 Metoclopramide Hcl 10 Mg/10 Ml Soln Udc FEED TUBE 10 mg Q6HR RHYS Administration Multi-Ingred Cream/Lotion/Oil/Oint 1 applic 08/30/24 10:20 09/04/24 08:10 Mineral Oil/White Petrolatum Ointment EACH EYE 1 applic Q12HR RHYS Administration Pantoprazole Sodium 40 mg 08/30/24 10:40 09/04/24 08:08 Pantoprazole Sodium Iv 40 Mg Vial IV PUSH 40 mg Q12HR RHYS Administration Prednisolone Acetate 1 drop 08/30/24 21:00 09/04/24 08:09 Prednisolone Acetate 1% Ophth 5 Ml RIGHT EYE 1 drop Q12HR RHYS Administration Sodium Chloride 10 ml 08/30/24 14:00 09/04/24 05:07 Central Line Flush IV PUSH 10 ml Q8HR RHYS Administration Sodium Chloride 10 ml 08/30/24 12:17 Central Line Flush IV PUSH PRN PRN with TPN bag changes Sodium Chloride 20 ml 08/30/24 12:17 Central Line Flush IV PUSH PRN PRN after blood draws Radiology Results: ITS Impressions Head CT 08/29/24 21:55 Impression: No acute intracranial hemorrhage or suspicious mass effect. Chest/Abdomen/Pelvis CT 08/29/24 21:57 IMPRESSION: Dense bilateral multifocal infiltrates, predominantly perihilar, as detailed above. No additional source is detected for patient's profound sepsis. Abdomen X-Ray 08/30/24 11:02 IMPRESSION: Bilateral pneumonia. Differential include pulmonary edema. Venous Doppler Study 09/03/24 10:50 IMPRESSION: 1. Extensive deep and superficial venous thrombosis throughout the bilateral upper lungs as detailed above. Findings were discussed with Jacinto Victor, the nurse caring for the patient, at 10:59 AM. ADDENDUM: 09/03/24 1400 CORRECTION: There is a dictation error in the impression section. With the correction capitalized this should read- Extensive deep and superficial venous thrombosis throughout the bilateral upper LIMBS as detailed above. Chest X-Ray 09/04/24 05:34 Impression: Stable diffuse pulmonary disease. Stable support tubes. Labs Labs: Laboratory Results - last 24 hr 08/30/24 08/30/24 09/03/24 15:36 16:16 13:42 WBC RBC Hgb Hct MCV MCH MCHC RDW Plt Count MPV Immature Gran % (Auto) Neut % (Auto) Lymph % (Auto) Dickson % (Auto) Eos % (Auto) Baso % (Auto) Lymph # (Auto) Dickson # (Auto) Eos # (Auto) Baso # (Auto) Abs Immat Gran (auto) Absolute Neuts (auto) Absolute Nucleated RBC Total Counted Neutrophils % (Manual) Band Neutrophils % Lymphocytes % (Manual) Monocytes % (Manual) Eosinophils % (Manual) Nucleated RBC % Abs Neuts (Manual) Abs Lymphs (Manual) Abs Monocytes (Manual) Absolute Eos (Manual) Nucleated RBCs Atypical Lymphocytes Smudge Cells Platelet Estimate Poikilocytosis Anisocytosis Tear Drop Cells Schistocytes Puncture Site ABG pH ABG pCO2 ABG pO2 ABG PO2/FiO2 Ratio ABG HCO3 ABG O2 Saturation ABG O2 Content ABG Base Excess A-a Gradient Oxyhemoglobin Carboxyhemoglobin Methemoglobin Reduced Hemoglobin Total Hemoglobin O2 Delivery Device O2 Liters/Min Minute Volume Vent Rate Vent Mode FiO2 Tidal Volume PEEP Peak Inspir Pressure Pressure Support Sodium Potassium Chloride Carbon Dioxide Anion Gap BUN Creatinine Estim Creat Clear Calc Estimated GFR Glucose POC Capillary Glucose 116 H Calcium Magnesium Total Bilirubin AST ALT Alkaline Phosphatase Total Protein Albumin Urine Histoplasma Ag <0.2 TB Test (QFT) Gold Plus Negative TB Test (QFT) Nil 1.42 TB Test Mitogen - Nil 1.04 TB Test Ag - Nil 1 0.03 TB Test Ag - Nil 2 <0.00 09/03/24 09/03/24 09/03/24 16:58 17:14 20:09 WBC RBC Hgb Hct MCV MCH MCHC RDW Plt Count MPV Immature Gran % (Auto) Neut % (Auto) Lymph % (Auto) Dickson % (Auto) Eos % (Auto) Baso % (Auto) Lymph # (Auto) Dickson # (Auto) Eos # (Auto) Baso # (Auto) Abs Immat Gran (auto) Absolute Neuts (auto) Absolute Nucleated RBC Total Counted Neutrophils % (Manual) Band Neutrophils % Lymphocytes % (Manual) Monocytes % (Manual) Eosinophils % (Manual) Nucleated RBC % Abs Neuts (Manual) Abs Lymphs (Manual) Abs Monocytes (Manual) Absolute Eos (Manual) Nucleated RBCs Atypical Lymphocytes Smudge Cells Platelet Estimate Poikilocytosis Anisocytosis Tear Drop Cells Schistocytes Puncture Site ABG pH ABG pCO2 ABG pO2 ABG PO2/FiO2 Ratio ABG HCO3 ABG O2 Saturation ABG O2 Content ABG Base Excess A-a Gradient Oxyhemoglobin Carboxyhemoglobin Methemoglobin Reduced Hemoglobin Total Hemoglobin O2 Delivery Device O2 Liters/Min Minute Volume Vent Rate Vent Mode FiO2 Tidal Volume PEEP Peak Inspir Pressure Pressure Support Sodium 141 Potassium 4.1 Chloride 113 H Carbon Dioxide 20 L Anion Gap 8 BUN 66 H Creatinine 0.96 Estim Creat Clear Calc 38 Estimated GFR 58 L Glucose 100 POC Capillary Glucose 108 H 87 Calcium 10.3 H Magnesium Total Bilirubin AST ALT Alkaline Phosphatase Total Protein Albumin Urine Histoplasma Ag TB Test (QFT) Gold Plus TB Test (QFT) Nil TB Test Mitogen - Nil TB Test Ag - Nil 1 TB Test Ag - Nil 2 09/03/24 09/04/24 09/04/24 23:55 03:27 04:31 WBC 46.7 H RBC 2.86 L Hgb 8.6 L Hct 26.9 L MCV 94.1 MCH 30.1 MCHC 32.0 RDW 24.3 H Plt Count 184 D MPV 11.6 H Immature Gran % (Auto) Not Reportable Neut % (Auto) Not Reportable Lymph % (Auto) Not Reportable Dickson % (Auto) Not Reportable Eos % (Auto) Not Reportable Baso % (Auto) Not Reportable Lymph # (Auto) Not Reportable Dickson # (Auto) Not Reportable Eos # (Auto) Not Reportable Baso # (Auto) Not Reportable Abs Immat Gran (auto) Not Reportable Absolute Neuts (auto) Not Reportable Absolute Nucleated RBC Not Reportable Total Counted 100 Neutrophils % (Manual) 68 Band Neutrophils % 12 H Lymphocytes % (Manual) 15.0 L Monocytes % (Manual) 4 Eosinophils % (Manual) 1 Nucleated RBC % Not Reportable Abs Neuts (Manual) 37.36 H Abs Lymphs (Manual) 7.00 H Abs Monocytes (Manual) 1.86 H Absolute Eos (Manual) 0.46 Nucleated RBCs 2 Atypical Lymphocytes Present Smudge Cells Present Platelet Estimate Adequate Poikilocytosis 1+ Anisocytosis 1+ Tear Drop Cells 1+ Schistocytes Rare Puncture Site Right radial ABG pH 7.176 L* ABG pCO2 55.6 H ABG pO2 114.9 H ABG PO2/FiO2 Ratio 1.77 ABG HCO3 20.1 L ABG O2 Saturation 97.0 ABG O2 Content 12.9 L ABG Base Excess -8.2 A-a Gradient 288.1 Oxyhemoglobin 97.0 Carboxyhemoglobin 0.5 Methemoglobin 0.1 Reduced Hemoglobin 2.4 Total Hemoglobin 9.3 L O2 Delivery Device Ventilator O2 Liters/Min Not Reportable Minute Volume Not Reportable Vent Rate 24 Vent Mode Cmv FiO2 65 Tidal Volume 370 PEEP 15 Peak Inspir Pressure Not Reportable Pressure Support Not Reportable Sodium 145 Potassium 3.9 Chloride 115 H Carbon Dioxide 21 L Anion Gap 9 BUN 81 H D Creatinine 1.17 H Estim Creat Clear Calc 32 Estimated GFR 46 L Glucose 96 POC Capillary Glucose 98 Calcium 11.3 H Magnesium 2.2 Total Bilirubin 0.3 AST 76 H ALT 26 Alkaline Phosphatase 105 Total Protein 5.1 L Albumin 2.8 L Urine Histoplasma Ag TB Test (QFT) Gold Plus TB Test (QFT) Nil TB Test Mitogen - Nil TB Test Ag - Nil 1 TB Test Ag - Nil 2 09/04/24 07:47 WBC RBC Hgb Hct MCV MCH MCHC RDW Plt Count MPV Immature Gran % (Auto) Neut % (Auto) Lymph % (Auto) Dickson % (Auto) Eos % (Auto) Baso % (Auto) Lymph # (Auto) Dickson # (Auto) Eos # (Auto) Baso # (Auto) Abs Immat Gran (auto) Absolute Neuts (auto) Absolute Nucleated RBC Total Counted Neutrophils % (Manual) Band Neutrophils % Lymphocytes % (Manual) Monocytes % (Manual) Eosinophils % (Manual) Nucleated RBC % Abs Neuts (Manual) Abs Lymphs (Manual) Abs Monocytes (Manual) Absolute Eos (Manual) Nucleated RBCs Atypical Lymphocytes Smudge Cells Platelet Estimate Poikilocytosis Anisocytosis Tear Drop Cells Schistocytes Puncture Site ABG pH ABG pCO2 ABG pO2 ABG PO2/FiO2 Ratio ABG HCO3 ABG O2 Saturation ABG O2 Content ABG Base Excess A-a Gradient Oxyhemoglobin Carboxyhemoglobin Methemoglobin Reduced Hemoglobin Total Hemoglobin O2 Delivery Device O2 Liters/Min Minute Volume Vent Rate Vent Mode FiO2 Tidal Volume PEEP Peak Inspir Pressure Pressure Support Sodium Potassium Chloride Carbon Dioxide Anion Gap BUN Creatinine Estim Creat Clear Calc Estimated GFR Glucose POC Capillary Glucose 94 Calcium Magnesium Total Bilirubin AST ALT Alkaline Phosphatase Total Protein Albumin Urine Histoplasma Ag TB Test (QFT) Gold Plus TB Test (QFT) Nil TB Test Mitogen - Nil TB Test Ag - Nil 1 TB Test Ag - Nil 2 Quality VTE Prophylaxis VTE prophylaxis: pharmacologic ordered
[2024-09-04] MEDS: ENOXAPARIN 60 MG/0.6 ML SYRINGE SUB-Q (13:09)
--- NOTE | 2024-09-04 13:15 | P.PCNBED_ITS ---
Procedures Central Line Placement Right IJ: Central Line Date: 09/04/24 Central Line Time: 13:15 Consent: I have discussed with the patient and/or surrogate, the non-emergent placement of a central venous catheter, including its clinical necessity/indication and associated potential risks and complications. The patient and/or surrogate understand(s) and acknowledge(s) the need to proceed with central venous catheter insertion as an important element of the patient's clinical management. Time Out Performed: Yes Patient Position: supine Patient placed on monitor/pulse ox: Yes Provider Prep: mask, sterile gown, sterile gloves, Max. sterile barrier precautions, cap and hand hygiene with conventional soap/water or alcohol based hand rub Central line prep: 2% Chlorhexidine scrub Local anesthesia used: lidocaine 1% Amount of anesthesia used (ml): 3 Sterile US Technique with sterile gel/sterile probe covers: Yes Central line lumen inserted: triple Mongolian: 7 Length (cm): 16 Depth of Insertion (cm): 16 Post Procedure: sutured in place, good blood return, all ports aspirated, flushed, capped, transparent dressing, hemostatic product, antimicrobial product, securement product and aseptic technique maintained throughout procedure Post procedure x-ray: tip of catheter in good position and no pneumothorax seen Patient tolerated procedure: well and no complications Complications: none
--- NOTE | 2024-09-04 13:17 | P.PCNBED_ITS ---
Procedures Arterial Line Arterial Line Date: 09/04/24 Arterial Line Time: 13:17 Discussed with the patient/family/POA, the placement of an arterial catheter, including its clinical necessity/indication and associated potential risks, benefits and alternatives.: Yes Patient/family/POA and/or understands and acknowledges the need to proceed with the arterial catheter insertion as an important element of the patient's clinical management.: Yes Time Out Performed: Yes Patient Position: supine Change Director Prep: sterile gown, sterile gloves, mask and hat Site: left and femoral Site Prep: chlorhexidine and sterile drape Skin Anesthesia: 1% lidocaine Technique used: ultrasound-guided Size (Gauge): 16 Length: 12 cm Closure/Dressing: suture, transparent dressing, hemostatic product, antimicrobial product and securement product Patient tolerated procedure: well and no complications Complications: none
[2024-09-04] MEDS: MICAFUNGIN SODIUM 100 MG in SODIUM CHLORIDE 0.9% IV 100 ML IVPB (13:41)
[2024-09-04 13:42] LABS: Alveolar/Arterial O2 Gradient 405.6 mmHg; Fractional Inspired Oxygen 100 %; HCO3 ABG 22.4 mEq/l (22.0-26.0); Oxygen Content ABG 11.5 %vol (16.0-22.0); Oxygen Saturation ABG 99.6 % (95.0-100.0); PCO2 ABG 37.3 mmHg (35.0-45.0); PO2 ABG 270.1 mmHg (80.0-100.0); PO2 FiO2 Ratio Arterial Blood 2.70 %
[2024-09-04 13:45] LABS: Site Drawn ARTLINE
[2024-09-04 13:46] LABS: Arterial Blood Gas Tidal Volume 370 ml; Arterial Blood Gas Ventilator rate 30 /MIN
[2024-09-04] MEDS: NOREPINEPHRINE 8 MG/D5W 250 ML 8 MG/250 ML BAG 9.38 MG IV CONT (14:40)
[2024-09-04 14:59] LABS: Oxygen Saturation ABG 83.6 % (95.0-100.0)
[2024-09-04 15:00] LABS: Arterial Blood Gas Tidal Volume 370 ml; Arterial Blood Gas Ventilator rate 20 /MIN
[2024-09-04] MEDS: PROPOFOL IV EMULSION 100 ML 16.58 MG IV CONT ×2 (15:39→22:00)
[2024-09-04 16:18] LABS: Human Parainfluenza Virus 1 Not Detected (Not Detected); Human Parainfluenza Virus 2 Not Detected (Not Detected); Human Parainfluenza Virus 3 Not Detected (Not Detected); Human Parainfluenza Virus 4 Not Detected (Not Detected); Human RSV B Not Detected (Not Detected)
[2024-09-04 16:39] LABS: Source FLEX SWAB
[2024-09-04] MEDS: SODIUM CHLORIDE 0.9% IV 1,000 ML 10 ML IV CONT (19:00)
[2024-09-04] MEDS: CISATRACURIUM BESYLATE 200 MG in SODIUM CHLORIDE 0.9% IV 80 ML 9.92 ML IV CONT (22:00)
[2024-09-04 23:03] LABS: Alveolar/Arterial O2 Gradient 321.6 mmHg; Fractional Inspired Oxygen 70 %; HCO3 ABG 21.6 mEq/l (22.0-26.0); Oxygen Content ABG 10.7 %vol (16.0-22.0); Oxygen Saturation ABG 98.8 % (95.0-100.0); PCO2 ABG 36.1 mmHg (35.0-45.0); PO2 ABG 138.7 mmHg (80.0-100.0); PO2 FiO2 Ratio Arterial Blood 1.98 %
[2024-09-04 23:07] LABS: Modified Allen's Test Pass; Site Drawn ARTLINE
[2024-09-04 23:09] LABS: Arterial Blood Gas Ventilator rate 12 /MIN
[2024-09-04 23:10] LABS: Arterial Blood Gas Tidal Volume 370 ml
[2024-09-05] VITALS (44 sets, daily range): BP systolic 106–158; BP diastolic 57–85; PULSE 90–129; RESP 24–28; TEMP 35.8–37.2; O2SAT 88–97
[2024-09-05] MEDS: ENOXAPARIN 60 MG/0.6 ML SYRINGE SUB-Q ×3 (00:25→21:45)
[2024-09-05] MEDS: METOCLOPRAMIDE HCL 10 MG/10 ML SOLN UDC FEED TUBE ×4 (00:53→17:03)
[2024-09-05] MEDS: MIDAZOLAM 100MG/NS 100ML(*CRX) 100 MG/100 ML BAG 11 MG IV CONT ×3 (01:04→19:06)
[2024-09-05] MEDS: PROPOFOL IV EMULSION 100 ML 16.58 MG IV CONT ×4 (02:53→19:06)
[2024-09-05 04:22] LABS: Hematocrit 23.1 % (37.0-47.0); Hemoglobin 7.7 g/dL (12.0-15.0); Mean Corpuscular HGB Conc 33.3 g/dl (32-36); Mean Corpuscular Hemoglobin 30.3 pg (26-34); Mean Corpuscular Volume 90.9 fl (80-100); Platelet Count Result 234 k/mm3 (150-375); Red Blood Count 2.54 M/mm3 (4.2-5.4); White Blood Count 42.2 K/mm3 (4.5-10.0)
[2024-09-05 04:46] LABS: Alanine Aminotransferase 22 U/L (6-35); Albumin Level 2.3 g/dL (3.5-5.1); Alkaline Phosphatase 101 U/L (38-126); Anion Gap 7 mmol/L (4-12); Aspartate Amino Transferase 73 U/L (14-36); Bilirubin,Total 0.2 mg/dL (0.2-1.3); Blood Urea Nitrogen 109 mg/dL (7-17); Calcium 11.7 mg/dL (8.4-10.2); Carbon Dioxide 23 mmol/L (22-30); Chloride 114 mmol/L (98-107); Estimated CRCL calculation 35 ml/min; Estimated Glomerular Filt Rate 51; Glucose 114 mg/dL (65-110); Magnesium 2.1 mg/dL (1.6-2.3); Potassium 3.4 mmol/L (3.4-5.0); Sodium 144 mmol/L (137-145); Total Protein 4.5 g/dL (6.3-8.2)
[2024-09-05 05:01] LABS: Total Cells Counted 100
[2024-09-05 05:02] LABS: Band Neutrophils Percent 4 % (0-6); Eosinophils Absolute Manual 0.42 K/mm3 (0.02-0.50); Eosinophils Percent Manual 1 % (0-4); Lymphocytes Absolute Manual 3.37 K/mm3 (1.1-4.5); Lymphocytes Percent Manual 8 % (18-44); Metamyelocytes Percent 1 %; Monocytes Absolute Manual 3.37 K/mm3 (0.1-0.90); Monocytes Percent Manual 8 % (3-9); Myelocytes Percent 1 %; Neutrophils Absolute Manual 33.76 K/mm3 (1.3-6.7); Neutrophils Percent Manual 76 % (46-73); Promyelocytes Percent 1 %
[2024-09-05 05:03] LABS: Hypochromasia 1+; Smudge Cells PRESENT
[2024-09-05 05:04] LABS: Ovalocytes 1+; Poikilocytosis 1+; Schistocytes None Seen
[2024-09-05 05:09] LABS: Alveolar/Arterial O2 Gradient 287.8 mmHg; Carboxyhemoglobin 0.9 % THb (0-2.0); Fractional Inspired Oxygen 60 %; HCO3 ABG 22.7 mEq/l (22.0-26.0); Methemoglobin ABG 0.3 %THb (0-1.5); Oxygen Content ABG 10.4 %vol (16.0-22.0); Oxygen Saturation ABG 97.4 % (95.0-100.0); PCO2 ABG 38.7 mmHg (35.0-45.0); PO2 ABG 97.4 mmHg (80.0-100.0); PO2 FiO2 Ratio Arterial Blood 1.62 %; Reduced Hemoglobin 2.8 %THb (0-5.0)
[2024-09-05 05:11] LABS: Arterial Blood Gas Ventilator rate 28 /MIN; Modified Allen's Test Pass; Site Drawn ARTLINE
[2024-09-05] MEDS: CENTRAL LINE FLUSH 10 ML IV PUSH ×6 (05:53→21:43)
[2024-09-05] MEDS: ACYCLOVIR 200 MG CAPSULE 400 MG FEED TUBE ×3 (05:53→21:43)
[2024-09-05] MEDS: CISATRACURIUM BESYLATE 200 MG in SODIUM CHLORIDE 0.9% IV 80 ML 9.02 ML IV CONT (08:17)
[2024-09-05] MEDS: KCL 40 MEQ/WATER 100 ML 100 ML 25 ML IVPB (08:36)
[2024-09-05] MEDS: HYDROCORTISONE SODIUM SUCCINATE 100 MG/2 ML VIAL 20 MG IV PUSH (08:37)
[2024-09-05] MEDS: PANTOPRAZOLE SODIUM IV 40 MG VIAL IV PUSH ×2 (08:38→21:43)
[2024-09-05] MEDS: levoFLOXacin 750 MG/D5W 150 ML 750 MG/150 ML BAG 100 MG IVPB (08:38)
[2024-09-05] MEDS: FENTANYL 2,500MCG/NS250ML(*CRX 2,500 MCG/250 ML BAG 22.5 MCG IV CONT ×2 (08:56→19:07)
[2024-09-05 10:13] LABS: Arterial Blood Gas Tidal Volume 370 ml
[2024-09-05] MEDS: CEFEPIME 2 GM/NS 50 ML 2 GM/50 ML BAG IVPB ×2 (10:49→21:25)
--- NOTE | 2024-09-05 10:56 | WPDINTPN ---
Progress Note: A&P Assessment and Plan (1) Acute respiratory failure: Code(s): J96.00 - Acute respiratory failure, unspecified whether with hypoxia or hypercapnia Status: Acute Assessment and Plan: Acute respiratory failure and sepsis secondary to bilateral Pseudomonas pneumonia in an immunocompromised patient who was on methotrexate and hydroxychloroquine. -ARDS physiology -08/30: Intubated for tachypnea, tachycardia, respiratory distress 08/31: bronchoscopy which did not show any LR hemorrhage or tracheobronchitis 08/31: BAL culture is growing Pseudomonas which is pansensitive. Also Milagros glabrata -continue cefepime and Levaquin. Vancomycin discontinued -08/29: Blood culture negative -08/20: sputum culture negative PCR for influenza RSV and COVID was negative Urine Legionella negative and pneumococcal antigen negative Negative Mycoplasma IgM Continue hydrocortisone but will decrease dose as patient was on chronic low-dose prednisone -09/04: Patient all of placed in prone position due to increased oxygen requirements secondary to ARDS and Pseudomonas pneumonia. Patient was also paralyzed with rocuronium and started on Nimbex infusion for ventilator synchrony 09/05: prone position, ABGs reviewed, ventilator adjusted. Patient will be placed in supine position, Sedated with fentanyl, Versed, propofol infusion. Also on Nimbex infusion for ventilator synchrony 08/29 CT Chest Dense bilateral multifocal infiltrates, predominantly perihilar, as detailed above. No additional source is detected for patient's profound sepsis (2) Gastroesophageal reflux disease: Qualifiers: Esophagitis presence: esophagitis presence not specified Qualified Code(s): K21.9 - Gastro-esophageal reflux disease without esophagitis Code(s): K21.9 - Gastro-esophageal reflux disease without esophagitis Status: Acute Assessment and Plan: PPI q.12 hours (3) FRANK (acute kidney injury): Code(s): N17.9 - Acute kidney failure, unspecified Status: Acute Assessment and Plan: Patient presented with elevated creatinine which was likely secondary to sepsis. Creatinine improved with IV fluids Cut down on further IV fluids and patient was given IV fluids Urine output improved. Patient was given Lasix yesterday to prevent volume overload 09/02 Overnight creatinine has slightly increased again Hold diuretics. 25% albumin was given 09/03 creatinine improved and states in normal range Will try to maintain map above 65 mmHg Monitor urine output electrolytes and creatinine Status post IV Lasix with adequate urine output, [place] catheter for accurate I&Os increased BUN will consult nephrology (4) Sepsis: Qualifiers: Sepsis acute organ dysfunction status: with acute organ dysfunction Sepsis type: sepsis due to unspecified organism Severe sepsis acute organ dysfunction type: encephalopathy Severe sepsis shock status: without septic shock Qualified Code(s): A41.9 - Sepsis, unspecified organism; R65.20 - Severe sepsis without septic shock; G93.41 - Metabolic encephalopathy Code(s): A41.9 - Sepsis, unspecified organism Status: Acute Assessment and Plan: See above (5) Immunosuppressed status: Code(s): D89.9 - Disorder involving the immune mechanism, unspecified Status: Acute Assessment and Plan: See above (6) Rheumatoid arthritis: Code(s): M06.9 - Rheumatoid arthritis, unspecified Status: Acute Assessment and Plan: Hold methotrexate and hydroxychloroquine (7) Toxic metabolic encephalopathy: Code(s): G92.8 - Other toxic encephalopathy Status: Acute Assessment and Plan: Patient presented with altered mental status and confusion which appears to be encephalopathy ache. Patient has sepsis and was on several medication including tramadol and benzodiazepine at home Head CT was negative TSH was normal Patient obviously now sedated and intubated. Patient has been on benzodiazepine and pain medications chronically and requiring significant amount of medications to keep her sedated (8) Pneumonia: Qualifiers: Laterality: bilateral Lung location: unspecified part of lung Pneumonia type: due to unspecified organism Qualified Code(s): J18.9 - Pneumonia, unspecified organism Code(s): J18.9 - Pneumonia, unspecified organism Status: Acute Assessment and Plan: See above (9) Urinary tract infection: Qualifiers: Hematuria presence: with hematuria Urinary tract infection type: site unspecified Qualified Code(s): N39.0 - Urinary tract infection, site not specified; R31.9 - Hematuria, unspecified Code(s): N39.0 - Urinary tract infection, site not specified Status: Acute Assessment and Plan: UA suggestive of UTI Cultures ordered On broad-spectrum antibiotics (10) Herpes labialis: Code(s): B00.1 - Herpesviral vesicular dermatitis Status: Acute Assessment and Plan: Continue acyclovir through tube (11) Hypoglycemia: Code(s): E16.2 - Hypoglycemia, unspecified Status: Acute Assessment and Plan: Patient had couple episodes of hypoglycemia early in the course. OFF D10 infusion (12) Ileus: Code(s): K56.7 - Ileus, unspecified Status: Acute Assessment and Plan: Although bowel sounds are present patient has not been tolerating tube feeds with very high residuals. -On Tube feeds 20 mL/hour. Continue reglan -patient also on propofol (13) Peripheral ischemia: Code(s): I99.8 - Other disorder of circulatory system Status: Acute Assessment and Plan: Patient has developed discoloration/gangrene of all 10 fingers. likely systemic presentation suggest against vascular clot, septic emboli, pseudomonal infection Radial pulses are dopplerable Blood pressure are adequate Monitor maintain mean arterial pressure above 65 mmHg (14) Swelling of both upper extremities: Code(s): M79.89 - Other specified soft tissue disorders Status: Acute Assessment and Plan: Likely secondary to edema as it is bilateral 09/03: Bilateral upper extremity venous Doppler showed extensive deep and superficial venous thrombosis throughout the bilateral upper extremities -started on therapeutic Lovenox IV q.12 hours Plan DVT prophylaxis -therapeutic Lovenox Stress ulcer prophylaxis -Protonix Nutrition -continue tube feeds at low rate. Continue Reglan Code Status - DNR Total Critical Care Time - 35 minutes Discussed with patient's , son and [id number], son is the POA. Updated them with patient's condition, plan of care. I explained to them that she has severe Pseudomonas pneumonia, possible septic emboli of her digits on her hand bilaterally. Patient is in prone position, will be placing her in supine position and will place a central line and arterial line to which they are agreeable. I also discussed with them code status and the p.o. has made her DNR. Due to a high probability of clinically significant, life threatening deterioration, the patient required my highest level of preparedness to intervene emergently and I personally spent this critical care time directly and personally managing the patient. This critical care time included obtaining a history; examining the patient; pulse oximetry; ordering and review of studies; arranging urgent treatment with development of a management plan; evaluation of patient's response to treatment; frequent reassessment; and discussions with other providers. It was exclusive of separately billable procedures and treating other patients and teaching time. Please see Assessment and Plan section and the rest of the note for further information on patient assessment and treatment Subjective Date/time seen: 09/05/24 10:56 Interval history: 68-year-old with a history of rheumatoid arthritis, Crohn's, on immunosuppressive medications, GERD admitted to ICU for pneumonia and respiratory failure requiring intubation and mechanical ventilation Reason for consult: Acute respiratory failure, ARDS physiology, sepsis, encephalopathy, pneumonia, herpes labialis, hyperglycemia, ileus, bilateral upper extremity DVTs 09/05/2024: Patient seen and examined the ICU, remains intubated on CMV mode of ventilation, peep of 12, 60% FiO2. Patient is in prone position. Sedated with fentanyl, Versed, propofol infusions. Patient also on Nimbex for ventilator synchrony. On tube feeds at 20 mL/hour and tolerating this. Discoloration of all the fingers bilaterally Review of Systems Review of Systems: ROS unobtainable: Yes unobtainable due to endotracheal tube, unobtainable due to medical condition and unobtainable due to mental status Exam Narrative: General: Pt is now sedated, intubated, in prone position Lungs/Chest: Coarse breath sounds bilaterally, decreased at bases, no wheezing Cardiac: Tachycardia RRR. Normal S1 S2. No murmurs Circulation: Bilateral radial pulses and bilateral pedal pulses and palpable, Abdomen: Decreased bowel sounds. Soft. NT. ND. Extremities: Warm edema of both arms right more than left with some weeping : Obregon in place Neurologic: Prior to intubation patient was AO x3 and was moving all 4 extremities, PERRL now sedated and intubated, paralyzed Skin: 08/30 edema with breakdown of the skin which appears to be popped blisters on right labia. Patient was examined in the presence of female zipper lining folder She also has several scabbed wounds on her both legs which are in various healing stage but no open or infected wound. All 10 fingers are discolored. No discoloration noted on the toes bilaterally Objective Data Vital Signs Vital Signs: Vital Signs - 24 hr 09/04/24 11:17 09/04/24 11:17 09/04/24 11:40 Temperature Pulse Rate 111 H 111 H 103 H Respiratory Rate 30 H 30 H Blood Pressure Pulse Oximetry 95 Oxygen Delivery Mechanical Ventilation Fraction of Inspired Oxygen 60 09/04/24 12:00 09/04/24 12:00 09/04/24 12:00 Temperature Pulse Rate 108 H 105 H 105 H Respiratory Rate 30 H 27 H 27 H Blood Pressure 133/67 Pulse Oximetry 93 Oxygen Delivery Fraction of Inspired Oxygen 09/04/24 12:00 09/04/24 12:00 09/04/24 12:00 Temperature Pulse Rate 105 H 105 H 105 H Respiratory Rate 27 H 27 H 27 H Blood Pressure 133/67 Pulse Oximetry 93 Oxygen Delivery Mechanical Ventilation Fraction of Inspired Oxygen 60 09/04/24 12:00 09/04/24 12:00 09/04/24 12:30 Temperature Pulse Rate 105 H 101 H Respiratory Rate Blood Pressure 100/53 L Pulse Oximetry Oxygen Delivery Fraction of Inspired Oxygen 60 09/04/24 13:00 09/04/24 13:00 09/04/24 13:00 Temperature Pulse Rate 102 H 101 H 101 H Respiratory Rate 30 H 30 H 30 H Blood Pressure 110/76 Pulse Oximetry Oxygen Delivery Fraction of Inspired Oxygen 09/04/24 13:00 09/04/24 13:45 09/04/24 13:53 Temperature Pulse Rate 101 H 102 H 100 Respiratory Rate 30 H 30 H Blood Pressure 95/52 L Pulse Oximetry 91 Oxygen Delivery Mechanical Ventilation Fraction of Inspired Oxygen 60 09/04/24 14:00 09/04/24 14:00 09/04/24 14:00 Temperature Pulse Rate 99 99 99 Respiratory Rate 27 H 28 H 28 H Blood Pressure 91/50 L Pulse Oximetry 92 Oxygen Delivery Fraction of Inspired Oxygen 09/04/24 14:00 09/04/24 14:00 09/04/24 14:00 Temperature Pulse Rate 100 100 90 Respiratory Rate 28 H 28 H Blood Pressure 106/66 Pulse Oximetry Oxygen Delivery Fraction of Inspired Oxygen 09/04/24 14:23 09/04/24 14:24 09/04/24 14:28 Temperature 96.7 F L Pulse Rate 99 99 Respiratory Rate 28 H 28 H Blood Pressure 91/50 L Pulse Oximetry Oxygen Delivery Fraction of Inspired Oxygen 09/04/24 14:40 09/04/24 15:30 09/04/24 15:39 Temperature Pulse Rate 98 89 89 Respiratory Rate 28 H 28 H Blood Pressure 91/50 L 114/59 L Pulse Oximetry Oxygen Delivery Fraction of Inspired Oxygen 09/04/24 15:39 09/04/24 15:39 09/04/24 15:39 Temperature Pulse Rate 89 90 90 Respiratory Rate 28 H 28 H 28 H Blood Pressure Pulse Oximetry Oxygen Delivery Fraction of Inspired Oxygen 09/04/24 16:00 09/04/24 16:00 09/04/24 16:00 Temperature 97.0 F L Pulse Rate 89 89 Respiratory Rate 28 H 28 H Blood Pressure 132/83 114/60 Pulse Oximetry 93 93 Oxygen Delivery Mechanical Ventilation Fraction of Inspired Oxygen 60 09/04/24 16:00 09/04/24 16:00 09/04/24 16:00 Temperature Pulse Rate 89 89 Respiratory Rate 28 H Blood Pressure Pulse Oximetry Oxygen Delivery Fraction of Inspired Oxygen 60 09/04/24 16:00 09/04/24 16:00 09/04/24 16:07 Temperature Pulse Rate 89 89 89 Respiratory Rate 28 H 28 H 28 H Blood Pressure 121/63 Pulse Oximetry Oxygen Delivery Fraction of Inspired Oxygen 09/04/24 16:09 09/04/24 16:23 09/04/24 17:35 Temperature Pulse Rate 90 89 89 Respiratory Rate 28 H Blood Pressure 119/62 102/57 L Pulse Oximetry 95 Oxygen Delivery Mechanical Ventilation Fraction of Inspired Oxygen 60 09/04/24 18:00 09/04/24 18:00 09/04/24 18:00 Temperature Pulse Rate 88 88 89 Respiratory Rate 28 H 28 H Blood Pressure 124/79 Pulse Oximetry Oxygen Delivery Fraction of Inspired Oxygen 09/04/24 18:00 09/04/24 18:00 09/04/24 18:00 Temperature Pulse Rate 88 91 89 Respiratory Rate 28 H 28 H Blood Pressure 112/60 Pulse Oximetry Oxygen Delivery Fraction of Inspired Oxygen 09/04/24 18:00 09/04/24 18:24 09/04/24 19:54 Temperature 97.1 F L Pulse Rate 89 90 Respiratory Rate 28 H Blood Pressure 103/56 L Pulse Oximetry 94 94 Oxygen Delivery Mechanical Ventilation Fraction of Inspired Oxygen 60 09/04/24 20:00 09/04/24 20:00 09/04/24 20:00 Temperature Pulse Rate 90 90 90 Respiratory Rate 28 H 28 H 28 H Blood Pressure 120/65 Pulse Oximetry Oxygen Delivery Fraction of Inspired Oxygen 09/04/24 20:00 09/04/24 20:00 09/04/24 20:00 Temperature Pulse Rate 90 90 90 Respiratory Rate 28 H 28 H Blood Pressure 120/65 Pulse Oximetry 95 Oxygen Delivery Mechanical Ventilation Fraction of Inspired Oxygen 60 09/04/24 20:00 09/04/24 20:00 09/04/24 20:00 Temperature 98.3 F Pulse Rate 90 90 Respiratory Rate 24 H Blood Pressure 139/89 Pulse Oximetry 95 Oxygen Delivery Fraction of Inspired Oxygen 60 09/04/24 21:12 09/04/24 21:12 09/04/24 21:15 Temperature Pulse Rate 101 H 101 H 101 H Respiratory Rate 28 H 28 H Blood Pressure 142/74 H Pulse Oximetry Oxygen Delivery Fraction of Inspired Oxygen 09/04/24 21:35 09/04/24 22:00 09/04/24 22:00 Temperature Pulse Rate 101 H 106 H 106 H Respiratory Rate 28 H 28 H Blood Pressure 133/75 Pulse Oximetry Oxygen Delivery Fraction of Inspired Oxygen 09/04/24 22:00 09/04/24 22:00 09/04/24 22:00 Temperature Pulse Rate 106 H 106 H 106 H Respiratory Rate 28 H 28 H 28 H Blood Pressure 130/72 130/72 Pulse Oximetry Oxygen Delivery Fraction of Inspired Oxygen 09/04/24 22:00 09/04/24 22:00 09/04/24 22:00 Temperature Pulse Rate 106 H 106 H 106 H Respiratory Rate 28 H Blood Pressure 130/72 Pulse Oximetry Oxygen Delivery Fraction of Inspired Oxygen 09/04/24 22:00 09/04/24 23:12 09/05/24 00:00 Temperature 98.9 F Pulse Rate 106 H 112 H 113 H Respiratory Rate 28 H 24 H Blood Pressure 128/71 128/78 Pulse Oximetry 92 90 88 L Oxygen Delivery Mechanical Ventilation Fraction of Inspired Oxygen 70 09/05/24 00:00 09/05/24 00:00 09/05/24 00:00 Temperature Pulse Rate 116 H 116 H 116 H Respiratory Rate 28 H 28 H 28 H Blood Pressure Pulse Oximetry Oxygen Delivery Fraction of Inspired Oxygen 09/05/24 00:00 09/05/24 00:00 09/05/24 00:00 Temperature Pulse Rate 116 H 116 H 116 H Respiratory Rate 28 H 28 H Blood Pressure 130/70 130/72 Pulse Oximetry 94 Oxygen Delivery Mechanical Ventilation Fraction of Inspired Oxygen 60 09/05/24 00:00 09/05/24 00:00 09/05/24 01:04 Temperature Pulse Rate 115 H 116 H Respiratory Rate 28 H Blood Pressure Pulse Oximetry Oxygen Delivery Fraction of Inspired Oxygen 70 09/05/24 01:04 09/05/24 01:21 09/05/24 02:00 Temperature Pulse Rate 116 H 116 H 117 H Respiratory Rate 28 H 28 H Blood Pressure Pulse Oximetry 94 Oxygen Delivery Mechanical Ventilation Fraction of Inspired Oxygen 60 09/05/24 02:00 09/05/24 02:00 09/05/24 02:00 Temperature Pulse Rate 117 H 117 H 117 H Respiratory Rate 28 H 28 H Blood Pressure 122/77 Pulse Oximetry Oxygen Delivery Fraction of Inspired Oxygen 09/05/24 02:00 09/05/24 02:00 09/05/24 02:00 Temperature Pulse Rate 117 H 117 H 116 H Respiratory Rate 28 H 24 H Blood Pressure 122/77 122/77 Pulse Oximetry 92 Oxygen Delivery Fraction of Inspired Oxygen 09/05/24 02:53 09/05/24 02:53 09/05/24 04:00 Temperature Pulse Rate 117 H 117 H 117 H Respiratory Rate 28 H 28 H 28 H Blood Pressure Pulse Oximetry Oxygen Delivery Fraction of Inspired Oxygen 09/05/24 04:00 09/05/24 04:00 09/05/24 04:00 Temperature Pulse Rate 111 H 117 H 117 H Respiratory Rate 28 H 28 H Blood Pressure 119/68 Pulse Oximetry Oxygen Delivery Fraction of Inspired Oxygen 09/05/24 04:00 09/05/24 04:00 09/05/24 04:00 Temperature Pulse Rate 117 H 118 H Respiratory Rate 28 H Blood Pressure 119/68 Pulse Oximetry Oxygen Delivery Fraction of Inspired Oxygen 60 09/05/24 04:00 09/05/24 04:00 09/05/24 05:13 Temperature 97.8 F Pulse Rate 118 H 117 H 115 H Respiratory Rate 28 H 28 H Blood Pressure 119/75 Pulse Oximetry 94 93 92 Oxygen Delivery Mechanical Ventilation Mechanical Ventilation Fraction of Inspired Oxygen 60 60 09/05/24 06:00 09/05/24 06:00 09/05/24 06:00 Temperature Pulse Rate 116 H 115 H 115 H Respiratory Rate 28 H Blood Pressure 123/68 Pulse Oximetry Oxygen Delivery Fraction of Inspired Oxygen 09/05/24 06:00 09/05/24 06:00 09/05/24 06:00 Temperature Pulse Rate 115 H 115 H 115 H Respiratory Rate 28 H 28 H 28 H Blood Pressure 123/68 Pulse Oximetry Oxygen Delivery Fraction of Inspired Oxygen 09/05/24 06:00 09/05/24 08:00 09/05/24 08:00 Temperature 98.5 F Pulse Rate 115 H 129 H 129 H Respiratory Rate 24 H 28 H Blood Pressure 119/75 158/85 H Pulse Oximetry 91 94 Oxygen Delivery Fraction of Inspired Oxygen 09/05/24 08:00 09/05/24 08:00 09/05/24 08:01 Temperature Pulse Rate 127 H 127 H Respiratory Rate 28 H Blood Pressure 143/76 H 149/79 H Pulse Oximetry Oxygen Delivery Fraction of Inspired Oxygen 09/05/24 08:06 09/05/24 08:17 09/05/24 08:19 Temperature Pulse Rate 127 H 127 H 129 H Respiratory Rate 28 H 28 H 28 H Blood Pressure 143/76 H 143/76 H Pulse Oximetry Oxygen Delivery Fraction of Inspired Oxygen 09/05/24 08:27 09/05/24 08:55 09/05/24 08:56 Temperature Pulse Rate 129 H 124 H 124 H Respiratory Rate 28 H 28 H Blood Pressure Pulse Oximetry 94 Oxygen Delivery Mechanical Ventilation Fraction of Inspired Oxygen 60 09/05/24 08:59 09/05/24 10:00 09/05/24 10:00 Temperature 96.8 F L Pulse Rate 124 H 115 H 116 H Respiratory Rate 28 H 28 H 28 H Blood Pressure 158/85 H 125/72 Pulse Oximetry 90 Oxygen Delivery Fraction of Inspired Oxygen 09/05/24 10:00 09/05/24 10:00 09/05/24 10:01 Temperature Pulse Rate 116 H 116 H Respiratory Rate 28 H 28 H Blood Pressure 122/70 Pulse Oximetry Oxygen Delivery Fraction of Inspired Oxygen 09/05/24 10:10 09/05/24 10:33 09/05/24 10:41 Temperature Pulse Rate 109 H 111 H 109 H Respiratory Rate 28 H 28 H 28 H Blood Pressure 117/67 Pulse Oximetry Oxygen Delivery Fraction of Inspired Oxygen Intake/Output Intake/Output: Intake & Output 09/02/24 09/03/24 09/04/24 09/05/24 23:59 23:59 23:59 23:59 Intake Total 2328.4 2114.5 2242.3 997.6 Output Total 1150 1850 900 660 Balance 1178.4 264.5 1342.3 337.6 Meds/Results Medications: Active Medications Generic Name Dose Route Start Last Admin Trade Name Freq PRN Reason Stop Dose Admin Acetaminophen 650 mg 08/29/24 18:17 Acetaminophen 325 Mg Tablet PO Q4H PRN Mild Pain (1-3) or Fever Acetaminophen 650 mg 08/30/24 00:43 08/30/24 06:56 Acetaminophen 650 Mg Suppository RECTAL 650 mg Q6H PRN Administration Mild Pain (1-3) or Fever Acyclovir 400 mg 08/30/24 14:00 09/05/24 05:53 Acyclovir 200 Mg Capsule FEED TUBE 09/09/24 06:01 400 mg Q8HR RHYS Administration Dextrose 12.5 gm 08/29/24 20:42 08/31/24 20:55 Dextrose 50% 25 Gm/50 Ml Syringe IV PUSH 12.5 gm PRN PRN Administration Hypoglycemia Protocol Enoxaparin Sodium 60 mg 09/03/24 11:35 09/05/24 10:52 Enoxaparin 60 Mg/0.6 Ml Syringe SUB-Q 60 mg Q12H RHYS Administration Glucagon 1 mg 08/29/24 20:42 Glucagon For Inj 1 Mg Vial IM PRN PRN Hypoglycemia Protocol Glucose 15 gm 08/29/24 20:42 Glucose Oral Gel 15 Gm Of Glucse In 37.5 Gm Tube PO PRN PRN Hypoglycemia Protocol Hydrocortisone Sodium Succinate 20 mg 09/03/24 09:00 09/05/24 08:37 Hydrocortisone Sodium Succinate 100 Mg/2 Ml Vial IV PUSH 20 mg QAM RHYS Administration Dextrose 1,000 mls @ 100 mls/hr 08/29/24 20:42 Dextrose 5% 1,000 Ml IVPB PRN PRN Hypoglycemia Protocol Cefepime HCl 2 gm in 50 mls @ 100 mls/hr 08/30/24 10:00 09/05/24 10:49 Maxipime 2 Gm/Ns 50 Ml IVPB 100 mls/hr Q12HR RHYS Administration Fentanyl Citrate 2,500 mcg in 250 mls @ 22.5 mls/hr 08/30/24 10:20 09/05/24 10:00 Fentanyl 2,500 Mcg/Ns 250 Ml IV CONT 225 mcg/hr .Q11H7M RHYS 22.5 mls/hr Titration Protocol 225 MCG/HR Midazolam HCl 100 mg in 100 mls @ 11 mls/hr 08/30/24 10:20 09/05/24 10:41 Versed 100 Mg/Ns 100 Ml IV CONT 11 mg/hr .Q9H6M RHYS 11 mls/hr Administration Protocol 11 MG/HR Propofol 100 mls @ 16.578 mls/hr 08/31/24 08:30 09/05/24 08:59 Diprivan IV CONT 45 mcg/kg/min .Q6H2M RHYS 16.58 mls/hr Administration Protocol 45 MCG/KG/MIN Cisatracurium Besylate 200 mg/ 100 mls @ 8.114 mls/hr 09/03/24 10:45 09/05/24 10:33 Sodium Chloride IV CONT 4.5 mcg/kg/min .[id number] RHYS 8.11 mls/hr Titration Protocol 4.5 MCG/KG/MIN Micafungin Sodium 100 mg/ 100 mls @ 100 mls/hr 09/04/24 10:20 09/04/24 14:41 Sodium Chloride IVPB Infused DAILY RHYS Infusion Levofloxacin/Dextrose 750 mg in 150 mls @ 100 mls/hr 09/05/24 09:00 09/05/24 08:38 Levaquin 750 Mg/D5w 150 Ml IVPB 100 mls/hr Q48H RHYS Administration Norepinephrine Bitartrate 8 mg in 250 mls @ 0 mls/hr 09/04/24 14:30 09/05/24 08:00 Levophed 8 Mg/D5w 250 Ml IV CONT 0 mcg/min .Q0M RHYS 0 mls/hr Titration Protocol 0 MCG/MIN Potassium Chloride 100 mls @ 25 mls/hr 09/05/24 08:00 09/05/24 08:36 Kcl 40 Meq/Water 100 Ml IVPB 09/05/24 11:59 25 mls/hr ONCE ONE Administration Insulin Aspart 3 - 6 units 08/31/24 16:39 09/05/24 05:37 Insulin Aspart (*Bkc) 100 Units/Ml SUB-Q Not Given Q4HR RHYS Protocol Metoclopramide HCl 10 mg 09/01/24 08:00 09/05/24 05:53 Metoclopramide Hcl 10 Mg/10 Ml Soln Udc FEED TUBE 10 mg Q6HR RHYS Administration Multi-Ingred Cream/Lotion/Oil/Oint 1 applic 08/30/24 10:20 09/04/24 20:09 Mineral Oil/White Petrolatum Ointment EACH EYE 1 applic Q12HR RHYS Administration Pantoprazole Sodium 40 mg 08/30/24 10:40 09/05/24 08:38 Pantoprazole Sodium Iv 40 Mg Vial IV PUSH 40 mg Q12HR RHYS Administration Prednisolone Acetate 1 drop 08/30/24 21:00 09/04/24 20:09 Prednisolone Acetate 1% Ophth 5 Ml RIGHT EYE 1 drop Q12HR RHYS Administration Sodium Chloride 10 ml 08/30/24 14:00 09/05/24 05:53 Central Line Flush IV PUSH 10 ml Q8HR RHYS Administration Sodium Chloride 10 ml 08/30/24 12:17 Central Line Flush IV PUSH PRN PRN with TPN bag changes Sodium Chloride 20 ml 08/30/24 12:17 Central Line Flush IV PUSH PRN PRN after blood draws Sodium Chloride 10 ml 09/04/24 22:00 09/05/24 05:53 Central Line Flush IV PUSH 10 ml Q8HR RHYS Administration Sodium Chloride 20 ml 09/04/24 12:30 Central Line Flush IV PUSH PRN PRN after blood draws Radiology Results: ITS Impressions Head CT 08/29/24 21:55 Impression: No acute intracranial hemorrhage or suspicious mass effect. Chest/Abdomen/Pelvis CT 08/29/24 21:57 IMPRESSION: Dense bilateral multifocal infiltrates, predominantly perihilar, as detailed above. No additional source is detected for patient's profound sepsis. Abdomen X-Ray 08/30/24 11:02 IMPRESSION: Bilateral pneumonia. Differential include pulmonary edema. Venous Doppler Study 09/03/24 10:50 IMPRESSION: 1. Extensive deep and superficial venous thrombosis throughout the bilateral upper lungs as detailed above. Findings were discussed with Jacinto Victor, the nurse caring for the patient, at 10:59 AM. ADDENDUM: 09/03/24 1400 CORRECTION: There is a dictation error in the impression section. With the correction capitalized this should read- Extensive deep and superficial venous thrombosis throughout the bilateral upper LIMBS as detailed above. Chest X-Ray 09/05/24 09:37 IMPRESSION: Bilateral pneumonia. Pulmonary edema cannot be excluded. Supporting lines are unchanged. Labs Labs: Laboratory Results - last 24 hr 08/30/24 08/31/24 08/31/24 16:16 08:39 10:32 WBC RBC Hgb Hct MCV MCH MCHC RDW Plt Count MPV Immature Gran % (Auto) Neut % (Auto) Lymph % (Auto) Sunflower % (Auto) Eos % (Auto) Baso % (Auto) Lymph # (Auto) Sunflower # (Auto) Eos # (Auto) Baso # (Auto) Abs Immat Gran (auto) Absolute Neuts (auto) Absolute Nucleated RBC Total Counted Neutrophils % (Manual) Band Neutrophils % Lymphocytes % (Manual) Monocytes % (Manual) Eosinophils % (Manual) Metamyelocytes % Myelocytes % Promyelocytes % (Man) Nucleated RBC % Abs Neuts (Manual) Abs Lymphs (Manual) Abs Monocytes (Manual) Absolute Eos (Manual) Atypical Lymphocytes Smudge Cells Platelet Estimate Hypochromasia Poikilocytosis Ovalocytes Schistocytes Puncture Site ABG pH ABG pCO2 ABG pO2 ABG PO2/FiO2 Ratio ABG HCO3 ABG O2 Saturation ABG O2 Content ABG Base Excess A-a Gradient Oxyhemoglobin Carboxyhemoglobin Methemoglobin Reduced Hemoglobin Total Hemoglobin O2 Delivery Device O2 Liters/Min Minute Volume Vent Rate Vent Mode FiO2 Tidal Volume PEEP Peak Inspir Pressure Pressure Support Sodium Potassium Chloride Carbon Dioxide Anion Gap BUN Creatinine Estim Creat Clear Calc Estimated GFR Glucose POC Capillary Glucose Calcium Phosphorus Magnesium Total Bilirubin AST ALT Alkaline Phosphatase Total Protein Albumin Nasal RSV Type A (PCR) Not detected Nasal RSV Type B (PCR) Not detected Chlamy pneumoniae PCR Not detected Adenovirus DNA Not detected Human Bocavirus (KATIA) Not detected Coronavirus Type OC43 Not detected Coronavirus Type HKU1 Not detected Coronavirus Type 229E Not detected Coronavirus Type NL63 Not detected CMV Qnt PCR log IU/mL TNP Human Metapneumovir PCR Detected A Influenza A (PCR) Not detected Influenza A (H1) RNA Not detected Influenza A (H3) PCR Not detected M. pneumoniae DNA Not detected Parainfluenza PCR Not detected Parainfluenza 2 (PCR) Not detected Parainfluenza 3 RNA (PCR) Not detected Parainfluenza 4 (PCR) Not detected Resp Viral Panel Intrp See note Rhino/Enterovirus (KATIA) Not detected Viral Specimen Source Flex swab Influenza Type B (PCR) Not detected Misc Test Comment see note 09/03/24 09/04/24 09/04/24 16:24 13:24 13:39 WBC RBC Hgb Hct MCV MCH MCHC RDW Plt Count MPV Immature Gran % (Auto) Neut % (Auto) Lymph % (Auto) Sunflower % (Auto) Eos % (Auto) Baso % (Auto) Lymph # (Auto) Sunflower # (Auto) Eos # (Auto) Baso # (Auto) Abs Immat Gran (auto) Absolute Neuts (auto) Absolute Nucleated RBC Total Counted Neutrophils % (Manual) Band Neutrophils % Lymphocytes % (Manual) Monocytes % (Manual) Eosinophils % (Manual) Metamyelocytes % Myelocytes % Promyelocytes % (Man) Nucleated RBC % Abs Neuts (Manual) Abs Lymphs (Manual) Abs Monocytes (Manual) Absolute Eos (Manual) Atypical Lymphocytes Smudge Cells Platelet Estimate Hypochromasia Poikilocytosis Ovalocytes Schistocytes Puncture Site Not Reportable Artline ABG pH 7.198 L* 7.397 ABG pCO2 53.0 H 37.3 ABG pO2 58.3 L 270.1 H ABG PO2/FiO2 Ratio 0.90 2.70 ABG HCO3 20.2 L 22.4 ABG O2 Saturation 83.6 L* 99.6 ABG O2 Content 10.9 L 11.5 L ABG Base Excess -7.7 -2.2 A-a Gradient 347.5 405.6 Oxyhemoglobin 86.7 L* 98.2 Carboxyhemoglobin Methemoglobin Reduced Hemoglobin Total Hemoglobin 8.9 L 7.8 L* O2 Delivery Device Ventilator Ventilator O2 Liters/Min Not Reportable Not Reportable Minute Volume Not Reportable Not Reportable Vent Rate 20 30 Vent Mode Cmv Cmv FiO2 65 100 Tidal Volume 370 370 PEEP 15 12 Peak Inspir Pressure Not Reportable Not Reportable Pressure Support Not Reportable Not Reportable Sodium Potassium Chloride Carbon Dioxide Anion Gap BUN Creatinine Estim Creat Clear Calc Estimated GFR Glucose POC Capillary Glucose 97 Calcium Phosphorus Magnesium Total Bilirubin AST ALT Alkaline Phosphatase Total Protein Albumin Nasal RSV Type A (PCR) Nasal RSV Type B (PCR) Chlamy pneumoniae PCR Adenovirus DNA Human Bocavirus (KATIA) Coronavirus Type OC43 Coronavirus Type HKU1 Coronavirus Type 229E Coronavirus Type NL63 CMV Qnt PCR log IU/mL Human Metapneumovir PCR Influenza A (PCR) Influenza A (H1) RNA Influenza A (H3) PCR M. pneumoniae DNA Parainfluenza PCR Parainfluenza 2 (PCR) Parainfluenza 3 RNA (PCR) Parainfluenza 4 (PCR) Resp Viral Panel Intrp Rhino/Enterovirus (KATIA) Viral Specimen Source Influenza Type B (PCR) Misc Test Comment 09/04/24 09/04/24 09/04/24 16:28 19:45 22:53 WBC RBC Hgb Hct MCV MCH MCHC RDW Plt Count MPV Immature Gran % (Auto) Neut % (Auto) Lymph % (Auto) Sunflower % (Auto) Eos % (Auto) Baso % (Auto) Lymph # (Auto) Sunflower # (Auto) Eos # (Auto) Baso # (Auto) Abs Immat Gran (auto) Absolute Neuts (auto) Absolute Nucleated RBC Total Counted Neutrophils % (Manual) Band Neutrophils % Lymphocytes % (Manual) Monocytes % (Manual) Eosinophils % (Manual) Metamyelocytes % Myelocytes % Promyelocytes % (Man) Nucleated RBC % Abs Neuts (Manual) Abs Lymphs (Manual) Abs Monocytes (Manual) Absolute Eos (Manual) Atypical Lymphocytes Smudge Cells Platelet Estimate Hypochromasia Poikilocytosis Ovalocytes Schistocytes Puncture Site Artline ABG pH 7.395 ABG pCO2 36.1 ABG pO2 138.7 H ABG PO2/FiO2 Ratio 1.98 ABG HCO3 21.6 L ABG O2 Saturation 98.8 ABG O2 Content 10.7 L ABG Base Excess -2.9 A-a Gradient 321.6 Oxyhemoglobin 97.4 Carboxyhemoglobin Methemoglobin Reduced Hemoglobin Total Hemoglobin 7.6 L* O2 Delivery Device Ventilator O2 Liters/Min Not Reportable Minute Volume Not Reportable Vent Rate 12 Vent Mode Assist control FiO2 70 Tidal Volume 370 PEEP 12 Peak Inspir Pressure Not Reportable Pressure Support Not Reportable Sodium Potassium Chloride Carbon Dioxide Anion Gap BUN Creatinine Estim Creat Clear Calc Estimated GFR Glucose POC Capillary Glucose 113 H 99 Calcium Phosphorus Magnesium Total Bilirubin AST ALT Alkaline Phosphatase Total Protein Albumin Nasal RSV Type A (PCR) Nasal RSV Type B (PCR) Chlamy pneumoniae PCR Adenovirus DNA Human Bocavirus (KATIA) Coronavirus Type OC43 Coronavirus Type HKU1 Coronavirus Type 229E Coronavirus Type NL63 CMV Qnt PCR log IU/mL Human Metapneumovir PCR Influenza A (PCR) Influenza A (H1) RNA Influenza A (H3) PCR M. pneumoniae DNA Parainfluenza PCR Parainfluenza 2 (PCR) Parainfluenza 3 RNA (PCR) Parainfluenza 4 (PCR) Resp Viral Panel Intrp Rhino/Enterovirus (KATIA) Viral Specimen Source Influenza Type B (PCR) Misc Test Comment 09/04/24 09/05/24 09/05/24 23:56 04:17 04:58 WBC 42.2 H RBC 2.54 L Hgb 7.7 L Hct 23.1 L MCV 90.9 MCH 30.3 MCHC 33.3 RDW 23.8 H Plt Count 234 MPV 12.2 H Immature Gran % (Auto) Not Reportable Neut % (Auto) Not Reportable Lymph % (Auto) Not Reportable Sunflower % (Auto) Not Reportable Eos % (Auto) Not Reportable Baso % (Auto) Not Reportable Lymph # (Auto) Not Reportable Sunflower # (Auto) Not Reportable Eos # (Auto) Not Reportable Baso # (Auto) Not Reportable Abs Immat Gran (auto) Not Reportable Absolute Neuts (auto) Not Reportable Absolute Nucleated RBC Not Reportable Total Counted 100 Neutrophils % (Manual) 76 H Band Neutrophils % 4 Lymphocytes % (Manual) 8 L Monocytes % (Manual) 8 Eosinophils % (Manual) 1 Metamyelocytes % 1 Myelocytes % 1 Promyelocytes % (Man) 1 Nucleated RBC % Not Reportable Abs Neuts (Manual) 33.76 H Abs Lymphs (Manual) 3.37 Abs Monocytes (Manual) 3.37 H Absolute Eos (Manual) 0.42 Atypical Lymphocytes Present Smudge Cells Present Platelet Estimate Adequate Hypochromasia 1+ Poikilocytosis 1+ Ovalocytes 1+ Schistocytes None seen Puncture Site Artline ABG pH 7.387 ABG pCO2 38.7 ABG pO2 97.4 ABG PO2/FiO2 Ratio 1.62 ABG HCO3 22.7 ABG O2 Saturation 97.4 ABG O2 Content 10.4 L ABG Base Excess -2.1 A-a Gradient 287.8 Oxyhemoglobin 96.0 Carboxyhemoglobin 0.9 Methemoglobin 0.3 Reduced Hemoglobin 2.8 Total Hemoglobin 7.6 L* O2 Delivery Device Ventilator O2 Liters/Min Not Reportable Minute Volume Not Reportable Vent Rate 28 Vent Mode Cmv FiO2 60 Tidal Volume 370 PEEP 12 Peak Inspir Pressure Not Reportable Pressure Support Not Reportable Sodium 144 Potassium 3.4 Chloride 114 H Carbon Dioxide 23 Anion Gap 7 BUN 109 H* D Creatinine 1.07 H Estim Creat Clear Calc 35 Estimated GFR 51 L Glucose 114 H POC Capillary Glucose 113 H Calcium 11.7 H Phosphorus 2.8 Magnesium 2.1 Total Bilirubin 0.2 AST 73 H ALT 22 Alkaline Phosphatase 101 Total Protein 4.5 L Albumin 2.3 L Nasal RSV Type A (PCR) Nasal RSV Type B (PCR) Chlamy pneumoniae PCR Adenovirus DNA Human Bocavirus (KATIA) Coronavirus Type OC43 Coronavirus Type HKU1 Coronavirus Type 229E Coronavirus Type NL63 CMV Qnt PCR log IU/mL Human Metapneumovir PCR Influenza A (PCR) Influenza A (H1) RNA Influenza A (H3) PCR M. pneumoniae DNA Parainfluenza PCR Parainfluenza 2 (PCR) Parainfluenza 3 RNA (PCR) Parainfluenza 4 (PCR) Resp Viral Panel Intrp Rhino/Enterovirus (KATIA) Viral Specimen Source Influenza Type B (PCR) Misc Test Comment 09/05/24 07:32 WBC RBC Hgb Hct MCV MCH MCHC RDW Plt Count MPV Immature Gran % (Auto) Neut % (Auto) Lymph % (Auto) Sunflower % (Auto) Eos % (Auto) Baso % (Auto) Lymph # (Auto) Sunflower # (Auto) Eos # (Auto) Baso # (Auto) Abs Immat Gran (auto) Absolute Neuts (auto) Absolute Nucleated RBC Total Counted Neutrophils % (Manual) Band Neutrophils % Lymphocytes % (Manual) Monocytes % (Manual) Eosinophils % (Manual) Metamyelocytes % Myelocytes % Promyelocytes % (Man) Nucleated RBC % Abs Neuts (Manual) Abs Lymphs (Manual) Abs Monocytes (Manual) Absolute Eos (Manual) Atypical Lymphocytes Smudge Cells Platelet Estimate Hypochromasia Poikilocytosis Ovalocytes Schistocytes Puncture Site ABG pH ABG pCO2 ABG pO2 ABG PO2/FiO2 Ratio ABG HCO3 ABG O2 Saturation ABG O2 Content ABG Base Excess A-a Gradient Oxyhemoglobin Carboxyhemoglobin Methemoglobin Reduced Hemoglobin Total Hemoglobin O2 Delivery Device O2 Liters/Min Minute Volume Vent Rate Vent Mode FiO2 Tidal Volume PEEP Peak Inspir Pressure Pressure Support Sodium Potassium Chloride Carbon Dioxide Anion Gap BUN Creatinine Estim Creat Clear Calc Estimated GFR Glucose POC Capillary Glucose 101 Calcium Phosphorus Magnesium Total Bilirubin AST ALT Alkaline Phosphatase Total Protein Albumin Nasal RSV Type A (PCR) Nasal RSV Type B (PCR) Chlamy pneumoniae PCR Adenovirus DNA Human Bocavirus (KATIA) Coronavirus Type OC43 Coronavirus Type HKU1 Coronavirus Type 229E Coronavirus Type NL63 CMV Qnt PCR log IU/mL Human Metapneumovir PCR Influenza A (PCR) Influenza A (H1) RNA Influenza A (H3) PCR M. pneumoniae DNA Parainfluenza PCR Parainfluenza 2 (PCR) Parainfluenza 3 RNA (PCR) Parainfluenza 4 (PCR) Resp Viral Panel Intrp Rhino/Enterovirus (KATIA) Viral Specimen Source Influenza Type B (PCR) Misc Test Comment Quality VTE Prophylaxis VTE prophylaxis: pharmacologic ordered
[2024-09-05] MEDS: MICAFUNGIN SODIUM 100 MG in SODIUM CHLORIDE 0.9% IV 100 ML IVPB (10:58)
--- NOTE | 2024-09-05 11:28 | PCFNICU ---
ICU Rounding Note: Pt current nutrition is Tube feeding: Vital AF 1.2 @ 20 ml/h with flushes 30 ml q 4 h. Nutrition recommendation: No new recommendations. Advance tube feeding per MD. Goal rate is 40 ml/h Last recorded weight is 61.5 kg. Bowel Motility: Liquid stool per FMS Labs Reviewed: Hgb 7.7, Hct 23.1, Alb 2.3, BUN 109, Cre 1.07, Glu 114 Meds Noted: Fentanyl, versed, Reglan, Nimbex, Propofol @ 16.58 ml/h = 437 kcal. Skin: Stage 3 coccyx Additional Notes: Trickle feeds due to intolerance and high propofol. Continue to reassess for ability to advance. Following daily in ICU rounds. Monitoring tube feeding orders, weights, labs, tolerance, plan of care, vent settings, vitals Follow up Tuesday/Tuesday. Daily rounds.
--- NOTE | 2024-09-05 13:30 | P.CONNP_ITS ---
Assessment and Plan Assessment and plan (1) Azotemia: Code(s): R79.89 - Other specified abnormal findings of blood chemistry Status: Acute Assessment and Plan: * as note by labs on 09/05 * suspect multifactorial etiology: * high catabolic state * steroid use * infection * critical illness * previous FRANK/ARF * no evidence of GI bleed * no other culprit medications * follow trend of repeat labs (2) Acute respiratory failure: Code(s): J96.00 - Acute respiratory failure, unspecified whether with hypoxia or hypercapnia Status: Acute Assessment and Plan: * secondary to bilateral Pseudomonas pneumonia in an immunocompromised patient who was on methotrexate and hydroxychloroquine. * ARDS physiology noted * bronchoscopy (08/31) which did not show any LR hemorrhage or tracheobronchitis * BAL culture is growing Pseudomonas and Milagros glabrata * PCR for influenza RSV and COVID was negative * culture data negative to date * on stress dose steroids * prone positioning PRN (3) Pneumonia: Qualifiers: Laterality: bilateral Lung location: unspecified part of lung P neumonia type: due to unspecified organism Qualified Code(s): J18.9 - Pneumonia, unspecified organism Code(s): J18.9 - Pneumonia, unspecified organism Status: Acute Assessment and Plan: * as noted by recent imaging * on antibiotics * see #2 (4) Rheumatoid arthritis: Code(s): M06.9 - Rheumatoid arthritis, unspecified Status: Acute Assessment and Plan: * holding methotrexate and hydroxychloroquine (5) Toxic metabolic encephalopathy: Code(s): G92.8 - Other toxic encephalopathy Status: Acute Assessment and Plan: * presented with altered mental status and confusion * Head CT was negative * TSH was normal * reassess when off ventilator (6) Peripheral ischemia: Code(s): I99.8 - Other disorder of circulatory system Status: Acute Assessment and Plan: * discoloration/gangrene of all 10 fingers. * likely systemic issue related to sepsis/infection * monitor for now (7) Swelling of both upper extremities: Code(s): M79.89 - Other specified soft tissue disorders Status: Acute Assessment and Plan: * secondary to edema as it is bilateral * however, ultrasound of UEs showed extensive deep and superficial venous thrombosis throughout the bilateral upper extremities * on Lovenox (8) Hypoglycemia: Code(s): E16.2 - Hypoglycemia, unspecified Status: Acute Assessment and Plan: * noted earlier * blood sugars are stable now I will continue to follow the patient with you while she remains hospitalized and make further recommendations as deemed necessary. Thank you for allowing me to participate in the care of this patient. L History of Present Illness Reason for Consult Consult date: 09/05/24 Reason for consult: Other (azotemia/elevated BUN) Chief Complaint Chief complaint: sepsis, pneumonia, frank, hypokalemia History of Present Illness Narrative: Most of the information I obtained is from review of the electronic medical record as well as discussion with the physician/nurses involved in the patient's care as she is unable to provide me with any history as she is intubated and on mechanical ventilation. The patient is a 68-year-old female with a past medical history as outlined below presented to [facility] Emergency Room via EMS due to confusion. Apparently, patient was recently noted to have a ulceration on her buttocks. She apparently saw Dermatology for this issue and was started on medication and the presumption was that this was a possible shingles outbreak. However, she also had been having issues with ulcers over her labia for last couple weeks as well and this was thought to be a possible herpes outbreak as well as she has been on/off antiviral therapy since June of this year. the patient also apparently gave a history of frequent cough for the last few days but the severity and extent of this is not clear. On the day of admission, the patient went into the bedroom and saw the patient sitting up in bed talking gibberish. When the patient went to call EMS, the patient was apparently repeatedly asking the same question to her about whether not he was feeling okay. On EMS arrival, she was found to be hypoglycemic with a blood glucose in the 40s and received 250 cc of D10 EN route to the hospital which eventually got her glucose up to the 130 range. By the time of her arrival to the emergency room, her blood sugars had stabilized but then a couple of hours later dropped down again to the 20ish range. She was noted be febrile with a temperature of 100.9? but with stable blood pressures in the 110 systolic range. However, she was noted be tachypneic, tachycardic and still with fluctuating mentation. Further testing demonstrated evidence of early sepsis with elevated liver function tests, severe lactic acidosis, and imaging studies that demonstrated multifocal pneumonia. She received aggressive IV fluid resuscitation and after appropriate cultures were obtained, was initiated on broad-spectrum antibiotics. Her mentation did improve towards the end of her ER stay and her subsequent admission to IMU For further evaluation and therapy. Over the course of the evening on admission, the patient's respiratory status continued to worsen with increasing oxygen requirements. Her mentation improved and that she was able to give more history with regard to the fact that her shortness of breath started on the day of admission in association with a dry cough but no fevers, chills chest pain abdominal pain, diarrhea, constipation, hematochezia, melena, or dysuria. However, she still appear to be in mild respiratory distress given her ongoing tachypnea and tachycardia. She was subsequently transferred to the ICU for closer monitoring and given her ongoing respiratory decline, was intubated and placed on mechanical ventilation. Since her admission to the ICU, she has remained intubated and on mechanical ventilation. She was seen in consultation by Pulmonary his given her imaging findings, acute respiratory failure, and immunocompromised state, she underwent a bronchoscopy and subsequent be a well cultures are growing Pseudomonas and Milagros glabrata. She is on broad-spectrum antibiotics as well as antifungal therapy for treatment of this issue. Renal consultation was requested due to her elevated BUN /azotemia as noted by her labs on this morning with her BUN up to 109 from 81 yesterday. Is difficult to say if she is having any side effects from this issue since she is on mechanical ventilation. The likely etiology of her high BUN is probably due to her highly catabolic state combined with infection and the necessity of broad- spectrum antibiotics and antifungal therapy to treat her current pneumonia in conjunction with steroid therapy. I suppose her could be prerenal factors playing a role given her insensible losses and fevers as well. from review of her records, she has normal renal function at baseline in association with a normal creatinine and BUN prior to this hospitalization. Currently, the time my evaluation, she is intubated/ sedated and remains on mechanical ventilation. Review of Systems 2 Review of Systems: As per HPI. [facility] Past Medical History Medical History Depression Anxiety Hypovitaminosis D Chronic ethmoidal sinusitis Left knee DJD Chronic right shoulder pain Left shoulder pain Anemia Immunosuppressed status Osteoarthritis Glaucoma Iron deficiency anemia Crohn's disease Gastroesophageal reflux disease Mixed hyperlipidemia Osteoporosis Psoriatic arthritis RLS (restless legs syndrome) Rheumatoid arthritis Surgical History Surgical History Status post cataract extraction of both eyes with insertion of intraocular lens S/P total knee arthroplasty LT TKA 05/18/23 Status post bilateral total hip replacement Status post ankle fusion With subsequent hardware removal and redo. Status post rotator cuff repair Bilateral. Status post cholecystectomy History of section Status post total right knee replacement History of temporal artery biopsy In October 2016. No pathologic abnormalities noted. Family History Family History Mother Family history of osteoporosis Cerebrovascular accident Family history of Alzheimer's disease Family history of coronary artery disease Acute myocardial infarction Family history of malignant melanoma Family history of malignant neoplasm of ovary Heart disease Father Family history of coronary artery disease Family history of heart disease in male family member before age 55 Family history of lung cancer, Onset Age: 48 Sibling Family history of lung cancer Family history of malignant melanoma Family history of malignant neoplasm of urinary bladder Heart disease Sibling Cancer Heart disease Other Family history of malignant neoplasm Hypertension Social History Social History Social History: The patient lives in [place] with her ex . They have been since 2006 but still live in the same home. They have 2 dogs that are mostly outside. 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 She is a lifelong nonsmoker and denies alcohol and drug abuse. She and her have 1 son. Code status: Full code Surrogate decision maker: Ex- and Debra (daughter in-law) Smoking status: Never smoker Additional smoking assessment comments: DENIES ANY FORM OF TOBACCO USE Alcohol intake: current Alcohol use details: Rare alcohol use once or twice a year Substance use: never Substance use type: does not use Do You Feel Safe in your Home?: Yes Lack of Transportation: No Lack of Food: Never True Current Housing: I Have Housing Concerned About Future Housing: No Difficulty Paying Gas/Electric Bills: No Difficulty Paying for Meds: No Currently Unemployed: No Education: Don't Know Difficulty w/ Childcare or Family Care: No Living arrangements: with family Occupation/Education: retired Gender identity (if verbalized by the patient): Female Sexual Orientation (if Verbalized by the Patient): Straight or Heterosexual Spiritual care concerns: No Agree to blood products: Yes Meds Home Medications and Allergies Home Medications ?Medication ?Instructions ?Recorded ?Confirmed ?Type ascorbic acid (vitamin C) 1,000 mg 1 gm PO DAILY 04/26/19 08/30/24 History tablet celecoxib 200 mg capsule 200 mg PO BID 04/26/19 08/30/24 History cholecalciferol (vitamin D3) 25 1,000 unit PO DAILY 04/26/19 08/30/24 History mcg (1,000 unit) capsule ferrous sulfate 325 mg (65 mg 325 mg PO DAILY 04/26/19 08/30/24 History iron) tablet (Feosol) folic acid 1 mg tablet 1 mg PO DAILY 04/26/19 08/30/24 History lactobacillus combination no.8 3 3,000 mmu cells PO DAILY 04/26/19 08/30/24 History billion cell capsule (Adult Probiotic) multivitamin 1 tablet PO DAILY 04/26/19 08/30/24 History magnesium 250 mg tablet 250 mg PO DAILY 03/04/20 08/30/24 History zinc 50 mg tablet 50 mg PO DAILY 03/04/20 08/30/24 History methotrexate sodium 2.5 mg tablet 2.5 mg PO .COMPLEX 01/21/21 08/30/24 History esomeprazole magnesium 40 mg 40 mg PO DAILY 02/03/22 08/30/24 History capsule,delayed release (Nexium) melatonin 10 mg capsule 10 mg PO DAILY PRN Insomnia 08/26/22 08/30/24 History tramadol 50 mg tablet 50 mg PO Q6H PRN Pain 01/27/23 08/30/24 History calcium 600 mg (as 1 tablet PO DAILY 05/04/23 08/30/24 History carbonate)-vitamin D3 10 mcg (400 unit) tablet (Calcium 600 + D(3)) hydroxychloroquine 200 mg tablet 200 mg PO DAILY 05/04/23 08/30/24 History sucralfate 1 gram tablet 1 g PO BID 05/04/23 08/30/24 History dextromethorphan-guaifenesin 30 See Rx Instructions PO Q12H PRN 06/21/23 08/30/24 Rx mg-600 mg tablet extended cough #30 tabs [id number] hr (Mucinex DM) fexofenadine 60 mg tablet (Glendy 60 mg PO Q12H 09/05/23 08/30/24 History Allergy) fluticasone propionate 50 1 spray intranasal PRN PRN Allergy 10/26/23 08/30/24 Rx mcg/actuation nasal Symptoms #16 grams spray,suspension prednisolone sodium phosphate 1 % 1 drp RIGHT EYE Q12H concern for 12/27/23 08/30/24 Rx eye drops glaucoma #10 mL escitalopram oxalate 20 mg tablet See Rx Instructions .Route 05/29/24 08/30/24 Rx .COMPLEX #90 tabs upadacitinib 15 mg tablet,extended 15 mg PO DAILY 05/29/24 08/30/24 History release 24 hr (Rinvoq) betamethasone valerate 0.1 % 1 applic topical BID #15 grams 07/19/24 08/30/24 Rx topical ointment alprazolam 0.5 mg tablet 0.5 mg PO BID PRN anxiety #60 tabs 07/30/24 08/30/24 Rx doxycycline hyclate 100 mg tablet 100 mg PO BID 08/30/24 08/30/24 History Allergies Allergy/AdvReac Type Severity Reaction Status Date / Time adalimumab Allergy Mild Itching Verified 08/07/24 11:55 codeine AdvReac Mild Itching Verified 08/07/24 11:55 Vital Signs Vital Signs Temp Pulse Resp BP Pulse Ox O2 Del Method FiO2 09/05/24 13:12 93 97 Mechanical Ventilation 60 09/05/24 13:10 91 28 H 111/59 L 97 09/05/24 13:00 93 28 H 90 60 09/05/24 12:02 119/70 09/05/24 12:00 95 28 H 96 60 09/05/24 12:00 96 09/05/24 12:00 96 28 H 93 Mechanical Ventilation 60 09/05/24 12:00 60 09/05/24 12:00 96.9 F L 95 28 H 117/70 93 09/05/24 12:00 97 28 H 09/05/24 12:00 97 28 H 09/05/24 12:00 97 28 H 09/05/24 12:00 97 115/66 09/05/24 12:00 97 28 H 115/66 09/05/24 11:13 105 H 93 Mechanical Ventilation 60 09/05/24 11:00 106 H 28 H 93 60 09/05/24 10:41 109 H 28 H 09/05/24 10:33 111 H 28 H 117/67 09/05/24 10:10 109 H 28 H 09/05/24 10:01 122/70 09/05/24 10:00 115 H 28 H 90 60 09/05/24 10:00 115 H 09/05/24 10:00 116 H 28 H 09/05/24 10:00 116 H 125/72 09/05/24 10:00 116 H 28 H 09/05/24 10:00 116 H 28 H 09/05/24 10:00 116 H 28 H 125/72 09/05/24 10:00 96.8 F L 115 H 28 H 158/85 H 90 09/05/24 09:00 124 H 28 H 92 60 09/05/24 08:59 124 H 28 H 09/05/24 08:56 124 H 28 H 09/05/24 08:55 124 H 28 H 09/05/24 08:27 129 H 94 Mechanical Ventilation 60 09/05/24 08:19 129 H 28 H 09/05/24 08:17 127 H 28 H 143/76 H 09/05/24 08:06 127 H 28 H 143/76 H 09/05/24 08:01 149/79 H 09/05/24 08:00 120 H 28 H 94 60 09/05/24 08:00 105 H 28 H 93 Mechanical Ventilation 60 09/05/24 08:00 60 09/05/24 08:00 127 H 143/76 H 09/05/24 08:00 127 H 28 H 09/05/24 08:00 98.5 F 129 H 28 H 158/85 H 94 09/05/24 08:00 129 H 09/05/24 06:00 115 H 24 H 119/75 91 09/05/24 06:00 115 H 28 H 123/68 09/05/24 06:00 115 H 28 H 09/05/24 06:00 115 H 28 H 09/05/24 06:00 115 H 123/68 09/05/24 06:00 115 H 28 H 09/05/24 06:00 116 H 09/05/24 05:13 115 H 92 Mechanical Ventilation 60 09/05/24 04:00 97.8 F 117 H 28 H 119/75 93 09/05/24 04:00 118 H 28 H 94 Mechanical Ventilation 60 09/05/24 04:00 60 09/05/24 04:00 118 H 09/05/24 04:00 117 H 28 H 119/68 09/05/24 04:00 117 H 28 H 09/05/24 04:00 117 H 28 H 09/05/24 04:00 111 H 119/68 09/05/24 04:00 117 H 28 H 09/05/24 02:53 117 H 28 H 09/05/24 02:53 117 H 28 H 09/05/24 02:00 116 H 24 H 122/77 92 09/05/24 02:00 117 H 09/05/24 02:00 117 H 28 H 122/77 09/05/24 02:00 117 H 28 H 09/05/24 02:00 117 H 122/77 09/05/24 02:00 117 H 28 H 09/05/24 02:00 117 H 28 H 09/05/24 01:21 116 H 94 Mechanical Ventilation 60 09/05/24 01:04 116 H 28 H 09/05/24 01:04 116 H 28 H 09/05/24 00:00 70 09/05/24 00:00 115 H 09/05/24 00:00 116 H 28 H 94 Mechanical Ventilation 60 09/05/24 00:00 116 H 28 H 130/72 09/05/24 00:00 116 H 130/70 09/05/24 00:00 116 H 28 H 09/05/24 00:00 116 H 28 H 09/05/24 00:00 116 H 28 H 09/05/24 00:00 98.9 F 113 H 24 H 128/78 88 L 09/04/24 23:12 112 H 90 Mechanical Ventilation 70 09/04/24 22:00 106 H 28 H 128/71 92 09/04/24 22:00 106 H 09/04/24 22:00 106 H 130/72 09/04/24 22:00 106 H 28 H 09/04/24 22:00 106 H 28 H 09/04/24 22:00 106 H 28 H 130/72 09/04/24 22:00 106 H 28 H 130/72 09/04/24 22:00 106 H 28 H 09/04/24 22:00 106 H 28 H 09/04/24 21:35 101 H 133/75 09/04/24 21:15 101 H 142/74 H 09/04/24 21:12 101 H 28 H 09/04/24 21:12 101 H 28 H 09/04/24 20:00 98.3 F 90 24 H 139/89 95 09/04/24 20:00 60 09/04/24 20:00 90 09/04/24 20:00 90 28 H 95 Mechanical Ventilation 60 09/04/24 20:00 90 120/65 09/04/24 20:00 90 28 H 09/04/24 20:00 90 28 H 09/04/24 20:00 90 28 H 120/65 09/04/24 20:00 90 28 H 09/04/24 19:54 90 94 Mechanical Ventilation 60 09/04/24 18:24 97.1 F L 09/04/24 18:00 89 28 H 103/56 L 94 09/04/24 18:00 89 09/04/24 18:00 91 28 H 09/04/24 18:00 88 28 H 112/60 09/04/24 18:00 89 124/79 09/04/24 18:00 88 28 H 09/04/24 18:00 88 28 H 09/04/24 17:35 89 95 Mechanical Ventilation 60 09/04/24 16:23 89 28 H 102/57 L 09/04/24 16:09 90 119/62 09/04/24 16:07 89 28 H 121/63 09/04/24 16:00 89 28 H 09/04/24 16:00 89 28 H 09/04/24 16:00 89 28 H 09/04/24 16:00 89 09/04/24 16:00 60 09/04/24 16:00 89 28 H 93 Mechanical Ventilation 60 09/04/24 16:00 114/60 09/04/24 16:00 97.0 F L 89 28 H 132/83 93 09/04/24 15:39 90 28 H 09/04/24 15:39 90 28 H 09/04/24 15:39 89 28 H 09/04/24 15:39 89 28 H 09/04/24 15:30 89 28 H 114/59 L Exam 2 Narrative: GENERAL APPEARANCE: ill appearing Caucasinc female intubated/sedated and on mechanical ventilation HEENT: normocephalic, atraumatic, normal conjunctiva and sclera, nares patient NECK: no lymphadenopathy, thyromegaly, or JVD MOUTH: normal lips, teeth, and gums; ETT in place CARDIOVASCULAR: tachycardic, normal S1 and S2, no rub RESPIRATORY: coarse breath sounds ABDOMEN: soft, nontender, nondistended, diminshed bowel sounds present EXTREMITIES: no evidence of cyanosis, clubbing, + UE edema; discolored fingers bilaterally NEUROLOGICAL: alert and oriented x 3; CN II - XII intact bilaterally; no focal deficits noted Results Lab Results 09/09/24 04:40 09/09/24 04:40 Lab results: Most recent lab results ABG pH 7.387 (7.350-7.450) 09/05/24 04:58 ABG pCO2 38.7 mmHg (35.0-45.0) 09/05/24 04:58 ABG pO2 97.4 mmHg (80.0-100.0) 09/05/24 04:58 ABG HCO3 22.7 mEq/l (22.0-26.0) 09/05/24 04:58 ABG O2 Saturation 97.4 % (95.0-100.0) 09/05/24 04:58 Calcium 11.7 mg/dL (8.4-10.2) H 09/05/24 04:17 Phosphorus 2.8 mg/dL (2.5-4.5) 09/05/24 04:17 Magnesium 2.1 mg/dL (1.6-2.3) 09/05/24 04:17
[2024-09-05] MEDS: prednisoLONE ACETATE 1% OPHTH 5 ML 1 DROP RIGHT EYE ×2 (13:31→21:43)
[2024-09-05] MEDS: MINERAL OIL/WHITE PETROLATUM OINTMENT 1 APPLIC EACH EYE ×2 (13:32→21:43)
--- NOTE | 2024-09-05 13:39 | PC.NURSE ---
Patient turned supine at 1310. tolerated well. All vital signs remain stable on patient at this time.
[2024-09-06] VITALS (48 sets, daily range): BP systolic 110–190; BP diastolic 58–100; PULSE 99–140; RESP 25–40; TEMP 36.3–37.1; O2SAT 74–100
[2024-09-06] MEDS: METOCLOPRAMIDE HCL 10 MG/10 ML SOLN UDC FEED TUBE ×5 (00:30→23:58)
[2024-09-06 01:53] LABS: Chlamydia pneumoniae Source BAL; Chlamydia pneumoniae by PCR NOT DETECTED
[2024-09-06] MEDS: PROPOFOL IV EMULSION 100 ML 12.89 MG IV CONT (04:00)
[2024-09-06 04:58] LABS: Alveolar/Arterial O2 Gradient 185.7 mmHg; Carboxyhemoglobin 1.0 % THb (0-2.0); Fractional Inspired Oxygen 50 %; HCO3 ABG 21.9 mEq/l (22.0-26.0); Methemoglobin ABG 0.3 %THb (0-1.5); Oxygen Content ABG 12.4 %vol (16.0-22.0); Oxygen Saturation ABG 98.7 % (95.0-100.0); PCO2 ABG 34.2 mmHg (35.0-45.0); PO2 ABG 132.3 mmHg (80.0-100.0); PO2 FiO2 Ratio Arterial Blood 2.65 %; Reduced Hemoglobin 1.6 %THb (0-5.0)
[2024-09-06 05:12] LABS: Site Drawn ARTLINE
[2024-09-06 05:13] LABS: Arterial Blood Gas Tidal Volume 370 ml; Arterial Blood Gas Ventilator rate 28 /MIN
[2024-09-06] MEDS: FENTANYL 2,500MCG/NS250ML(*CRX 2,500 MCG/250 ML BAG 22.5 MCG IV CONT (06:00)
[2024-09-06] MEDS: MIDAZOLAM 100MG/NS 100ML(*CRX) 100 MG/100 ML BAG 10 MG IV CONT (06:00)
[2024-09-06 06:11] LABS: Hematocrit 24.7 % (37.0-47.0); Hemoglobin 8.1 g/dL (12.0-15.0); Mean Corpuscular HGB Conc 32.8 g/dl (32-36); Mean Corpuscular Hemoglobin 30.1 pg (26-34); Mean Corpuscular Volume 91.8 fl (80-100); Platelet Count Result 384 k/mm3 (150-375); Red Blood Count 2.69 M/mm3 (4.2-5.4)
[2024-09-06 06:38] LABS: Alanine Aminotransferase 22 U/L (6-35); Albumin Level 2.5 g/dL (3.5-5.1); Alkaline Phosphatase 124 U/L (38-126); Anion Gap 8 mmol/L (4-12); Aspartate Amino Transferase 64 U/L (14-36); Bilirubin,Total 0.4 mg/dL (0.2-1.3); Blood Urea Nitrogen 119 mg/dL (7-17); Calcium 12.7 mg/dL (8.4-10.2); Carbon Dioxide 20 mmol/L (22-30); Chloride 116 mmol/L (98-107); Estimated CRCL calculation 37 ml/min; Estimated Glomerular Filt Rate 55; Glucose 110 mg/dL (65-110); Magnesium 2.1 mg/dL (1.6-2.3); Potassium 3.6 mmol/L (3.4-5.0); Sodium 144 mmol/L (137-145); Total Protein 5.1 g/dL (6.3-8.2)
[2024-09-06] MEDS: CENTRAL LINE FLUSH 10 ML IV PUSH ×4 (06:46→21:01)
[2024-09-06] MEDS: ACYCLOVIR 200 MG CAPSULE 400 MG FEED TUBE ×3 (06:46→21:00)
[2024-09-06 06:52] LABS: White Blood Count 51.2 K/mm3 (4.5-10.0)
[2024-09-06 06:53] LABS: Band Neutrophils Percent 21 % (0-6); Eosinophils Absolute Manual 1.02 K/mm3 (0.02-0.50); Eosinophils Percent Manual 2 % (0-4); Lymphocytes Absolute Manual 15.36 K/mm3 (1.1-4.5); Lymphocytes Percent Manual 30 % (18-44); Metamyelocytes Percent 3 %; Monocytes Absolute Manual 4.09 K/mm3 (0.1-0.90); Monocytes Percent Manual 8 % (3-9); Myelocytes Percent 3 %; Neutrophils Absolute Manual 27.64 K/mm3 (1.3-6.7); Neutrophils Percent Manual 33 % (46-73); Total Cells Counted 100
[2024-09-06 06:54] LABS: Anisocytosis 2+; Hypochromasia 2+
[2024-09-06 06:55] LABS: Polychromasia 1+; Schistocytes None Seen; Stomatocytes 1+; Tear Drop Cells 1+
[2024-09-06] MEDS: CEFEPIME 2 GM/NS 50 ML 2 GM/50 ML BAG IVPB (08:42)
[2024-09-06] MEDS: PANTOPRAZOLE SODIUM IV 40 MG VIAL IV PUSH ×2 (08:42→21:00)
[2024-09-06] MEDS: MICAFUNGIN SODIUM 100 MG in SODIUM CHLORIDE 0.9% IV 100 ML IVPB (08:42)
[2024-09-06] MEDS: HYDROCORTISONE SODIUM SUCCINATE 100 MG/2 ML VIAL 20 MG IV PUSH (08:42)
[2024-09-06] MEDS: MINERAL OIL/WHITE PETROLATUM OINTMENT 1 APPLIC EACH EYE ×2 (09:07→21:00)
[2024-09-06] MEDS: prednisoLONE ACETATE 1% OPHTH 5 ML 1 DROP RIGHT EYE ×2 (09:07→21:01)
--- NOTE | 2024-09-06 10:51 | PCFNICU ---
ICU Rounding Note: Pt current nutrition is Vital AF 1.2 @ 20 ml/h due to tolerance issues. Nutrition recommendation: Increase Vital AF 1.2 to 30 ml/h and monitor for tolerance Last recorded weight is 59.6 kg. Bowel Motility: +2 BMS per FMS Labs Reviewed: Hgb 8.1, Hct 24.7, Alb 2.5, BUN 119, Cre 1.01, Glu 121 Meds Noted: Sedation i s being turned down. Fentanyl, versed, protonix, reglan Skin: Stage 3 pressure injury to coccyx Additional Notes: Pt improving a little and able to turn sedation down. Increasing TF to 30 ml/h with eventual goal 50 ml/h. Following daily in ICU rounds. Monitoring tube feeding orders, weights, labs, tolerance, plan of care, vent settings, vitals Follow up Tuesday/Tuesday. Daily rounds.
--- NOTE | 2024-09-06 11:18 | P.PNINT_ITS ---
Progress Note: A&P Assessment and Plan (1) Acute respiratory failure: Code(s): J96.00 - Acute respiratory failure, unspecified whether with hypoxia or hypercapnia Status: Acute Assessment and Plan: Acute respiratory failure and sepsis secondary to bilateral Pseudomonas pneumonia in an immunocompromised patient who was on methotrexate and hydroxychloroquine. -ARDS physiology -08/30: Intubated for tachypnea, tachycardia, respiratory distress 08/31: bronchoscopy which did not show any LR hemorrhage or tracheobronchitis 08/31: BAL culture is growing Pseudomonas which is pansensitive. Also Milagros glabrata -08/29: Blood culture negative -08/20: sputum culture negative -09/04: Repeat blood cultures are negative PCR for influenza RSV and COVID was negative Urine Legionella negative and pneumococcal antigen negative Negative Mycoplasma IgM Continue hydrocortisone but will decrease dose as patient was on chronic low- dose prednisone -09/04: Patient placed in prone position due to increased oxygen requirements secondary to ARDS and Pseudomonas pneumonia. Patient was also paralyzed with rocuronium and started on Nimbex infusion for ventilator synchrony 09/05: prone position, ABGs reviewed, ventilator adjusted. Patient will be placed in supine position, off Nimbex infusion 09/06: Patient was placed in supine position yesterday and remains in supine position this morning. Currently on 45% FiO2 and peep of 12 with good O2 sats. I have asked the bedside RN to start weaning sedation, start Precedex infusion if needed -continue cefepime and Levaquin. Given that patient's WBC count is elevated will switch cefepime to meropenem (09/06). Elevated WBC count could also be related to steroids 08/29 CT Chest Dense bilateral multifocal infiltrates, predominantly perihilar, as detailed above. No additional source is detected for patient's profound sepsis (2) Gastroesophageal reflux disease: Qualifiers: Esophagitis presence: esophagitis presence not specified Qualified Code(s): K21.9 - Gastro-esophageal reflux disease without esophagitis Code(s): K21.9 - Gastro-esophageal reflux disease without esophagitis Status: Acute Assessment and Plan: PPI q.12 hours (3) FRANK (acute kidney injury): Code(s): N17.9 - Acute kidney failure, unspecified Status: Acute Assessment and Plan: Patient presented with elevated creatinine which was likely secondary to sepsis. Creatinine improved with IV fluids Cut down on further IV fluids and patient was given IV fluids Urine output improved. Patient was given Lasix yesterday to prevent volume ov erload 09/02 Overnight creatinine has slightly increased again Hold diuretics. 25% albumin was given 09/03 creatinine improved and states in normal range Will try to maintain map above 65 mmHg Monitor urine output electrolytes and creatinine Status post IV Lasix with adequate urine output, [place] catheter for accurate I&Os increased BUN and hypercalcemia -discussed with Nephrology, will diurese patient with Lasix today, will evaluate on 09/07 (4) Sepsis: Qualifiers: Sepsis acute organ dysfunction status: with acute organ dysfunction Sepsis type: sepsis due to unspecified organism Severe sepsis acute organ dysfunction type: encephalopathy Severe sepsis shock status: without septic shock Qualified Code(s): A41.9 - Sepsis, unspecified organism; R65.20 - Severe sepsis without septic shock; G93.41 - Metabolic encephalopathy Code(s): A41.9 - Sepsis, unspecified organism Status: Acute Assessment and Plan: See above (5) Immunosuppressed status: Code(s): D89.9 - Disorder involving the immune mechanism, unspecified Status: Acute Assessment and Plan: Patient was on steroids and immunosuppressants at home (6) Rheumatoid arthritis: Code(s): M06.9 - Rheumatoid arthritis, unspecified Status: Acute Assessment and Plan: Hold methotrexate and hydroxychloroquine (7) Toxic metabolic encephalopathy: Code(s): G92.8 - Other toxic encephalopathy Status: Acute Assessment and Plan: Patient presented with altered mental status and confusion which appears to be encephalopathy ache. Patient has sepsis and was on several medication including tramadol and benzodiazepine at home Head CT was negative TSH was normal Patient obviously now sedated and intubated. Patient has been on benzodiazepine and pain medications chronically and requiring significant amount of medications to keep her sedated (8) Pneumonia: Qualifiers: Laterality: bilateral Lung location: unspecified part of lung Pneumonia type: due to unspecified organism Qualified Code(s): J18.9 - Pneumonia, unspecified organism Code(s): J18.9 - Pneumonia, unspecified organism Status: Acute Assessment and Plan: See above (9) Urinary tract infection: Qualifiers: Hematuria presence: with hematuria Urinary tract infection type: site unspecified Qualified Code(s): N39.0 - Urinary tract infection, site not specified; R31.9 - Hematuria, unspecified Code(s): N39.0 - Urinary tract infection, site not specified Status: Acute Assessment and Plan: UA suggestive of UTI 08/29: Urine cultures - negative (10) Herpes labialis: Code(s): B00.1 - Herpesviral vesicular dermatitis Status: Acute Assessment and Plan: Continue acyclovir through tube (11) Hypoglycemia: Code(s): E16.2 - Hypoglycemia, unspecified Status: Acute Assessment and Plan: Patient had couple episodes of hypoglycemia early in the course. OFF D10 infusion -blood sugars are stable as patient now on tube feed (12) Ileus: Code(s): K56.7 - Ileus, unspecified Status: Acute Assessment and Plan: Although bowel sounds are present patient has not been tolerating tube feeds with very high residuals. -On Tube feeds 20 mL/hour. Continue reglan, will increase tube feeds gradually to goal -patient also on propofol (13) Peripheral ischemia: Code(s): I99.8 - Other disorder of circulatory system Status: Acute Assessment and Plan: Patient has developed discoloration/gangrene of all 10 fingers. likely systemic presentation suggest against vascular clot, septic emboli, pseudomonal infection Radial pulses are dopplerable Blood pressure are adequate Monitor maintain mean arterial pressure above 65 mmHg -discoloration on her fingers are improving, also blistering noted on some of the fingers, continue to monitor (14) Swelling of both upper extremities: Code(s): M79.89 - Other specified soft tissue disorders Status: Acute Assessment and Plan: Likely secondary to edema as it is bilateral 09/03: Bilateral upper extremity venous Doppler showed extensive deep and superficial venous thrombosis throughout the bilateral upper extremities -continue therapeutic Lovenox IV q.12 hours Plan DVT prophylaxis -therapeutic Lovenox Stress ulcer prophylaxis -Protonix IV q.12 hours Nutrition -tolerating tube feeds at 20 mL/hour, continue Reglan and will increase tube feeds gradually to goal Code Status - DNR Total Critical Care Time - 34 minutes Discussed with patient's , son and [id number], son is the POA. Updated them with patient's condition, plan of care. I explained to them that she has severe Pseudomonas pneumonia, possible septic emboli of her digits on her hand bilaterally. Patient is in prone position, will be placing her in supine position and will place a central line and arterial line to which they are agreeable. I also discussed with them code status and the p.o. has made her DNR. Due to a high probability of clinically significant, life threatening deterioration, the patient required my highest level of preparedness to intervene emergently and I personally spent this critical care time directly and personally managing the patient. This critical care time included obtaining a history; examining the patient; pulse oximetry; ordering and review of studies; arranging urgent treatment with development of a management plan; evaluation of patient's response to treatment; frequent reassessment; and discussions with other providers. It was exclusive of separately billable procedures and treating other patients and teaching time. Please see Assessment and Plan section and the rest of the note for further information on patient assessment and treatment Subjective Date/time seen: 09/06/24 11:18 Interval history: 68-year-old with a history of rheumatoid arthritis, Crohn's, on immunosuppressive medications, GERD admitted to ICU for pneumonia and respiratory failure requiring intubation and mechanical ventilation Reason for consult: Acute respiratory failure, ARDS physiology, sepsis, encephalopathy, pneumonia, herpes labialis, hyperglycemia, ileus, bilateral upper extremity DVTs 09/06/2024: Patient seen and examined the ICU, remains intubated on CMV mode of ventilation, peep of 12, 45% FiO2. In supine position. Sedated with fentanyl, Versed and propofol infusions. Off Nimbex, tolerating tube feeds, adequate urine output, afebrile Review of Systems Review of Systems: ROS unobtainable: Yes unobtainable due to endotracheal tube, unobtainable due to medical condition and unobtainable due to mental status Exam Narrative: General: Pt is now sedated, intubated, in Supine position Lungs/Chest: Coarse breath sounds bilaterally, decreased at bases, no wheezing Cardiac: Tachycardia RRR. Normal S1 S2. No murmurs Circulation: Bilateral radial pulses dopplerable and bilateral pedal pulses are palpable, Abdomen: Decreased bowel sounds. Soft. NT. ND. Extremities: Warm edema of both arms right more than left with some weeping : Obregon in place Neurologic: Prior to intubation patient was AO x3 and was moving all 4 extremities, PERRL now sedated and intubated, Skin: 08/30 edema with breakdown of the skin which appears to be popped blisters on right labia. She also has several scabbed wounds on her both legs which are in various healing stage but no open or infected wound. All 10 fingers discoloration is improving, blisters on some of the fingers. No discoloration noted on the toes bilaterally Objective Data Vital Signs Vital Signs: Vital Signs - 24 hr 09/05/24 12:00 09/05/24 12:00 09/05/24 12:00 Temperature Pulse Rate 97 97 97 Respiratory Rate 28 H 28 H Blood Pressure 115/66 115/66 Pulse Oximetry Oxygen Delivery Fraction of Inspired Oxygen 09/05/24 12:00 09/05/24 12:00 09/05/24 12:00 Temperature 96.9 F L Pulse Rate 97 97 95 Respiratory Rate 28 H 28 H 28 H Blood Pressure 117/70 Pulse Oximetry 93 Oxygen Delivery Fraction of Inspired Oxygen 09/05/24 12:00 09/05/24 12:00 09/05/24 12:00 Temperature Pulse Rate 96 96 Respiratory Rate 28 H Blood Pressure Pulse Oximetry 93 Oxygen Delivery Mechanical Ventilation Fraction of Inspired Oxygen 60 60 09/05/24 12:00 09/05/24 12:02 09/05/24 13:00 Temperature Pulse Rate 95 93 Respiratory Rate 28 H 28 H Blood Pressure 119/70 Pulse Oximetry 96 90 Oxygen Delivery Fraction of Inspired Oxygen 60 60 09/05/24 13:10 09/05/24 13:12 09/05/24 13:53 Temperature Pulse Rate 91 93 91 Respiratory Rate 28 H 28 H Blood Pressure 111/59 L 109/58 L Pulse Oximetry 97 97 Oxygen Delivery Mechanical Ventilation Fraction of Inspired Oxygen 60 09/05/24 14:00 09/05/24 14:00 09/05/24 14:00 Temperature Pulse Rate 91 90 91 Respiratory Rate 28 H Blood Pressure 107/57 L Pulse Oximetry Oxygen Delivery Fraction of Inspired Oxygen 09/05/24 14:00 09/05/24 14:00 09/05/24 14:00 Temperature Pulse Rate 91 91 91 Respiratory Rate 28 H 28 H 28 H Blood Pressure 108/57 L Pulse Oximetry Oxygen Delivery Fraction of Inspired Oxygen 09/05/24 14:00 09/05/24 14:02 09/05/24 14:44 Temperature 97.8 F Pulse Rate 90 91 90 Respiratory Rate 28 H 28 H Blood Pressure 106/57 L Pulse Oximetry 97 97 Oxygen Delivery Mechanical Ventilation Fraction of Inspired Oxygen 60 09/05/24 14:44 09/05/24 14:52 09/05/24 16:00 Temperature 96.5 F L Pulse Rate 90 94 Respiratory Rate 28 H 28 H Blood Pressure 111/61 Pulse Oximetry 97 Oxygen Delivery Fraction of Inspired Oxygen 55 09/05/24 16:00 09/05/24 16:00 09/05/24 16:00 Temperature Pulse Rate 94 94 Respiratory Rate 28 H Blood Pressure Pulse Oximetry Oxygen Delivery Fraction of Inspired Oxygen 55 09/05/24 16:00 09/05/24 16:00 09/05/24 16:00 Temperature Pulse Rate 94 94 94 Respiratory Rate 28 H 28 H 28 H Blood Pressure Pulse Oximetry 97 Oxygen Delivery Mechanical Ventilation Fraction of Inspired Oxygen 60 09/05/24 17:00 09/05/24 17:51 09/05/24 18:00 Temperature 97.5 F L Pulse Rate 101 H 101 H Respiratory Rate Blood Pressure 114/61 Pulse Oximetry 97 96 Oxygen Delivery Mechanical Ventilation Fraction of Inspired Oxygen 50 50 09/05/24 18:00 09/05/24 18:00 09/05/24 18:00 Temperature Pulse Rate 101 H 101 H 101 H Respiratory Rate 28 H 28 H 28 H Blood Pressure Pulse Oximetry Oxygen Delivery Fraction of Inspired Oxygen 09/05/24 19:06 09/05/24 19:06 09/05/24 19:06 Temperature Pulse Rate 103 H 103 H 103 H Respiratory Rate 28 H 28 H 28 H Blood Pressure Pulse Oximetry Oxygen Delivery Fraction of Inspired Oxygen 09/05/24 19:06 09/05/24 19:07 09/05/24 19:07 Temperature Pulse Rate 103 H 103 H 103 H Respiratory Rate 28 H 28 H 28 H Blood Pressure Pulse Oximetry Oxygen Delivery Fraction of Inspired Oxygen 09/05/24 20:00 09/05/24 20:00 09/05/24 20:00 Temperature Pulse Rate 108 H 108 H Respiratory Rate 28 H Blood Pressure Pulse Oximetry 96 Oxygen Delivery Mechanical Ventilation Fraction of Inspired Oxygen 50 50 09/05/24 20:00 09/05/24 20:00 09/05/24 20:00 Temperature 98.6 F Pulse Rate 108 H 108 H 108 H Respiratory Rate 28 H 28 H 28 H Blood Pressure 113/60 Pulse Oximetry 95 Oxygen Delivery Fraction of Inspired Oxygen 09/05/24 20:00 09/05/24 20:45 09/05/24 22:00 Temperature Pulse Rate 108 H 108 H 109 H Respiratory Rate 28 H 28 H Blood Pressure Pulse Oximetry 95 Oxygen Delivery Mechanical Ventilation Fraction of Inspired Oxygen 50 09/05/24 22:00 09/05/24 22:00 09/05/24 22:00 Temperature Pulse Rate 109 H 111 H 111 H Respiratory Rate 28 H 28 H Blood Pressure Pulse Oximetry Oxygen Delivery Fraction of Inspired Oxygen 09/05/24 22:00 09/05/24 22:00 09/05/24 23:00 Temperature 98.3 F Pulse Rate 109 H 110 H 121 H Respiratory Rate 28 H 28 H 28 H Blood Pressure 114/60 Pulse Oximetry 93 Oxygen Delivery Fraction of Inspired Oxygen 09/05/24 23:00 09/05/24 23:05 09/06/24 00:00 Temperature Pulse Rate 120 H 124 H 121 H Respiratory Rate 28 H 28 H Blood Pressure Pulse Oximetry 97 97 Oxygen Delivery Mechanical Ventilation Mechanical Ventilation Fraction of Inspired Oxygen 50 50 09/06/24 00:00 09/06/24 00:00 09/06/24 00:00 Temperature 98.4 F Pulse Rate 121 H 112 H Respiratory Rate 28 H Blood Pressure 112/60 Pulse Oximetry 97 Oxygen Delivery Fraction of Inspired Oxygen 50 09/06/24 00:00 09/06/24 00:00 09/06/24 01:19 Temperature Pulse Rate 112 H 112 H 112 H Respiratory Rate 28 H 28 H 28 H Blood Pressure Pulse Oximetry Oxygen Delivery Fraction of Inspired Oxygen 09/06/24 02:00 09/06/24 02:00 09/06/24 02:00 Temperature 98.3 F Pulse Rate 130 H 130 H 130 H Respiratory Rate 28 H 28 H Blood Pressure 130/67 Pulse Oximetry 96 Oxygen Delivery Fraction of Inspired Oxygen 09/06/24 02:00 09/06/24 02:00 09/06/24 02:08 Temperature Pulse Rate 130 H 130 H 134 H Respiratory Rate 28 H 28 H Blood Pressure Pulse Oximetry 96 Oxygen Delivery Mechanical Ventilation Fraction of Inspired Oxygen 50 09/06/24 03:59 09/06/24 03:59 09/06/24 04:00 Temperature Pulse Rate 102 H 128 H Respiratory Rate 28 H Blood Pressure Pulse Oximetry 97 Oxygen Delivery Mechanical Ventilation Fraction of Inspired Oxygen 50 50 09/06/24 04:00 09/06/24 04:00 09/06/24 04:00 Temperature Pulse Rate 128 H 127 H 127 H Respiratory Rate 28 H 28 H 28 H Blood Pressure Pulse Oximetry Oxygen Delivery Fraction of Inspired Oxygen 09/06/24 04:00 09/06/24 04:02 09/06/24 05:01 Temperature 98.7 F Pulse Rate 127 H 128 H 125 H Respiratory Rate 28 H 28 H 28 H Blood Pressure 110/58 L Pulse Oximetry 97 Oxygen Delivery Fraction of Inspired Oxygen 09/06/24 05:40 09/06/24 06:00 09/06/24 06:00 Temperature Pulse Rate 127 H 125 H 128 H Respiratory Rate 28 H 28 H Blood Pressure Pulse Oximetry 97 Oxygen Delivery Mechanical Ventilation Fraction of Inspired Oxygen 50 09/06/24 06:00 09/06/24 06:00 09/06/24 06:00 Temperature 98.4 F Pulse Rate 128 H 129 H 129 H Respiratory Rate 28 H 28 H Blood Pressure 123/75 Pulse Oximetry 96 Oxygen Delivery Fraction of Inspired Oxygen 09/06/24 06:00 09/06/24 07:40 09/06/24 08:00 Temperature Pulse Rate 129 H 120 H 123 H Respiratory Rate 28 H 28 H Blood Pressure Pulse Oximetry 96 Oxygen Delivery Mechanical Ventilation Fraction of Inspired Oxygen 45 09/06/24 08:00 09/06/24 08:00 09/06/24 08:00 Temperature Pulse Rate 123 H 123 H 118 H Respiratory Rate 28 H 28 H 28 H Blood Pressure Pulse Oximetry 98 Oxygen Delivery Mechanical Ventilation Fraction of Inspired Oxygen 50 09/06/24 08:00 09/06/24 08:00 09/06/24 08:00 Temperature 98.0 F Pulse Rate 121 H 121 H Respiratory Rate 28 H Blood Pressure 141/68 H Pulse Oximetry 98 Oxygen Delivery Fraction of Inspired Oxygen 50 09/06/24 08:39 09/06/24 09:00 09/06/24 09:05 Temperature Pulse Rate 120 H 115 H 116 H Respiratory Rate 28 H 28 H 28 H Blood Pressure Pulse Oximetry Oxygen Delivery Fraction of Inspired Oxygen 09/06/24 09:10 09/06/24 10:00 09/06/24 10:00 Temperature Pulse Rate 118 H 118 H 118 H Respiratory Rate 28 H 28 H 28 H Blood Pressure Pulse Oximetry Oxygen Delivery Fraction of Inspired Oxygen 09/06/24 10:00 09/06/24 10:00 09/06/24 10:05 Temperature Pulse Rate 121 H 122 H 118 H Respiratory Rate 28 H 28 H Blood Pressure 143/70 H Pulse Oximetry 98 Oxygen Delivery Fraction of Inspired Oxygen 09/06/24 10:15 09/06/24 10:15 09/06/24 10:33 Temperature Pulse Rate 121 H 121 H 119 H Respiratory Rate 28 H 28 H 28 H Blood Pressure Pulse Oximetry Oxygen Delivery Fraction of Inspired Oxygen 09/06/24 10:34 09/06/24 10:35 09/06/24 11:15 Temperature Pulse Rate 118 H 119 H 119 H Respiratory Rate 28 H 28 H Blood Pressure Pulse Oximetry 95 Oxygen Delivery Mechanical Ventilation Fraction of Inspired Oxygen 45 Intake/Output Intake/Output: Intake & Output 09/03/24 09/04/24 09/05/24 09/06/24 23:59 23:59 23:59 23:59 Intake Total 2114.5 2242.3 2564.0 750.6 Output Total 8919 700 3674 900 Balance 264.5 1342.3 1104.0 -149.4 Meds/Results Medications: Active Medications Generic Name Dose Route Start Last Admin Trade Name Freq PRN Reason Stop Dose Admin Acetaminophen 650 mg 08/29/24 18:17 Acetaminophen 325 Mg Tablet PO Q4H PRN Mild Pain (1-3) or Fever Acetaminophen 650 mg 08/30/24 00:43 08/30/24 06:56 Acetaminophen 650 Mg Suppository RECTAL 650 mg Q6H PRN Administration Mild Pain (1-3) or Fever Acyclovir 400 mg 08/30/24 14:00 09/06/24 06:46 Acyclovir 200 Mg Capsule FEED TUBE 09/09/24 06:01 400 mg Q8HR RHYS Administration Dextrose 12.5 gm 08/29/24 20:42 08/31/24 20:55 Dextrose 50% 25 Gm/50 Ml Syringe IV PUSH 12.5 gm PRN PRN Administration Hypoglycemia Protocol Enoxaparin Sodium 60 mg 09/03/24 11:35 09/05/24 21:45 Enoxaparin 60 Mg/0.6 Ml Syringe SUB-Q 60 mg Q12H RHYS Administration Glucagon 1 mg 08/29/24 20:42 Glucagon For Inj 1 Mg Vial IM PRN PRN Hypoglycemia Protocol Glucose 15 gm 08/29/24 20:42 Glucose Oral Gel 15 Gm Of Glucse In 37.5 Gm Tube PO PRN PRN Hypoglycemia Protocol Hydrocortisone Sodium Succinate 20 mg 09/03/24 09:00 09/06/24 08:42 Hydrocortisone Sodium Succinate 100 Mg/2 Ml Vial IV PUSH 20 mg QAM RHYS Administration Dextrose 1,000 mls @ 100 mls/hr 08/29/24 20:42 Dextrose 5% 1,000 Ml IVPB PRN PRN Hypoglycemia Protocol Fentanyl Citrate 2,500 mcg in 250 mls @ 17.5 mls/hr 08/30/24 10:20 09/06/24 10:35 Fentanyl 2,500 Mcg/Ns 250 Ml IV CONT 175 mcg/hr .[id number] RHYS 17.5 mls/hr Titration Protocol 175 MCG/HR Midazolam HCl 100 mg in 100 mls @ 9 mls/hr 08/30/24 10:20 09/06/24 10:34 Versed 100 Mg/Ns 100 Ml IV CONT 9 mg/hr .[id number] RHYS 9 mls/hr Titration Protocol 9 MG/HR Propofol 100 mls @ 0 mls/hr 08/31/24 08:30 09/06/24 10:33 Diprivan IV CONT 0 mcg/kg/min .Q0M RHYS 0 mls/hr Titration Protocol 0 MCG/KG/MIN Micafungin Sodium 100 mg/ 100 mls @ 100 mls/hr 09/04/24 10:20 09/06/24 08:42 Sodium Chloride IVPB 100 mls/hr DAILY RHYS Administration Levofloxacin/Dextrose 750 mg in 150 mls @ 100 mls/hr 09/05/24 09:00 09/05/24 10:08 Levaquin 750 Mg/D5w 150 Ml IVPB Infused Q48H RHYS Infusion Meropenem 1 gm in 100 mls @ 200 mls/hr 09/06/24 11:00 IVPB Q12HR RHYS Insulin Aspart 3 - 6 units 08/31/24 16:39 09/06/24 09:07 Insulin Aspart (*Bkc) 100 Units/Ml SUB-Q Not Given Q4HR RHYS Protocol Metoclopramide HCl 10 mg 09/01/24 08:00 09/06/24 06:46 Metoclopramide Hcl 10 Mg/10 Ml Soln Udc FEED TUBE 10 mg Q6HR RHYS Administration Multi-Ingred Cream/Lotion/Oil/Oint 1 applic 08/30/24 10:20 09/06/24 09:07 Mineral Oil/White Petrolatum Ointment EACH EYE 1 applic Q12HR RHYS Administration Pantoprazole Sodium 40 mg 08/30/24 10:40 09/06/24 08:42 Pantoprazole Sodium Iv 40 Mg Vial IV PUSH 40 mg Q12HR RHYS Administration Prednisolone Acetate 1 drop 08/30/24 21:00 09/06/24 09:07 Prednisolone Acetate 1% Ophth 5 Ml RIGHT EYE 1 drop Q12HR RHYS Administration Sodium Chloride 10 ml 08/30/24 12:17 Central Line Flush IV PUSH PRN PRN with TPN bag changes Sodium Chloride 20 ml 08/30/24 12:17 Central Line Flush IV PUSH PRN PRN after blood draws Sodium Chloride 10 ml 09/04/24 22:00 09/06/24 08:41 Central Line Flush IV PUSH 10 ml Q8HR RHYS Administration Sodium Chloride 20 ml 09/04/24 12:30 Central Line Flush IV PUSH PRN PRN after blood draws Radiology Results: ITS Impressions Head CT 08/29/24 21:55 Impression: No acute intracranial hemorrhage or suspicious mass effect. Chest/Abdomen/Pelvis CT 08/29/24 21:57 IMPRESSION: Dense bilateral multifocal infiltrates, predominantly perihilar, as detailed above. No additional source is detected for patient's profound sepsis. Abdomen X-Ray 08/30/24 11:02 IMPRESSION: Bilateral pneumonia. Differential include pulmonary edema. Venous Doppler Study 09/03/24 10:50 IMPRESSION: 1. Extensive deep and superficial venous thrombosis throughout the bilateral upper lungs as detailed above. Findings were discussed with Jacinto Victor, the nurse caring for the patient, at 10:59 AM. ADDENDUM: 09/03/24 1400 CORRECTION: There is a dictation error in the impression section. With the correction capitalized this should read- Extensive deep and superficial venous thrombosis throughout the bilateral upper LIMBS as detailed above. Chest X-Ray 09/06/24 05:36 Impression: Bibasilar airspace consolidation, right worse than left, with underlying chronic interstitial disease. Correlate for superimposed pulmonary edema or pneumonia. Support tubes, as above. Labs Labs: Laboratory Results - last 24 hr 08/30/24 08/31/24 09/05/24 16:16 08:30 11:13 WBC RBC Hgb Hct MCV MCH MCHC RDW Plt Count MPV Immature Gran % (Auto) Neut % (Auto) Lymph % (Auto) [place] % (Auto) Eos % (Auto) Baso % (Auto) Lymph # (Auto) [place] # (Auto) Eos # (Auto) Baso # (Auto) Abs Immat Gran (auto) Absolute Neuts (auto) Absolute Nucleated RBC Total Counted Neutrophils % (Manual) Band Neutrophils % Lymphocytes % (Manual) Monocytes % (Manual) Eosinophils % (Manual) Metamyelocytes % Myelocytes % Nucleated RBC % Abs Neuts (Manual) Abs Lymphs (Manual) Abs Monocytes (Manual) Absolute Eos (Manual) Atypical Lymphocytes Platelet Estimate Polychromasia Hypochromasia Anisocytosis Tear Drop Cells Stomatocytes Schistocytes Puncture Site ABG pH ABG pCO2 ABG pO2 ABG PO2/FiO2 Ratio ABG HCO3 ABG O2 Saturation ABG O2 Content ABG Base Excess A-a Gradient Oxyhemoglobin Carboxyhemoglobin Methemoglobin Reduced Hemoglobin Total Hemoglobin O2 Delivery Device O2 Liters/Min Minute Volume Vent Rate Vent Mode FiO2 Tidal Volume PEEP Peak Inspir Pressure Pressure Support Sodium Potassium Chloride Carbon Dioxide Anion Gap BUN Creatinine Estim Creat Clear Calc Estimated GFR Glucose POC Capillary Glucose 101 Calcium Phosphorus Magnesium Total Bilirubin AST ALT Alkaline Phosphatase Total Protein Albumin C. pneumoniae DNA (PCR) Not detected Chlamydia DNA Source Bal SARS-CoV-2 RNA (RT-PCR) Not detected 09/05/24 09/05/24 09/06/24 16:12 21:36 00:36 WBC RBC Hgb Hct MCV MCH MCHC RDW Plt Count MPV Immature Gran % (Auto) Neut % (Auto) Lymph % (Auto) [place] % (Auto) Eos % (Auto) Baso % (Auto) Lymph # (Auto) [place] # (Auto) Eos # (Auto) Baso # (Auto) Abs Immat Gran (auto) Absolute Neuts (auto) Absolute Nucleated RBC Total Counted Neutrophils % (Manual) Band Neutrophils % Lymphocytes % (Manual) Monocytes % (Manual) Eosinophils % (Manual) Metamyelocytes % Myelocytes % Nucleated RBC % Abs Neuts (Manual) Abs Lymphs (Manual) Abs Monocytes (Manual) Absolute Eos (Manual) Atypical Lymphocytes Platelet Estimate Polychromasia Hypochromasia Anisocytosis Tear Drop Cells Stomatocytes Schistocytes Puncture Site ABG pH ABG pCO2 ABG pO2 ABG PO2/FiO2 Ratio ABG HCO3 ABG O2 Saturation ABG O2 Content ABG Base Excess A-a Gradient Oxyhemoglobin Carboxyhemoglobin Methemoglobin Reduced Hemoglobin Total Hemoglobin O2 Delivery Device O2 Liters/Min Minute Volume Vent Rate Vent Mode FiO2 Tidal Volume PEEP Peak Inspir Pressure Pressure Support Sodium Potassium Chloride Carbon Dioxide Anion Gap BUN Creatinine Estim Creat Clear Calc Estimated GFR Glucose POC Capillary Glucose 107 H 100 121 H Calcium Phosphorus Magnesium Total Bilirubin AST ALT Alkaline Phosphatase Total Protein Albumin C. pneumoniae DNA (PCR) Chlamydia DNA Source SARS-CoV-2 RNA (RT-PCR) 09/06/24 09/06/24 09/06/24 04:28 06:07 08:46 WBC 51.2 H* RBC 2.69 L Hgb 8.1 L Hct 24.7 L MCV 91.8 MCH 30.1 MCHC 32.8 RDW 23.8 H Plt Count 384 H D MPV 12.2 H Immature Gran % (Auto) Not Reportable Neut % (Auto) Not Reportable Lymph % (Auto) Not Reportable [place] % (Auto) Not Reportable Eos % (Auto) Not Reportable Baso % (Auto) Not Reportable Lymph # (Auto) Not Reportable [place] # (Auto) Not Reportable Eos # (Auto) Not Reportable Baso # (Auto) Not Reportable Abs Immat Gran (auto) Not Reportable Absolute Neuts (auto) Not Reportable Absolute Nucleated RBC Not Reportable Total Counted 100 Neutrophils % (Manual) 33 L Band Neutrophils % 21 H Lymphocytes % (Manual) 30 Monocytes % (Manual) 8 Eosinophils % (Manual) 2 Metamyelocytes % 3 Myelocytes % 3 Nucleated RBC % Not Reportable Abs Neuts (Manual) 27.64 H Abs Lymphs (Manual) 15.36 H Abs Monocytes (Manual) 4.09 H Absolute Eos (Manual) 1.02 H Atypical Lymphocytes Present Platelet Estimate Adequate Polychromasia 1+ Hypochromasia 2+ Anisocytosis 2+ Tear Drop Cells 1+ Stomatocytes 1+ Schistocytes None seen Puncture Site Artline ABG pH 7.424 ABG pCO2 34.2 L ABG pO2 132.3 H ABG PO2/FiO2 Ratio 2.65 ABG HCO3 21.9 L ABG O2 Saturation 98.7 ABG O2 Content 12.4 L ABG Base Excess -2.1 A-a Gradient 185.7 Oxyhemoglobin 97.1 Carboxyhemoglobin 1.0 Methemoglobin 0.3 Reduced Hemoglobin 1.6 Total Hemoglobin 8.9 L O2 Delivery Device Ventilator O2 Liters/Min Not Reportable Minute Volume Not Reportable Vent Rate 28 Vent Mode Cmv FiO2 50 Tidal Volume 370 PEEP 12 Peak Inspir Pressure Not Reportable Pressure Support Not Reportable Sodium 144 Potassium 3.6 Chloride 116 H Carbon Dioxide 20 L Anion Gap 8 BUN 119 H* D Creatinine 1.01 H Estim Creat Clear Calc 37 Estimated GFR 55 L Glucose 110 POC Capillary Glucose 114 H Calcium 12.7 H* Phosphorus 2.9 Magnesium 2.1 Total Bilirubin 0.4 AST 64 H ALT 22 Alkaline Phosphatase 124 Total Protein 5.1 L Albumin 2.5 L C. pneumoniae DNA (PCR) Chlamydia DNA Source SARS-CoV-2 RNA (RT-PCR) Quality VTE Prophylaxis VTE prophylaxis: pharmacologic ordered
[2024-09-06] MEDS: ENOXAPARIN 60 MG/0.6 ML SYRINGE SUB-Q ×2 (11:29→23:25)
[2024-09-06] MEDS: MEROPENEM 1 GM/NS 100 ML 1 GM/100 ML BAG IVPB ×2 (11:29→21:00)
[2024-09-06] MEDS: FUROSEMIDE INJ 40 MG/4 ML VIAL IV PUSH (11:32)
--- NOTE | 2024-09-06 12:15 | P.PNNP_ITS ---
Progress Note: A&P Assessment and Plan (1) Azotemia: Code(s): R79.89 - Other specified abnormal findings of blood chemistry Status: Acute Assessment and Plan: * as note by labs on 09/05 * suspect multifactorial: * high catabolic state * steroid use * infection * critical illness * previous FRANK/ARF * no evidence of GI bleed * no other culprit medications * follow trend of repeat labs (2) Acute respiratory failure: Code(s): J96.00 - Acute respiratory failure, unspecified whether with hypoxia or hypercapnia Status: Acute Assessment and Plan: * secondary to bilateral Pseudomonas pneumonia in an immunocompromised patient who was on methotrexate and hydroxychloroquine. * ARDS physiology noted * bronchoscopy (08/31) which did not show any LR hemorrhage or tracheobronchitis * BAL culture is growing Pseudomonas which is pansensitive. Also Milagros glabrata * PCR for influenza RSV and COVID was negative * culture data negative to date * on stress dose steroids * prone positioning PRN (3) Pneumonia: Qualifiers: Laterality: bilateral Lung location: unspecified part of lung P neumonia type: due to unspecified organism Qualified Code(s): J18.9 - Pneumonia, unspecified organism Code(s): J18.9 - Pneumonia, unspecified organism Status: Acute Assessment and Plan: * as noted by recent imaging * see #2 (4) Rheumatoid arthritis: Code(s): M06.9 - Rheumatoid arthritis, unspecified Status: Acute Assessment and Plan: * holding methotrexate and hydroxychloroquine (5) Toxic metabolic encephalopathy: Code(s): G92.8 - Other toxic encephalopathy Status: Acute Assessment and Plan: * presented with altered mental status and confusion * Head CT was negative * TSH was normal * reassess when off ventilator (6) Peripheral ischemia: Code(s): I99.8 - Other disorder of circulatory system Status: Acute Assessment and Plan: * discoloration/gangrene of all 10 fingers. * likely systemic presentation suggest against vascular clot, septic emboli, pseudomonal infection * improving, also blistering noted on some of the fingers, continue to monitor (7) Swelling of both upper extremities: Code(s): M79.89 - Other specified soft tissue disorders Status: Acute Assessment and Plan: * secondary to edema as it is bilateral * however, ultrasound of UEs showed extensive deep and superficial venous thrombosis throughout the bilateral upper extremities * on Lovenox (8) Hypoglycemia: Code(s): E16.2 - Hypoglycemia, unspecified Status: Acute Assessment and Plan: * noted earlier * blood sugars are stable now Will continue to follow. L Subjective Date/time seen: 09/06/24 12:14 Interval history: Follow-up for elevated blood urea nitrogen/azotemia. Remains intubated/sedated and on mechanical ventilation; off paralytics and in supine position; creatinine remains relatively stable but BUN up a bit in comparison to yesterday; reasonable urine output; hemodynamically stable. Exam 2 Narrative: General: elderly but WD/WN female intubated/sedated and on mechanical ventilation Heart: tachycardic, normal S1 and S2 Lungs: coarse breath sounds; decreased at bases Abdomen: soft, nontender, nondistended, decreased bowel sounds Extremities: no cyanosis or clubbing; + edema in UEs Skin: scattered healing wounds over LEs; bilateral finger discoloration noted Objective Data Vital Signs Vital Signs: Vital Signs Temp Pulse Resp BP Pulse Ox O2 Del Method FiO2 09/06/24 12:00 133 H 28 H 95 Mechanical Ventilation 40 09/06/24 12:00 128 H 28 H 09/06/24 11:28 125 H 28 H 09/06/24 11:15 119 H 95 Mechanical Ventilation 45 09/06/24 10:35 119 H 28 H 09/06/24 10:34 118 H 28 H 09/06/24 10:33 119 H 28 H 09/06/24 10:15 121 H 28 H 09/06/24 10:15 121 H 28 H 09/06/24 10:05 118 H 28 H 09/06/24 10:00 122 H 28 H 143/70 H 98 09/06/24 10:00 121 H 09/06/24 10:00 118 H 28 H 09/06/24 10:00 118 H 28 H 09/06/24 09:10 118 H 28 H 09/06/24 09:05 116 H 28 H 09/06/24 09:00 115 H 28 H 09/06/24 08:39 120 H 28 H 09/06/24 08:00 121 H 09/06/24 08:00 98.0 F 121 H 28 H 141/68 H 98 09/06/24 08:00 50 09/06/24 08:00 118 H 28 H 98 Mechanical Ventilation 50 09/06/24 08:00 123 H 28 H 09/06/24 08:00 123 H 28 H 09/06/24 08:00 123 H 28 H 09/06/24 07:40 120 H 96 Mechanical Ventilation 45 09/06/24 06:00 129 H 28 H 09/06/24 06:00 98.4 F 129 H 28 H 123/75 96 09/06/24 06:00 129 H 09/06/24 06:00 128 H 28 H 09/06/24 06:00 128 H 28 H 09/06/24 06:00 125 H 28 H 09/06/24 05:40 127 H 97 Mechanical Ventilation 50 09/06/24 05:01 125 H 28 H 09/06/24 04:02 128 H 28 H 09/06/24 04:00 98.7 F 127 H 28 H 110/58 L 97 09/06/24 04:00 127 H 28 H 09/06/24 04:00 127 H 28 H 09/06/24 04:00 128 H 28 H 09/06/24 04:00 50 09/06/24 03:59 128 H 09/06/24 03:59 102 H 28 H 97 Mechanical Ventilation 50 09/06/24 02:08 134 H 96 Mechanical Ventilation 50 09/06/24 02:00 130 H 28 H 09/06/24 02:00 130 H 28 H 09/06/24 02:00 130 H 28 H 09/06/24 02:00 98.3 F 130 H 28 H 130/67 96 09/06/24 02:00 130 H 09/06/24 01:19 112 H 28 H 09/06/24 00:00 112 H 28 H 09/06/24 00:00 112 H 28 H 09/06/24 00:00 98.4 F 112 H 28 H 112/60 97 09/06/24 00:00 50 09/06/24 00:00 121 H 09/06/24 00:00 121 H 28 H 97 Mechanical Ventilation 50 09/05/24 23:05 124 H 97 Mechanical Ventilation 50 09/05/24 23:00 120 H 28 H 09/05/24 23:00 121 H 28 H 09/05/24 22:00 98.3 F 110 H 28 H 114/60 93 09/05/24 22:00 109 H 28 H 09/05/24 22:00 111 H 09/05/24 22:00 111 H 28 H 09/05/24 22:00 109 H 28 H 09/05/24 22:00 109 H 28 H 09/05/24 20:45 108 H 95 Mechanical Ventilation 50 09/05/24 20:00 108 H 28 H 09/05/24 20:00 108 H 28 H 09/05/24 20:00 108 H 28 H 09/05/24 20:00 98.6 F 108 H 28 H 113/60 95 09/05/24 20:00 50 09/05/24 20:00 108 H 09/05/24 20:00 108 H 28 H 96 Mechanical Ventilation 50 09/05/24 19:07 103 H 28 H 09/05/24 19:07 103 H 28 H 09/05/24 19:06 103 H 28 H 09/05/24 19:06 103 H 28 H 09/05/24 19:06 103 H 28 H 09/05/24 19:06 103 H 28 H 09/05/24 18:00 101 H 28 H 09/05/24 18:00 101 H 28 H 09/05/24 18:00 101 H 28 H 09/05/24 18:00 97.5 F L 101 H 114/61 96 09/05/24 17:51 101 H 97 Mechanical Ventilation 50 09/05/24 17:00 50 Intake/Output Intake/Output: Intake & Output 09/03/24 09/04/24 09/05/24 09/06/24 23:59 23:59 23:59 23:59 Intake Total 2114.5 2242.3 2564.0 1095.4 Output Total 3870 924 2078 2200 Balance 264.5 1342.3 1104.0 -1104.6 Meds/Results Medications: Active Medications Generic Name Dose Route Start Last Admin Trade Name Freq PRN Reason Stop Dose Admin Acetaminophen 650 mg 08/29/24 18:17 Acetaminophen 325 Mg Tablet PO Q4H PRN Mild Pain (1-3) or Fever Acetaminophen 650 mg 08/30/24 00:43 08/30/24 06:56 Acetaminophen 650 Mg Suppository RECTAL 650 mg Q6H PRN Administration Mild Pain (1-3) or Fever Acyclovir 400 mg 08/30/24 14:00 09/06/24 15:03 Acyclovir 200 Mg Capsule FEED TUBE 09/09/24 06:01 400 mg Q8HR RHYS Administration Dextrose 12.5 gm 08/29/24 20:42 08/31/24 20:55 Dextrose 50% 25 Gm/50 Ml Syringe IV PUSH 12.5 gm PRN PRN Administration Hypoglycemia Protocol Enoxaparin Sodium 60 mg 09/03/24 11:35 09/06/24 11:29 Enoxaparin 60 Mg/0.6 Ml Syringe SUB-Q 60 mg Q12H RHYS Administration Glucagon 1 mg 08/29/24 20:42 Glucagon For Inj 1 Mg Vial IM PRN PRN Hypoglycemia Protocol Glucose 15 gm 08/29/24 20:42 Glucose Oral Gel 15 Gm Of Glucse In 37.5 Gm Tube PO PRN PRN Hypoglycemia Protocol Hydrocortisone Sodium Succinate 20 mg 09/03/24 09:00 09/06/24 08:42 Hydrocortisone Sodium Succinate 100 Mg/2 Ml Vial IV PUSH 20 mg QAM RHYS Administration Dextrose 1,000 mls @ 100 mls/hr 08/29/24 20:42 Dextrose 5% 1,000 Ml IVPB PRN PRN Hypoglycemia Protocol Fentanyl Citrate 2,500 mcg in 250 mls @ 15 mls/hr 08/30/24 10:20 09/06/24 14:00 Fentanyl 2,500 Mcg/Ns 250 Ml IV CONT 150 mcg/hr .[id number] RHYS 15 mls/hr Titration Protocol 150 MCG/HR Midazolam HCl 100 mg in 100 mls @ 9 mls/hr 08/30/24 10:20 09/06/24 15:09 Versed 100 Mg/Ns 100 Ml IV CONT 9 mg/hr .[id number] RHYS 9 mls/hr Administration Protocol 9 MG/HR Micafungin Sodium 100 mg/ 100 mls @ 100 mls/hr 09/04/24 10:20 09/06/24 12:08 Sodium Chloride IVPB Infused DAILY RHYS Infusion Levofloxacin/Dextrose 750 mg in 150 mls @ 100 mls/hr 09/05/24 09:00 09/05/24 10:08 Levaquin 750 Mg/D5w 150 Ml IVPB Infused Q48H RHYS Infusion Meropenem 1 gm in 100 mls @ 200 mls/hr 09/06/24 11:00 09/06/24 11:59 IVPB Infused Q12HR RHYS Infusion Dexmedetomidine HCl 400 mcg in 100 mls @ 2.98 mls/hr 09/06/24 14:00 09/06/24 15:00 Precedex 400 Mcg/100 Ml IV CONT 0.2 mcg/kg/hr .[id number] RHYS 2.98 mls/hr Administration Protocol 0.2 MCG/KG/HR Insulin Aspart 3 - 6 units 08/31/24 16:39 09/06/24 15:19 Insulin Aspart (*Bkc) 100 Units/Ml SUB-Q Not Given Q4HR [facility] Protocol Metoclopramide HCl 10 mg 09/01/24 08:00 09/06/24 11:29 Metoclopramide Hcl 10 Mg/10 Ml Soln Udc FEED TUBE 10 mg Q6HR RHYS Administration Metoprolol Tartrate 25 mg 09/06/24 13:55 09/06/24 15:03 Metoprolol Tartrate 25 Mg Tablet PO 25 mg Q12HR RHYS Administration Multi-Ingred Cream/Lotion/Oil/Oint 1 applic 08/30/24 10:20 09/06/24 09:07 Mineral Oil/White Petrolatum Ointment EACH EYE 1 applic Q12HR RHYS Administration Pantoprazole Sodium 40 mg 08/30/24 10:40 09/06/24 08:42 Pantoprazole Sodium Iv 40 Mg Vial IV PUSH 40 mg Q12HR RHYS Administration Prednisolone Acetate 1 drop 08/30/24 21:00 09/06/24 09:07 Prednisolone Acetate 1% Ophth 5 Ml RIGHT EYE 1 drop Q12HR RHYS Administration Sodium Chloride 10 ml 08/30/24 12:17 Central Line Flush IV PUSH PRN PRN with TPN bag changes Sodium Chloride 20 ml 08/30/24 12:17 Central Line Flush IV PUSH PRN PRN after blood draws Sodium Chloride 10 ml 09/04/24 22:00 09/06/24 15:17 Central Line Flush IV PUSH 10 ml Q8HR RHYS Administration Sodium Chloride 20 ml 09/04/24 12:30 Central Line Flush IV PUSH PRN PRN after blood draws Radiology Results: ITS Impressions Head CT 08/29/24 21:55 Impression: No acute intracranial hemorrhage or suspicious mass effect. Chest/Abdomen/Pelvis CT 08/29/24 21:57 IMPRESSION: Dense bilateral multifocal infiltrates, predominantly perihilar, as detailed above. No additional source is detected for patient's profound sepsis. Abdomen X-Ray 08/30/24 11:02 IMPRESSION: Bilateral pneumonia. Differential include pulmonary edema. Venous Doppler Study 09/03/24 10:50 IMPRESSION: 1. Extensive deep and superficial venous thrombosis throughout the bilateral upper lungs as detailed above. Findings were discussed with Jacinto Victor, the nurse caring for the patient, at 10:59 AM. ADDENDUM: 09/03/24 1400 CORRECTION: There is a dictation error in the impression section. With the correction capitalized this should read- Extensive deep and superficial venous thrombosis throughout the bilateral upper LIMBS as detailed above. Chest X-Ray 09/06/24 05:36 Impression: Bibasilar airspace consolidation, right worse than left, with underlying chronic interstitial disease. Correlate for superimposed pulmonary edema or pneumonia. Support tubes, as above. Labs Labs: Laboratory Tests 09/06/24 06:07 09/06/24 06:07 Calcium 12.7 H* Phosphorus 2.9 Magnesium 2.1 Total Bilirubin 0.4 AST 64 H ALT 22 Alkaline Phosphatase 124 Total Protein 5.1 L Albumin 2.5 L
[2024-09-06] MEDS: dexmedeTOMIDine 400 MCG/100 ML 400 MCG/100 ML BAG IV CONT (15:00)
[2024-09-06] MEDS: METOPROLOL TARTRATE 25 MG TABLET PO ×2 (15:03→20:59)
[2024-09-06] MEDS: MIDAZOLAM 100MG/NS 100ML(*CRX) 100 MG/100 ML BAG 9 MG IV CONT (15:09)
[2024-09-06 18:19] LABS: Alveolar/Arterial O2 Gradient 212.8 mmHg; Fractional Inspired Oxygen 100 %; HCO3 ABG 21.3 mEq/l (22.0-26.0); Oxygen Content ABG 13.0 %vol (16.0-22.0); Oxygen Saturation ABG 99.9 % (95.0-100.0); PCO2 ABG 27.0 mmHg (35.0-45.0); PO2 ABG 473.2 mmHg (80.0-100.0); PO2 FiO2 Ratio Arterial Blood 4.73 %
[2024-09-06 18:24] LABS: Arterial Blood Gas Ventilator rate 28 /MIN; Site Drawn ARTLINE
[2024-09-06 18:25] LABS: Arterial Blood Gas Tidal Volume 370 ml
[2024-09-06] MEDS: FENTANYL 2,500MCG/NS250ML(*CRX 2,500 MCG/250 ML BAG 20 MCG IV CONT (20:02)
[2024-09-07] VITALS (48 sets, daily range): BP systolic 103–145; BP diastolic 57–83; PULSE 86–114; RESP 16–35; TEMP 36.4–37.4; O2SAT 95–100
[2024-09-07] MEDS: dexmedeTOMIDine 400 MCG/100 ML 400 MCG/100 ML BAG 8.94 MCG IV CONT (02:23)
[2024-09-07] MEDS: MIDAZOLAM 100MG/NS 100ML(*CRX) 100 MG/100 ML BAG 6 MG IV CONT (02:39)
[2024-09-07] MEDS: METOCLOPRAMIDE HCL 10 MG/10 ML SOLN UDC FEED TUBE ×3 (05:06→17:19)
[2024-09-07] MEDS: CENTRAL LINE FLUSH 10 ML IV PUSH ×2 (05:06→20:38)
[2024-09-07] MEDS: ACYCLOVIR 200 MG CAPSULE 400 MG FEED TUBE ×3 (05:06→20:40)
[2024-09-07 05:07] LABS: Hematocrit 21.9 % (37.0-47.0); Hemoglobin 7.1 g/dL (12.0-15.0); Mean Corpuscular HGB Conc 32.4 g/dl (32-36); Mean Corpuscular Hemoglobin 29.6 pg (26-34); Mean Corpuscular Volume 91.3 fl (80-100); Platelet Count Result 423 k/mm3 (150-375); Red Blood Count 2.40 M/mm3 (4.2-5.4); White Blood Count 45.9 K/mm3 (4.5-10.0)
[2024-09-07 05:23] LABS: Alveolar/Arterial O2 Gradient 171.6 mmHg; Carboxyhemoglobin 1.3 % THb (0-2.0); Fractional Inspired Oxygen 40 %; HCO3 ABG 20.0 mEq/l (22.0-26.0); Methemoglobin ABG 0.3 %THb (0-1.5); Oxygen Content ABG 10.3 %vol (16.0-22.0); Oxygen Saturation ABG 97.5 % (95.0-100.0); PCO2 ABG 24.5 mmHg (35.0-45.0); PO2 ABG 85.4 mmHg (80.0-100.0); PO2 FiO2 Ratio Arterial Blood 2.13 %; Reduced Hemoglobin 3.1 %THb (0-5.0)
[2024-09-07 05:23] LABS: Alanine Aminotransferase 20 U/L (6-35); Albumin Level 2.3 g/dL (3.5-5.1); Alkaline Phosphatase 115 U/L (38-126); Anion Gap 4 mmol/L (4-12); Aspartate Amino Transferase 66 U/L (14-36); Bilirubin,Total 0.4 mg/dL (0.2-1.3); Calcium 12.3 mg/dL (8.4-10.2); Carbon Dioxide 25 mmol/L (22-30); Chloride 119 mmol/L (98-107); Estimated CRCL calculation 35 ml/min; Estimated Glomerular Filt Rate 52; Glucose 128 mg/dL (65-110); Magnesium 2.1 mg/dL (1.6-2.3); Potassium 3.2 mmol/L (3.4-5.0); Sodium 148 mmol/L (137-145); Total Protein 5.0 g/dL (6.3-8.2)
[2024-09-07 05:24] LABS: Blood Urea Nitrogen 116 mg/dL (7-17)
[2024-09-07 05:31] LABS: Band Neutrophils Percent 5 % (0-6); Basophils Absolute Manual 0.91 K/mm3 (0.0-0.1); Basophils Percent Manual 2 % (0-1); Lymphocytes Absolute Manual 9.63 K/mm3 (1.1-4.5); Lymphocytes Percent Manual 21.0 % (18-44); Monocytes Absolute Manual 2.29 K/mm3 (0.1-0.90); Monocytes Percent Manual 5 % (3-9); Myelocytes Percent 3 %; Neutrophils Absolute Manual 30.75 K/mm3 (1.3-6.7); Neutrophils Percent Manual 62 % (46-73); Promyelocytes Percent 2 %; Total Cells Counted 100
[2024-09-07 05:32] LABS: Anisocytosis 1+; Macrocytosis 1+ (NORMAL)
[2024-09-07 05:33] LABS: Hypochromasia 1+; Ovalocytes 1+; Schistocytes Rare; Stomatocytes 1+
[2024-09-07 07:52] LABS: Pneumocystis Carinii Smear NOT DETECTED
[2024-09-07 08:00] LABS: Legionella pneumophila DFA. NOT DETECTED
[2024-09-07] MEDS: CHLOROTHIAZIDE 500 MG VIAL IV PUSH (08:23)
[2024-09-07] MEDS: POTASSIUM CHLORIDE 20 MEQ PACKET (FOR LIQUID) 40 MEQ FEED TUBE (08:24)
[2024-09-07] MEDS: HYDROCORTISONE SODIUM SUCCINATE 100 MG/2 ML VIAL 20 MG IV PUSH (08:24)
[2024-09-07] MEDS: levoFLOXacin 750 MG/D5W 150 ML 750 MG/150 ML BAG IVPB (08:26)
[2024-09-07] MEDS: PANTOPRAZOLE SODIUM IV 40 MG VIAL IV PUSH ×2 (08:27→20:49)
[2024-09-07] MEDS: MEROPENEM 1 GM/NS 100 ML 1 GM/100 ML BAG IVPB ×2 (08:30→20:50)
[2024-09-07] MEDS: FENTANYL 2,500MCG/NS250ML(*CRX 2,500 MCG/250 ML BAG 20 MCG IV CONT (08:33)
[2024-09-07] MEDS: KCL 40 MEQ/WATER 100 ML 100 ML 25 ML IVPB (08:48)
[2024-09-07] MEDS: MINERAL OIL/WHITE PETROLATUM OINTMENT 1 APPLIC EACH EYE ×2 (09:22→20:44)
[2024-09-07] MEDS: prednisoLONE ACETATE 1% OPHTH 5 ML 1 DROP RIGHT EYE ×2 (09:22→20:38)
[2024-09-07] MEDS: MICAFUNGIN SODIUM 100 MG in SODIUM CHLORIDE 0.9% IV 100 ML IVPB (09:22)
[2024-09-07 10:08] LABS: Arterial Blood Gas Tidal Volume 370 ml; Arterial Blood Gas Ventilator rate 26 /MIN
[2024-09-07 10:10] LABS: Site Drawn ARTLINE
[2024-09-07] MEDS: METOPROLOL TARTRATE 25 MG TABLET PO ×2 (10:24→20:49)
--- NOTE | 2024-09-07 10:35 | P.PNNP_ITS ---
Progress Note: A&P Assessment and Plan (1) Azotemia: Code(s): R79.89 - Other specified abnormal findings of blood chemistry Status: Acute Assessment and Plan: * as note by labs on 09/05 * Very high BUN to creatinine ratio. * Her baseline creatinine is only 0.5-0.6. She does not eat very much according to her daughter. Muscle mass is probably low. So her GFR is probably overestimated by her serum chemistries. However BUN to creatinine ratio is still substantially high. I think most of this is due to steroids and high catabolic rate as noted below. * suspect multifactorial: * high catabolic state * steroid use * infection * critical illness * previous FRANK/ARF * no evidence of GI bleed * no other culprit medications * follow trend of repeat labs (2) Acute respiratory failure: Code(s): J96.00 - Acute respiratory failure, unspecified whether with hypoxia or hypercapnia Status: Acute Assessment and Plan: * secondary to bilateral Pseudomonas pneumonia in an immunocompromised patient who was on methotrexate and hydroxychloroquine. * ARDS physiology noted * bronchoscopy (08/31) which did not show any LR hemorrhage or tracheobronchitis * BAL culture is growing Pseudomonas which is pansensitive. Also Milagros glabrata * PCR for influenza RSV and COVID was negative * culture data negative to date * on stress dose steroids (3) Pneumonia: Qualifiers: Laterality: bilateral Lung location: unspecified part of lung Pneumonia type: due to unspecified organism Qualified Code(s): J18.9 - Pneumonia, unspecified organism Code(s): J18.9 - Pneumonia, unspecified organism Status: Acute Assessment and Plan: * as noted by recent imaging * see #2 (4) Rheumatoid arthritis: Code(s): M06.9 - Rheumatoid arthritis, unspecified Status: Acute Assessment and Plan: * holding methotrexate and hydroxychloroquine (5) Toxic metabolic encephalopathy: Code(s): G92.8 - Other toxic encephalopathy Status: Acute Assessment and Plan: * presented with altered mental status and confusion * Head CT was negative * TSH was normal * Calcium level is a bit high. Just in case this is contributing will give calcitonin and pamidronate. * reassess when off ventilator (6) Peripheral ischemia: Code(s): I99.8 - Other disorder of circulatory system Status: Acute Assessment and Plan: * discoloration/gangrene of all 10 fingers. * likely systemic presentation suggest against vascular clot, septic emboli, pseudomonal infection * improving, also blistering noted on some of the fingers, continue to monitor (7) Swelling of both upper extremities: Code(s): M79.89 - Other specified soft tissue disorders Status: Acute Assessment and Plan: * secondary to edema as it is bilateral * however, ultrasound of UEs showed extensive deep and superficial venous thrombosis throughout the bilateral upper extremities * on Lovenox (8) Hypoglycemia: Code(s): E16.2 - Hypoglycemia, unspecified Status: Acute Assessment and Plan: * noted earlier * blood sugars are stable now (9) Hypercalcemia: Code(s): E83.52 - Hypercalcemia Status: Acute Assessment and Plan: Calcium levels very high. This could be due to immobilization leading to release of calcium from the bones. There are many other causes. She does not seem to be on any medications that would make this worse Will check labs to that effect. Because this may be symptomatic will add calcitonin plus pamidronate. long discussion with Dr Bolton Subjective Date/time seen: 09/07/24 10:35 Interval history: Patient is on the ventilator. and daughter are in the room. The patient can not give a history. She looks comfortable on the ventilator. Exam Narrative: General: elderly but WD/WN female intubated/sedated and on mechanical ventilation Heart: tachycardic, normal S1 and S2 Lungs: Coarse upper airway noise bilaterally Abdomen: soft, nontender, nondistended, decreased bowel sounds Extremities: + edema in UEs Skin: scattered healing wounds over LEs; bilateral finger discoloration noted Objective Data Vital Signs Vital Signs: Vital Signs - 24 hr 09/06/24 11:15 09/06/24 11:28 09/06/24 12:00 Temperature Pulse Rate 119 H 125 H 128 H Respiratory Rate 28 H 28 H Blood Pressure Pulse Oximetry 95 Oxygen Delivery Mechanical Ventilation Fraction of Inspired Oxygen 45 09/06/24 12:00 09/06/24 12:00 09/06/24 12:00 Temperature Pulse Rate 128 H 129 H 133 H Respiratory Rate 28 H 28 H 28 H Blood Pressure Pulse Oximetry 95 Oxygen Delivery Mechanical Ventilation Fraction of Inspired Oxygen 40 09/06/24 12:00 09/06/24 12:00 09/06/24 12:00 Temperature Pulse Rate 129 H 134 H Respiratory Rate 28 H Blood Pressure 179/91 H Pulse Oximetry 95 Oxygen Delivery Fraction of Inspired Oxygen 40 09/06/24 14:00 09/06/24 14:00 09/06/24 14:00 Temperature Pulse Rate 132 H 132 H 132 H Respiratory Rate 28 H 28 H 28 H Blood Pressure 162/82 H Pulse Oximetry 95 Oxygen Delivery Fraction of Inspired Oxygen 09/06/24 14:00 09/06/24 14:33 09/06/24 15:00 Temperature Pulse Rate 129 H 135 H 133 H Respiratory Rate 28 H Blood Pressure Pulse Oximetry 95 Oxygen Delivery Mechanical Ventilation Fraction of Inspired Oxygen 40 09/06/24 15:03 09/06/24 15:09 09/06/24 15:09 Temperature Pulse Rate 133 H 132 H 132 H Respiratory Rate 28 H 28 H Blood Pressure Pulse Oximetry Oxygen Delivery Fraction of Inspired Oxygen 09/06/24 16:00 09/06/24 16:00 09/06/24 16:00 Temperature Pulse Rate 119 H 118 H Respiratory Rate 28 H Blood Pressure Pulse Oximetry 97 Oxygen Delivery Mechanical Ventilation Fraction of Inspired Oxygen 40 40 09/06/24 16:00 09/06/24 16:00 09/06/24 16:00 Temperature 98.2 F Pulse Rate 117 H 121 H 131 H Respiratory Rate 28 H 28 H 28 H Blood Pressure 140/80 Pulse Oximetry 94 Oxygen Delivery Fraction of Inspired Oxygen 09/06/24 16:00 09/06/24 17:15 09/06/24 17:19 Temperature Pulse Rate 128 H 125 H 119 H Respiratory Rate 28 H 28 H Blood Pressure Pulse Oximetry 95 Oxygen Delivery Mechanical Ventilation Fraction of Inspired Oxygen 40 09/06/24 17:20 09/06/24 17:21 09/06/24 18:00 Temperature Pulse Rate 122 H 120 H 112 H Respiratory Rate 28 H 28 H 28 H Blood Pressure 140/81 Pulse Oximetry 100 Oxygen Delivery Fraction of Inspired Oxygen 09/06/24 18:00 09/06/24 18:00 09/06/24 18:00 Temperature Pulse Rate 140 H 140 H 140 H Respiratory Rate 38 H 32 H Blood Pressure 190/100 H Pulse Oximetry 74 L Oxygen Delivery Fraction of Inspired Oxygen 09/06/24 18:07 09/06/24 18:08 09/06/24 18:10 Temperature Pulse Rate 126 H 125 H 123 H Respiratory Rate 25 H 25 H 40 H Blood Pressure Pulse Oximetry Oxygen Delivery Fraction of Inspired Oxygen 09/06/24 18:11 09/06/24 18:30 09/06/24 18:31 Temperature Pulse Rate 123 H 123 H 123 H Respiratory Rate 40 H 32 H 34 H Blood Pressure Pulse Oximetry Oxygen Delivery Fraction of Inspired Oxygen 09/06/24 20:00 09/06/24 20:00 09/06/24 20:00 Temperature Pulse Rate 102 H 102 H 102 H Respiratory Rate 28 H 28 H 28 H Blood Pressure Pulse Oximetry Oxygen Delivery Fraction of Inspired Oxygen 09/06/24 20:00 09/06/24 20:00 09/06/24 20:00 Temperature Pulse Rate 101 H 101 H Respiratory Rate 28 H Blood Pressure Pulse Oximetry 98 Oxygen Delivery Mechanical Ventilation Fraction of Inspired Oxygen 40 40 09/06/24 20:00 09/06/24 20:02 09/06/24 20:25 Temperature 97.4 F L Pulse Rate 101 H 102 H 99 Respiratory Rate 28 H 28 H Blood Pressure 117/70 Pulse Oximetry 98 99 Oxygen Delivery Mechanical Ventilation Fraction of Inspired Oxygen 40 09/06/24 20:59 09/06/24 22:00 09/06/24 22:00 Temperature Pulse Rate 99 104 H 104 H Respiratory Rate 26 H Blood Pressure 132/70 Pulse Oximetry 100 Oxygen Delivery Fraction of Inspired Oxygen 09/06/24 22:00 09/06/24 22:00 09/06/24 22:00 Temperature Pulse Rate 104 H 104 H 104 H Respiratory Rate 26 H 26 H 26 H Blood Pressure Pulse Oximetry Oxygen Delivery Fraction of Inspired Oxygen 09/06/24 23:40 09/07/24 00:00 09/07/24 00:00 Temperature Pulse Rate 100 99 99 Respiratory Rate 26 H Blood Pressure Pulse Oximetry 100 100 Oxygen Delivery Mechanical Ventilation Mechanical Ventilation Fraction of Inspired Oxygen 40 40 09/07/24 00:00 09/07/24 00:00 09/07/24 00:00 Temperature 98.1 F Pulse Rate 99 99 Respiratory Rate 26 H 26 H Blood Pressure 114/62 Pulse Oximetry 100 Oxygen Delivery Fraction of Inspired Oxygen 40 09/07/24 00:00 09/07/24 00:00 09/07/24 01:21 Temperature Pulse Rate 99 99 101 H Respiratory Rate 26 H 26 H 26 H Blood Pressure Pulse Oximetry Oxygen Delivery Fraction of Inspired Oxygen 09/07/24 02:00 09/07/24 02:00 09/07/24 02:00 Temperature Pulse Rate 99 99 99 Respiratory Rate 26 H 26 H 26 H Blood Pressure Pulse Oximetry Oxygen Delivery Fraction of Inspired Oxygen 09/07/24 02:00 09/07/24 02:00 09/07/24 02:10 Temperature Pulse Rate 99 99 99 Respiratory Rate 26 H Blood Pressure 103/58 L Pulse Oximetry 99 99 Oxygen Delivery Mechanical Ventilation Fraction of Inspired Oxygen 40 09/07/24 02:23 09/07/24 02:23 09/07/24 02:27 Temperature Pulse Rate 98 98 97 Respiratory Rate 26 H 26 H 26 H Blood Pressure Pulse Oximetry Oxygen Delivery Fraction of Inspired Oxygen 09/07/24 02:39 09/07/24 02:39 09/07/24 04:00 Temperature Pulse Rate 97 97 114 H Respiratory Rate 26 H 26 H 31 H Blood Pressure Pulse Oximetry 100 Oxygen Delivery Mechanical Ventilation Fraction of Inspired Oxygen 40 09/07/24 04:00 09/07/24 04:00 09/07/24 04:00 Temperature 98.5 F Pulse Rate 114 H 114 H Respiratory Rate 31 H 31 H Blood Pressure 145/75 H Pulse Oximetry 100 Oxygen Delivery Fraction of Inspired Oxygen 40 09/07/24 04:00 09/07/24 04:00 09/07/24 04:00 Temperature Pulse Rate 114 H 114 H 113 H Respiratory Rate 31 H 31 H Blood Pressure Pulse Oximetry Oxygen Delivery Fraction of Inspired Oxygen 09/07/24 05:40 09/07/24 06:00 09/07/24 06:00 Temperature Pulse Rate 104 H 95 95 Respiratory Rate 26 H Blood Pressure 114/83 Pulse Oximetry 99 99 Oxygen Delivery Mechanical Ventilation Fraction of Inspired Oxygen 40 09/07/24 06:00 09/07/24 06:00 09/07/24 06:00 Temperature Pulse Rate 95 95 95 Respiratory Rate 26 H 26 H 26 H Blood Pressure Pulse Oximetry Oxygen Delivery Fraction of Inspired Oxygen 09/07/24 08:00 09/07/24 08:00 09/07/24 08:00 Temperature 99.3 F Pulse Rate 104 H 104 H 104 H Respiratory Rate 26 H 16 26 H Blood Pressure 130/69 Pulse Oximetry 100 Oxygen Delivery Fraction of Inspired Oxygen 09/07/24 08:00 09/07/24 08:00 09/07/24 08:33 Temperature Pulse Rate 104 H 104 H 92 Respiratory Rate 26 H 20 Blood Pressure Pulse Oximetry Oxygen Delivery Fraction of Inspired Oxygen 09/07/24 08:33 09/07/24 08:38 09/07/24 08:38 Temperature Pulse Rate 92 93 93 Respiratory Rate 20 22 H 22 H Blood Pressure Pulse Oximetry Oxygen Delivery Fraction of Inspired Oxygen 09/07/24 09:42 09/07/24 10:00 09/07/24 10:00 Temperature 99.2 F Pulse Rate 109 H 112 H 114 H Respiratory Rate 23 H 26 H Blood Pressure 127/67 Pulse Oximetry 99 99 Oxygen Delivery Mechanical Ventilation Fraction of Inspired Oxygen 40 09/07/24 10:00 09/07/24 10:00 09/07/24 10:24 Temperature Pulse Rate 114 H 114 H 109 H Respiratory Rate 26 H 26 H Blood Pressure Pulse Oximetry Oxygen Delivery Fraction of Inspired Oxygen 09/07/24 10:24 09/07/24 10:24 Temperature Pulse Rate 109 H 109 H Respiratory Rate 26 H 22 H Blood Pressure Pulse Oximetry Oxygen Delivery Fraction of Inspired Oxygen Intake/Output Intake/Output: Intake & Output 09/04/24 09/05/24 09/06/24 09/07/24 23:59 23:59 23:59 23:59 Intake Total 2242.3 2564.0 2195.6 768.2 Output Total 900 1460 3200 750 Balance 1342.3 1104.0 -1004.4 18.2 Meds/Results Medications: Active Medications Generic Name Dose Route Start Last Admin Trade Name Freq PRN Reason Stop Dose Admin Acetaminophen 650 mg 08/29/24 18:17 Acetaminophen 325 Mg Tablet PO Q4H PRN Mild Pain (1-3) or Fever Acetaminophen 650 mg 08/30/24 00:43 08/30/24 06:56 Acetaminophen 650 Mg Suppository RECTAL 650 mg Q6H PRN Administration Mild Pain (1-3) or Fever Acyclovir 400 mg 08/30/24 14:00 09/07/24 05:06 Acyclovir 200 Mg Capsule FEED TUBE 09/09/24 06:01 400 mg Q8HR RHYS Administration Dextrose 12.5 gm 08/29/24 20:42 08/31/24 20:55 Dextrose 50% 25 Gm/50 Ml Syringe IV PUSH 12.5 gm PRN PRN Administration Hypoglycemia Protocol Enoxaparin Sodium 60 mg 09/03/24 11:35 09/06/24 23:25 Enoxaparin 60 Mg/0.6 Ml Syringe SUB-Q 60 mg Q12H RHYS Administration Glucagon 1 mg 08/29/24 20:42 Glucagon For Inj 1 Mg Vial IM PRN PRN Hypoglycemia Protocol Glucose 15 gm 08/29/24 20:42 Glucose Oral Gel 15 Gm Of Glucse In 37.5 Gm Tube PO PRN PRN Hypoglycemia Protocol Hydrocortisone Sodium Succinate 20 mg 09/03/24 09:00 09/07/24 08:24 Hydrocortisone Sodium Succinate 100 Mg/2 Ml Vial IV PUSH 20 mg QAM RHYS Administration Dextrose 1,000 mls @ 100 mls/hr 08/29/24 20:42 Dextrose 5% 1,000 Ml IVPB PRN PRN Hypoglycemia Protocol Fentanyl Citrate 2,500 mcg in 250 mls @ 15 mls/hr 08/30/24 10:20 09/07/24 10:24 Fentanyl 2,500 Mcg/Ns 250 Ml IV CONT 150 mcg/hr .[id number] RHYS 15 mls/hr Titration Protocol 150 MCG/HR Midazolam HCl 100 mg in 100 mls @ 3 mls/hr 08/30/24 10:20 09/07/24 10:24 Versed 100 Mg/Ns 100 Ml IV CONT 3 mg/hr .[id number] RHYS 3 mls/hr Titration Protocol 3 MG/HR Micafungin Sodium 100 mg/ 100 mls @ 100 mls/hr 09/04/24 10:20 09/07/24 09:22 Sodium Chloride IVPB 100 mls/hr DAILY RHYS Administration Levofloxacin/Dextrose 750 mg in 150 mls @ 100 mls/hr 09/05/24 09:00 09/07/24 08:26 Levaquin 750 Mg/D5w 150 Ml IVPB 750 mls/hr Q48H RHYS Administration Meropenem 1 gm in 100 mls @ 200 mls/hr 09/06/24 11:00 09/07/24 08:30 IVPB 200 mls/hr Q12HR RHYS Administration Dexmedetomidine HCl 400 mcg in 100 mls @ 8.94 mls/hr 09/06/24 14:00 09/07/24 10:00 Precedex 400 Mcg/100 Ml IV CONT 0.6 mcg/kg/hr .[id number] RHYS 8.94 mls/hr Titration Protocol 0.6 MCG/KG/HR Potassium Chloride 100 mls @ 25 mls/hr 09/07/24 07:52 09/07/24 08:48 Kcl 40 Meq/Water 100 Ml IVPB 09/07/24 11:51 25 mls/hr ONCE ONE Administration Insulin Aspart 3 - 6 units 08/31/24 16:39 09/07/24 08:25 Insulin Aspart (*Bkc) 100 Units/Ml SUB-Q Not Given Q4HR [facility] Protocol Metoclopramide HCl 10 mg 09/01/24 08:00 09/07/24 05:06 Metoclopramide Hcl 10 Mg/10 Ml Soln Udc FEED TUBE 10 mg Q6HR RHYS Administration Metoprolol Tartrate 25 mg 09/06/24 13:55 09/07/24 10:24 Metoprolol Tartrate 25 Mg Tablet PO 25 mg Q12HR RHYS Administration Multi-Ingred Cream/Lotion/Oil/Oint 1 applic 08/30/24 10:20 09/07/24 09:22 Mineral Oil/White Petrolatum Ointment EACH EYE 1 applic Q12HR RHYS Administration Pantoprazole Sodium 40 mg 08/30/24 10:40 09/07/24 08:27 Pantoprazole Sodium Iv 40 Mg Vial IV PUSH 40 mg Q12HR RHYS Administration Prednisolone Acetate 1 drop 08/30/24 21:00 09/07/24 09:22 Prednisolone Acetate 1% Ophth 5 Ml RIGHT EYE 1 drop Q12HR RHYS Administration Sodium Chloride 10 ml 08/30/24 12:17 Central Line Flush IV PUSH PRN PRN with TPN bag changes Sodium Chloride 20 ml 08/30/24 12:17 Central Line Flush IV PUSH PRN PRN after blood draws Sodium Chloride 10 ml 09/04/24 22:00 09/07/24 05:06 Central Line Flush IV PUSH 10 ml Q8HR RHYS Administration Sodium Chloride 20 ml 09/04/24 12:30 Central Line Flush IV PUSH PRN PRN after blood draws Radiology Results: ITS Impressions Head CT 08/29/24 21:55 Impression: No acute intracranial hemorrhage or suspicious mass effect. Chest/Abdomen/Pelvis CT 08/29/24 21:57 IMPRESSION: Dense bilateral multifocal infiltrates, predominantly perihilar, as detailed above. No additional source is detected for patient's profound sepsis. Abdomen X-Ray 08/30/24 11:02 IMPRESSION: Bilateral pneumonia. Differential include pulmonary edema. Venous Doppler Study 09/03/24 10:50 IMPRESSION: 1. Extensive deep and superficial venous thrombosis throughout the bilateral upper lungs as detailed above. Findings were discussed with Jacinto Victor, the nurse caring for the patient, at 10:59 AM. ADDENDUM: 09/03/24 1400 CORRECTION: There is a dictation error in the impression section. With the correction capi talized this should read- Extensive deep and superficial venous thrombosis throughout the bilateral upper LIMBS as detailed above. Chest X-Ray 09/07/24 07:34 Impression: Diffuse hazy and interstitial pulmonary disease. Correlate for pulmonary edema or pneumonia with probable underlying COPD or other chronic interstitial disease. Support tubes, as above. Labs Labs: Laboratory Results - last 24 hr 08/31/24 09/06/24 09/06/24 08:30 15:19 17:25 WBC RBC Hgb Hct MCV MCH MCHC RDW Plt Count MPV Immature Gran % (Auto) Neut % (Auto) Lymph % (Auto) [place] % (Auto) Eos % (Auto) Baso % (Auto) Lymph # (Auto) [place] # (Auto) Eos # (Auto) Baso # (Auto) Abs Immat Gran (auto) Absolute Neuts (auto) Absolute Nucleated RBC Total Counted Neutrophils % (Manual) Band Neutrophils % Lymphocytes % (Manual) Monocytes % (Manual) Basophils % (Manual) Myelocytes % Promyelocytes % (Man) Nucleated RBC % Abs Neuts (Manual) Abs Lymphs (Manual) Abs Monocytes (Manual) Abs Basophils (Manual) Atypical Lymphocytes Platelet Estimate Clumped Platelets Large Platelets Hypochromasia Anisocytosis Macrocytosis Ovalocytes Stomatocytes Schistocytes Puncture Site ABG pH ABG pCO2 ABG pO2 ABG PO2/FiO2 Ratio ABG HCO3 ABG O2 Saturation ABG O2 Content ABG Base Excess A-a Gradient Oxyhemoglobin Carboxyhemoglobin Methemoglobin Reduced Hemoglobin Total Hemoglobin O2 Delivery Device O2 Liters/Min Minute Volume Vent Rate Vent Mode FiO2 Tidal Volume PEEP Peak Inspir Pressure Pressure Support Sodium Potassium Chloride Carbon Dioxide Anion Gap BUN Creatinine Estim Creat Clear Calc Estimated GFR Glucose POC Capillary Glucose 94 100 Calcium Phosphorus Magnesium Total Bilirubin AST ALT Alkaline Phosphatase Total Protein Albumin L. pneumophila DFA Not detected Pneumocystis carinii Ag Not detected 09/06/24 09/06/24 09/07/24 18:16 20:30 00:45 WBC RBC Hgb Hct MCV MCH MCHC RDW Plt Count MPV Immature Gran % (Auto) Neut % (Auto) Lymph % (Auto) [place] % (Auto) Eos % (Auto) Baso % (Auto) Lymph # (Auto) [place] # (Auto) Eos # (Auto) Baso # (Auto) Abs Immat Gran (auto) Absolute Neuts (auto) Absolute Nucleated RBC Total Counted Neutrophils % (Manual) Band Neutrophils % Lymphocytes % (Manual) Monocytes % (Manual) Basophils % (Manual) Myelocytes % Promyelocytes % (Man) Nucleated RBC % Abs Neuts (Manual) Abs Lymphs (Manual) Abs Monocytes (Manual) Abs Basophils (Manual) Atypical Lymphocytes Platelet Estimate Clumped Platelets Large Platelets Hypochromasia Anisocytosis Macrocytosis Ovalocytes Stomatocytes Schistocytes Puncture Site Artline ABG pH 7.515 H* ABG pCO2 27.0 L ABG pO2 473.2 H ABG PO2/FiO2 Ratio 4.73 ABG HCO3 21.3 L ABG O2 Saturation 99.9 ABG O2 Content 13.0 L ABG Base Excess -1.1 A-a Gradient 212.8 Oxyhemoglobin 98.2 Carboxyhemoglobin Methemoglobin Reduced Hemoglobin Total Hemoglobin 8.4 L O2 Delivery Device Ventilator O2 Liters/Min Not Reportable Minute Volume Not Reportable Vent Rate 28 Vent Mode Assist control FiO2 100 Tidal Volume 370 PEEP 12 Peak Inspir Pressure Not Reportable Pressure Support Not Reportable Sodium Potassium Chloride Carbon Dioxide Anion Gap BUN Creatinine Estim Creat Clear Calc Estimated GFR Glucose POC Capillary Glucose 116 H 131 H Calcium Phosphorus Magnesium Total Bilirubin AST ALT Alkaline Phosphatase Total Protein Albumin L. pneumophila DFA Pneumocystis carinii Ag 09/07/24 09/07/24 09/07/24 04:12 04:46 04:54 WBC 45.9 H RBC 2.40 L Hgb 7.1 L Hct 21.9 L MCV 91.3 MCH 29.6 MCHC 32.4 RDW 23.0 H Plt Count 423 H MPV 11.2 H Immature Gran % (Auto) Not Reportable Neut % (Auto) Not Reportable Lymph % (Auto) Not Reportable [place] % (Auto) Not Reportable Eos % (Auto) Not Reportable Baso % (Auto) Not Reportable Lymph # (Auto) Not Reportable [place] # (Auto) Not Reportable Eos # (Auto) Not Reportable Baso # (Auto) Not Reportable Abs Immat Gran (auto) Not Reportable Absolute Neuts (auto) Not Reportable Absolute Nucleated RBC Not Reportable Total Counted 100 Neutrophils % (Manual) 62 Band Neutrophils % 5 Lymphocytes % (Manual) 21.0 Monocytes % (Manual) 5 Basophils % (Manual) 2 H Myelocytes % 3 Promyelocytes % (Man) 2 Nucleated RBC % Not Reportable Abs Neuts (Manual) 30.75 H Abs Lymphs (Manual) 9.63 H Abs Monocytes (Manual) 2.29 H Abs Basophils (Manual) 0.91 H Atypical Lymphocytes Present Platelet Estimate Increased Clumped Platelets Present Large Platelets Present Hypochromasia 1+ Anisocytosis 1+ Macrocytosis 1+ Ovalocytes 1+ Stomatocytes 1+ Schistocytes Rare Puncture Site Artline ABG pH 7.529 H* ABG pCO2 24.5 L ABG pO2 85.4 ABG PO2/FiO2 Ratio 2.13 ABG HCO3 20.0 L ABG O2 Saturation 97.5 ABG O2 Content 10.3 L ABG Base Excess -2.2 A-a Gradient 171.6 Oxyhemoglobin 95.3 Carboxyhemoglobin 1.3 Methemoglobin 0.3 Reduced Hemoglobin 3.1 Total Hemoglobin 7.6 L* O2 Delivery Device Ventilator O2 Liters/Min Not Reportable Minute Volume Not Reportable Vent Rate 26 Vent Mode Cmv FiO2 40 Tidal Volume 370 PEEP 12 Peak Inspir Pressure Not Reportable Pressure Support Not Reportable Sodium 148 H Potassium 3.2 L Chloride 119 H Carbon Dioxide 25 Anion Gap 4 BUN 116 H* Creatinine 1.05 H Estim Creat Clear Calc 35 Estimated GFR 52 L Glucose 128 H POC Capillary Glucose 82 Calcium 12.3 H* Phosphorus 3.0 Magnesium 2.1 Total Bilirubin 0.4 AST 66 H ALT 20 Alkaline Phosphatase 115 Total Protein 5.0 L Albumin 2.3 L L. pneumophila DFA Pneumocystis carinii Ag 09/07/24 07:18 WBC RBC Hgb Hct MCV MCH MCHC RDW Plt Count MPV Immature Gran % (Auto) Neut % (Auto) Lymph % (Auto) [place] % (Auto) Eos % (Auto) Baso % (Auto) Lymph # (Auto) [place] # (Auto) Eos # (Auto) Baso # (Auto) Abs Immat Gran (auto) Absolute Neuts (auto) Absolute Nucleated RBC Total Counted Neutrophils % (Manual) Band Neutrophils % Lymphocytes % (Manual) Monocytes % (Manual) Basophils % (Manual) Myelocytes % Promyelocytes % (Man) Nucleated RBC % Abs Neuts (Manual) Abs Lymphs (Manual) Abs Monocytes (Manual) Abs Basophils (Manual) Atypical Lymphocytes Platelet Estimate Clumped Platelets Large Platelets Hypochromasia Anisocytosis Macrocytosis Ovalocytes Stomatocytes Schistocytes Puncture Site ABG pH ABG pCO2 ABG pO2 ABG PO2/FiO2 Ratio ABG HCO3 ABG O2 Saturation ABG O2 Content ABG Base Excess A-a Gradient Oxyhemoglobin Carboxyhemoglobin Methemoglobin Reduced Hemoglobin Total Hemoglobin O2 Delivery Device O2 Liters/Min Minute Volume Vent Rate Vent Mode FiO2 Tidal Volume PEEP Peak Inspir Pressure Pressure Support Sodium Potassium Chloride Carbon Dioxide Anion Gap BUN Creatinine Estim Creat Clear Calc Estimated GFR Glucose POC Capillary Glucose 129 H Calcium Phosphorus Magnesium Total Bilirubin AST ALT Alkaline Phosphatase Total Protein Albumin L. pneumophila DFA Pneumocystis carinii Ag
--- NOTE | 2024-09-07 11:03 | PCFNICU ---
ICU Rounding Note: Pt current nutrition is Vital AF 1.2 @ 30 ml/h. Nutrition recommendation: Advance to goal of 40 ml/h and monitor for tolerance. Last recorded weight is 61.2 kg. Bowel Motility: +3 BMs per FMS Labs Reviewed: Hgb 7.1, Hct 21.9, Alb 2.3, Na 148, K+ 3.2, BUN 116, Cre 1.05, Glu 129 Meds Noted: Fentanyl, versed, protonix, precedex, reglan Skin: Stage 3 coccyx Additional Notes: Advance tube feeding to goal 40 ml/h to provide 1056 kcal, 66 g protein, 892 ml free water. Meets needs @ 17 kcal/kg, 1 g protein/kg. Not adequate for needs. Will try to advance to 50 ml/h if not extubated. Following daily in ICU rounds. Monitoring tube feeding orders, weights, labs, tolerance, plan of care, vent settings, vitals Follow up Tuesday/Tuesday. Daily rounds.
[2024-09-07] MEDS: PAMIDRONATE DISODIUM 30 MG in DEXTROSE 5% IN WATER 500 ML 125 MG IVPB (11:34)
[2024-09-07] MEDS: CALCITONIN SALMON INJ 400 UNITS/2 ML VIAL 240 UNITS SUB-Q ×2 (11:34→20:49)
[2024-09-07] MEDS: ENOXAPARIN 60 MG/0.6 ML SYRINGE SUB-Q (11:35)
--- NOTE | 2024-09-07 11:49 | P.PNINT_ITS ---
Progress Note: A&P Assessment and Plan (1) Acute respiratory failure: Code(s): J96.00 - Acute respiratory failure, unspecified whether with hypoxia or hypercapnia Status: Acute Assessment and Plan: Acute respiratory failure and sepsis secondary to bilateral Pseudomonas pneumonia in an immunocompromised patient who was on methotrexate and hydroxychloroquine. -ARDS physiology -08/30: Intubated for tachypnea, tachycardia, respiratory distress 08/31: bronchoscopy which did not show any LR hemorrhage or tracheobronchitis 08/31: BAL culture is growing Pseudomonas which is pansensitive. Also Milagros glabrata -08/29: Blood culture negative -08/20: sputum culture negative -09/04: Repeat blood cultures are negative PCR for influenza RSV and COVID was negative Urine Legionella negative and pneumococcal antigen negative Negative Mycoplasma IgM Continue hydrocortisone but will decrease dose as patient was on chronic low- dose prednisone -09/04: Patient placed in prone position due to increased oxygen requirements secondary to ARDS and Pseudomonas pneumonia. Patient was also paralyzed with rocuronium and started on Nimbex infusion for ventilator synchrony 09/05: prone position, ABGs reviewed, ventilator adjusted. Patient will be placed in supine position, off Nimbex infusion 09/06: Patient was placed in supine position yesterday and remains in supine position this morning. Currently on 45% FiO2 and peep of 12 with good O2 sats. I have asked the bedside RN to start weaning sedation, start Precedex infusion if needed 09/06: . Given that patient's WBC count is elevated will switch cefepime to meropenem (09/06). Elevated WBC count could also be related to steroids 09/07: Continue meropenem and Levaquin, WBC count trending down, continue to monitor. Chest x-ray also improving 08/29 CT Chest Dense bilateral multifocal infiltrates, predominantly perihilar, as detailed above. No additional source is detected for patient's profound sepsis (2) Gastroesophageal reflux disease: Qualifiers: Esophagitis presence: esophagitis presence not specified Qualified Code(s): K21.9 - Gastro-esophageal reflux disease without esophagitis Code(s): K21.9 - Gastro-esophageal reflux disease without esophagitis Status: Acute Assessment and Plan: PPI q.12 hours (3) FRANK (acute kidney injury): Code(s): N17.9 - Acute kidney failure, unspecified Status: Acute Assessment and Plan: Patient presented with elevated creatinine which was likely secondary to sepsis. Creatinine improved with IV fluids Cut down on further IV fluids and patient was given IV fluids Urine output improved. Patient was given Lasix yesterday to prevent volume overload 09/02 Overnight creatinine has slightly increased again Hold diuretics. 25% albumin was given 09/03 creatinine improved and states in normal range Will try to maintain map above 65 mmHg Monitor urine output electrolytes and creatinine Status post IV Lasix with adequate urine output, [place] catheter for accurate I&Os increased BUN and hypercalcemia -discussed with Nephrology, will diurese patient with Diuril -hypercalcemia: Starting calcitonin and pamidronate along with diuretics (4) Sepsis: Qualifiers: Sepsis acute organ dysfunction status: with acute organ dysfunction Sepsis type: sepsis due to unspecified organism Severe sepsis acute organ dysfunction type: encephalopathy Severe sepsis shock status: without septic shock Qualified Code(s): A41.9 - Sepsis, unspecified organism; R65.20 - Severe sepsis without septic shock; G93.41 - Metabolic encephalopathy Code(s): A41.9 - Sepsis, unspecified organism Status: Acute Assessment and Plan: See above (5) Immunosuppressed status: Code(s): D89.9 - Disorder involving the immune mechanism, unspecified Status: Acute Assessment and Plan: Patient was on steroids and immunosuppressants at home (6) Rheumatoid arthritis: Code(s): M06.9 - Rheumatoid arthritis, unspecified Status: Acute Assessment and Plan: Hold methotrexate and hydroxychloroquine (7) Toxic metabolic encephalopathy: Code(s): G92.8 - Other toxic encephalopathy Status: Acute Assessment and Plan: Patient presented with altered mental status and confusion which appears to be encephalopathy ache. Patient has sepsis and was on several medication including tramadol and benzodiazepine at home Head CT was negative TSH was normal Patient obviously now sedated and intubated. Patient has been on benzodiazepine and pain medications chronically and requiring significant amount of medications to keep her sedated (8) Pneumonia: Qualifiers: Laterality: bilateral Lung location: unspecified part of lung Pneumonia type: due to unspecified organism Qualified Code(s): J18.9 - Pneumonia, unspecified organism Code(s): J18.9 - Pneumonia, unspecified organism Status: Acute Assessment and Plan: See above (9) Urinary tract infection: Qualifiers: Hematuria presence: with hematuria Urinary tract infection type: site unspecified Qualified Code(s): N39.0 - Urinary tract infection, site not specified; R31.9 - Hematuria, unspecified Code(s): N39.0 - Urinary tract infection, site not specified Status: Acute Assessment and Plan: UA suggestive of UTI 08/29: Urine cultures - negative (10) Herpes labialis: Code(s): B00.1 - Herpesviral vesicular dermatitis Status: Acute Assessment and Plan: Continue acyclovir through tube (11) Hypoglycemia: Code(s): E16.2 - Hypoglycemia, unspecified Status: Acute Assessment and Plan: Patient had couple episodes of hypoglycemia early in the course. OFF D10 infusion -blood sugars are stable as patient now on tube feed (12) Ileus: Code(s): K56.7 - Ileus, unspecified Status: Acute Assessment and Plan: Although bowel sounds are present patient has not been tolerating tube feeds with very high residuals. -On Tube feeds 20 mL/hour. Continue reglan, will increase tube feeds gradually to goal (13) Peripheral ischemia: Code(s): I99.8 - Other disorder of circulatory system Status: Acute Assessment and Plan: Patient has developed discoloration/gangrene of all 10 fingers. likely systemic presentation suggest against vascular clot, septic emboli, pseudomonal infection Radial pulses are dopplerable Blood pressure are adequate Monitor maintain mean arterial pressure above 65 mmHg -discoloration on her fingers are improving, also blistering noted on some of the fingers, continue to monitor (14) Swelling of both upper extremities: Code(s): M79.89 - Other specified soft tissue disorders Status: Acute Assessment and Plan: Likely secondary to edema as it is bilateral 09/03: Bilateral upper extremity venous Doppler showed extensive deep and superficial venous thrombosis throughout the bilateral upper extremities -continue therapeutic Lovenox IV q.12 hours Plan DVT prophylaxis -therapeutic Lovenox Stress ulcer prophylaxis -Protonix IV q.12 hours Nutrition -tolerating tube feeds at 20 mL/hour, continue Reglan and will increase tube feeds gradually to goal Code Status - DNR Total Critical Care Time - 33 minutes Discussed with patient's ,[id number]. Updated them with patient's condition, plan of care. I also showed them the chest x-ray with comparison to the previous ones. They are aware that switched antibiotics on 09/06. I answered all the questions. Due to a high probability of clinically significant, life threatening deterioration, the patient required my highest level of preparedness to intervene emergently and I personally spent this critical care time directly and personally managing the patient. This critical care time included obtaining a history; examining the patient; pulse oximetry; ordering and review of studies; arranging urgent treatment with development of a management plan; evaluation of patient's response to treatment; frequent reassessment; and discussions with other providers. It was exclusive of separately billable procedures and treating other patients and teaching time. Please see Assessment and Plan section and the rest of the note for further information on patient assessment and treatment Subjective Date/time seen: 09/07/24 11:49 Interval history: 68-year-old with a history of rheumatoid arthritis, Crohn's, on immunosuppressive medications, GERD admitted to ICU for pneumonia and respiratory failure requiring intubation and mechanical ventilation Reason for consult: Acute respiratory failure, ARDS physiology, sepsis, encephalopathy, pneumonia, herpes labialis, hyperglycemia, ileus, bilateral upper extremity DVTs 09/07/2024: Patient seen and examined the ICU, remains intubated on CMV mode of ventilation, peep of 12, 40% FiO2. In supine position. Sedated with fentanyl, Versed. Off propofol infusion. Also started on Precedex infusion. Tolerating tube feeds, adequate urine output, afebrile Review of Systems Review of Systems: ROS unobtainable: Yes unobtainable due to endotracheal tube, unobtainable due to medical condition and unobtainable due to mental status Exam Narrative: General: Pt is now sedated, intubated, in Supine position Lungs/Chest: Coarse breath sounds bilaterally, decreased at bases, no wheezing Cardiac: Tachycardia RRR. Normal S1 S2. No murmurs Circulation: Bilateral radial pulses dopplerable and bilateral pedal pulses are palpable, Abdomen: Decreased bowel sounds. Soft. NT. ND. Extremities: Warm, edema of both arms right more than left with some weeping : [place] in place Neurologic: Pupils equal and reactive, sclera is clear, intubated, sedated, does not open her eyes or follow simple commands. Skin: 08/30 edema with breakdown of the skin which appears to be popped blisters on right labia. She also has several scabbed wounds on her both legs which are in various healing stage but no open or infected wound. All 10 fingers discoloration is improving, blisters on some of the fingers. Fingers are more warm. No discoloration noted on the toes bilaterally, Objective Data Vital Signs Vital Signs: Vital Signs - 24 hr 09/06/24 12:00 09/06/24 12:00 09/06/24 12:00 Temperature Pulse Rate 128 H 128 H 129 H Respiratory Rate 28 H 28 H 28 H Blood Pressure Pulse Oximetry Oxygen Delivery Fraction of Inspired Oxygen 09/06/24 12:00 09/06/24 12:00 09/06/24 12:00 Temperature Pulse Rate 133 H 129 H Respiratory Rate 28 H Blood Pressure Pulse Oximetry 95 Oxygen Delivery Mechanical Ventilation Fraction of Inspired Oxygen 40 40 09/06/24 12:00 09/06/24 14:00 09/06/24 14:00 Temperature Pulse Rate 134 H 132 H 132 H Respiratory Rate 28 H 28 H 28 H Blood Pressure 179/91 H Pulse Oximetry 95 Oxygen Delivery Fraction of Inspired Oxygen 09/06/24 14:00 09/06/24 14:00 09/06/24 14:33 Temperature Pulse Rate 132 H 129 H 135 H Respiratory Rate 28 H Blood Pressure 162/82 H Pulse Oximetry 95 95 Oxygen Delivery Mechanical Ventilation Fraction of Inspired Oxygen 40 09/06/24 15:00 09/06/24 15:03 09/06/24 15:09 Temperature Pulse Rate 133 H 133 H 132 H Respiratory Rate 28 H 28 H Blood Pressure Pulse Oximetry Oxygen Delivery Fraction of Inspired Oxygen 09/06/24 15:09 09/06/24 16:00 09/06/24 16:00 Temperature Pulse Rate 132 H 119 H 118 H Respiratory Rate 28 H 28 H Blood Pressure Pulse Oximetry 97 Oxygen Delivery Mechanical Ventilation Fraction of Inspired Oxygen 40 09/06/24 16:00 09/06/24 16:00 09/06/24 16:00 Temperature 98.2 F Pulse Rate 117 H 121 H Respiratory Rate 28 H 28 H Blood Pressure 140/80 Pulse Oximetry 94 Oxygen Delivery Fraction of Inspired Oxygen 40 09/06/24 16:00 09/06/24 16:00 09/06/24 17:15 Temperature Pulse Rate 131 H 128 H 125 H Respiratory Rate 28 H 28 H Blood Pressure Pulse Oximetry 95 Oxygen Delivery Mechanical Ventilation Fraction of Inspired Oxygen 40 09/06/24 17:19 09/06/24 17:20 09/06/24 17:21 Temperature Pulse Rate 119 H 122 H 120 H Respiratory Rate 28 H 28 H 28 H Blood Pressure Pulse Oximetry Oxygen Delivery Fraction of Inspired Oxygen 09/06/24 18:00 09/06/24 18:00 09/06/24 18:00 Temperature Pulse Rate 112 H 140 H 140 H Respiratory Rate 28 H 38 H Blood Pressure 140/81 190/100 H Pulse Oximetry 100 74 L Oxygen Delivery Fraction of Inspired Oxygen 09/06/24 18:00 09/06/24 18:07 09/06/24 18:08 Temperature Pulse Rate 140 H 126 H 125 H Respiratory Rate 32 H 25 H 25 H Blood Pressure Pulse Oximetry Oxygen Delivery Fraction of Inspired Oxygen 09/06/24 18:10 09/06/24 18:11 09/06/24 18:30 Temperature Pulse Rate 123 H 123 H 123 H Respiratory Rate 40 H 40 H 32 H Blood Pressure Pulse Oximetry Oxygen Delivery Fraction of Inspired Oxygen 09/06/24 18:31 09/06/24 20:00 09/06/24 20:00 Temperature Pulse Rate 123 H 102 H 102 H Respiratory Rate 34 H 28 H 28 H Blood Pressure Pulse Oximetry Oxygen Delivery Fraction of Inspired Oxygen 09/06/24 20:00 09/06/24 20:00 09/06/24 20:00 Temperature Pulse Rate 102 H 101 H 101 H Respiratory Rate 28 H 28 H Blood Pressure Pulse Oximetry 98 Oxygen Delivery Mechanical Ventilation Fraction of Inspired Oxygen 40 09/06/24 20:00 09/06/24 20:00 09/06/24 20:02 Temperature 97.4 F L Pulse Rate 101 H 102 H Respiratory Rate 28 H 28 H Blood Pressure 117/70 Pulse Oximetry 98 Oxygen Delivery Fraction of Inspired Oxygen 40 09/06/24 20:25 09/06/24 20:59 09/06/24 22:00 Temperature Pulse Rate 99 99 104 H Respiratory Rate 26 H Blood Pressure 132/70 Pulse Oximetry 99 100 Oxygen Delivery Mechanical Ventilation Fraction of Inspired Oxygen 40 09/06/24 22:00 09/06/24 22:00 09/06/24 22:00 Temperature Pulse Rate 104 H 104 H 104 H Respiratory Rate 26 H 26 H Blood Pressure Pulse Oximetry Oxygen Delivery Fraction of Inspired Oxygen 09/06/24 22:00 09/06/24 23:40 09/07/24 00:00 Temperature Pulse Rate 104 H 100 99 Respiratory Rate 26 H 26 H Blood Pressure Pulse Oximetry 100 100 Oxygen Delivery Mechanical Ventilation Mechanical Ventilation Fraction of Inspired Oxygen 40 40 09/07/24 00:00 09/07/24 00:00 09/07/24 00:00 Temperature 98.1 F Pulse Rate 99 99 Respiratory Rate 26 H Blood Pressure 114/62 Pulse Oximetry 100 Oxygen Delivery Fraction of Inspired Oxygen 40 09/07/24 00:00 09/07/24 00:00 09/07/24 00:00 Temperature Pulse Rate 99 99 99 Respiratory Rate 26 H 26 H 26 H Blood Pressure Pulse Oximetry Oxygen Delivery Fraction of Inspired Oxygen 09/07/24 01:21 09/07/24 02:00 09/07/24 02:00 Temperature Pulse Rate 101 H 99 99 Respiratory Rate 26 H 26 H 26 H Blood Pressure Pulse Oximetry Oxygen Delivery Fraction of Inspired Oxygen 09/07/24 02:00 09/07/24 02:00 09/07/24 02:00 Temperature Pulse Rate 99 99 99 Respiratory Rate 26 H 26 H Blood Pressure 103/58 L Pulse Oximetry 99 Oxygen Delivery Fraction of Inspired Oxygen 09/07/24 02:10 09/07/24 02:23 09/07/24 02:23 Temperature Pulse Rate 99 98 98 Respiratory Rate 26 H 26 H Blood Pressure Pulse Oximetry 99 Oxygen Delivery Mechanical Ventilation Fraction of Inspired Oxygen 40 09/07/24 02:27 09/07/24 02:39 09/07/24 02:39 Temperature Pulse Rate 97 97 97 Respiratory Rate 26 H 26 H 26 H Blood Pressure Pulse Oximetry Oxygen Delivery Fraction of Inspired Oxygen 09/07/24 04:00 09/07/24 04:00 09/07/24 04:00 Temperature 98.5 F Pulse Rate 114 H 114 H Respiratory Rate 31 H 31 H Blood Pressure 145/75 H Pulse Oximetry 100 100 Oxygen Delivery Mechanical Ventilation Fraction of Inspired Oxygen 40 40 09/07/24 04:00 09/07/24 04:00 09/07/24 04:00 Temperature Pulse Rate 114 H 114 H 114 H Respiratory Rate 31 H 31 H 31 H Blood Pressure Pulse Oximetry Oxygen Delivery Fraction of Inspired Oxygen 09/07/24 04:00 09/07/24 05:40 09/07/24 06:00 Temperature Pulse Rate 113 H 104 H 95 Respiratory Rate 26 H Blood Pressure 114/83 Pulse Oximetry 99 99 Oxygen Delivery Mechanical Ventilation Fraction of Inspired Oxygen 40 09/07/24 06:00 09/07/24 06:00 09/07/24 06:00 Temperature Pulse Rate 95 95 95 Respiratory Rate 26 H 26 H Blood Pressure Pulse Oximetry Oxygen Delivery Fraction of Inspired Oxygen 09/07/24 06:00 09/07/24 08:00 09/07/24 08:00 Temperature 99.3 F Pulse Rate 95 104 H 104 H Respiratory Rate 26 H 26 H 16 Blood Pressure 130/69 Pulse Oximetry 100 Oxygen Delivery Fraction of Inspired Oxygen 09/07/24 08:00 09/07/24 08:00 09/07/24 08:00 Temperature Pulse Rate 104 H 104 H 104 H Respiratory Rate 26 H 26 H Blood Pressure Pulse Oximetry Oxygen Delivery Fraction of Inspired Oxygen 09/07/24 08:33 09/07/24 08:33 09/07/24 08:38 Temperature Pulse Rate 92 92 93 Respiratory Rate 20 20 22 H Blood Pressure Pulse Oximetry Oxygen Delivery Fraction of Inspired Oxygen 09/07/24 08:38 09/07/24 09:42 09/07/24 10:00 Temperature 99.2 F Pulse Rate 93 109 H 112 H Respiratory Rate 22 H 23 H Blood Pressure 127/67 Pulse Oximetry 99 99 Oxygen Delivery Mechanical Ventilation Fraction of Inspired Oxygen 40 09/07/24 10:00 09/07/24 10:00 09/07/24 10:00 Temperature Pulse Rate 114 H 114 H 114 H Respiratory Rate 26 H 26 H 26 H Blood Pressure Pulse Oximetry Oxygen Delivery Fraction of Inspired Oxygen 09/07/24 10:00 09/07/24 10:24 09/07/24 10:24 Temperature Pulse Rate 114 H 109 H 109 H Respiratory Rate 26 H Blood Pressure Pulse Oximetry Oxygen Delivery Fraction of Inspired Oxygen 09/07/24 10:24 Temperature Pulse Rate 109 H Respiratory Rate 22 H Blood Pressure Pulse Oximetry Oxygen Delivery Fraction of Inspired Oxygen Intake/Output Intake/Output: Intake & Output 09/04/24 09/05/24 09/06/24 09/07/24 23:59 23:59 23:59 23:59 Intake Total 2242.3 2564.0 2195.6 768.2 Output Total 900 1460 3200 750 Balance 1342.3 1104.0 -1004.4 18.2 Meds/Results Medications: Active Medications Generic Name Dose Route Start Last Admin Trade Name Freq PRN Reason Stop Dose Admin Acetaminophen 650 mg 08/29/24 18:17 Acetaminophen 325 Mg Tablet PO Q4H PRN Mild Pain (1-3) or Fever Acetaminophen 650 mg 08/30/24 00:43 08/30/24 06:56 Acetaminophen 650 Mg Suppository RECTAL 650 mg Q6H PRN Administration Mild Pain (1-3) or Fever Acyclovir 400 mg 08/30/24 14:00 09/07/24 05:06 Acyclovir 200 Mg Capsule FEED TUBE 09/09/24 06:01 400 mg Q8HR RHYS Administration Calcitonin [place] 240 units 09/07/24 10:45 09/07/24 11:34 Calcitonin [place] Inj 400 Units/2 Ml Vial SUB-Q 09/09/24 21:01 240 units Q12HR RHYS Administration Dextrose 12.5 gm 08/29/24 20:42 08/31/24 20:55 Dextrose 50% 25 Gm/50 Ml Syringe IV PUSH 12.5 gm PRN PRN Administration Hypoglycemia Protocol Enoxaparin Sodium 60 mg 09/03/24 11:35 09/07/24 11:35 Enoxaparin 60 Mg/0.6 Ml Syringe SUB-Q 60 mg Q12H RHYS Administration Glucagon 1 mg 08/29/24 20:42 Glucagon For Inj 1 Mg Vial IM PRN PRN Hypoglycemia Protocol Glucose 15 gm 08/29/24 20:42 Glucose Oral Gel 15 Gm Of Glucse In 37.5 Gm Tube PO PRN PRN Hypoglycemia Protocol Hydrocortisone Sodium Succinate 20 mg 09/03/24 09:00 09/07/24 08:24 Hydrocortisone Sodium Succinate 100 Mg/2 Ml Vial IV PUSH 20 mg QAM RHYS Administration Dextrose 1,000 mls @ 100 mls/hr 08/29/24 20:42 Dextrose 5% 1,000 Ml IVPB PRN PRN Hypoglycemia Protocol Fentanyl Citrate 2,500 mcg in 250 mls @ 15 mls/hr 08/30/24 10:20 09/07/24 10:24 Fentanyl 2,500 Mcg/Ns 250 Ml IV CONT 150 mcg/hr .[id number] RHYS 15 mls/hr Titration Protocol 150 MCG/HR Midazolam HCl 100 mg in 100 mls @ 3 mls/hr 08/30/24 10:20 09/07/24 10:24 Versed 100 Mg/Ns 100 Ml IV CONT 3 mg/hr .[id number] RHYS 3 mls/hr Titration Protocol 3 MG/HR Micafungin Sodium 100 mg/ 100 mls @ 100 mls/hr 09/04/24 10:20 09/07/24 09:22 Sodium Chloride IVPB 100 mls/hr DAILY RHYS Administration Levofloxacin/Dextrose 750 mg in 150 mls @ 100 mls/hr 09/05/24 09:00 09/07/24 08:26 Levaquin 750 Mg/D5w 150 Ml IVPB 750 mls/hr Q48H RHYS Administration Meropenem 1 gm in 100 mls @ 200 mls/hr 09/06/24 11:00 09/07/24 08:30 IVPB 200 mls/hr Q12HR RHYS Administration Dexmedetomidine HCl 400 mcg in 100 mls @ 8.94 mls/hr 09/06/24 14:00 09/07/24 10:00 Precedex 400 Mcg/100 Ml IV CONT 0.6 mcg/kg/hr .[id number] RHYS 8.94 mls/hr Titration Protocol 0.6 MCG/KG/HR Potassium Chloride 100 mls @ 25 mls/hr 09/07/24 07:52 09/07/24 08:48 Kcl 40 Meq/Water 100 Ml IVPB 09/07/24 11:51 25 mls/hr ONCE ONE Administration Pamidronate Disodium 30 mg/ 510 mls @ 125 mls/hr 09/07/24 10:43 09/07/24 11:34 Dextrose IVPB 09/07/24 14:47 125 mls/hr ONCE ONE Administration Insulin Aspart 3 - 6 units 08/31/24 16:39 09/07/24 11:36 Insulin Aspart (*Bkc) 100 Units/Ml SUB-Q Not Given Q4HR [facility] Protocol Metoclopramide HCl 10 mg 09/01/24 08:00 09/07/24 11:35 Metoclopramide Hcl 10 Mg/10 Ml Soln Udc FEED TUBE 10 mg Q6HR RHYS Administration Metoprolol Tartrate 25 mg 09/06/24 13:55 09/07/24 10:24 Metoprolol Tartrate 25 Mg Tablet PO 25 mg Q12HR RHYS Administration Multi-Ingred Cream/Lotion/Oil/Oint 1 applic 08/30/24 10:20 09/07/24 09:22 Mineral Oil/White Petrolatum Ointment EACH EYE 1 applic Q12HR RHYS Administration Pantoprazole Sodium 40 mg 08/30/24 10:40 09/07/24 08:27 Pantoprazole Sodium Iv 40 Mg Vial IV PUSH 40 mg Q12HR RHYS Administration Prednisolone Acetate 1 drop 08/30/24 21:00 09/07/24 09:22 Prednisolone Acetate 1% Ophth 5 Ml RIGHT EYE 1 drop Q12HR RHYS Administration Sodium Chloride 10 ml 08/30/24 12:17 Central Line Flush IV PUSH PRN PRN with TPN bag changes Sodium Chloride 20 ml 08/30/24 12:17 Central Line Flush IV PUSH PRN PRN after blood draws Sodium Chloride 10 ml 09/04/24 22:00 09/07/24 05:06 Central Line Flush IV PUSH 10 ml Q8HR RHYS Administration Sodium Chloride 20 ml 09/04/24 12:30 Central Line Flush IV PUSH PRN PRN after blood draws Radiology Results: ITS Impressions Head CT 08/29/24 21:55 Impression: No acute intracranial hemorrhage or suspicious mass effect. Chest/Abdomen/Pelvis CT 08/29/24 21:57 IMPRESSION: Dense bilateral multifocal infiltrates, predominantly perihilar, as detailed above. No additional source is detected for patient's profound sepsis. Abdomen X-Ray 08/30/24 11:02 IMPRESSION: Bilateral pneumonia. Differential include pulmonary edema. Venous Doppler Study 09/03/24 10:50 IMPRESSION: 1. Extensive deep and superficial venous thrombosis throughout the bilateral upper lungs as detailed above. Findings were discussed with Jacinto Victor, the nurse caring for the patient, at 10:59 AM. ADDENDUM: 09/03/24 1400 CORRECTION: There is a dictation error in the impression section. With the correction capitalized this should read- Extensive deep and superficial venous thrombosis throughout the bilateral upper LIMBS as detailed above. Chest X-Ray 09/07/24 07:34 Impression: Diffuse hazy and interstitial pulmonary disease. Correlate for pulmonary edema or pneumonia with probable underlying COPD or other chronic interstitial disease. Support tubes, as above. Labs Labs: Laboratory Results - last 24 hr 08/31/24 09/06/24 09/06/24 08:30 15:19 17:25 WBC RBC Hgb Hct MCV MCH MCHC RDW Plt Count MPV Immature Gran % (Auto) Neut % (Auto) Lymph % (Auto) [place] % (Auto) Eos % (Auto) Baso % (Auto) Lymph # (Auto) [place] # (Auto) Eos # (Auto) Baso # (Auto) Abs Immat Gran (auto) Absolute Neuts (auto) Absolute Nucleated RBC Total Counted Neutrophils % (Manual) Band Neutrophils % Lymphocytes % (Manual) Monocytes % (Manual) Basophils % (Manual) Myelocytes % Promyelocytes % (Man) Nucleated RBC % Abs Neuts (Manual) Abs Lymphs (Manual) Abs Monocytes (Manual) Abs Basophils (Manual) Atypical Lymphocytes Platelet Estimate Clumped Platelets Large Platelets Hypochromasia Anisocytosis Macrocytosis Ovalocytes Stomatocytes Schistocytes Puncture Site ABG pH ABG pCO2 ABG pO2 ABG PO2/FiO2 Ratio ABG HCO3 ABG O2 Saturation ABG O2 Content ABG Base Excess A-a Gradient Oxyhemoglobin Carboxyhemoglobin Methemoglobin Reduced Hemoglobin Total Hemoglobin O2 Delivery Device O2 Liters/Min Minute Volume Vent Rate Vent Mode FiO2 Tidal Volume PEEP Peak Inspir Pressure Pressure Support Sodium Potassium Chloride Carbon Dioxide Anion Gap BUN Creatinine Estim Creat Clear Calc Estimated GFR Glucose POC Capillary Glucose 94 100 Calcium Phosphorus Magnesium Total Bilirubin AST ALT Alkaline Phosphatase Total Protein Albumin L. pneumophila DFA Not detected Pneumocystis carinii Ag Not detected 09/06/24 09/06/24 09/07/24 18:16 20:30 00:45 WBC RBC Hgb Hct MCV MCH MCHC RDW Plt Count MPV Immature Gran % (Auto) Neut % (Auto) Lymph % (Auto) [place] % (Auto) Eos % (Auto) Baso % (Auto) Lymph # (Auto) [place] # (Auto) Eos # (Auto) Baso # (Auto) Abs Immat Gran (auto) Absolute Neuts (auto) Absolute Nucleated RBC Total Counted Neutrophils % (Manual) Band Neutrophils % Lymphocytes % (Manual) Monocytes % (Manual) Basophils % (Manual) Myelocytes % Promyelocytes % (Man) Nucleated RBC % Abs Neuts (Manual) Abs Lymphs (Manual) Abs Monocytes (Manual) Abs Basophils (Manual) Atypical Lymphocytes Platelet Estimate Clumped Platelets Large Platelets Hypochromasia Anisocytosis Macrocytosis Ovalocytes Stomatocytes Schistocytes Puncture Site Artline ABG pH 7.515 H* ABG pCO2 27.0 L ABG pO2 473.2 H ABG PO2/FiO2 Ratio 4.73 ABG HCO3 21.3 L ABG O2 Saturation 99.9 ABG O2 Content 13.0 L ABG Base Excess -1.1 A-a Gradient 212.8 Oxyhemoglobin 98.2 Carboxyhemoglobin Methemoglobin Reduced Hemoglobin Total Hemoglobin 8.4 L O2 Delivery Device Ventilator O2 Liters/Min Not Reportable Minute Volume Not Reportable Vent Rate 28 Vent Mode Assist control FiO2 100 Tidal Volume 370 PEEP 12 Peak Inspir Pressure Not Reportable Pressure Support Not Reportable Sodium Potassium Chloride Carbon Dioxide Anion Gap BUN Creatinine Estim Creat Clear Calc Estimated GFR Glucose POC Capillary Glucose 116 H 131 H Calcium Phosphorus Magnesium Total Bilirubin AST ALT Alkaline Phosphatase Total Protein Albumin L. pneumophila DFA Pneumocystis carinii Ag 09/07/24 09/07/24 09/07/24 04:12 04:46 04:54 WBC 45.9 H RBC 2.40 L Hgb 7.1 L Hct 21.9 L MCV 91.3 MCH 29.6 MCHC 32.4 RDW 23.0 H Plt Count 423 H MPV 11.2 H Immature Gran % (Auto) Not Reportable Neut % (Auto) Not Reportable Lymph % (Auto) Not Reportable [place] % (Auto) Not Reportable Eos % (Auto) Not Reportable Baso % (Auto) Not Reportable Lymph # (Auto) Not Reportable [place] # (Auto) Not Reportable Eos # (Auto) Not Reportable Baso # (Auto) Not Reportable Abs Immat Gran (auto) Not Reportable Absolute Neuts (auto) Not Reportable Absolute Nucleated RBC Not Reportable Total Counted 100 Neutrophils % (Manual) 62 Band Neutrophils % 5 Lymphocytes % (Manual) 21.0 Monocytes % (Manual) 5 Basophils % (Manual) 2 H Myelocytes % 3 Promyelocytes % (Man) 2 Nucleated RBC % Not Reportable Abs Neuts (Manual) 30.75 H Abs Lymphs (Manual) 9.63 H Abs Monocytes (Manual) 2.29 H Abs Basophils (Manual) 0.91 H Atypical Lymphocytes Present Platelet Estimate Increased Clumped Platelets Present Large Platelets Present Hypochromasia 1+ Anisocytosis 1+ Macrocytosis 1+ Ovalocytes 1+ Stomatocytes 1+ Schistocytes Rare Puncture Site Artline ABG pH 7.529 H* ABG pCO2 24.5 L ABG pO2 85.4 ABG PO2/FiO2 Ratio 2.13 ABG HCO3 20.0 L ABG O2 Saturation 97.5 ABG O2 Content 10.3 L ABG Base Excess -2.2 A-a Gradient 171.6 Oxyhemoglobin 95.3 Carboxyhemoglobin 1.3 Methemoglobin 0.3 Reduced Hemoglobin 3.1 Total Hemoglobin 7.6 L* O2 Delivery Device Ventilator O2 Liters/Min Not Reportable Minute Volume Not Reportable Vent Rate 26 Vent Mode Cmv FiO2 40 Tidal Volume 370 PEEP 12 Peak Inspir Pressure Not Reportable Pressure Support Not Reportable Sodium 148 H Potassium 3.2 L Chloride 119 H Carbon Dioxide 25 Anion Gap 4 BUN 116 H* Creatinine 1.05 H Estim Creat Clear Calc 35 Estimated GFR 52 L Glucose 128 H POC Capillary Glucose 82 Calcium 12.3 H* Phosphorus 3.0 Magnesium 2.1 Total Bilirubin 0.4 AST 66 H ALT 20 Alkaline Phosphatase 115 Total Protein 5.0 L Albumin 2.3 L L. pneumophila DFA Pneumocystis carinii Ag 09/07/24 09/07/24 07:18 11:32 WBC RBC Hgb Hct MCV MCH MCHC RDW Plt Count MPV Immature Gran % (Auto) Neut % (Auto) Lymph % (Auto) [place] % (Auto) Eos % (Auto) Baso % (Auto) Lymph # (Auto) [place] # (Auto) Eos # (Auto) Baso # (Auto) Abs Immat Gran (auto) Absolute Neuts (auto) Absolute Nucleated RBC Total Counted Neutrophils % (Manual) Band Neutrophils % Lymphocytes % (Manual) Monocytes % (Manual) Basophils % (Manual) Myelocytes % Promyelocytes % (Man) Nucleated RBC % Abs Neuts (Manual) Abs Lymphs (Manual) Abs Monocytes (Manual) Abs Basophils (Manual) Atypical Lymphocytes Platelet Estimate Clumped Platelets Large Platelets Hypochromasia Anisocytosis Macrocytosis Ovalocytes Stomatocytes Schistocytes Puncture Site ABG pH ABG pCO2 ABG pO2 ABG PO2/FiO2 Ratio ABG HCO3 ABG O2 Saturation ABG O2 Content ABG Base Excess A-a Gradient Oxyhemoglobin Carboxyhemoglobin Methemoglobin Reduced Hemoglobin Total Hemoglobin O2 Delivery Device O2 Liters/Min Minute Volume Vent Rate Vent Mode FiO2 Tidal Volume PEEP Peak Inspir Pressure Pressure Support Sodium Potassium Chloride Carbon Dioxide Anion Gap BUN Creatinine Estim Creat Clear Calc Estimated GFR Glucose POC Capillary Glucose 129 H 117 H Calcium Phosphorus Magnesium Total Bilirubin AST ALT Alkaline Phosphatase Total Protein Albumin L. pneumophila DFA Pneumocystis carinii Ag Quality VTE Prophylaxis VTE prophylaxis: pharmacologic ordered
[2024-09-07] MEDS: dexmedeTOMIDine 400 MCG/100 ML 400 MCG/100 ML BAG 14.9 MCG IV CONT (12:54)
[2024-09-07 14:54] LABS: Parathyroid Intact < 14.5 pg/mL (14.5-75.2)
[2024-09-07] MEDS: dexmedeTOMIDine 400 MCG/100 ML 400 MCG/100 ML BAG 22.35 MCG IV CONT (20:06)
[2024-09-08] VITALS (74 sets, daily range): BP systolic 108–188; BP diastolic 55–101; PULSE 87–149; RESP 21–50; TEMP 36.5–37.7; O2SAT 92–99
[2024-09-08] MEDS: ENOXAPARIN 60 MG/0.6 ML SYRINGE SUB-Q ×2 (00:09→10:38)
[2024-09-08] MEDS: METOCLOPRAMIDE HCL 10 MG/10 ML SOLN UDC FEED TUBE ×4 (00:09→18:44)
[2024-09-08] MEDS: dexmedeTOMIDine 400 MCG/100 ML 400 MCG/100 ML BAG 22.35 MCG IV CONT ×6 (00:36→23:11)
[2024-09-08] MEDS: MIDAZOLAM 100MG/NS 100ML(*CRX) 100 MG/100 ML BAG IV CONT (04:19)
[2024-09-08] MEDS: FENTANYL 2,500MCG/NS250ML(*CRX 2,500 MCG/250 ML BAG 7.5 MCG IV CONT (04:23)
[2024-09-08 04:44] LABS: Alveolar/Arterial O2 Gradient 139.2 mmHg; Carboxyhemoglobin 1.3 % THb (0-2.0); Fractional Inspired Oxygen 40 %; HCO3 ABG 24.5 mEq/l (22.0-26.0); Methemoglobin ABG 0.3 %THb (0-1.5); Oxygen Content ABG 10.0 %vol (16.0-22.0); Oxygen Saturation ABG 98.6 % (95.0-100.0); PCO2 ABG 29.9 mmHg (35.0-45.0); PO2 ABG 111.6 mmHg (80.0-100.0); PO2 FiO2 Ratio Arterial Blood 2.79 %; Reduced Hemoglobin 1.5 %THb (0-5.0)
[2024-09-08 04:48] LABS: Site Drawn ARTLINE
[2024-09-08 04:49] LABS: Arterial Blood Gas Tidal Volume 370 ml; Arterial Blood Gas Ventilator rate 22 /MIN
[2024-09-08 04:59] LABS: Hematocrit 21.8 % (37.0-47.0); Hemoglobin 7.0 g/dL (12.0-15.0); Mean Corpuscular HGB Conc 32.1 g/dl (32-36); Mean Corpuscular Hemoglobin 29.8 pg (26-34); Mean Corpuscular Volume 92.8 fl (80-100); Platelet Count Result 460 k/mm3 (150-375); Red Blood Count 2.35 M/mm3 (4.2-5.4); White Blood Count 45.4 K/mm3 (4.5-10.0)
[2024-09-08 05:14] LABS: Alanine Aminotransferase 23 U/L (6-35); Albumin Level 2.4 g/dL (3.5-5.1); Alkaline Phosphatase 119 U/L (38-126); Anion Gap 5 mmol/L (4-12); Aspartate Amino Transferase 73 U/L (14-36); Bilirubin,Total 0.4 mg/dL (0.2-1.3); Blood Urea Nitrogen 112 mg/dL (7-17); Calcium 11.8 mg/dL (8.4-10.2); Carbon Dioxide 25 mmol/L (22-30); Chloride 120 mmol/L (98-107); Estimated CRCL calculation 36 ml/min; Estimated Glomerular Filt Rate 53; Glucose 122 mg/dL (65-110); Magnesium 1.9 mg/dL (1.6-2.3); Potassium 3.9 mmol/L (3.4-5.0); Sodium 150 mmol/L (137-145); Total Protein 5.3 g/dL (6.3-8.2)
[2024-09-08 05:46] LABS: Band Neutrophils Percent 6 % (0-6); Eosinophils Absolute Manual 0.45 K/mm3 (0.02-0.50); Eosinophils Percent Manual 1 % (0-4); Lymphocytes Absolute Manual 5.44 K/mm3 (1.1-4.5); Lymphocytes Percent Manual 12.0 % (18-44); Metamyelocytes Percent 3 %; Monocytes Absolute Manual 3.63 K/mm3 (0.1-0.90); Monocytes Percent Manual 8 % (3-9); Myelocytes Percent 1 %; Neutrophils Absolute Manual 34.05 K/mm3 (1.3-6.7); Neutrophils Percent Manual 69 % (46-73); Total Cells Counted 100
[2024-09-08 05:47] LABS: Anisocytosis 1+
[2024-09-08 05:48] LABS: Poikilocytosis 1+; Schistocytes Rare
[2024-09-08] MEDS: CENTRAL LINE FLUSH 10 ML IV PUSH ×3 (06:07→20:27)
[2024-09-08] MEDS: ACYCLOVIR 200 MG CAPSULE 400 MG FEED TUBE ×3 (06:08→20:27)
--- NOTE | 2024-09-08 08:28 | P.PNINT_ITS ---
Progress Note: A&P Assessment and Plan (1) Acute respiratory failure: Code(s): J96.00 - Acute respiratory failure, unspecified whether with hypoxia or hypercapnia Status: Acute Assessment and Plan: Acute respiratory failure and sepsis secondary to bilateral Pseudomonas pneumonia in an immunocompromised patient who was on methotrexate and hydroxychloroquine. -ARDS physiology -08/30: Intubated for tachypnea, tachycardia, respiratory distress 08/31: bronchoscopy which did not show any LR hemorrhage or tracheobronchitis 08/31: BAL culture is growing Pseudomonas which is pansensitive. Also Milagros glabrata -08/29: Blood culture negative -08/20: sputum culture negative -09/04: Repeat blood cultures are negative PCR for influenza RSV and COVID was negative Urine Legionella negative and pneumococcal antigen negative Negative Mycoplasma IgM Continue hydrocortisone but will decrease dose as patient was on chronic low- dose prednisone -09/04: Patient placed in prone position due to increased oxygen requirements secondary to ARDS and Pseudomonas pneumonia. Patient was also paralyzed with rocuronium and started on Nimbex infusion for ventilator synchrony 09/05: prone position, ABGs reviewed, ventilator adjusted. Patient will be placed in supine position, off Nimbex infusion 09/06: Patient was placed in supine position yesterday and remains in supine position this morning. Currently on 45% FiO2 and peep of 12 with good O2 sats. I have asked the bedside RN to start weaning sedation, start Precedex infusion if needed 09/06: . Given that patient's WBC count is elevated will switch cefepime to meropenem (09/06). Elevated WBC count could also be related to steroids 09/07: Continue meropenem and Levaquin, WBC count trending down, continue to monitor. Chest x-ray also improving 09/08: WBC count remains elevated, add vancomycin. Weaned PEEP to 8 and FiO2 to 35% 08/29 CT Chest Dense bilateral multifocal infiltrates, predominantly perihilar, as detailed above. No additional source is detected for patient's profound sepsis (2) Gastroesophageal reflux disease: Qualifiers: Esophagitis presence: esophagitis presence not specified Qualified Code(s): K21.9 - Gastro-esophageal reflux disease without esophagitis Code(s): K21.9 - Gastro-esophageal reflux disease without esophagitis Status: Acute Assessment and Plan: PPI q.12 hours (3) FRANK (acute kidney injury): Code(s): N17.9 - Acute kidney failure, unspecified Status: Acute Assessment and Plan: Patient presented with elevated creatinine which was likely secondary to sepsis. Creatinine improved with IV fluids Cut down on further IV fluids and patient was given IV fluids Urine output improved. Creatinine in normal range maintain map above 65 mmHg Monitor urine output electrolytes and creatinine Patient has received Lasix, Bumex, Diuril Obregon catheter for accurate I&Os Increased BUN and hypercalcemia -discussed with Nephrology, meg peralta patient with Diuril -hypercalcemia: Received calcitonin and pamidronate along with diuretics 09/07 -effective pamidronate takes place within 72 hours, so we should anticipate decrease in calcium levels in the next 72 hours (4) Sepsis: Qualifiers: Sepsis acute organ dysfunction status: with acute organ dysfunction Sepsis type: sepsis due to unspecified organism Severe sepsis acute organ dysfunction type: encephalopathy Severe sepsis shock status: without septic shock Qualified Code(s): A41.9 - Sepsis, unspecified organism; R65.20 - Severe sepsis without septic shock; G93.41 - Metabolic encephalopathy Code(s): A41.9 - Sepsis, unspecified organism Status: Acute Assessment and Plan: See above (5) Immunosuppressed status: Code(s): D89.9 - Disorder involving the immune mechanism, unspecified Status: Acute Assessment and Plan: Patient was on steroids and immunosuppressants at home (6) Rheumatoid arthritis: Code(s): M06.9 - Rheumatoid arthritis, unspecified Status: Acute Assessment and Plan: Hold methotrexate and hydroxychloroquine (7) Toxic metabolic encephalopathy: Code(s): G92.8 - Other toxic encephalopathy Status: Acute Assessment and Plan: Patient presented with altered mental status and confusion which appears to be encephalopathy ache. Patient has sepsis and was on several medication including tramadol and benzodiazepine at home Head CT was negative TSH was normal Patient obviously now sedated and intubated. Patient has been on benzodiazepine and pain medications chronically and requiring significant amount of medications to keep her sedated 09/08: Patient in fentanyl, Versed Precedex infusion. Allows the bedside RN to continue to wean sedation to wake up the patient to evaluate neuro status (8) Pneumonia: Qualifiers: Laterality: bilateral Lung location: unspecified part of lung Pneumonia type: due to unspecified organism Qualified Code(s): J18.9 - Pneumonia, unspecified organism Code(s): J18.9 - Pneumonia, unspecified organism Status: Acute Assessment and Plan: See above (9) Urinary tract infection: Qualifiers: Hematuria presence: with hematuria Urinary tract infection type: site unspecified Qualified Code(s): N39.0 - Urinary tract infection, site not specified; R31.9 - Hematuria, unspecified Code(s): N39.0 - Urinary tract infection, site not specified Status: Acute Assessment and Plan: UA suggestive of UTI 08/29: Urine cultures - negative (10) Herpes labialis: Code(s): B00.1 - Herpesviral vesicular dermatitis Status: Acute Assessment and Plan: Continue acyclovir through tube (11) Hypoglycemia: Code(s): E16.2 - Hypoglycemia, unspecified Status: Acute Assessment and Plan: Patient had couple episodes of hypoglycemia early in the course. OFF D10 infusion -blood sugars are stable as patient now on tube feed (12) Ileus: Code(s): K56.7 - Ileus, unspecified Status: Acute Assessment and Plan: Although bowel sounds are present patient has not been tolerating tube feeds with very high residuals. -On Tube feeds 20 mL/hour. Continue reglan, will increase tube feeds gradually to goal (13) Peripheral ischemia: Code(s): I99.8 - Other disorder of circulatory system Status: Acute Assessment and Plan: Patient has developed discoloration/gangrene of all 10 fingers. likely systemic presentation suggest against vascular clot, septic emboli, pseudomonal infection Radial pulses are dopplerable Blood pressure are adequate Monitor maintain mean arterial pressure above 65 mmHg -discoloration on her fingers are improving, also blistering noted on some of the fingers, continue to monitor (14) Swelling of both upper extremities: Code(s): M79.89 - Other specified soft tissue disorders Status: Acute Assessment and Plan: Likely secondary to edema as it is bilateral 09/03: Bilateral upper extremity venous Doppler showed extensive deep and superficial venous thrombosis throughout the bilateral upper extremities -continue therapeutic Lovenox IV q.12 hours (15) Anemia: Qualifiers: Anemia type: unspecified type Qualified Code(s): D64.9 - Anemia, unspecified Code(s): D64.9 - Anemia, unspecified Status: Acute Assessment and Plan: 09/08: Hemoglobin 7.0, will transfuse 1 unit of packed RBC 09/02: Patient also received 1 unit of packed RBCs for hemoglobin of 6.9 Plan DVT prophylaxis -continue therapeutic Lovenox Stress ulcer prophylaxis -Protonix IV q.12 hours Nutrition -tolerating tube feeds, continue Reglan, increase tube feeds to goal Code Status - DNR Total Critical Care Time - 33 minutes Discussed with patient's , Son, [id number]. Updated them with patient's condition, plan of care. It is I updated them with the labs and radiology. They are aware that sedation is being weaned. I answered all the questions. Due to a high probability of clinically significant, life threatening deterioration, the patient required my highest level of preparedness to intervene emergently and I personally spent this critical care time directly and personally managing the patient. This critical care time included obtaining a hi story; examining the patient; pulse oximetry; ordering and review of studies; arranging urgent treatment with development of a management plan; evaluation of patient's response to treatment; frequent reassessment; and discussions with other providers. It was exclusive of separately billable procedures and treating other patients and teaching time. Please see Assessment and Plan section and the rest of the note for further information on patient assessment and treatment Subjective Date/time seen: 09/08/24 08:28 Interval history: 68-year-old with a history of rheumatoid arthritis, Crohn's, on immunosuppressive medications, GERD admitted to ICU for pneumonia and respi ratory failure requiring intubation and mechanical ventilation Reason for consult: Acute respiratory failure, ARDS physiology, sepsis, encephalopathy, pneumonia, herpes labialis, hyperglycemia, ileus, bilateral upper extremity DVTs 09/08/2024: Patient seen and examined the ICU, remains intubated on CMV mode of ventilation, peep of 10, 35% FiO2. In supine position. Sedated with fentanyl, Versed and Precedex infusion. Who does not open her eyes or follow simple commands. Tolerating tube feeds, adequate urine output, afebrile. Dropped her hemoglobin this morning to 7.0 Review of Systems Review of Systems: ROS unobtainable: Yes unobtainable due to endotracheal tube, unobtainable due to medical condition and unobtainable due to mental status Exam Narrative: General: Pt is now sedated, intubated, in Supine position, no acute distress Lungs/Chest: Coarse breath sounds bilaterally, decreased at bases, no wheezing Cardiac: Tachycardia RRR. Normal S1 S2. No murmurs Circulation: Bilateral radial pulses dopplerable and bilateral pedal pulses are palpable, Abdomen: Decreased bowel sounds. Soft. NT. ND. Extremities: Warm, edema of bilateral upper extremities with gauze wrapped ar ound them due to weeping : Obregon in place Neurologic: Pupils equal and reactive, sclera is clear, intubated, sedated, does not open her eyes or follow simple commands. Skin: 08/30 edema with breakdown of the skin which appears to be popped blisters on right labia. She also has several scabbed wounds on her both legs which are in various healing stage but no open or infected wound. All 10 fingers discoloration is improving, blisters on some of the fingers. Fingers are more warm. No discoloration noted on the toes bilaterally, Objective Data Vital Signs Vital Signs: Vital Signs - 24 hr 09/07/24 08:33 09/07/24 08:33 09/07/24 08:38 Temperature Pulse Rate 92 92 93 Respiratory Rate 20 20 22 H Blood Pressure Pulse Oximetry Oxygen Delivery Fraction of Inspired Oxygen 09/07/24 08:38 09/07/24 09:42 09/07/24 10:00 Temperature 99.2 F Pulse Rate 93 109 H 112 H Respiratory Rate 22 H 23 H Blood Pressure 127/67 Pulse Oximetry 99 99 Oxygen Delivery Mechanical Ventilation Fraction of Inspired Oxygen 40 09/07/24 10:00 09/07/24 10:00 09/07/24 10:00 Temperature Pulse Rate 114 H 114 H 114 H Respiratory Rate 26 H 26 H 26 H Blood Pressure Pulse Oximetry Oxygen Delivery Fraction of Inspired Oxygen 09/07/24 10:00 09/07/24 10:24 09/07/24 10:24 Temperature Pulse Rate 114 H 109 H 109 H Respiratory Rate 26 H Blood Pressure Pulse Oximetry Oxygen Delivery Fraction of Inspired Oxygen 09/07/24 10:24 09/07/24 12:00 09/07/24 12:00 Temperature Pulse Rate 109 H 103 H Respiratory Rate 22 H 32 H Blood Pressure Pulse Oximetry Oxygen Delivery Fraction of Inspired Oxygen 40 09/07/24 12:00 09/07/24 12:00 09/07/24 12:00 Temperature Pulse Rate 103 H 103 H 101 H Respiratory Rate 32 H 32 H Blood Pressure Pulse Oximetry Oxygen Delivery Fraction of Inspired Oxygen 09/07/24 12:00 09/07/24 12:00 09/07/24 12:05 Temperature 98.7 F Pulse Rate 102 H 101 H Respiratory Rate 28 H Blood Pressure 134/68 Pulse Oximetry 98 99 Oxygen Delivery Mechanical Ventilation Mechanical Ventilation Fraction of Inspired Oxygen 40 40 09/07/24 12:52 09/07/24 12:53 09/07/24 12:54 Temperature Pulse Rate 106 H 106 H 106 H Respiratory Rate 35 H 35 H 35 H Blood Pressure Pulse Oximetry Oxygen Delivery Fraction of Inspired Oxygen 09/07/24 12:54 09/07/24 13:33 09/07/24 14:00 Temperature Pulse Rate 106 H 91 89 Respiratory Rate 35 H 22 H 22 H Blood Pressure Pulse Oximetry Oxygen Delivery Fraction of Inspired Oxygen 09/07/24 14:00 09/07/24 14:00 09/07/24 14:00 Temperature Pulse Rate 89 89 89 Respiratory Rate 22 H 22 H Blood Pressure Pulse Oximetry Oxygen Delivery Fraction of Inspired Oxygen 09/07/24 14:00 09/07/24 14:32 09/07/24 14:54 Temperature 98.1 F Pulse Rate 102 H 99 97 Respiratory Rate 22 H 22 H Blood Pressure 130/67 Pulse Oximetry 97 96 Oxygen Delivery Mechanical Ventilation Fraction of Inspired Oxygen 40 09/07/24 16:00 09/07/24 16:00 09/07/24 16:00 Temperature Pulse Rate 92 92 92 Respiratory Rate 22 H 22 H 22 H Blood Pressure Pulse Oximetry Oxygen Delivery Fraction of Inspired Oxygen 09/07/24 16:00 09/07/24 16:00 09/07/24 16:00 Temperature Pulse Rate 91 Respiratory Rate Blood Pressure Pulse Oximetry Oxygen Delivery Mechanical Ventilation Fraction of Inspired Oxygen 40 40 09/07/24 16:00 09/07/24 17:26 09/07/24 18:00 Temperature 98.7 F Pulse Rate 86 90 92 Respiratory Rate 22 H Blood Pressure 106/57 L Pulse Oximetry 97 96 Oxygen Delivery Mechanical Ventilation Fraction of Inspired Oxygen 40 09/07/24 18:00 09/07/24 18:00 09/07/24 18:02 Temperature Pulse Rate 92 92 92 Respiratory Rate 22 H 22 H 22 H Blood Pressure 113/58 L Pulse Oximetry 96 Oxygen Delivery Fraction of Inspired Oxygen 09/07/24 18:02 09/07/24 18:28 09/07/24 18:51 Temperature Pulse Rate 92 102 H 102 H Respiratory Rate 22 H 32 H 31 H Blood Pressure Pulse Oximetry Oxygen Delivery Fraction of Inspired Oxygen 09/07/24 18:59 09/07/24 19:38 09/07/24 20:00 Temperature Pulse Rate 110 H 107 H 89 Respiratory Rate 33 H 33 H 22 H Blood Pressure Pulse Oximetry Oxygen Delivery Fraction of Inspired Oxygen 09/07/24 20:00 09/07/24 20:00 09/07/24 20:00 Temperature Pulse Rate 89 89 88 Respiratory Rate 22 H 22 H Blood Pressure Pulse Oximetry Oxygen Delivery Fraction of Inspired Oxygen 09/07/24 20:00 09/07/24 20:00 09/07/24 20:00 Temperature 97.6 F Pulse Rate 89 89 Respiratory Rate 22 H 22 H Blood Pressure 117/64 Pulse Oximetry 96 96 Oxygen Delivery Mechanical Ventilation Fraction of Inspired Oxygen 40 40 09/07/24 20:06 09/07/24 20:46 09/07/24 20:49 Temperature Pulse Rate 89 105 H 102 H Respiratory Rate 22 H Blood Pressure Pulse Oximetry 96 Oxygen Delivery Mechanical Ventilation Fraction of Inspired Oxygen 40 09/07/24 22:00 09/07/24 22:00 09/07/24 22:00 Temperature Pulse Rate 100 100 100 Respiratory Rate 22 H 22 H 22 H Blood Pressure Pulse Oximetry Oxygen Delivery Fraction of Inspired Oxygen 09/07/24 22:00 09/07/24 22:00 09/07/24 22:10 Temperature Pulse Rate 100 100 96 Respiratory Rate 22 H 22 H Blood Pressure 127/65 Pulse Oximetry 96 96 Oxygen Delivery Fraction of Inspired Oxygen 09/07/24 22:15 09/07/24 22:30 09/07/24 22:45 Temperature Pulse Rate 96 93 92 Respiratory Rate 22 H 22 H 22 H Blood Pressure Pulse Oximetry 96 96 96 Oxygen Delivery Fraction of Inspired Oxygen 09/07/24 23:00 09/07/24 23:15 09/07/24 23:30 Temperature Pulse Rate 91 93 98 Respiratory Rate 22 H 22 H 33 H Blood Pressure Pulse Oximetry 96 96 95 Oxygen Delivery Fraction of Inspired Oxygen 09/07/24 23:40 09/07/24 23:42 09/07/24 23:45 Temperature Pulse Rate 100 99 99 Respiratory Rate 25 H 30 H Blood Pressure Pulse Oximetry 96 96 Oxygen Delivery Mechanical Ventilation Fraction of Inspired Oxygen 40 09/08/24 00:00 09/08/24 00:00 09/08/24 00:00 Temperature Pulse Rate 99 99 99 Respiratory Rate 32 H 32 H 32 H Blood Pressure Pulse Oximetry Oxygen Delivery Fraction of Inspired Oxygen 09/08/24 00:00 09/08/24 00:00 09/08/24 00:00 Temperature 97.7 F Pulse Rate 101 H 99 Respiratory Rate 32 H Blood Pressure 162/81 H Pulse Oximetry 96 Oxygen Delivery Fraction of Inspired Oxygen 40 09/08/24 00:00 09/08/24 00:00 09/08/24 00:15 Temperature Pulse Rate 99 99 Respiratory Rate 28 H 30 H Blood Pressure Pulse Oximetry 99 96 96 Oxygen Delivery Mechanical Ventilation Fraction of Inspired Oxygen 40 09/08/24 00:30 09/08/24 00:35 09/08/24 00:36 Temperature Pulse Rate 101 H 102 H 102 H Respiratory Rate 31 H 33 H 33 H Blood Pressure Pulse Oximetry 96 Oxygen Delivery Fraction of Inspired Oxygen 09/08/24 00:45 09/08/24 01:00 09/08/24 02:00 Temperature Pulse Rate 102 H 102 H 91 Respiratory Rate 30 H 26 H Blood Pressure Pulse Oximetry 96 96 Oxygen Delivery Fraction of Inspired Oxygen 09/08/24 02:00 09/08/24 02:00 09/08/24 02:00 Temperature Pulse Rate 91 91 91 Respiratory Rate 22 H 22 H 22 H Blood Pressure 122/61 Pulse Oximetry 96 Oxygen Delivery Fraction of Inspired Oxygen 09/08/24 02:00 09/08/24 02:08 09/08/24 04:00 Temperature Pulse Rate 91 91 Respiratory Rate 22 H Blood Pressure Pulse Oximetry 96 92 Oxygen Delivery Mechanical Ventilation Mechanical Ventilation Fraction of Inspired Oxygen 40 40 09/08/24 04:00 09/08/24 04:00 09/08/24 04:00 Temperature 97.7 F Pulse Rate 91 89 Respiratory Rate 22 H Blood Pressure 114/62 Pulse Oximetry 92 Oxygen Delivery Fraction of Inspired Oxygen 40 09/08/24 04:19 09/08/24 04:19 09/08/24 04:23 Temperature Pulse Rate 88 88 88 Respiratory Rate 22 H 22 H 22 H Blood Pressure Pulse Oximetry Oxygen Delivery Fraction of Inspired Oxygen 09/08/24 04:23 09/08/24 04:25 09/08/24 04:31 Temperature Pulse Rate 88 88 87 Respiratory Rate 22 H 22 H 22 H Blood Pressure Pulse Oximetry Oxygen Delivery Fraction of Inspired Oxygen 09/08/24 04:32 09/08/24 04:51 09/08/24 05:11 Temperature Pulse Rate 87 90 146 H Respiratory Rate 22 H 38 H Blood Pressure Pulse Oximetry 94 Oxygen Delivery Mechanical Ventilation Fraction of Inspired Oxygen 40 09/08/24 06:00 09/08/24 06:00 09/08/24 06:02 Temperature Pulse Rate 141 H 141 H 145 H Respiratory Rate 40 H 39 H Blood Pressure 170/96 H Pulse Oximetry 96 Oxygen Delivery Fraction of Inspired Oxygen 09/08/24 06:03 09/08/24 06:05 09/08/24 06:43 Temperature Pulse Rate 147 H 146 H 104 H Respiratory Rate 45 H 38 H 22 H Blood Pressure Pulse Oximetry Oxygen Delivery Fraction of Inspired Oxygen 09/08/24 07:06 09/08/24 07:07 09/08/24 07:11 Temperature Pulse Rate 97 95 93 Respiratory Rate 22 H 22 H 22 H Blood Pressure Pulse Oximetry Oxygen Delivery Fraction of Inspired Oxygen 09/08/24 07:25 09/08/24 08:00 Temperature 99.2 F Pulse Rate 97 105 H Respiratory Rate 26 H Blood Pressure 126/67 Pulse Oximetry 96 95 Oxygen Delivery Mechanical Ventilation Fraction of Inspired Oxygen Intake/Output Intake/Output: Intake & Output 09/05/24 09/06/24 09/07/24 09/08/24 23:59 23:59 23:59 23:59 Intake Total 2564.0 2195.6 2168.4 1207.3 Output Total 1460 3200 2200 1450 Balance 1104.0 -1004.4 -31.6 -242.7 Meds/Results Medications: Active Medications Generic Name Dose Route Start Last Admin Trade Name Freq PRN Reason Stop Dose Admin Acetaminophen 650 mg 08/29/24 18:17 Acetaminophen 325 Mg Tablet PO Q4H PRN Mild Pain (1-3) or Fever Acetaminophen 650 mg 08/30/24 00:43 08/30/24 06:56 Acetaminophen 650 Mg Suppository RECTAL 650 mg Q6H PRN Administration Mild Pain (1-3) or Fever Acyclovir 400 mg 08/30/24 14:00 09/08/24 06:08 Acyclovir 200 Mg Capsule FEED TUBE 09/09/24 06:01 400 mg Q8HR RHYS Administration Calcitonin Winfred 240 units 09/07/24 10:45 09/07/24 20:49 Calcitonin Winfred Inj 400 Units/2 Ml Vial SUB-Q 09/09/24 21:01 240 units Q12HR RHYS Administration Dextrose 12.5 gm 08/29/24 20:42 08/31/24 20:55 Dextrose 50% 25 Gm/50 Ml Syringe IV PUSH 12.5 gm PRN PRN Administration Hypoglycemia Protocol Enoxaparin Sodium 60 mg 09/03/24 11:35 09/08/24 00:09 Enoxaparin 60 Mg/0.6 Ml Syringe SUB-Q 60 mg Q12H RHYS Administration Glucagon 1 mg 08/29/24 20:42 Glucagon For Inj 1 Mg Vial IM PRN PRN Hypoglycemia Protocol Glucose 15 gm 08/29/24 20:42 Glucose Oral Gel 15 Gm Of Glucse In 37.5 Gm Tube PO PRN PRN Hypoglycemia Protocol Hydrocortisone Sodium Succinate 20 mg 09/03/24 09:00 09/07/24 08:24 Hydrocortisone Sodium Succinate 100 Mg/2 Ml Vial IV PUSH 20 mg QAM RHYS Administration Dextrose 1,000 mls @ 100 mls/hr 08/29/24 20:42 Dextrose 5% 1,000 Ml IVPB PRN PRN Hypoglycemia Protocol Fentanyl Citrate 2,500 mcg in 250 mls @ 5 mls/hr 08/30/24 10:20 09/08/24 07:06 Fentanyl 2,500 Mcg/Ns 250 Ml IV CONT 50 mcg/hr .Q50H RHYS 5 mls/hr Titration Protocol 50 MCG/HR Midazolam HCl 100 mg in 100 mls @ 1 mls/hr 08/30/24 10:20 09/08/24 07:07 Versed 100 Mg/Ns 100 Ml IV CONT 1 mg/hr .Q72H RHYS 1 mls/hr Titration Protocol 1 MG/HR Micafungin Sodium 100 mg/ 100 mls @ 100 mls/hr 09/04/24 10:20 09/07/24 10:22 Sodium Chloride IVPB Infused DAILY RHYS Infusion Levofloxacin/Dextrose 750 mg in 150 mls @ 100 mls/hr 09/05/24 09:00 09/07/24 12:51 Levaquin 750 Mg/D5w 150 Ml IVPB Infused Q48H RHYS Infusion Meropenem 1 gm in 100 mls @ 200 mls/hr 09/06/24 11:00 09/07/24 21:48 IVPB Infused Q12HR RHYS Infusion Dexmedetomidine HCl 400 mcg in 100 mls @ 20.86 mls/hr 09/06/24 14:00 09/08/24 07:11 Precedex 400 Mcg/100 Ml IV CONT 1.4 mcg/kg/hr .Q4H48M RHYS 20.86 mls/hr Titration Protocol 1.4 MCG/KG/HR Sodium Chloride 250 mls @ 30 mls/hr 09/08/24 07:08 Normal Saline Iv IV CONT 09/08/24 15:27 .Q8H20M STA Vancomycin HCl 1,500 mg in 500 mls @ 250 mls/hr 09/08/24 09:00 Vancomycin 1,500 Mg/Ns 500 Ml IVPB 09/08/24 10:59 ONCE ONE Vancomycin HCl 1,250 mg in 250 mls @ 166.667 mls/hr 09/09/24 21:00 Vancomycin 1,250 Mg/Ns 250 Ml IVPB Q36H RHYS Insulin Aspart 3 - 6 units 08/31/24 16:39 09/08/24 06:07 Insulin Aspart (*Bkc) 100 Units/Ml SUB-Q Not Given Q4HR [facility] Protocol Metoclopramide HCl 10 mg 09/01/24 08:00 09/08/24 06:38 Metoclopramide Hcl 10 Mg/10 Ml Soln Udc FEED TUBE 10 mg Q6HR RHYS Administration Metoprolol Tartrate 25 mg 09/06/24 13:55 09/07/24 20:49 Metoprolol Tartrate 25 Mg Tablet PO 25 mg Q12HR RHYS Administration Multi-Ingred Cream/Lotion/Oil/Oint 1 applic 08/30/24 10:20 09/07/24 20:44 Mineral Oil/White Petrolatum Ointment EACH EYE 1 applic Q12HR RHYS Administration Pantoprazole Sodium 40 mg 08/30/24 10:40 09/07/24 20:49 Pantoprazole Sodium Iv 40 Mg Vial IV PUSH 40 mg Q12HR RHYS Administration Prednisolone Acetate 1 drop 08/30/24 21:00 09/07/24 20:38 Prednisolone Acetate 1% Ophth 5 Ml RIGHT EYE 1 drop Q12HR RHYS Administration Sodium Chloride 10 ml 08/30/24 12:17 Central Line Flush IV PUSH PRN PRN with TPN bag changes Sodium Chloride 20 ml 08/30/24 12:17 Central Line Flush IV PUSH PRN PRN after blood draws Sodium Chloride 10 ml 09/04/24 22:00 09/08/24 06:07 Central Line Flush IV PUSH 10 ml Q8HR RHYS Administration Sodium Chloride 20 ml 09/04/24 12:30 Central Line Flush IV PUSH PRN PRN after blood draws Radiology Results: ITS Impressions Head CT 08/29/24 21:55 Impression: No acute intracranial hemorrhage or suspicious mass effect. Chest/Abdomen/Pelvis CT 08/29/24 21:57 IMPRESSION: Dense bilateral multifocal infiltrates, predominantly perihilar, as detailed above. No additional source is detected for patient's profound sepsis. Abdomen X-Ray 08/30/24 11:02 IMPRESSION: Bilateral pneumonia. Differential include pulmonary edema. Venous Doppler Study 09/03/24 10:50 IMPRESSION: 1. Extensive deep and superficial venous thrombosis throughout the bilateral upper lungs as detailed above. Findings were discussed with Jacinto Victor, the nurse caring for the patient, at 10:59 AM. ADDENDUM: 09/03/24 1400 CORRECTION: There is a dictation error in the impression section. With the correction capitalized this should read- Extensive deep and superficial venous thrombosis throughout the bilateral upper LIMBS as detailed above. Chest X-Ray 09/08/24 07:13 IMPRESSION: 1. No significant change in diffuse patchy bilateral lung disease which could represent pneumonia, pulmonary edema, ARDS or some combination thereof. Labs Labs: Laboratory Results - last 24 hr 09/07/24 09/07/24 09/07/24 04:46 11:01 11:32 WBC RBC Hgb Hct MCV MCH MCHC RDW Plt Count MPV Immature Gran % (Auto) Neut % (Auto) Lymph % (Auto) [place] % (Auto) Eos % (Auto) Baso % (Auto) Lymph # (Auto) [place] # (Auto) Eos # (Auto) Baso # (Auto) Abs Immat Gran (auto) Absolute Neuts (auto) Absolute Nucleated RBC Total Counted Neutrophils % (Manual) Band Neutrophils % Lymphocytes % (Manual) Monocytes % (Manual) Eosinophils % (Manual) Metamyelocytes % Myelocytes % Nucleated RBC % Abs Neuts (Manual) Abs Lymphs (Manual) Abs Monocytes (Manual) Absolute Eos (Manual) Platelet Estimate Poikilocytosis Anisocytosis Schistocytes Puncture Site Artline ABG pH ABG pCO2 ABG pO2 ABG PO2/FiO2 Ratio ABG HCO3 ABG O2 Saturation ABG O2 Content ABG Base Excess A-a Gradient Oxyhemoglobin Carboxyhemoglobin Methemoglobin Reduced Hemoglobin Total Hemoglobin O2 Delivery Device O2 Liters/Min Minute Volume Not Reportable Vent Rate 26 Vent Mode Cmv FiO2 Tidal Volume 370 PEEP 12 Peak Inspir Pressure Not Reportable Pressure Support Not Reportable Sodium Potassium Chloride Carbon Dioxide Anion Gap BUN Creatinine Estim Creat Clear Calc Estimated GFR Glucose POC Capillary Glucose 117 H Calcium Phosphorus Magnesium Total Bilirubin AST ALT Alkaline Phosphatase Total Protein Albumin Vitamin D 25-Hydroxy PTH Intact < 14.5 L Crossmatch 09/07/24 09/07/24 09/08/24 16:09 20:11 00:08 WBC RBC Hgb Hct MCV MCH MCHC RDW Plt Count MPV Immature Gran % (Auto) Neut % (Auto) Lymph % (Auto) [place] % (Auto) Eos % (Auto) Baso % (Auto) Lymph # (Auto) [place] # (Auto) Eos # (Auto) Baso # (Auto) Abs Immat Gran (auto) Absolute Neuts (auto) Absolute Nucleated RBC Total Counted Neutrophils % (Manual) Band Neutrophils % Lymphocytes % (Manual) Monocytes % (Manual) Eosinophils % (Manual) Metamyelocytes % Myelocytes % Nucleated RBC % Abs Neuts (Manual) Abs Lymphs (Manual) Abs Monocytes (Manual) Absolute Eos (Manual) Platelet Estimate Poikilocytosis Anisocytosis Schistocytes Puncture Site ABG pH ABG pCO2 ABG pO2 ABG PO2/FiO2 Ratio ABG HCO3 ABG O2 Saturation ABG O2 Content ABG Base Excess A-a Gradient Oxyhemoglobin Carboxyhemoglobin Methemoglobin Reduced Hemoglobin Total Hemoglobin O2 Delivery Device O2 Liters/Min Minute Volume Vent Rate Vent Mode FiO2 Tidal Volume PEEP Peak Inspir Pressure Pressure Support Sodium Potassium Chloride Carbon Dioxide Anion Gap BUN Creatinine Estim Creat Clear Calc Estimated GFR Glucose POC Capillary Glucose 116 H 102 116 H Calcium Phosphorus Magnesium Total Bilirubin AST ALT Alkaline Phosphatase Total Protein Albumin Vitamin D 25-Hydroxy PTH Intact Crossmatch 09/08/24 09/08/24 09/08/24 04:31 04:44 07:17 WBC 45.4 H RBC 2.35 L Hgb 7.0 L Hct 21.8 L MCV 92.8 MCH 29.8 MCHC 32.1 RDW 22.5 H Plt Count 460 H MPV 11.0 H Immature Gran % (Auto) Not Reportable Neut % (Auto) Not Reportable Lymph % (Auto) Not Reportable [place] % (Auto) Not Reportable Eos % (Auto) Not Reportable Baso % (Auto) Not Reportable Lymph # (Auto) Not Reportable [place] # (Auto) Not Reportable Eos # (Auto) Not Reportable Baso # (Auto) Not Reportable Abs Immat Gran (auto) Not Reportable Absolute Neuts (auto) Not Reportable Absolute Nucleated RBC Not Reportable Total Counted 100 Neutrophils % (Manual) 69 Band Neutrophils % 6 Lymphocytes % (Manual) 12.0 L Monocytes % (Manual) 8 Eosinophils % (Manual) 1 Metamyelocytes % 3 Myelocytes % 1 Nucleated RBC % Not Reportable Abs Neuts (Manual) 34.05 H Abs Lymphs (Manual) 5.44 H Abs Monocytes (Manual) 3.63 H Absolute Eos (Manual) 0.45 Platelet Estimate Increased Poikilocytosis 1+ Anisocytosis 1+ Schistocytes Rare Puncture Site Artline ABG pH 7.532 H* ABG pCO2 29.9 L ABG pO2 111.6 H ABG PO2/FiO2 Ratio 2.79 ABG HCO3 24.5 ABG O2 Saturation 98.6 ABG O2 Content 10.0 L ABG Base Excess 1.9 A-a Gradient 139.2 Oxyhemoglobin 96.9 Carboxyhemoglobin 1.3 Methemoglobin 0.3 Reduced Hemoglobin 1.5 Total Hemoglobin 7.2 L* O2 Delivery Device Ventilator O2 Liters/Min Not Reportable Minute Volume Not Reportable Vent Rate 22 Vent Mode Cmv FiO2 40 Tidal Volume 370 PEEP 10 Peak Inspir Pressure Not Reportable Pressure Support Not Reportable Sodium 150 H Potassium 3.9 Chloride 120 H Carbon Dioxide 25 Anion Gap 5 BUN 112 H* Creatinine 1.04 H Estim Creat Clear Calc 36 Estimated GFR 53 L Glucose 122 H POC Capillary Glucose 89 Calcium 11.8 H Phosphorus 2.8 Magnesium 1.9 Total Bilirubin 0.4 AST 73 H ALT 23 Alkaline Phosphatase 119 Total Protein 5.3 L Albumin 2.4 L Vitamin D 25-Hydroxy 34.1 PTH Intact Crossmatch 09/08/24 07:59 WBC RBC Hgb Hct MCV MCH MCHC RDW Plt Count MPV Immature Gran % (Auto) Neut % (Auto) Lymph % (Auto) [place] % (Auto) Eos % (Auto) Baso % (Auto) Lymph # (Auto) [place] # (Auto) Eos # (Auto) Baso # (Auto) Abs Immat Gran (auto) Absolute Neuts (auto) Absolute Nucleated RBC Total Counted Neutrophils % (Manual) Band Neutrophils % Lymphocytes % (Manual) Monocytes % (Manual) Eosinophils % (Manual) Metamyelocytes % Myelocytes % Nucleated RBC % Abs Neuts (Manual) Abs Lymphs (Manual) Abs Monocytes (Manual) Absolute Eos (Manual) Platelet Estimate Poikilocytosis Anisocytosis Schistocytes Puncture Site ABG pH ABG pCO2 ABG pO2 ABG PO2/FiO2 Ratio ABG HCO3 ABG O2 Saturation ABG O2 Content ABG Base Excess A-a Gradient Oxyhemoglobin Carboxyhemoglobin Methemoglobin Reduced Hemoglobin Total Hemoglobin O2 Delivery Device O2 Liters/Min Minute Volume Vent Rate Vent Mode FiO2 Tidal Volume PEEP Peak Inspir Pressure Pressure Support Sodium Potassium Chloride Carbon Dioxide Anion Gap BUN Creatinine Estim Creat Clear Calc Estimated GFR Glucose POC Capillary Glucose Calcium Phosphorus Magnesium Total Bilirubin AST ALT Alkaline Phosphatase Total Protein Albumin Vitamin D 25-Hydroxy PTH Intact Crossmatch See Detail Quality VTE Prophylaxis VTE prophylaxis: pharmacologic ordered
[2024-09-08] MEDS: MEROPENEM 1 GM/NS 100 ML 1 GM/100 ML BAG IVPB ×2 (09:03→21:27)
[2024-09-08] MEDS: HYDROCORTISONE SODIUM SUCCINATE 100 MG/2 ML VIAL 20 MG IV PUSH (09:04)
[2024-09-08] MEDS: PANTOPRAZOLE SODIUM IV 40 MG VIAL IV PUSH ×2 (09:05→20:26)
[2024-09-08] MEDS: VANCOMYCIN 1,500 MG/NS 500 ML 1,500 MG/500 ML BAG 250 MG IVPB (09:05)
[2024-09-08] MEDS: CALCITONIN SALMON INJ 400 UNITS/2 ML VIAL 240 UNITS SUB-Q ×2 (09:09→20:26)
[2024-09-08] MEDS: MINERAL OIL/WHITE PETROLATUM OINTMENT 1 APPLIC EACH EYE ×2 (09:10→22:09)
[2024-09-08] MEDS: MICAFUNGIN SODIUM 100 MG in SODIUM CHLORIDE 0.9% IV 100 ML IVPB (09:10)
[2024-09-08] MEDS: prednisoLONE ACETATE 1% OPHTH 5 ML 1 DROP RIGHT EYE ×2 (09:11→20:28)
[2024-09-08] MEDS: METOPROLOL TARTRATE 25 MG TABLET PO ×2 (10:25→20:26)
[2024-09-08] MEDS: BUMETANIDE INJ 1 MG/4 ML VIAL IV PUSH ×2 (10:25→20:26)
--- NOTE | 2024-09-08 10:54 | PM.PNNEP ---
Progress Note: A&P Assessment and Plan (1) Azotemia: Code(s): R79.89 - Other specified abnormal findings of blood chemistry Status: Acute Assessment and Plan: as note by labs on 09/05 Very high BUN to creatinine ratio. Her baseline creatinine is only 0.5-0.6. She does not eat very much according to her daughter. Muscle mass is probably low. So her GFR is probably overestimated by her serum chemistries. However BUN to creatinine ratio is still substantially high. I think most of this is due to steroids and high catabolic rate as noted below. suspect multifactorial: high catabolic state steroid use infection critical illness previous FRANK/ARF no evidence of GI bleed BUN is slightly lower. Creatinine is also slightly lower. (2) Acute respiratory failure: Code(s): J96.00 - Acute respiratory failure, unspecified whether with hypoxia or hypercapnia Status: Acute Assessment and Plan: secondary to bilateral Pseudomonas pneumonia in an immunocompromised patient who was on methotrexate and hydroxychloroquine. ARDS physiology noted bronchoscopy (08/31) which did not show any LR hemorrhage or tracheobronchitis BAL culture is growing Pseudomonas which is pansensitive. Also Milagros glabrata PCR for influenza RSV and COVID was negative culture data negative to date on stress dose steroids On 40% FiO2, Ve around 7-8 (3) Pneumonia: Qualifiers: Laterality: bilateral Lung location: unspecified part of lung Pneumonia type: due to unspecified organism Qualified Code(s): J18.9 - Pneumonia, unspecified organism Code(s): J18.9 - Pneumonia, unspecified organism Status: Acute Assessment and Plan: as noted by recent imaging On Levaquin, meropenem, and vancomycin (4) Rheumatoid arthritis: Code(s): M06.9 - Rheumatoid arthritis, unspecified Status: Acute Assessment and Plan: holding methotrexate and hydroxychloroquine (5) Toxic metabolic encephalopathy: Code(s): G92.8 - Other toxic encephalopathy Status: Acute Assessment and Plan: presented with altered mental status and confusion Head CT was negative TSH was normal Calcium level is a bit high. Just in case this is contributing to the mental status, she received calcitonin and pamidronate. It is little early but the calcium did drop from 12.3-11.8. With her low albumin, her ionized calcium is still fairly high. reassess when off ventilator (6) Peripheral ischemia: Code(s): I99.8 - Other disorder of circulatory system Status: Acute Assessment and Plan: discoloration/gangrene of all 10 fingers. likely systemic presentation suggest against vascular clot, septic emboli, pseudomonal infection improving, also blistering noted on some of the fingers, continue to monitor (7) Swelling of both upper extremities: Code(s): M79.89 - Other specified soft tissue disorders Status: Acute Assessment and Plan: secondary to edema as it is bilateral however, ultrasound of UEs showed extensive deep and superficial venous thrombosis throughout the bilateral upper extremities on Lovenox (8) Hypoglycemia: Code(s): E16.2 - Hypoglycemia, unspecified Status: Acute Assessment and Plan: noted earlier blood sugars are stable now (9) Hypercalcemia: Code(s): E83.52 - Hypercalcemia Status: Acute Assessment and Plan: Calcium levels very high but better. Calcitonin plus pamidronate on board. Pre renal factors may be playing a role. Will give some IV fluid. bumetanide may help as well. long discussion with Dr Bolton (10) Hypernatremia: Code(s): E87.0 - Hyperosmolality and hypernatremia Status: Acute Assessment and Plan: Sodium level is high. This plus the high calcium make it seem that she has pre renal factors. Will check urine sodium Calcium level has not been high before this admission. Another contributing factor may be immobilization causing resorption from the bone. Is not getting calcium supplements. The patient has some swelling. Dr. Bolton thinks some fluid should be removed. Will treat with bumetanide plus D5W to see if we can get some fluid off but bring the sodium down. Subjective Date/time seen: 09/08/24 10:54 Interval history: Patient is on the ventilator. Sedatives are being weaned the patient seems to be waking up as her eyes are moving about and blood pressure and respiratory rate are both increased. Family in the room we discussed her electrolytes Exam Narrative: General: WD/WN female intubated/sedated and on mechanical ventilation Heart: tachycardic, normal S1 and S2 Lungs: Coarse upper airway noise bilaterally Abdomen: soft, nontender, nondistended, decreased bowel sounds Extremities: Bilateral edema in UEs Skin: scattered healing wounds over LEs; bilateral finger discoloration noted Objective Data Vital Signs Vital Signs: Vital Signs - 24 hr 09/07/24 12:00 09/07/24 12:00 09/07/24 12:00 Temperature Pulse Rate 103 H 103 H Respiratory Rate 32 H 32 H Blood Pressure Pulse Oximetry Oxygen Delivery Fraction of Inspired Oxygen 40 09/07/24 12:00 09/07/24 12:00 09/07/24 12:00 Temperature 98.7 F Pulse Rate 103 H 101 H 102 H Respiratory Rate 32 H 28 H Blood Pressure 134/68 Pulse Oximetry 98 Oxygen Delivery Fraction of Inspired Oxygen 09/07/24 12:00 09/07/24 12:05 09/07/24 12:52 Temperature Pulse Rate 101 H 106 H Respiratory Rate 35 H Blood Pressure Pulse Oximetry 99 Oxygen Delivery Mechanical Ventilation Mechanical Ventilation Fraction of Inspired Oxygen 40 40 09/07/24 12:53 09/07/24 12:54 09/07/24 12:54 Temperature Pulse Rate 106 H 106 H 106 H Respiratory Rate 35 H 35 H 35 H Blood Pressure Pulse Oximetry Oxygen Delivery Fraction of Inspired Oxygen 09/07/24 13:33 09/07/24 14:00 09/07/24 14:00 Temperature Pulse Rate 91 89 89 Respiratory Rate 22 H 22 H 22 H Blood Pressure Pulse Oximetry Oxygen Delivery Fraction of Inspired Oxygen 09/07/24 14:00 09/07/24 14:00 09/07/24 14:00 Temperature 98.1 F Pulse Rate 89 89 102 H Respiratory Rate 22 H 22 H Blood Pressure 130/67 Pulse Oximetry 97 Oxygen Delivery Fraction of Inspired Oxygen 09/07/24 14:32 09/07/24 14:54 09/07/24 16:00 Temperature Pulse Rate 99 97 92 Respiratory Rate 22 H 22 H Blood Pressure Pulse Oximetry 96 Oxygen Delivery Mechanical Ventilation Fraction of Inspired Oxygen 40 09/07/24 16:00 09/07/24 16:00 09/07/24 16:00 Temperature Pulse Rate 92 92 Respiratory Rate 22 H 22 H Blood Pressure Pulse Oximetry Oxygen Delivery Mechanical Ventilation Fraction of Inspired Oxygen 40 09/07/24 16:00 09/07/24 16:00 09/07/24 16:00 Temperature 98.7 F Pulse Rate 91 86 Respiratory Rate 22 H Blood Pressure 106/57 L Pulse Oximetry 97 Oxygen Delivery Fraction of Inspired Oxygen 40 09/07/24 17:26 09/07/24 18:00 09/07/24 18:00 Temperature Pulse Rate 90 92 92 Respiratory Rate 22 H Blood Pressure 113/58 L Pulse Oximetry 96 96 Oxygen Delivery Mechanical Ventilation Fraction of Inspired Oxygen 40 09/07/24 18:00 09/07/24 18:02 09/07/24 18:02 Temperature Pulse Rate 92 92 92 Respiratory Rate 22 H 22 H 22 H Blood Pressure Pulse Oximetry Oxygen Delivery Fraction of Inspired Oxygen 09/07/24 18:28 09/07/24 18:51 09/07/24 18:59 Temperature Pulse Rate 102 H 102 H 110 H Respiratory Rate 32 H 31 H 33 H Blood Pressure Pulse Oximetry Oxygen Delivery Fraction of Inspired Oxygen 09/07/24 19:38 09/07/24 20:00 09/07/24 20:00 Temperature Pulse Rate 107 H 89 89 Respiratory Rate 33 H 22 H 22 H Blood Pressure Pulse Oximetry Oxygen Delivery Fraction of Inspired Oxygen 09/07/24 20:00 09/07/24 20:00 09/07/24 20:00 Temperature Pulse Rate 89 88 Respiratory Rate 22 H Blood Pressure Pulse Oximetry Oxygen Delivery Fraction of Inspired Oxygen 40 09/07/24 20:00 09/07/24 20:00 09/07/24 20:06 Temperature 97.6 F Pulse Rate 89 89 89 Respiratory Rate 22 H 22 H 22 H Blood Pressure 117/64 Pulse Oximetry 96 96 Oxygen Delivery Mechanical Ventilation Fraction of Inspired Oxygen 40 09/07/24 20:46 09/07/24 20:49 09/07/24 22:00 Temperature Pulse Rate 105 H 102 H 100 Respiratory Rate 22 H Blood Pressure Pulse Oximetry 96 Oxygen Delivery Mechanical Ventilation Fraction of Inspired Oxygen 40 09/07/24 22:00 09/07/24 22:00 09/07/24 22:00 Temperature Pulse Rate 100 100 100 Respiratory Rate 22 H 22 H Blood Pressure Pulse Oximetry Oxygen Delivery Fraction of Inspired Oxygen 09/07/24 22:00 09/07/24 22:10 09/07/24 22:15 Temperature Pulse Rate 100 96 96 Respiratory Rate 22 H 22 H 22 H Blood Pressure 127/65 Pulse Oximetry 96 96 96 Oxygen Delivery Fraction of Inspired Oxygen 09/07/24 22:30 09/07/24 22:45 09/07/24 23:00 Temperature Pulse Rate 93 92 91 Respiratory Rate 22 H 22 H 22 H Blood Pressure Pulse Oximetry 96 96 96 Oxygen Delivery Fraction of Inspired Oxygen 09/07/24 23:15 09/07/24 23:30 09/07/24 23:40 Temperature Pulse Rate 93 98 100 Respiratory Rate 22 H 33 H 25 H Blood Pressure Pulse Oximetry 96 95 Oxygen Delivery Fraction of Inspired Oxygen 09/07/24 23:42 09/07/24 23:45 09/08/24 00:00 Temperature Pulse Rate 99 99 99 Respiratory Rate 30 H 32 H Blood Pressure Pulse Oximetry 96 96 Oxygen Delivery Mechanical Ventilation Fraction of Inspired Oxygen 40 09/08/24 00:00 09/08/24 00:00 09/08/24 00:00 Temperature Pulse Rate 99 99 101 H Respiratory Rate 32 H 32 H Blood Pressure Pulse Oximetry Oxygen Delivery Fraction of Inspired Oxygen 09/08/24 00:00 09/08/24 00:00 09/08/24 00:00 Temperature 97.7 F Pulse Rate 99 Respiratory Rate 32 H Blood Pressure 162/81 H Pulse Oximetry 96 99 Oxygen Delivery Mechanical Ventilation Fraction of Inspired Oxygen 40 40 09/08/24 00:00 09/08/24 00:15 09/08/24 00:30 Temperature Pulse Rate 99 99 101 H Respiratory Rate 28 H 30 H 31 H Blood Pressure Pulse Oximetry 96 96 96 Oxygen Delivery Fraction of Inspired Oxygen 09/08/24 00:35 09/08/24 00:36 09/08/24 00:45 Temperature Pulse Rate 102 H 102 H 102 H Respiratory Rate 33 H 33 H 30 H Blood Pressure Pulse Oximetry 96 Oxygen Delivery Fraction of Inspired Oxygen 09/08/24 01:00 09/08/24 02:00 09/08/24 02:00 Temperature Pulse Rate 102 H 91 91 Respiratory Rate 26 H 22 H Blood Pressure 122/61 Pulse Oximetry 96 96 Oxygen Delivery Fraction of Inspired Oxygen 09/08/24 02:00 09/08/24 02:00 09/08/24 02:00 Temperature Pulse Rate 91 91 91 Respiratory Rate 22 H 22 H 22 H Blood Pressure Pulse Oximetry Oxygen Delivery Fraction of Inspired Oxygen 09/08/24 02:08 09/08/24 04:00 09/08/24 04:00 Temperature Pulse Rate 91 91 Respiratory Rate Blood Pressure Pulse Oximetry 96 92 Oxygen Delivery Mechanical Ventilation Mechanical Ventilation Fraction of Inspired Oxygen 40 40 09/08/24 04:00 09/08/24 04:00 09/08/24 04:19 Temperature 97.7 F Pulse Rate 89 88 Respiratory Rate 22 H 22 H Blood Pressure 114/62 Pulse Oximetry 92 Oxygen Delivery Fraction of Inspired Oxygen 40 09/08/24 04:19 09/08/24 04:23 09/08/24 04:23 Temperature Pulse Rate 88 88 88 Respiratory Rate 22 H 22 H 22 H Blood Pressure Pulse Oximetry Oxygen Delivery Fraction of Inspired Oxygen 09/08/24 04:25 09/08/24 04:31 09/08/24 04:32 Temperature Pulse Rate 88 87 87 Respiratory Rate 22 H 22 H 22 H Blood Pressure Pulse Oximetry Oxygen Delivery Fraction of Inspired Oxygen 09/08/24 04:51 09/08/24 05:11 09/08/24 06:00 Temperature Pulse Rate 90 146 H 141 H Respiratory Rate 38 H Blood Pressure Pulse Oximetry 94 Oxygen Delivery Mechanical Ventilation Fraction of Inspired Oxygen 40 09/08/24 06:00 09/08/24 06:02 09/08/24 06:03 Temperature Pulse Rate 141 H 145 H 147 H Respiratory Rate 40 H 39 H 45 H Blood Pressure 170/96 H Pulse Oximetry 96 Oxygen Delivery Fraction of Inspired Oxygen 09/08/24 06:05 09/08/24 06:43 09/08/24 07:06 Temperature Pulse Rate 146 H 104 H 97 Respiratory Rate 38 H 22 H 22 H Blood Pressure Pulse Oximetry Oxygen Delivery Fraction of Inspired Oxygen 09/08/24 07:07 09/08/24 07:11 09/08/24 07:25 Temperature Pulse Rate 95 93 97 Respiratory Rate 22 H 22 H Blood Pressure Pulse Oximetry 96 Oxygen Delivery Mechanical Ventilation Fraction of Inspired Oxygen 09/08/24 07:30 09/08/24 08:00 09/08/24 08:00 Temperature 99.2 F Pulse Rate 93 105 H 100 Respiratory Rate 22 H 26 H Blood Pressure 126/67 Pulse Oximetry 95 Oxygen Delivery Fraction of Inspired Oxygen 09/08/24 08:00 09/08/24 08:00 09/08/24 08:30 Temperature Pulse Rate 100 100 111 H Respiratory Rate 22 H 22 H 26 H Blood Pressure Pulse Oximetry Oxygen Delivery Fraction of Inspired Oxygen 09/08/24 09:00 09/08/24 10:00 09/08/24 10:00 Temperature 99.9 F H Pulse Rate 127 H 137 H 146 H Respiratory Rate 26 H 35 H 26 H Blood Pressure 188/101 H Pulse Oximetry 97 Oxygen Delivery Fraction of Inspired Oxygen 09/08/24 10:00 09/08/24 10:00 09/08/24 10:25 Temperature Pulse Rate 146 H 146 H 146 H Respiratory Rate 26 H 26 H Blood Pressure Pulse Oximetry Oxygen Delivery Fraction of Inspired Oxygen 09/08/24 10:31 09/08/24 10:37 09/08/24 10:37 Temperature Pulse Rate 144 H 146 H 146 H Respiratory Rate 26 H 26 H Blood Pressure Pulse Oximetry 98 Oxygen Delivery Mechanical Ventilation Fraction of Inspired Oxygen Intake/Output Intake/Output: Intake & Output 09/05/24 09/06/24 09/07/24 09/08/24 23:59 23:59 23:59 23:59 Intake Total 2564.0 2195.6 2168.4 1390.0 Output Total 1460 3200 2200 1850 Balance 1104.0 -1004.4 -31.6 -460.0 Meds/Results Medications: Active Medications Generic Name Dose Route Start Last Admin Trade Name Freq PRN Reason Stop Dose Admin Acetaminophen 650 mg 08/29/24 18:17 Acetaminophen 325 Mg Tablet PO Q4H PRN Mild Pain (1-3) or Fever Acetaminophen 650 mg 08/30/24 00:43 08/30/24 06:56 Acetaminophen 650 Mg Suppository RECTAL 650 mg Q6H PRN Administration Mild Pain (1-3) or Fever Acyclovir 400 mg 08/30/24 14:00 09/08/24 06:08 Acyclovir 200 Mg Capsule FEED TUBE 09/09/24 06:01 400 mg Q8HR [facility] Administration Bumetanide 1 mg 09/08/24 09:00 09/08/24 10:25 Bumetanide Inj 1 Mg/4 Ml Vial IV PUSH 1 mg Q12H [facility]YS Administration Calcitonin [place] 240 units 09/07/24 10:45 09/08/24 09:09 Calcitonin [place] Inj 400 Units/2 Ml Vial SUB-Q 09/09/24 21:01 240 units Q12HR [facility] Administration Dextrose 12.5 gm 08/29/24 20:42 08/31/24 20:55 Dextrose 50% 25 Gm/50 Ml Syringe IV PUSH 12.5 gm PRN PRN Administration Hypoglycemia Protocol Enoxaparin Sodium 60 mg 09/03/24 11:35 09/08/24 10:38 Enoxaparin 60 Mg/0.6 Ml Syringe SUB-Q 60 mg Q12H [facility] Administration Glucagon 1 mg 08/29/24 20:42 Glucagon For Inj 1 Mg Vial IM PRN PRN Hypoglycemia Protocol Glucose 15 gm 08/29/24 20:42 Glucose Oral Gel 15 Gm Of Glucse In 37.5 Gm Tube PO PRN PRN Hypoglycemia Protocol Hydrocortisone Sodium Succinate 20 mg 09/03/24 09:00 09/08/24 09:04 Hydrocortisone Sodium Succinate 100 Mg/2 Ml Vial IV PUSH 20 mg QAM [facility] Administration Dextrose 1,000 mls @ 100 mls/hr 08/29/24 20:42 Dextrose 5% 1,000 Ml IVPB PRN PRN Hypoglycemia Protocol Fentanyl Citrate 2,500 mcg in 250 mls @ 0 mls/hr 08/30/24 10:20 09/08/24 10:00 Fentanyl 2,500 Mcg/Ns 250 Ml IV CONT 0 mcg/hr .Q0M RHYS 0 mls/hr Titration Protocol 0 MCG/HR Midazolam HCl 100 mg in 100 mls @ 0 mls/hr 08/30/24 10:20 09/08/24 10:00 Versed 100 Mg/Ns 100 Ml IV CONT 0 mg/hr .Q0M RHYS 0 mls/hr Titration Protocol 0 MG/HR Micafungin Sodium 100 mg/ 100 mls @ 100 mls/hr 09/04/24 10:20 09/08/24 09:10 Sodium Chloride IVPB 100 mls/hr DAILY [facility] Administration Levofloxacin/Dextrose 750 mg in 150 mls @ 100 mls/hr 09/05/24 09:00 09/07/24 12:51 Levaquin 750 Mg/D5w 150 Ml IVPB Infused Q48H [facility] Infusion Meropenem 1 gm in 100 mls @ 200 mls/hr 09/06/24 11:00 09/08/24 09:33 IVPB Infused Q12HR [facility] Infusion Dexmedetomidine HCl 400 mcg in 100 mls @ 22.35 mls/hr 09/06/24 14:00 09/08/24 10:37 Precedex 400 Mcg/100 Ml IV CONT 1.5 mcg/kg/hr .Q4H29M [facility]YS 22.35 mls/hr Administration Protocol 1.5 MCG/KG/HR Sodium Chloride 250 mls @ 30 mls/hr 09/08/24 07:08 Normal Saline Iv IV CONT 09/08/24 15:27 .Q8H20M STA Vancomycin HCl 1,500 mg in 500 mls @ 250 mls/hr 09/08/24 09:00 09/08/24 09:05 Vancomycin 1,500 Mg/Ns 500 Ml IVPB 09/08/24 10:59 250 mls/hr ONCE ONE Administration Vancomycin HCl 1,250 mg in 250 mls @ 166.667 mls/hr 09/09/24 21:00 Vancomycin 1,250 Mg/Ns 250 Ml IVPB Q36H [facility] Dextrose 1,000 mls @ 100 mls/hr 09/08/24 09:35 Dextrose 5% 1,000 Ml IV CONT .Q10H [facility] Insulin Aspart 3 - 6 units 08/31/24 16:39 09/08/24 08:50 Insulin Aspart (*Bkc) 100 Units/Ml SUB-Q Not Given Q4HR [facility] Protocol Metoclopramide HCl 10 mg 09/01/24 08:00 09/08/24 06:38 Metoclopramide Hcl 10 Mg/10 Ml Soln Udc FEED TUBE 10 mg Q6HR [facility] Administration Metoprolol Tartrate 25 mg 09/06/24 13:55 09/08/24 10:25 Metoprolol Tartrate 25 Mg Tablet PO 25 mg Q12HR [facility] Administration Metoprolol Tartrate 5 mg 09/08/24 10:30 Metoprolol Tartrate Inj 5 Mg/5 Ml Vial IV PUSH Q6H [facility] Miscellaneous Information 1 each 09/08/24 00:01 Metoprolol Iv And Po Ordered D/C One? XX 10/08/24 00:00 CLARIFY [facility] Multi-Ingred Cream/Lotion/Oil/Oint 1 applic 08/30/24 10:20 09/08/24 09:10 Mineral Oil/White Petrolatum Ointment EACH EYE 1 applic Q12HR [facility] Administration Pantoprazole Sodium 40 mg 08/30/24 10:40 09/08/24 09:05 Pantoprazole Sodium Iv 40 Mg Vial IV PUSH 40 mg Q12HR [facility] Administration Prednisolone Acetate 1 drop 08/30/24 21:00 09/08/24 09:11 Prednisolone Acetate 1% Ophth 5 Ml RIGHT EYE 1 drop Q12HR [facility] Administration Sodium Chloride 10 ml 08/30/24 12:17 Central Line Flush IV PUSH PRN PRN with TPN bag changes Sodium Chloride 20 ml 08/30/24 12:17 Central Line Flush IV PUSH PRN PRN after blood draws Sodium Chloride 10 ml 09/04/24 22:00 09/08/24 06:07 Central Line Flush IV PUSH 10 ml Q8HR [facility] Administration Sodium Chloride 20 ml 09/04/24 12:30 Central Line Flush IV PUSH PRN PRN after blood draws Radiology Results: ITS Impressions Head CT 08/29/24 21:55 Impression: No acute intracranial hemorrhage or suspicious mass effect. Chest/Abdomen/Pelvis CT 08/29/24 21:57 IMPRESSION: Dense bilateral multifocal infiltrates, predominantly perihilar, as detailed above. No additional source is detected for patient's profound sepsis. Abdomen X-Ray 08/30/24 11:02 IMPRESSION: Bilateral pneumonia. Differential include pulmonary edema. Venous Doppler Study 09/03/24 10:50 IMPRESSION: 1. Extensive deep and superficial venous thrombosis throughout the bilateral upper lungs as detailed above. Findings were discussed with Jacinto Victor, the nurse caring for the patient, at 10:59 AM. ADDENDUM: 09/03/24 1400 CORRECTION: There is a dictation error in the impression section. With the correction capitalized this should read- Extensive deep and superficial venous thrombosis throughout the bilateral upper LIMBS as detailed above. Chest X-Ray 09/08/24 07:13 IMPRESSION: 1. No significant change in diffuse patchy bilateral lung disease which could represent pneumonia, pulmonary edema, ARDS or some combination thereof. Labs Labs: Laboratory Results - last 24 hr 09/07/24 09/07/24 09/07/24 11:01 11:32 16:09 WBC RBC Hgb Hct MCV MCH MCHC RDW Plt Count MPV Immature Gran % (Auto) Neut % (Auto) Lymph % (Auto) [place] % (Auto) Eos % (Auto) Baso % (Auto) Lymph # (Auto) [place] # (Auto) Eos # (Auto) Baso # (Auto) Abs Immat Gran (auto) Absolute Neuts (auto) Absolute Nucleated RBC Total Counted Neutrophils % (Manual) Band Neutrophils % Lymphocytes % (Manual) Monocytes % (Manual) Eosinophils % (Manual) Metamyelocytes % Myelocytes % Nucleated RBC % Abs Neuts (Manual) Abs Lymphs (Manual) Abs Monocytes (Manual) Absolute Eos (Manual) Platelet Estimate Poikilocytosis Anisocytosis Schistocytes Puncture Site ABG pH ABG pCO2 ABG pO2 ABG PO2/FiO2 Ratio ABG HCO3 ABG O2 Saturation ABG O2 Content ABG Base Excess A-a Gradient Oxyhemoglobin Carboxyhemoglobin Methemoglobin Reduced Hemoglobin Total Hemoglobin O2 Delivery Device O2 Liters/Min Minute Volume Vent Rate Vent Mode FiO2 Tidal Volume PEEP Peak Inspir Pressure Pressure Support Sodium Potassium Chloride Carbon Dioxide Anion Gap BUN Creatinine Estim Creat Clear Calc Estimated GFR Glucose POC Capillary Glucose 117 H 116 H Calcium Phosphorus Magnesium Total Bilirubin AST ALT Alkaline Phosphatase Total Protein Albumin Vitamin D 25-Hydroxy PTH Intact < 14.5 L Blood Type Antibody Screen Crossmatch 09/07/24 09/08/24 09/08/24 20:11 00:08 04:31 WBC RBC Hgb Hct MCV MCH MCHC RDW Plt Count MPV Immature Gran % (Auto) Neut % (Auto) Lymph % (Auto) [place] % (Auto) Eos % (Auto) Baso % (Auto) Lymph # (Auto) [place] # (Auto) Eos # (Auto) Baso # (Auto) Abs Immat Gran (auto) Absolute Neuts (auto) Absolute Nucleated RBC Total Counted Neutrophils % (Manual) Band Neutrophils % Lymphocytes % (Manual) Monocytes % (Manual) Eosinophils % (Manual) Metamyelocytes % Myelocytes % Nucleated RBC % Abs Neuts (Manual) Abs Lymphs (Manual) Abs Monocytes (Manual) Absolute Eos (Manual) Platelet Estimate Poikilocytosis Anisocytosis Schistocytes Puncture Site Artline ABG pH 7.532 H* ABG pCO2 29.9 L ABG pO2 111.6 H ABG PO2/FiO2 Ratio 2.79 ABG HCO3 24.5 ABG O2 Saturation 98.6 ABG O2 Content 10.0 L ABG Base Excess 1.9 A-a Gradient 139.2 Oxyhemoglobin 96.9 Carboxyhemoglobin 1.3 Methemoglobin 0.3 Reduced Hemoglobin 1.5 Total Hemoglobin 7.2 L* O2 Delivery Device Ventilator O2 Liters/Min Not Reportable Minute Volume Not Reportable Vent Rate 22 Vent Mode Cmv FiO2 40 Tidal Volume 370 PEEP 10 Peak Inspir Pressure Not Reportable Pressure Support Not Reportable Sodium Potassium Chloride Carbon Dioxide Anion Gap BUN Creatinine Estim Creat Clear Calc Estimated GFR Glucose POC Capillary Glucose 102 116 H Calcium Phosphorus Magnesium Total Bilirubin AST ALT Alkaline Phosphatase Total Protein Albumin Vitamin D 25-Hydroxy PTH Intact Blood Type Antibody Screen Crossmatch 09/08/24 09/08/24 09/08/24 04:44 07:17 07:59 WBC 45.4 H RBC 2.35 L Hgb 7.0 L Hct 21.8 L MCV 92.8 MCH 29.8 MCHC 32.1 RDW 22.5 H Plt Count 460 H MPV 11.0 H Immature Gran % (Auto) Not Reportable Neut % (Auto) Not Reportable Lymph % (Auto) Not Reportable [place] % (Auto) Not Reportable Eos % (Auto) Not Reportable Baso % (Auto) Not Reportable Lymph # (Auto) Not Reportable [place] # (Auto) Not Reportable Eos # (Auto) Not Reportable Baso # (Auto) Not Reportable Abs Immat Gran (auto) Not Reportable Absolute Neuts (auto) Not Reportable Absolute Nucleated RBC Not Reportable Total Counted 100 Neutrophils % (Manual) 69 Band Neutrophils % 6 Lymphocytes % (Manual) 12.0 L Monocytes % (Manual) 8 Eosinophils % (Manual) 1 Metamyelocytes % 3 Myelocytes % 1 Nucleated RBC % Not Reportable Abs Neuts (Manual) 34.05 H Abs Lymphs (Manual) 5.44 H Abs Monocytes (Manual) 3.63 H Absolute Eos (Manual) 0.45 Platelet Estimate Increased Poikilocytosis 1+ Anisocytosis 1+ Schistocytes Rare Puncture Site ABG pH ABG pCO2 ABG pO2 ABG PO2/FiO2 Ratio ABG HCO3 ABG O2 Saturation ABG O2 Content ABG Base Excess A-a Gradient Oxyhemoglobin Carboxyhemoglobin Methemoglobin Reduced Hemoglobin Total Hemoglobin O2 Delivery Device O2 Liters/Min Minute Volume Vent Rate Vent Mode FiO2 Tidal Volume PEEP Peak Inspir Pressure Pressure Support Sodium 150 H Potassium 3.9 Chloride 120 H Carbon Dioxide 25 Anion Gap 5 BUN 112 H* Creatinine 1.04 H Estim Creat Clear Calc 36 Estimated GFR 53 L Glucose 122 H POC Capillary Glucose 89 Calcium 11.8 H Phosphorus 2.8 Magnesium 1.9 Total Bilirubin 0.4 AST 73 H ALT 23 Alkaline Phosphatase 119 Total Protein 5.3 L Albumin 2.4 L Vitamin D 25-Hydroxy 34.1 PTH Intact Blood Type O Positive Antibody Screen Negative Crossmatch See Detail
[2024-09-08] MEDS: SODIUM CHLORIDE 0.9% IV 250 ML 30 ML IV CONT (11:03)
[2024-09-08] MEDS: METOPROLOL TARTRATE INJ 5 MG/5 ML VIAL IV PUSH ×2 (11:04→19:52)
[2024-09-08] MEDS: DEXTROSE 5% 1,000 ML 1,000 ML 100 ML IV CONT ×2 (11:26→21:33)
[2024-09-08 11:53] LABS: MRSA (PCR) NOT DETECTED (NOT DETECTE)
[2024-09-08 13:12] LABS: Total Protein Urine Random 26 mg/dL; Ur Ttl Prot Creatinine Ratio 3.38 mg/mg (0-0.20); Urea Random Urine 393 MG/DL
[2024-09-08 13:51] LABS: Hematocrit 27.3 % (37.0-47.0); Hemoglobin 8.8 g/dL (12.0-15.0); Mean Corpuscular HGB Conc 32.2 g/dl (32-36); Mean Corpuscular Hemoglobin 29.7 pg (26-34); Mean Corpuscular Volume 92.2 fl (80-100); Platelet Count Result 491 k/mm3 (150-375); Red Blood Count 2.96 M/mm3 (4.2-5.4); White Blood Count 47.8 K/mm3 (4.5-10.0)
[2024-09-09] VITALS (36 sets, daily range): BP systolic 119–158; BP diastolic 64–87; PULSE 96–145; RESP 23–43; TEMP 36.6–37.7; O2SAT 95–100
[2024-09-09] MEDS: METOCLOPRAMIDE HCL 10 MG/10 ML SOLN UDC FEED TUBE ×4 (00:22→17:49)
[2024-09-09] MEDS: ENOXAPARIN 60 MG/0.6 ML SYRINGE SUB-Q ×2 (00:23→10:42)
[2024-09-09] MEDS: dexmedeTOMIDine 400 MCG/100 ML 400 MCG/100 ML BAG 22.35 MCG IV CONT (03:55)
[2024-09-09] MEDS: CENTRAL LINE FLUSH 10 ML IV PUSH ×3 (04:45→20:57)
[2024-09-09] MEDS: CENTRAL LINE FLUSH 20 ML IV PUSH (04:45)
[2024-09-09 04:46] LABS: Alveolar/Arterial O2 Gradient 115.4 mmHg; Carboxyhemoglobin 0.9 % THb (0-2.0); Fractional Inspired Oxygen 35 %; HCO3 ABG 20.9 mEq/l (22.0-26.0); Methemoglobin ABG 0.3 %THb (0-1.5); Oxygen Content ABG 15.7 %vol (16.0-22.0); Oxygen Saturation ABG 98.6 % (95.0-100.0); PO2 ABG 107.4 mmHg (80.0-100.0); PO2 FiO2 Ratio Arterial Blood 3.07 %; Reduced Hemoglobin 1.9 %THb (0-5.0)
[2024-09-09 04:55] LABS: Hematocrit 25.1 % (37.0-47.0); Hemoglobin 8.2 g/dL (12.0-15.0); Mean Corpuscular HGB Conc 32.7 g/dl (32-36); Mean Corpuscular Hemoglobin 29.7 pg (26-34); Mean Corpuscular Volume 90.9 fl (80-100); Platelet Count Result 448 k/mm3 (150-375); Red Blood Count 2.76 M/mm3 (4.2-5.4); White Blood Count 43.6 K/mm3 (4.5-10.0)
[2024-09-09 05:02] LABS: Arterial Blood Gas Ventilator rate 18 /MIN; PCO2 ABG 23.0 mmHg (35.0-45.0); Site Drawn ARTLINE
[2024-09-09 05:03] LABS: Arterial Blood Gas Tidal Volume 370 ml
[2024-09-09 05:09] LABS: Alanine Aminotransferase 30 U/L (6-35); Albumin Level 2.4 g/dL (3.5-5.1); Alkaline Phosphatase 116 U/L (38-126); Anion Gap 5 mmol/L (4-12); Aspartate Amino Transferase 85 U/L (14-36); Bilirubin,Total 0.4 mg/dL (0.2-1.3); Blood Urea Nitrogen 100 mg/dL (7-17); Calcium 10.9 mg/dL (8.4-10.2); Carbon Dioxide 26 mmol/L (22-30); Chloride 115 mmol/L (98-107); Estimated CRCL calculation 41 ml/min; Estimated Glomerular Filt Rate > 60; Glucose 123 mg/dL (65-110); Magnesium 1.5 mg/dL (1.6-2.3); Potassium 2.7 mmol/L (3.4-5.0); Sodium 146 mmol/L (137-145); Total Protein 5.4 g/dL (6.3-8.2)
[2024-09-09] MEDS: ACYCLOVIR 200 MG CAPSULE 400 MG FEED TUBE (05:33)
[2024-09-09] MEDS: POTASSIUM CHLORIDE 20 MEQ PACKET (FOR LIQUID) 40 MEQ FEED TUBE (05:33)
[2024-09-09] MEDS: MAGNESIUM SULF 2 GM/WATER 50ML 2 GM/50 ML BAG IVPB ×2 (05:40→08:32)
[2024-09-09] MEDS: KCL 40 MEQ/WATER 100 ML 100 ML 25 ML IVPB (05:43)
[2024-09-09 05:48] LABS: Band Neutrophils Percent 5 % (0-6); Lymphocytes Absolute Manual 6.54 K/mm3 (1.1-4.5); Lymphocytes Percent Manual 15.0 % (18-44); Metamyelocytes Percent 4 %; Monocytes Absolute Manual 4.79 K/mm3 (0.1-0.90); Monocytes Percent Manual 11 % (3-9); Neutrophils Absolute Manual 30.52 K/mm3 (1.3-6.7); Neutrophils Percent Manual 65 % (46-73); Total Cells Counted 100
[2024-09-09 05:49] LABS: Anisocytosis 1+; Poikilocytosis 1+; Schistocytes None Seen
[2024-09-09] MEDS: dexmedeTOMIDine 400 MCG/100 ML 400 MCG/100 ML BAG 14.9 MCG IV CONT (08:00)
[2024-09-09] MEDS: PANTOPRAZOLE SODIUM IV 40 MG VIAL IV PUSH ×2 (08:32→20:57)
[2024-09-09] MEDS: DEXTROSE 5% 1,000 ML 1,000 ML 100 ML IV CONT ×2 (08:32→21:34)
[2024-09-09] MEDS: BUMETANIDE INJ 1 MG/4 ML VIAL IV PUSH ×2 (08:33→20:57)
[2024-09-09] MEDS: levoFLOXacin 750 MG/D5W 150 ML 750 MG/150 ML BAG 100 MG IVPB (08:33)
[2024-09-09] MEDS: POTASSIUM CHLORIDE 20 MEQ PACKET (FOR LIQUID) 40 MEQ PO (08:33)
[2024-09-09] MEDS: METOPROLOL TARTRATE 25 MG TABLET PO ×2 (08:34→20:57)
[2024-09-09] MEDS: HYDROCORTISONE SODIUM SUCCINATE 100 MG/2 ML VIAL 20 MG IV PUSH (08:34)
[2024-09-09] MEDS: prednisoLONE ACETATE 1% OPHTH 5 ML 1 DROP RIGHT EYE ×2 (08:35→20:56)
[2024-09-09] MEDS: MINERAL OIL/WHITE PETROLATUM OINTMENT 1 APPLIC EACH EYE ×2 (08:35→20:56)
[2024-09-09] MEDS: MICAFUNGIN SODIUM 100 MG in SODIUM CHLORIDE 0.9% IV 100 ML IVPB (08:35)
[2024-09-09] MEDS: CALCITONIN SALMON INJ 400 UNITS/2 ML VIAL 240 UNITS SUB-Q ×2 (08:43→20:58)
--- NOTE | 2024-09-09 08:59 | P.PNNP_ITS ---
Progress Note: A&P Assessment and Plan (1) Azotemia: Code(s): R79.89 - Other specified abnormal findings of blood chemistry Status: Acute Assessment and Plan: * as note by labs on 09/05 * Very high BUN to creatinine ratio. * Her baseline creatinine is only 0.5-0.6. She does not eat very much according to her daughter. Muscle mass is probably low. So her GFR is probably overestimated by her serum chemistries. However BUN to creatinine ratio is still substantially high. I think most of this is due to steroids and high catabolic rate as noted below. * suspect multifactorial: * high catabolic state * steroid use * infection * critical illness * previous FRANK/ARF * no evidence of GI bleed * BUN is slightly lower. Creatinine is also lower. * fractional excretion of urea and urine electrolyte are non pre * Getting some IV fluid, D5W mostly to help the sodium but it may also be helping the BUN /creat * check more labs tomorrow (2) Acute respiratory failure: Code(s): J96.00 - Acute respiratory failure, unspecified whether with hypoxia or hypercapnia Status: Acute Assessment and Plan: * secondary to bilateral Pseudomonas pneumonia in an immunocompromised patient who was on methotrexate and hydroxychloroquine. * ARDS physiology noted * bronchoscopy (08/31) which did not show any LR hemorrhage or tracheobronchitis * BAL culture is growing Pseudomonas which is pansensitive. Also Milagros glabrata * PCR for influenza RSV and COVID was negative * culture data negative to date * on stress dose steroids * On 35% FiO2, Ve around 6-7 (3) Pneumonia: Qualifiers: Laterality: bilateral Lung location: unspecified part of lung Pneumonia type: due to unspecified organism Qualified Code(s): J18.9 - Pneumonia, unspecified organism Code(s): J18.9 - Pneumonia, unspecified organism Status: Acute Assessment and Plan: * as noted by recent imaging * On Levaquin, meropenem, and vancomycin (4) Rheumatoid arthritis: Code(s): M06.9 - Rheumatoid arthritis, unspecified Status: Acute Assessment and Plan: * holding methotrexate and hydroxychloroquine (5) Toxic metabolic encephalopathy: Code(s): G92.8 - Other toxic encephalopathy Status: Acute Assessment and Plan: * presented with altered mental status and confusion * Head CT was negative * TSH was normal * Calcium level is a bit high. Just in case this is contributing to the mental status, she received calcitonin and pamidronate. It is little early but the calcium has improved and is now down to 10.9. With her low albumin, her ionized calcium is still fairly high. * reassess when off ventilator (6) Peripheral ischemia: Code(s): I99.8 - Other disorder of circulatory system Status: Acute Assessment and Plan: * discoloration/gangrene of all 10 fingers. * likely systemic presentation suggest against vascular clot, septic emboli, pseudomonal infection * improving, also blistering noted on some of the fingers, continue to monitor (7) Swelling of both upper extremities: Code(s): M79.89 - Other specified soft tissue disorders Status: Acute Assessment and Plan: * secondary to edema as it is bilateral * however, ultrasound of UEs showed extensive deep and superficial venous thromb osis throughout the bilateral upper extremities * on Lovenox (8) Hypoglycemia: Code(s): E16.2 - Hypoglycemia, unspecified Status: Acute Assessment and Plan: * noted earlier * blood sugars are stable now (9) Hypercalcemia: Code(s): E83.52 - Hypercalcemia Status: Acute Assessment and Plan: Calcium levels very high but better. Calcitonin plus pamidronate on board. Pre renal factors may be playing a role. This is improving long discussion with Dr Bolton (10) Hypernatremia: Code(s): E87.0 - Hyperosmolality and hypernatremia Status: Acute Assessment and Plan: Sodium level is high. This plus the high calcium make it seem that she has pre renal factors. Will check urine sodium Calcium level has not been high before this admission. Another contributing factor may be immobilization causing resorption from the bone. Is not getting calcium supplements. calcium level is coming down, sodium level is coming down, and urine output is good Subjective Date/time seen: 09/09/24 08:59 Interval history: patient is on the ventilator. in the room. Patient comfortable on the vent Exam Narrative: General: WD/WN female intubated/sedated and on mechanical ventilation Heart: tachycardic, normal S1 and S2 Lungs: Coarse upper airway noise bilaterally Abdomen: bowel sounds positive soft nontender Extremities: Bilateral edema in UEs Skin: scattered healing wounds over LEs; bilateral finger discoloration noted. S looks about the same Objective Data Vital Signs Vital Signs: Vital Signs - 24 hr 09/08/24 09:00 09/08/24 10:00 09/08/24 10:00 Temperature 99.9 F H Pulse Rate 127 H 137 H 146 H Respiratory Rate 26 H 35 H 26 H Blood Pressure 188/101 H Pulse Oximetry 97 Oxygen Delivery Fraction of Inspired Oxygen 09/08/24 10:00 09/08/24 10:00 09/08/24 10:00 Temperature Pulse Rate 146 H 146 H 133 H Respiratory Rate 26 H 26 H Blood Pressure Pulse Oximetry Oxygen Delivery Fraction of Inspired Oxygen 09/08/24 10:25 09/08/24 10:31 09/08/24 10:37 Temperature Pulse Rate 146 H 144 H 146 H Respiratory Rate 26 H Blood Pressure Pulse Oximetry 98 Oxygen Delivery Mechanical Ventilation Fraction of Inspired Oxygen 09/08/24 10:37 09/08/24 10:56 09/08/24 11:04 Temperature 99.2 F Pulse Rate 146 H 149 H 146 H Respiratory Rate 26 H 23 H Blood Pressure 167/88 H Pulse Oximetry 98 Oxygen Delivery Fraction of Inspired Oxygen 09/08/24 11:12 09/08/24 12:00 09/08/24 12:00 Temperature 98.6 F 98.4 F Pulse Rate 126 H 101 H 101 H Respiratory Rate 24 H 26 H 26 H Blood Pressure 180/96 H 108/55 L Pulse Oximetry 98 99 Oxygen Delivery Fraction of Inspired Oxygen 09/08/24 12:00 09/08/24 12:00 09/08/24 12:00 Temperature Pulse Rate 101 H Respiratory Rate Blood Pressure Pulse Oximetry 99 Oxygen Delivery Mechanical Ventilation Fraction of Inspired Oxygen 35 35 09/08/24 12:12 09/08/24 12:45 09/08/24 13:51 Temperature 98.4 F 98.3 F Pulse Rate 101 H 106 H 116 H Respiratory Rate 25 H 26 H Blood Pressure 112/58 L 117/60 Pulse Oximetry 99 99 98 Oxygen Delivery Mechanical Ventilation Fraction of Inspired Oxygen 09/08/24 14:00 09/08/24 14:00 09/08/24 14:00 Temperature Pulse Rate 112 H 103 H 101 H Respiratory Rate 50 H 26 H Blood Pressure 165/85 H Pulse Oximetry 99 Oxygen Delivery Fraction of Inspired Oxygen 09/08/24 14:57 09/08/24 14:57 09/08/24 16:00 Temperature 98.8 F Pulse Rate 102 H 102 H 101 H Respiratory Rate 25 H 25 H 26 H Blood Pressure 127/66 Pulse Oximetry 94 Oxygen Delivery Fraction of Inspired Oxygen 09/08/24 16:00 09/08/24 16:00 09/08/24 16:00 Temperature Pulse Rate 98 101 H Respiratory Rate 22 H Blood Pressure Pulse Oximetry Oxygen Delivery Fraction of Inspired Oxygen 35 09/08/24 16:00 09/08/24 17:06 09/08/24 18:00 Temperature Pulse Rate 100 102 H Respiratory Rate 27 H Blood Pressure 151/74 H Pulse Oximetry 97 95 95 Oxygen Delivery Mechanical Ventilation Mechanical Ventilation Fraction of Inspired Oxygen 35 09/08/24 18:00 09/08/24 18:00 09/08/24 18:24 Temperature 99.3 F Pulse Rate 109 H 113 H Respiratory Rate 25 H Blood Pressure Pulse Oximetry Oxygen Delivery Fraction of Inspired Oxygen 09/08/24 18:44 09/08/24 18:44 09/08/24 18:46 Temperature Pulse Rate 115 H 115 H Respiratory Rate 23 H 23 H Blood Pressure 168/85 H Pulse Oximetry Oxygen Delivery Fraction of Inspired Oxygen 09/08/24 19:00 09/08/24 19:15 09/08/24 19:30 Temperature Pulse Rate 120 H 137 H 141 H Respiratory Rate 29 H 35 H 45 H Blood Pressure Pulse Oximetry 96 95 97 Oxygen Delivery Fraction of Inspired Oxygen 09/08/24 19:45 09/08/24 19:52 09/08/24 20:00 Temperature 99.9 F H Pulse Rate 145 H 141 H 115 H Respiratory Rate 36 H 35 H Blood Pressure 157/79 H Pulse Oximetry 96 97 Oxygen Delivery Fraction of Inspired Oxygen 09/08/24 20:00 09/08/24 20:00 09/08/24 20:00 Temperature Pulse Rate 115 H 110 H Respiratory Rate 35 H Blood Pressure Pulse Oximetry Oxygen Delivery Fraction of Inspired Oxygen 35 09/08/24 20:00 09/08/24 20:00 09/08/24 20:15 Temperature Pulse Rate 115 H 115 H 119 H Respiratory Rate 35 H 34 H 38 H Blood Pressure Pulse Oximetry 97 97 98 Oxygen Delivery Mechanical Ventilation Fraction of Inspired Oxygen 35 09/08/24 20:26 09/08/24 20:32 09/08/24 20:33 Temperature Pulse Rate 120 H 107 H 108 H Respiratory Rate 30 H Blood Pressure Pulse Oximetry 97 97 Oxygen Delivery Mechanical Ventilation Fraction of Inspired Oxygen 09/08/24 20:45 09/08/24 21:00 09/08/24 21:15 Temperature Pulse Rate 114 H 113 H 108 H Respiratory Rate 30 H 45 H 32 H Blood Pressure Pulse Oximetry 97 98 Oxygen Delivery Fraction of Inspired Oxygen 09/08/24 21:30 09/08/24 21:45 09/08/24 22:00 Temperature Pulse Rate 114 H 113 H 117 H Respiratory Rate 34 H 26 H 29 H Blood Pressure Pulse Oximetry 98 97 Oxygen Delivery Fraction of Inspired Oxygen 09/08/24 22:00 09/08/24 22:00 09/08/24 22:00 Temperature 99.5 F Pulse Rate 117 H 116 H 110 H Respiratory Rate 26 H 28 H Blood Pressure 164/83 H Pulse Oximetry 97 97 Oxygen Delivery Fraction of Inspired Oxygen 09/08/24 22:15 09/08/24 22:20 09/08/24 22:30 Temperature Pulse Rate 107 H 108 H 117 H Respiratory Rate 31 H 32 H Blood Pressure Pulse Oximetry 97 97 97 Oxygen Delivery Mechanical Ventilation Fraction of Inspired Oxygen 09/08/24 22:45 09/08/24 23:00 09/08/24 23:11 Temperature Pulse Rate 107 H 108 H 114 H Respiratory Rate 28 H 33 H 28 H Blood Pressure Pulse Oximetry 97 97 Oxygen Delivery Fraction of Inspired Oxygen 09/08/24 23:11 09/08/24 23:15 09/08/24 23:30 Temperature Pulse Rate 114 H 111 H 100 Respiratory Rate 28 H 30 H 21 H Blood Pressure Pulse Oximetry 96 96 Oxygen Delivery Fraction of Inspired Oxygen 09/08/24 23:45 09/09/24 00:00 09/09/24 00:00 Temperature Pulse Rate 96 103 H 98 Respiratory Rate 21 H 24 H Blood Pressure Pulse Oximetry 97 Oxygen Delivery Fraction of Inspired Oxygen 09/09/24 00:00 09/09/24 00:00 09/09/24 00:00 Temperature 97.8 F Pulse Rate 103 H 100 Respiratory Rate 24 H 28 H Blood Pressure 140/70 Pulse Oximetry 97 96 Oxygen Delivery Mechanical Ventilation Fraction of Inspired Oxygen 35 35 09/09/24 00:00 09/09/24 00:15 09/09/24 00:30 Temperature Pulse Rate 96 99 100 Respiratory Rate 23 H 28 H 26 H Blood Pressure Pulse Oximetry 96 96 96 Oxygen Delivery Fraction of Inspired Oxygen 09/09/24 00:45 09/09/24 01:00 09/09/24 01:15 Temperature Pulse Rate 102 H 123 H 123 H Respiratory Rate 28 H 31 H 35 H Blood Pressure Pulse Oximetry 97 95 95 Oxygen Delivery Fraction of Inspired Oxygen 09/09/24 01:30 09/09/24 02:00 09/09/24 02:00 Temperature Pulse Rate 126 H 124 H 124 H Respiratory Rate 39 H 36 H Blood Pressure 141/72 H Pulse Oximetry 95 Oxygen Delivery Fraction of Inspired Oxygen 09/09/24 02:00 09/09/24 02:00 09/09/24 02:15 Temperature 99.5 F Pulse Rate 124 H 123 H 126 H Respiratory Rate 36 H 36 H Blood Pressure 141/72 H Pulse Oximetry 95 95 Oxygen Delivery Mechanical Ventilation Fraction of Inspired Oxygen 35 09/09/24 03:40 09/09/24 03:55 09/09/24 04:00 Temperature 98.8 F Pulse Rate 101 H 101 H 100 Respiratory Rate 28 H 28 H 28 H Blood Pressure 128/65 Pulse Oximetry 99 Oxygen Delivery Fraction of Inspired Oxygen 09/09/24 04:00 09/09/24 04:00 09/09/24 04:00 Temperature Pulse Rate 97 Respiratory Rate Blood Pressure Pulse Oximetry 100 Oxygen Delivery Mechanical Ventilation Fraction of Inspired Oxygen 35 35 09/09/24 05:13 09/09/24 05:49 09/09/24 06:00 Temperature Pulse Rate 96 101 H 104 H Respiratory Rate 27 H Blood Pressure Pulse Oximetry 99 Oxygen Delivery Mechanical Ventilation Fraction of Inspired Oxygen 35 09/09/24 06:00 09/09/24 08:00 09/09/24 08:00 Temperature Pulse Rate 104 H 101 H Respiratory Rate 28 H 26 H Blood Pressure 137/72 Pulse Oximetry 98 Oxygen Delivery Fraction of Inspired Oxygen 35 09/09/24 08:00 09/09/24 08:13 09/09/24 08:29 Temperature Pulse Rate 101 H 101 H Respiratory Rate 26 H Blood Pressure Pulse Oximetry 98 Oxygen Delivery Mechanical Ventilation Fraction of Inspired Oxygen 35 35 09/09/24 08:34 Temperature Pulse Rate 99 Respiratory Rate Blood Pressure Pulse Oximetry Oxygen Delivery Fraction of Inspired Oxygen Intake/Output Intake/Output: Intake & Output 09/06/24 09/07/24 09/08/24 09/09/24 23:59 23:59 23:59 23:59 Intake Total 2195.6 2168.4 4275.8 1467.7 Output Total 3200 2200 3900 1760 Balance -1004.4 -31.6 375.8 -292.3 Meds/Results Medications: Active Medications Generic Name Dose Route Start Last Admin Trade Name Freq PRN Reason Stop Dose Admin Acetaminophen 650 mg 08/29/24 18:17 Acetaminophen 325 Mg Tablet PO Q4H PRN Mild Pain (1-3) or Fever Acetaminophen 650 mg 08/30/24 00:43 08/30/24 06:56 Acetaminophen 650 Mg Suppository RECTAL 650 mg Q6H PRN Administration Mild Pain (1-3) or Fever Bumetanide 1 mg 09/08/24 09:00 09/09/24 08:33 Bumetanide Inj 1 Mg/4 Ml Vial IV PUSH 1 mg Q12H RHYS Administration Calcitonin [place] 240 units 09/07/24 10:45 09/09/24 08:43 Calcitonin [place] Inj 400 Units/2 Ml Vial SUB-Q 09/09/24 21:01 240 units Q12HR RHYS Administration Dextrose 12.5 gm 08/29/24 20:42 08/31/24 20:55 Dextrose 50% 25 Gm/50 Ml Syringe IV PUSH 12.5 gm PRN PRN Administration Hypoglycemia Protocol Enoxaparin Sodium 60 mg 09/03/24 11:35 09/09/24 00:23 Enoxaparin 60 Mg/0.6 Ml Syringe SUB-Q 60 mg Q12H RHYS Administration Glucagon 1 mg 08/29/24 20:42 Glucagon For Inj 1 Mg Vial IM PRN PRN Hypoglycemia Protocol Glucose 15 gm 08/29/24 20:42 Glucose Oral Gel 15 Gm Of Glucse In 37.5 Gm Tube PO PRN PRN Hypoglycemia Protocol Hydralazine HCl 10 mg 09/08/24 15:05 09/09/24 00:43 Hydralazine Hcl 20 Mg/Ml Vial IV PUSH 10 mg Q4HR PRN Administration Blood Pressure - High Hydrocortisone Sodium Succinate 20 mg 09/03/24 09:00 09/09/24 08:34 Hydrocortisone Sodium Succinate 100 Mg/2 Ml Vial IV PUSH 20 mg QAM RHYS Administration Dextrose 1,000 mls @ 100 mls/hr 08/29/24 20:42 Dextrose 5% 1,000 Ml IVPB PRN PRN Hypoglycemia Protocol Micafungin Sodium 100 mg/ 100 mls @ 100 mls/hr 09/04/24 10:20 09/09/24 08:35 Sodium Chloride IVPB 100 mls/hr DAILY RHYS Administration Levofloxacin/Dextrose 750 mg in 150 mls @ 100 mls/hr 09/05/24 09:00 09/09/24 08:33 Levaquin 750 Mg/D5w 150 Ml IVPB 100 mls/hr Q48H RHYS Administration Meropenem 1 gm in 100 mls @ 200 mls/hr 09/06/24 11:00 09/08/24 21:27 IVPB 200 mls/hr Q12HR RHYS Administration Dexmedetomidine HCl 400 mcg in 100 mls @ 14.155 mls/hr 09/06/24 14:00 09/09/24 08:00 Precedex 400 Mcg/100 Ml IV CONT 1 mcg/kg/hr .Q7H4M RHYS 14.9 mls/hr Administration Protocol 0.95 MCG/KG/HR Vancomycin HCl 1,250 mg in 250 mls @ 166.667 mls/hr 09/09/24 21:00 Vancomycin 1,250 Mg/Ns 250 Ml IVPB Q36H RHYS Dextrose 1,000 mls @ 100 mls/hr 09/08/24 09:35 09/09/24 08:32 Dextrose 5% 1,000 Ml IV CONT 100 mls/hr .Q10H RHYS Administration Potassium Chloride 100 mls @ 25 mls/hr 09/09/24 05:17 09/09/24 05:43 Kcl 40 Meq/Water 100 Ml IVPB 09/09/24 09:16 25 mls/hr ONCE ONE Administration Potassium Phosphate 20 mmol/ 256.6667 mls @ 64.167 mls/hr 09/09/24 10:00 Sodium Chloride IVPB 09/09/24 13:59 ONCE ONE Insulin Aspart 3 - 6 units 09/09/24 00:00 09/09/24 05:15 Insulin Aspart (*Bkc) 100 Units/Ml SUB-Q Not Given Q6HR RHYS Protocol Metoclopramide HCl 10 mg 09/01/24 08:00 09/09/24 05:32 Metoclopramide Hcl 10 Mg/10 Ml Soln Udc FEED TUBE 10 mg Q6HR RHYS Administration Metoprolol Tartrate 25 mg 09/06/24 13:55 09/09/24 08:34 Metoprolol Tartrate 25 Mg Tablet PO 25 mg Q12HR RHYS Administration Metoprolol Tartrate 5 mg 09/08/24 11:07 09/08/24 19:52 Metoprolol Tartrate Inj 5 Mg/5 Ml Vial IV PUSH 5 mg Q6H PRN Administration HR>130 Miscellaneous Information 1 each 09/09/24 00:01 09/09/24 00:02 Please Renew Dexmedetomidine_. Per [employer] Procedure, It Will Discontinue If Not Renewed XX 10/09/24 00:00 Not Given CLARIFY RHYS Multi-Ingred Cream/Lotion/Oil/Oint 1 applic 08/30/24 10:20 09/09/24 08:35 Mineral Oil/White Petrolatum Ointment EACH EYE 1 applic Q12HR RHYS Administration Pantoprazole Sodium 40 mg 08/30/24 10:40 09/09/24 08:32 Pantoprazole Sodium Iv 40 Mg Vial IV PUSH 40 mg Q12HR RHYS Administration Prednisolone Acetate 1 drop 08/30/24 21:00 09/09/24 08:35 Prednisolone Acetate 1% Ophth 5 Ml RIGHT EYE 1 drop Q12HR RHYS Administration Sodium Chloride 10 ml 08/30/24 12:17 Central Line Flush IV PUSH PRN PRN with TPN bag changes Sodium Chloride 20 ml 08/30/24 12:17 Central Line Flush IV PUSH PRN PRN after blood draws Sodium Chloride 10 ml 09/04/24 22:00 09/09/24 04:45 Central Line Flush IV PUSH 10 ml Q8HR RHYS Administration Sodium Chloride 20 ml 09/04/24 12:30 09/09/24 04:45 Central Line Flush IV PUSH 20 ml PRN PRN Administration after blood draws Radiology Results: ITS Impressions Head CT 08/29/24 21:55 Impression: No acute intracranial hemorrhage or suspicious mass effect. Chest/Abdomen/Pelvis CT 08/29/24 21:57 IMPRESSION: Dense bilateral multifocal infiltrates, predominantly perihilar, as detailed above. No additional source is detected for patient's profound sepsis. Abdomen X-Ray 08/30/24 11:02 IMPRESSION: Bilateral pneumonia. Differential include pulmonary edema. Venous Doppler Study 09/03/24 10:50 IMPRESSION: 1. Extensive deep and superficial venous thrombosis throughout the bilateral upper lungs as detailed above. Findings were discussed with Jacinto Victor, the nurse caring for the patient, at 10:59 AM. ADDENDUM: 09/03/24 1400 CORRECTION: There is a dictation error in the impression section. With the correction capitalized this should read- Extensive deep and superficial venous thrombosis throughout the bilateral upper LIMBS as detailed above. Chest X-Ray 09/09/24 07:14 Impression: Hazy bilateral airspace disease could reflect pneumonia versus pulmonary edema. Probable underlying chronic interstitial disease. Stable support tubes. Labs Labs: Laboratory Results - last 24 hr 09/08/24 09/08/24 09/08/24 07:59 10:35 11:18 WBC RBC Hgb Hct MCV MCH MCHC RDW Plt Count MPV Immature Gran % (Auto) Neut % (Auto) Lymph % (Auto) [place] % (Auto) Eos % (Auto) Baso % (Auto) Lymph # (Auto) [place] # (Auto) Eos # (Auto) Baso # (Auto) Abs Immat Gran (auto) Absolute Neuts (auto) Absolute Nucleated RBC Total Counted Neutrophils % (Manual) Band Neutrophils % Lymphocytes % (Manual) Monocytes % (Manual) Metamyelocytes % Nucleated RBC % Abs Neuts (Manual) Abs Lymphs (Manual) Abs Monocytes (Manual) Platelet Estimate Poikilocytosis Anisocytosis Schistocytes Puncture Site ABG pH ABG pCO2 ABG pO2 ABG PO2/FiO2 Ratio ABG HCO3 ABG O2 Saturation ABG O2 Content ABG Base Excess A-a Gradient Oxyhemoglobin Carboxyhemoglobin Methemoglobin Reduced Hemoglobin Total Hemoglobin O2 Delivery Device O2 Liters/Min Minute Volume Vent Rate Vent Mode FiO2 Tidal Volume PEEP Peak Inspir Pressure Pressure Support Sodium Potassium Chloride Carbon Dioxide Anion Gap BUN Creatinine Estim Creat Clear Calc Estimated GFR Glucose POC Capillary Glucose 110 H Calcium Phosphorus Magnesium Total Bilirubin AST ALT Alkaline Phosphatase Total Protein Albumin U Random Total Protein Ur Random Sodium Ur Random Urea Urine Creatinine Protein/Creat Ratio 2 Nasal MRSA (PCR) Not detected Blood Type O Positive Antibody Screen Negative Crossmatch See Detail 09/08/24 09/08/24 09/08/24 12:32 13:44 17:56 WBC 47.8 H RBC 2.96 L Hgb 8.8 L Hct 27.3 L MCV 92.2 MCH 29.7 MCHC 32.2 RDW 20.9 H Plt Count 491 H MPV 10.7 H Immature Gran % (Auto) Neut % (Auto) Lymph % (Auto) [place] % (Auto) Eos % (Auto) Baso % (Auto) Lymph # (Auto) [place] # (Auto) Eos # (Auto) Baso # (Auto) Abs Immat Gran (auto) Absolute Neuts (auto) Absolute Nucleated RBC Total Counted Neutrophils % (Manual) Band Neutrophils % Lymphocytes % (Manual) Monocytes % (Manual) Metamyelocytes % Nucleated RBC % Abs Neuts (Manual) Abs Lymphs (Manual) Abs Monocytes (Manual) Platelet Estimate Poikilocytosis Anisocytosis Schistocytes Puncture Site ABG pH ABG pCO2 ABG pO2 ABG PO2/FiO2 Ratio ABG HCO3 ABG O2 Saturation ABG O2 Content ABG Base Excess A-a Gradient Oxyhemoglobin Carboxyhemoglobin Methemoglobin Reduced Hemoglobin Total Hemoglobin O2 Delivery Device O2 Liters/Min Minute Volume Vent Rate Vent Mode FiO2 Tidal Volume PEEP Peak Inspir Pressure Pressure Support Sodium Potassium Chloride Carbon Dioxide Anion Gap BUN Creatinine Estim Creat Clear Calc Estimated GFR Glucose POC Capillary Glucose 122 H Calcium Phosphorus Magnesium Total Bilirubin AST ALT Alkaline Phosphatase Total Protein Albumin U Random Total Protein 26 Ur Random Sodium 101 Ur Random Urea 393 Urine Creatinine 7.7 Protein/Creat Ratio 2 3.38 H Nasal MRSA (PCR) Blood Type Antibody Screen Crossmatch 09/09/24 09/09/24 09/09/24 00:07 04:35 04:40 WBC 43.6 H RBC 2.76 L Hgb 8.2 L Hct 25.1 L MCV 90.9 MCH 29.7 MCHC 32.7 RDW 20.1 H Plt Count 448 H MPV 10.7 H Immature Gran % (Auto) Not Reportable Neut % (Auto) Not Reportable Lymph % (Auto) Not Reportable [place] % (Auto) Not Reportable Eos % (Auto) Not Reportable Baso % (Auto) Not Reportable Lymph # (Auto) Not Reportable [place] # (Auto) Not Reportable Eos # (Auto) Not Reportable Baso # (Auto) Not Reportable Abs Immat Gran (auto) Not Reportable Absolute Neuts (auto) Not Reportable Absolute Nucleated RBC Not Reportable Total Counted 100 Neutrophils % (Manual) 65 Band Neutrophils % 5 Lymphocytes % (Manual) 15.0 L Monocytes % (Manual) 11 H Metamyelocytes % 4 Nucleated RBC % Not Reportable Abs Neuts (Manual) 30.52 H Abs Lymphs (Manual) 6.54 H Abs Monocytes (Manual) 4.79 H Platelet Estimate Adequate Poikilocytosis 1+ Anisocytosis 1+ Schistocytes None seen Puncture Site Artline ABG pH 7.577 H* ABG pCO2 23.0 L* ABG pO2 107.4 H ABG PO2/FiO2 Ratio 3.07 ABG HCO3 20.9 L ABG O2 Saturation 98.6 ABG O2 Content 15.7 L ABG Base Excess 0.3 A-a Gradient 115.4 Oxyhemoglobin 96.9 Carboxyhemoglobin 0.9 Methemoglobin 0.3 Reduced Hemoglobin 1.9 Total Hemoglobin 11.4 L O2 Delivery Device Ventilator O2 Liters/Min Not Reportable Minute Volume Not Reportable Vent Rate 18 Vent Mode Cmv FiO2 35 Tidal Volume 370 PEEP 8 Peak Inspir Pressure Not Reportable Pressure Support Not Reportable Sodium 146 H Potassium 2.7 L* Chloride 115 H Carbon Dioxide 26 Anion Gap 5 BUN 100 H D Creatinine 0.89 Estim Creat Clear Calc 41 Estimated GFR > 60 Glucose 123 H POC Capillary Glucose 120 H Calcium 10.9 H Phosphorus 2.4 L Magnesium 1.5 L Total Bilirubin 0.4 AST 85 H ALT 30 Alkaline Phosphatase 116 Total Protein 5.4 L Albumin 2.4 L U Random Total Protein Ur Random Sodium Ur Random Urea Urine Creatinine Protein/Creat Ratio 2 Nasal MRSA (PCR) Blood Type Antibody Screen Crossmatch
[2024-09-09] MEDS: MEROPENEM 1 GM/NS 100 ML 1 GM/100 ML BAG IVPB ×2 (09:17→20:58)
[2024-09-09] MEDS: POTASSIUM PHOS,M-BASIC-D-BASIC 20 MMOL in SODIUM CHLORIDE 0.9% IV 250 ML 64.17 MMOL IVPB (10:42)
--- NOTE | 2024-09-09 11:28 | WPDINTPN ---
Progress Note: A&P Assessment and Plan (1) Acute respiratory failure: Code(s): J96.00 - Acute respiratory failure, unspecified whether with hypoxia or hypercapnia Status: Acute Assessment and Plan: Acute respiratory failure and sepsis secondary to bilateral Pseudomonas pneumonia in an immunocompromised patient who was on methotrexate and hydroxychloroquine. -ARDS physiology -08/30: Intubated for tachypnea, tachycardia, respiratory distress 08/31: bronchoscopy which did not show any LR hemorrhage or tracheobronchitis 08/31: BAL culture is growing Pseudomonas which is pansensitive. Also Milagros glabrata -08/29: Blood culture negative -08/20: sputum culture negative -09/04: Repeat blood cultures are negative PCR for influenza RSV and COVID was negative Urine Legionella negative and pneumococcal antigen negative Negative Mycoplasma IgM Continue hydrocortisone but will decrease dose as patient was on chronic low-dose prednisone -09/04: Patient placed in prone position due to increased oxygen requirements secondary to ARDS and Pseudomonas pneumonia. Patient was also paralyzed with rocuronium and started on Nimbex infusion for ventilator synchrony 09/05: prone position, ABGs reviewed, ventilator adjusted. Patient will be placed in supine position, off Nimbex infusion 09/06: Patient was placed in supine position yesterday and remains in supine position this morning. Currently on 45% FiO2 and peep of 12 with good O2 sats. I have asked the bedside RN to start weaning sedation, start Precedex infusion if needed 09/06: . Given that patient's WBC count is elevated will switch cefepime to meropenem (09/06). Elevated WBC count could also be related to steroids 09/07: Continue meropenem and Levaquin, WBC count trending down, continue to monitor. Chest x-ray also improving 09/08: WBC count remains elevated, add vancomycin. Weaned PEEP to 8 and FiO2 to 35% 09/09: Place patient on pressure support ventilation 12/16, tolerating, continue to wean Precedex 08/29 CT Chest Dense bilateral multifocal infiltrates, predominantly perihilar, as detailed above. No additional source is detected for patient's profound sepsis (2) Gastroesophageal reflux disease: Qualifiers: Esophagitis presence: esophagitis presence not specified Qualified Code(s): K21.9 - Gastro-esophageal reflux disease without esophagitis Code(s): K21.9 - Gastro-esophageal reflux disease without esophagitis Status: Acute Assessment and Plan: PPI q.12 hours (3) FRANK (acute kidney injury): Code(s): N17.9 - Acute kidney failure, unspecified Status: Acute Assessment and Plan: Patient presented with elevated creatinine which was likely secondary to sepsis. Creatinine improved with IV fluids Cut down on further IV fluids and patient was given IV fluids Urine output improved. Creatinine in normal range maintain map above 65 mmHg Monitor urine output electrolytes and creatinine Patient has received Lasix, Bumex, Diuril [place] catheter for accurate I&Os Increased BUN and hypercalcemia -discussed with Nephrology, meg peralta patient with Diuril -hypercalcemia: Received calcitonin and pamidronate along with diuretics 09/07. Effect of pamidronate takes place within 72 hours, s 09/09: Calcium levels improving, continue to monitor (4) Sepsis: Qualifiers: Sepsis acute organ dysfunction status: with acute organ dysfunction Sepsis type: sepsis due to unspecified organism Severe sepsis acute organ dysfunction type: encephalopathy Severe sepsis shock status: without septic shock Qualified Code(s): A41.9 - Sepsis, unspecified organism; R65.20 - Severe sepsis without septic shock; G93.41 - Metabolic encephalopathy Code(s): A41.9 - Sepsis, unspecified organism Status: Acute Assessment and Plan: See above (5) Immunosuppressed status: Code(s): D89.9 - Disorder involving the immune mechanism, unspecified Status: Acute Assessment and Plan: Patient was on steroids and immunosuppressants at home (6) Rheumatoid arthritis: Code(s): M06.9 - Rheumatoid arthritis, unspecified Status: Acute Assessment and Plan: Hold methotrexate and hydroxychloroquine (7) Toxic metabolic encephalopathy: Code(s): G92.8 - Other toxic encephalopathy Status: Acute Assessment and Plan: Patient presented with altered mental status and confusion which appears to be encephalopathy ache. Patient has sepsis and was on several medication including tramadol and benzodiazepine at home Head CT was negative TSH was normal Patient obviously now sedated and intubated. Patient has been on benzodiazepine and pain medications chronically and requiring significant amount of medications to keep her sedated 09/08: Patient in fentanyl, Versed Precedex infusion. Allows the bedside RN to continue to wean sedation to wake up the patient to evaluate neuro status (8) Pneumonia: Qualifiers: Laterality: bilateral Lung location: unspecified part of lung Pneumonia type: due to unspecified organism Qualified Code(s): J18.9 - Pneumonia, unspecified organism Code(s): J18.9 - Pneumonia, unspecified organism Status: Acute Assessment and Plan: See above (9) Urinary tract infection: Qualifiers: Hematuria presence: with hematuria Urinary tract infection type: site unspecified Qualified Code(s): N39.0 - Urinary tract infection, site not specified; R31.9 - Hematuria, unspecified Code(s): N39.0 - Urinary tract infection, site not specified Status: Acute Assessment and Plan: UA suggestive of UTI 08/29: Urine cultures - negative (10) Herpes labialis: Code(s): B00.1 - Herpesviral vesicular dermatitis Status: Acute Assessment and Plan: Continue acyclovir through tube (11) Hypoglycemia: Code(s): E16.2 - Hypoglycemia, unspecified Status: Acute Assessment and Plan: Patient had couple episodes of hypoglycemia early in the course. OFF D10 infusion -blood sugars are stable as patient now on tube feed (12) Ileus: Code(s): K56.7 - Ileus, unspecified Status: Acute Assessment and Plan: Although bowel sounds are present patient has not been tolerating tube feeds with very high residuals. -On Tube feeds 20 mL/hour. Continue reglan, will increase tube feeds gradually to goal (13) Peripheral ischemia: Code(s): I99.8 - Other disorder of circulatory system Status: Acute Assessment and Plan: Patient has developed discoloration/gangrene of all 10 fingers. likely systemic presentation suggest against vascular clot, septic emboli, pseudomonal infection Radial pulses are dopplerable Blood pressure are adequate Monitor maintain mean arterial pressure above 65 mmHg -discoloration on her fingers are improving, also blistering noted on some of the fingers, continue to monitor (14) Swelling of both upper extremities: Code(s): M79.89 - Other specified soft tissue disorders Status: Acute Assessment and Plan: Likely secondary to edema as it is bilateral 09/03: Bilateral upper extremity venous Doppler showed extensive deep and superficial venous thrombosis throughout the bilateral upper extremities -continue therapeutic Lovenox IV q.12 hours (15) Anemia: Qualifiers: Anemia type: unspecified type Qualified Code(s): D64.9 - Anemia, unspecified Code(s): D64.9 - Anemia, unspecified Status: Acute Assessment and Plan: 09/08: Hemoglobin 7.0, will transfuse 1 unit of packed RBC 09/09: Hemoglobin stable, continue to monitor 09/02: Patient also received 1 unit of packed RBCs for hemoglobin of 6.9 (16) Electrolyte imbalance: Code(s): E87.8 - Other disorders of electrolyte and fluid balance, not elsewhere classified Status: Acute Assessment and Plan: Magnesium, potassium, phosphorus have been replaced -will recheck again this afternoon since patient is on diuresis Plan DVT prophylaxis -continue therapeutic Lovenox Stress ulcer prophylaxis -Protonix IV q.12 hours Nutrition -had high residuals overnight, but this morning residuals are better, will increase tube feeds to goal, continue Reglan, Code Status - DNR Total Critical Care Time - 34 minutes Discussed with patient's , Son and [id number]. Updated them with patient's condition and plan of care. I updated them with the labs and radiology. They are aware that patient is on pressure support ventilation, weaning Precedex and off all other sedation meds.. I answered all the questions. Due to a high probability of clinically significant, life threatening deterioration, the patient required my highest level of preparedness to intervene emergently and I personally spent this critical care time directly and personally managing the patient. This critical care time included obtaining a history; examining the patient; pulse oximetry; ordering and review of studies; arranging urgent treatment with development of a management plan; evaluation of patient's response to treatment; frequent reassessment; and discussions with other providers. It was exclusive of separately billable procedures and treating other patients and teaching time. Please see Assessment and Plan section and the rest of the note for further information on patient assessment and treatment Subjective Date/time seen: 09/09/24 11:28 Interval history: 68-year-old with a history of rheumatoid arthritis, Crohn's, on immunosuppressive medications, GERD admitted to ICU for pneumonia and respiratory failure requiring intubation and mechanical ventilation Reason for consult: Acute respiratory failure, ARDS physiology, sepsis, encephalopathy, pneumonia, herpes labialis, hyperglycemia, ileus, bilateral upper extremity DVTs 09/08/2024: Patient seen and examined the ICU, remains intubated on CMV mode of ventilation, peep of 8, 35% FiO2. Off all sedation, only on Precedex infusion. Patient tries to open her eyes but does not follow simple commands. Tube feed residuals were elevated overnight, tube feed rate was decreased. Residuals this morning a much improved. Patient responding well to diuresis, creatinine has stable hemodynamically stable. WBC count trending down 43 this morning. Hemoglobin remained stable Review of Systems Review of Systems: ROS unobtainable: Yes unobtainable due to endotracheal tube, unobtainable due to medical condition and unobtainable due to mental status Exam Narrative: General: Pt is now sedated, intubated, in Supine position, no acute distress HEENT: Pupils equal and reactive, sclera is clear, ETT in place, tongue is swollen Lungs/Chest: Coarse breath sounds bilaterally, decreased at bases, no wheezing Cardiac: Tachycardia RRR. Normal S1 S2. No murmurs Circulation: Bilateral radial pulses dopplerable and bilateral pedal pulses are palpable, Abdomen: Decreased bowel sounds. Soft. NT. ND. Extremities: Warm, edema of bilateral upper extremities with gauze wrapped around them due to weeping : Obregon in place Neurologic: Intubated, Precedex infusion, tries to open her eyes to name but does not follow simple commands Skin: 08/30 edema with breakdown of the skin which appears to be popped blisters on right labia. She also has several scabbed wounds on her both legs which are in various healing stage but no open or infected wound. All 10 fingers discoloration is improving, blisters on some of the fingers. Fingers are more warm, except the tip of the finger still remain discolored and cold. No discoloration noted on the toes bilaterally, Objective Data Vital Signs Vital Signs: Vital Signs - 24 hr 09/08/24 12:00 09/08/24 12:00 09/08/24 12:00 Temperature 98.4 F Pulse Rate 101 H 101 H Respiratory Rate 26 H 26 H Blood Pressure 108/55 L Pulse Oximetry 99 Oxygen Delivery Fraction of Inspired Oxygen 35 09/08/24 12:00 09/08/24 12:00 09/08/24 12:12 Temperature 98.4 F Pulse Rate 101 H 101 H Respiratory Rate 25 H Blood Pressure 112/58 L Pulse Oximetry 99 99 Oxygen Delivery Mechanical Ventilation Fraction of Inspired Oxygen 35 09/08/24 12:45 09/08/24 13:51 09/08/24 14:00 Temperature 98.3 F Pulse Rate 106 H 116 H 112 H Respiratory Rate 26 H 50 H Blood Pressure 117/60 165/85 H Pulse Oximetry 99 98 99 Oxygen Delivery Mechanical Ventilation Fraction of Inspired Oxygen 09/08/24 14:00 09/08/24 14:00 09/08/24 14:57 Temperature Pulse Rate 103 H 101 H 102 H Respiratory Rate 26 H 25 H Blood Pressure Pulse Oximetry Oxygen Delivery Fraction of Inspired Oxygen 09/08/24 14:57 09/08/24 16:00 09/08/24 16:00 Temperature 98.8 F Pulse Rate 102 H 101 H Respiratory Rate 25 H 26 H Blood Pressure 127/66 Pulse Oximetry 94 Oxygen Delivery Fraction of Inspired Oxygen 35 09/08/24 16:00 09/08/24 16:00 09/08/24 16:00 Temperature Pulse Rate 98 101 H Respiratory Rate 22 H Blood Pressure Pulse Oximetry 97 Oxygen Delivery Mechanical Ventilation Fraction of Inspired Oxygen 35 09/08/24 17:06 09/08/24 18:00 09/08/24 18:00 Temperature Pulse Rate 100 102 H 109 H Respiratory Rate 27 H Blood Pressure 151/74 H Pulse Oximetry 95 95 Oxygen Delivery Mechanical Ventilation Fraction of Inspired Oxygen 09/08/24 18:00 09/08/24 18:24 09/08/24 18:44 Temperature 99.3 F Pulse Rate 113 H 115 H Respiratory Rate 25 H 23 H Blood Pressure Pulse Oximetry Oxygen Delivery Fraction of Inspired Oxygen 09/08/24 18:44 09/08/24 18:46 09/08/24 19:00 Temperature Pulse Rate 115 H 120 H Respiratory Rate 23 H 29 H Blood Pressure 168/85 H Pulse Oximetry 96 Oxygen Delivery Fraction of Inspired Oxygen 09/08/24 19:15 09/08/24 19:30 09/08/24 19:45 Temperature Pulse Rate 137 H 141 H 145 H Respiratory Rate 35 H 45 H 36 H Blood Pressure Pulse Oximetry 95 97 96 Oxygen Delivery Fraction of Inspired Oxygen 09/08/24 19:52 09/08/24 20:00 09/08/24 20:00 Temperature 99.9 F H Pulse Rate 141 H 115 H 115 H Respiratory Rate 35 H 35 H Blood Pressure 157/79 H Pulse Oximetry 97 Oxygen Delivery Fraction of Inspired Oxygen 09/08/24 20:00 09/08/24 20:00 09/08/24 20:00 Temperature Pulse Rate 110 H 115 H Respiratory Rate 35 H Blood Pressure Pulse Oximetry 97 Oxygen Delivery Mechanical Ventilation Fraction of Inspired Oxygen 35 35 09/08/24 20:00 09/08/24 20:15 09/08/24 20:26 Temperature Pulse Rate 115 H 119 H 120 H Respiratory Rate 34 H 38 H Blood Pressure Pulse Oximetry 97 98 Oxygen Delivery Fraction of Inspired Oxygen 09/08/24 20:32 09/08/24 20:33 09/08/24 20:45 Temperature Pulse Rate 107 H 108 H 114 H Respiratory Rate 30 H 30 H Blood Pressure Pulse Oximetry 97 97 97 Oxygen Delivery Mechanical Ventilation Fraction of Inspired Oxygen 09/08/24 21:00 09/08/24 21:15 09/08/24 21:30 Temperature Pulse Rate 113 H 108 H 114 H Respiratory Rate 45 H 32 H 34 H Blood Pressure Pulse Oximetry 98 98 Oxygen Delivery Fraction of Inspired Oxygen 09/08/24 21:45 09/08/24 22:00 09/08/24 22:00 Temperature Pulse Rate 113 H 117 H 117 H Respiratory Rate 26 H 29 H Blood Pressure Pulse Oximetry 97 Oxygen Delivery Fraction of Inspired Oxygen 09/08/24 22:00 09/08/24 22:00 09/08/24 22:15 Temperature 99.5 F Pulse Rate 116 H 110 H 107 H Respiratory Rate 26 H 28 H 31 H Blood Pressure 164/83 H Pulse Oximetry 97 97 97 Oxygen Delivery Fraction of Inspired Oxygen 09/08/24 22:20 09/08/24 22:30 09/08/24 22:45 Temperature Pulse Rate 108 H 117 H 107 H Respiratory Rate 32 H 28 H Blood Pressure Pulse Oximetry 97 97 97 Oxygen Delivery Mechanical Ventilation Fraction of Inspired Oxygen 09/08/24 23:00 09/08/24 23:11 09/08/24 23:11 Temperature Pulse Rate 108 H 114 H 114 H Respiratory Rate 33 H 28 H 28 H Blood Pressure Pulse Oximetry 97 Oxygen Delivery Fraction of Inspired Oxygen 09/08/24 23:15 09/08/24 23:30 09/08/24 23:45 Temperature Pulse Rate 111 H 100 96 Respiratory Rate 30 H 21 H 21 H Blood Pressure Pulse Oximetry 96 96 97 Oxygen Delivery Fraction of Inspired Oxygen 09/09/24 00:00 09/09/24 00:00 09/09/24 00:00 Temperature Pulse Rate 103 H 98 Respiratory Rate 24 H Blood Pressure Pulse Oximetry Oxygen Delivery Fraction of Inspired Oxygen 35 09/09/24 00:00 09/09/24 00:00 09/09/24 00:00 Temperature 97.8 F Pulse Rate 103 H 100 96 Respiratory Rate 24 H 28 H 23 H Blood Pressure 140/70 Pulse Oximetry 97 96 96 Oxygen Delivery Mechanical Ventilation Fraction of Inspired Oxygen 35 09/09/24 00:15 09/09/24 00:30 09/09/24 00:45 Temperature Pulse Rate 99 100 102 H Respiratory Rate 28 H 26 H 28 H Blood Pressure Pulse Oximetry 96 96 97 Oxygen Delivery Fraction of Inspired Oxygen 09/09/24 01:00 09/09/24 01:15 09/09/24 01:30 Temperature Pulse Rate 123 H 123 H 126 H Respiratory Rate 31 H 35 H 39 H Blood Pressure Pulse Oximetry 95 95 Oxygen Delivery Fraction of Inspired Oxygen 09/09/24 02:00 09/09/24 02:00 09/09/24 02:00 Temperature Pulse Rate 124 H 124 H 124 H Respiratory Rate 36 H 36 H Blood Pressure 141/72 H Pulse Oximetry 95 Oxygen Delivery Fraction of Inspired Oxygen 09/09/24 02:00 09/09/24 02:15 09/09/24 03:40 Temperature 99.5 F Pulse Rate 123 H 126 H 101 H Respiratory Rate 36 H 28 H Blood Pressure 141/72 H Pulse Oximetry 95 95 Oxygen Delivery Mechanical Ventilation Fraction of Inspired Oxygen 35 09/09/24 03:55 09/09/24 04:00 09/09/24 04:00 Temperature 98.8 F Pulse Rate 101 H 100 97 Respiratory Rate 28 H 28 H Blood Pressure 128/65 Pulse Oximetry 99 Oxygen Delivery Fraction of Inspired Oxygen 09/09/24 04:00 09/09/24 04:00 09/09/24 05:13 Temperature Pulse Rate 96 Respiratory Rate Blood Pressure Pulse Oximetry 100 99 Oxygen Delivery Mechanical Ventilation Mechanical Ventilation Fraction of Inspired Oxygen 35 35 35 09/09/24 05:49 09/09/24 06:00 09/09/24 06:00 Temperature Pulse Rate 101 H 104 H 104 H Respiratory Rate 27 H 28 H Blood Pressure 137/72 Pulse Oximetry 98 Oxygen Delivery Fraction of Inspired Oxygen 09/09/24 08:00 09/09/24 08:00 09/09/24 08:00 Temperature Pulse Rate 101 H 101 H Respiratory Rate 26 H 26 H Blood Pressure Pulse Oximetry Oxygen Delivery Fraction of Inspired Oxygen 35 09/09/24 08:00 09/09/24 08:00 09/09/24 08:00 Temperature 98.4 F Pulse Rate 105 H 102 H Respiratory Rate 26 H Blood Pressure 119/64 Pulse Oximetry 98 98 Oxygen Delivery Mechanical Ventilation Fraction of Inspired Oxygen 35 09/09/24 08:13 09/09/24 08:29 09/09/24 08:34 Temperature Pulse Rate 101 H 99 Respiratory Rate Blood Pressure Pulse Oximetry 98 Oxygen Delivery Mechanical Ventilation Fraction of Inspired Oxygen 35 35 09/09/24 10:00 09/09/24 10:00 09/09/24 10:00 Temperature Pulse Rate 116 H 118 H 120 H Respiratory Rate 26 H 26 H Blood Pressure 141/75 H Pulse Oximetry 98 Oxygen Delivery Fraction of Inspired Oxygen 09/09/24 10:24 Temperature Pulse Rate 107 H Respiratory Rate Blood Pressure Pulse Oximetry 98 Oxygen Delivery Mechanical Ventilation Fraction of Inspired Oxygen 30 Intake/Output Intake/Output: Intake & Output 09/06/24 09/07/24 09/08/24 09/09/24 23:59 23:59 23:59 23:59 Intake Total 2195.6 2168.4 4375.8 1747.5 Output Total 3200 2200 3900 1760 Balance -1004.4 -31.6 475.8 -12.5 Meds/Results Medications: Active Medications Generic Name Dose Route Start Last Admin Trade Name Freq PRN Reason Stop Dose Admin Acetaminophen 650 mg 08/29/24 18:17 Acetaminophen 325 Mg Tablet PO Q4H PRN Mild Pain (1-3) or Fever Acetaminophen 650 mg 08/30/24 00:43 08/30/24 06:56 Acetaminophen 650 Mg Suppository RECTAL 650 mg Q6H PRN Administration Mild Pain (1-3) or Fever Bumetanide 1 mg 09/08/24 09:00 09/09/24 08:33 Bumetanide Inj 1 Mg/4 Ml Vial IV PUSH 1 mg Q12H RHYS Administration Calcitonin [place] 240 units 09/07/24 10:45 09/09/24 08:43 Calcitonin [place] Inj 400 Units/2 Ml Vial SUB-Q 09/09/24 21:01 240 units Q12HR RHYS Administration Dextrose 12.5 gm 08/29/24 20:42 08/31/24 20:55 Dextrose 50% 25 Gm/50 Ml Syringe IV PUSH 12.5 gm PRN PRN Administration Hypoglycemia Protocol Enoxaparin Sodium 60 mg 09/03/24 11:35 09/09/24 10:42 Enoxaparin 60 Mg/0.6 Ml Syringe SUB-Q 60 mg Q12H RHYS Administration Glucagon 1 mg 08/29/24 20:42 Glucagon For Inj 1 Mg Vial IM PRN PRN Hypoglycemia Protocol Glucose 15 gm 08/29/24 20:42 Glucose Oral Gel 15 Gm Of Glucse In 37.5 Gm Tube PO PRN PRN Hypoglycemia Protocol Hydralazine HCl 10 mg 09/08/24 15:05 09/09/24 00:43 Hydralazine Hcl 20 Mg/Ml Vial IV PUSH 10 mg Q4HR PRN Administration Blood Pressure - High Hydrocortisone Sodium Succinate 20 mg 09/03/24 09:00 09/09/24 08:34 Hydrocortisone Sodium Succinate 100 Mg/2 Ml Vial IV PUSH 20 mg QAM RHYS Administration Dextrose 1,000 mls @ 100 mls/hr 08/29/24 20:42 Dextrose 5% 1,000 Ml IVPB PRN PRN Hypoglycemia Protocol Micafungin Sodium 100 mg/ 100 mls @ 100 mls/hr 09/04/24 10:20 09/09/24 08:35 Sodium Chloride IVPB 100 mls/hr DAILY RHYS Administration Levofloxacin/Dextrose 750 mg in 150 mls @ 100 mls/hr 09/05/24 09:00 09/09/24 10:03 Levaquin 750 Mg/D5w 150 Ml IVPB Infused Q48H RHYS Infusion Meropenem 1 gm in 100 mls @ 200 mls/hr 09/06/24 11:00 09/09/24 09:47 IVPB Infused Q12HR RHYS Infusion Dexmedetomidine HCl 400 mcg in 100 mls @ 13.41 mls/hr 09/06/24 14:00 09/09/24 10:00 Precedex 400 Mcg/100 Ml IV CONT 0.9 mcg/kg/hr .Q7H28M RHYS 13.41 mls/hr Titration Protocol 0.9 MCG/KG/HR Vancomycin HCl 1,250 mg in 250 mls @ 166.667 mls/hr 09/09/24 21:00 Vancomycin 1,250 Mg/Ns 250 Ml IVPB Q36H RHYS Dextrose 1,000 mls @ 100 mls/hr 09/08/24 09:35 09/09/24 08:32 Dextrose 5% 1,000 Ml IV CONT 100 mls/hr .Q10H RHYS Administration Potassium Phosphate 20 mmol/ 256.6667 mls @ 64.167 mls/hr 09/09/24 10:00 09/09/24 10:42 Sodium Chloride IVPB 09/09/24 13:59 64.17 mls/hr ONCE ONE Administration Insulin Aspart 3 - 6 units 09/09/24 00:00 09/09/24 05:15 Insulin Aspart (*Bkc) 100 Units/Ml SUB-Q Not Given Q6HR RHYS Protocol Metoclopramide HCl 10 mg 09/01/24 08:00 09/09/24 05:32 Metoclopramide Hcl 10 Mg/10 Ml Soln Udc FEED TUBE 10 mg Q6HR RHYS Administration Metoprolol Tartrate 25 mg 09/06/24 13:55 09/09/24 08:34 Metoprolol Tartrate 25 Mg Tablet PO 25 mg Q12HR RHYS Administration Metoprolol Tartrate 5 mg 09/08/24 11:07 09/08/24 19:52 Metoprolol Tartrate Inj 5 Mg/5 Ml Vial IV PUSH 5 mg Q6H PRN Administration HR>130 Miscellaneous Information 1 each 09/09/24 00:01 09/09/24 00:02 Please Renew Dexmedetomidine_. Per [employer] Procedure, It Will Discontinue If Not Renewed XX 10/09/24 00:00 Not Given CLARIFY RHYS Multi-Ingred Cream/Lotion/Oil/Oint 1 applic 08/30/24 10:20 09/09/24 08:35 Mineral Oil/White Petrolatum Ointment EACH EYE 1 applic Q12HR RHYS Administration Pantoprazole Sodium 40 mg 08/30/24 10:40 09/09/24 08:32 Pantoprazole Sodium Iv 40 Mg Vial IV PUSH 40 mg Q12HR RHYS Administration Prednisolone Acetate 1 drop 08/30/24 21:00 09/09/24 08:35 Prednisolone Acetate 1% Ophth 5 Ml RIGHT EYE 1 drop Q12HR RHYS Administration Sodium Chloride 10 ml 08/30/24 12:17 Central Line Flush IV PUSH PRN PRN with TPN bag changes Sodium Chloride 20 ml 08/30/24 12:17 Central Line Flush IV PUSH PRN PRN after blood draws Sodium Chloride 10 ml 09/04/24 22:00 09/09/24 04:45 Central Line Flush IV PUSH 10 ml Q8HR RHYS Administration Sodium Chloride 20 ml 09/04/24 12:30 09/09/24 04:45 Central Line Flush IV PUSH 20 ml PRN PRN Administration after blood draws Radiology Results: ITS Impressions Head CT 08/29/24 21:55 Impression: No acute intracranial hemorrhage or suspicious mass effect. Chest/Abdomen/Pelvis CT 08/29/24 21:57 IMPRESSION: Dense bilateral multifocal infiltrates, predominantly perihilar, as detailed above. No additional source is detected for patient's profound sepsis. Abdomen X-Ray 08/30/24 11:02 IMPRESSION: Bilateral pneumonia. Differential include pulmonary edema. Venous Doppler Study 09/03/24 10:50 IMPRESSION: 1. Extensive deep and superficial venous thrombosis throughout the bilateral upper lungs as detailed above. Findings were discussed with Jacinto Victor, the nurse caring for the patient, at 10:59 AM. ADDENDUM: 09/03/24 1400 CORRECTION: There is a dictation error in the impression section. With the correction capitalized this should read- Extensive deep and superficial venous thrombosis throughout the bilateral upper LIMBS as detailed above. Chest X-Ray 09/09/24 07:14 Impression: Hazy bilateral airspace disease could reflect pneumonia versus pulmonary edema. Probable underlying chronic interstitial disease. Stable support tubes. Labs Labs: Laboratory Results - last 24 hr 09/08/24 09/08/24 09/08/24 07:59 10:35 12:32 WBC RBC Hgb Hct MCV MCH MCHC RDW Plt Count MPV Immature Gran % (Auto) Neut % (Auto) Lymph % (Auto) [place] % (Auto) Eos % (Auto) Baso % (Auto) Lymph # (Auto) [place] # (Auto) Eos # (Auto) Baso # (Auto) Abs Immat Gran (auto) Absolute Neuts (auto) Absolute Nucleated RBC Total Counted Neutrophils % (Manual) Band Neutrophils % Lymphocytes % (Manual) Monocytes % (Manual) Metamyelocytes % Nucleated RBC % Abs Neuts (Manual) Abs Lymphs (Manual) Abs Monocytes (Manual) Platelet Estimate Poikilocytosis Anisocytosis Schistocytes Puncture Site ABG pH ABG pCO2 ABG pO2 ABG PO2/FiO2 Ratio ABG HCO3 ABG O2 Saturation ABG O2 Content ABG Base Excess A-a Gradient Oxyhemoglobin Carboxyhemoglobin Methemoglobin Reduced Hemoglobin Total Hemoglobin O2 Delivery Device O2 Liters/Min Minute Volume Vent Rate Vent Mode FiO2 Tidal Volume PEEP Peak Inspir Pressure Pressure Support Sodium Potassium Chloride Carbon Dioxide Anion Gap BUN Creatinine Estim Creat Clear Calc Estimated GFR Glucose POC Capillary Glucose Calcium Phosphorus Magnesium Total Bilirubin AST ALT Alkaline Phosphatase Total Protein Albumin U Random Total Protein 26 Ur Random Sodium 101 Ur Random Urea 393 Urine Creatinine 7.7 Protein/Creat Ratio 2 3.38 H Nasal MRSA (PCR) Not detected Crossmatch See Detail 09/08/24 09/08/24 09/09/24 13:44 17:56 00:07 WBC 47.8 H RBC 2.96 L Hgb 8.8 L Hct 27.3 L MCV 92.2 MCH 29.7 MCHC 32.2 RDW 20.9 H Plt Count 491 H MPV 10.7 H Immature Gran % (Auto) Neut % (Auto) Lymph % (Auto) [place] % (Auto) Eos % (Auto) Baso % (Auto) Lymph # (Auto) [place] # (Auto) Eos # (Auto) Baso # (Auto) Abs Immat Gran (auto) Absolute Neuts (auto) Absolute Nucleated RBC Total Counted Neutrophils % (Manual) Band Neutrophils % Lymphocytes % (Manual) Monocytes % (Manual) Metamyelocytes % Nucleated RBC % Abs Neuts (Manual) Abs Lymphs (Manual) Abs Monocytes (Manual) Platelet Estimate Poikilocytosis Anisocytosis Schistocytes Puncture Site ABG pH ABG pCO2 ABG pO2 ABG PO2/FiO2 Ratio ABG HCO3 ABG O2 Saturation ABG O2 Content ABG Base Excess A-a Gradient Oxyhemoglobin Carboxyhemoglobin Methemoglobin Reduced Hemoglobin Total Hemoglobin O2 Delivery Device O2 Liters/Min Minute Volume Vent Rate Vent Mode FiO2 Tidal Volume PEEP Peak Inspir Pressure Pressure Support Sodium Potassium Chloride Carbon Dioxide Anion Gap BUN Creatinine Estim Creat Clear Calc Estimated GFR Glucose POC Capillary Glucose 122 H 120 H Calcium Phosphorus Magnesium Total Bilirubin AST ALT Alkaline Phosphatase Total Protein Albumin U Random Total Protein Ur Random Sodium Ur Random Urea Urine Creatinine Protein/Creat Ratio 2 Nasal MRSA (PCR) Crossmatch 09/09/24 09/09/24 04:35 04:40 WBC 43.6 H RBC 2.76 L Hgb 8.2 L Hct 25.1 L MCV 90.9 MCH 29.7 MCHC 32.7 RDW 20.1 H Plt Count 448 H MPV 10.7 H Immature Gran % (Auto) Not Reportable Neut % (Auto) Not Reportable Lymph % (Auto) Not Reportable [place] % (Auto) Not Reportable Eos % (Auto) Not Reportable Baso % (Auto) Not Reportable Lymph # (Auto) Not Reportable [place] # (Auto) Not Reportable Eos # (Auto) Not Reportable Baso # (Auto) Not Reportable Abs Immat Gran (auto) Not Reportable Absolute Neuts (auto) Not Reportable Absolute Nucleated RBC Not Reportable Total Counted 100 Neutrophils % (Manual) 65 Band Neutrophils % 5 Lymphocytes % (Manual) 15.0 L Monocytes % (Manual) 11 H Metamyelocytes % 4 Nucleated RBC % Not Reportable Abs Neuts (Manual) 30.52 H Abs Lymphs (Manual) 6.54 H Abs Monocytes (Manual) 4.79 H Platelet Estimate Adequate Poikilocytosis 1+ Anisocytosis 1+ Schistocytes None seen Puncture Site Artline ABG pH 7.577 H* ABG pCO2 23.0 L* ABG pO2 107.4 H ABG PO2/FiO2 Ratio 3.07 ABG HCO3 20.9 L ABG O2 Saturation 98.6 ABG O2 Content 15.7 L ABG Base Excess 0.3 A-a Gradient 115.4 Oxyhemoglobin 96.9 Carboxyhemoglobin 0.9 Methemoglobin 0.3 Reduced Hemoglobin 1.9 Total Hemoglobin 11.4 L O2 Delivery Device Ventilator O2 Liters/Min Not Reportable Minute Volume Not Reportable Vent Rate 18 Vent Mode Cmv FiO2 35 Tidal Volume 370 PEEP 8 Peak Inspir Pressure Not Reportable Pressure Support Not Reportable Sodium 146 H Potassium 2.7 L* Chloride 115 H Carbon Dioxide 26 Anion Gap 5 BUN 100 H D Creatinine 0.89 Estim Creat Clear Calc 41 Estimated GFR > 60 Glucose 123 H POC Capillary Glucose Calcium 10.9 H Phosphorus 2.4 L Magnesium 1.5 L Total Bilirubin 0.4 AST 85 H ALT 30 Alkaline Phosphatase 116 Total Protein 5.4 L Albumin 2.4 L U Random Total Protein Ur Random Sodium Ur Random Urea Urine Creatinine Protein/Creat Ratio 2 Nasal MRSA (PCR) Crossmatch Quality VTE Prophylaxis VTE prophylaxis: pharmacologic ordered
[2024-09-09] MEDS: dexmedeTOMIDine 400 MCG/100 ML 400 MCG/100 ML BAG 7.45 MCG IV CONT (16:00)
[2024-09-09 16:26] LABS: Anion Gap 6 mmol/L (4-12); Blood Urea Nitrogen 84 mg/dL (7-17); Calcium 10.4 mg/dL (8.4-10.2); Carbon Dioxide 25 mmol/L (22-30); Chloride 115 mmol/L (98-107); Estimated CRCL calculation 38 ml/min; Estimated Glomerular Filt Rate 58; Glucose 126 mg/dL (65-110); Magnesium 2.5 mg/dL (1.6-2.3); Potassium 4.6 mmol/L (3.4-5.0); Sodium 146 mmol/L (137-145)
[2024-09-09] MEDS: VANCOMYCIN 1,250 MG/NS 250 ML 1,250 MG/250 ML BAG 166.67 MG IVPB (20:58)
[2024-09-10] VITALS (26 sets, daily range): BP systolic 133–158; BP diastolic 75–102; PULSE 108–131; RESP 20–43; TEMP 36.3–37.4; O2SAT 94–100
[2024-09-10] MEDS: ENOXAPARIN 60 MG/0.6 ML SYRINGE SUB-Q ×3 (00:32→23:50)
[2024-09-10] MEDS: METOCLOPRAMIDE HCL 10 MG/10 ML SOLN UDC FEED TUBE ×4 (00:32→17:49)
[2024-09-10 04:51] LABS: Alveolar/Arterial O2 Gradient 86.0 mmHg; Carboxyhemoglobin 0.8 % THb (0-2.0); Fractional Inspired Oxygen 30 %; HCO3 ABG 20.9 mEq/l (22.0-26.0); Methemoglobin ABG 0.3 %THb (0-1.5); Oxygen Content ABG 13.3 %vol (16.0-22.0); Oxygen Saturation ABG 98.2 % (95.0-100.0); PCO2 ABG 25.2 mmHg (35.0-45.0); PO2 ABG 98.3 mmHg (80.0-100.0); PO2 FiO2 Ratio Arterial Blood 3.28 %; Reduced Hemoglobin 2.4 %THb (0-5.0)
[2024-09-10] MEDS: dexmedeTOMIDine 400 MCG/100 ML 400 MCG/100 ML BAG 5.96 MCG IV CONT (04:53)
[2024-09-10 04:55] LABS: Hematocrit 25.0 % (37.0-47.0); Hemoglobin 8.0 g/dL (12.0-15.0); Mean Corpuscular HGB Conc 32.0 g/dl (32-36); Mean Corpuscular Hemoglobin 29.5 pg (26-34); Mean Corpuscular Volume 92.3 fl (80-100); Platelet Count Result 467 k/mm3 (150-375); Red Blood Count 2.71 M/mm3 (4.2-5.4); White Blood Count 44.5 K/mm3 (4.5-10.0)
[2024-09-10] MEDS: DEXTROSE 5% 1,000 ML 1,000 ML 100 ML IV CONT (04:56)
[2024-09-10 05:08] LABS: Arterial Blood Gas Ventilator rate 18 /MIN; Modified Allen's Test Pass; Site Drawn RIGHT RADIAL
[2024-09-10 05:09] LABS: Arterial Blood Gas Tidal Volume 370 ml
[2024-09-10 05:12] LABS: Alanine Aminotransferase 40 U/L (6-35); Albumin Level 2.6 g/dL (3.5-5.1); Alkaline Phosphatase 109 U/L (38-126); Anion Gap 8 mmol/L (4-12); Aspartate Amino Transferase 89 U/L (14-36); Bilirubin,Total 0.4 mg/dL (0.2-1.3); Blood Urea Nitrogen 74 mg/dL (7-17); Calcium 9.3 mg/dL (8.4-10.2); Carbon Dioxide 24 mmol/L (22-30); Chloride 113 mmol/L (98-107); Estimated CRCL calculation 36 ml/min; Estimated Glomerular Filt Rate 54; Glucose 129 mg/dL (65-110); Magnesium 1.9 mg/dL (1.6-2.3); Potassium 3.5 mmol/L (3.4-5.0); Sodium 145 mmol/L (137-145); Total Protein 5.6 g/dL (6.3-8.2)
[2024-09-10] MEDS: CENTRAL LINE FLUSH 10 ML IV PUSH ×3 (05:46→20:38)
[2024-09-10] MEDS: CENTRAL LINE FLUSH 20 ML IV PUSH (05:46)
[2024-09-10] MEDS: POTASSIUM CHLORIDE 20 MEQ PACKET (FOR LIQUID) 60 MEQ FEED TUBE (08:00)
[2024-09-10 08:01] LABS: Cytomegalovirus Culture. DETECTED
[2024-09-10] MEDS: PANTOPRAZOLE SODIUM IV 40 MG VIAL IV PUSH ×2 (09:15→20:37)
[2024-09-10] MEDS: HYDROCORTISONE SODIUM SUCCINATE 100 MG/2 ML VIAL 20 MG IV PUSH (09:16)
[2024-09-10] MEDS: BUMETANIDE INJ 1 MG/4 ML VIAL IV PUSH ×2 (09:16→20:37)
[2024-09-10] MEDS: MICAFUNGIN SODIUM 100 MG in SODIUM CHLORIDE 0.9% IV 100 ML IVPB (09:16)
[2024-09-10] MEDS: MEROPENEM 1 GM/NS 100 ML 1 GM/100 ML BAG IVPB ×2 (09:16→20:37)
[2024-09-10] MEDS: METOPROLOL TARTRATE 25 MG TABLET PO ×2 (09:16→20:36)
[2024-09-10] MEDS: MINERAL OIL/WHITE PETROLATUM OINTMENT 1 APPLIC EACH EYE ×2 (09:17→20:37)
[2024-09-10] MEDS: prednisoLONE ACETATE 1% OPHTH 5 ML 1 DROP RIGHT EYE ×2 (09:17→20:37)
--- NOTE | 2024-09-10 09:42 | P.PNINT_ITS ---
Progress Note: A&P Assessment and Plan (1) Encephalopathy: Code(s): G93.40 - Encephalopathy, unspecified Status: Acute Assessment and Plan: Patient has been off sedation for more than 72 hours, remains on Precedex infusion. Patient has not been waking up. -09/09/2024: CT scan of the brain: Large acute bilateral occipital lobe infarcts. Multifocal bilateral cerebellar infarcts. Focal bilateral thalamic acute infarcts. -neurology has been consulted -patient remains on therapeutic Lovenox for bilateral upper extremity DVTs -Neurology discussed with family and relayed that prognosis was dismal, Family will discuss among themselves and will come up with a decision (2) Acute respiratory failure: Code(s): J96.00 - Acute respiratory failure, unspecified whether with hypoxia or hypercapnia Status: Acute Assessment and Plan: Acute respiratory failure and sepsis secondary to bilateral Pseudomonas pneumonia in an immunocompromised patient who was on methotrexate and hydroxychloroquine. -ARDS physiology -08/30: Intubated for tachypnea, tachycardia, respiratory distress 08/31: bronchoscopy which did not show any LR hemorrhage or tracheobronchitis 08/31: BAL culture is growing Pseudomonas which is pansensitive. Also Milagros glabrata -08/29: Blood culture negative -08/20: sputum culture negative -09/04: Repeat blood cultures are negative PCR for influenza RSV and COVID was negative Urine Legionella negative and pneumococcal antigen negative Negative Mycoplasma IgM Patient on low-dose hydrocortisone as patient has been on chronic steroid use at home -09/04: Patient placed in prone position due to increased oxygen requirements secondary to ARDS and Pseudomonas pneumonia. Patient was also paralyzed with rocuronium and started on Nimbex infusion for ventilator synchrony 09/05: prone position, ABGs reviewed, ventilator adjusted. Patient will be placed in supine position, off Nimbex infusion 09/06: Patient was placed in supine position yesterday and remains in supine position this morning. Currently on 45% FiO2 and peep of 12 with good O2 sats. I have asked the bedside RN to start weaning sedation, start Precedex infusion if needed 09/06: . Given that patient's WBC count is elevated will switch cefepime to meropenem (09/06). Elevated WBC count could also be related to steroids 09/07: Continue meropenem and Levaquin, WBC count trending down, continue to monitor. Chest x-ray also improving 09/08: WBC count remains elevated, add vancomycin. Weaned PEEP to 8 and FiO2 to 35% 09/09: Place patient on pressure support ventilation 10/5, tolerated for about 4 hours after which she got tachypneic tachycardic was switched to CMV mode of ventilation. 09/10: Continue meropenem, vancomycin, micafungin and Levaquin 08/29 CT Chest Dense bilateral multifocal infiltrates, predominantly perihilar, as detailed above. No additional source is detected for patient's profound sepsis (3) Gastroesophageal reflux disease: Qualifiers: Esophagitis presence: esophagitis presence not specified Qualified Code(s): K21.9 - Gastro-esophageal reflux disease without esophagitis Code(s): K21.9 - Gastro-esophageal reflux disease without esophagitis Status: Acute Assessment and Plan: PPI q.12 hours (4) FRANK (acute kidney injury): Code(s): N17.9 - Acute kidney failure, unspecified Status: Acute Assessment and Plan: Patient presented with elevated creatinine which was likely secondary to sepsis. Creatinine improved with IV fluids Cut down on further IV fluids and patient was given IV fluids Urine output improved. Creatinine in normal range maintain map above 65 mmHg Monitor urine output electrolytes and creatinine Patient has received Lasix, Bumex, Diuril Obregon catheter for accurate I&Os Increased BUN and hypercalcemia -discussed with Nephrology, continue diuresis -09/07: hypercalcemia: Received calcitonin and pamidronate along with diuretic. Effect of pamidronate takes place within 72 hours, 09/09 & 09/10: Calcium levels improving, continue to monitor (5) Sepsis: Qualifiers: Sepsis acute organ dysfunction status: with acute organ dysfunction Sepsis type: sepsis due to unspecified organism Severe sepsis acute organ dysfunction type: encephalopathy Severe sepsis shock status: without septic shock Qualified Code(s): A41.9 - Sepsis, unspecified organism; R65.20 - Severe sepsis without septic shock; G93.41 - Metabolic encephalopathy Code(s): A41.9 - Sepsis, unspecified organism Status: Acute Assessment and Plan: See above (6) Immunosuppressed status: Code(s): D89.9 - Disorder involving the immune mechanism, unspecified Status: Acute Assessment and Plan: Patient was on steroids and immunosuppressants at home (7) Rheumatoid arthritis: Code(s): M06.9 - Rheumatoid arthritis, unspecified Status: Acute Assessment and Plan: Hold methotrexate and hydroxychloroquine (8) Toxic metabolic encephalopathy: Code(s): G92.8 - Other toxic encephalopathy Status: Acute Assessment and Plan: Patient presented with altered mental status and confusion which appears to be encephalopathy ache. Patient has sepsis and was on several medication including tramadol and benzodiazepine at home Head CT was negative TSH was normal Patient obviously now sedated and intubated. Patient has been on benzodiazepine and pain medications chronically and requiring significant amount of medications to keep her sedated 09/08: Patient in fentanyl, Versed Precedex infusion. Allows the bedside RN to continue to wean sedation to wake up the patient to evaluate neuro status (9) Pneumonia: Qualifiers: Laterality: bilateral Lung location: unspecified part of lung Pneumonia type: due to unspecified organism Qualified Code(s): J18.9 - Pneumonia, unspecified organism Code(s): J18.9 - Pneumonia, unspecified organism Status: Acute Assessment and Plan: See above (10) Urinary tract infection: Qualifiers: Hematuria presence: with hematuria Urinary tract infection type: site unspecified Qualified Code(s): N39.0 - Urinary tract infection, site not specified; R31.9 - Hematuria, unspecified Code(s): N39.0 - Urinary tract infection, site not specified Status: Acute Assessment and Plan: UA suggestive of UTI 08/29: Urine cultures - negative (11) Herpes labialis: Code(s): B00.1 - Herpesviral vesicular dermatitis Status: Acute Assessment and Plan: Continue acyclovir through tube (12) Hypoglycemia: Code(s): E16.2 - Hypoglycemia, unspecified Status: Acute Assessment and Plan: Resolved (13) Ileus: Code(s): K56.7 - Ileus, unspecified Status: Acute Assessment and Plan: Although bowel sounds are present patient has not been tolerating tube feeds with very high residuals. -tube feeds have been anywhere between 20 mL/hour to goal which is 40 mL/hour. The hold the tube feeds when residuals are close to 500 mL (14) Peripheral ischemia: Code(s): I99.8 - Other disorder of circulatory system Status: Acute Assessment and Plan: Patient has developed discoloration/gangrene of all 10 fingers. likely systemic presentation suggest against vascular clot, septic emboli, pseudomonal infection Radial pulses are dopplerable Blood pressure are adequate Monitor maintain mean arterial pressure above 65 mmHg -discoloration on her fingers are improving, also blistering noted on some of the fingers, continue to monitor (15) Swelling of both upper extremities: Code(s): M79.89 - Other specified soft tissue disorders Status: Acute Assessment and Plan: Likely secondary to edema as it is bilateral 09/03: Bilateral upper extremity venous Doppler showed extensive deep and superficial venous thrombosis throughout the bilateral upper extremities -continue therapeutic Lovenox IV q.12 hours (16) Anemia: Qualifiers: Anemia type: unspecified type Qualified Code(s): D64.9 - Anemia, unspecified Code(s): D64.9 - Anemia, unspecified Status: Acute Assessment and Plan: 09/08: Hemoglobin 7.0, will transfuse 1 unit of packed RBC Hemoglobin remains stable, continue to monitor, transfuse if hemoglobin < 7.0 09/02: Patient also received 1 unit of packed RBCs for hemoglobin of 6.9 (17) Electrolyte imbalance: Code(s): E87.8 - Other disorders of electrolyte and fluid balance, not elsewhere classified Status: Acute Assessment and Plan: 5 potassium has been replaced as patient is going to be getting diuresed again today (18) Tachycardia: Code(s): R00.0 - Tachycardia, unspecified Status: Acute Assessment and Plan: Metoprolol per tube and p.r.n. IV metoprolol Plan DVT prophylaxis -continue therapeutic Lovenox Stress ulcer prophylaxis -Protonix IV q.12 hours Nutrition -continue tube feeds as residuals allow, continue Reglan, Code Status - DNR Total Critical Care Time - 33 minutes Discussed with patient's , [id number]. Updated them with patient's condition and plan of care. I answered all the questions. Due to a high probability of clinically significant, life threatening deterioration, the patient required my highest level of preparedness to intervene emergently and I personally spent this critical care time directly and personally managing the patient. This critical care time included obtaining a history; examining the patient; pulse oximetry; ordering and review of studies; arranging urgent treatment with development of a management plan; evaluation of patient's response to treatment; frequent reassessment; and discussions with other providers. It was exclusive of separately billable procedures and treating other patients and teaching time. Please see Assessment and Plan section and the rest of the note for further information on patient assessment and treatment Subjective Date/time seen: 09/10/24 09:42 Interval history: 68-year-old with a history of rheumatoid arthritis, Crohn's, on immunosuppressive medications, GERD admitted to ICU for pneumonia and respiratory failure requiring intubation and mechanical ventilation Reason for consult: Acute respiratory failure, ARDS physiology, sepsis, encephalopathy, pneumonia, herpes labialis, hyperglycemia, ileus, bilateral upper extremity DVTs 09/10/2024: Patient seen and examined the ICU, remains intubated, CMV mode of ventilation, peep 8, 30% FiO2. Patient is on Precedex infusion. Tries to open her eyes but does not follow any commands. Tube feed residuals were elevated again overnight. Continues to have bowel movements. Urine output has been adequate in response to diuresis. Patient also remains on D5W infusion for hypernatremia. Creatinine is stable. Hemoglobin remains stable Review of Systems Review of Systems: ROS unobtainable: Yes unobtainable due to endotracheal tube, unobtainable due to medical condition and unobtainable due to mental status Exam Narrative: General: Pt is now sedated, intubated, in no acute distress HEENT: Pupils equal and reactive, sclera is clear, ETT in place, tongue is swo llen Lungs/Chest: Coarse breath sounds bilaterally, decreased at bases, no wheezing Cardiac: Tachycardia RRR. Normal S1 S2. No murmurs Circulation: Bilateral radial pulses dopplerable and bilateral pedal pulses are palpable, Abdomen: Decreased bowel sounds. Soft. NT. ND. Extremities: edema of bilateral upper extremities with gauze wrapped around them due to weeping : Obregon in place Neurologic: Intubated, Precedex infusion, tries to open her eyes to name but does not follow simple commands Skin: Bilateral upper extremity skin breakdown and weeping along with edema She also has several scabbed wounds on her both legs which are in various healing stage but no open or infected wound. All 10 fingers discoloration is improving, blisters on some of the fingers. Tips of the fingers are cold and gangrene. Swelling of the hands noted. No discoloration noted on the toes bilaterally, Objective Data Vital Signs Vital Signs: Vital Signs - 24 hr 09/09/24 10:00 09/09/24 10:00 09/09/24 10:00 Temperature Pulse Rate 116 H 118 H 120 H Respiratory Rate 26 H 26 H Blood Pressure 141/75 H Pulse Oximetry 98 Oxygen Delivery Fraction of Inspired Oxygen 09/09/24 10:24 09/09/24 11:00 09/09/24 11:45 Temperature 98.4 F Pulse Rate 107 H 123 H Respiratory Rate 32 H Blood Pressure Pulse Oximetry 98 Oxygen Delivery Mechanical Ventilation Fraction of Inspired Oxygen 30 09/09/24 12:00 09/09/24 12:00 09/09/24 12:00 Temperature Pulse Rate 126 H 121 H Respiratory Rate 39 H 35 H Blood Pressure 119/65 Pulse Oximetry 97 Oxygen Delivery Fraction of Inspired Oxygen 30 09/09/24 12:00 09/09/24 12:00 09/09/24 12:22 Temperature Pulse Rate 125 H Respiratory Rate 43 H Blood Pressure Pulse Oximetry 97 97 Oxygen Delivery Mechanical Ventilation Fraction of Inspired Oxygen 30 09/09/24 12:23 09/09/24 12:28 09/09/24 13:00 Temperature Pulse Rate 121 H 120 H Respiratory Rate 26 H Blood Pressure Pulse Oximetry 98 Oxygen Delivery Mechanical Ventilation Fraction of Inspired Oxygen 35 30 09/09/24 13:23 09/09/24 14:00 09/09/24 14:00 Temperature Pulse Rate 121 H 120 H 121 H Respiratory Rate 26 H 27 H Blood Pressure 133/85 Pulse Oximetry 98 98 Oxygen Delivery Mechanical Ventilation Fraction of Inspired Oxygen 30 09/09/24 14:00 09/09/24 16:00 09/09/24 16:00 Temperature Pulse Rate 120 H 131 H 131 H Respiratory Rate 30 H 30 H Blood Pressure Pulse Oximetry Oxygen Delivery Fraction of Inspired Oxygen 09/09/24 16:00 09/09/24 16:00 09/09/24 16:00 Temperature Pulse Rate 131 H Respiratory Rate 28 H Blood Pressure 138/78 Pulse Oximetry 97 97 Oxygen Delivery Mechanical Ventilation Fraction of Inspired Oxygen 30 30 09/09/24 16:00 09/09/24 17:44 09/09/24 18:00 Temperature 99.4 F Pulse Rate 126 H 131 H 129 H Respiratory Rate 31 H Blood Pressure 131/76 Pulse Oximetry 98 97 Oxygen Delivery Mechanical Ventilation Fraction of Inspired Oxygen 30 09/09/24 18:00 09/09/24 18:00 09/09/24 20:00 Temperature Pulse Rate 128 H 128 H 145 H Respiratory Rate 26 H 35 H Blood Pressure Pulse Oximetry Oxygen Delivery Fraction of Inspired Oxygen 09/09/24 20:00 09/09/24 20:00 09/09/24 20:00 Temperature Pulse Rate 139 H Respiratory Rate Blood Pressure Pulse Oximetry 98 Oxygen Delivery Mechanical Ventilation Fraction of Inspired Oxygen 30 30 09/09/24 20:00 09/09/24 20:55 09/09/24 20:57 Temperature 99.9 F H Pulse Rate 138 H 143 H 145 H Respiratory Rate 34 H Blood Pressure 158/87 H Pulse Oximetry 98 96 Oxygen Delivery Mechanical Ventilation Fraction of Inspired Oxygen 30 09/09/24 22:00 09/09/24 22:00 09/09/24 22:00 Temperature Pulse Rate 133 H 133 H 133 H Respiratory Rate 32 H 32 H Blood Pressure 139/82 Pulse Oximetry 97 Oxygen Delivery Fraction of Inspired Oxygen 09/09/24 23:25 09/10/24 00:00 09/10/24 00:00 Temperature Pulse Rate 131 H 131 H Respiratory Rate Blood Pressure Pulse Oximetry 96 96 Oxygen Delivery Mechanical Ventilation Mechanical Ventilation Fraction of Inspired Oxygen 30 30 09/10/24 00:00 09/10/24 00:00 09/10/24 00:00 Temperature 99.4 F Pulse Rate 131 H 131 H Respiratory Rate 35 H 35 H Blood Pressure 134/81 Pulse Oximetry 96 Oxygen Delivery Fraction of Inspired Oxygen 30 09/10/24 02:00 09/10/24 02:00 09/10/24 02:00 Temperature Pulse Rate 129 H 129 H 129 H Respiratory Rate 43 H 43 H Blood Pressure 146/102 H Pulse Oximetry 97 Oxygen Delivery Fraction of Inspired Oxygen 09/10/24 02:40 09/10/24 04:00 09/10/24 04:00 Temperature Pulse Rate 113 H Respiratory Rate Blood Pressure Pulse Oximetry 97 97 Oxygen Delivery Mechanical Ventilation Mechanical Ventilation Fraction of Inspired Oxygen 30 30 30 09/10/24 04:00 09/10/24 04:00 09/10/24 04:00 Temperature 98.1 F Pulse Rate 111 H 113 H 111 H Respiratory Rate 29 H 29 H Blood Pressure 134/75 Pulse Oximetry 97 Oxygen Delivery Fraction of Inspired Oxygen 09/10/24 04:53 09/10/24 04:53 09/10/24 05:12 Temperature Pulse Rate 108 H 108 H 120 H Respiratory Rate 20 20 Blood Pressure Pulse Oximetry 96 Oxygen Delivery Mechanical Ventilation Fraction of Inspired Oxygen 30 09/10/24 06:00 09/10/24 06:00 09/10/24 06:00 Temperature Pulse Rate 115 H 112 H 113 H Respiratory Rate 25 H 28 H Blood Pressure 133/78 Pulse Oximetry 97 Oxygen Delivery Fraction of Inspired Oxygen 09/10/24 06:20 09/10/24 08:00 09/10/24 08:00 Temperature 99.3 F Pulse Rate 113 H 113 H 120 H Respiratory Rate 26 H 24 H 24 H Blood Pressure 150/85 H Pulse Oximetry 97 Oxygen Delivery Fraction of Inspired Oxygen 09/10/24 08:02 09/10/24 09:16 Temperature Pulse Rate 115 H 119 H Respiratory Rate Blood Pressure Pulse Oximetry 97 Oxygen Delivery Mechanical Ventilation Fraction of Inspired Oxygen 30 Intake/Output Intake/Output: Intake & Output 09/07/24 09/08/24 09/09/24 09/10/24 23:59 23:59 23:59 23:59 Intake Total 2168.4 4375.8 3442.7 1514.2 Output Total 2200 3900 4160 1600 Balance -31.6 475.8 -717.3 -85.8 Meds/Results Medications: Active Medications Generic Name Dose Route Start Last Admin Trade Name Freq PRN Reason Stop Dose Admin Acetaminophen 650 mg 08/29/24 18:17 Acetaminophen 325 Mg Tablet PO Q4H PRN Mild Pain (1-3) or Fever Acetaminophen 650 mg 08/30/24 00:43 08/30/24 06:56 Acetaminophen 650 Mg Suppository RECTAL 650 mg Q6H PRN Administration Mild Pain (1-3) or Fever Bumetanide 1 mg 09/08/24 09:00 09/10/24 09:16 Bumetanide Inj 1 Mg/4 Ml Vial IV PUSH 1 mg Q12H RHYS Administration Dextrose 12.5 gm 08/29/24 20:42 08/31/24 20:55 Dextrose 50% 25 Gm/50 Ml Syringe IV PUSH 12.5 gm PRN PRN Administration Hypoglycemia Protocol Enoxaparin Sodium 60 mg 09/03/24 11:35 09/10/24 00:32 Enoxaparin 60 Mg/0.6 Ml Syringe SUB-Q 60 mg Q12H RHYS Administration Glucagon 1 mg 08/29/24 20:42 Glucagon For Inj 1 Mg Vial IM PRN PRN Hypoglycemia Protocol Glucose 15 gm 08/29/24 20:42 Glucose Oral Gel 15 Gm Of Glucse In 37.5 Gm Tube PO PRN PRN Hypoglycemia Protocol Hydralazine HCl 10 mg 09/08/24 15:05 09/09/24 00:43 Hydralazine Hcl 20 Mg/Ml Vial IV PUSH 10 mg Q4HR PRN Administration Blood Pressure - High Hydrocortisone Sodium Succinate 20 mg 09/03/24 09:00 09/10/24 09:16 Hydrocortisone Sodium Succinate 100 Mg/2 Ml Vial IV PUSH 20 mg QAM RHYS Administration Dextrose 1,000 mls @ 100 mls/hr 08/29/24 20:42 Dextrose 5% 1,000 Ml IVPB PRN PRN Hypoglycemia Protocol Micafungin Sodium 100 mg/ 100 mls @ 100 mls/hr 09/04/24 10:20 09/10/24 09:16 Sodium Chloride IVPB 100 mls/hr DAILY RHYS Administration Levofloxacin/Dextrose 750 mg in 150 mls @ 100 mls/hr 09/05/24 09:00 09/09/24 10:03 Levaquin 750 Mg/D5w 150 Ml IVPB Infused Q48H RHYS Infusion Meropenem 1 gm in 100 mls @ 200 mls/hr 09/06/24 11:00 09/10/24 09:16 IVPB 200 mls/hr Q12HR RHYS Administration Dexmedetomidine HCl 400 mcg in 100 mls @ 4.47 mls/hr 09/06/24 14:00 09/10/24 08:00 Precedex 400 Mcg/100 Ml IV CONT 0.3 mcg/kg/hr .[id number] RHYS 4.47 mls/hr Titration Protocol 0.3 MCG/KG/HR Vancomycin HCl 1,250 mg in 250 mls @ 166.667 mls/hr 09/09/24 21:00 09/10/24 03:08 Vancomycin 1,250 Mg/Ns 250 Ml IVPB Infused Q36H RHYS Infusion Dextrose 1,000 mls @ 100 mls/hr 09/08/24 09:35 09/10/24 04:56 Dextrose 5% 1,000 Ml IV CONT 100 mls/hr .Q10H RHYS Administration Insulin Aspart 3 - 6 units 09/09/24 00:00 09/10/24 05:19 Insulin Aspart (*Bkc) 100 Units/Ml SUB-Q Not Given Q6HR RHYS Protocol Metoclopramide HCl 10 mg 09/01/24 08:00 09/10/24 05:46 Metoclopramide Hcl 10 Mg/10 Ml Soln Udc FEED TUBE 10 mg Q6HR RHYS Administration Metoprolol Tartrate 25 mg 09/06/24 13:55 09/10/24 09:16 Metoprolol Tartrate 25 Mg Tablet PO 25 mg Q12HR RHYS Administration Metoprolol Tartrate 5 mg 09/08/24 11:07 09/08/24 19:52 Metoprolol Tartrate Inj 5 Mg/5 Ml Vial IV PUSH 5 mg Q6H PRN Administration HR>130 Miscellaneous Information 1 each 09/09/24 00:01 09/10/24 00:32 Please Renew Dexmedetomidine_. Per [employer] Procedure, It Will Discontinue If Not Renewed XX 10/09/24 00:00 1 each CLARIFY RHYS Administration Multi-Ingred Cream/Lotion/Oil/Oint 1 applic 08/30/24 10:20 09/10/24 09:17 Mineral Oil/White Petrolatum Ointment EACH EYE 1 applic Q12HR RHYS Administration Pantoprazole Sodium 40 mg 08/30/24 10:40 09/10/24 09:15 Pantoprazole Sodium Iv 40 Mg Vial IV PUSH 40 mg Q12HR RHYS Administration Prednisolone Acetate 1 drop 08/30/24 21:00 09/10/24 09:17 Prednisolone Acetate 1% Ophth 5 Ml RIGHT EYE 1 drop Q12HR RHYS Administration Sodium Chloride 10 ml 08/30/24 12:17 Central Line Flush IV PUSH PRN PRN with TPN bag changes Sodium Chloride 20 ml 08/30/24 12:17 09/10/24 05:46 Central Line Flush IV PUSH 20 ml PRN PRN Administration after blood draws Sodium Chloride 10 ml 09/04/24 22:00 09/10/24 05:46 Central Line Flush IV PUSH 10 ml Q8HR RHYS Administration Sodium Chloride 20 ml 09/04/24 12:30 09/09/24 04:45 Central Line Flush IV PUSH 20 ml PRN PRN Administration after blood draws Radiology Results: ITS Impressions Abdomen X-Ray 08/30/24 11:02 IMPRESSION: Bilateral pneumonia. Differential include pulmonary edema. Venous Doppler Study 09/03/24 10:50 IMPRESSION: 1. Extensive deep and superficial venous thrombosis throughout the bilateral upper lungs as detailed above. Findings were discussed with Jacinto Victor, the nurse caring for the patient, at 10:59 AM. ADDENDUM: 09/03/24 1400 CORRECTION: There is a dictation error in the impression section. With the correction capitalized this should read- Extensive deep and superficial venous thrombosis throughout the bilateral upper LIMBS as detailed above. Head CT 09/09/24 15:44 IMPRESSION: Large acute bilateral occipital lobe infarcts. Multifocal bilateral cerebellar infarcts. Focal bilateral thalamic acute infarcts. Results reported telephonically to Halle Browning RN by Dr. Campos at 3:48 PM on 09/09/2024. Chest/Abdomen/Pelvis CT 09/09/24 15:56 IMPRESSION: Endotracheal tube terminates 2.5 cm above the sun. Right IJ central line terminates in the right atrium. CT findings suggestive of right lower lobe pneumonia. Additional patchy bilateral groundglass and reticular opacities may represent edema or multifocal infection, to include atypical variants. Small bilateral pleural effusions. Asymmetric chest wall edema, greater on the right. Correlate for signs of infection. Subacute pelvic and sacral fractures. Chest X-Ray 09/10/24 05:55 Impression: Patchy, hazy bilateral airspace disease. Correlate for pulmonary edema versus bilateral pneumonia. Possible underlying COPD or chronic interstitial disease. Support tubes, as above. Labs Labs: Laboratory Results - last 24 hr 08/31/24 09/09/24 09/09/24 08:30 11:37 16:02 WBC RBC Hgb Hct MCV MCH MCHC RDW Plt Count MPV Puncture Site ABG pH ABG pCO2 ABG pO2 ABG PO2/FiO2 Ratio ABG HCO3 ABG O2 Saturation ABG O2 Content ABG Base Excess A-a Gradient Oxyhemoglobin Carboxyhemoglobin Methemoglobin Reduced Hemoglobin Total Hemoglobin O2 Delivery Device O2 Liters/Min Minute Volume Vent Rate Vent Mode FiO2 Tidal Volume PEEP Peak Inspir Pressure Pressure Support Sodium 146 H Potassium 4.6 Chloride 115 H Carbon Dioxide 25 Anion Gap 6 BUN 84 H D Creatinine 0.96 Estim Creat Clear Calc 38 Estimated GFR 58 L Glucose 126 H POC Capillary Glucose 131 H Calcium 10.4 H Phosphorus 4.2 Magnesium 2.5 H Total Bilirubin AST ALT Alkaline Phosphatase Total Protein Albumin CMV Culture Detected 09/09/24 09/10/24 09/10/24 18:20 00:19 04:43 WBC RBC Hgb Hct MCV MCH MCHC RDW Plt Count MPV Puncture Site Right radial ABG pH 7.536 H* ABG pCO2 25.2 L ABG pO2 98.3 ABG PO2/FiO2 Ratio 3.28 ABG HCO3 20.9 L ABG O2 Saturation 98.2 ABG O2 Content 13.3 L ABG Base Excess -0.9 A-a Gradient 86.0 Oxyhemoglobin 96.5 Carboxyhemoglobin 0.8 Methemoglobin 0.3 Reduced Hemoglobin 2.4 Total Hemoglobin 9.7 L O2 Delivery Device Ventilator O2 Liters/Min Not Reportable Minute Volume Not Reportable Vent Rate 18 Vent Mode Cmv FiO2 30 Tidal Volume 370 PEEP 8 Peak Inspir Pressure Not Reportable Pressure Support Not Reportable Sodium Potassium Chloride Carbon Dioxide Anion Gap BUN Creatinine Estim Creat Clear Calc Estimated GFR Glucose POC Capillary Glucose 142 H 124 H Calcium Phosphorus Magnesium Total Bilirubin AST ALT Alkaline Phosphatase Total Protein Albumin CMV Culture 09/10/24 04:48 WBC 44.5 H RBC 2.71 L Hgb 8.0 L Hct 25.0 L MCV 92.3 MCH 29.5 MCHC 32.0 RDW 20.6 H Plt Count 467 H MPV 10.5 H Puncture Site ABG pH ABG pCO2 ABG pO2 ABG PO2/FiO2 Ratio ABG HCO3 ABG O2 Saturation ABG O2 Content ABG Base Excess A-a Gradient Oxyhemoglobin Carboxyhemoglobin Methemoglobin Reduced Hemoglobin Total Hemoglobin O2 Delivery Device O2 Liters/Min Minute Volume Vent Rate Vent Mode FiO2 Tidal Volume PEEP Peak Inspir Pressure Pressure Support Sodium 145 Potassium 3.5 Chloride 113 H Carbon Dioxide 24 Anion Gap 8 BUN 74 H D Creatinine 1.03 H Estim Creat Clear Calc 36 Estimated GFR 54 L Glucose 129 H POC Capillary Glucose Calcium 9.3 Phosphorus 4.0 Magnesium 1.9 Total Bilirubin 0.4 AST 89 H ALT 40 H Alkaline Phosphatase 109 Total Protein 5.6 L Albumin 2.6 L CMV Culture Quality VTE Prophylaxis VTE prophylaxis: pharmacologic ordered
--- NOTE | 2024-09-10 10:30 | P.PNNP_ITS ---
Progress Note: A&P Assessment and Plan (1) Azotemia: Code(s): R79.89 - Other specified abnormal findings of blood chemistry Status: Acute Assessment and Plan: * slow improvement noted * as noted by labs on 09/05 * suspect multifactorial: * high catabolic state * steroid use * infection * critical illness * previous FRANK/ARF * no evidence of GI bleed * fractional excretion of urea and FeNa are nonprerenal by urine electrolytes * follow trend of repeat labs (2) Acute respiratory failure: Code(s): J96.00 - Acute respiratory failure, unspecified whether with hypoxia or hypercapnia Status: Acute Assessment and Plan: * secondary to bilateral Pseudomonas pneumonia in an immunocompromised patient who was on methotrexate and hydroxychloroquine. * ARDS physiology noted * bronchoscopy (08/31) which did not show any LR hemorrhage or tracheobronchitis * BAL culture is growing Pseudomonas and Milagros glabrata * PCR for influenza RSV and COVID was negative * culture data negative to date * on stress dose steroids (3) Pneumonia: Qualifiers: Laterality: bilateral Lung location: unspecified part of lung P neumonia type: due to unspecified organism Qualified Code(s): J18.9 - Pneumonia, unspecified organism Code(s): J18.9 - Pneumonia, unspecified organism Status: Acute Assessment and Plan: * as noted by recent imaging * see #2 * on antibiotics (4) Rheumatoid arthritis: Code(s): M06.9 - Rheumatoid arthritis, unspecified Status: Acute Assessment and Plan: * holding methotrexate and hydroxychloroquine (5) Hypercalcemia: Code(s): E83.52 - Hypercalcemia Status: Acute Assessment and Plan: * improving * s/p calcitonin and pamidronate * follow repeat calcium levels (6) Hypernatremia: Code(s): E87.0 - Hyperosmolality and hypernatremia Status: Acute Assessment and Plan: * slow improvement * getting D5W IVFs * follow trend of sodium (7) Toxic metabolic encephalopathy: Code(s): G92.8 - Other toxic encephalopathy Status: Acute Assessment and Plan: * presented with altered mental status and confusion * Head CT was negative * TSH was normal * calcium a bit high (see #5) * reassess when off ventilator (8) Peripheral ischemia: Code(s): I99.8 - Other disorder of circulatory system Status: Acute Assessment and Plan: * discoloration/gangrene of all 10 fingers. * likely systemic presentation suggest against vascular clot, septic emboli, pseudomonal infection * improving, also blistering noted on some of the fingers, continue to monitor (9) Swelling of both upper extremities: Code(s): M79.89 - Other specified soft tissue disorders Status: Acute Assessment and Plan: * secondary to edema as it is bilateral * however, ultrasound of UEs showed extensive deep and superficial venous thrombosis throughout the bilateral upper extremities * on Lovenox (10) Hypoglycemia: Code(s): E16.2 - Hypoglycemia, unspecified Status: Acute Assessment and Plan: * noted earlier * blood sugars are stable now Will continue to follow. L Subjective Date/time seen: 09/10/24 10:30 Interval history: Follow-up for elevated blood urea nitrogen/azotemia. Chart reviewed since last seen -- remains intubated/sedated and on mechanical ventilation; urine output improved with diuretic therapy; sodium doing better with D5W IVFs; renal function/creatinine remains stable; BUN is trending down also; no other issues/events overnight or earlier this morning. Exam 2 Narrative: General: elderly but WD/WN female intubated/sedated and on mechanical ventilation Heart: tachycardic, normal S1 and S2 Lungs: coarse upper airway noise bilaterally Abdomen: soft, nontender, + bowel sounds Extremities: bilateral edema in UEs Skin: scattered healing wounds over LEs; bilateral finger discoloration noted Objective Data Vital Signs Vital Signs: Vital Signs Temp Pulse Resp BP Pulse Ox O2 Del Method FiO2 09/10/24 10:25 120 H 97 Mechanical Ventilation 09/10/24 10:00 122 H 09/10/24 10:00 125 H 25 H 09/10/24 10:00 99.3 F 123 H 28 H 134/79 94 09/10/24 09:16 119 H 09/10/24 08:02 115 H 97 Mechanical Ventilation 09/10/24 08:00 99 Mechanical Ventilation 09/10/24 08:00 117 H 09/10/24 08:00 09/10/24 08:00 120 H 24 H 09/10/24 08:00 99.3 F 113 H 24 H 150/85 H 97 09/10/24 06:20 113 H 26 H 09/10/24 06:00 113 H 28 H 133/78 97 09/10/24 06:00 112 H 09/10/24 06:00 115 H 25 H 09/10/24 05:12 120 H 96 Mechanical Ventilation 09/10/24 04:53 108 H 09/10/24 04:53 108 H 09/10/24 04:00 111 H 29 H 09/10/24 04:00 113 H 09/10/24 04:00 98.1 F 111 H 29 H 134/75 97 09/10/24 04:00 09/10/24 04:00 97 Mechanical Ventilation 09/10/24 02:40 113 H 97 Mechanical Ventilation 09/10/24 02:00 129 H 43 H 146/102 H 97 09/10/24 02:00 129 H 09/10/24 02:00 129 H 43 H 09/10/24 00:00 131 H 35 H 09/10/24 00:00 99.4 F 131 H 35 H 134/81 96 09/10/24 00:00 09/10/24 00:00 131 H 09/10/24 00:00 96 Mechanical Ventilation 09/09/24 23:25 131 H 96 Mechanical Ventilation 09/09/24 22:00 133 H 32 H 09/09/24 22:00 133 H 32 H 139/82 97 09/09/24 22:00 133 H 09/09/24 20:57 145 H 09/09/24 20:55 143 H 96 Mechanical Ventilation 09/09/24 20:00 99.9 F H 138 H 34 H 158/87 H 98 09/09/24 20:00 139 H 09/09/24 20:00 09/09/24 20:00 98 Mechanical Ventilation 09/09/24 20:00 145 H 35 H Intake/Output Intake/Output: Intake & Output 09/07/24 09/08/24 09/09/24 09/10/24 23:59 23:59 23:59 23:59 Intake Total 2168.4 4375.8 3442.7 3724.5 Output Total 2200 3900 4160 3050 Balance -31.6 475.8 -717.3 674.5 Meds/Results Medications: Active Medications Generic Name Dose Route Start Last Admin Trade Name Freq PRN Reason Stop Dose Admin Acetaminophen 650 mg 08/29/24 18:17 Acetaminophen 325 Mg Tablet PO Q4H PRN Mild Pain (1-3) or Fever Acetaminophen 650 mg 08/30/24 00:43 08/30/24 06:56 Acetaminophen 650 Mg Suppository RECTAL 650 mg Q6H PRN Administration Mild Pain (1-3) or Fever Bumetanide 1 mg 09/08/24 09:00 09/10/24 09:16 Bumetanide Inj 1 Mg/4 Ml Vial IV PUSH 1 mg Q12H RHYS Administration Dextrose 12.5 gm 08/29/24 20:42 08/31/24 20:55 Dextrose 50% 25 Gm/50 Ml Syringe IV PUSH 12.5 gm PRN PRN Administration Hypoglycemia Protocol Enoxaparin Sodium 60 mg 09/03/24 11:35 09/10/24 11:33 Enoxaparin 60 Mg/0.6 Ml Syringe SUB-Q 60 mg Q12H RHYS Administration Glucagon 1 mg 08/29/24 20:42 Glucagon For Inj 1 Mg Vial IM PRN PRN Hypoglycemia Protocol Glucose 15 gm 08/29/24 20:42 Glucose Oral Gel 15 Gm Of Glucse In 37.5 Gm Tube PO PRN PRN Hypoglycemia Protocol Hydralazine HCl 10 mg 09/08/24 15:05 09/09/24 00:43 Hydralazine Hcl 20 Mg/Ml Vial IV PUSH 10 mg Q4HR PRN Administration Blood Pressure - High Hydrocortisone Sodium Succinate 20 mg 09/03/24 09:00 09/10/24 09:16 Hydrocortisone Sodium Succinate 100 Mg/2 Ml Vial IV PUSH 20 mg QAM RHYS Administration Dextrose 1,000 mls @ 100 mls/hr 08/29/24 20:42 Dextrose 5% 1,000 Ml IVPB PRN PRN Hypoglycemia Protocol Micafungin Sodium 100 mg/ 100 mls @ 100 mls/hr 09/04/24 10:20 09/10/24 10:16 Sodium Chloride IVPB Infused DAILY RHYS Infusion Levofloxacin/Dextrose 750 mg in 150 mls @ 100 mls/hr 09/05/24 09:00 09/09/24 10:03 Levaquin 750 Mg/D5w 150 Ml IVPB Infused Q48H RHYS Infusion Meropenem 1 gm in 100 mls @ 200 mls/hr 09/06/24 11:00 09/10/24 09:46 IVPB Infused Q12HR RHYS Infusion Dexmedetomidine HCl 400 mcg in 100 mls @ 4.47 mls/hr 09/06/24 14:00 09/10/24 16:00 Precedex 400 Mcg/100 Ml IV CONT 0.3 mcg/kg/hr .[id number] RHYS 4.47 mls/hr Titration Protocol 0.3 MCG/KG/HR Vancomycin HCl 1,250 mg in 250 mls @ 166.667 mls/hr 09/09/24 21:00 09/10/24 03:08 Vancomycin 1,250 Mg/Ns 250 Ml IVPB Infused Q36H RHYS Infusion Insulin Aspart 3 - 6 units 09/09/24 00:00 09/10/24 17:50 Insulin Aspart (*Bkc) 100 Units/Ml SUB-Q Not Given Q6HR RHYS Protocol Metoclopramide HCl 10 mg 09/01/24 08:00 09/10/24 17:49 Metoclopramide Hcl 10 Mg/10 Ml Soln Udc FEED TUBE 10 mg Q6HR RHYS Administration Metoprolol Tartrate 25 mg 09/06/24 13:55 09/10/24 09:16 Metoprolol Tartrate 25 Mg Tablet PO 25 mg Q12HR RHYS Administration Metoprolol Tartrate 5 mg 09/08/24 11:07 09/08/24 19:52 Metoprolol Tartrate Inj 5 Mg/5 Ml Vial IV PUSH 5 mg Q6H PRN Administration HR>130 Miscellaneous Information 1 each 09/09/24 00:01 09/10/24 00:32 Please Renew Dexmedetomidine_. Per [employer] Procedure, It Will Discontinue If Not Renewed XX 10/09/24 00:00 1 each CLARIFY RHYS Administration Multi-Ingred Cream/Lotion/Oil/Oint 1 applic 08/30/24 10:20 09/10/24 09:17 Mineral Oil/White Petrolatum Ointment EACH EYE 1 applic Q12HR RHYS Administration Pantoprazole Sodium 40 mg 08/30/24 10:40 09/10/24 09:15 Pantoprazole Sodium Iv 40 Mg Vial IV PUSH 40 mg Q12HR RHYS Administration Prednisolone Acetate 1 drop 08/30/24 21:00 09/10/24 09:17 Prednisolone Acetate 1% Ophth 5 Ml RIGHT EYE 1 drop Q12HR RHYS Administration Sodium Chloride 10 ml 08/30/24 12:17 Central Line Flush IV PUSH PRN PRN with TPN bag changes Sodium Chloride 20 ml 08/30/24 12:17 09/10/24 05:46 Central Line Flush IV PUSH 20 ml PRN PRN Administration after blood draws Sodium Chloride 10 ml 09/04/24 22:00 09/10/24 15:00 Central Line Flush IV PUSH 10 ml Q8HR RHYS Administration Sodium Chloride 20 ml 09/04/24 12:30 09/09/24 04:45 Central Line Flush IV PUSH 20 ml PRN PRN Administration after blood draws Radiology Results: ITS Impressions Abdomen X-Ray 08/30/24 11:02 IMPRESSION: Bilateral pneumonia. Differential include pulmonary edema. Venous Doppler Study 09/03/24 10:50 IMPRESSION: 1. Extensive deep and superficial venous thrombosis throughout the bilateral upper lungs as detailed above. Findings were discussed with Jacinto Victor, the nurse caring for the patient, at 10:59 AM. ADDENDUM: 09/03/24 1400 CORRECTION: There is a dictation error in the impression section. With the correction capitalized this should read- Extensive deep and superficial venous thrombosis throughout the bilateral upper LIMBS as detailed above. Head CT 09/09/24 15:44 IMPRESSION: Large acute bilateral occipital lobe infarcts. Multifocal bilateral cerebellar infarcts. Focal bilateral thalamic acute infarcts. Results reported telephonically to Halle Browning RN by Dr. Campos at 3:48 PM on 09/09/2024. Chest/Abdomen/Pelvis CT 09/09/24 15:56 IMPRESSION: Endotracheal tube terminates 2.5 cm above the sun. Right IJ central line terminates in the right atrium. CT findings suggestive of right lower lobe pneumonia. Additional patchy bilateral groundglass and reticular opacities may represent edema or multifocal infection, to include atypical variants. Small bilateral pleural effusions. Asymmetric chest wall edema, greater on the right. Correlate for signs of infection. Subacute pelvic and sacral fractures. Chest X-Ray 09/10/24 05:55 Impression: Patchy, hazy bilateral airspace disease. Correlate for pulmonary edema versus bilateral pneumonia. Possible underlying COPD or chronic interstitial disease. Support tubes, as above. Labs Labs: Laboratory Tests 09/10/24 04:48 09/10/24 04:48 Calcium 9.3 Phosphorus 4.0 Magnesium 1.9 Total Bilirubin 0.4 AST 89 H ALT 40 H Alkaline Phosphatase 109 Total Protein 5.6 L Albumin 2.6 L Microbiology 09/04/24 13:03 Blood Blood Culture - Final 09/04/24 13:03 Blood Blood Culture - Final
--- NOTE | 2024-09-10 11:25 | PCFNICU ---
ICU Rounding Note: Pt current nutrition is Vital AF 1.2 at 40 ml/hr with Eldon BID. Last recorded weight is 61.3 kg, up from 50.1 kg. Bowel Motility: FMS Labs Reviewed: Glu 129, Cr 1.03, BUN 74, Alb 2.6, Hct 25.0, Hgb 8.0 Meds Noted: Precedex, Reglan, Protonix,Bumex. Skin: stage III pressure ulcer-coccyx Additional Notes:Patient remains on mechanical vent. Tube feedings currently at 40 ml/hr of Vital AF 1.2. Elevated residuals reported over the weekend. Flush remains at 30 ml q 4 hours. Total Nutrition with Eldon BID: 1216 kcal/71 gm protein/714 ml water. Currently not meeting caloric needs. Would recommend increasing to 50 ml/hr if able to tolerate 40 ml/hr. Neurology consult. Following daily in ICU rounds. Monitoring tube feeding orders, weights, labs, tolerance, plan of care, vent settings, vitals Follow up Tuesday/Tuesday. Daily rounds.
[2024-09-10 11:53] LABS: Angiotensin Converting Enzyme. 46 U/L (9-67)
--- NOTE | 2024-09-10 12:35 | P.CONNEU_ITS ---
Assessment and Plan Assessment and plan (1) Cerebrovascular accident (CVA) involving right cerebral hemisphere: Code(s): I63.9 - Cerebral infarction, unspecified Status: Acute Plan 1. Encephalopathic with persistence of the comatose status and documentation of bihemispheric stroke involving bilateral occipital lobes and bilateral thalami raising the possibility of posterior circulation compromise 2 persistence of the leukocytosis on the CBCs even though patient is covered with antibiotics as documented. 2. Chances of functional recovery are minimal, daughter and I will prefer her to at home and she wants to put her on hospice, her son is not here, I explained to her decision can be made while she is here in the hospital about the further stoppage of the treatment and she wants to take her home for the hospice his bed is started here. I did not order any specific investigation if any further question arises please do not hesitate to contact me. Consult date: 09/10/24 HPI: Ina Garcia is a 68 year old femaleHas [facility] where she presented with a change in the mental status in addition the history of illness over 1 week. For which she had been receiving the antibiotics and described as skin infection. She was intermittently following the commands in the emergency room but was unable to answer the questions appropriately. She has ongoing history of 1. Rheumatoid arthritis 2. Glaucoma 3. Crohn's disease 4. Osteoporosis and 5. Cirrhotic arthritis as well. It was documented she was taking multiple medication which included Celebrex 200mg twice a day, Nexium 40mg daily, and she was reportedly allergic to codeine and adalimumab. She had history of no alcohol consumption and also no smoking. On initial evaluation she was found to be tachycardic with temperature of 100.9? her CBC was normal platelet count of 495, BMP was normal, lactic acid was 8.4, was 1.53 AST 122 ALT 54 she has 3+ hematuria and she was negative for the influenza a B RSV and [id number] chest x-ray was compatible with severe multifocal pneumonia versus the possibility of pulmonary edema EKG was without atrial fibrillation. Because of the herpes simplex outbreak on the labia she was treated with the acyclovir as well. During this hospitalization she has had echocardiogram which revealed only trace aortic valve regurgitation, mitral valve mildly calcified annulus and mild tricuspid regurgitation. Has been treated for acute respiratory failure in the intensive care. She has been seen by the metal bonding press operator as well for azotemia. Neurology consultation has been obtained because the persistence of the encephalopathic state. Head CT scan was obtained on which revealed dilatation of the ventricles in proportion to the sulcal prominence but no epidural or subdural this particular study was done on August 29, 2024. Repeat CT scan of the head on 09/06 revealed large acute bilateral occipital lobe infarction with multifocal bilateral cerebellar infarct as well also involving the bilateral thalami. At this stage neuro consultation has been obtained discussed with the family about the ongoing treatment. Daughter in-law happened to be in the room who mentioned that she will prefer her to at home. She is ready to place her on the hospice but she would prefer at home. Review of Systems 2 Review of Systems: All systems reviewed & are unremarkable except as noted in HPI and below PMFSH Past Medical History Medical History Depression Anxiety Hypovitaminosis D Chronic ethmoidal sinusitis Left knee DJD Chronic right shoulder pain Left shoulder pain Anemia Immunosuppressed status Osteoarthritis Glaucoma Iron deficiency anemia Crohn's disease Gastroesophageal reflux disease Mixed hyperlipidemia Osteoporosis Psoriatic arthritis RLS (restless legs syndrome) Rheumatoid arthritis Surgical History Surgical History Status post cataract extraction of both eyes with insertion of intraocular lens S/P total knee arthroplasty LT TKA 05/18/23 Status post bilateral total hip replacement Status post ankle fusion With subsequent hardware removal and redo. Status post rotator cuff repair Bilateral. Status post cholecystectomy History of section Status post total right knee replacement History of temporal artery biopsy In October 2016. No pathologic abnormalities noted. Family History Family History Mother Family history of osteoporosis Cerebrovascular accident Family history of Alzheimer's disease Family history of coronary artery disease Acute myocardial infarction Family history of malignant melanoma Family history of malignant neoplasm of ovary Heart disease Father Family history of coronary artery disease Family history of heart disease in male family member before age 55 Family history of lung cancer, Onset Age: 48 Sibling Family history of lung cancer Family history of malignant melanoma Family history of malignant neoplasm of urinary bladder Heart disease Sibling Cancer Heart disease Other Family history of malignant neoplasm Hypertension Social History Social History Social History: The patient lives in [place] with her ex . They have been since 2006 but still live in the same home. They have 2 dogs that are mostly outside. 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 She is a lifelong nonsmoker and denies alcohol and drug abuse. She and her have 1 son. Code status: Full code Surrogate decision maker: Ex- and Debra (daughter in-law) Smoking status: Never smoker Additional smoking assessment comments: DENIES ANY FORM OF TOBACCO USE Alcohol intake: current Alcohol use details: Rare alcohol use once or twice a year Substance use: never Substance use type: does not use Do You Feel Safe in your Home?: Yes Lack of Transportation: No Lack of Food: Never True Current Housing: I Have Housing Concerned About Future Housing: No Difficulty Paying Gas/Electric Bills: No Difficulty Paying for Meds: No Currently Unemployed: No Education: Don't Know Difficulty w/ Childcare or Family Care: No Living arrangements: with family Occupation/Education: retired Gender identity (if verbalized by the patient): Female Sexual Orientation (if Verbalized by the Patient): Straight or Heterosexual Spiritual care concerns: No Agree to blood products: Yes Meds Home Medications and Allergies Home Medications ?Medication ?Instructions ?Recorded ?Confirmed ?Type ascorbic acid (vitamin C) 1,000 mg 1 gm PO DAILY 04/26/19 08/30/24 History tablet celecoxib 200 mg capsule 200 mg PO BID 04/26/19 08/30/24 History cholecalciferol (vitamin D3) 25 1,000 unit PO DAILY 04/26/19 08/30/24 History mcg (1,000 unit) capsule ferrous sulfate 325 mg (65 mg 325 mg PO DAILY 04/26/19 08/30/24 History iron) tablet (Feosol) folic acid 1 mg tablet 1 mg PO DAILY 04/26/19 08/30/24 History lactobacillus combination no.8 3 3,000 mmu cells PO DAILY 04/26/19 08/30/24 History billion cell capsule (Adult Probiotic) multivitamin 1 tablet PO DAILY 04/26/19 08/30/24 History magnesium 250 mg tablet 250 mg PO DAILY 03/04/20 08/30/24 History zinc 50 mg tablet 50 mg PO DAILY 03/04/20 08/30/24 History methotrexate sodium 2.5 mg tablet 2.5 mg PO .COMPLEX 01/21/21 08/30/24 History esomeprazole magnesium 40 mg 40 mg PO DAILY 02/03/22 08/30/24 History capsule,delayed release (Nexium) melatonin 10 mg capsule 10 mg PO DAILY PRN Insomnia 08/26/22 08/30/24 History tramadol 50 mg tablet 50 mg PO Q6H PRN Pain 01/27/23 08/30/24 History calcium 600 mg (as 1 tablet PO DAILY 05/04/23 08/30/24 History carbonate)-vitamin D3 10 mcg (400 unit) tablet (Calcium 600 + D(3)) hydroxychloroquine 200 mg tablet 200 mg PO DAILY 05/04/23 08/30/24 History sucralfate 1 gram tablet 1 g PO BID 05/04/23 08/30/24 History dextromethorphan-guaifenesin 30 See Rx Instructions PO Q12H PRN 06/21/23 08/30/24 Rx mg-600 mg tablet extended cough #30 tabs hr (Mucinex DM) fexofenadine 60 mg tablet (Glendy 60 mg PO Q12H 09/05/23 08/30/24 History Allergy) fluticasone propionate 50 1 spray intranasal PRN PRN Allergy 10/26/23 08/30/24 Rx mcg/actuation nasal Symptoms #16 grams spray,suspension prednisolone sodium phosphate 1 % 1 drp RIGHT EYE Q12H concern for 12/27/23 08/30/24 Rx eye drops glaucoma #10 mL escitalopram oxalate 20 mg tablet See Rx Instructions .Route 05/29/24 08/30/24 Rx .COMPLEX #90 tabs upadacitinib 15 mg tablet,extended 15 mg PO DAILY 05/29/24 08/30/24 History release 24 hr (Rinvoq) betamethasone valerate 0.1 % 1 applic topical BID #15 grams 07/19/24 08/30/24 Rx topical ointment alprazolam 0.5 mg tablet 0.5 mg PO BID PRN anxiety #60 tabs 07/30/24 08/30/24 Rx doxycycline hyclate 100 mg tablet 100 mg PO BID 08/30/24 08/30/24 History Allergies Allergy/AdvReac Type Severity Reaction Status Date / Time adalimumab Allergy Mild Itching Verified 08/07/24 11:55 codeine AdvReac Mild Itching Verified 08/07/24 11:55 Vital Signs Vital Signs - 24 hr 09/09/24 13:00 09/09/24 13:23 09/09/24 14:00 Temperature Pulse Rate 120 H 121 H 120 H Respiratory Rate 26 H 26 H Blood Pressure Pulse Oximetry 98 Oxygen Delivery Mechanical Ventilation Fraction of Inspired Oxygen 30 09/09/24 14:00 09/09/24 14:00 09/09/24 16:00 Temperature Pulse Rate 121 H 120 H 131 H Respiratory Rate 27 H 30 H Blood Pressure 133/85 Pulse Oximetry 98 Oxygen Delivery Fraction of Inspired Oxygen 09/09/24 16:00 09/09/24 16:00 09/09/24 16:00 Temperature Pulse Rate 131 H 131 H Respiratory Rate 30 H 28 H Blood Pressure 138/78 Pulse Oximetry 97 Oxygen Delivery Fraction of Inspired Oxygen 30 09/09/24 16:00 09/09/24 16:00 09/09/24 17:44 Temperature Pulse Rate 126 H 131 H Respiratory Rate Blood Pressure Pulse Oximetry 97 98 Oxygen Delivery Mechanical Ventilation Mechanical Ventilation Fraction of Inspired Oxygen 30 09/09/24 18:00 09/09/24 18:00 09/09/24 18:00 Temperature 37.4 C Pulse Rate 129 H 128 H 128 H Respiratory Rate 31 H 26 H Blood Pressure 131/76 Pulse Oximetry 97 Oxygen Delivery Fraction of Inspired Oxygen 09/09/24 20:00 09/09/24 20:00 09/09/24 20:00 Temperature Pulse Rate 145 H Respiratory Rate 35 H Blood Pressure Pulse Oximetry 98 Oxygen Delivery Mechanical Ventilation Fraction of Inspired Oxygen 30 09/09/24 20:00 09/09/24 20:00 09/09/24 20:55 Temperature 37.7 C H Pulse Rate 139 H 138 H 143 H Respiratory Rate 34 H Blood Pressure 158/87 H Pulse Oximetry 98 96 Oxygen Delivery Mechanical Ventilation Fraction of Inspired Oxygen 30 09/09/24 20:57 09/09/24 22:00 09/09/24 22:00 Temperature Pulse Rate 145 H 133 H 133 H Respiratory Rate 32 H Blood Pressure 139/82 Pulse Oximetry 97 Oxygen Delivery Fraction of Inspired Oxygen 09/09/24 22:00 09/09/24 23:25 09/10/24 00:00 Temperature Pulse Rate 133 H 131 H Respiratory Rate 32 H Blood Pressure Pulse Oximetry 96 96 Oxygen Delivery Mechanical Ventilation Mechanical Ventilation Fraction of Inspired Oxygen 30 30 09/10/24 00:00 09/10/24 00:00 09/10/24 00:00 Temperature 37.4 C Pulse Rate 131 H 131 H Respiratory Rate 35 H Blood Pressure 134/81 Pulse Oximetry 96 Oxygen Delivery Fraction of Inspired Oxygen 30 09/10/24 00:00 09/10/24 02:00 09/10/24 02:00 Temperature Pulse Rate 131 H 129 H 129 H Respiratory Rate 35 H 43 H Blood Pressure Pulse Oximetry Oxygen Delivery Fraction of Inspired Oxygen 09/10/24 02:00 09/10/24 02:40 09/10/24 04:00 Temperature Pulse Rate 129 H 113 H Respiratory Rate 43 H Blood Pressure 146/102 H Pulse Oximetry 97 97 97 Oxygen Delivery Mechanical Ventilation Mechanical Ventilation Fraction of Inspired Oxygen 30 09/10/24 04:00 09/10/24 04:00 09/10/24 04:00 Temperature 36.7 C Pulse Rate 111 H 113 H Respiratory Rate 29 H Blood Pressure 134/75 Pulse Oximetry 97 Oxygen Delivery Fraction of Inspired Oxygen 30 09/10/24 04:00 09/10/24 04:53 09/10/24 04:53 Temperature Pulse Rate 111 H 108 H 108 H Respiratory Rate 29 H 20 20 Blood Pressure Pulse Oximetry Oxygen Delivery Fraction of Inspired Oxygen 09/10/24 05:12 09/10/24 06:00 09/10/24 06:00 Temperature Pulse Rate 120 H 115 H 112 H Respiratory Rate 25 H Blood Pressure Pulse Oximetry 96 Oxygen Delivery Mechanical Ventilation Fraction of Inspired Oxygen 30 09/10/24 06:00 09/10/24 06:20 09/10/24 08:00 Temperature 37.4 C Pulse Rate 113 H 113 H 113 H Respiratory Rate 28 H 26 H 24 H Blood Pressure 133/78 150/85 H Pulse Oximetry 97 97 Oxygen Delivery Fraction of Inspired Oxygen 09/10/24 08:00 09/10/24 08:00 09/10/24 08:02 Temperature Pulse Rate 120 H 115 H Respiratory Rate 24 H Blood Pressure Pulse Oximetry 97 Oxygen Delivery Mechanical Ventilation Fraction of Inspired Oxygen 30 30 09/10/24 09:16 09/10/24 10:00 09/10/24 10:00 Temperature 37.4 C Pulse Rate 119 H 123 H 125 H Respiratory Rate 28 H 25 H Blood Pressure 134/79 Pulse Oximetry 94 Oxygen Delivery Fraction of Inspired Oxygen 09/10/24 10:25 Temperature Pulse Rate 120 H Respiratory Rate Blood Pressure Pulse Oximetry 97 Oxygen Delivery Mechanical Ventilation Fraction of Inspired Oxygen 30 Exam 2 Narrative: Exam today reveals her to be unresponsive to verbal commands, on simple sternal rub she does not open her eyes , head normocephalic with no bruit she does not open her eyes does not follow the visual stimuli and her extra ocular movements a spontaneously full in horizontal gaze were somewhat deviated downward, facial grimaces absent, tongue in the oral cavity she was unable to move her tongue, no spontaneous movements of the upper and lower extremities were visualized and on deep sternal rub she flinched but did not move her upper or lower extremities, plantar responses were upgoing, her heart was regular, lungs with rhonchi, Results Labs 09/10/24 04:48 09/10/24 04:48 Labs: Short CBC 09/10/24 Range/Units 04:48 WBC 44.5 H (4.5-10.0) K/mm3 Hgb 8.0 L (12.0-15.0) g/dL Hct 25.0 L (37.0-47.0) % Plt Count 467 H (150-375) k/mm3 BMP 09/09/24 09/10/24 16:02 04:48 Sodium 146 H 145 Potassium 4.6 3.5 Chloride 115 H 113 H Carbon Dioxide 25 24 BUN 84 H D 74 H D Creatinine 0.96 1.03 H Glucose 126 H 129 H Calcium 10.4 H 9.3 Liver Function 09/10/24 Range/Units 04:48 Total Bilirubin 0.4 (0.2-1.3) mg/dL AST 89 H (14-36) U/L ALT 40 H (6-35) U/L Alkaline Phosphatase 109 (38-126) U/L Albumin 2.6 L (3.5-5.1) g/dL
[2024-09-10 13:28] LABS: Calcium/Creatinine Ratio, Ur 1000 mg/g creat (10-320); Urine Calcium, Random 12.0 mg/dL; Urine Creatinine, Random 12 mg/dL (20-275)
--- NOTE | 2024-09-10 14:27 | PM.IMPN ---
Progress Note: A&P Assessment and Plan (1) Encephalopathy: Code(s): G93.40 - Encephalopathy, unspecified Status: Acute Assessment and Plan: Patient has been off sedation for more than 72 hours, remains on Precedex infusion. Patient has not been waking up. -09/09/2024: CT scan of the brain: Large acute bilateral occipital lobe infarcts. Multifocal bilateral cerebellar infarcts. Focal bilateral thalamic acute infarcts. -neurology has been consulted -patient remains on therapeutic Lovenox for bilateral upper extremity DVTs -Neurology discussed with family and relayed that prognosis was dismal, Family will discuss among themselves and will come up with a decision for transition to comfort care (2) Acute respiratory failure: Code(s): J96.00 - Acute respiratory failure, unspecified whether with hypoxia or hypercapnia Status: Acute Assessment and Plan: Acute respiratory failure and sepsis secondary to bilateral Pseudomonas pneumonia in an immunocompromised patient who was on methotrexate and hydroxychloroquine. -ARDS physiology -08/30: Intubated for tachypnea, tachycardia, respiratory distress 08/31: bronchoscopy which did not show any LR hemorrhage or tracheobronchitis 08/31: BAL culture is growing Pseudomonas which is pansensitive. Also Milagros glabrata -08/29: Blood culture negative -08/20: sputum culture negative -09/04: Repeat blood cultures are negative PCR for influenza RSV and COVID was negative Urine Legionella negative and pneumococcal antigen negative Negative Mycoplasma IgM Patient on low-dose hydrocortisone as patient has been on chronic steroid use at home -09/04: Patient placed in prone position due to increased oxygen requirements secondary to ARDS and Pseudomonas pneumonia. Patient was also paralyzed with rocuronium and started on Nimbex infusion for ventilator synchrony 09/05: prone position, ABGs reviewed, ventilator adjusted. Patient will be placed in supine position, off Nimbex infusion 09/06: Patient was placed in supine position yesterday and remains in supine position this morning. Currently on 45% FiO2 and peep of 12 with good O2 sats. I have asked the bedside RN to start weaning sedation, start Precedex infusion if needed 09/06: . Given that patient's WBC count is elevated will switch cefepime to meropenem (09/06). Elevated WBC count could also be related to steroids 09/07: Continue meropenem and Levaquin, WBC count trending down, continue to monitor. Chest x-ray also improving 09/08: WBC count remains elevated, add vancomycin. Weaned PEEP to 8 and FiO2 to 35% 09/09: Place patient on pressure support ventilation 10/5, tolerated for about 4 hours after which she got tachypneic tachycardic was switched to CMV mode of ventilation. 09/10: Continue meropenem, vancomycin, micafungin and Levaquin 08/29 CT Chest Dense bilateral multifocal infiltrates, predominantly perihilar, as detailed above. No additional source is detected for patient's profound sepsis (3) Gastroesophageal reflux disease: Qualifiers: Esophagitis presence: esophagitis presence not specified Qualified Code(s): K21.9 - Gastro-esophageal reflux disease without esophagitis Code(s): K21.9 - Gastro-esophageal reflux disease without esophagitis Status: Acute Assessment and Plan: PPI q.12 hours (4) FRANK (acute kidney injury): Code(s): N17.9 - Acute kidney failure, unspecified Status: Acute Assessment and Plan: Patient presented with elevated creatinine which was likely secondary to sepsis. Creatinine improved with IV fluids Cut down on further IV fluids and patient was given IV fluids Urine output improved. Creatinine in normal range maintain map above 65 mmHg Monitor urine output electrolytes and creatinine Patient has received Lasix, Bumex, Diuril Obregon catheter for accurate I&Os Increased BUN and hypercalcemia -discussed with Nephrology, continue diuresis -09/07: hypercalcemia: Received calcitonin and pamidronate along with diuretic. Effect of pamidronate takes place within 72 hours, 09/09 & 09/10: Calcium levels improving, continue to monitor (5) Sepsis: Qualifiers: Sepsis acute organ dysfunction status: with acute organ dysfunction Sepsis type: sepsis due to unspecified organism Severe sepsis acute organ dysfunction type: encephalopathy Severe sepsis shock status: without septic shock Qualified Code(s): A41.9 - Sepsis, unspecified organism; R65.20 - Severe sepsis without septic shock; G93.41 - Metabolic encephalopathy Code(s): A41.9 - Sepsis, unspecified organism Status: Acute Assessment and Plan: See above (6) Immunosuppressed status: Code(s): D89.9 - Disorder involving the immune mechanism, unspecified Status: Acute Assessment and Plan: Patient was on steroids and immunosuppressants at home (7) Rheumatoid arthritis: Code(s): M06.9 - Rheumatoid arthritis, unspecified Status: Acute Assessment and Plan: Hold methotrexate and hydroxychloroquine (8) Toxic metabolic encephalopathy: Code(s): G92.8 - Other toxic encephalopathy Status: Acute Assessment and Plan: Patient presented with altered mental status and confusion which appears to be encephalopathy ache. Patient has sepsis and was on several medication including tramadol and benzodiazepine at home Head CT was negative TSH was normal Patient obviously now sedated and intubated. Patient has been on benzodiazepine and pain medications chronically and requiring significant amount of medications to keep her sedated 09/08: Patient in fentanyl, Versed Precedex infusion. Allows the bedside RN to continue to wean sedation to wake up the patient to evaluate neuro status (9) Pneumonia: Qualifiers: Laterality: bilateral Lung location: unspecified part of lung Pneumonia type: due to unspecified organism Qualified Code(s): J18.9 - Pneumonia, unspecified organism Code(s): J18.9 - Pneumonia, unspecified organism Status: Acute Assessment and Plan: See above (10) Urinary tract infection: Qualifiers: Hematuria presence: with hematuria Urinary tract infection type: site unspecified Qualified Code(s): N39.0 - Urinary tract infection, site not specified; R31.9 - Hematuria, unspecified Code(s): N39.0 - Urinary tract infection, site not specified Status: Acute Assessment and Plan: UA suggestive of UTI 08/29: Urine cultures - negative (11) Herpes labialis: Code(s): B00.1 - Herpesviral vesicular dermatitis Status: Acute Assessment and Plan: Continue acyclovir through tube (12) Hypoglycemia: Code(s): E16.2 - Hypoglycemia, unspecified Status: Acute Assessment and Plan: Resolved (13) Ileus: Code(s): K56.7 - Ileus, unspecified Status: Acute Assessment and Plan: Although bowel sounds are present patient has not been tolerating tube feeds with very high residuals. -tube feeds have been anywhere between 20 mL/hour to goal which is 40 mL/hour. The hold the tube feeds when residuals are close to 500 mL (14) Peripheral ischemia: Code(s): I99.8 - Other disorder of circulatory system Status: Acute Assessment and Plan: Patient has developed discoloration/gangrene of all 10 fingers. likely systemic presentation suggest against vascular clot, septic emboli, pseudomonal infection Radial pulses are dopplerable Blood pressure are adequate Monitor maintain mean arterial pressure above 65 mmHg -discoloration on her fingers are improving, also blistering noted on some of the fingers, continue to monitor (15) Swelling of both upper extremities: Code(s): M79.89 - Other specified soft tissue disorders Status: Acute Assessment and Plan: Likely secondary to edema as it is bilateral 09/03: Bilateral upper extremity venous Doppler showed extensive deep and superficial venous thrombosis throughout the bilateral upper extremities -continue therapeutic Lovenox IV q.12 hours (16) Anemia: Qualifiers: Anemia type: unspecified type Qualified Code(s): D64.9 - Anemia, unspecified Code(s): D64.9 - Anemia, unspecified Status: Acute Assessment and Plan: 09/08: Hemoglobin 7.0, will transfuse 1 unit of packed RBC Hemoglobin remains stable, continue to monitor, transfuse if hemoglobin < 7.0 09/02: Patient also received 1 unit of packed RBCs for hemoglobin of 6.9 (17) Electrolyte imbalance: Code(s): E87.8 - Other disorders of electrolyte and fluid balance, not elsewhere classified Status: Acute Assessment and Plan: 5 potassium has been replaced as patient is going to be getting diuresed again today (18) Tachycardia: Code(s): R00.0 - Tachycardia, unspecified Status: Acute Assessment and Plan: Metoprolol per tube and p.r.n. IV metoprolol Plan DVT prophylaxis -continue therapeutic Lovenox Stress ulcer prophylaxis -Protonix IV q.12 hours Nutrition -continue tube feeds as residuals allow, continue Reglan, Code Status - DNR Subjective Date/time seen: 09/10/24 14:27 Interval history: chart reviewed. patient unrepsonsive. remains on vent. Review of Systems Review of Systems: ROS unobtainable: Yes unobtainable due to mental status Exam Narrative: General: Pt is now sedated, intubated, in no acute distress HEENT: Pupils equal and reactive, sclera is clear, ETT in place, tongue is swollen Lungs/Chest: Coarse breath sounds bilaterally, decreased at bases, no wheezing Cardiac: RRR. Normal S1 S2. No murmurs Abdomen: Decreased bowel sounds. Soft. NT. ND. Extremities: edema of bilateral upper extremities with gauze wrapped around them due to weeping : Obregon in place Neurologic: Intubated, unresponsvie Skin: Bilateral upper extremity skin breakdown and weeping along with edema All 10 fingers discoloration with blisters on some of the fingers. Tips of the fingers are cold and gangrene. Objective Data Vital Signs Vital Signs: Vital Signs - 24 hr 09/09/24 16:00 09/09/24 16:00 09/09/24 16:00 Temperature Pulse Rate 131 H 131 H 131 H Respiratory Rate 30 H 30 H 28 H Blood Pressure 138/78 Pulse Oximetry 97 Oxygen Delivery Fraction of Inspired Oxygen 09/09/24 16:00 09/09/24 16:00 09/09/24 16:00 Temperature Pulse Rate 126 H Respiratory Rate Blood Pressure Pulse Oximetry 97 Oxygen Delivery Mechanical Ventilation Fraction of Inspired Oxygen 30 09/09/24 17:44 09/09/24 18:00 09/09/24 18:00 Temperature 99.4 F Pulse Rate 131 H 129 H 128 H Respiratory Rate 31 H Blood Pressure 131/76 Pulse Oximetry 98 97 Oxygen Delivery Mechanical Ventilation Fraction of Inspired Oxygen 30 09/09/24 18:00 09/09/24 20:00 09/09/24 20:00 Temperature Pulse Rate 128 H 145 H Respiratory Rate 26 H 35 H Blood Pressure Pulse Oximetry 98 Oxygen Delivery Mechanical Ventilation Fraction of Inspired Oxygen 30 09/09/24 20:00 09/09/24 20:00 09/09/24 20:00 Temperature 99.9 F H Pulse Rate 139 H 138 H Respiratory Rate 34 H Blood Pressure 158/87 H Pulse Oximetry 98 Oxygen Delivery Fraction of Inspired Oxygen 30 09/09/24 20:55 09/09/24 20:57 09/09/24 22:00 Temperature Pulse Rate 143 H 145 H 133 H Respiratory Rate Blood Pressure Pulse Oximetry 96 Oxygen Delivery Mechanical Ventilation Fraction of Inspired Oxygen 30 09/09/24 22:00 09/09/24 22:00 09/09/24 23:25 Temperature Pulse Rate 133 H 133 H 131 H Respiratory Rate 32 H 32 H Blood Pressure 139/82 Pulse Oximetry 97 96 Oxygen Delivery Mechanical Ventilation Fraction of Inspired Oxygen 30 09/10/24 00:00 09/10/24 00:00 09/10/24 00:00 Temperature Pulse Rate 131 H Respiratory Rate Blood Pressure Pulse Oximetry 96 Oxygen Delivery Mechanical Ventilation Fraction of Inspired Oxygen 30 09/10/24 00:00 09/10/24 00:00 09/10/24 02:00 Temperature 99.4 F Pulse Rate 131 H 131 H 129 H Respiratory Rate 35 H 35 H 43 H Blood Pressure 134/81 Pulse Oximetry 96 Oxygen Delivery Fraction of Inspired Oxygen 09/10/24 02:00 09/10/24 02:00 09/10/24 02:40 Temperature Pulse Rate 129 H 129 H 113 H Respiratory Rate 43 H Blood Pressure 146/102 H Pulse Oximetry 97 97 Oxygen Delivery Mechanical Ventilation Fraction of Inspired Oxygen 30 09/10/24 04:00 09/10/24 04:00 09/10/24 04:00 Temperature 98.1 F Pulse Rate 111 H Respiratory Rate 29 H Blood Pressure 134/75 Pulse Oximetry 97 97 Oxygen Delivery Mechanical Ventilation Fraction of Inspired Oxygen 30 30 09/10/24 04:00 09/10/24 04:00 09/10/24 04:53 Temperature Pulse Rate 113 H 111 H 108 H Respiratory Rate 29 H 20 Blood Pressure Pulse Oximetry Oxygen Delivery Fraction of Inspired Oxygen 09/10/24 04:53 09/10/24 05:12 09/10/24 06:00 Temperature Pulse Rate 108 H 120 H 115 H Respiratory Rate 20 25 H Blood Pressure Pulse Oximetry 96 Oxygen Delivery Mechanical Ventilation Fraction of Inspired Oxygen 30 09/10/24 06:00 09/10/24 06:00 09/10/24 06:20 Temperature Pulse Rate 112 H 113 H 113 H Respiratory Rate 28 H 26 H Blood Pressure 133/78 Pulse Oximetry 97 Oxygen Delivery Fraction of Inspired Oxygen 09/10/24 08:00 09/10/24 08:00 09/10/24 08:00 Temperature 99.3 F Pulse Rate 113 H 120 H Respiratory Rate 24 H 24 H Blood Pressure 150/85 H Pulse Oximetry 97 Oxygen Delivery Fraction of Inspired Oxygen 30 09/10/24 08:00 09/10/24 08:00 09/10/24 08:02 Temperature Pulse Rate 117 H 115 H Respiratory Rate Blood Pressure Pulse Oximetry 99 97 Oxygen Delivery Mechanical Ventilation Mechanical Ventilation Fraction of Inspired Oxygen 30 30 09/10/24 09:16 09/10/24 10:00 09/10/24 10:00 Temperature 99.3 F Pulse Rate 119 H 123 H 125 H Respiratory Rate 28 H 25 H Blood Pressure 134/79 Pulse Oximetry 94 Oxygen Delivery Fraction of Inspired Oxygen 09/10/24 10:00 09/10/24 10:09/10/24 12:00 Temperature Pulse Rate 122 H 120 H 108 H Respiratory Rate 23 H Blood Pressure Pulse Oximetry 97 Oxygen Delivery Mechanical Ventilation Fraction of Inspired Oxygen 09/10/24 12:00 09/10/24 12:00 09/10/24 12:00 Temperature Pulse Rate 123 H Respiratory Rate Blood Pressure Pulse Oximetry 100 Oxygen Delivery Mechanical Ventilation Fraction of Inspired Oxygen 30 09/10/24 12:36 09/10/24 14:00 09/10/24 14:00 Temperature 98.5 F Pulse Rate 113 H 109 H 108 H Respiratory Rate 28 H 24 H Blood Pressure 145/94 H 158/89 H Pulse Oximetry 100 100 Oxygen Delivery Fraction of Inspired Oxygen Intake/Output Intake/Output: Intake & Output 09/07/24 09/08/24 09/09/24 09/10/24 23:59 23:59 23:59 23:59 Intake Total 2168.4 4375.8 3442.7 2333.7 Output Total 2200 3900 4160 2550 Balance -31.6 475.8 -717.3 -216.3 Meds/Results Medications: Active Medications Generic Name Dose Route Start Last Admin Trade Name Freq PRN Reason Stop Dose Admin Acetaminophen 650 mg 08/29/24 18:17 Acetaminophen 325 Mg Tablet PO Q4H PRN Mild Pain (1-3) or Fever Acetaminophen 650 mg 08/30/24 00:43 08/30/24 06:56 Acetaminophen 650 Mg Suppository RECTAL 650 mg Q6H PRN Administration Mild Pain (1-3) or Fever Bumetanide 1 mg 09/08/24 09:00 09/10/24 09:16 Bumetanide Inj 1 Mg/4 Ml Vial IV PUSH 1 mg Q12H RHYS Administration Dextrose 12.5 gm 08/29/24 20:42 08/31/24 20:55 Dextrose 50% 25 Gm/50 Ml Syringe IV PUSH 12.5 gm PRN PRN Administration Hypoglycemia Protocol Enoxaparin Sodium 60 mg 09/03/24 11:35 09/10/24 11:33 Enoxaparin 60 Mg/0.6 Ml Syringe SUB-Q 60 mg Q12H RHYS Administration Glucagon 1 mg 08/29/24 20:42 Glucagon For Inj 1 Mg Vial IM PRN PRN Hypoglycemia Protocol Glucose 15 gm 08/29/24 20:42 Glucose Oral Gel 15 Gm Of Glucse In 37.5 Gm Tube PO PRN PRN Hypoglycemia Protocol Hydralazine HCl 10 mg 09/08/24 15:05 09/09/24 00:43 Hydralazine Hcl 20 Mg/Ml Vial IV PUSH 10 mg Q4HR PRN Administration Blood Pressure - High Hydrocortisone Sodium Succinate 20 mg 09/03/24 09:00 09/10/24 09:16 Hydrocortisone Sodium Succinate 100 Mg/2 Ml Vial IV PUSH 20 mg QAM RHYS Administration Dextrose 1,000 mls @ 100 mls/hr 08/29/24 20:42 Dextrose 5% 1,000 Ml IVPB PRN PRN Hypoglycemia Protocol Micafungin Sodium 100 mg/ 100 mls @ 100 mls/hr 09/04/24 10:20 09/10/24 09:16 Sodium Chloride IVPB 100 mls/hr DAILY RHYS Administration Levofloxacin/Dextrose 750 mg in 150 mls @ 100 mls/hr 09/05/24 09:00 09/09/24 10:03 Levaquin 750 Mg/D5w 150 Ml IVPB Infused Q48H RHYS Infusion Meropenem 1 gm in 100 mls @ 200 mls/hr 09/06/24 11:00 09/10/24 09:16 IVPB 200 mls/hr Q12HR RHYS Administration Dexmedetomidine HCl 400 mcg in 100 mls @ 4.47 mls/hr 09/06/24 14:00 09/10/24 12:00 Precedex 400 Mcg/100 Ml IV CONT 0.3 mcg/kg/hr .[id number] RHYS 4.47 mls/hr Titration Protocol 0.3 MCG/KG/HR Vancomycin HCl 1,250 mg in 250 mls @ 166.667 mls/hr 09/09/24 21:00 09/10/24 03:08 Vancomycin 1,250 Mg/Ns 250 Ml IVPB Infused Q36H RHYS Infusion Insulin Aspart 3 - 6 units 09/09/24 00:00 09/10/24 12:57 Insulin Aspart (*Bkc) 100 Units/Ml SUB-Q Not Given Q6HR RHYS Protocol Metoclopramide HCl 10 mg 09/01/24 08:00 09/10/24 11:33 Metoclopramide Hcl 10 Mg/10 Ml Soln Udc FEED TUBE 10 mg Q6HR RHYS Administration Metoprolol Tartrate 25 mg 09/06/24 13:55 09/10/24 09:16 Metoprolol Tartrate 25 Mg Tablet PO 25 mg Q12HR RHYS Administration Metoprolol Tartrate 5 mg 09/08/24 11:07 09/08/24 19:52 Metoprolol Tartrate Inj 5 Mg/5 Ml Vial IV PUSH 5 mg Q6H PRN Administration HR>130 Miscellaneous Information 1 each 09/09/24 00:01 09/10/24 00:32 Please Renew Dexmedetomidine_. Per [employer] Procedure, It Will Discontinue If Not Renewed XX 10/09/24 00:00 1 each CLARIFY RHYS Administration Multi-Ingred Cream/Lotion/Oil/Oint 1 applic 08/30/24 10:20 09/10/24 09:17 Mineral Oil/White Petrolatum Ointment EACH EYE 1 applic Q12HR RHYS Administration Pantoprazole Sodium 40 mg 08/30/24 10:40 09/10/24 09:15 Pantoprazole Sodium Iv 40 Mg Vial IV PUSH 40 mg Q12HR RHYS Administration Prednisolone Acetate 1 drop 08/30/24 21:00 09/10/24 09:17 Prednisolone Acetate 1% Ophth 5 Ml RIGHT EYE 1 drop Q12HR RHYS Administration Sodium Chloride 10 ml 08/30/24 12:17 Central Line Flush IV PUSH PRN PRN with TPN bag changes Sodium Chloride 20 ml 08/30/24 12:17 09/10/24 05:46 Central Line Flush IV PUSH 20 ml PRN PRN Administration after blood draws Sodium Chloride 10 ml 09/04/24 22:00 09/10/24 05:46 Central Line Flush IV PUSH 10 ml Q8HR RHYS Administration Sodium Chloride 20 ml 09/04/24 12:30 09/09/24 04:45 Central Line Flush IV PUSH 20 ml PRN PRN Administration after blood draws Radiology Results: ITS Impressions Abdomen X-Ray 08/30/24 11:02 IMPRESSION: Bilateral pneumonia. Differential include pulmonary edema. Venous Doppler Study 09/03/24 10:50 IMPRESSION: 1. Extensive deep and superficial venous thrombosis throughout the bilateral upper lungs as detailed above. Findings were discussed with Jacinto Victor, the nurse caring for the patient, at 10:59 AM. ADDENDUM: 09/03/24 1400 CORRECTION: There is a dictation error in the impression section. With the correction capitalized this should read- Extensive deep and superficial venous thrombosis throughout the bilateral upper LIMBS as detailed above. Head CT 09/09/24 15:44 IMPRESSION: Large acute bilateral occipital lobe infarcts. Multifocal bilateral cerebellar infarcts. Focal bilateral thalamic acute infarcts. Results reported telephonically to Halle Browning RN by Dr. Campos at 3:48 PM on 09/09/2024. Chest/Abdomen/Pelvis CT 09/09/24 15:56 IMPRESSION: Endotracheal tube terminates 2.5 cm above the sun. Right IJ central line terminates in the right atrium. CT findings suggestive of right lower lobe pneumonia. Additional patchy bilateral groundglass and reticular opacities may represent edema or multifocal infection, to include atypical variants. Small bilateral pleural effusions. Asymmetric chest wall edema, greater on the right. Correlate for signs of infection. Subacute pelvic and sacral fractures. Chest X-Ray 09/10/24 05:55 Impression: Patchy, hazy bilateral airspace disease. Correlate for pulmonary edema versus bilateral pneumonia. Possible underlying COPD or chronic interstitial disease. Support tubes, as above. Labs Labs: Laboratory Results - last 24 hr 08/31/24 09/07/24 09/07/24 08:30 11:01 12:12 WBC RBC Hgb Hct MCV MCH MCHC RDW Plt Count MPV Puncture Site ABG pH ABG pCO2 ABG pO2 ABG PO2/FiO2 Ratio ABG HCO3 ABG O2 Saturation ABG O2 Content ABG Base Excess A-a Gradient Oxyhemoglobin Carboxyhemoglobin Methemoglobin Reduced Hemoglobin Total Hemoglobin O2 Delivery Device O2 Liters/Min Minute Volume Vent Rate Vent Mode FiO2 Tidal Volume PEEP Peak Inspir Pressure Pressure Support Sodium Potassium Chloride Carbon Dioxide Anion Gap BUN Creatinine Estim Creat Clear Calc Estimated GFR Glucose POC Capillary Glucose Calcium Phosphorus Magnesium Total Bilirubin AST ALT Alkaline Phosphatase Total Protein Albumin Angiotensin Convert Enz 46 Ur Random Creatinine 12 L Ur Random Calcium 12.0 Calcium/Creat Ratio 1000 H CMV Culture Detected 09/09/24 09/09/24 09/10/24 16:02 18:20 00:19 WBC RBC Hgb Hct MCV MCH MCHC RDW Plt Count MPV Puncture Site ABG pH ABG pCO2 ABG pO2 ABG PO2/FiO2 Ratio ABG HCO3 ABG O2 Saturation ABG O2 Content ABG Base Excess A-a Gradient Oxyhemoglobin Carboxyhemoglobin Methemoglobin Reduced Hemoglobin Total Hemoglobin O2 Delivery Device O2 Liters/Min Minute Volume Vent Rate Vent Mode FiO2 Tidal Volume PEEP Peak Inspir Pressure Pressure Support Sodium 146 H Potassium 4.6 Chloride 115 H Carbon Dioxide 25 Anion Gap 6 BUN 84 H D Creatinine 0.96 Estim Creat Clear Calc 38 Estimated GFR 58 L Glucose 126 H POC Capillary Glucose 142 H 124 H Calcium 10.4 H Phosphorus 4.2 Magnesium 2.5 H Total Bilirubin AST ALT Alkaline Phosphatase Total Protein Albumin Angiotensin Convert Enz Ur Random Creatinine Ur Random Calcium Calcium/Creat Ratio CMV Culture 09/10/24 09/10/24 09/10/24 04:43 04:48 11:09 WBC 44.5 H RBC 2.71 L Hgb 8.0 L Hct 25.0 L MCV 92.3 MCH 29.5 MCHC 32.0 RDW 20.6 H Plt Count 467 H MPV 10.5 H Puncture Site Right radial ABG pH 7.536 H* ABG pCO2 25.2 L ABG pO2 98.3 ABG PO2/FiO2 Ratio 3.28 ABG HCO3 20.9 L ABG O2 Saturation 98.2 ABG O2 Content 13.3 L ABG Base Excess -0.9 A-a Gradient 86.0 Oxyhemoglobin 96.5 Carboxyhemoglobin 0.8 Methemoglobin 0.3 Reduced Hemoglobin 2.4 Total Hemoglobin 9.7 L O2 Delivery Device Ventilator O2 Liters/Min Not Reportable Minute Volume Not Reportable Vent Rate 18 Vent Mode Cmv FiO2 30 Tidal Volume 370 PEEP 8 Peak Inspir Pressure Not Reportable Pressure Support Not Reportable Sodium 145 Potassium 3.5 Chloride 113 H Carbon Dioxide 24 Anion Gap 8 BUN 74 H D Creatinine 1.03 H Estim Creat Clear Calc 36 Estimated GFR 54 L Glucose 129 H POC Capillary Glucose 125 H Calcium 9.3 Phosphorus 4.0 Magnesium 1.9 Total Bilirubin 0.4 AST 89 H ALT 40 H Alkaline Phosphatase 109 Total Protein 5.6 L Albumin 2.6 L Angiotensin Convert Enz Ur Random Creatinine Ur Random Calcium Calcium/Creat Ratio CMV Culture
[2024-09-10 18:23] LABS: Vitamin A. 32 mcg/dL (38-98)
[2024-09-10] MEDS: dexmedeTOMIDine 400 MCG/100 ML 400 MCG/100 ML BAG IV CONT (23:50)
[2024-09-11] VITALS (28 sets, daily range): BP systolic 106–169; BP diastolic 66–105; PULSE 112–152; RESP 24–40; TEMP 36.8–38.7; O2SAT 90–100
[2024-09-11] MEDS: METOCLOPRAMIDE HCL 10 MG/10 ML SOLN UDC FEED TUBE ×4 (00:18→18:15)
[2024-09-11] MEDS: METOPROLOL TARTRATE INJ 5 MG/5 ML VIAL IV PUSH (04:12)
[2024-09-11 04:28] LABS: Alveolar/Arterial O2 Gradient 69.7 mmHg; Fractional Inspired Oxygen 30 %; HCO3 ABG 27.3 mEq/l (22.0-26.0); Oxygen Content ABG 11.8 %vol (16.0-22.0); Oxygen Saturation ABG 98.5 % (95.0-100.0); PCO2 ABG 31.3 mmHg (35.0-45.0); PO2 ABG 107.4 mmHg (80.0-100.0); PO2 FiO2 Ratio Arterial Blood 3.58 %
[2024-09-11 04:31] LABS: Arterial Blood Gas Ventilator rate 18 /MIN; Modified Allen's Test Pass; Site Drawn RIGHT RADIAL
[2024-09-11 04:32] LABS: Arterial Blood Gas Tidal Volume 330 ml
[2024-09-11 05:05] LABS: Hematocrit 25.5 % (37.0-47.0); Hemoglobin 8.1 g/dL (12.0-15.0); Mean Corpuscular HGB Conc 31.8 g/dl (32-36); Mean Corpuscular Hemoglobin 30.1 pg (26-34); Mean Corpuscular Volume 94.8 fl (80-100); Platelet Count Result 583 k/mm3 (150-375); Red Blood Count 2.69 M/mm3 (4.2-5.4); White Blood Count 38.7 K/mm3 (4.5-10.0)
[2024-09-11 05:21] LABS: Alanine Aminotransferase 51 U/L (6-35); Albumin Level 2.7 g/dL (3.5-5.1); Alkaline Phosphatase 127 U/L (38-126); Anion Gap 4 mmol/L (4-12); Aspartate Amino Transferase 89 U/L (14-36); Bilirubin,Total 0.6 mg/dL (0.2-1.3); Blood Urea Nitrogen 63 mg/dL (7-17); Calcium 9.0 mg/dL (8.4-10.2); Carbon Dioxide 28 mmol/L (22-30); Chloride 111 mmol/L (98-107); Estimated CRCL calculation 38 ml/min; Estimated Glomerular Filt Rate 57; Glucose 111 mg/dL (65-110); Magnesium 1.7 mg/dL (1.6-2.3); Potassium 2.9 mmol/L (3.4-5.0); Sodium 143 mmol/L (137-145); Total Protein 5.9 g/dL (6.3-8.2)
[2024-09-11 05:35] LABS: Band Neutrophils Percent 3 % (0-6); Lymphocytes Absolute Manual 3.48 K/mm3 (1.1-4.5); Lymphocytes Percent Manual 9.0 % (18-44); Metamyelocytes Percent 1 %; Monocytes Absolute Manual 3.48 K/mm3 (0.1-0.90); Monocytes Percent Manual 9 % (3-9); Neutrophils Absolute Manual 31.34 K/mm3 (1.3-6.7); Neutrophils Percent Manual 78 % (46-73); Total Cells Counted 100
[2024-09-11 05:36] LABS: Anisocytosis 1+; Hypochromasia 2+; Schistocytes None Seen; Stomatocytes 1+
[2024-09-11] MEDS: CENTRAL LINE FLUSH 10 ML IV PUSH ×3 (05:36→20:21)
[2024-09-11] MEDS: POTASSIUM CHLORIDE 20 MEQ PACKET (FOR LIQUID) 40 MEQ FEED TUBE (06:12)
[2024-09-11] MEDS: KCL 40 MEQ/WATER 100 ML 100 ML 25 ML IVPB (06:12)
[2024-09-11] MEDS: ACETAMINOPHEN 325 MG TABLET 650 MG PO (08:57)
[2024-09-11] MEDS: MEROPENEM 1 GM/NS 100 ML 1 GM/100 ML BAG IVPB ×2 (08:57→20:20)
[2024-09-11] MEDS: HYDROCORTISONE SODIUM SUCCINATE 100 MG/2 ML VIAL 20 MG IV PUSH (08:57)
[2024-09-11] MEDS: METOPROLOL TARTRATE 25 MG TABLET PO (08:57)
[2024-09-11] MEDS: BUMETANIDE INJ 1 MG/4 ML VIAL IV PUSH (08:57)
[2024-09-11] MEDS: PANTOPRAZOLE SODIUM IV 40 MG VIAL IV PUSH ×2 (08:57→20:21)
[2024-09-11] MEDS: prednisoLONE ACETATE 1% OPHTH 5 ML 1 DROP RIGHT EYE ×2 (08:57→20:21)
[2024-09-11] MEDS: VANCOMYCIN 1,250 MG/NS 250 ML 1,250 MG/250 ML BAG 166.67 MG IVPB (08:58)
[2024-09-11] MEDS: levoFLOXacin 750 MG/D5W 150 ML 750 MG/150 ML BAG 100 MG IVPB (08:59)
[2024-09-11] MEDS: MICAFUNGIN SODIUM 100 MG in SODIUM CHLORIDE 0.9% IV 100 ML IVPB (09:22)
[2024-09-11] MEDS: MAGNESIUM SULF 2 GM/WATER 50ML 2 GM/50 ML BAG IVPB (09:26)
--- NOTE | 2024-09-11 09:40 | P.PNINT_ITS ---
Progress Note: A&P Assessment and Plan (1) Encephalopathy: Code(s): G93.40 - Encephalopathy, unspecified Status: Acute Assessment and Plan: Patient has been off sedation for more than 72 hours, remains on Precedex infusion. Patient has not been waking up. -09/09/2024: CT scan of the brain: Large acute bilateral occipital lobe infarcts. Multifocal bilateral cerebellar infarcts. Focal bilateral thalamic acute infarcts. -patient evaluated by Neurology -patient remains on therapeutic Lovenox for bilateral upper extremity DVTs -Neurology discussed with family and relayed that prognosis was dismal -will up titrate Precedex to alleviate tachypnea tachycardia (2) Acute respiratory failure: Code(s): J96.00 - Acute respiratory failure, unspecified whether with hypoxia or hypercapnia Status: Acute Assessment and Plan: Acute respiratory failure and sepsis secondary to bilateral Pseudomonas pneumonia in an immunocompromised patient who was on methotrexate and hydroxychloroquine. -ARDS physiology -08/30: Intubated for tachypnea, tachycardia, respiratory distress 08/31: bronchoscopy which did not show any LR hemorrhage or tracheobronchitis 08/31: BAL culture is growing Pseudomonas which is pansensitive. Also Milagros glabrata -08/29: Blood culture negative -08/20: sputum culture negative -09/04: Repeat blood cultures are negative PCR for influenza RSV and COVID was negative Urine Legionella negative and pneumococcal antigen negative Negative Mycoplasma IgM Patient on low-dose hydrocortisone as patient has been on chronic steroid use at home -09/04: Patient placed in prone position due to increased oxygen requirements secondary to ARDS and Pseudomonas pneumonia. Patient was also paralyzed with rocuronium and started on Nimbex infusion for ventilator synchrony 09/05: prone position, ABGs reviewed, ventilator adjusted. Patient will be placed in supine position, off Nimbex infusion 09/06: Patient was placed in supine position yesterday and remains in supine position this morning. Currently on 45% FiO2 and peep of 12 with good O2 sats. I have asked the bedside RN to start weaning sedation, start Precedex infusion if needed 09/06: . Given that patient's WBC count is elevated will switch cefepime to meropenem (09/06). Elevated WBC count could also be related to steroids 09/07: Continue meropenem and Levaquin, WBC count trending down, continue to monitor. Chest x-ray also improving 09/08: WBC count remains elevated, add vancomycin. Weaned PEEP to 8 and FiO2 to 35% 09/09: Place patient on pressure support ventilation 10/5, tolerated for about 4 hours after which she got tachypneic tachycardic was switched to CMV mode of ventilation. 09/10: Continue meropenem, vancomycin, micafungin and Levaquin 08/29 CT Chest Dense bilateral multifocal infiltrates, predominantly perihilar, as detailed above. No additional source is detected for patient's profound sepsis (3) Gastroesophageal reflux disease: Qualifiers: Esophagitis presence: esophagitis presence not specified Qualified Code(s): K21.9 - Gastro-esophageal reflux disease without esophagitis Code(s): K21.9 - Gastro-esophageal reflux disease without esophagitis Status: Acute Assessment and Plan: PPI q.12 hours (4) FRANK (acute kidney injury): Code(s): N17.9 - Acute kidney failure, unspecified Status: Acute Assessment and Plan: Patient presented with elevated creatinine which was likely secondary to sepsis. Creatinine improved with IV fluids Cut down on further IV fluids and patient was given IV fluids Urine output improved. Creatinine in normal range maintain map above 65 mmHg Monitor urine output electrolytes and creatinine Patient has received Lasix, Bumex, Diuril [place] catheter for accurate I&Os Increased BUN and hypercalcemia -discussed with Nephrology, continue diuresis -09/07: hypercalcemia: Received calcitonin and pamidronate along with diuretic. Effect of pamidronate takes place within 72 hours, Calcium levels improved and normalized continue to monitor (5) Sepsis: Qualifiers: Sepsis acute organ dysfunction status: with acute organ dysfunction Sepsis type: sepsis due to unspecified organism Severe sepsis acute organ dysf unction type: encephalopathy Severe sepsis shock status: without septic shock Qualified Code(s): A41.9 - Sepsis, unspecified organism; R65.20 - Severe sepsis without septic shock; G93.41 - Metabolic encephalopathy Code(s): A41.9 - Sepsis, unspecified organism Status: Acute Assessment and Plan: See above (6) Immunosuppressed status: Code(s): D89.9 - Disorder involving the immune mechanism, unspecified Status: Acute Assessment and Plan: Patient was on steroids and immunosuppressants at home (7) Rheumatoid arthritis: Code(s): M06.9 - Rheumatoid arthritis, unspecified Status: Acute Assessment and Plan: Hold methotrexate and hydroxychloroquine (8) Pneumonia: Qualifiers: Laterality: bilateral Lung location: unspecified part of lung Pneumonia type: due to unspecified organism Qualified Code(s): J18.9 - Pneumonia, unspecified organism Code(s): J18.9 - Pneumonia, unspecified organism Status: Acute Assessment and Plan: See above (9) Urinary tract infection: Qualifiers: Hematuria presence: with hematuria Urinary tract infection type: site unspecified Qualified Code(s): N39.0 - Urinary tract infection, site not specified; R31.9 - Hematuria, unspecified Code(s): N39.0 - Urinary tract infection, site not specified Status: Acute Assessment and Plan: UA suggestive of UTI 08/29: Urine cultures - negative (10) Herpes labialis: Code(s): B00.1 - Herpesviral vesicular dermatitis Status: Acute Assessment and Plan: Received acyclovir through tube earlier in the code (11) Hypoglycemia: Code(s): E16.2 - Hypoglycemia, unspecified Status: Acute Assessment and Plan: Resolved (12) Ileus: Code(s): K56.7 - Ileus, unspecified Status: Acute Assessment and Plan: Bowel sounds absent. Tube feeds on hold. Continue Reglan Will resume tube feeds at 20 mL/hour (13) Peripheral ischemia: Code(s): I99.8 - Other disorder of circulatory system Status: Acute Assessment and Plan: Patient has developed discoloration/gangrene of all 10 fingers. likely systemic presentation suggest against vascular clot, septic emboli, pseudomonal infection Radial pulses are dopplerable Blood pressure are on the higher side Monitor maintain mean arterial pressure above 65 mmHg -discoloration on her fingers are improving, also blistering noted on some of the fingers, continue to monitor (14) Swelling of both upper extremities: Code(s): M79.89 - Other specified soft tissue disorders Status: Acute Assessment and Plan: Likely secondary to edema as it is bilateral 09/03: Bilateral upper extremity venous Doppler showed extensive deep and superficial venous thrombosis throughout the bilateral upper extremities -continue therapeutic Lovenox IV q.12 hours (15) Anemia: Qualifiers: Anemia type: unspecified type Qualified Code(s): D64.9 - Anemia, unspecified Code(s): D64.9 - Anemia, unspecified Status: Acute Assessment and Plan: 09/08: Hemoglobin 7.0, will transfuse 1 unit of packed RBC Hemoglobin remains stable, continue to monitor, transfuse if hemoglobin < 7.0 09/02: Patient also received 1 unit of packed RBCs for hemoglobin of 6.9 (16) Electrolyte imbalance: Code(s): E87.8 - Other disorders of electrolyte and fluid balance, not elsewhere classified Status: Acute Assessment and Plan: Potassium replacement ordered (17) Tachycardia: Code(s): R00.0 - Tachycardia, unspecified Status: Acute Assessment and Plan: Metoprolol per tube and p.r.n. IV metoprolol Plan DVT prophylaxis -continue therapeutic Lovenox Stress ulcer prophylaxis -Protonix IV q.12 hours Nutrition -tube feeds were held yesterday due to high residuals. I will restart tube feeds at a low rate again today, continue Reglan, Code Status -patient is currently DNR. Family is planning to proceed with palliative extubation and comfort care. I spoke to patient's son [id number] and access pain again and discussed patient's current condition of multiorgan failure. They again confirmed that they are planning to p proceed with palliative extubation and comfort care on . Patient's brother and today was his they want rest of the family to come visit her including her brother. I discussed increasing Precedex and giving opioid to promote comfort which may impact her encephalopathy. They at this time want us to focus more on her comfort and make sure she is not in pain or distress. Total Critical Care Time - 30 minutes Due to a high probability of clinically significant, life threatening deterioration, the patient required my highest level of preparedness to intervene emergently and I personally spent this critical care time directly and personally managing the patient. This critical care time included obtaining a history; examining the patient; pulse oximetry; ordering and review of studies; arranging urgent treatment with development of a management plan; evaluation of patient's response to treatment; frequent reassessment; and discussions with other providers. It was exclusive of separately billable procedures and treating other patients and teaching time. Please see Assessment and Plan section and the rest of the note for further information on patient assessment and treatment Subjective Date/time seen: 09/11/24 Continues to be on mechanical ventilation. On low-dose Precedex at 0.2. Tachycardic tachypneic. Febrile this morning Good urine output in response to diuretics. Tube feeds were held yesterday due to high residuals. Unresponsive Review of Systems Review of Systems: ROS unobtainable: Yes unobtainable due to endotracheal tube, unobtainable due to medical condition and unobtainable due to mental status Exam Narrative: General: Pt is now sedated, intubated, HEENT: Pupils equal and reactive, sclera is clear, ETT in place, tongue is swollen Lungs/Chest: Coarse breath sounds bilaterally, decreased at bases, no wheezing, tachypnea Cardiac: Tachycardia RRR. Normal S1 S2. No murmurs Circulation: Bilateral radial pulses dopplerable and bilateral pedal pulses are palpable, Abdomen: Abscess bowel sounds. Soft. Extremities: edema of bilateral upper extremities with gauze wrapped around them due to weeping, blisters on multiple fingers : Obregon in place Neurologic: Intubated, Precedex infusion, tries to open her eyes on stimulation Skin: Bilateral upper extremity skin breakdown and weeping along with edema She also has several scabbed wounds on her both legs which are in various healing stage but no open or infected wound. All 10 fingers discoloration is improving, blisters on some of the fingers. Tips of the fingers are cold and gangrene. Swelling of the hands noted. No discoloration noted on the toes bilaterally, Objective Data Vital Signs Vital Signs: Vital Signs - 24 hr 09/10/24 10:09/10/24 10:09/10/24 10:00 Temperature 37.4 C Pulse Rate 123 H 125 H 122 H Respiratory Rate 28 H 25 H Blood Pressure 134/79 Pulse Oximetry 94 Oxygen Delivery Fraction of Inspired Oxygen 09/10/24 10:09/10/24 12:09/10/24 12:00 Temperature Pulse Rate 120 H 108 H Respiratory Rate 23 H Blood Pressure Pulse Oximetry 97 Oxygen Delivery Mechanical Ventilation Fraction of Inspired Oxygen 09/10/24 12:09/10/24 12:09/10/24 12:36 Temperature 36.9 C Pulse Rate 123 H 113 H Respiratory Rate 28 H Blood Pressure 145/94 H Pulse Oximetry 100 100 Oxygen Delivery Mechanical Ventilation Fraction of Inspired Oxygen 09/10/24 14:09/10/24 14:09/10/24 14:00 Temperature Pulse Rate 109 H 108 H 116 H Respiratory Rate 24 H 24 H Blood Pressure 158/89 H Pulse Oximetry 100 Oxygen Delivery Fraction of Inspired Oxygen 09/10/24 14:42 09/10/24 16:00 09/10/24 16:00 Temperature 37.0 C Pulse Rate 117 H 115 H 114 H Respiratory Rate 27 H 27 H Blood Pressure 143/83 H Pulse Oximetry 97 100 Oxygen Delivery Mechanical Ventilation Fraction of Inspired Oxygen 30 09/10/24 16:00 09/10/24 16:00 09/10/24 16:00 Temperature Pulse Rate 112 H Respiratory Rate Blood Pressure Pulse Oximetry 100 Oxygen Delivery Mechanical Ventilation Fraction of Inspired Oxygen 30 30 09/10/24 17:05 09/10/24 18:00 09/10/24 18:00 Temperature 37.2 C Pulse Rate 115 H 115 H 116 H Respiratory Rate 25 H Blood Pressure 145/84 H Pulse Oximetry 97 100 Oxygen Delivery Mechanical Ventilation Fraction of Inspired Oxygen 30 09/10/24 20:00 09/10/24 20:00 09/10/24 20:00 Temperature Pulse Rate 111 H Respiratory Rate Blood Pressure Pulse Oximetry 98 Oxygen Delivery Mechanical Ventilation Fraction of Inspired Oxygen 30 09/10/24 20:00 09/10/24 20:00 09/10/24 20:14 Temperature 36.3 C L Pulse Rate 115 H 115 H 113 H Respiratory Rate 29 H 29 H Blood Pressure 156/82 H Pulse Oximetry 98 99 Oxygen Delivery Mechanical Ventilation Fraction of Inspired Oxygen 30 09/10/24 20:36 09/10/24 22:00 09/10/24 22:00 Temperature Pulse Rate 116 H 117 H 117 H Respiratory Rate 29 H Blood Pressure Pulse Oximetry Oxygen Delivery Fraction of Inspired Oxygen 09/10/24 22:00 09/10/24 22:23 09/10/24 23:50 Temperature Pulse Rate 117 H 117 H 120 H Respiratory Rate 29 H 29 H Blood Pressure 139/88 Pulse Oximetry 99 98 Oxygen Delivery Mechanical Ventilation Fraction of Inspired Oxygen 30 09/10/24 23:50 09/11/24 00:00 09/11/24 00:00 Temperature Pulse Rate 120 H 121 H Respiratory Rate 29 H Blood Pressure Pulse Oximetry 99 Oxygen Delivery Mechanical Ventilation Fraction of Inspired Oxygen 30 09/11/24 00:00 09/11/24 00:00 09/11/24 01:08 Temperature 36.8 C Pulse Rate 118 H 118 H Respiratory Rate 28 H 28 H Blood Pressure 144/89 H Pulse Oximetry 99 Oxygen Delivery Fraction of Inspired Oxygen 30 09/11/24 01:19 09/11/24 02:00 09/11/24 02:00 Temperature Pulse Rate 121 H 124 H 124 H Respiratory Rate 29 H Blood Pressure 148/88 H Pulse Oximetry 100 100 Oxygen Delivery Mechanical Ventilation Fraction of Inspired Oxygen 30 09/11/24 02:00 09/11/24 04:00 09/11/24 04:00 Temperature Pulse Rate 124 H 135 H Respiratory Rate 29 H 30 H Blood Pressure Pulse Oximetry 98 Oxygen Delivery Mechanical Ventilation Fraction of Inspired Oxygen 30 09/11/24 04:00 09/11/24 04:00 09/11/24 04:00 Temperature 36.9 C Pulse Rate 131 H 131 H Respiratory Rate 31 H Blood Pressure 153/90 H Pulse Oximetry 98 Oxygen Delivery Fraction of Inspired Oxygen 30 09/11/24 04:12 09/11/24 04:33 09/11/24 06:00 Temperature Pulse Rate 135 H 124 H 128 H Respiratory Rate Blood Pressure Pulse Oximetry 100 Oxygen Delivery Mechanical Ventilation Fraction of Inspired Oxygen 30 09/11/24 06:00 09/11/24 06:00 09/11/24 08:00 Temperature 38.4 C H Pulse Rate 128 H 128 H 143 H Respiratory Rate 26 H 25 H 25 H Blood Pressure 151/105 H 169/99 H Pulse Oximetry 100 100 Oxygen Delivery Fraction of Inspired Oxygen 09/11/24 08:00 09/11/24 08:00 09/11/24 08:40 Temperature Pulse Rate 148 H Respiratory Rate Blood Pressure Pulse Oximetry 98 100 Oxygen Delivery Mechanical Ventilation Mechanical Ventilation Fraction of Inspired Oxygen 30 30 30 09/11/24 08:57 09/11/24 08:57 09/11/24 09:30 Temperature 38.4 C H 38.7 C H Pulse Rate 150 H Respiratory Rate Blood Pressure Pulse Oximetry Oxygen Delivery Fraction of Inspired Oxygen Intake/Output Intake/Output: Intake & Output 09/08/24 09/09/24 09/10/24 09/11/24 23:59 23:59 23:59 23:59 Intake Total 4375.8 3442.7 3859.5 468.5 Output Total 3900 4160 3050 1650 Balance 475.8 -717.3 809.5 -1181.5 Meds/Results Medications: Active Medications Generic Name Dose Route Start Last Admin Trade Name Freq PRN Reason Stop Dose Admin Acetaminophen 650 mg 08/29/24 18:17 09/11/24 08:57 Acetaminophen 325 Mg Tablet PO 650 mg Q4H PRN Administration Mild Pain (1-3) or Fever Acetaminophen 650 mg 08/30/24 00:43 08/30/24 06:56 Acetaminophen 650 Mg Suppository RECTAL 650 mg Q6H PRN Administration Mild Pain (1-3) or Fever Bumetanide 1 mg 09/08/24 09:00 09/11/24 08:57 Bumetanide Inj 1 Mg/4 Ml Vial IV PUSH 1 mg Q12H RHYS Administration Dextrose 12.5 gm 08/29/24 20:42 08/31/24 20:55 Dextrose 50% 25 Gm/50 Ml Syringe IV PUSH 12.5 gm PRN PRN Administration Hypoglycemia Protocol Enoxaparin Sodium 60 mg 09/03/24 11:35 09/10/24 23:50 Enoxaparin 60 Mg/0.6 Ml Syringe SUB-Q 60 mg Q12H RHYS Administration Glucagon 1 mg 08/29/24 20:42 Glucagon For Inj 1 Mg Vial IM PRN PRN Hypoglycemia Protocol Glucose 15 gm 08/29/24 20:42 Glucose Oral Gel 15 Gm Of Glucse In 37.5 Gm Tube PO PRN PRN Hypoglycemia Protocol Hydralazine HCl 10 mg 09/08/24 15:05 09/09/24 00:43 Hydralazine Hcl 20 Mg/Ml Vial IV PUSH 10 mg Q4HR PRN Administration Blood Pressure - High Hydrocortisone Sodium Succinate 20 mg 09/03/24 09:00 09/11/24 08:57 Hydrocortisone Sodium Succinate 100 Mg/2 Ml Vial IV PUSH 20 mg QAM RHYS Administration Dextrose 1,000 mls @ 100 mls/hr 08/29/24 20:42 Dextrose 5% 1,000 Ml IVPB PRN PRN Hypoglycemia Protocol Micafungin Sodium 100 mg/ 100 mls @ 100 mls/hr 09/04/24 10:20 09/10/24 10:16 Sodium Chloride IVPB Infused DAILY RHYS Infusion Levofloxacin/Dextrose 750 mg in 150 mls @ 100 mls/hr 09/05/24 09:00 09/11/24 08:59 Levaquin 750 Mg/D5w 150 Ml IVPB 100 mls/hr Q48H RHYS Administration Meropenem 1 gm in 100 mls @ 200 mls/hr 09/06/24 11:00 09/10/24 21:10 IVPB Infused Q12HR RHYS Infusion Dexmedetomidine HCl 400 mcg in 100 mls @ 2.98 mls/hr 09/06/24 14:00 09/11/24 06:00 Precedex 400 Mcg/100 Ml IV CONT 0.2 mcg/kg/hr .[id number] RHYS 2.98 mls/hr Titration Protocol 0.2 MCG/KG/HR Potassium Chloride 100 mls @ 25 mls/hr 09/11/24 06:02 09/11/24 06:12 Kcl 40 Meq/Water 100 Ml IVPB 09/11/24 10:01 25 mls/hr ONCE ONE Administration Vancomycin HCl 1,250 mg in 250 mls @ 166.667 mls/hr 09/11/24 08:00 09/11/24 08:58 Vancomycin 1,250 Mg/Ns 250 Ml IVPB 166.67 mls/hr Q24H RHYS Administration Magnesium Sulfate 2 gm in 50 mls @ 25 mls/hr 09/11/24 08:15 Magnesium Sulf 2 Gm/Water 50ml IVPB 09/11/24 10:14 ONCE ONE Insulin Aspart 3 - 6 units 09/09/24 00:00 09/11/24 05:36 Insulin Aspart (*Bkc) 100 Units/Ml SUB-Q Not Given Q6HR [facility] Protocol Metoclopramide HCl 10 mg 09/01/24 08:00 09/11/24 05:36 Metoclopramide Hcl 10 Mg/10 Ml Soln Udc FEED TUBE 10 mg Q6HR RHYS Administration Metoprolol Tartrate 25 mg 09/06/24 13:55 09/11/24 08:57 Metoprolol Tartrate 25 Mg Tablet PO 25 mg Q12HR RHYS Administration Metoprolol Tartrate 5 mg 09/08/24 11:07 09/11/24 04:12 Metoprolol Tartrate Inj 5 Mg/5 Ml Vial IV PUSH 5 mg Q6H PRN Administration HR>130 Multi-Ingred Cream/Lotion/Oil/Oint 1 applic 08/30/24 10:20 09/10/24 20:37 Mineral Oil/White Petrolatum Ointment EACH EYE 1 applic Q12HR RHYS Administration Pantoprazole Sodium 40 mg 08/30/24 10:40 09/10/24 20:37 Pantoprazole Sodium Iv 40 Mg Vial IV PUSH 40 mg Q12HR RHYS Administration Prednisolone Acetate 1 drop 08/30/24 21:00 09/10/24 20:37 Prednisolone Acetate 1% Ophth 5 Ml RIGHT EYE 1 drop Q12HR RHYS Administration Sodium Chloride 10 ml 08/30/24 12:17 Central Line Flush IV PUSH PRN PRN with TPN bag changes Sodium Chloride 20 ml 08/30/24 12:17 09/10/24 05:46 Central Line Flush IV PUSH 20 ml PRN PRN Administration after blood draws Sodium Chloride 10 ml 09/04/24 22:00 09/11/24 05:36 Central Line Flush IV PUSH 10 ml Q8HR RHYS Administration Sodium Chloride 20 ml 09/04/24 12:30 09/09/24 04:45 Central Line Flush IV PUSH 20 ml PRN PRN Administration after blood draws Radiology Results: ITS Impressions Abdomen X-Ray 08/30/24 11:02 IMPRESSION: Bilateral pneumonia. Differential include pulmonary edema. Venous Doppler Study 09/03/24 10:50 IMPRESSION: 1. Extensive deep and superficial venous thrombosis throughout the bilateral upper lungs as detailed above. Findings were discussed with Jacinto Victor, the nurse caring for the patient, at 10:59 AM. ADDENDUM: 09/03/24 1400 CORRECTION: There is a dictation error in the impression section. With the correction capitalized this should read- Extensive deep and superficial venous thrombosis throughout the bilateral upper LIMBS as detailed above. Head CT 09/09/24 15:44 IMPRESSION: Large acute bilateral occipital lobe infarcts. Multifocal bilateral cerebellar infarcts. Focal bilateral thalamic acute infarcts. Results reported telephonically to Halle Browning RN by Dr. Campos at 3:48 PM on 09/09/2024. Chest/Abdomen/Pelvis CT 09/09/24 15:56 IMPRESSION: Endotracheal tube terminates 2.5 cm above the sun. Right IJ central line terminates in the right atrium. CT findings suggestive of right lower lobe pneumonia. Additional patchy bilateral groundglass and reticular opacities may represent edema or multifocal infection, to include atypical variants. Small bilateral pleural effusions. Asymmetric chest wall edema, greater on the right. Correlate for signs of infection. Subacute pelvic and sacral fractures. Chest X-Ray 09/11/24 05:49 Impression: Hazy bilateral airspace disease at the lung bases. Correlate for pulmonary edema versus pneumonia. Probable underlying COPD or chronic interstitial change. Support tubes, as above. Labs Labs: Laboratory Results - last 24 hr 09/07/24 09/07/24 09/10/24 11:01 12:12 11:09 WBC RBC Hgb Hct MCV MCH MCHC RDW Plt Count MPV Immature Gran % (Auto) Neut % (Auto) Lymph % (Auto) [place] % (Auto) Eos % (Auto) Baso % (Auto) Lymph # (Auto) [place] # (Auto) Eos # (Auto) Baso # (Auto) Abs Immat Gran (auto) Absolute Neuts (auto) Absolute Nucleated RBC Total Counted Neutrophils % (Manual) Band Neutrophils % Lymphocytes % (Manual) Monocytes % (Manual) Metamyelocytes % Nucleated RBC % Abs Neuts (Manual) Abs Lymphs (Manual) Abs Monocytes (Manual) Platelet Estimate Hypochromasia Anisocytosis Stomatocytes Schistocytes Puncture Site ABG pH ABG pCO2 ABG pO2 ABG PO2/FiO2 Ratio ABG HCO3 ABG O2 Saturation ABG O2 Content ABG Base Excess A-a Gradient Oxyhemoglobin Total Hemoglobin O2 Delivery Device O2 Liters/Min Minute Volume FiO2 Peak Inspir Pressure Pressure Support Sodium Potassium Chloride Carbon Dioxide Anion Gap BUN Creatinine Estim Creat Clear Calc Estimated GFR Glucose POC Capillary Glucose 125 H Calcium Phosphorus Magnesium Total Bilirubin AST ALT Alkaline Phosphatase Total Protein Albumin Angiotensin Convert Enz 46 Vitamin A 32 L Ur Random Creatinine 12 L Ur Random Calcium 12.0 Calcium/Creat Ratio 1000 H Vancomycin Trough 09/10/24 09/10/24 09/11/24 18:10 23:47 04:17 WBC RBC Hgb Hct MCV MCH MCHC RDW Plt Count MPV Immature Gran % (Auto) Neut % (Auto) Lymph % (Auto) [place] % (Auto) Eos % (Auto) Baso % (Auto) Lymph # (Auto) [place] # (Auto) Eos # (Auto) Baso # (Auto) Abs Immat Gran (auto) Absolute Neuts (auto) Absolute Nucleated RBC Total Counted Neutrophils % (Manual) Band Neutrophils % Lymphocytes % (Manual) Monocytes % (Manual) Metamyelocytes % Nucleated RBC % Abs Neuts (Manual) Abs Lymphs (Manual) Abs Monocytes (Manual) Platelet Estimate Hypochromasia Anisocytosis Stomatocytes Schistocytes Puncture Site Right radial ABG pH 7.559 H* ABG pCO2 31.3 L ABG pO2 107.4 H ABG PO2/FiO2 Ratio 3.58 ABG HCO3 27.3 H ABG O2 Saturation 98.5 ABG O2 Content 11.8 L ABG Base Excess 5.0 A-a Gradient 69.7 Oxyhemoglobin 96.8 Total Hemoglobin 8.5 L O2 Delivery Device Ventilator O2 Liters/Min Not Reportable Minute Volume Not Reportable FiO2 30 Peak Inspir Pressure Not Reportable Pressure Support Not Reportable Sodium Potassium Chloride Carbon Dioxide Anion Gap BUN Creatinine Estim Creat Clear Calc Estimated GFR Glucose POC Capillary Glucose 122 H 107 H Calcium Phosphorus Magnesium Total Bilirubin AST ALT Alkaline Phosphatase Total Protein Albumin Angiotensin Convert Enz Vitamin A Ur Random Creatinine Ur Random Calcium Calcium/Creat Ratio Vancomycin Trough 09/11/24 04:42 WBC 38.7 H RBC 2.69 L Hgb 8.1 L Hct 25.5 L MCV 94.8 MCH 30.1 MCHC 31.8 L RDW 20.6 H Plt Count 583 H MPV 11.5 H Immature Gran % (Auto) Not Reportable Neut % (Auto) Not Reportable Lymph % (Auto) Not Reportable [place] % (Auto) Not Reportable Eos % (Auto) Not Reportable Baso % (Auto) Not Reportable Lymph # (Auto) Not Reportable [place] # (Auto) Not Reportable Eos # (Auto) Not Reportable Baso # (Auto) Not Reportable Abs Immat Gran (auto) Not Reportable Absolute Neuts (auto) Not Reportable Absolute Nucleated RBC Not Reportable Total Counted 100 Neutrophils % (Manual) 78 H Band Neutrophils % 3 Lymphocytes % (Manual) 9.0 L Monocytes % (Manual) 9 Metamyelocytes % 1 Nucleated RBC % Not Reportable Abs Neuts (Manual) 31.34 H Abs Lymphs (Manual) 3.48 Abs Monocytes (Manual) 3.48 H Platelet Estimate Increased Hypochromasia 2+ Anisocytosis 1+ Stomatocytes 1+ Schistocytes None seen Puncture Site ABG pH ABG pCO2 ABG pO2 ABG PO2/FiO2 Ratio ABG HCO3 ABG O2 Saturation ABG O2 Content ABG Base Excess A-a Gradient Oxyhemoglobin Total Hemoglobin O2 Delivery Device O2 Liters/Min Minute Volume FiO2 Peak Inspir Pressure Pressure Support Sodium 143 Potassium 2.9 L Chloride 111 H Carbon Dioxide 28 Anion Gap 4 BUN 63 H D Creatinine 0.97 Estim Creat Clear Calc 38 Estimated GFR 57 L Glucose 111 H POC Capillary Glucose Calcium 9.0 Phosphorus 4.3 Magnesium 1.7 Total Bilirubin 0.6 AST 89 H ALT 51 H Alkaline Phosphatase 127 H Total Protein 5.9 L Albumin 2.7 L Angiotensin Convert Enz Vitamin A Ur Random Creatinine Ur Random Calcium Calcium/Creat Ratio Vancomycin Trough 13.9 Quality VTE Prophylaxis VTE prophylaxis: pharmacologic ordered
[2024-09-11] MEDS: MINERAL OIL/WHITE PETROLATUM OINTMENT 1 APPLIC EACH EYE ×2 (09:59→20:21)
--- NOTE | 2024-09-11 10:16 | PCNFU ---
Nutrition Follow-Up Complete: Increased energy expenditure related to severe sepsis, mechanical ventilation as evidenced by need for tube feeding ~70% EER. Meet estimated nutrition needs - Slowly progressing with tube feeding being restarted at trickle. Continue same goal Goal: Pt current nutrition is Vital 1.2 AF @ 40 ml/h - ON HOLD due to poor tolerance. Nutrition recommendation: Restart Vital AF 1.2 @ trickle feeding 20 ml/h to establish tolerance, and advance as tolerated Last recorded weight is 60.5 kg. Bowel Motility: +1 liquid BM per FMS Labs Reviewed: Hgb 8.1, Hct 25.5, Alb 2.7, K+ 2.9, BUN 63, Glu 111 Meds Noted: Reglan, precedex, Bumex Skin: Stage 3 coccyx Additional Notes: Tube feeding on hold because of high residuals. Discussed in rounds with RN to restart at 20 ml/h. Pt on Reglan. Continue to monitor Monitoring tube feeding orders, weights, labs, tolerance, plan of care, vent settings, vitals Follow up Tuesday/Tuesday. Daily rounds
--- NOTE | 2024-09-11 11:01 | P.PNNP_ITS ---
Progress Note: A&P Assessment and Plan (1) Azotemia: Code(s): R79.89 - Other specified abnormal findings of blood chemistry Status: Acute Assessment and Plan: * slow improvement noted * as noted by labs on 09/05 * suspect multifactorial: * high catabolic state * steroid use * infection * critical illness * previous FRANK/ARF * no evidence of GI bleed * fractional excretion of urea and FeNa are nonprerenal by urine electrolytes * follow trend of repeat labs (2) Acute respiratory failure: Code(s): J96.00 - Acute respiratory failure, unspecified whether with hypoxia or hypercapnia Status: Acute Assessment and Plan: * secondary to bilateral Pseudomonas pneumonia in an immunocompromised patient who was on methotrexate and hydroxychloroquine. * ARDS physiology noted * bronchoscopy (08/31) which did not show any LR hemorrhage or tracheobronchitis * BAL culture is growing Pseudomonas and Milagros glabrata * PCR for influenza RSV and COVID was negative * culture data negative to date * on stress dose steroids (3) Pneumonia: Qualifiers: Laterality: bilateral Lung location: unspecified part of lung P neumonia type: due to unspecified organism Qualified Code(s): J18.9 - Pneumonia, unspecified organism Code(s): J18.9 - Pneumonia, unspecified organism Status: Acute Assessment and Plan: * as noted by recent imaging * see #2 * on antibiotics (4) Rheumatoid arthritis: Code(s): M06.9 - Rheumatoid arthritis, unspecified Status: Acute Assessment and Plan: * holding methotrexate and hydroxychloroquine (5) Hypercalcemia: Code(s): E83.52 - Hypercalcemia Status: Acute Assessment and Plan: * improving * s/p calcitonin and pamidronate * follow repeat calcium levels (6) Hypernatremia: Code(s): E87.0 - Hyperosmolality and hypernatremia Status: Acute Assessment and Plan: * slow improvement * getting D5W IVFs * follow trend of sodium (7) Toxic metabolic encephalopathy: Code(s): G92.8 - Other toxic encephalopathy Status: Acute Assessment and Plan: * presented with altered mental status and confusion * Head CT was negative * TSH was normal * calcium a bit high (see #5) * reassess when off ventilator (8) Peripheral ischemia: Code(s): I99.8 - Other disorder of circulatory system Status: Acute Assessment and Plan: * discoloration/gangrene of all 10 fingers. * likely systemic presentation suggest against vascular clot, septic emboli, pseudomonal infection * improving, also blistering noted on some of the fingers, continue to monitor (9) Swelling of both upper extremities: Code(s): M79.89 - Other specified soft tissue disorders Status: Acute Assessment and Plan: * secondary to edema as it is bilateral * however, ultrasound of UEs showed extensive deep and superficial venous thrombosis throughout the bilateral upper extremities * on Lovenox (10) Hypoglycemia: Code(s): E16.2 - Hypoglycemia, unspecified Status: Acute Assessment and Plan: * noted earlier * blood sugars are stable now Nothing much else to add from renal perspective -- will follow from a distance. L Subjective Date/time seen: 09/11/24 11:01 Interval history: Follow-up for elevated blood urea nitrogen/azotemia. No real significant change noted since last seen -- remains intubated/sedated and on mechanical ventilation; continues to make good urine output with IV diuretic therapy; BUN, sodium and calcium all appear to be improving/stabilizing; febrile with a Tmax of 101.7 degrees. Exam 2 Narrative: General: elderly but WD/WN female intubated/sedated and on mechanical ventilation Heart: tachycardic, normal S1 and S2 Lungs: coarse upper airway sounds Abdomen: soft, nontender, + bowel sounds Extremities: bilateral edema in UEs Skin: scattered healing wounds over LEs; bilateral finger discoloration improving Objective Data Vital Signs Vital Signs: Vital Signs Temp Pulse Resp BP Pulse Ox O2 Del Method FiO2 09/11/24 11:00 149 H 100 Mechanical Ventilation 09/11/24 10:00 152 H 35 H 141/66 H 100 09/11/24 09:30 101.7 F H 09/11/24 08:57 101.2 F H 09/11/24 08:57 150 H 09/11/24 08:40 148 H 100 Mechanical Ventilation 09/11/24 08:00 98 Mechanical Ventilation 09/11/24 08:00 30 09/11/24 08:00 101.2 F H 143 H 25 H 169/99 H 100 09/11/24 06:00 128 H 25 H 09/11/24 06:00 128 H 26 H 151/105 H 100 09/11/24 06:00 128 H 07/01/25 04:33 124 H 100 Mechanical Ventilation 09/11/24 04:12 135 H 09/11/24 04:00 98.4 F 131 H 31 H 153/90 H 98 09/11/24 04:00 30 09/11/24 04:00 131 H 09/11/24 04:00 98 Mechanical Ventilation 09/11/24 04:00 135 H 30 H 09/11/24 02:00 124 H 29 H 09/11/24 02:00 124 H 29 H 148/88 H 100 09/11/24 02:00 124 H 09/11/24 01:19 121 H 100 Mechanical Ventilation 09/11/24 01:08 118 H 28 H 09/11/24 00:00 98.3 F 118 H 28 H 144/89 H 99 09/11/24 00:00 30 09/11/24 00:00 99 Mechanical Ventilation 09/11/24 00:00 121 H 09/10/24 23:50 120 H 29 H 09/10/24 23:50 120 H 29 H 09/10/24 22:23 117 H 98 Mechanical Ventilation 09/10/24 22:00 117 H 29 H 139/88 99 09/10/24 22:00 117 H 09/10/24 22:00 117 H 29 H 09/10/24 20:36 116 H 09/10/24 20:14 113 H 99 Mechanical Ventilation 09/10/24 20:00 115 H 29 H 09/10/24 20:00 97.4 F L 115 H 29 H 156/82 H 98 09/10/24 20:00 111 H 09/10/24 20:00 09/10/24 20:00 98 Mechanical Ventilation 09/10/24 18:00 116 H 09/10/24 18:00 99.0 F 115 H 25 H 145/84 H 100 09/10/24 17:05 115 H 97 Mechanical Ventilation 09/10/24 16:00 112 H 09/10/24 16:00 100 Mechanical Ventilation 09/10/24 16:00 09/10/24 16:00 114 H 27 H 09/10/24 16:00 98.6 F 115 H 27 H 143/83 H 100 09/10/24 14:42 117 H 97 Mechanical Ventilation 09/10/24 14:00 116 H 24 H 09/10/24 14:00 108 H 09/10/24 14:00 109 H 24 H 158/89 H 100 Intake/Output Intake/Output: Intake & Output 09/08/24 09/09/24 09/10/24 09/11/24 23:59 23:59 23:59 23:59 Intake Total 4375.8 3442.7 3859.5 468.5 Output Total 3900 4160 3050 2300 Balance 475.8 -717.3 809.5 -1831.5 Meds/Results Medications: Active Medications Generic Name Dose Route Start Last Admin Trade Name Freq PRN Reason Stop Dose Admin Acetaminophen 650 mg 08/29/24 18:17 09/11/24 08:57 Acetaminophen 325 Mg Tablet PO 650 mg Q4H PRN Administration Mild Pain (1-3) or Fever Acetaminophen 650 mg 08/30/24 00:43 08/30/24 06:56 Acetaminophen 650 Mg Suppository RECTAL 650 mg Q6H PRN Administration Mild Pain (1-3) or Fever Bumetanide 1 mg 09/12/24 09:00 Bumetanide Inj 1 Mg/4 Ml Vial IV PUSH QAM RHYS Dextrose 12.5 gm 08/29/24 20:42 08/31/24 20:55 Dextrose 50% 25 Gm/50 Ml Syringe IV PUSH 12.5 gm PRN PRN Administration Hypoglycemia Protocol Enoxaparin Sodium 60 mg 09/03/24 11:35 09/10/24 23:50 Enoxaparin 60 Mg/0.6 Ml Syringe SUB-Q 60 mg Q12H RHYS Administration Glucagon 1 mg 08/29/24 20:42 Glucagon For Inj 1 Mg Vial IM PRN PRN Hypoglycemia Protocol Glucose 15 gm 08/29/24 20:42 Glucose Oral Gel 15 Gm Of Glucse In 37.5 Gm Tube PO PRN PRN Hypoglycemia Protocol Hydralazine HCl 10 mg 09/08/24 15:05 09/09/24 00:43 Hydralazine Hcl 20 Mg/Ml Vial IV PUSH 10 mg Q4HR PRN Administration Blood Pressure - High Hydrocortisone Sodium Succinate 20 mg 09/03/24 09:00 09/11/24 08:57 Hydrocortisone Sodium Succinate 100 Mg/2 Ml Vial IV PUSH 20 mg QAM RHYS Administration Dextrose 1,000 mls @ 100 mls/hr 08/29/24 20:42 Dextrose 5% 1,000 Ml IVPB PRN PRN Hypoglycemia Protocol Micafungin Sodium 100 mg/ 100 mls @ 100 mls/hr 09/04/24 10:20 09/10/24 10:16 Sodium Chloride IVPB Infused DAILY [facility]YS Infusion Levofloxacin/Dextrose 750 mg in 150 mls @ 100 mls/hr 09/05/24 09:00 09/11/24 08:59 Levaquin 750 Mg/D5w 150 Ml IVPB 100 mls/hr Q48H [facility]YS Administration Meropenem 1 gm in 100 mls @ 200 mls/hr 09/06/24 11:00 09/10/24 21:10 IVPB Infused Q12HR [facility]YS Infusion Dexmedetomidine HCl 400 mcg in 100 mls @ 2.98 mls/hr 09/06/24 14:00 09/11/24 06:00 Precedex 400 Mcg/100 Ml IV CONT 0.2 mcg/kg/hr .[id number] RHYS 2.98 mls/hr Titration Protocol 0.2 MCG/KG/HR Vancomycin HCl 1,250 mg in 250 mls @ 166.667 mls/hr 09/11/24 08:00 09/11/24 08:58 Vancomycin 1,250 Mg/Ns 250 Ml IVPB 166.67 mls/hr Q24H [facility]YS Administration Insulin Aspart 3 - 6 units 09/09/24 00:00 09/11/24 05:36 Insulin Aspart (*Bkc) 100 Units/Ml SUB-Q Not Given Q6HR [facility] Protocol Metoclopramide HCl 10 mg 09/01/24 08:00 09/11/24 05:36 Metoclopramide Hcl 10 Mg/10 Ml Soln Udc FEED TUBE 10 mg Q6HR [facility]YS Administration Metoprolol Tartrate 5 mg 09/08/24 11:07 09/11/24 04:12 Metoprolol Tartrate Inj 5 Mg/5 Ml Vial IV PUSH 5 mg Q6H PRN Administration HR>130 Metoprolol Tartrate 25 mg 09/11/24 21:00 Metoprolol Tartrate 25 Mg Tablet FEED TUBE Q12HR [facility] Multi-Ingred Cream/Lotion/Oil/Oint 1 applic 08/30/24 10:20 09/10/24 20:37 Mineral Oil/White Petrolatum Ointment EACH EYE 1 applic Q12HR [facility]YS Administration Pantoprazole Sodium 40 mg 08/30/24 10:40 09/10/24 20:37 Pantoprazole Sodium Iv 40 Mg Vial IV PUSH 40 mg Q12HR [facility]YS Administration Prednisolone Acetate 1 drop 08/30/24 21:00 09/10/24 20:37 Prednisolone Acetate 1% Ophth 5 Ml RIGHT EYE 1 drop Q12HR [facility] Administration Sodium Chloride 10 ml 08/30/24 12:17 Central Line Flush IV PUSH PRN PRN with TPN bag changes Sodium Chloride 20 ml 08/30/24 12:17 09/10/24 05:46 Central Line Flush IV PUSH 20 ml PRN PRN Administration after blood draws Sodium Chloride 10 ml 09/04/24 22:00 09/11/24 05:36 Central Line Flush IV PUSH 10 ml Q8HR [facility]YS Administration Sodium Chloride 20 ml 09/04/24 12:30 09/09/24 04:45 Central Line Flush IV PUSH 20 ml PRN PRN Administration after blood draws Radiology Results: ITS Impressions Abdomen X-Ray 08/30/24 11:02 IMPRESSION: Bilateral pneumonia. Differential include pulmonary edema. Venous Doppler Study 09/03/24 10:50 IMPRESSION: 1. Extensive deep and superficial venous thrombosis throughout the bilateral upper lungs as detailed above. Findings were discussed with Jacinto Victor, the nurse caring for the patient, at 10:59 AM. ADDENDUM: 09/03/24 1400 CORRECTION: There is a dictation error in the impression section. With the correction capitalized this should read- Extensive deep and superficial venous thrombosis throughout the bilateral upper LIMBS as detailed above. Head CT 09/09/24 15:44 IMPRESSION: Large acute bilateral occipital lobe infarcts. Multifocal bilateral cerebellar infarcts. Focal bilateral thalamic acute infarcts. Results reported telephonically to Halle Browning RN by Dr. Campos at 3:48 PM on 09/09/2024. Chest/Abdomen/Pelvis CT 09/09/24 15:56 IMPRESSION: Endotracheal tube terminates 2.5 cm above the sun. Right IJ central line terminates in the right atrium. CT findings suggestive of right lower lobe pneumonia. Additional patchy bilateral groundglass and reticular opacities may represent edema or multifocal infection, to include atypical variants. Small bilateral pleural effusions. Asymmetric chest wall edema, greater on the right. Correlate for signs of infection. Subacute pelvic and sacral fractures. Chest X-Ray 09/11/24 05:49 Impression: Hazy bilateral airspace disease at the lung bases. Correlate for pulmonary edema versus pneumonia. Probable underlying COPD or chronic interstitial change. Support tubes, as above. Labs Labs: Laboratory Tests 09/11/24 04:42 09/11/24 04:42 Calcium 9.0 Phosphorus 4.3 Magnesium 1.7 Total Bilirubin 0.6 AST 89 H ALT 51 H Alkaline Phosphatase 127 H Total Protein 5.9 L Albumin 2.7 L Vancomycin Trough 13.9
[2024-09-11] MEDS: ENOXAPARIN 60 MG/0.6 ML SYRINGE SUB-Q (14:15)
[2024-09-11 14:35] LABS: Hematocrit 24.2 % (37.0-47.0); Hemoglobin 7.6 g/dL (12.0-15.0); Mean Corpuscular HGB Conc 31.4 g/dl (32-36); Mean Corpuscular Hemoglobin 29.8 pg (26-34); Mean Corpuscular Volume 94.9 fl (80-100); Platelet Count Result 508 k/mm3 (150-375); Red Blood Count 2.55 M/mm3 (4.2-5.4); White Blood Count 40.1 K/mm3 (4.5-10.0)
[2024-09-11 14:37] LABS: Add Urine Microscopic? YES; Appearance Urine Cloudy (Clear); Glucose Urine UA Negative (Negative); Leukocyte Esterase Ur Negative LEU/UL (Negative); Nitrate Urine Negative (Negative); Specific Grav Ur 1.012 (1.001-1.035)
[2024-09-11 14:48] LABS: Alanine Aminotransferase 43 U/L (6-35); Albumin Level 2.7 g/dL (3.5-5.1); Alkaline Phosphatase 117 U/L (38-126); Aspartate Amino Transferase 75 U/L (14-36); Bilirubin,Total 0.6 mg/dL (0.2-1.3); Total Protein 5.7 g/dL (6.3-8.2)
[2024-09-11 14:49] LABS: Anion Gap 6 mmol/L (4-12); Blood Urea Nitrogen 61 mg/dL (7-17); Calcium 8.9 mg/dL (8.4-10.2); Carbon Dioxide 27 mmol/L (22-30); Chloride 113 mmol/L (98-107); Estimated CRCL calculation 37 ml/min; Estimated Glomerular Filt Rate 55; Glucose 112 mg/dL (65-110); Magnesium 2.2 mg/dL (1.6-2.3); Potassium 4.0 mmol/L (3.4-5.0); Sodium 146 mmol/L (137-145)
[2024-09-11 14:56] LABS: INR 1.4; Prothrombin Time 17.0 Seconds (11.1-14.7)
[2024-09-11 14:57] LABS: Partial Thromboplastin Time 40.0 Seconds (22.3-36.8)
[2024-09-11] MEDS: dexmedeTOMIDine 400 MCG/100 ML 400 MCG/100 ML BAG 10.43 MCG IV CONT (18:06)
[2024-09-11 20:15] LABS: Hematocrit 22.7 % (37.0-47.0); Hemoglobin 7.1 g/dL (12.0-15.0); Mean Corpuscular HGB Conc 31.3 g/dl (32-36); Mean Corpuscular Hemoglobin 30.0 pg (26-34); Mean Corpuscular Volume 95.8 fl (80-100); Platelet Count Result 475 k/mm3 (150-375); Red Blood Count 2.37 M/mm3 (4.2-5.4); White Blood Count 41.5 K/mm3 (4.5-10.0)
[2024-09-11] MEDS: METOPROLOL TARTRATE 25 MG TABLET FEED TUBE (20:21)
[2024-09-11 20:25] LABS: INR 1.4; Prothrombin Time 17.1 Seconds (11.1-14.7)
[2024-09-11 20:26] LABS: Alanine Aminotransferase 41 U/L (6-35); Albumin Level 2.6 g/dL (3.5-5.1); Alkaline Phosphatase 107 U/L (38-126); Anion Gap 5 mmol/L (4-12); Aspartate Amino Transferase 73 U/L (14-36); Bilirubin,Total 0.6 mg/dL (0.2-1.3); Blood Urea Nitrogen 61 mg/dL (7-17); Calcium 8.7 mg/dL (8.4-10.2); Carbon Dioxide 28 mmol/L (22-30); Chloride 114 mmol/L (98-107); Estimated CRCL calculation 33 ml/min; Estimated Glomerular Filt Rate 48; Glucose 112 mg/dL (65-110); Magnesium 2.1 mg/dL (1.6-2.3); Partial Thromboplastin Time 40.5 Seconds (22.3-36.8); Potassium 3.8 mmol/L (3.4-5.0); Sodium 147 mmol/L (137-145); Total Protein 5.6 g/dL (6.3-8.2)
[2024-09-12] VITALS (36 sets, daily range): BP systolic 80–133; BP diastolic 52–82; PULSE 96–119; RESP 20–35; TEMP 37.1–38; O2SAT 93–100
[2024-09-12] MEDS: METOCLOPRAMIDE HCL 10 MG/10 ML SOLN UDC FEED TUBE ×5 (00:28→23:37)
[2024-09-12] MEDS: ENOXAPARIN 60 MG/0.6 ML SYRINGE SUB-Q ×3 (01:43→23:37)
[2024-09-12 02:17] LABS: Hematocrit 21.3 % (37.0-47.0); Mean Corpuscular HGB Conc 30.5 g/dl (32-36); Mean Corpuscular Hemoglobin 29.3 pg (26-34); Mean Corpuscular Volume 95.9 fl (80-100); Platelet Count Result 484 k/mm3 (150-375); Red Blood Count 2.22 M/mm3 (4.2-5.4); White Blood Count 39.6 K/mm3 (4.5-10.0)
[2024-09-12 02:20] LABS: Hemoglobin 6.5 g/dL (12.0-15.0)
[2024-09-12 02:29] LABS: INR 1.4; Prothrombin Time 17.6 Seconds (11.1-14.7)
[2024-09-12 02:30] LABS: Alanine Aminotransferase 38 U/L (6-35); Albumin Level 2.5 g/dL (3.5-5.1); Alkaline Phosphatase 105 U/L (38-126); Anion Gap 7 mmol/L (4-12); Aspartate Amino Transferase 62 U/L (14-36); Bilirubin,Total 0.4 mg/dL (0.2-1.3); Blood Urea Nitrogen 61 mg/dL (7-17); Calcium 8.5 mg/dL (8.4-10.2); Carbon Dioxide 26 mmol/L (22-30); Chloride 116 mmol/L (98-107); Estimated CRCL calculation 32 ml/min; Estimated Glomerular Filt Rate 47; Glucose 115 mg/dL (65-110); Magnesium 2.0 mg/dL (1.6-2.3); Partial Thromboplastin Time 43.1 Seconds (22.3-36.8); Potassium 3.8 mmol/L (3.4-5.0); Sodium 149 mmol/L (137-145); Total Protein 5.6 g/dL (6.3-8.2)
[2024-09-12] MEDS: SODIUM CHLORIDE 0.9% IV 250 ML 30 ML IV CONT (03:01)
[2024-09-12 03:24] LABS: GGT 62 U/L (3-65)
[2024-09-12] MEDS: dexmedeTOMIDine 400 MCG/100 ML 400 MCG/100 ML BAG 11.92 MCG IV CONT (04:20)
[2024-09-12 05:09] LABS: Alveolar/Arterial O2 Gradient 73.6 mmHg; Fractional Inspired Oxygen 30 %; HCO3 ABG 25.1 mEq/l (22.0-26.0); Oxygen Content ABG 13.3 %vol (16.0-22.0); Oxygen Saturation ABG 98.3 % (95.0-100.0); PCO2 ABG 30.9 mmHg (35.0-45.0); PO2 ABG 104.0 mmHg (80.0-100.0); PO2 FiO2 Ratio Arterial Blood 3.47 %
[2024-09-12 05:10] LABS: Arterial Blood Gas Tidal Volume 300 ml; Arterial Blood Gas Ventilator rate 18 /MIN; Modified Allen's Test Unable to perform; Site Drawn RIGHT RADIAL
[2024-09-12 06:29] LABS: GGT 56 U/L (3-65)
[2024-09-12] MEDS: CENTRAL LINE FLUSH 10 ML IV PUSH ×3 (06:36→20:20)
[2024-09-12 06:41] LABS: Hematocrit 25.5 % (37.0-47.0); Hemoglobin 8.0 g/dL (12.0-15.0); Mean Corpuscular HGB Conc 31.4 g/dl (32-36); Mean Corpuscular Hemoglobin 29.1 pg (26-34); Mean Corpuscular Volume 92.7 fl (80-100); Platelet Count Result 422 k/mm3 (150-375); Red Blood Count 2.75 M/mm3 (4.2-5.4); White Blood Count 34.9 K/mm3 (4.5-10.0)
[2024-09-12 06:53] LABS: Alanine Aminotransferase 36 U/L (6-35); Albumin Level 2.5 g/dL (3.5-5.1); Alkaline Phosphatase 103 U/L (38-126); Anion Gap 5 mmol/L (4-12); Aspartate Amino Transferase 61 U/L (14-36); Bilirubin,Total 0.4 mg/dL (0.2-1.3); Blood Urea Nitrogen 60 mg/dL (7-17); Calcium 8.5 mg/dL (8.4-10.2); Carbon Dioxide 28 mmol/L (22-30); Chloride 115 mmol/L (98-107); Estimated CRCL calculation 36 ml/min; Estimated Glomerular Filt Rate 53; Glucose 108 mg/dL (65-110); Magnesium 2.0 mg/dL (1.6-2.3); Potassium 3.4 mmol/L (3.4-5.0); Sodium 148 mmol/L (137-145); Total Protein 5.6 g/dL (6.3-8.2)
[2024-09-12 07:50] LABS: Band Neutrophils Percent 6 % (0-6); Hypersegmented Neutrophils Present; Hypochromasia 1+; Lymphocytes Absolute Manual 4.53 K/mm3 (1.1-4.5); Lymphocytes Percent Manual 13 % (18-44); Monocytes Absolute Manual 2.09 K/mm3 (0.1-0.90); Monocytes Percent Manual 6 % (3-9); Neutrophils Absolute Manual 28.26 K/mm3 (1.3-6.7); Neutrophils Percent Manual 75 % (46-73); Total Cells Counted 100
[2024-09-12 07:51] LABS: Anisocytosis 2+; Schistocytes None Seen
[2024-09-12] MEDS: VANCOMYCIN 1,250 MG/NS 250 ML 1,250 MG/250 ML BAG 166.67 MG IVPB (08:22)
[2024-09-12] MEDS: PANTOPRAZOLE SODIUM IV 40 MG VIAL IV PUSH ×2 (08:31→20:20)
[2024-09-12] MEDS: HYDROCORTISONE SODIUM SUCCINATE 100 MG/2 ML VIAL 20 MG IV PUSH (08:31)
[2024-09-12] MEDS: MEROPENEM 1 GM/NS 100 ML 1 GM/100 ML BAG IVPB ×2 (08:32→20:20)
[2024-09-12] MEDS: MICAFUNGIN SODIUM 100 MG in SODIUM CHLORIDE 0.9% IV 100 ML IVPB (08:32)
[2024-09-12] MEDS: BUMETANIDE INJ 1 MG/4 ML VIAL IV PUSH (08:32)
[2024-09-12] MEDS: METOPROLOL TARTRATE 25 MG TABLET FEED TUBE ×2 (08:32→20:19)
[2024-09-12 08:33] LABS: Hematocrit 26.4 % (37.0-47.0); Hemoglobin 8.3 g/dL (12.0-15.0); Mean Corpuscular HGB Conc 31.4 g/dl (32-36); Mean Corpuscular Hemoglobin 28.9 pg (26-34); Mean Corpuscular Volume 92.0 fl (80-100); Platelet Count Result 478 k/mm3 (150-375); Red Blood Count 2.87 M/mm3 (4.2-5.4); White Blood Count 38.3 K/mm3 (4.5-10.0)
[2024-09-12] MEDS: MINERAL OIL/WHITE PETROLATUM OINTMENT 1 APPLIC EACH EYE ×2 (08:33→20:20)
[2024-09-12] MEDS: prednisoLONE ACETATE 1% OPHTH 5 ML 1 DROP RIGHT EYE ×2 (08:33→20:20)
[2024-09-12 08:49] LABS: Alanine Aminotransferase 37 U/L (6-35); Albumin Level 2.6 g/dL (3.5-5.1); Alkaline Phosphatase 111 U/L (38-126); Anion Gap 9 mmol/L (4-12); Aspartate Amino Transferase 66 U/L (14-36); Bilirubin,Total 0.4 mg/dL (0.2-1.3); Blood Urea Nitrogen 60 mg/dL (7-17); Calcium 8.8 mg/dL (8.4-10.2); Carbon Dioxide 26 mmol/L (22-30); Chloride 115 mmol/L (98-107); Estimated CRCL calculation 33 ml/min; Estimated Glomerular Filt Rate 48; Glucose 114 mg/dL (65-110); Magnesium 2.1 mg/dL (1.6-2.3); Potassium 3.2 mmol/L (3.4-5.0); Sodium 150 mmol/L (137-145); Total Protein 5.6 g/dL (6.3-8.2)
[2024-09-12 08:56] LABS: INR 1.4; Prothrombin Time 17.4 Seconds (11.1-14.7)
[2024-09-12 08:58] LABS: Partial Thromboplastin Time 46.6 Seconds (22.3-36.8)
[2024-09-12 08:58] LABS: Vitamin D 1,25 (OH)2 Total 38 pg/mL (18-72); Vitamin D2 1,25 (OH)2 <8 pg/mL; Vitamin D3 1,25 (OH)2 38 pg/mL
--- NOTE | 2024-09-12 09:29 | WPDINTPN ---
Progress Note: A&P Assessment and Plan (1) Encephalopathy: Code(s): G93.40 - Encephalopathy, unspecified Status: Acute Assessment and Plan: Patient has been off sedation for more than 72 hours, remains on Precedex infusion. Patient has not been waking up. -09/09/2024: CT scan of the brain: Large acute bilateral occipital lobe infarcts. Multifocal bilateral cerebellar infarcts. Focal bilateral thalamic acute infarcts. -patient evaluated by Neurology -patient remains on therapeutic Lovenox for bilateral upper extremity DVTs -Neurology discussed with family and relayed that prognosis was dismal -continue Precedex to alleviate tachypnea tachycardia (2) Acute respiratory failure: Code(s): J96.00 - Acute respiratory failure, unspecified whether with hypoxia or hypercapnia Status: Acute Assessment and Plan: Acute respiratory failure and sepsis secondary to bilateral Pseudomonas pneumonia in an immunocompromised patient who was on methotrexate and hydroxychloroquine. -ARDS physiology -08/30: Intubated for tachypnea, tachycardia, respiratory distress 08/31: bronchoscopy which did not show any LR hemorrhage or tracheobronchitis 08/31: BAL culture is growing Pseudomonas which is pansensitive. Also Milagros glabrata -08/29: Blood culture negative -08/20: sputum culture negative -09/04: Repeat blood cultures are negative PCR for influenza RSV and COVID was negative Urine Legionella negative and pneumococcal antigen negative Negative Mycoplasma IgM Patient on low-dose hydrocortisone as patient has been on chronic steroid use at home -09/04: Patient placed in prone position due to increased oxygen requirements secondary to ARDS and Pseudomonas pneumonia. Patient was also paralyzed with rocuronium and started on Nimbex infusion for ventilator synchrony 09/05: prone position, ABGs reviewed, ventilator adjusted. Patient will be placed in supine position, off Nimbex infusion 09/06: Patient was placed in supine position yesterday and remains in supine position this morning. Currently on 45% FiO2 and peep of 12 with good O2 sats. I have asked the bedside RN to start weaning sedation, start Precedex infusion if needed 09/06: . Given that patient's WBC count is elevated will switch cefepime to meropenem (09/06). Elevated WBC count could also be related to steroids 09/07: Continue meropenem and Levaquin, WBC count trending down, continue to monitor. Chest x-ray also improving 6/28: WBC count remains elevated, add vancomycin. Weaned PEEP to 8 and FiO2 to 35% 09/09: Place patient on pressure support ventilation 10/5, tolerated for about 4 hours after which she got tachypneic tachycardic was switched to CMV mode of ventilation. 09/10: Continue meropenem, vancomycin, micafungin and Levaquin 08/29 CT Chest Dense bilateral multifocal infiltrates, predominantly perihilar, as detailed above. No additional source is detected for patient's profound sepsis (3) Gastroesophageal reflux disease: Qualifiers: Esophagitis presence: esophagitis presence not specified Qualified Code(s): K21.9 - Gastro-esophageal reflux disease without esophagitis Code(s): K21.9 - Gastro-esophageal reflux disease without esophagitis Status: Acute Assessment and Plan: PPI q.12 hours (4) FRANK (acute kidney injury): Code(s): N17.9 - Acute kidney failure, unspecified Status: Acute Assessment and Plan: Patient presented with elevated creatinine which was likely secondary to sepsis. Creatinine improved with IV fluids Cut down on further IV fluids and patient was given IV fluids Urine output improved. Creatinine in normal range maintain map above 65 mmHg Monitor urine output electrolytes and creatinine Patient has received Lasix, Bumex, Diuril Obregon catheter for accurate I&Os Increased BUN and hypercalcemia -discussed with Nephrology, continue diuresis -09/07: hypercalcemia: Received calcitonin and pamidronate along with diuretic. Effect of pamidronate takes place within 72 hours, Calcium levels improved and normalized continue to monitor Hold Bumex (5) Sepsis: Qualifiers: Sepsis acute organ dysfunction status: with acute organ dysfunction Sepsis type: sepsis due to unspecified organism Severe sepsis acute organ dysfunction type: encephalopathy Severe sepsis shock status: without septic shock Qualified Code(s): A41.9 - Sepsis, unspecified organism; R65.20 - Severe sepsis without septic shock; G93.41 - Metabolic encephalopathy Code(s): A41.9 - Sepsis, unspecified organism Status: Acute Assessment and Plan: See above (6) Immunosuppressed status: Code(s): D89.9 - Disorder involving the immune mechanism, unspecified Status: Acute Assessment and Plan: Patient was on steroids and immunosuppressants at home (7) Rheumatoid arthritis: Code(s): M06.9 - Rheumatoid arthritis, unspecified Status: Acute Assessment and Plan: Hold methotrexate and hydroxychloroquine (8) Pneumonia: Qualifiers: Laterality: bilateral Lung location: unspecified part of lung Pneumonia type: due to unspecified organism Qualified Code(s): J18.9 - Pneumonia, unspecified organism Code(s): J18.9 - Pneumonia, unspecified organism Status: Acute Assessment and Plan: See above (9) Urinary tract infection: Qualifiers: Hematuria presence: with hematuria Urinary tract infection type: site unspecified Qualified Code(s): N39.0 - Urinary tract infection, site not specified; R31.9 - Hematuria, unspecified Code(s): N39.0 - Urinary tract infection, site not specified Status: Acute Assessment and Plan: UA suggestive of UTI 08/29: Urine cultures - negative (10) Herpes labialis: Code(s): B00.1 - Herpesviral vesicular dermatitis Status: Acute Assessment and Plan: Received acyclovir through tube earlier in the code (11) Hypoglycemia: Code(s): E16.2 - Hypoglycemia, unspecified Status: Acute Assessment and Plan: Resolved (12) Ileus: Code(s): K56.7 - Ileus, unspecified Status: Acute Assessment and Plan: Bowel sounds absent. Tube feeds on hold. Continue Reglan Continue tube feeds at 20 mL/hour (13) Peripheral ischemia: Code(s): I99.8 - Other disorder of circulatory system Status: Acute Assessment and Plan: Patient has developed discoloration/gangrene of all 10 fingers. likely systemic presentation suggest against vascular clot but more like DIC or septic emboli from pseudomonal infection Radial pulses are dopplerable Blood pressure are on the higher side Monitor maintain mean arterial pressure above 65 mmHg -discoloration on her fingers are improving, also blistering noted on some of the fingers, continue to monitor (14) Swelling of both upper extremities: Code(s): M79.89 - Other specified soft tissue disorders Status: Acute Assessment and Plan: Likely secondary to edema as it is bilateral 09/03: Bilateral upper extremity venous Doppler showed extensive deep and superficial venous thrombosis throughout the bilateral upper extremities -continue therapeutic Lovenox IV q.12 hours (15) Anemia: Qualifiers: Anemia type: unspecified type Qualified Code(s): D64.9 - Anemia, unspecified Code(s): D64.9 - Anemia, unspecified Status: Acute Assessment and Plan: 09/08: Hemoglobin 7.0, will transfuse 1 unit of packed RBC Hemoglobin remains stable, continue to monitor, transfuse if hemoglobin < 7.0 09/02: Patient also received 1 unit of packed RBCs for hemoglobin of 6.9 09/12 patient was given 1 unit of PRBC last night (16) Electrolyte imbalance: Code(s): E87.8 - Other disorders of electrolyte and fluid balance, not elsewhere classified Status: Acute Assessment and Plan: Potassium replacement ordered (17) Tachycardia: Code(s): R00.0 - Tachycardia, unspecified Status: Acute Assessment and Plan: Metoprolol per tube and p.r.n. IV metoprolol Plan DVT prophylaxis -continue therapeutic Lovenox Stress ulcer prophylaxis -Protonix IV q.12 hours Nutrition -tube feeds will be continued at current rate continue Reglan, Code Status -family has decided to proceed with palliative extubation and comfort care with organ donation on09/13. Patient's brother is will come visit her today. MTS is on the case and currently directing evaluation and testing they need for evaluation for organ donation. At this point we are trying to continue supportive care until tomorrow. Patient is DNR with plan for DCD at 11:00 a.m. on 09/13 I met with patient's ex- at bedside today and answered all his questions. Total Critical Care Time - 32 minutes Due to a high probability of clinically significant, life threatening deterioration, the patient required my highest level of preparedness to intervene emergently and I personally spent this critical care time directly and personally managing the patient. This critical care time included obtaining a history; examining the patient; pulse oximetry; ordering and review of studies; arranging urgent treatment with development of a management plan; evaluation of patient's response to treatment; frequent reassessment; and discussions with other providers. It was exclusive of separately billable procedures and treating other patients and teaching time. Please see Assessment and Plan section and the rest of the note for further information on patient assessment and treatment Subjective Date/time seen: 09/12/24 0 No significant change overnight. Patient continues to be on mechanical ventilation. Patient continues to be on Precedex infusion for tachycardia tachypnea and discomfort Family planning to proceed with palliative extubation, comfort care and or ventilation tomorrow at 11:00 a.m.. MTS is on the case and currently reacting testing and evaluation for organ donation Tachycardia has improved after going up on Precedex rate. Patient is still having low-grade fevers Tube feeds at 20 mL/hour Urine output is adequate Review of Systems Review of Systems: ROS unobtainable: Yes unobtainable due to endotracheal tube, unobtainable due to medical condition and unobtainable due to mental status Exam Narrative: General: Pt is now sedated, intubated, HEENT: Pupils equal and reactive, sclera is clear, ETT in place, tongue is swollen Lungs/Chest: Coarse breath sounds bilaterally, decreased at bases, no wheezing, tachypnea Cardiac: Tachycardia RRR. Normal S1 S2. No murmurs Circulation: Bilateral radial pulses dopplerable and bilateral pedal pulses are palpable, Abdomen: Abscess bowel sounds. Soft. Extremities: edema of bilateral upper extremities with gauze wrapped around them due to weeping, blisters on multiple fingers : Obregon in place Neurologic: Intubated, Precedex infusion, some movement of eyelids on on sternal stimulation, no response and extremities to pain Skin: Bilateral upper extremity skin breakdown and weeping along with edema She also has several scabbed wounds on her both legs which are in various healing stage but no open or infected wound. All 10 fingers discoloration is improving, blisters on some of the fingers. Tips of the fingers are cold and gangrene. Swelling of the hands noted. No discoloration noted on the toes bilaterally, Objective Data Vital Signs Vital Signs: Vital Signs - 24 hr 09/11/24 09:30 09/11/24 10:09/11/24 10:00 Temperature 38.7 C H Pulse Rate 152 H 136 H Respiratory Rate 35 H 25 H Blood Pressure 141/66 H Pulse Oximetry 100 Oxygen Delivery Fraction of Inspired Oxygen 09/11/24 10:09/11/24 11:00 09/11/24 12:00 Temperature Pulse Rate 130 H 149 H Respiratory Rate Blood Pressure Pulse Oximetry 100 Oxygen Delivery Mechanical Ventilation Fraction of Inspired Oxygen 30 09/11/24 12:09/11/24 12:09/11/24 12:00 Temperature 38.7 C H Pulse Rate 138 H 135 H Respiratory Rate 40 H 26 H Blood Pressure 116/78 Pulse Oximetry 98 100 Oxygen Delivery Mechanical Ventilation Fraction of Inspired Oxygen 09/11/24 12:09/11/24 13:50 09/11/24 14:00 Temperature 38.2 C H Pulse Rate 139 H 136 H 132 H Respiratory Rate 28 H Blood Pressure 115/92 H Pulse Oximetry 100 100 Oxygen Delivery Mechanical Ventilation Fraction of Inspired Oxygen 30 09/11/24 14:00 09/11/24 14:00 09/11/24 16:00 Temperature 38.1 C H Pulse Rate 132 H 124 H 129 H Respiratory Rate 25 H 28 H Blood Pressure 128/83 Pulse Oximetry 90 Oxygen Delivery Fraction of Inspired Oxygen 09/11/24 16:00 09/11/24 16:00 09/11/24 16:00 Temperature Pulse Rate 124 H 121 H Respiratory Rate 28 H 24 H Blood Pressure Pulse Oximetry 90 Oxygen Delivery Mechanical Ventilation Fraction of Inspired Oxygen 30 30 09/11/24 16:14 09/11/24 17:04 09/11/24 18:00 Temperature 37.9 C H Pulse Rate 130 H 124 H 125 H Respiratory Rate 32 H Blood Pressure 106/79 Pulse Oximetry 90 98 Oxygen Delivery Mechanical Ventilation Fraction of Inspired Oxygen 30 09/11/24 18:00 09/11/24 18:00 09/11/24 18:06 Temperature Pulse Rate 121 H 121 H 125 H Respiratory Rate 24 H 26 H Blood Pressure Pulse Oximetry Oxygen Delivery Fraction of Inspired Oxygen 09/11/24 19:55 09/11/24 20:00 09/11/24 20:00 Temperature Pulse Rate 123 H Respiratory Rate Blood Pressure Pulse Oximetry 97 96 Oxygen Delivery Mechanical Ventilation Mechanical Ventilation Fraction of Inspired Oxygen 30 30 30 09/11/24 20:00 09/11/24 20:00 09/11/24 20:00 Temperature 37.7 C H Pulse Rate 124 H 124 H 124 H Respiratory Rate 26 H 26 H Blood Pressure 125/81 Pulse Oximetry 96 Oxygen Delivery Fraction of Inspired Oxygen 09/11/24 20:21 09/11/24 21:00 09/11/24 22:00 Temperature Pulse Rate 124 H 117 H 116 H Respiratory Rate 31 H 26 H Blood Pressure Pulse Oximetry Oxygen Delivery Fraction of Inspired Oxygen 09/11/24 22:00 09/11/24 22:00 09/11/24 23:02 Temperature Pulse Rate 116 H 116 H 112 H Respiratory Rate 26 H Blood Pressure 112/84 Pulse Oximetry 100 99 Oxygen Delivery Mechanical Ventilation Fraction of Inspired Oxygen 30 09/12/24 00:00 09/12/24 00:00 09/12/24 00:00 Temperature 37.8 C H Pulse Rate 115 H Respiratory Rate 27 H Blood Pressure 121/81 Pulse Oximetry 93 96 Oxygen Delivery Mechanical Ventilation Fraction of Inspired Oxygen 30 30 09/12/24 00:00 09/12/24 00:00 09/12/24 02:00 Temperature Pulse Rate 119 H 115 H 110 H Respiratory Rate 29 H 30 H Blood Pressure 108/73 Pulse Oximetry 100 Oxygen Delivery Fraction of Inspired Oxygen 09/12/24 02:00 09/12/24 02:00 09/12/24 02:05 Temperature Pulse Rate 110 H 110 H 116 H Respiratory Rate 30 H Blood Pressure Pulse Oximetry 98 Oxygen Delivery Mechanical Ventilation Fraction of Inspired Oxygen 30 09/12/24 03:01 09/12/24 03:16 09/12/24 04:00 Temperature 38.0 C H 37.7 C H Pulse Rate 113 H 118 H 117 H Respiratory Rate 26 H 30 H 28 H Blood Pressure 117/76 121/77 Pulse Oximetry 99 99 Oxygen Delivery Fraction of Inspired Oxygen 09/12/24 04:00 09/12/24 04:00 09/12/24 04:00 Temperature 37.2 C Pulse Rate 117 H Respiratory Rate 28 H Blood Pressure 119/78 Pulse Oximetry 100 100 Oxygen Delivery Mechanical Ventilation Fraction of Inspired Oxygen 30 30 09/12/24 04:00 09/12/24 04:16 09/12/24 04:20 Temperature 37.2 C Pulse Rate 113 H 113 H 112 H Respiratory Rate 26 H 33 H Blood Pressure 126/76 Pulse Oximetry 99 Oxygen Delivery Fraction of Inspired Oxygen 09/12/24 04:20 09/12/24 04:58 09/12/24 05:00 Temperature Pulse Rate 112 H 111 H 115 H Respiratory Rate 33 H 35 H Blood Pressure Pulse Oximetry 100 Oxygen Delivery Mechanical Ventilation Fraction of Inspired Oxygen 30 09/12/24 05:30 09/12/24 06:00 09/12/24 06:00 Temperature 37.5 C Pulse Rate 110 H 104 H 106 H Respiratory Rate 33 H 24 H Blood Pressure 118/80 127/82 Pulse Oximetry 100 100 Oxygen Delivery Fraction of Inspired Oxygen 09/12/24 06:00 09/12/24 08:00 09/12/24 08:00 Temperature 37.9 C H Pulse Rate 106 H 110 H 110 H Respiratory Rate 22 H 26 H Blood Pressure 133/77 Pulse Oximetry 100 100 Oxygen Delivery Mechanical Ventilation Fraction of Inspired Oxygen 09/12/24 08:32 Temperature Pulse Rate 113 H Respiratory Rate Blood Pressure Pulse Oximetry Oxygen Delivery Fraction of Inspired Oxygen Intake/Output Intake/Output: Intake & Output 09/09/24 09/10/24 09/11/24 09/12/24 23:59 23:59 23:59 23:59 Intake Total 3442.7 3859.5 1142.1 771.7 Output Total 4160 3050 2600 500 Balance -717.3 809.5 -1457.9 271.7 Meds/Results Medications: Active Medications Generic Name Dose Route Start Last Admin Trade Name Freq PRN Reason Stop Dose Admin Acetaminophen 650 mg 08/29/24 18:17 09/11/24 08:57 Acetaminophen 325 Mg Tablet PO 650 mg Q4H PRN Administration Mild Pain (1-3) or Fever Acetaminophen 650 mg 08/30/24 00:43 08/30/24 06:56 Acetaminophen 650 Mg Suppository RECTAL 650 mg Q6H PRN Administration Mild Pain (1-3) or Fever Dextrose 12.5 gm 08/29/24 20:42 08/31/24 20:55 Dextrose 50% 25 Gm/50 Ml Syringe IV PUSH 12.5 gm PRN PRN Administration Hypoglycemia Protocol Enoxaparin Sodium 60 mg 09/03/24 11:35 09/12/24 01:43 Enoxaparin 60 Mg/0.6 Ml Syringe SUB-Q 60 mg Q12H RHYS Administration Glucagon 1 mg 08/29/24 20:42 Glucagon For Inj 1 Mg Vial IM PRN PRN Hypoglycemia Protocol Glucose 15 gm 08/29/24 20:42 Glucose Oral Gel 15 Gm Of Glucse In 37.5 Gm Tube PO PRN PRN Hypoglycemia Protocol Hydralazine HCl 10 mg 09/08/24 15:05 09/09/24 00:43 Hydralazine Hcl 20 Mg/Ml Vial IV PUSH 10 mg Q4HR PRN Administration Blood Pressure - High Hydrocortisone Sodium Succinate 20 mg 09/03/24 09:00 09/12/24 08:31 Hydrocortisone Sodium Succinate 100 Mg/2 Ml Vial IV PUSH 20 mg QAM RHYS Administration Dextrose 1,000 mls @ 100 mls/hr 08/29/24 20:42 Dextrose 5% 1,000 Ml IVPB PRN PRN Hypoglycemia Protocol Micafungin Sodium 100 mg/ 100 mls @ 100 mls/hr 09/04/24 10:20 09/12/24 08:32 Sodium Chloride IVPB 100 mls/hr DAILY RHYS Administration Levofloxacin/Dextrose 750 mg in 150 mls @ 100 mls/hr 09/05/24 09:00 09/11/24 08:59 Levaquin 750 Mg/D5w 150 Ml IVPB 100 mls/hr Q48H RHYS Administration Meropenem 1 gm in 100 mls @ 200 mls/hr 09/06/24 11:00 09/12/24 08:32 IVPB 200 mls/hr Q12HR RHYS Administration Dexmedetomidine HCl 400 mcg in 100 mls @ 11.92 mls/hr 09/06/24 14:00 09/12/24 06:00 Precedex 400 Mcg/100 Ml IV CONT 1 mcg/kg/hr .Q8H24M RHYS 14.9 mls/hr Titration Protocol 0.8 MCG/KG/HR Vancomycin HCl 1,250 mg in 250 mls @ 166.667 mls/hr 09/11/24 08:00 09/12/24 08:22 Vancomycin 1,250 Mg/Ns 250 Ml IVPB 166.67 mls/hr Q24H RHYS Administration Sodium Chloride 250 mls @ 30 mls/hr 09/12/24 02:23 09/12/24 03:01 Normal Saline Iv IV CONT 09/12/24 10:42 30 mls/hr .Q8H20M STA Administration Insulin Aspart 3 - 6 units 09/09/24 00:00 09/12/24 07:38 Insulin Aspart (*Bkc) 100 Units/Ml SUB-Q Not Given Q6HR RHYS Protocol Metoclopramide HCl 10 mg 09/01/24 08:00 09/12/24 06:36 Metoclopramide Hcl 10 Mg/10 Ml Soln Udc FEED TUBE 10 mg Q6HR RHYS Administration Metoprolol Tartrate 5 mg 09/08/24 11:07 09/11/24 04:12 Metoprolol Tartrate Inj 5 Mg/5 Ml Vial IV PUSH 5 mg Q6H PRN Administration HR>130 Metoprolol Tartrate 25 mg 09/11/24 21:00 09/12/24 08:32 Metoprolol Tartrate 25 Mg Tablet FEED TUBE 25 mg Q12HR RHYS Administration Multi-Ingred Cream/Lotion/Oil/Oint 1 applic 08/30/24 10:20 09/12/24 08:33 Mineral Oil/White Petrolatum Ointment EACH EYE 1 applic Q12HR RHYS Administration Pantoprazole Sodium 40 mg 08/30/24 10:40 09/12/24 08:31 Pantoprazole Sodium Iv 40 Mg Vial IV PUSH 40 mg Q12HR RHYS Administration Prednisolone Acetate 1 drop 08/30/24 21:00 09/12/24 08:33 Prednisolone Acetate 1% Ophth 5 Ml RIGHT EYE 1 drop Q12HR RHYS Administration Sodium Chloride 10 ml 08/30/24 12:17 Central Line Flush IV PUSH PRN PRN with TPN bag changes Sodium Chloride 20 ml 08/30/24 12:17 09/10/24 05:46 Central Line Flush IV PUSH 20 ml PRN PRN Administration after blood draws Sodium Chloride 10 ml 09/04/24 22:00 09/12/24 06:36 Central Line Flush IV PUSH 10 ml Q8HR RHYS Administration Sodium Chloride 20 ml 09/04/24 12:30 09/09/24 04:45 Central Line Flush IV PUSH 20 ml PRN PRN Administration after blood draws Radiology Results: ITS Impressions Abdomen X-Ray 08/30/24 11:02 IMPRESSION: Bilateral pneumonia. Differential include pulmonary edema. Venous Doppler Study 09/03/24 10:50 IMPRESSION: 1. Extensive deep and superficial venous thrombosis throughout the bilateral upper lungs as detailed above. Findings were discussed with Jacinto Victor, the nurse caring for the patient, at 10:59 AM. ADDENDUM: 09/03/24 1400 CORRECTION: There is a dictation error in the impression section. With the correction capitalized this should read- Extensive deep and superficial venous thrombosis throughout the bilateral upper LIMBS as detailed above. Head CT 09/09/24 15:44 IMPRESSION: Large acute bilateral occipital lobe infarcts. Multifocal bilateral cerebellar infarcts. Focal bilateral thalamic acute infarcts. Results reported telephonically to Halle Browning RN by Dr. Campos at 3:48 PM on 09/09/2024. Chest/Abdomen/Pelvis CT 09/09/24 15:56 IMPRESSION: Endotracheal tube terminates 2.5 cm above the sun. Right IJ central line terminates in the right atrium. CT findings suggestive of right lower lobe pneumonia. Additional patchy bilateral groundglass and reticular opacities may represent edema or multifocal infection, to include atypical variants. Small bilateral pleural effusions. Asymmetric chest wall edema, greater on the right. Correlate for signs of infection. Subacute pelvic and sacral fractures. Chest X-Ray 09/12/24 06:01 Impression: Right basilar pulmonary edema versus pneumonia. Left lung nearly clear. Support tubes, as above. Labs Labs: Laboratory Results - last 24 hr 08/31/24 09/07/24 09/11/24 08:39 11:01 04:17 WBC RBC Hgb Hct MCV MCH MCHC RDW Plt Count MPV Immature Gran % (Auto) Neut % (Auto) Lymph % (Auto) Tyrrell % (Auto) Eos % (Auto) Baso % (Auto) Lymph # (Auto) Tyrrell # (Auto) Eos # (Auto) Baso # (Auto) Abs Immat Gran (auto) Absolute Neuts (auto) Absolute Nucleated RBC Total Counted Neutrophils % (Manual) Band Neutrophils % Lymphocytes % (Manual) Monocytes % (Manual) Nucleated RBC % Abs Neuts (Manual) Abs Lymphs (Manual) Abs Monocytes (Manual) Hypersegmented Neuts Platelet Estimate Hypochromasia Anisocytosis Schistocytes PT INR APTT Puncture Site ABG pH ABG pCO2 ABG pO2 ABG PO2/FiO2 Ratio ABG HCO3 ABG O2 Saturation ABG O2 Content ABG Base Excess A-a Gradient Oxyhemoglobin Total Hemoglobin O2 Delivery Device O2 Liters/Min Minute Volume Vent Rate 18 Vent Mode Cmv FiO2 Tidal Volume 330 PEEP 8 Peak Inspir Pressure Pressure Support Sodium Potassium Chloride Carbon Dioxide Anion Gap BUN Creatinine Estim Creat Clear Calc Estimated GFR Glucose POC Capillary Glucose Lactic Acid Calcium Phosphorus Magnesium Total Bilirubin Direct Bilirubin GGT AST ALT Alkaline Phosphatase Total Protein Albumin Vit D 1,25-Dihyd Total 38 1,25 Dihydroxy Vit D2 <8 1,25 Dihydroxy Vit D3 38 Urine Color Urine Appearance Urine pH Ur Specific Mcgregor Urine Protein Urine Glucose (UA) Urine Ketones Ur Blood (Man) Urine Nitrate Urine Bilirubin Urine Urobilinogen Leukocyte Esterase Rfl Urine RBC Urine WBC Ur Squamous Epith Cells Urine Bacteria Urine Casts CMV DNA Quant PCR TNP Blood Type Antibody Screen Crossmatch 09/11/24 09/11/24 09/11/24 11:11 14:21 14:22 WBC 40.1 H RBC 2.55 L Hgb 7.6 L Hct 24.2 L MCV 94.9 MCH 29.8 MCHC 31.4 L RDW 20.5 H Plt Count 508 H MPV 10.9 H Immature Gran % (Auto) Neut % (Auto) Lymph % (Auto) Tyrrell % (Auto) Eos % (Auto) Baso % (Auto) Lymph # (Auto) Tyrrell # (Auto) Eos # (Auto) Baso # (Auto) Abs Immat Gran (auto) Absolute Neuts (auto) Absolute Nucleated RBC Total Counted Neutrophils % (Manual) Band Neutrophils % Lymphocytes % (Manual) Monocytes % (Manual) Nucleated RBC % Abs Neuts (Manual) Abs Lymphs (Manual) Abs Monocytes (Manual) Hypersegmented Neuts Platelet Estimate Hypochromasia Anisocytosis Schistocytes PT 17.0 H INR 1.4 APTT 40.0 H Puncture Site ABG pH ABG pCO2 ABG pO2 ABG PO2/FiO2 Ratio ABG HCO3 ABG O2 Saturation ABG O2 Content ABG Base Excess A-a Gradient Oxyhemoglobin Total Hemoglobin O2 Delivery Device O2 Liters/Min Minute Volume Vent Rate Vent Mode FiO2 Tidal Volume PEEP Peak Inspir Pressure Pressure Support Sodium 146 H Potassium 4.0 Chloride 113 H Carbon Dioxide 27 Anion Gap 6 BUN 61 H Creatinine 1.01 H Estim Creat Clear Calc 37 Estimated GFR 55 L Glucose 112 H POC Capillary Glucose 100 Lactic Acid 1.3 Calcium 8.9 Phosphorus 4.1 Magnesium 2.2 Total Bilirubin 0.6 Direct Bilirubin 0.0 GGT 62 AST 75 H ALT 43 H Alkaline Phosphatase 117 Total Protein 5.7 L Albumin 2.7 L Vit D 1,25-Dihyd Total 1,25 Dihydroxy Vit D2 1,25 Dihydroxy Vit D3 Urine Color Yellow Urine Appearance Cloudy H Urine pH 5.5 Ur Specific Mcgregor 1.012 Urine Protein 1+ H Urine Glucose (UA) Negative Urine Ketones Negative Ur Blood (Man) 2+ H Urine Nitrate Negative Urine Bilirubin Negative Urine Urobilinogen 0.2 Leukocyte Esterase Rfl Negative Urine RBC 0-2 Urine WBC 0-5 Ur Squamous Epith Cells Occasional Urine Bacteria None seen Urine Casts 3-5 CMV DNA Quant PCR Blood Type O Positive Antibody Screen Negative Crossmatch See Detail 09/11/24 09/11/24 09/12/24 18:21 20:04 00:21 WBC 41.5 H RBC 2.37 L Hgb 7.1 L Hct 22.7 L MCV 95.8 MCH 30.0 MCHC 31.3 L RDW 20.5 H Plt Count 475 H MPV 10.6 H Immature Gran % (Auto) Neut % (Auto) Lymph % (Auto) Tyrrell % (Auto) Eos % (Auto) Baso % (Auto) Lymph # (Auto) Tyrrell # (Auto) Eos # (Auto) Baso # (Auto) Abs Immat Gran (auto) Absolute Neuts (auto) Absolute Nucleated RBC Total Counted Neutrophils % (Manual) Band Neutrophils % Lymphocytes % (Manual) Monocytes % (Manual) Nucleated RBC % Abs Neuts (Manual) Abs Lymphs (Manual) Abs Monocytes (Manual) Hypersegmented Neuts Platelet Estimate Hypochromasia Anisocytosis Schistocytes PT 17.1 H INR 1.4 APTT 40.5 H Puncture Site ABG pH ABG pCO2 ABG pO2 ABG PO2/FiO2 Ratio ABG HCO3 ABG O2 Saturation ABG O2 Content ABG Base Excess A-a Gradient Oxyhemoglobin Total Hemoglobin O2 Delivery Device O2 Liters/Min Minute Volume Vent Rate Vent Mode FiO2 Tidal Volume PEEP Peak Inspir Pressure Pressure Support Sodium 147 H Potassium 3.8 Chloride 114 H Carbon Dioxide 28 Anion Gap 5 BUN 61 H Creatinine 1.13 H Estim Creat Clear Calc 33 Estimated GFR 48 L Glucose 112 H POC Capillary Glucose 106 H 111 H Lactic Acid 1.5 Calcium 8.7 Phosphorus 4.4 Magnesium 2.1 Total Bilirubin 0.6 Direct Bilirubin 0.0 GGT 56 AST 73 H ALT 41 H Alkaline Phosphatase 107 Total Protein 5.6 L Albumin 2.6 L Vit D 1,25-Dihyd Total 1,25 Dihydroxy Vit D2 1,25 Dihydroxy Vit D3 Urine Color Urine Appearance Urine pH Ur Specific Mcgregor Urine Protein Urine Glucose (UA) Urine Ketones Ur Blood (Man) Urine Nitrate Urine Bilirubin Urine Urobilinogen Leukocyte Esterase Rfl Urine RBC Urine WBC Ur Squamous Epith Cells Urine Bacteria Urine Casts CMV DNA Quant PCR Blood Type Antibody Screen Crossmatch 09/12/24 09/12/24 09/12/24 02:04 04:56 06:31 WBC 39.6 H 34.9 H RBC 2.22 L 2.75 L Hgb 6.5 L* 8.0 L Hct 21.3 L 25.5 L MCV 95.9 92.7 MCH 29.3 29.1 MCHC 30.5 L 31.4 L RDW 20.5 H 19.5 H Plt Count 484 H 422 H MPV 11.1 H 11.2 H Immature Gran % (Auto) Not Reportable Neut % (Auto) Not Reportable Lymph % (Auto) Not Reportable Tyrrell % (Auto) Not Reportable Eos % (Auto) Not Reportable Baso % (Auto) Not Reportable Lymph # (Auto) Not Reportable Tyrrell # (Auto) Not Reportable Eos # (Auto) Not Reportable Baso # (Auto) Not Reportable Abs Immat Gran (auto) Not Reportable Absolute Neuts (auto) Not Reportable Absolute Nucleated RBC Not Reportable Total Counted 100 Neutrophils % (Manual) 75 H Band Neutrophils % 6 Lymphocytes % (Manual) 13 L Monocytes % (Manual) 6 Nucleated RBC % Not Reportable Abs Neuts (Manual) 28.26 H Abs Lymphs (Manual) 4.53 H Abs Monocytes (Manual) 2.09 H Hypersegmented Neuts Present Platelet Estimate Increased Hypochromasia 1+ Anisocytosis 2+ Schistocytes None seen PT 17.6 H INR 1.4 APTT 43.1 H Puncture Site Right radial ABG pH 7.528 H* ABG pCO2 30.9 L ABG pO2 104.0 H ABG PO2/FiO2 Ratio 3.47 ABG HCO3 25.1 ABG O2 Saturation 98.3 ABG O2 Content 13.3 L ABG Base Excess 2.7 A-a Gradient 73.6 Oxyhemoglobin 97.3 Total Hemoglobin 9.6 L O2 Delivery Device Ventilator O2 Liters/Min Not Reportable Minute Volume Not Reportable Vent Rate 18 Vent Mode Cmv FiO2 30 Tidal Volume 300 PEEP 8 Peak Inspir Pressure Not Reportable Pressure Support Not Reportable Sodium 149 H 148 H Potassium 3.8 3.4 Chloride 116 H 115 H Carbon Dioxide 26 28 Anion Gap 7 5 BUN 61 H 60 H Creatinine 1.15 H 1.04 H Estim Creat Clear Calc 32 36 Estimated GFR 47 L 53 L Glucose 115 H 108 POC Capillary Glucose Lactic Acid 1.4 Calcium 8.5 8.5 Phosphorus 4.6 H 4.7 H Magnesium 2.0 2.0 Total Bilirubin 0.4 0.4 Direct Bilirubin 0.0 GGT AST 62 H 61 H ALT 38 H 36 H Alkaline Phosphatase 105 103 Total Protein 5.6 L 5.6 L Albumin 2.5 L 2.5 L Vit D 1,25-Dihyd Total 1,25 Dihydroxy Vit D2 1,25 Dihydroxy Vit D3 Urine Color Urine Appearance Urine pH Ur Specific Mcgregor Urine Protein Urine Glucose (UA) Urine Ketones Ur Blood (Man) Urine Nitrate Urine Bilirubin Urine Urobilinogen Leukocyte Esterase Rfl Urine RBC Urine WBC Ur Squamous Epith Cells Urine Bacteria Urine Casts CMV DNA Quant PCR Blood Type Antibody Screen Crossmatch 09/12/24 08:16 WBC 38.3 H RBC 2.87 L Hgb 8.3 L Hct 26.4 L MCV 92.0 MCH 28.9 MCHC 31.4 L RDW 19.6 H Plt Count 478 H MPV 11.6 H Immature Gran % (Auto) Neut % (Auto) Lymph % (Auto) Tyrrell % (Auto) Eos % (Auto) Baso % (Auto) Lymph # (Auto) Tyrrell # (Auto) Eos # (Auto) Baso # (Auto) Abs Immat Gran (auto) Absolute Neuts (auto) Absolute Nucleated RBC Total Counted Neutrophils % (Manual) Band Neutrophils % Lymphocytes % (Manual) Monocytes % (Manual) Nucleated RBC % Abs Neuts (Manual) Abs Lymphs (Manual) Abs Monocytes (Manual) Hypersegmented Neuts Platelet Estimate Hypochromasia Anisocytosis Schistocytes PT 17.4 H INR 1.4 APTT 46.6 H Puncture Site ABG pH ABG pCO2 ABG pO2 ABG PO2/FiO2 Ratio ABG HCO3 ABG O2 Saturation ABG O2 Content ABG Base Excess A-a Gradient Oxyhemoglobin Total Hemoglobin O2 Delivery Device O2 Liters/Min Minute Volume Vent Rate Vent Mode FiO2 Tidal Volume PEEP Peak Inspir Pressure Pressure Support Sodium 150 H Potassium 3.2 L Chloride 115 H Carbon Dioxide 26 Anion Gap 9 BUN 60 H Creatinine 1.13 H Estim Creat Clear Calc 33 Estimated GFR 48 L Glucose 114 H POC Capillary Glucose Lactic Acid 1.3 Calcium 8.8 Phosphorus 4.4 Magnesium 2.1 Total Bilirubin 0.4 Direct Bilirubin 0.0 GGT AST 66 H ALT 37 H Alkaline Phosphatase 111 Total Protein 5.6 L Albumin 2.6 L Vit D 1,25-Dihyd Total 1,25 Dihydroxy Vit D2 1,25 Dihydroxy Vit D3 Urine Color Urine Appearance Urine pH Ur Specific Mcgregor Urine Protein Urine Glucose (UA) Urine Ketones Ur Blood (Man) Urine Nitrate Urine Bilirubin Urine Urobilinogen Leukocyte Esterase Rfl Urine RBC Urine WBC Ur Squamous Epith Cells Urine Bacteria Urine Casts CMV DNA Quant PCR Blood Type Antibody Screen Crossmatch Quality VTE Prophylaxis VTE prophylaxis: pharmacologic ordered
--- NOTE | 2024-09-12 10:17 | PC.NURSE ---
Central line draw for MTS Renal Crossmatching. ([id number] vacutainers handed to RODRI Patrick with MTS team @ [phone])
--- NOTE | 2024-09-12 10:30 | PCFNICU ---
ICU Rounding Note: Pt current nutrition is Vital 1.2 @ 20 ml/h with flushes 30 ml q 4 h. Not able to advance because of intolerance. Nutrition recommendation: Continue with current orders. Pt to be extubated tomorrow for comfort measures Last recorded weight is 55.9 kg. Bowel Motility: +1 liquid output per FMS 09/12 Labs Reviewed: Hgb 8.3, Hct 26.4, Alb 2.6, Na 150, K+ 3.2, BUN 60, Cre 1.13, Glu 111 Meds Noted: Precedex, Bumex, Reglan Skin: Stage 3 coccyx Additional Notes: Plan for extubation tomorrow for comfort care. Continue with same orders. Following daily in ICU rounds. Monitoring tube feeding orders, weights, labs, tolerance, plan of care, vent settings, vitals Follow up Tuesday/Tuesday. Daily rounds.
[2024-09-12] MEDS: dexmedeTOMIDine 400 MCG/100 ML 400 MCG/100 ML BAG 14.9 MCG IV CONT ×2 (11:38→18:10)
[2024-09-12 14:30] LABS: Hematocrit 24.1 % (37.0-47.0); Hemoglobin 7.6 g/dL (12.0-15.0); Mean Corpuscular HGB Conc 31.5 g/dl (32-36); Mean Corpuscular Hemoglobin 28.8 pg (26-34); Mean Corpuscular Volume 91.3 fl (80-100); Platelet Count Result 443 k/mm3 (150-375); Red Blood Count 2.64 M/mm3 (4.2-5.4); White Blood Count 36.1 K/mm3 (4.5-10.0)
[2024-09-12 14:43] LABS: Alanine Aminotransferase 33 U/L (6-35); Albumin Level 2.5 g/dL (3.5-5.1); Alkaline Phosphatase 110 U/L (38-126); Anion Gap 7 mmol/L (4-12); Aspartate Amino Transferase 59 U/L (14-36); Bilirubin,Total 0.3 mg/dL (0.2-1.3); Blood Urea Nitrogen 58 mg/dL (7-17); Calcium 8.5 mg/dL (8.4-10.2); Carbon Dioxide 27 mmol/L (22-30); Chloride 117 mmol/L (98-107); Estimated CRCL calculation 33 ml/min; Estimated Glomerular Filt Rate 49; Glucose 127 mg/dL (65-110); INR 1.4; Magnesium 1.9 mg/dL (1.6-2.3); Potassium 3.0 mmol/L (3.4-5.0); Prothrombin Time 17.5 Seconds (11.1-14.7); Sodium 151 mmol/L (137-145); Total Protein 5.4 g/dL (6.3-8.2)
[2024-09-12 14:44] LABS: Partial Thromboplastin Time 49.6 Seconds (22.3-36.8)
[2024-09-12] MEDS: POTASSIUM CHLORIDE 20 MEQ PACKET (FOR LIQUID) 40 MEQ FEED TUBE (16:36)
[2024-09-12] MEDS: KCL 40 MEQ/WATER 100 ML 100 ML 25 ML IVPB (16:37)
[2024-09-12 18:13] LABS: GGT 51 U/L (3-65)
[2024-09-12 23:52] LABS: Mean Corpuscular HGB Conc 31.3 g/dl (32-36); Mean Corpuscular Hemoglobin 29.0 pg (26-34); Mean Corpuscular Volume 92.5 fl (80-100); Platelet Count Result 379 k/mm3 (150-375); Red Blood Count 2.14 M/mm3 (4.2-5.4); White Blood Count 30.6 K/mm3 (4.5-10.0)
[2024-09-12 23:54] LABS: Parathyroid HormoneRelated Pr. 10 pg/mL (11-20)
[2024-09-13] VITALS (28 sets, daily range): BP systolic 98–161; BP diastolic 53–100; PULSE 91–153; RESP 19–34; TEMP 36.9–37.5; O2SAT 95–100
[2024-09-13 00:02] LABS: Hematocrit 19.8 % (37.0-47.0); Hemoglobin 6.2 g/dL (12.0-15.0)
[2024-09-13 00:03] LABS: INR 1.3; Prothrombin Time 15.8 Seconds (11.1-14.7)
[2024-09-13 00:04] LABS: Partial Thromboplastin Time 44.0 Seconds (22.3-36.8)
[2024-09-13 00:40] LABS: Anion Gap 6 mmol/L (4-12); Blood Urea Nitrogen 53 mg/dL (7-17); Calcium 8.4 mg/dL (8.4-10.2); Carbon Dioxide 25 mmol/L (22-30); Chloride 119 mmol/L (98-107); Estimated CRCL calculation 37 ml/min; Estimated Glomerular Filt Rate 55; Glucose 115 mg/dL (65-110); Magnesium 1.9 mg/dL (1.6-2.3); Potassium 3.7 mmol/L (3.4-5.0); Sodium 150 mmol/L (137-145)
[2024-09-13] MEDS: SODIUM CHLORIDE 0.9% IV 250 ML 30 ML IV CONT (01:10)
[2024-09-13] MEDS: dexmedeTOMIDine 400 MCG/100 ML 400 MCG/100 ML BAG 14.9 MCG IV CONT ×2 (01:21→06:49)
[2024-09-13 03:40] LABS: Immunochemical Fecal Occult Bl Negative (N)
[2024-09-13 03:41] LABS: IFOB Positive Control Positive
[2024-09-13 05:15] LABS: Alveolar/Arterial O2 Gradient 56.8 mmHg; Fractional Inspired Oxygen 30 %; HCO3 ABG 24.1 mEq/l (22.0-26.0); Oxygen Content ABG 14.4 %vol (16.0-22.0); Oxygen Saturation ABG 98.6 % (95.0-100.0); PCO2 ABG 32.7 mmHg (35.0-45.0); PO2 ABG 118.7 mmHg (80.0-100.0); PO2 FiO2 Ratio Arterial Blood 3.96 %
[2024-09-13 05:16] LABS: Site Drawn RIGHT RADIAL
[2024-09-13 05:17] LABS: Arterial Blood Gas Tidal Volume 300 ml; Arterial Blood Gas Ventilator rate 18 /MIN
[2024-09-13] MEDS: METOCLOPRAMIDE HCL 10 MG/10 ML SOLN UDC FEED TUBE (05:51)
[2024-09-13] MEDS: CENTRAL LINE FLUSH 10 ML IV PUSH ×3 (06:02→20:18)
[2024-09-13 06:12] LABS: Hematocrit 32.5 % (37.0-47.0); Hemoglobin 10.4 g/dL (12.0-15.0); Mean Corpuscular HGB Conc 32.0 g/dl (32-36); Mean Corpuscular Hemoglobin 28.7 pg (26-34); Mean Corpuscular Volume 89.5 fl (80-100); Platelet Count Result 373 k/mm3 (150-375); Red Blood Count 3.63 M/mm3 (4.2-5.4); White Blood Count 27.4 K/mm3 (4.5-10.0)
[2024-09-13 06:21] LABS: Alanine Aminotransferase 29 U/L (6-35); Albumin Level 2.8 g/dL (3.5-5.1); Alkaline Phosphatase 90 U/L (38-126); Anion Gap 7 mmol/L (4-12); Aspartate Amino Transferase 55 U/L (14-36); Bilirubin,Total 0.5 mg/dL (0.2-1.3); Blood Urea Nitrogen 51 mg/dL (7-17); Calcium 8.4 mg/dL (8.4-10.2); Carbon Dioxide 25 mmol/L (22-30); Chloride 119 mmol/L (98-107); Estimated CRCL calculation 41 ml/min; Estimated Glomerular Filt Rate > 60; Glucose 108 mg/dL (65-110); Magnesium 1.9 mg/dL (1.6-2.3); Potassium 3.4 mmol/L (3.4-5.0); Sodium 151 mmol/L (137-145); Total Protein 5.7 g/dL (6.3-8.2)
[2024-09-13 06:22] LABS: Alanine Aminotransferase 28 U/L (6-35); Albumin Level 2.8 g/dL (3.5-5.1); Alkaline Phosphatase 94 U/L (38-126); Anion Gap 8 mmol/L (4-12); Aspartate Amino Transferase 53 U/L (14-36); Bilirubin,Total 0.5 mg/dL (0.2-1.3); Blood Urea Nitrogen 52 mg/dL (7-17); Calcium 8.5 mg/dL (8.4-10.2); Carbon Dioxide 25 mmol/L (22-30); Chloride 119 mmol/L (98-107); Estimated CRCL calculation 38 ml/min; Estimated Glomerular Filt Rate 58; Glucose 107 mg/dL (65-110); Magnesium 1.9 mg/dL (1.6-2.3); Potassium 3.4 mmol/L (3.4-5.0); Sodium 152 mmol/L (137-145); Total Protein 5.6 g/dL (6.3-8.2)
[2024-09-13 06:31] LABS: INR 1.2; Prothrombin Time 15.2 Seconds (11.1-14.7)
[2024-09-13 06:32] LABS: Partial Thromboplastin Time 42.4 Seconds (22.3-36.8)
[2024-09-13 06:43] LABS: GGT 42 U/L (3-65)
[2024-09-13 06:43] LABS: GGT 31 U/L (3-65)
[2024-09-13 06:45] LABS: Band Neutrophils Percent 4 % (0-6); Lymphocytes Absolute Manual 3.28 K/mm3 (1.1-4.5); Lymphocytes Percent Manual 12 % (18-44); Monocytes Absolute Manual 1.91 K/mm3 (0.1-0.90); Monocytes Percent Manual 7 % (3-9); Neutrophils Absolute Manual 21.92 K/mm3 (1.3-6.7); Neutrophils Percent Manual 76 % (46-73); Total Cells Counted 100
[2024-09-13 06:46] LABS: Anisocytosis 1+; Basophils Absolute Manual 0.27 K/mm3 (0.0-0.1); Basophils Percent Manual 1 % (0-1); Eosinophils Absolute Manual 0.00 K/mm3 (0.02-0.50); Eosinophils Percent Manual 0 % (0-4); Hypersegmented Neutrophils Present; Schistocytes None Seen
--- NOTE | 2024-09-13 07:42 | WPDINTPN ---
Progress Note: A&P Assessment and Plan (1) Encephalopathy: Code(s): G93.40 - Encephalopathy, unspecified Status: Acute Assessment and Plan: Patient has been off sedation for more than 72 hours, remains on Precedex infusion. Patient has not been waking up. -09/09/2024: CT scan of the brain: Large acute bilateral occipital lobe infarcts. Multifocal bilateral cerebellar infarcts. Focal bilateral thalamic acute infarcts. -patient evaluated by Neurology -patient remains on therapeutic Lovenox for bilateral upper extremity DVTs -Neurology discussed with family -improvement in exam as above -she is currently on Precedex and I will wean it down to see if there is any improvement further (2) Acute respiratory failure: Code(s): J96.00 - Acute respiratory failure, unspecified whether with hypoxia or hypercapnia Status: Acute Assessment and Plan: Acute respiratory failure and sepsis secondary to bilateral Pseudomonas pneumonia in an immunocompromised patient who was on methotrexate and hydroxychloroquine. -ARDS physiology -08/30: Intubated for tachypnea, tachycardia, respiratory distress 08/31: bronchoscopy which did not show any LR hemorrhage or tracheobronchitis 08/31: BAL culture is growing Pseudomonas which is pansensitive. Also Milagros glabrata -08/29: Blood culture negative -08/20: sputum culture negative -09/04: Repeat blood cultures are negative PCR for influenza RSV and COVID was negative Urine Legionella negative and pneumococcal antigen negative Negative Mycoplasma IgM Patient on low-dose hydrocortisone as patient has been on chronic steroid use at home -09/04: Patient placed in prone position due to increased oxygen requirements secondary to ARDS and Pseudomonas pneumonia. Patient was also paralyzed with rocuronium and started on Nimbex infusion for ventilator synchrony 09/05: prone position, ABGs reviewed, ventilator adjusted. Patient will be placed in supine position, off Nimbex infusion 09/06: Patient was placed in supine position yesterday and remains in supine position this morning. Currently on 45% FiO2 and peep of 12 with good O2 sats. I have asked the bedside RN to start weaning sedation, start Precedex infusion if needed 09/06: . Given that patient's WBC count is elevated will switch cefepime to meropenem (09/06). Elevated WBC count could also be related to steroids 09/07: Continue meropenem and Levaquin, WBC count trending down, continue to monitor. Chest x-ray also improving 09/08: WBC count remains elevated, add vancomycin. Weaned PEEP to 8 and FiO2 to 35% 09/09: Place patient on pressure support ventilation /, tolerated for about 4 hours after which she got tachypneic tachycardic was switched to CMV mode of ventilation. 09/10: Continue meropenem, and, micafungin 09/13 DC vancomycin and Levaquin 08/29 CT Chest Dense bilateral multifocal infiltrates, predominantly perihilar, as detailed above. No additional source is detected for patient's profound sepsis (3) Gastroesophageal reflux disease: Qualifiers: Esophagitis presence: esophagitis presence not specified Qualified Code(s): K21.9 - Gastro-esophageal reflux disease without esophagitis Code(s): K21.9 - Gastro-esophageal reflux disease without esophagitis Status: Acute Assessment and Plan: PPI q.12 hours (4) FRANK (acute kidney injury): Code(s): N17.9 - Acute kidney failure, unspecified Status: Acute Assessment and Plan: Patient presented with elevated creatinine which was likely secondary to sepsis. Creatinine improved with IV fluids Cut down on further IV fluids and patient was given IV fluids Urine output improved. Creatinine in normal range maintain map above 65 mmHg Monitor urine output electrolytes and creatinine Patient has received Lasix, Bumex, Diuril Ob[place] catheter for accurate I&Os Increased BUN and hypercalcemia -discussed with Nephrology, continue diuresis -09/07: hypercalcemia: Received calcitonin and pamidronate along with diuretic. Effect of pamidronate takes place within 72 hours, Calcium levels improved and normalized continue to monitor Hold Bumex Will give D5 water and increase water flush for elevated sodium and chloride (5) Sepsis: Qualifiers: Sepsis acute organ dysfunction status: with acute organ dysfunction Sepsis type: sepsis due to unspecified organism Severe sepsis acute organ dysfunction type: encephalopathy Severe sepsis shock status: without septic shock Qualified Code(s): A41.9 - Sepsis, unspecified organism; R65.20 - Severe sepsis without septic shock; G93.41 - Metabolic encephalopathy Code(s): A41.9 - Sepsis, unspecified organism Status: Acute Assessment and Plan: See above (6) Immunosuppressed status: Code(s): D89.9 - Disorder involving the immune mechanism, unspecified Status: Acute Assessment and Plan: Patient was on steroids and immunosuppressants at home (7) Rheumatoid arthritis: Code(s): M06.9 - Rheumatoid arthritis, unspecified Status: Acute Assessment and Plan: Hold methotrexate and hydroxychloroquine (8) Pneumonia: Qualifiers: Laterality: bilateral Lung location: unspecified part of lung Pneumonia type: due to unspecified organism Qualified Code(s): J18.9 - Pneumonia, unspecified organism Code(s): J18.9 - Pneumonia, unspecified organism Status: Acute Assessment and Plan: See above (9) Urinary tract infection: Qualifiers: Hematuria presence: with hematuria Urinary tract infection type: site unspecified Qualified Code(s): N39.0 - Urinary tract infection, site not specified; R31.9 - Hematuria, unspecified Code(s): N39.0 - Urinary tract infection, site not specified Status: Acute Assessment and Plan: UA suggestive of UTI 08/29: Urine cultures - negative (10) Herpes labialis: Code(s): B00.1 - Herpesviral vesicular dermatitis Status: Acute Assessment and Plan: Received acyclovir through tube earlier in the code (11) Ileus: Code(s): K56.7 - Ileus, unspecified Status: Acute Assessment and Plan: Bowel sounds absent. Tube feeds on hold. Continue Reglan Continue tube feeds at 20 mL/hour (12) Peripheral ischemia: Code(s): I99.8 - Other disorder of circulatory system Status: Acute Assessment and Plan: Patient has developed discoloration/gangrene of all 10 fingers. likely systemic presentation suggest against vascular clot but more like DIC or septic emboli from pseudomonal infection Radial pulses are dopplerable Blood pressure are on the higher side Monitor maintain mean arterial pressure above 65 mmHg Discoloration on her fingers have improved but areas of necrosis remain. She also has blistering noted on some of the fingers likely from edema, continue to monitor (13) Swelling of both upper extremities: Code(s): M79.89 - Other specified soft tissue disorders Status: Acute Assessment and Plan: Likely secondary to edema as it is bilateral 09/03: Bilateral upper extremity venous Doppler showed extensive deep and superficial venous thrombosis throughout the bilateral upper extremities She is currently on therapeutic Lovenox IV q.12 hours (14) Anemia: Qualifiers: Anemia type: unspecified type Qualified Code(s): D64.9 - Anemia, unspecified Code(s): D64.9 - Anemia, unspecified Status: Acute Assessment and Plan: 09/08: Hemoglobin 7.0, will transfuse 1 unit of packed RBC Hemoglobin remains stable, continue to monitor, transfuse if hemoglobin < 7.0 09/02: Patient also received 1 unit of packed RBCs for hemoglobin of 6.9 09/12 patient was given 1 unit of PRBC last night 09/13 patient again Doppler hemoglobin. As per nursing staff the residual was dark. I will hold Lovenox. I will discuss with the family depending on goals of care will consult GI. Continue PPI q.12 hours. (15) Electrolyte imbalance: Code(s): E87.8 - Other disorders of electrolyte and fluid balance, not elsewhere classified Status: Acute Assessment and Plan: Will give potassium replacement D5 water (16) Tachycardia: Code(s): R00.0 - Tachycardia, unspecified Status: Acute Assessment and Plan: Significantly improved with Precedex infusion. Continue Metoprolol per tube and p.r.n. IV metoprolol Plan DVT prophylaxis -SCD. Hold 11 Stress ulcer prophylaxis -Protonix IV q.12 hours Nutrition -tube feeds will be continued at current rate continue Reglan, Code Status -Patient is DNR with plan palliative extubation and comfort care leading to DCD today at 11:00 a.m.. Due to overnight changes in mental status family had decided to delay and revisit the decision. I met with patient's son [id number] and ex- again in conference room today and we had a long meeting. We went over patient's current status and improvement in her mental status. We again discussed goals of care and option of either proceeding with trach/peg and continued ventilator support and further evaluation for anemia or continue to proceed with palliative extubation and comfort care as patient it would not want a prolonged ventilation and poor quality of life as per their assessment of her wishes. As they are going to discuss among themselves before making final decision. I have answered their questions. Total Critical Care Time - 45 minutes Due to a high probability of clinically significant, life threatening deterioration, the patient required my highest level of preparedness to intervene emergently and I personally spent this critical care time directly and personally managing the patient. This critical care time included obtaining a history; examining the patient; pulse oximetry; ordering and review of studies; arranging urgent treatment with development of a management plan; evaluation of patient's response to treatment; frequent reassessment; and discussions with other providers. It was exclusive of separately billable procedures and treating other patients and teaching time. Please see Assessment and Plan section and the rest of the note for further information on patient assessment and treatment Subjective Date/time seen: 09/13/24 Overnight events reviewed. She woke up and started following commands and responding to questions. She remains afebrile overnight. She has acceptable urine output without diuretics. Tube feeds at 20. Precedex is at 1. She had dark residuals from her gastric tube. She dropped her hemoglobin overnight and had to be given 2 units of PRBC per Unable to obtain review of systems. Review of Systems Review of Systems: ROS unobtainable: Yes unobtainable due to endotracheal tube, unobtainable due to medical condition and unobtainable due to mental status Exam Narrative: General: Pt is now sedated, intubated, HEENT: Pupils equal and reactive, sclera is clear, ETT in place, tongue is swollen Lungs/Chest: Coarse breath sounds bilaterally, decreased at bases, no wheezing, tachypnea Cardiac: Tachycardia RRR. Normal S1 S2. No murmurs Circulation: Bilateral radial pulses dopplerable and bilateral pedal pulses are palpable, Abdomen: Mildly tender to palpation diffuse, abscess bowel sounds. Soft. Extremities: edema of bilateral upper extremities with gauze wrapped around them due to weeping, blisters on multiple fingers : Obregon in place Neurologic: Intubated, Precedex infusion, she opens her eyes on calling her name and response to questions. She followed commands with left foot by moving toes. She did not follow commands with hands. She was not able to move her hands.PERRL Skin: Bilateral upper extremity skin breakdown and weeping along with edema She also has several scabbed wounds on her both legs which are in various healing stage but no open or infected wound. All 10 fingers discoloration is improving, blisters on some of the fingers. Tips of the fingers are cold and gangrene. Swelling of the hands noted. No discoloration noted on the toes bilaterally, Objective Data Vital Signs Vital Signs: Vital Signs - 24 hr 09/12/24 08:00 09/12/24 08:00 09/12/24 08:00 Temperature 37.9 C H Pulse Rate 110 H 110 H Respiratory Rate 26 H Blood Pressure 133/77 Pulse Oximetry 100 100 100 Oxygen Delivery Mechanical Ventilation Mechanical Ventilation Fraction of Inspired Oxygen 30 30 09/12/24 08:00 09/12/24 08:00 09/12/24 08:00 Temperature Pulse Rate 109 H 108 H Respiratory Rate 28 H Blood Pressure Pulse Oximetry Oxygen Delivery Fraction of Inspired Oxygen 30 09/12/24 08:32 09/12/24 10:00 09/12/24 10:00 Temperature 37.7 C H Pulse Rate 113 H 105 H 107 H Respiratory Rate 31 H Blood Pressure 120/71 Pulse Oximetry 100 Oxygen Delivery Fraction of Inspired Oxygen 09/12/24 10:00 09/12/24 11:05 09/12/24 11:38 Temperature Pulse Rate 99 111 H 106 H Respiratory Rate 29 H 27 H Blood Pressure Pulse Oximetry 100 Oxygen Delivery Mechanical Ventilation Fraction of Inspired Oxygen 30 09/12/24 11:38 09/12/24 12:00 09/12/24 12:00 Temperature 37.6 C Pulse Rate 106 H 107 H Respiratory Rate 27 H 24 H Blood Pressure 113/67 Pulse Oximetry 100 Oxygen Delivery Fraction of Inspired Oxygen 30 09/12/24 12:00 09/12/24 12:00 09/12/24 12:00 Temperature Pulse Rate 105 H 109 H Respiratory Rate 28 H Blood Pressure Pulse Oximetry 100 Oxygen Delivery Mechanical Ventilation Fraction of Inspired Oxygen 30 09/12/24 14:00 09/12/24 14:00 09/12/24 14:00 Temperature Pulse Rate 101 H 104 H 102 H Respiratory Rate 30 H 34 H Blood Pressure 115/67 Pulse Oximetry 100 Oxygen Delivery Fraction of Inspired Oxygen 09/12/24 14:10 09/12/24 16:00 09/12/24 16:00 Temperature 37.3 C Pulse Rate 105 H 99 Respiratory Rate 23 H Blood Pressure 117/81 Pulse Oximetry 100 100 100 Oxygen Delivery Mechanical Ventilation Mechanical Ventilation Fraction of Inspired Oxygen 30 30 09/12/24 16:00 09/12/24 16:00 09/12/24 16:00 Temperature Pulse Rate 104 H 107 H Respiratory Rate 20 Blood Pressure Pulse Oximetry Oxygen Delivery Fraction of Inspired Oxygen 30 09/12/24 17:10 09/12/24 18:00 09/12/24 18:00 Temperature 37.5 C Pulse Rate 103 H 104 H 103 H Respiratory Rate 24 H Blood Pressure 95/63 L Pulse Oximetry 100 100 Oxygen Delivery Mechanical Ventilation Fraction of Inspired Oxygen 30 09/12/24 18:06 09/12/24 18:10 09/12/24 18:10 Temperature Pulse Rate 103 H 103 H 104 H Respiratory Rate 24 H 24 H 22 H Blood Pressure 95/62 L Pulse Oximetry 100 Oxygen Delivery Mechanical Ventilation Fraction of Inspired Oxygen 09/12/24 20:00 09/12/24 20:00 09/12/24 20:00 Temperature 37.1 C Pulse Rate 107 H Respiratory Rate 26 H Blood Pressure 90/62 L Pulse Oximetry 100 100 Oxygen Delivery Mechanical Ventilation Fraction of Inspired Oxygen 30 30 09/12/24 20:00 09/12/24 20:00 09/12/24 20:00 Temperature Pulse Rate 107 H 108 H 107 H Respiratory Rate 24 H 26 H Blood Pressure 90/62 L Pulse Oximetry 100 Oxygen Delivery Fraction of Inspired Oxygen 09/12/24 20:02 09/12/24 20:15 09/12/24 20:19 Temperature Pulse Rate 107 H 109 H 108 H Respiratory Rate 23 H Blood Pressure 87/62 L Pulse Oximetry 100 100 Oxygen Delivery Mechanical Ventilation Fraction of Inspired Oxygen 30 09/12/24 20:32 09/12/24 20:45 09/12/24 21:00 Temperature Pulse Rate 104 H 104 H 101 H Respiratory Rate 24 H 21 H 25 H Blood Pressure 80/54 L 88/62 L 97/64 L Pulse Oximetry 100 100 100 Oxygen Delivery Fraction of Inspired Oxygen 09/12/24 21:15 09/12/24 21:30 09/12/24 22:00 Temperature Pulse Rate 104 H 101 H 96 Respiratory Rate 21 H 20 Blood Pressure 91/57 L 82/52 L Pulse Oximetry 100 100 Oxygen Delivery Fraction of Inspired Oxygen 09/12/24 22:00 09/12/24 22:00 09/12/24 23:00 Temperature Pulse Rate 96 96 96 Respiratory Rate 24 H 24 H Blood Pressure 101/58 L Pulse Oximetry 100 100 Oxygen Delivery Mechanical Ventilation Fraction of Inspired Oxygen 30 09/13/24 00:00 09/13/24 00:00 09/13/24 00:00 Temperature Pulse Rate 96 Respiratory Rate 25 H Blood Pressure Pulse Oximetry 100 Oxygen Delivery Mechanical Ventilation Fraction of Inspired Oxygen 30 30 09/13/24 00:00 09/13/24 00:00 09/13/24 01:06 Temperature 37.5 C 37.3 C Pulse Rate 96 96 98 Respiratory Rate 26 H 29 H Blood Pressure 98/53 L 109/56 L Pulse Oximetry 100 100 Oxygen Delivery Fraction of Inspired Oxygen 09/13/24 01:21 09/13/24 01:21 09/13/24 01:25 Temperature 37.4 C Pulse Rate 92 92 93 Respiratory Rate 22 H 22 H 22 H Blood Pressure 105/57 L Pulse Oximetry 100 Oxygen Delivery Fraction of Inspired Oxygen 09/13/24 01:25 09/13/24 02:00 09/13/24 02:00 Temperature 37.4 C Pulse Rate 93 95 95 Respiratory Rate 22 H Blood Pressure 105/57 L Pulse Oximetry 100 100 Oxygen Delivery Mechanical Ventilation Fraction of Inspired Oxygen 30 09/13/24 02:00 09/13/24 02:00 09/13/24 02:25 Temperature 37.4 C Pulse Rate 95 95 94 Respiratory Rate 24 H 24 H 27 H Blood Pressure 111/58 L 116/61 Pulse Oximetry 100 100 Oxygen Delivery Fraction of Inspired Oxygen 09/13/24 03:25 09/13/24 03:38 09/13/24 03:55 Temperature 37.5 C 37.5 C 37.2 C Pulse Rate 91 95 95 Respiratory Rate 23 H 22 H 23 H Blood Pressure 126/77 126/77 124/70 Pulse Oximetry 100 100 100 Oxygen Delivery Fraction of Inspired Oxygen 09/13/24 04:00 09/13/24 04:00 09/13/24 04:00 Temperature Pulse Rate 102 H Respiratory Rate Blood Pressure Pulse Oximetry 100 Oxygen Delivery Mechanical Ventilation Fraction of Inspired Oxygen 30 30 09/13/24 04:00 09/13/24 04:00 09/13/24 04:55 Temperature 37.2 C 36.9 C Pulse Rate 102 H 102 H 94 Respiratory Rate 20 20 19 Blood Pressure 124/70 125/76 Pulse Oximetry 100 100 Oxygen Delivery Fraction of Inspired Oxygen 09/13/24 05:18 09/13/24 05:55 09/13/24 06:00 Temperature 37.2 C Pulse Rate 92 93 92 Respiratory Rate 25 H Blood Pressure 135/76 Pulse Oximetry 100 100 Oxygen Delivery Mechanical Ventilation Fraction of Inspired Oxygen 30 09/13/24 06:00 09/13/24 06:05 09/13/24 06:49 Temperature Pulse Rate 92 92 97 Respiratory Rate 24 H 24 H 22 H Blood Pressure 135/76 Pulse Oximetry 100 Oxygen Delivery Fraction of Inspired Oxygen 09/13/24 06:49 Temperature Pulse Rate 97 Respiratory Rate 22 H Blood Pressure Pulse Oximetry Oxygen Delivery Fraction of Inspired Oxygen Intake/Output Intake/Output: Intake & Output 09/10/24 09/11/24 09/12/24 09/13/24 23:59 23:59 23:59 23:59 Intake Total 3859.5 1142.1 2017.0 2120.3 Output Total 3050 2600 870 600 Balance 809.5 -1457.9 1147.0 1520.3 Meds/Results Medications: Active Medications Generic Name Dose Route Start Last Admin Trade Name Freq PRN Reason Stop Dose Admin Acetaminophen 650 mg 08/29/24 18:17 09/11/24 08:57 Acetaminophen 325 Mg Tablet PO 650 mg Q4H PRN Administration Mild Pain (1-3) or Fever Acetaminophen 650 mg 08/30/24 00:43 08/30/24 06:56 Acetaminophen 650 Mg Suppository RECTAL 650 mg Q6H PRN Administration Mild Pain (1-3) or Fever Dextrose 12.5 gm 08/29/24 20:42 08/31/24 20:55 Dextrose 50% 25 Gm/50 Ml Syringe IV PUSH 12.5 gm PRN PRN Administration Hypoglycemia Protocol Enoxaparin Sodium 60 mg 09/03/24 11:35 09/12/24 23:37 Enoxaparin 60 Mg/0.6 Ml Syringe SUB-Q 60 mg Q12H RHYS Administration Glucagon 1 mg 08/29/24 20:42 Glucagon For Inj 1 Mg Vial IM PRN PRN Hypoglycemia Protocol Glucose 15 gm 08/29/24 20:42 Glucose Oral Gel 15 Gm Of Glucse In 37.5 Gm Tube PO PRN PRN Hypoglycemia Protocol Hydralazine HCl 10 mg 09/08/24 15:05 09/09/24 00:43 Hydralazine Hcl 20 Mg/Ml Vial IV PUSH 10 mg Q4HR PRN Administration Blood Pressure - High Hydrocortisone Sodium Succinate 20 mg 09/03/24 09:00 09/12/24 08:31 Hydrocortisone Sodium Succinate 100 Mg/2 Ml Vial IV PUSH 20 mg QAM RHYS Administration Dextrose 1,000 mls @ 100 mls/hr 08/29/24 20:42 Dextrose 5% 1,000 Ml IVPB PRN PRN Hypoglycemia Protocol Micafungin Sodium 100 mg/ 100 mls @ 100 mls/hr 09/04/24 10:20 09/12/24 18:31 Sodium Chloride IVPB Infused DAILY RHYS Infusion Meropenem 1 gm in 100 mls @ 200 mls/hr 09/06/24 11:00 09/12/24 20:50 IVPB Infused Q12HR RHYS Infusion Dexmedetomidine HCl 400 mcg in 100 mls @ 11.92 mls/hr 09/06/24 14:00 09/13/24 06:49 Precedex 400 Mcg/100 Ml IV CONT 1 mcg/kg/hr .Q8H24M RHYS 14.9 mls/hr Administration Protocol 0.8 MCG/KG/HR Sodium Chloride 250 mls @ 30 mls/hr 09/13/24 00:15 09/13/24 01:10 Normal Saline Iv IV CONT 09/13/24 08:34 30 mls/hr .Q8H20M STA Administration Potassium Chloride 40 meq/ 520 mls @ 130 mls/hr 09/13/24 08:00 Dextrose IVPB 09/13/24 11:59 ONCE ONE Insulin Aspart 3 - 6 units 09/09/24 00:00 09/13/24 06:30 Insulin Aspart (*Bkc) 100 Units/Ml SUB-Q Not Given Q6HR RHYS Protocol Metoclopramide HCl 10 mg 09/01/24 08:00 09/13/24 05:51 Metoclopramide Hcl 10 Mg/10 Ml Soln Udc FEED TUBE 10 mg Q6HR RHYS Administration Metoprolol Tartrate 5 mg 09/08/24 11:07 09/11/24 04:12 Metoprolol Tartrate Inj 5 Mg/5 Ml Vial IV PUSH 5 mg Q6H PRN Administration HR>130 Metoprolol Tartrate 25 mg 09/11/24 21:00 09/12/24 20:19 Metoprolol Tartrate 25 Mg Tablet FEED TUBE 25 mg Q12HR RHYS Administration Multi-Ingred Cream/Lotion/Oil/Oint 1 applic 08/30/24 10:20 09/12/24 20:20 Mineral Oil/White Petrolatum Ointment EACH EYE 1 applic Q12HR RHYS Administration Pantoprazole Sodium 40 mg 08/30/24 10:40 09/12/24 20:20 Pantoprazole Sodium Iv 40 Mg Vial IV PUSH 40 mg Q12HR RHYS Administration Prednisolone Acetate 1 drop 08/30/24 21:00 09/12/24 20:20 Prednisolone Acetate 1% Ophth 5 Ml RIGHT EYE 1 drop Q12HR RHYS Administration Sodium Chloride 10 ml 08/30/24 12:17 Central Line Flush IV PUSH PRN PRN with TPN bag changes Sodium Chloride 20 ml 08/30/24 12:17 09/10/24 05:46 Central Line Flush IV PUSH 20 ml PRN PRN Administration after blood draws Sodium Chloride 10 ml 09/04/24 22:00 09/13/24 06:02 Central Line Flush IV PUSH 10 ml Q8HR RHYS Administration Sodium Chloride 20 ml 09/04/24 12:30 09/09/24 04:45 Central Line Flush IV PUSH 20 ml PRN PRN Administration after blood draws Radiology Results: ITS Impressions Abdomen X-Ray 08/30/24 11:02 IMPRESSION: Bilateral pneumonia. Differential include pulmonary edema. Venous Doppler Study 09/03/24 10:50 IMPRESSION: 1. Extensive deep and superficial venous thrombosis throughout the bilateral upper lungs as detailed above. Findings were discussed with Jacinto Victor, the nurse caring for the patient, at 10:59 AM. ADDENDUM: 09/03/24 1400 CORRECTION: There is a dictation error in the impression section. With the correction capitalized this should read- Extensive deep and superficial venous thrombosis throughout the bilateral upper LIMBS as detailed above. Head CT 09/09/24 15:44 IMPRESSION: Large acute bilateral occipital lobe infarcts. Multifocal bilateral cerebellar infarcts. Focal bilateral thalamic acute infarcts. Results reported telephonically to Halle Browning RN by Dr. Campos at 3:48 PM on 09/09/2024. Chest/Abdomen/Pelvis CT 09/09/24 15:56 IMPRESSION: Endotracheal tube terminates 2.5 cm above the sun. Right IJ central line terminates in the right atrium. CT findings suggestive of right lower lobe pneumonia. Additional patchy bilateral groundglass and reticular opacities may represent edema or multifocal infection, to include atypical variants. Small bilateral pleural effusions. Asymmetric chest wall edema, greater on the right. Correlate for signs of infection. Subacute pelvic and sacral fractures. Chest X-Ray 09/13/24 06:49 Impression: Right basilar pulmonary edema versus pneumonia. Small right pleural effusion. Support tubes, as above. Labs Labs: Laboratory Results - last 24 hr 09/07/24 09/11/24 09/12/24 11:01 14:21 02:04 WBC RBC Hgb Hct MCV MCH MCHC RDW Plt Count MPV Immature Gran % (Auto) Neut % (Auto) Lymph % (Auto) [place] % (Auto) Eos % (Auto) Baso % (Auto) Lymph # (Auto) [place] # (Auto) Eos # (Auto) Baso # (Auto) Abs Immat Gran (auto) Absolute Neuts (auto) Absolute Nucleated RBC Total Counted Neutrophils % (Manual) Band Neutrophils % Lymphocytes % (Manual) Monocytes % (Manual) Eosinophils % (Manual) Basophils % (Manual) Nucleated RBC % Abs Neuts (Manual) Abs Lymphs (Manual) Abs Monocytes (Manual) Absolute Eos (Manual) Abs Basophils (Manual) Hypersegmented Neuts Platelet Estimate Hypochromasia Anisocytosis Schistocytes PT INR APTT Puncture Site ABG pH ABG pCO2 ABG pO2 ABG PO2/FiO2 Ratio ABG HCO3 ABG O2 Saturation ABG O2 Content ABG Base Excess A-a Gradient Oxyhemoglobin Total Hemoglobin O2 Delivery Device O2 Liters/Min Minute Volume Vent Rate Vent Mode FiO2 Tidal Volume PEEP Peak Inspir Pressure Pressure Support Sodium Potassium Chloride Carbon Dioxide Anion Gap BUN Creatinine Estim Creat Clear Calc Estimated GFR Glucose POC Capillary Glucose Lactic Acid Calcium Phosphorus Magnesium Total Bilirubin Direct Bilirubin GGT 51 AST ALT Alkaline Phosphatase Total Protein Albumin Vit D 1,25-Dihyd Total 38 1,25 Dihydroxy Vit D2 <8 1,25 Dihydroxy Vit D3 38 PTH Related Protein 10 L Stl Occult Blood (IFOB) Vancomycin Trough Blood Type O Positive Antibody Screen Negative Crossmatch See Detail 09/12/24 09/12/24 09/12/24 06:31 08:16 11:13 WBC 38.3 H RBC 2.87 L Hgb 8.3 L Hct 26.4 L MCV 92.0 MCH 28.9 MCHC 31.4 L RDW 19.6 H Plt Count 478 H MPV 11.6 H Immature Gran % (Auto) Neut % (Auto) Lymph % (Auto) [place] % (Auto) Eos % (Auto) Baso % (Auto) Lymph # (Auto) [place] # (Auto) Eos # (Auto) Baso # (Auto) Abs Immat Gran (auto) Absolute Neuts (auto) Absolute Nucleated RBC Total Counted 100 Neutrophils % (Manual) 75 H Band Neutrophils % 6 Lymphocytes % (Manual) 13 L Monocytes % (Manual) 6 Eosinophils % (Manual) Basophils % (Manual) Nucleated RBC % Abs Neuts (Manual) 28.26 H Abs Lymphs (Manual) 4.53 H Abs Monocytes (Manual) 2.09 H Absolute Eos (Manual) Abs Basophils (Manual) Hypersegmented Neuts Present Platelet Estimate Increased Hypochromasia 1+ Anisocytosis 2+ Schistocytes None seen PT 17.4 H INR 1.4 APTT 46.6 H Puncture Site ABG pH ABG pCO2 ABG pO2 ABG PO2/FiO2 Ratio ABG HCO3 ABG O2 Saturation ABG O2 Content ABG Base Excess A-a Gradient Oxyhemoglobin Total Hemoglobin O2 Delivery Device O2 Liters/Min Minute Volume Vent Rate Vent Mode FiO2 Tidal Volume PEEP Peak Inspir Pressure Pressure Support Sodium 150 H Potassium 3.2 L Chloride 115 H Carbon Dioxide 26 Anion Gap 9 BUN 60 H Creatinine 1.13 H Estim Creat Clear Calc 33 Estimated GFR 48 L Glucose 114 H POC Capillary Glucose 103 Lactic Acid 1.3 Calcium 8.8 Phosphorus 4.4 Magnesium 2.1 Total Bilirubin 0.4 Direct Bilirubin 0.0 GGT AST 66 H ALT 37 H Alkaline Phosphatase 111 Total Protein 5.6 L Albumin 2.6 L Vit D 1,25-Dihyd Total 1,25 Dihydroxy Vit D2 1,25 Dihydroxy Vit D3 PTH Related Protein Stl Occult Blood (IFOB) Vancomycin Trough Blood Type Antibody Screen Crossmatch 09/12/24 09/12/24 09/12/24 14:24 17:59 23:46 WBC 36.1 H 30.6 H RBC 2.64 L 2.14 L Hgb 7.6 L 6.2 L* Hct 24.1 L 19.8 L* MCV 91.3 92.5 MCH 28.8 29.0 MCHC 31.5 L 31.3 L RDW 20.1 H 20.1 H Plt Count 443 H 379 H MPV 11.0 H 11.0 H Immature Gran % (Auto) Neut % (Auto) Lymph % (Auto) [place] % (Auto) Eos % (Auto) Baso % (Auto) Lymph # (Auto) [place] # (Auto) Eos # (Auto) Baso # (Auto) Abs Immat Gran (auto) Absolute Neuts (auto) Absolute Nucleated RBC Total Counted Neutrophils % (Manual) Band Neutrophils % Lymphocytes % (Manual) Monocytes % (Manual) Eosinophils % (Manual) Basophils % (Manual) Nucleated RBC % Abs Neuts (Manual) Abs Lymphs (Manual) Abs Monocytes (Manual) Absolute Eos (Manual) Abs Basophils (Manual) Hypersegmented Neuts Platelet Estimate Hypochromasia Anisocytosis Schistocytes PT 17.5 H 15.8 H INR 1.4 1.3 APTT 49.6 H 44.0 H Puncture Site ABG pH ABG pCO2 ABG pO2 ABG PO2/FiO2 Ratio ABG HCO3 ABG O2 Saturation ABG O2 Content ABG Base Excess A-a Gradient Oxyhemoglobin Total Hemoglobin O2 Delivery Device O2 Liters/Min Minute Volume Vent Rate Vent Mode FiO2 Tidal Volume PEEP Peak Inspir Pressure Pressure Support Sodium 151 H Potassium 3.0 L Chloride 117 H Carbon Dioxide 27 Anion Gap 7 BUN 58 H Creatinine 1.11 H Estim Creat Clear Calc 33 Estimated GFR 49 L Glucose 127 H POC Capillary Glucose 117 H Lactic Acid 1.2 1.1 Calcium 8.5 Phosphorus 4.5 Magnesium 1.9 Total Bilirubin 0.3 Direct Bilirubin GGT 42 31 AST 59 H ALT 33 Alkaline Phosphatase 110 Total Protein 5.4 L Albumin 2.5 L Vit D 1,25-Dihyd Total 1,25 Dihydroxy Vit D2 1,25 Dihydroxy Vit D3 PTH Related Protein Stl Occult Blood (IFOB) Vancomycin Trough Blood Type Antibody Screen Crossmatch 09/13/24 09/13/24 09/13/24 00:24 03:20 05:12 WBC RBC Hgb Hct MCV MCH MCHC RDW Plt Count MPV Immature Gran % (Auto) Neut % (Auto) Lymph % (Auto) [place] % (Auto) Eos % (Auto) Baso % (Auto) Lymph # (Auto) [place] # (Auto) Eos # (Auto) Baso # (Auto) Abs Immat Gran (auto) Absolute Neuts (auto) Absolute Nucleated RBC Total Counted Neutrophils % (Manual) Band Neutrophils % Lymphocytes % (Manual) Monocytes % (Manual) Eosinophils % (Manual) Basophils % (Manual) Nucleated RBC % Abs Neuts (Manual) Abs Lymphs (Manual) Abs Monocytes (Manual) Absolute Eos (Manual) Abs Basophils (Manual) Hypersegmented Neuts Platelet Estimate Hypochromasia Anisocytosis Schistocytes PT INR APTT Puncture Site Right radial ABG pH 7.485 H ABG pCO2 32.7 L ABG pO2 118.7 H ABG PO2/FiO2 Ratio 3.96 ABG HCO3 24.1 ABG O2 Saturation 98.6 ABG O2 Content 14.4 L ABG Base Excess 1.0 A-a Gradient 56.8 Oxyhemoglobin 97.7 Total Hemoglobin 10.3 L O2 Delivery Device Ventilator O2 Liters/Min Not Reportable Minute Volume Not Reportable Vent Rate 18 Vent Mode Cmv FiO2 30 Tidal Volume 300 PEEP 8 Peak Inspir Pressure Not Reportable Pressure Support Not Reportable Sodium 150 H Potassium 3.7 Chloride 119 H Carbon Dioxide 25 Anion Gap 6 BUN 53 H Creatinine 1.00 Estim Creat Clear Calc 37 Estimated GFR 55 L Glucose 115 H POC Capillary Glucose Lactic Acid Calcium 8.4 Phosphorus Magnesium 1.9 Total Bilirubin Direct Bilirubin GGT AST ALT Alkaline Phosphatase Total Protein Albumin Vit D 1,25-Dihyd Total 1,25 Dihydroxy Vit D2 1,25 Dihydroxy Vit D3 PTH Related Protein Stl Occult Blood (IFOB) Negative Vancomycin Trough Blood Type Antibody Screen Crossmatch 09/13/24 09/13/24 09/13/24 05:59 05:59 05:59 WBC 27.4 H RBC 3.63 L Hgb 10.4 L D Hct 32.5 L MCV 89.5 MCH 28.7 MCHC 32.0 RDW 18.2 H Plt Count 373 MPV 11.4 H Immature Gran % (Auto) Not Reportable Neut % (Auto) Not Reportable Lymph % (Auto) Not Reportable [place] % (Auto) Not Reportable Eos % (Auto) Not Reportable Baso % (Auto) Not Reportable Lymph # (Auto) Not Reportable [place] # (Auto) Not Reportable Eos # (Auto) Not Reportable Baso # (Auto) Not Reportable Abs Immat Gran (auto) Not Reportable Absolute Neuts (auto) Not Reportable Absolute Nucleated RBC Not Reportable Total Counted 100 Neutrophils % (Manual) 76 H Band Neutrophils % 4 Lymphocytes % (Manual) 12 L Monocytes % (Manual) 7 Eosinophils % (Manual) 0 Basophils % (Manual) 1 Nucleated RBC % Not Reportable Abs Neuts (Manual) 21.92 H Abs Lymphs (Manual) 3.28 Abs Monocytes (Manual) 1.91 H Absolute Eos (Manual) 0.00 L Abs Basophils (Manual) 0.27 H Hypersegmented Neuts Present Platelet Estimate Adequate Hypochromasia Anisocytosis 1+ Schistocytes None seen PT 15.2 H INR 1.2 APTT 42.4 H Puncture Site ABG pH ABG pCO2 ABG pO2 ABG PO2/FiO2 Ratio ABG HCO3 ABG O2 Saturation ABG O2 Content ABG Base Excess A-a Gradient Oxyhemoglobin Total Hemoglobin O2 Delivery Device O2 Liters/Min Minute Volume Vent Rate Vent Mode FiO2 Tidal Volume PEEP Peak Inspir Pressure Pressure Support Sodium 152 H 151 H Potassium 3.4 3.4 Chloride 119 H Carbon Dioxide Anion Gap BUN Creatinine Estim Creat Clear Calc Estimated GFR Glucose POC Capillary Glucose Lactic Acid Calcium Phosphorus Magnesium Total Bilirubin Direct Bilirubin GGT AST ALT Alkaline Phosphatase Total Protein Albumin Vit D 1,25-Dihyd Total 1,25 Dihydroxy Vit D2 1,25 Dihydroxy Vit D3 PTH Related Protein Stl Occult Blood (IFOB) Vancomycin Trough Blood Type Antibody Screen Crossmatch 09/13/24 09/13/24 09/13/24 05:59 05:59 05:59 WBC RBC Hgb Hct MCV MCH MCHC RDW Plt Count MPV Immature Gran % (Auto) Neut % (Auto) Lymph % (Auto) [place] % (Auto) Eos % (Auto) Baso % (Auto) Lymph # (Auto) [place] # (Auto) Eos # (Auto) Baso # (Auto) Abs Immat Gran (auto) Absolute Neuts (auto) Absolute Nucleated RBC Total Counted Neutrophils % (Manual) Band Neutrophils % Lymphocytes % (Manual) Monocytes % (Manual) Eosinophils % (Manual) Basophils % (Manual) Nucleated RBC % Abs Neuts (Manual) Abs Lymphs (Manual) Abs Monocytes (Manual) Absolute Eos (Manual) Abs Basophils (Manual) Hypersegmented Neuts Platelet Estimate Hypochromasia Anisocytosis Schistocytes PT INR APTT Puncture Site ABG pH ABG pCO2 ABG pO2 ABG PO2/FiO2 Ratio ABG HCO3 ABG O2 Saturation ABG O2 Content ABG Base Excess A-a Gradient Oxyhemoglobin Total Hemoglobin O2 Delivery Device O2 Liters/Min Minute Volume Vent Rate Vent Mode FiO2 Tidal Volume PEEP Peak Inspir Pressure Pressure Support Sodium Potassium Chloride 119 H Carbon Dioxide 25 25 Anion Gap 8 7 BUN 52 H Creatinine Estim Creat Clear Calc Estimated GFR Glucose POC Capillary Glucose Lactic Acid Calcium Phosphorus Magnesium Total Bilirubin Direct Bilirubin GGT AST ALT Alkaline Phosphatase Total Protein Albumin Vit D 1,25-Dihyd Total 1,25 Dihydroxy Vit D2 1,25 Dihydroxy Vit D3 PTH Related Protein Stl Occult Blood (IFOB) Vancomycin Trough Blood Type Antibody Screen Crossmatch 09/13/24 09/13/24 09/13/24 05:59 05:59 05:59 WBC RBC Hgb Hct MCV MCH MCHC RDW Plt Count MPV Immature Gran % (Auto) Neut % (Auto) Lymph % (Auto) [place] % (Auto) Eos % (Auto) Baso % (Auto) Lymph # (Auto) [place] # (Auto) Eos # (Auto) Baso # (Auto) Abs Immat Gran (auto) Absolute Neuts (auto) Absolute Nucleated RBC Total Counted Neutrophils % (Manual) Band Neutrophils % Lymphocytes % (Manual) Monocytes % (Manual) Eosinophils % (Manual) Basophils % (Manual) Nucleated RBC % Abs Neuts (Manual) Abs Lymphs (Manual) Abs Monocytes (Manual) Absolute Eos (Manual) Abs Basophils (Manual) Hypersegmented Neuts Platelet Estimate Hypochromasia Anisocytosis Schistocytes PT INR APTT Puncture Site ABG pH ABG pCO2 ABG pO2 ABG PO2/FiO2 Ratio ABG HCO3 ABG O2 Saturation ABG O2 Content ABG Base Excess A-a Gradient Oxyhemoglobin Total Hemoglobin O2 Delivery Device O2 Liters/Min Minute Volume Vent Rate Vent Mode FiO2 Tidal Volume PEEP Peak Inspir Pressure Pressure Support Sodium Potassium Chloride Carbon Dioxide Anion Gap BUN 51 H Creatinine 0.96 0.90 Estim Creat Clear Calc 38 41 Estimated GFR 58 L Glucose POC Capillary Glucose Lactic Acid Calcium Phosphorus Magnesium Total Bilirubin Direct Bilirubin GGT AST ALT Alkaline Phosphatase Total Protein Albumin Vit D 1,25-Dihyd Total 1,25 Dihydroxy Vit D2 1,25 Dihydroxy Vit D3 PTH Related Protein Stl Occult Blood (IFOB) Vancomycin Trough Blood Type Antibody Screen Crossmatch 09/13/24 09/13/24 09/13/24 05:59 05:59 05:59 WBC RBC Hgb Hct MCV MCH MCHC RDW Plt Count MPV Immature Gran % (Auto) Neut % (Auto) Lymph % (Auto) [place] % (Auto) Eos % (Auto) Baso % (Auto) Lymph # (Auto) [place] # (Auto) Eos # (Auto) Baso # (Auto) Abs Immat Gran (auto) Absolute Neuts (auto) Absolute Nucleated RBC Total Counted Neutrophils % (Manual) Band Neutrophils % Lymphocytes % (Manual) Monocytes % (Manual) Eosinophils % (Manual) Basophils % (Manual) Nucleated RBC % Abs Neuts (Manual) Abs Lymphs (Manual) Abs Monocytes (Manual) Absolute Eos (Manual) Abs Basophils (Manual) Hypersegmented Neuts Platelet Estimate Hypochromasia Anisocytosis Schistocytes PT INR APTT Puncture Site ABG pH ABG pCO2 ABG pO2 ABG PO2/FiO2 Ratio ABG HCO3 ABG O2 Saturation ABG O2 Content ABG Base Excess A-a Gradient Oxyhemoglobin Total Hemoglobin O2 Delivery Device O2 Liters/Min Minute Volume Vent Rate Vent Mode FiO2 Tidal Volume PEEP Peak Inspir Pressure Pressure Support Sodium Potassium Chloride Carbon Dioxide Anion Gap BUN Creatinine Estim Creat Clear Calc Estimated GFR > 60 Glucose 107 108 POC Capillary Glucose Lactic Acid 1.1 Calcium 8.5 8.4 Phosphorus 3.9 Magnesium Total Bilirubin Direct Bilirubin GGT AST ALT Alkaline Phosphatase Total Protein Albumin Vit D 1,25-Dihyd Total 1,25 Dihydroxy Vit D2 1,25 Dihydroxy Vit D3 PTH Related Protein Stl Occult Blood (IFOB) Vancomycin Trough Blood Type Antibody Screen Crossmatch 09/13/24 09/13/24 09/13/24 05:59 05:59 05:59 WBC RBC Hgb Hct MCV MCH MCHC RDW Plt Count MPV Immature Gran % (Auto) Neut % (Auto) Lymph % (Auto) [place] % (Auto) Eos % (Auto) Baso % (Auto) Lymph # (Auto) [place] # (Auto) Eos # (Auto) Baso # (Auto) Abs Immat Gran (auto) Absolute Neuts (auto) Absolute Nucleated RBC Total Counted Neutrophils % (Manual) Band Neutrophils % Lymphocytes % (Manual) Monocytes % (Manual) Eosinophils % (Manual) Basophils % (Manual) Nucleated RBC % Abs Neuts (Manual) Abs Lymphs (Manual) Abs Monocytes (Manual) Absolute Eos (Manual) Abs Basophils (Manual) Hypersegmented Neuts Platelet Estimate Hypochromasia Anisocytosis Schistocytes PT INR APTT Puncture Site ABG pH ABG pCO2 ABG pO2 ABG PO2/FiO2 Ratio ABG HCO3 ABG O2 Saturation ABG O2 Content ABG Base Excess A-a Gradient Oxyhemoglobin Total Hemoglobin O2 Delivery Device O2 Liters/Min Minute Volume Vent Rate Vent Mode FiO2 Tidal Volume PEEP Peak Inspir Pressure Pressure Support Sodium Potassium Chloride Carbon Dioxide Anion Gap BUN Creatinine Estim Creat Clear Calc Estimated GFR Glucose POC Capillary Glucose Lactic Acid Calcium Phosphorus 3.9 Magnesium 1.9 1.9 Total Bilirubin 0.5 0.5 Direct Bilirubin 0.0 GGT AST 53 H ALT Alkaline Phosphatase Total Protein Albumin Vit D 1,25-Dihyd Total 1,25 Dihydroxy Vit D2 1,25 Dihydroxy Vit D3 PTH Related Protein Stl Occult Blood (IFOB) Vancomycin Trough Blood Type Antibody Screen Crossmatch 09/13/24 09/13/24 09/13/24 05:59 05:59 05:59 WBC RBC Hgb Hct MCV MCH MCHC RDW Plt Count MPV Immature Gran % (Auto) Neut % (Auto) Lymph % (Auto) [place] % (Auto) Eos % (Auto) Baso % (Auto) Lymph # (Auto) [place] # (Auto) Eos # (Auto) Baso # (Auto) Abs Immat Gran (auto) Absolute Neuts (auto) Absolute Nucleated RBC Total Counted Neutrophils % (Manual) Band Neutrophils % Lymphocytes % (Manual) Monocytes % (Manual) Eosinophils % (Manual) Basophils % (Manual) Nucleated RBC % Abs Neuts (Manual) Abs Lymphs (Manual) Abs Monocytes (Manual) Absolute Eos (Manual) Abs Basophils (Manual) Hypersegmented Neuts Platelet Estimate Hypochromasia Anisocytosis Schistocytes PT INR APTT Puncture Site ABG pH ABG pCO2 ABG pO2 ABG PO2/FiO2 Ratio ABG HCO3 ABG O2 Saturation ABG O2 Content ABG Base Excess A-a Gradient Oxyhemoglobin Total Hemoglobin O2 Delivery Device O2 Liters/Min Minute Volume Vent Rate Vent Mode FiO2 Tidal Volume PEEP Peak Inspir Pressure Pressure Support Sodium Potassium Chloride Carbon Dioxide Anion Gap BUN Creatinine Estim Creat Clear Calc Estimated GFR Glucose POC Capillary Glucose Lactic Acid Calcium Phosphorus Magnesium Total Bilirubin Direct Bilirubin GGT AST 55 H ALT 28 29 Alkaline Phosphatase 94 90 Total Protein 5.6 L Albumin Vit D 1,25-Dihyd Total 1,25 Dihydroxy Vit D2 1,25 Dihydroxy Vit D3 PTH Related Protein Stl Occult Blood (IFOB) Vancomycin Trough Blood Type Antibody Screen Crossmatch 09/13/24 09/13/24 05:59 05:59 WBC RBC Hgb Hct MCV MCH MCHC RDW Plt Count MPV Immature Gran % (Auto) Neut % (Auto) Lymph % (Auto) [place] % (Auto) Eos % (Auto) Baso % (Auto) Lymph # (Auto) [place] # (Auto) Eos # (Auto) Baso # (Auto) Abs Immat Gran (auto) Absolute Neuts (auto) Absolute Nucleated RBC Total Counted Neutrophils % (Manual) Band Neutrophils % Lymphocytes % (Manual) Monocytes % (Manual) Eosinophils % (Manual) Basophils % (Manual) Nucleated RBC % Abs Neuts (Manual) Abs Lymphs (Manual) Abs Monocytes (Manual) Absolute Eos (Manual) Abs Basophils (Manual) Hypersegmented Neuts Platelet Estimate Hypochromasia Anisocytosis Schistocytes PT INR APTT Puncture Site ABG pH ABG pCO2 ABG pO2 ABG PO2/FiO2 Ratio ABG HCO3 ABG O2 Saturation ABG O2 Content ABG Base Excess A-a Gradient Oxyhemoglobin Total Hemoglobin O2 Delivery Device O2 Liters/Min Minute Volume Vent Rate Vent Mode FiO2 Tidal Volume PEEP Peak Inspir Pressure Pressure Support Sodium Potassium Chloride Carbon Dioxide Anion Gap BUN Creatinine Estim Creat Clear Calc Estimated GFR Glucose POC Capillary Glucose Lactic Acid Calcium Phosphorus Magnesium Total Bilirubin Direct Bilirubin GGT AST ALT Alkaline Phosphatase Total Protein 5.7 L Albumin 2.8 L 2.8 L Vit D 1,25-Dihyd Total 1,25 Dihydroxy Vit D2 1,25 Dihydroxy Vit D3 PTH Related Protein Stl Occult Blood (IFOB) Vancomycin Trough 21.5 H Blood Type Antibody Screen Crossmatch Quality VTE Prophylaxis VTE prophylaxis: mechanical ordered
[2024-09-13] MEDS: HYDROCORTISONE SODIUM SUCCINATE 100 MG/2 ML VIAL 20 MG IV PUSH (08:19)
[2024-09-13] MEDS: MEROPENEM 1 GM/NS 100 ML 1 GM/100 ML BAG IVPB (08:19)
[2024-09-13] MEDS: MINERAL OIL/WHITE PETROLATUM OINTMENT 1 APPLIC EACH EYE ×2 (08:19→20:18)
[2024-09-13] MEDS: PANTOPRAZOLE SODIUM IV 40 MG VIAL IV PUSH (08:19)
[2024-09-13] MEDS: MICAFUNGIN SODIUM 100 MG in SODIUM CHLORIDE 0.9% IV 100 ML IVPB (08:20)
[2024-09-13] MEDS: METOPROLOL TARTRATE 25 MG TABLET FEED TUBE (08:20)
[2024-09-13] MEDS: prednisoLONE ACETATE 1% OPHTH 5 ML 1 DROP RIGHT EYE (08:20)
[2024-09-13] MEDS: POTASSIUM CHLORIDE INJ 40 MEQ in DEXTROSE 5% IN WATER 500 ML 130 MEQ IVPB (09:01)
--- NOTE | 2024-09-13 09:25 | PCDIET ---
Nutrition note: Palliative wean from vent planned for today. Tube feeding to discontinue at that time. Will follow for other nutrition needs.
--- NOTE | 2024-09-13 10:18 | PCFNICU ---
ICU Rounding Note: Pt current nutrition is Vital AF 1.2 @ 20 ml/h with 30 ml flushes. Nutrition recommendation: Continue with current nutrition care plan and orders for tolerance Last recorded weight is 57.94 kg. Bowel Motility: Liquid stool per FMS +1 09/13 Labs Reviewed: Hgb 10.4, Hct 32.5, Alb 2.8, Na 151, BUN 51 Meds Noted: Precedex, reglan, protonix Skin: Stage 3 coccyx Additional Notes: Tolerating tube feeding fairly at trickle rate. Family is discussing plan of care. Continue with Vital AF 1.2 @ 20 ml/h and advance if tolerating. Following daily in ICU rounds. Monitoring tube feeding orders, weights, labs, tolerance, plan of care, vent settings, vitals Follow up Tuesday/Tuesday. Daily rounds.
[2024-09-13 10:52] LABS: GGT 47 U/L (3-65)
--- NOTE | 2024-09-13 13:02 | PM.EVENT ---
Event Note Event Note Event Note: After discussion with other family members and among themselves, patient's son [id number] and ex- have decided in accordance with pt's wishes, to discontinue all medical therapy and institute comfort measures only. 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 They also understand that patient will be have significant disability and they do not believe patient wants to live that poor quality of life. She had multiple medical problems even before she was admitted. They all are in agreement at this time. I had earlier explained them that I will use opioids, anxiolytics and other agents on as needed basis to promote comfort and discontinue all medical therapy, lab testing and invasive monitoring. There finally decided to proceed with palliative extubation and comfort care. They have decided not to proceed with organ donation. I have placed comfort care order set in the chart. And I requested patient's nurse to notify hospitalist before proceeding.
[2024-09-13] MEDS: LORazepam INJ (*CRX) 2 MG/ML VIAL 1 MG IV PUSH (13:54)
[2024-09-13] MEDS: MORPHINE SULFATE INJ (*CRX) 10 MG/ML AMP 5 MG IV PUSH (13:55)
[2024-09-13] MEDS: MORPHINE SULFATE (*CRX) 2 MG/ML INJ 4 MG IV PUSH ×3 (15:18→23:43)
[2024-09-13] MEDS: LORazepam INJ (*CRX) 2 MG/ML VIAL IV PUSH ×2 (16:26→18:09)
--- NOTE | 2024-09-13 18:40 | PC.NURSE ---
pt transfered via bed to room 256, bedside report obtained, reviewed plan of care and course of stay this hospitalization, family also at bedside, updated, pt resting comfortably
--- NOTE | 2024-09-13 19:48 | P.PNIM_ITS ---
Progress Note: A&P Assessment and Plan (1) Encephalopathy: Code(s): G93.40 - Encephalopathy, unspecified Status: Acute Assessment and Plan: Patient has been off sedation for more than 72 hours, remains on Precedex infusion. -09/09/2024: CT scan of the brain: Large acute bilateral occipital lobe infarcts. Multifocal bilateral cerebellar infarcts. Focal bilateral thalamic acute infarcts. Family meeting today and they decided to move patient toward comfort measures. Patient was extubated and comfort measures instituted. (2) Acute respiratory failure: Code(s): J96.00 - Acute respiratory failure, unspecified whether with hypoxia or hypercapnia Status: Acute Assessment and Plan: Acute respiratory failure and sepsis secondary to bilateral Pseudomonas pneumonia in an immunocompromised patient who was on methotrexate and hydroxychloroquine. -ARDS physiology -08/30: Intubated for tachypnea, tachycardia, respiratory distress 08/31: bronchoscopy which did not show any LR hemorrhage or tracheobronchitis 08/31: BAL culture is growing Pseudomonas which is pansensitive. Also Milagros glabrata -08/29: Blood culture negative -08/20: sputum culture negative -09/04: Repeat blood cultures are negative PCR for influenza RSV and COVID was negative Urine Legionella negative and pneumococcal antigen negative Negative Mycoplasma IgM Patient on low-dose hydrocortisone as patient has been on chronic steroid use at home -09/04: Patient placed in prone position due to increased oxygen requirements secondary to ARDS and Pseudomonas pneumonia. Patient was also paralyzed with rocuronium and started on Nimbex infusion for ventilator synchrony 09/05: prone position, ABGs reviewed, ventilator adjusted. Patient will be placed in supine position, off Nimbex infusion 09/06: Patient was placed in supine position yesterday and remains in supine position this morning. Currently on 45% FiO2 and peep of 12 with good O2 sats. I have asked the bedside RN to start weaning sedation, start Precedex infusion if needed 09/06: . Given that patient's WBC count is elevated will switch cefepime to meropenem (09/06). Elevated WBC count could also be related to steroids 09/07: Continue meropenem and Levaquin, WBC count trending down, continue to monitor. Chest x-ray also improving 09/08: WBC count remains elevated, add vancomycin. Weaned PEEP to 8 and FiO2 to 35% 09/09: Place patient on pressure support ventilation 10/, tolerated for about 4 hours after which she got tachypneic tachycardic was switched to CMV mode of ventilation. 09/10: Continue meropenem, and, micafungin 09/13 DC vancomycin and Levaquin (3) Gastroesophageal reflux disease: Qualifiers: Esophagitis presence: esophagitis presence not specified Qualified Code(s): K21.9 - Gastro-esophageal reflux disease without esophagitis Code(s): K21.9 - Gastro-esophageal reflux disease without esophagitis Status: Acute Assessment and Plan: PPI q.12 hours but now stopped (4) FRANK (acute kidney injury): Code(s): N17.9 - Acute kidney failure, unspecified Status: Acute Assessment and Plan: Patient presented with elevated creatinine which was likely secondary to sepsis. Creatinine improved with IV fluids Cut down on further IV fluids and patient was given IV fluids Urine output improved. Creatinine in normal range maintain map above 65 mmHg Monitor urine output electrolytes and creatinine Patient has received Lasix, Bumex, Diuril Ob[place] catheter for accurate I&Os Increased BUN and hypercalcemia -discussed with Nephrology, continue diuresis -09/07: hypercalcemia: Received calcitonin and pamidronate along with diuretic. Effect of pamidronate takes place within 72 hours, Calcium levels improved and normalized continue to monitor (5) Sepsis: Qualifiers: Sepsis acute organ dysfunction status: with acute organ dysfunction Sepsis type: sepsis due to unspecified organism Severe sepsis acute organ dysfunction type: encephalopathy Severe sepsis shock status: without septic shock Qualified Code(s): A41.9 - Sepsis, unspecified organism; R65.20 - Severe sepsis without septic shock; G93.41 - Metabolic encephalopathy Code(s): A41.9 - Sepsis, unspecified organism Status: Acute Assessment and Plan: See above (6) Immunosuppressed status: Code(s): D89.9 - Disorder involving the immune mechanism, unspecified Status: Acute Assessment and Plan: Patient was on steroids and immunosuppressants at home (7) Rheumatoid arthritis: Code(s): M06.9 - Rheumatoid arthritis, unspecified Status: Acute Assessment and Plan: Holding methotrexate and hydroxychloroquine Comfort measures (8) Pneumonia: Qualifiers: Laterality: bilateral Lung location: unspecified part of lung Pneumonia type: due to unspecified organism Qualified Code(s): J18.9 - Pneumonia, unspecified organism Code(s): J18.9 - Pneumonia, unspecified organism Status: Acute Assessment and Plan: See above (9) Urinary tract infection: Qualifiers: Hematuria presence: with hematuria Urinary tract infection type: site unspecified Qualified Code(s): N39.0 - Urinary tract infection, site not specified; R31.9 - Hematuria, unspecified Code(s): N39.0 - Urinary tract infection, site not specified Status: Acute Assessment and Plan: UA suggestive of UTI 08/29: Urine cultures - negative UTI ruled out (10) Herpes labialis: Code(s): B00.1 - Herpesviral vesicular dermatitis Status: Acute Assessment and Plan: Received acyclovir through tube earlier in the course (11) Ileus: Code(s): K56.7 - Ileus, unspecified Status: Acute Assessment and Plan: Bowel sounds absent. Tube feeds on hold. Continue Reglan Continue tube feeds at 20 mL/hour TF are off now (12) Peripheral ischemia: Code(s): I99.8 - Other disorder of circulatory system Status: Acute Assessment and Plan: Patient has developed discoloration/gangrene of all 10 fingers. likely systemic presentation suggest against vascular clot but more like DIC or septic emboli from pseudomonal infection Radial pulses are dopplerable Blood pressure are on the higher side Monitor maintain mean arterial pressure above 65 mmHg Discoloration on her fingers have improved but areas of necrosis remain. She also has blistering noted on some of the fingers likely from edema, continue to monitor Comfort measures now (13) Swelling of both upper extremities: Code(s): M79.89 - Other specified soft tissue disorders Status: Acute Assessment and Plan: Likely secondary to edema as it is bilateral 09/03: Bilateral upper extremity venous Doppler showed extensive deep and superficial venous thrombosis throughout the bilateral upper extremities Lovenox IV q.12 hours but now held (14) Anemia: Qualifiers: Anemia type: unspecified type Qualified Code(s): D64.9 - Anemia, unspecified Code(s): D64.9 - Anemia, unspecified Status: Acute Assessment and Plan: 09/08: Hemoglobin 7.0, will transfuse 1 unit of packed RBC Hemoglobin remains stable, continue to monitor, transfuse if hemoglobin < 7.0 09/02: Patient also received 1 unit of packed RBCs for hemoglobin of 6.9 09/12 patient was given 1 unit of PRBC last night 09/13 patient again Doppler hemoglobin. As per nursing staff the residual was dark. I will hold Lovenox. I will discuss with the family depending on goals of care will consult GI. Continue PPI q.12 hours. Treatment stopped (15) Electrolyte imbalance: Code(s): E87.8 - Other disorders of electrolyte and fluid balance, not elsewhere classified Status: Acute Assessment and Plan: Will give potassium replacement D5 water (16) Tachycardia: Code(s): R00.0 - Tachycardia, unspecified Status: Acute Assessment and Plan: Significantly improved with Precedex infusion. Continue Plan Code Status -Patient is DNR with plan for palliative care Subjective Date/time seen: 09/13/24 19:48 Interval history: 68yo female with rheumatoid arthritis, Crohn's disease, GERD with history of ulcers, osteoporosis on chronic immunosuppressive therapy who presented to the ER via EMS due to altered mental status. Assuming care. Chart reviewed. Patient intubated and low amount of sedation. She is unable to provide hx. Review of Systems Review of Systems: ROS unobtainable: Yes unobtainable due to endotracheal tube and unobtainable due to medical condition Exam Narrative: AF 99.1 155/91 129 30 100% MV Gen - intubated and sedated HEENT - ETT and OGT secured. pupils reacitve. Neck - right IJ TLC secured Chest - Coarse BS CV - RRR S1/S2. Tele showing no significant dysrhythmias Abd - Soft, Positive BS - Obregon secured draining clear yellow urine. FCS with Ext - diffuse UE edema. Heel protectors in place Neuro - arouses and opens eyes but does not follow commands Skin - multiple finger tips are necrotic. Bilateral UE dressings in place Objective Data Vital Signs Vital Signs: Vital Signs - 24 hr 09/12/24 20:00 09/12/24 20:09/12/24 20:00 Temperature 98.8 F Pulse Rate 107 H Respiratory Rate 26 H Blood Pressure 90/62 L Pulse Oximetry 100 100 Oxygen Delivery Mechanical Ventilation Fraction of Inspired Oxygen 30 30 09/12/24 20:00 09/12/24 20:09/12/24 20:00 Temperature Pulse Rate 107 H 108 H 107 H Respiratory Rate 24 H 26 H Blood Pressure 90/62 L Pulse Oximetry 100 Oxygen Delivery Fraction of Inspired Oxygen 09/12/24 20:02 09/12/24 20:15 09/12/24 20:19 Temperature Pulse Rate 107 H 109 H 108 H Respiratory Rate 23 H Blood Pressure 87/62 L Pulse Oximetry 100 100 Oxygen Delivery Mechanical Ventilation Fraction of Inspired Oxygen 30 09/12/24 20:32 09/12/24 20:45 09/12/24 21:00 Temperature Pulse Rate 104 H 104 H 101 H Respiratory Rate 24 H 21 H 25 H Blood Pressure 80/54 L 88/62 L 97/64 L Pulse Oximetry 100 100 100 Oxygen Delivery Fraction of Inspired Oxygen 09/12/24 21:15 09/12/24 21:30 09/12/24 22:00 Temperature Pulse Rate 104 H 101 H 96 Respiratory Rate 21 H 20 Blood Pressure 91/57 L 82/52 L Pulse Oximetry 100 100 Oxygen Delivery Fraction of Inspired Oxygen 09/12/24 22:00 09/12/24 22:00 09/12/24 23:00 Temperature Pulse Rate 96 96 96 Respiratory Rate 24 H 24 H Blood Pressure 101/58 L Pulse Oximetry 100 100 Oxygen Delivery Mechanical Ventilation Fraction of Inspired Oxygen 30 09/13/24 00:00 09/13/24 00:00 09/13/24 00:00 Temperature Pulse Rate 96 Respiratory Rate 25 H Blood Pressure Pulse Oximetry 100 Oxygen Delivery Mechanical Ventilation Fraction of Inspired Oxygen 30 30 09/13/24 00:00 09/13/24 00:00 09/13/24 01:06 Temperature 99.5 F 99.1 F Pulse Rate 96 96 98 Respiratory Rate 26 H 29 H Blood Pressure 98/53 L 109/56 L Pulse Oximetry 100 100 Oxygen Delivery Fraction of Inspired Oxygen 09/13/24 01:21 09/13/24 01:21 09/13/24 01:25 Temperature 99.3 F Pulse Rate 92 92 93 Respiratory Rate 22 H 22 H 22 H Blood Pressure 105/57 L Pulse Oximetry 100 Oxygen Delivery Fraction of Inspired Oxygen 09/13/24 01:25 09/13/24 02:00 09/13/24 02:00 Temperature 99.3 F Pulse Rate 93 95 95 Respiratory Rate 22 H Blood Pressure 105/57 L Pulse Oximetry 100 100 Oxygen Delivery Mechanical Ventilation Fraction of Inspired Oxygen 30 09/13/24 02:00 09/13/24 02:00 09/13/24 02:25 Temperature 99.3 F Pulse Rate 95 95 94 Respiratory Rate 24 H 24 H 27 H Blood Pressure 111/58 L 116/61 Pulse Oximetry 100 100 Oxygen Delivery Fraction of Inspired Oxygen 09/13/24 03:25 09/13/24 03:38 09/13/24 03:55 Temperature 99.5 F 99.5 F 98.9 F Pulse Rate 91 95 95 Respiratory Rate 23 H 22 H 23 H Blood Pressure 126/77 126/77 124/70 Pulse Oximetry 100 100 100 Oxygen Delivery Fraction of Inspired Oxygen 09/13/24 04:00 09/13/24 04:00 09/13/24 04:00 Temperature Pulse Rate 102 H Respiratory Rate Blood Pressure Pulse Oximetry 100 Oxygen Delivery Mechanical Ventilation Fraction of Inspired Oxygen 30 30 09/13/24 04:00 09/13/24 04:00 09/13/24 04:55 Temperature 98.9 F 98.5 F Pulse Rate 102 H 102 H 94 Respiratory Rate 20 20 19 Blood Pressure 124/70 125/76 Pulse Oximetry 100 100 Oxygen Delivery Fraction of Inspired Oxygen 09/13/24 05:18 09/13/24 05:55 09/13/24 06:00 Temperature 98.9 F Pulse Rate 92 93 92 Respiratory Rate 25 H Blood Pressure 135/76 Pulse Oximetry 100 100 Oxygen Delivery Mechanical Ventilation Fraction of Inspired Oxygen 30 09/13/24 06:00 09/13/24 06:05 09/13/24 06:49 Temperature Pulse Rate 92 92 97 Respiratory Rate 24 H 24 H 22 H Blood Pressure 135/76 Pulse Oximetry 100 Oxygen Delivery Fraction of Inspired Oxygen 09/13/24 06:49 09/13/24 08:00 09/13/24 08:00 Temperature Pulse Rate 97 93 Respiratory Rate 22 H Blood Pressure Pulse Oximetry 95 Oxygen Delivery Mechanical Ventilation Fraction of Inspired Oxygen 30 09/13/24 08:00 09/13/24 08:00 09/13/24 08:00 Temperature 99.1 F Pulse Rate 103 H 97 Respiratory Rate 34 H 28 H Blood Pressure 143/90 H Pulse Oximetry 100 Oxygen Delivery Fraction of Inspired Oxygen 30 09/13/24 08:09 09/13/24 08:20 09/13/24 10:00 Temperature Pulse Rate 97 92 97 Respiratory Rate 30 H Blood Pressure Pulse Oximetry 100 Oxygen Delivery Mechanical Ventilation Fraction of Inspired Oxygen 30 09/13/24 10:00 09/13/24 10:00 09/13/24 11:40 Temperature Pulse Rate 100 100 101 H Respiratory Rate 29 H Blood Pressure 134/76 Pulse Oximetry 99 100 Oxygen Delivery Mechanical Ventilation Fraction of Inspired Oxygen 30 09/13/24 12:00 09/13/24 12:00 09/13/24 12:00 Temperature Pulse Rate 100 103 H Respiratory Rate 31 H Blood Pressure 130/71 Pulse Oximetry 95 100 Oxygen Delivery Mechanical Ventilation Fraction of Inspired Oxygen 30 09/13/24 12:00 09/13/24 12:00 09/13/24 13:30 Temperature Pulse Rate 103 H 101 H Respiratory Rate 30 H 31 H Blood Pressure Pulse Oximetry Oxygen Delivery Fraction of Inspired Oxygen 30 09/13/24 13:37 09/13/24 16:00 Temperature Pulse Rate 100 129 H Respiratory Rate 31 H 30 H Blood Pressure 155/91 H Pulse Oximetry 100 Oxygen Delivery Fraction of Inspired Oxygen Intake/Output Intake/Output: Intake & Output 09/10/24 09/11/24 09/12/24 09/13/24 23:59 23:59 23:59 23:59 Intake Total 3859.5 1142.1 2017.0 2320.3 Output Total 3050 2600 870 600 Balance 809.5 -1457.9 1147.0 1720.3 Meds/Results Medications: Active Medications Generic Name Dose Route Start Last Admin Trade Name Freq PRN Reason Stop Dose Admin Acetaminophen 650 mg 08/29/24 18:17 09/11/24 08:57 Acetaminophen 325 Mg Tablet PO 650 mg Q4H PRN Administration Mild Pain (1-3) or Fever Acetaminophen 650 mg 08/30/24 00:43 08/30/24 06:56 Acetaminophen 650 Mg Suppository RECTAL 650 mg Q6H PRN Administration Mild Pain (1-3) or Fever Atropine Sulfate 1 - 2 drop 09/13/24 13:02 Atropine Sulfate 1% Ophth Soln 5 Ml Bottle SUBLINGUAL Q4H PRN Secretions Dextrose 12.5 gm 08/29/24 20:42 08/31/24 20:55 Dextrose 50% 25 Gm/50 Ml Syringe IV PUSH 12.5 gm PRN PRN Administration Hypoglycemia Protocol Enoxaparin Sodium 60 mg 09/03/24 11:35 09/12/24 23:37 Enoxaparin 60 Mg/0.6 Ml Syringe SUB-Q 60 mg Q12H RHYS Administration Glucagon 1 mg 08/29/24 20:42 Glucagon For Inj 1 Mg Vial IM PRN PRN Hypoglycemia Protocol Glucose 15 gm 08/29/24 20:42 Glucose Oral Gel 15 Gm Of Glucse In 37.5 Gm Tube PO PRN PRN Hypoglycemia Protocol Hydralazine HCl 10 mg 09/08/24 15:05 09/09/24 00:43 Hydralazine Hcl 20 Mg/Ml Vial IV PUSH 10 mg Q4HR PRN Administration Blood Pressure - High Dextrose 1,000 mls @ 100 mls/hr 08/29/24 20:42 Dextrose 5% 1,000 Ml IVPB PRN PRN Hypoglycemia Protocol Lorazepam 2 mg 09/13/24 13:02 09/13/24 18:09 Lorazepam Inj (*Crx) 2 Mg/Ml Vial IV PUSH 2 mg Q1H PRN Administration Anxiety/Comfort Metoprolol Tartrate 5 mg 09/08/24 11:07 09/11/24 04:12 Metoprolol Tartrate Inj 5 Mg/5 Ml Vial IV PUSH 5 mg Q6H PRN Administration HR>130 Morphine Sulfate 4 mg 09/13/24 13:02 09/13/24 16:53 Morphine Sulfate (*Crx) 2 Mg/Ml Inj IV PUSH 4 mg Q30M PRN Administration COMFORT Multi-Ingred Cream/Lotion/Oil/Oint 1 applic 08/30/24 10:20 09/13/24 08:19 Mineral Oil/White Petrolatum Ointment EACH EYE 1 applic Q12HR RHYS Administration Sodium Chloride 10 ml 08/30/24 12:17 Central Line Flush IV PUSH PRN PRN with TPN bag changes Sodium Chloride 20 ml 08/30/24 12:17 09/10/24 05:46 Central Line Flush IV PUSH 20 ml PRN PRN Administration after blood draws Sodium Chloride 10 ml 09/04/24 22:00 09/13/24 14:50 Central Line Flush IV PUSH 10 ml Q8HR RHYS Administration Sodium Chloride 20 ml 09/04/24 12:30 09/09/24 04:45 Central Line Flush IV PUSH 20 ml PRN PRN Administration after blood draws Radiology Results: ITS Impressions Abdomen X-Ray 08/30/24 11:02 IMPRESSION: Bilateral pneumonia. Differential include pulmonary edema. Venous Doppler Study 09/03/24 10:50 IMPRESSION: 1. Extensive deep and superficial venous thrombosis throughout the bilateral upper lungs as detailed above. Findings were discussed with Jacinto Victor, the nurse caring for the patient, at 10:59 AM. ADDENDUM: 09/03/24 1400 CORRECTION: There is a dictation error in the impression section. With the correction capitalized this should read- Extensive deep and superficial venous thrombosis throughout the bilateral upper LIMBS as detailed above. Head CT 09/09/24 15:44 IMPRESSION: Large acute bilateral occipital lobe infarcts. Multifocal bilateral cerebellar infarcts. Focal bilateral thalamic acute infarcts. Results reported telephonically to Halle Browning RN by Dr. Campos at 3:48 PM on 09/09/2024. Chest/Abdomen/Pelvis CT 09/09/24 15:56 IMPRESSION: Endotracheal tube terminates 2.5 cm above the sun. Right IJ central line terminates in the right atrium. CT findings suggestive of right lower lobe pneumonia. Additional patchy bilateral groundglass and reticular opacities may represent edema or multifocal infection, to include atypical variants. Small bilateral pleural effusions. Asymmetric chest wall edema, greater on the right. Correlate for signs of infection. Subacute pelvic and sacral fractures. Chest X-Ray 09/13/24 06:49 Impression: Right basilar pulmonary edema versus pneumonia. Small right pleural effusion. Support tubes, as above. Labs Labs: Laboratory Results - last 24 hr 08/31/24 09/07/24 09/11/24 08:39 11:01 14:21 WBC RBC Hgb Hct MCV MCH MCHC RDW Plt Count MPV Immature Gran % (Auto) Neut % (Auto) Lymph % (Auto) [place] % (Auto) Eos % (Auto) Baso % (Auto) Lymph # (Auto) [place] # (Auto) Eos # (Auto) Baso # (Auto) Abs Immat Gran (auto) Absolute Neuts (auto) Absolute Nucleated RBC Total Counted Neutrophils % (Manual) Band Neutrophils % Lymphocytes % (Manual) Monocytes % (Manual) Eosinophils % (Manual) Basophils % (Manual) Nucleated RBC % Abs Neuts (Manual) Abs Lymphs (Manual) Abs Monocytes (Manual) Absolute Eos (Manual) Abs Basophils (Manual) Hypersegmented Neuts Platelet Estimate Anisocytosis Schistocytes PT INR APTT Puncture Site ABG pH ABG pCO2 ABG pO2 ABG PO2/FiO2 Ratio ABG HCO3 ABG O2 Saturation ABG O2 Content ABG Base Excess A-a Gradient Oxyhemoglobin Total Hemoglobin O2 Delivery Device O2 Liters/Min Minute Volume Vent Rate Vent Mode FiO2 Tidal Volume PEEP Peak Inspir Pressure Pressure Support Sodium Potassium Chloride Carbon Dioxide Anion Gap BUN Creatinine Estim Creat Clear Calc Estimated GFR Glucose Lactic Acid Calcium Phosphorus Magnesium Total Bilirubin Direct Bilirubin GGT AST ALT Alkaline Phosphatase Total Protein Albumin PTH Related Protein 10 L Stl Occult Blood (IFOB) Vancomycin Trough CMV Qnt PCR log IU/mL TNP Blood Type O Positive Antibody Screen Negative Crossmatch See Detail 09/12/24 09/12/24 09/12/24 08:16 14:24 23:46 WBC 30.6 H RBC 2.14 L Hgb 6.2 L* Hct 19.8 L* MCV 92.5 MCH 29.0 MCHC 31.3 L RDW 20.1 H Plt Count 379 H MPV 11.0 H Immature Gran % (Auto) Neut % (Auto) Lymph % (Auto) [place] % (Auto) Eos % (Auto) Baso % (Auto) Lymph # (Auto) [place] # (Auto) Eos # (Auto) Baso # (Auto) Abs Immat Gran (auto) Absolute Neuts (auto) Absolute Nucleated RBC Total Counted Neutrophils % (Manual) Band Neutrophils % Lymphocytes % (Manual) Monocytes % (Manual) Eosinophils % (Manual) Basophils % (Manual) Nucleated RBC % Abs Neuts (Manual) Abs Lymphs (Manual) Abs Monocytes (Manual) Absolute Eos (Manual) Abs Basophils (Manual) Hypersegmented Neuts Platelet Estimate Anisocytosis Schistocytes PT 15.8 H INR 1.3 APTT 44.0 H Puncture Site ABG pH ABG pCO2 ABG pO2 ABG PO2/FiO2 Ratio ABG HCO3 ABG O2 Saturation ABG O2 Content ABG Base Excess A-a Gradient Oxyhemoglobin Total Hemoglobin O2 Delivery Device O2 Liters/Min Minute Volume Vent Rate Vent Mode FiO2 Tidal Volume PEEP Peak Inspir Pressure Pressure Support Sodium Potassium Chloride Carbon Dioxide Anion Gap BUN Creatinine Estim Creat Clear Calc Estimated GFR Glucose Lactic Acid 1.1 Calcium Phosphorus Magnesium Total Bilirubin Direct Bilirubin GGT 47 42 31 AST ALT Alkaline Phosphatase Total Protein Albumin PTH Related Protein Stl Occult Blood (IFOB) Vancomycin Trough CMV Qnt PCR log IU/mL Blood Type Antibody Screen Crossmatch 09/13/24 09/13/24 09/13/24 00:24 03:20 05:12 WBC RBC Hgb Hct MCV MCH MCHC RDW Plt Count MPV Immature Gran % (Auto) Neut % (Auto) Lymph % (Auto) [place] % (Auto) Eos % (Auto) Baso % (Auto) Lymph # (Auto) [place] # (Auto) Eos # (Auto) Baso # (Auto) Abs Immat Gran (auto) Absolute Neuts (auto) Absolute Nucleated RBC Total Counted Neutrophils % (Manual) Band Neutrophils % Lymphocytes % (Manual) Monocytes % (Manual) Eosinophils % (Manual) Basophils % (Manual) Nucleated RBC % Abs Neuts (Manual) Abs Lymphs (Manual) Abs Monocytes (Manual) Absolute Eos (Manual) Abs Basophils (Manual) Hypersegmented Neuts Platelet Estimate Anisocytosis Schistocytes PT INR APTT Puncture Site Right radial ABG pH 7.485 H ABG pCO2 32.7 L ABG pO2 118.7 H ABG PO2/FiO2 Ratio 3.96 ABG HCO3 24.1 ABG O2 Saturation 98.6 ABG O2 Content 14.4 L ABG Base Excess 1.0 A-a Gradient 56.8 Oxyhemoglobin 97.7 Total Hemoglobin 10.3 L O2 Delivery Device Ventilator O2 Liters/Min Not Reportable Minute Volume Not Reportable Vent Rate 18 Vent Mode Cmv FiO2 30 Tidal Volume 300 PEEP 8 Peak Inspir Pressure Not Reportable Pressure Support Not Reportable Sodium 150 H Potassium 3.7 Chloride 119 H Carbon Dioxide 25 Anion Gap 6 BUN 53 H Creatinine 1.00 Estim Creat Clear Calc 37 Estimated GFR 55 L Glucose 115 H Lactic Acid Calcium 8.4 Phosphorus Magnesium 1.9 Total Bilirubin Direct Bilirubin GGT AST ALT Alkaline Phosphatase Total Protein Albumin PTH Related Protein Stl Occult Blood (IFOB) Negative Vancomycin Trough CMV Qnt PCR log IU/mL Blood Type Antibody Screen Crossmatch 09/13/24 09/13/24 09/13/24 05:59 05:59 05:59 WBC 27.4 H RBC 3.63 L Hgb 10.4 L D Hct 32.5 L MCV 89.5 MCH 28.7 MCHC 32.0 RDW 18.2 H Plt Count 373 MPV 11.4 H Immature Gran % (Auto) Not Reportable Neut % (Auto) Not Reportable Lymph % (Auto) Not Reportable [place] % (Auto) Not Reportable Eos % (Auto) Not Reportable Baso % (Auto) Not Reportable Lymph # (Auto) Not Reportable [place] # (Auto) Not Reportable Eos # (Auto) Not Reportable Baso # (Auto) Not Reportable Abs Immat Gran (auto) Not Reportable Absolute Neuts (auto) Not Reportable Absolute Nucleated RBC Not Reportable Total Counted 100 Neutrophils % (Manual) 76 H Band Neutrophils % 4 Lymphocytes % (Manual) 12 L Monocytes % (Manual) 7 Eosinophils % (Manual) 0 Basophils % (Manual) 1 Nucleated RBC % Not Reportable Abs Neuts (Manual) 21.92 H Abs Lymphs (Manual) 3.28 Abs Monocytes (Manual) 1.91 H Absolute Eos (Manual) 0.00 L Abs Basophils (Manual) 0.27 H Hypersegmented Neuts Present Platelet Estimate Adequate Anisocytosis 1+ Schistocytes None seen PT 15.2 H INR 1.2 APTT 42.4 H Puncture Site ABG pH ABG pCO2 ABG pO2 ABG PO2/FiO2 Ratio ABG HCO3 ABG O2 Saturation ABG O2 Content ABG Base Excess A-a Gradient Oxyhemoglobin Total Hemoglobin O2 Delivery Device O2 Liters/Min Minute Volume Vent Rate Vent Mode FiO2 Tidal Volume PEEP Peak Inspir Pressure Pressure Support Sodium 152 H 151 H Potassium 3.4 3.4 Chloride 119 H Carbon Dioxide Anion Gap BUN Creatinine Estim Creat Clear Calc Estimated GFR Glucose Lactic Acid Calcium Phosphorus Magnesium Total Bilirubin Direct Bilirubin GGT AST ALT Alkaline Phosphatase Total Protein Albumin PTH Related Protein Stl Occult Blood (IFOB) Vancomycin Trough CMV Qnt PCR log IU/mL Blood Type Antibody Screen Crossmatch 09/13/24 09/13/24 09/13/24 05:59 05:59 05:59 WBC RBC Hgb Hct MCV MCH MCHC RDW Plt Count MPV Immature Gran % (Auto) Neut % (Auto) Lymph % (Auto) [place] % (Auto) Eos % (Auto) Baso % (Auto) Lymph # (Auto) [place] # (Auto) Eos # (Auto) Baso # (Auto) Abs Immat Gran (auto) Absolute Neuts (auto) Absolute Nucleated RBC Total Counted Neutrophils % (Manual) Band Neutrophils % Lymphocytes % (Manual) Monocytes % (Manual) Eosinophils % (Manual) Basophils % (Manual) Nucleated RBC % Abs Neuts (Manual) Abs Lymphs (Manual) Abs Monocytes (Manual) Absolute Eos (Manual) Abs Basophils (Manual) Hypersegmented Neuts Platelet Estimate Anisocytosis Schistocytes PT INR APTT Puncture Site ABG pH ABG pCO2 ABG pO2 ABG PO2/FiO2 Ratio ABG HCO3 ABG O2 Saturation ABG O2 Content ABG Base Excess A-a Gradient Oxyhemoglobin Total Hemoglobin O2 Delivery Device O2 Liters/Min Minute Volume Vent Rate Vent Mode FiO2 Tidal Volume PEEP Peak Inspir Pressure Pressure Support Sodium Potassium Chloride 119 H Carbon Dioxide 25 25 Anion Gap 8 7 BUN 52 H Creatinine Estim Creat Clear Calc Estimated GFR Glucose Lactic Acid Calcium Phosphorus Magnesium Total Bilirubin Direct Bilirubin GGT AST ALT Alkaline Phosphatase Total Protein Albumin PTH Related Protein Stl Occult Blood (IFOB) Vancomycin Trough CMV Qnt PCR log IU/mL Blood Type Antibody Screen Crossmatch 09/13/24 09/13/24 09/13/24 05:59 05:59 05:59 WBC RBC Hgb Hct MCV MCH MCHC RDW Plt Count MPV Immature Gran % (Auto) Neut % (Auto) Lymph % (Auto) [place] % (Auto) Eos % (Auto) Baso % (Auto) Lymph # (Auto) [place] # (Auto) Eos # (Auto) Baso # (Auto) Abs Immat Gran (auto) Absolute Neuts (auto) Absolute Nucleated RBC Total Counted Neutrophils % (Manual) Band Neutrophils % Lymphocytes % (Manual) Monocytes % (Manual) Eosinophils % (Manual) Basophils % (Manual) Nucleated RBC % Abs Neuts (Manual) Abs Lymphs (Manual) Abs Monocytes (Manual) Absolute Eos (Manual) Abs Basophils (Manual) Hypersegmented Neuts Platelet Estimate Anisocytosis Schistocytes PT INR APTT Puncture Site ABG pH ABG pCO2 ABG pO2 ABG PO2/FiO2 Ratio ABG HCO3 ABG O2 Saturation ABG O2 Content ABG Base Excess A-a Gradient Oxyhemoglobin Total Hemoglobin O2 Delivery Device O2 Liters/Min Minute Volume Vent Rate Vent Mode FiO2 Tidal Volume PEEP Peak Inspir Pressure Pressure Support Sodium Potassium Chloride Carbon Dioxide Anion Gap BUN 51 H Creatinine 0.96 0.90 Estim Creat Clear Calc 38 41 Estimated GFR 58 L Glucose Lactic Acid Calcium Phosphorus Magnesium Total Bilirubin Direct Bilirubin GGT AST ALT Alkaline Phosphatase Total Protein Albumin PTH Related Protein Stl Occult Blood (IFOB) Vancomycin Trough CMV Qnt PCR log IU/mL Blood Type Antibody Screen Crossmatch 09/13/24 09/13/24 09/13/24 05:59 05:59 05:59 WBC RBC Hgb Hct MCV MCH MCHC RDW Plt Count MPV Immature Gran % (Auto) Neut % (Auto) Lymph % (Auto) [place] % (Auto) Eos % (Auto) Baso % (Auto) Lymph # (Auto) [place] # (Auto) Eos # (Auto) Baso # (Auto) Abs Immat Gran (auto) Absolute Neuts (auto) Absolute Nucleated RBC Total Counted Neutrophils % (Manual) Band Neutrophils % Lymphocytes % (Manual) Monocytes % (Manual) Eosinophils % (Manual) Basophils % (Manual) Nucleated RBC % Abs Neuts (Manual) Abs Lymphs (Manual) Abs Monocytes (Manual) Absolute Eos (Manual) Abs Basophils (Manual) Hypersegmented Neuts Platelet Estimate Anisocytosis Schistocytes PT INR APTT Puncture Site ABG pH ABG pCO2 ABG pO2 ABG PO2/FiO2 Ratio ABG HCO3 ABG O2 Saturation ABG O2 Content ABG Base Excess A-a Gradient Oxyhemoglobin Total Hemoglobin O2 Delivery Device O2 Liters/Min Minute Volume Vent Rate Vent Mode FiO2 Tidal Volume PEEP Peak Inspir Pressure Pressure Support Sodium Potassium Chloride Carbon Dioxide Anion Gap BUN Creatinine Estim Creat Clear Calc Estimated GFR > 60 Glucose 107 108 Lactic Acid 1.1 Calcium 8.5 8.4 Phosphorus 3.9 Magnesium Total Bilirubin Direct Bilirubin GGT AST ALT Alkaline Phosphatase Total Protein Albumin PTH Related Protein Stl Occult Blood (IFOB) Vancomycin Trough CMV Qnt PCR log IU/mL Blood Type Antibody Screen Crossmatch 09/13/24 09/13/24 09/13/24 05:59 05:59 05:59 WBC RBC Hgb Hct MCV MCH MCHC RDW Plt Count MPV Immature Gran % (Auto) Neut % (Auto) Lymph % (Auto) [place] % (Auto) Eos % (Auto) Baso % (Auto) Lymph # (Auto) [place] # (Auto) Eos # (Auto) Baso # (Auto) Abs Immat Gran (auto) Absolute Neuts (auto) Absolute Nucleated RBC Total Counted Neutrophils % (Manual) Band Neutrophils % Lymphocytes % (Manual) Monocytes % (Manual) Eosinophils % (Manual) Basophils % (Manual) Nucleated RBC % Abs Neuts (Manual) Abs Lymphs (Manual) Abs Monocytes (Manual) Absolute Eos (Manual) Abs Basophils (Manual) Hypersegmented Neuts Platelet Estimate Anisocytosis Schistocytes PT INR APTT Puncture Site ABG pH ABG pCO2 ABG pO2 ABG PO2/FiO2 Ratio ABG HCO3 ABG O2 Saturation ABG O2 Content ABG Base Excess A-a Gradient Oxyhemoglobin Total Hemoglobin O2 Delivery Device O2 Liters/Min Minute Volume Vent Rate Vent Mode FiO2 Tidal Volume PEEP Peak Inspir Pressure Pressure Support Sodium Potassium Chloride Carbon Dioxide Anion Gap BUN Creatinine Estim Creat Clear Calc Estimated GFR Glucose Lactic Acid Calcium Phosphorus 3.9 Magnesium 1.9 1.9 Total Bilirubin 0.5 0.5 Direct Bilirubin 0.0 GGT AST 53 H ALT Alkaline Phosphatase Total Protein Albumin PTH Related Protein Stl Occult Blood (IFOB) Vancomycin Trough CMV Qnt PCR log IU/mL Blood Type Antibody Screen Crossmatch 09/13/24 09/13/24 09/13/24 05:59 05:59 05:59 WBC RBC Hgb Hct MCV MCH MCHC RDW Plt Count MPV Immature Gran % (Auto) Neut % (Auto) Lymph % (Auto) [place] % (Auto) Eos % (Auto) Baso % (Auto) Lymph # (Auto) [place] # (Auto) Eos # (Auto) Baso # (Auto) Abs Immat Gran (auto) Absolute Neuts (auto) Absolute Nucleated RBC Total Counted Neutrophils % (Manual) Band Neutrophils % Lymphocytes % (Manual) Monocytes % (Manual) Eosinophils % (Manual) Basophils % (Manual) Nucleated RBC % Abs Neuts (Manual) Abs Lymphs (Manual) Abs Monocytes (Manual) Absolute Eos (Manual) Abs Basophils (Manual) Hypersegmented Neuts Platelet Estimate Anisocytosis Schistocytes PT INR APTT Puncture Site ABG pH ABG pCO2 ABG pO2 ABG PO2/FiO2 Ratio ABG HCO3 ABG O2 Saturation ABG O2 Content ABG Base Excess A-a Gradient Oxyhemoglobin Total Hemoglobin O2 Delivery Device O2 Liters/Min Minute Volume Vent Rate Vent Mode FiO2 Tidal Volume PEEP Peak Inspir Pressure Pressure Support Sodium Potassium Chloride Carbon Dioxide Anion Gap BUN Creatinine Estim Creat Clear Calc Estimated GFR Glucose Lactic Acid Calcium Phosphorus Magnesium Total Bilirubin Direct Bilirubin GGT AST 55 H ALT 28 29 Alkaline Phosphatase 94 90 Total Protein 5.6 L Albumin PTH Related Protein Stl Occult Blood (IFOB) Vancomycin Trough CMV Qnt PCR log IU/mL Blood Type Antibody Screen Crossmatch 09/13/24 09/13/24 05:59 05:59 WBC RBC Hgb Hct MCV MCH MCHC RDW Plt Count MPV Immature Gran % (Auto) Neut % (Auto) Lymph % (Auto) [place] % (Auto) Eos % (Auto) Baso % (Auto) Lymph # (Auto) [place] # (Auto) Eos # (Auto) Baso # (Auto) Abs Immat Gran (auto) Absolute Neuts (auto) Absolute Nucleated RBC Total Counted Neutrophils % (Manual) Band Neutrophils % Lymphocytes % (Manual) Monocytes % (Manual) Eosinophils % (Manual) Basophils % (Manual) Nucleated RBC % Abs Neuts (Manual) Abs Lymphs (Manual) Abs Monocytes (Manual) Absolute Eos (Manual) Abs Basophils (Manual) Hypersegmented Neuts Platelet Estimate Anisocytosis Schistocytes PT INR APTT Puncture Site ABG pH ABG pCO2 ABG pO2 ABG PO2/FiO2 Ratio ABG HCO3 ABG O2 Saturation ABG O2 Content ABG Base Excess A-a Gradient Oxyhemoglobin Total Hemoglobin O2 Delivery Device O2 Liters/Min Minute Volume Vent Rate Vent Mode FiO2 Tidal Volume PEEP Peak Inspir Pressure Pressure Support Sodium Potassium Chloride Carbon Dioxide Anion Gap BUN Creatinine Estim Creat Clear Calc Estimated GFR Glucose Lactic Acid Calcium Phosphorus Magnesium Total Bilirubin Direct Bilirubin GGT AST ALT Alkaline Phosphatase Total Protein 5.7 L Albumin 2.8 L 2.8 L PTH Related Protein Stl Occult Blood (IFOB) Vancomycin Trough 21.5 H CMV Qnt PCR log IU/mL Blood Type Antibody Screen Crossmatch
[2024-09-13] MEDS: METOPROLOL TARTRATE INJ 5 MG/5 ML VIAL IV PUSH (20:17)
[2024-09-14] MEDS: LORazepam INJ (*CRX) 2 MG/ML VIAL IV PUSH ×2 (04:42→10:19)
[2024-09-14] MEDS: CENTRAL LINE FLUSH 10 ML IV PUSH ×3 (04:43→22:13)
[2024-09-14 04:48] VITALS: BP 172/68; PULSE 149; RESP 20; TEMP 36.9; O2SAT 93
[2024-09-14] MEDS: MORPHINE SULFATE (*CRX) 2 MG/ML INJ 4 MG IV PUSH ×2 (05:34→15:15)
[2024-09-14 06:15] LABS: GGT 33 U/L (3-65)
[2024-09-14 08:02] VITALS: BP 146/68; PULSE 139; RESP 20; TEMP 37.2; O2SAT 100
[2024-09-14 09:41] VITALS: PULSE 146
[2024-09-14] MEDS: METOPROLOL TARTRATE INJ 5 MG/5 ML VIAL IV PUSH (09:41)
[2024-09-14 09:45] VITALS: PULSE 146; RESP 20; O2SAT 100
[2024-09-14] MEDS: MINERAL OIL/WHITE PETROLATUM OINTMENT 1 APPLIC EACH EYE ×2 (09:45→20:00)
--- NOTE | 2024-09-14 12:36 | P.PNIM_ITS ---
Progress Note: A&P Assessment and Plan (1) Encephalopathy: Code(s): G93.40 - Encephalopathy, unspecified Status: Acute Assessment and Plan: Patient was off sedation for more than 72 hours with minimal improvement in her mental status CT scan of the brain 09/09 showing large acute bilateral occipital lobe infarcts. Multifocal bilateral cerebellar infarcts. Focal bilateral thalamic acute infarcts. Family meeting and they decided to move patient toward comfort measures. Patient was extubated and comfort measures instituted. Consider starting a morphine drip. Left message with son. (2) Acute respiratory failure: Code(s): J96.00 - Acute respiratory failure, unspecified whether with hypoxia or hypercapnia Status: Acute Assessment and Plan: Acute respiratory failure and sepsis secondary to bilateral Pseudomonas pneumonia in an immunocompromised patient who was on methotrexate and hydroxychloroquine. -ARDS physiology -08/30: Intubated for tachypnea, tachycardia, respiratory distress 08/31: bronchoscopy which did not show any LR hemorrhage or tracheobronchitis 08/31: BAL culture is growing Pseudomonas which is pansensitive. Also Milagros glabrata -08/29: Blood culture negative -08/20: sputum culture negative -09/04: Repeat blood cultures are negative PCR for influenza RSV and COVID was negative Urine Legionella negative and pneumococcal antigen negative Negative Mycoplasma IgM Patient on low-dose hydrocortisone as patient has been on chronic steroid use at home -09/04: Patient placed in prone position due to increased oxygen requirements secondary to ARDS and Pseudomonas pneumonia. Patient was also paralyzed with rocuronium and started on Nimbex infusion for ventilator synchrony 09/05: prone position, ABGs reviewed, ventilator adjusted. Patient will be placed in supine position, off Nimbex infusion 09/06: Patient was placed in supine position yesterday and remains in supine position this morning. Currently on 45% FiO2 and peep of 12 with good O2 sats. I have asked the bedside RN to start weaning sedation, start Precedex infusion if needed 09/06: . Given that patient's WBC count is elevated will switch cefepime to meropenem (09/06). Elevated WBC count could also be related to steroids 09/07: Continue meropenem and Levaquin, WBC count trending down, continue to monitor. Chest x-ray also improving 09/08: WBC count remains elevated, add vancomycin. Weaned PEEP to 8 and FiO2 to 35% 06/29: Place patient on pressure support ventilation 12/16, tolerated for about 4 hours after which she got tachypneic tachycardic was switched to CMV mode of ventilation. 09/10: Continue meropenem, and, micafungin 09/13 DC vancomycin and Levaquin Off all abx (3) Gastroesophageal reflux disease: Qualifiers: Esophagitis presence: esophagitis presence not specified Qualified Code(s): K21.9 - Gastro-esophageal reflux disease without esophagitis Code(s): K21.9 - Gastro-esophageal reflux disease without esophagitis Status: Acute Assessment and Plan: PPI q.12 hours but now stopped (4) FRANK (acute kidney injury): Code(s): N17.9 - Acute kidney failure, unspecified Status: Acute Assessment and Plan: Patient presented with elevated creatinine which was likely secondary to sepsis. Creatinine improved with IV fluids Cut down on further IV fluids and patient was given IV fluids Urine output improved. Creatinine in normal range maintain map above 65 mmHg Monitor urine output electrolytes and creatinine Patient has received Lasix, Bumex, Diuril [place] catheter for accurate I&Os Increased BUN and hypercalcemia -discussed with Nephrology, continue diuresis -09/07: hypercalcemia: Received calcitonin and pamidronate along with diuretic. Effect of pamidronate takes place within 72 hours, Calcium levels improved and normalized No further testing planned (5) Sepsis: Qualifiers: Sepsis acute organ dysfunction status: with acute organ dysfunction Sepsis type: sepsis due to unspecified organism Severe sepsis acute organ dysfunction type: encephalopathy Severe sepsis shock status: without septic shock Qualified Code(s): A41.9 - Sepsis, unspecified organism; R65.20 - Severe sepsis without septic shock; G93.41 - Metabolic encephalopathy Code(s): A41.9 - Sepsis, unspecified organism Status: Acute Assessment and Plan: See above (6) Immunosuppressed status: Code(s): D89.9 - Disorder involving the immune mechanism, unspecified Status: Acute Assessment and Plan: Patient was on steroids and immunosuppressants at home (7) Rheumatoid arthritis: Code(s): M06.9 - Rheumatoid arthritis, unspecified Status: Acute Assessment and Plan: Holding methotrexate and hydroxychloroquine Comfort measures (8) Pneumonia: Qualifiers: Laterality: bilateral Lung location: unspecified part of lung Pneumon ia type: due to unspecified organism Qualified Code(s): J18.9 - Pneumonia, unspecified organism Code(s): J18.9 - Pneumonia, unspecified organism Status: Acute Assessment and Plan: See above (9) Urinary tract infection: Qualifiers: Hematuria presence: with hematuria Urinary tract infection type: site unspecified Qualified Code(s): N39.0 - Urinary tract infection, site not specified; R31.9 - Hematuria, unspecified Code(s): N39.0 - Urinary tract infection, site not specified Status: Acute Assessment and Plan: UA suggestive of UTI 08/29: Urine cultures - negative UTI ruled out (10) Herpes labialis: Code(s): B00.1 - Herpesviral vesicular dermatitis Status: Acute Assessment and Plan: Received acyclovir through tube earlier in the course (11) Ileus: Code(s): K56.7 - Ileus, unspecified Status: Acute Assessment and Plan: Bowel sounds absent. Tube feeds on hold. Continue Reglan Continue tube feeds at 20 mL/hour TF are off now (12) Peripheral ischemia: Code(s): I99.8 - Other disorder of circulatory system Status: Acute Assessment and Plan: Patient has developed discoloration/gangrene of all 10 fingers. likely systemic presentation suggest against vascular clot but more like DIC or septic emboli from pseudomonal infection Radial pulses are dopplerable Blood pressure are on the higher side Monitor maintain mean arterial pressure above 65 mmHg Discoloration on her fingers have improved but areas of necrosis remain. She also has blistering noted on some of the fingers likely from edema, continue to monitor Comfort measures now (13) Swelling of both upper extremities: Code(s): M79.89 - Other specified soft tissue disorders Status: Acute Assessment and Plan: Likely secondary to edema as it is bilateral 09/03: Bilateral upper extremity venous Doppler showed extensive deep and superficial venous thrombosis throughout the bilateral upper extremities Lovenox IV q.12 hours but now held (14) Anemia: Qualifiers: Anemia type: unspecified type Qualified Code(s): D64.9 - Anemia, unspecified Code(s): D64.9 - Anemia, unspecified Status: Acute Assessment and Plan: 09/08: Hemoglobin 7.0, will transfuse 1 unit of packed RBC Hemoglobin remains stable, continue to monitor, transfuse if hemoglobin < 7.0 09/02: Patient also received 1 unit of packed RBCs for hemoglobin of 6.9 09/12 patient was given 1 unit of PRBC last night 09/13 patient again Doppler hemoglobin. As per nursing staff the residual was dark. I will hold Lovenox. I will discuss with the family depending on goals of care will consult GI. Continue PPI q.12 hours. Treatment stopped (15) Electrolyte imbalance: Code(s): E87.8 - Other disorders of electrolyte and fluid balance, not elsewhere classified Status: Acute Assessment and Plan: Comfort (16) Tachycardia: Code(s): R00.0 - Tachycardia, unspecified Status: Acute Assessment and Plan: Significantly improved with Precedex infusion. Continue prn metoprolol for comfort Plan Code Status -Patient is DNR with plan for palliative care Subjective Date/time seen: 09/14/24 12:36 Interval history: 68yo female with rheumatoid arthritis, Crohn's disease, GERD with history of ulcers, osteoporosis on chronic immunosuppressive therapy who presented to the ER via EMS due to altered mental status. Patient nonverbal. no family in the room Review of Systems Review of Systems: ROS unobtainable: Yes unobtainable due to mental status Exam Narrative: AF 98.9 146/68 146 20 100% MV Gen - chronically ill appearing female Neck - right IJ TLC secured Chest - Coarse BS CV - tachycardic Abd - Soft, Positive BS - [place] secured draining clear yellow urine. FCS secured Ext - diffuse UE edema. Heel protectors in place Neuro - arouses Skin - multiple finger tips are necrotic. small quarter-sized sacral wound with dark eschar Objective Data Vital Signs Vital Signs: Vital Signs - 24 hr 09/13/24 13:30 09/13/24 13:37 09/13/24 16:00 Temperature Pulse Rate 101 H 100 129 H Respiratory Rate 31 H 31 H 30 H Blood Pressure 155/91 H Pulse Oximetry 100 Oxygen Delivery Oxygen Flow Rate Fraction of Inspired Oxygen 09/13/24 20:13 09/13/24 20:17 09/13/24 20:43 Temperature 98.5 F Pulse Rate 153 H 152 H Respiratory Rate 20 Blood Pressure 161/100 H Pulse Oximetry 95 95 Oxygen Delivery Nasal Cannula Oxygen Flow Rate 2 Fraction of Inspired Oxygen 28 09/14/24 04:48 09/14/24 07:53 09/14/24 08:02 Temperature 98.5 F 98.9 F Pulse Rate 149 H 139 H Respiratory Rate 20 20 Blood Pressure 172/68 H 146/68 H Pulse Oximetry 93 100 Oxygen Delivery Room Air Oxygen Flow Rate Fraction of Inspired Oxygen 09/14/24 09:41 09/14/24 09:45 Temperature Pulse Rate 146 H 146 H Respiratory Rate 20 Blood Pressure Pulse Oximetry 100 Oxygen Delivery Room Air Oxygen Flow Rate Fraction of Inspired Oxygen 28 Intake/Output Intake/Output: Intake & Output 09/11/24 09/12/24 09/13/24 09/14/24 23:59 23:59 23:59 23:59 Intake Total 1142.1 2017.0 2320.3 Output Total 2600 642 425 9004 Balance -1457.9 1147.0 1720.3 -1150 Meds/Results Medications: Active Medications Generic Name Dose Route Start Last Admin Trade Name Freq PRN Reason Stop Dose Admin Acetaminophen 650 mg 08/29/24 18:17 09/11/24 08:57 Acetaminophen 325 Mg Tablet PO 650 mg Q4H PRN Administration Mild Pain (1-3) or Fever Acetaminophen 650 mg 08/30/24 00:43 08/30/24 06:56 Acetaminophen 650 Mg Suppository RECTAL 650 mg Q6H PRN Administration Mild Pain (1-3) or Fever Atropine Sulfate 1 - 2 drop 09/13/24 13:02 09/14/24 09:43 Atropine Sulfate 1% Ophth Soln 5 Ml Bottle SUBLINGUAL 2 drop Q4H PRN Administration Secretions Dextrose 12.5 gm 08/29/24 20:42 08/31/24 20:55 Dextrose 50% 25 Gm/50 Ml Syringe IV PUSH 12.5 gm PRN PRN Administration Hypoglycemia Protocol Glucagon 1 mg 08/29/24 20:42 Glucagon For Inj 1 Mg Vial IM PRN PRN Hypoglycemia Protocol Glucose 15 gm 08/29/24 20:42 Glucose Oral Gel 15 Gm Of Glucse In 37.5 Gm Tube PO PRN PRN Hypoglycemia Protocol Hydralazine HCl 10 mg 09/08/24 15:05 09/09/24 00:43 Hydralazine Hcl 20 Mg/Ml Vial IV PUSH 10 mg Q4HR PRN Administration Blood Pressure - High Dextrose 1,000 mls @ 100 mls/hr 08/29/24 20:42 Dextrose 5% 1,000 Ml IVPB PRN PRN Hypoglycemia Protocol Lorazepam 2 mg 09/13/24 13:02 09/14/24 10:19 Lorazepam Inj (*Crx) 2 Mg/Ml Vial IV PUSH 2 mg Q1H PRN Administration Anxiety/Comfort Metoprolol Tartrate 5 mg 09/08/24 11:07 09/14/24 09:41 Metoprolol Tartrate Inj 5 Mg/5 Ml Vial IV PUSH 5 mg Q6H PRN Administration HR>130 Morphine Sulfate 4 mg 09/13/24 13:02 09/14/24 05:34 Morphine Sulfate (*Crx) 2 Mg/Ml Inj IV PUSH 4 mg Q30M PRN Administration COMFORT Multi-Ingred Cream/Lotion/Oil/Oint 1 applic 08/30/24 10:20 09/14/24 09:45 Mineral Oil/White Petrolatum Ointment EACH EYE 1 applic Q12HR RHYS Administration Sodium Chloride 10 ml 08/30/24 12:17 Central Line Flush IV PUSH PRN PRN with TPN bag changes Sodium Chloride 20 ml 08/30/24 12:17 09/10/24 05:46 Central Line Flush IV PUSH 20 ml PRN PRN Administration after blood draws Sodium Chloride 10 ml 09/04/24 22:00 09/14/24 04:43 Central Line Flush IV PUSH 10 ml Q8HR RHYS Administration Sodium Chloride 20 ml 09/04/24 12:30 09/09/24 04:45 Central Line Flush IV PUSH 20 ml PRN PRN Administration after blood draws Radiology Results: ITS Impressions Abdomen X-Ray 08/30/24 11:02 IMPRESSION: Bilateral pneumonia. Differential include pulmonary edema. Venous Doppler Study 09/03/24 10:50 IMPRESSION: 1. Extensive deep and superficial venous thrombosis throughout the bilateral upper lungs as detailed above. Findings were discussed with Jacinto Victor, the nurse caring for the patient, at 10:59 AM. ADDENDUM: 09/03/24 1400 CORRECTION: There is a dictation error in the impression section. With the correction capitalized this should read- Extensive deep and superficial venous thrombosis throughout the bilateral upper LIMBS as detailed above. Head CT 09/09/24 15:44 IMPRESSION: Large acute bilateral occipital lobe infarcts. Multifocal bilateral cerebellar infarcts. Focal bilateral thalamic acute infarcts. Results reported telephonically to Halle Browning RN by Dr. Campos at 3:48 PM on 09/09/2024. Chest/Abdomen/Pelvis CT 09/09/24 15:56 IMPRESSION: Endotracheal tube terminates 2.5 cm above the sun. Right IJ central line terminates in the right atrium. CT findings suggestive of right lower lobe pneumonia. Additional patchy bilateral groundglass and reticular opacities may represent edema or multifocal infection, to include atypical variants. Small bilateral pleural effusions. Asymmetric chest wall edema, greater on the right. Correlate for signs of infection. Subacute pelvic and sacral fractures. Chest X-Ray 09/13/24 06:49 Impression: Right basilar pulmonary edema versus pneumonia. Small right pleural effusion. Support tubes, as above. Labs Labs: Laboratory Results - last 24 hr 08/31/24 09/13/24 08:39 05:59 GGT 33 CMV Qnt PCR log IU/mL TNP
--- NOTE | 2024-09-14 13:06 | PCDIET ---
Pt is on comfort care. Tube feeding has been d/c'd. No diet order. No further nutrition recommendations or needs.
[2024-09-14 14:00] VITALS: PULSE 140; RESP 23; TEMP 37.1; O2SAT 100
[2024-09-14] MEDS: MORPHINE 50 MG/NS 100ML (*CRX) 50 MG/100 ML BAG IV CONT (16:11)
[2024-09-14] MEDS: LORazepam INJ (*CRX) 2 MG/ML VIAL 1 MG IV PUSH ×2 (16:11→19:57)
[2024-09-14 20:00] VITALS: BP 155/78; PULSE 143; RESP 28; TEMP 37.2; O2SAT 100
[2024-09-15] MEDS: LORazepam INJ (*CRX) 2 MG/ML VIAL 1 MG IV PUSH ×6 (00:08→21:04)
[2024-09-15] MEDS: CENTRAL LINE FLUSH 10 ML IV PUSH ×3 (04:22→21:05)
[2024-09-15 04:26] VITALS: PULSE 142
[2024-09-15] MEDS: METOPROLOL TARTRATE INJ 5 MG/5 ML VIAL IV PUSH (04:26)
[2024-09-15 04:38] VITALS: BP 127/65; PULSE 142; RESP 26; TEMP 37.4; O2SAT 97
[2024-09-15 08:55] VITALS: RESP 26; O2SAT 97
[2024-09-15] MEDS: MINERAL OIL/WHITE PETROLATUM OINTMENT 1 APPLIC EACH EYE ×2 (08:55→21:04)
--- NOTE | 2024-09-15 11:17 | PM.IMPN ---
Progress Note: A&P Assessment and Plan (1) Encephalopathy: Code(s): G93.40 - Encephalopathy, unspecified Status: Acute Assessment and Plan: Patient was off sedation for more than 72 hours with minimal improvement in her mental status CT scan of the brain 09/09 showing large acute bilateral occipital lobe infarcts. Multifocal bilateral cerebellar infarcts. Focal bilateral thalamic acute infarcts. Family meeting and they decided to move patient toward comfort measures. Patient was extubated and comfort measures instituted. Spoke with family and they were agreeable for a morphine drip that was started 09/14. They also wanted Ativan scheduled which was done on 09/14. Still tachycardic but family does not want her medications adjusted at this time (2) Acute respiratory failure: Code(s): J96.00 - Acute respiratory failure, unspecified whether with hypoxia or hypercapnia Status: Acute Assessment and Plan: Acute respiratory failure and sepsis secondary to bilateral Pseudomonas pneumonia in an immunocompromised patient who was on methotrexate and hydroxychloroquine. -ARDS physiology -08/30: Intubated for tachypnea, tachycardia, respiratory distress 08/31: bronchoscopy which did not show any LR hemorrhage or tracheobronchitis 08/31: BAL culture is growing Pseudomonas which is pansensitive. Also Milagros glabrata -08/29: Blood culture negative -08/20: sputum culture negative -09/04: Repeat blood cultures are negative PCR for influenza RSV and COVID was negative Urine Legionella negative and pneumococcal antigen negative Negative Mycoplasma IgM Patient on low-dose hydrocortisone as patient has been on chronic steroid use at home -09/04: Patient placed in prone position due to increased oxygen requirements secondary to ARDS and Pseudomonas pneumonia. Patient was also paralyzed with rocuronium and started on Nimbex infusion for ventilator synchrony 09/05: prone position, ABGs reviewed, ventilator adjusted. Patient will be placed in supine position, off Nimbex infusion 09/06: Patient was placed in supine position yesterday and remains in supine position this morning. Currently on 45% FiO2 and peep of 12 with good O2 sats. I have asked the bedside RN to start weaning sedation, start Precedex infusion if needed 09/06: . Given that patient's WBC count is elevated will switch cefepime to meropenem (09/06). Elevated WBC count could also be related to steroids 09/07: Continue meropenem and Levaquin, WBC count trending down, continue to monitor. Chest x-ray also improving 09/08: WBC count remains elevated, add vancomycin. Weaned PEEP to 8 and FiO2 to 35% 09/09: Place patient on pressure support ventilation 12/16, tolerated for about 4 hours after which she got tachypneic tachycardic was switched to CMV mode of ventilation. 09/10: Continue meropenem, and, micafungin 09/13 DC all medications and moved to comfort care (3) Gastroesophageal reflux disease: Qualifiers: Esophagitis presence: esophagitis presence not specified Qualified Code(s): K21.9 - Gastro-esophageal reflux disease without esophagitis Code(s): K21.9 - Gastro-esophageal reflux disease without esophagitis Status: Acute Assessment and Plan: PPI q.12 hours but now stopped (4) FRANK (acute kidney injury): Code(s): N17.9 - Acute kidney failure, unspecified Status: Acute Assessment and Plan: Patient presented with elevated creatinine which was likely secondary to sepsis. Creatinine improved with IV fluids Cut down on further IV fluids and patient was given IV fluids Urine output improved. Creatinine in normal range maintain map above 65 mmHg Monitor urine output electrolytes and creatinine Patient has received Lasix, Bumex, Diuril Obregon catheter for accurate I&Os Increased BUN and hypercalcemia -discussed with Nephrology, continue diuresis -09/07: hypercalcemia: Received calcitonin and pamidronate along with diuretic. Effect of pamidronate takes place within 72 hours, Calcium levels improved and normalized No further testing planned (5) Sepsis: Qualifiers: Sepsis acute organ dysfunction status: with acute organ dysfunction Sepsis type: sepsis due to unspecified organism Severe sepsis acute organ dysfunction type: encephalopathy Severe sepsis shock status: without septic shock Qualified Code(s): A41.9 - Sepsis, unspecified organism; R65.20 - Severe sepsis without septic shock; G93.41 - Metabolic encephalopathy Code(s): A41.9 - Sepsis, unspecified organism Status: Acute Assessment and Plan: See above (6) Immunosuppressed status: Code(s): D89.9 - Disorder involving the immune mechanism, unspecified Status: Acute Assessment and Plan: Patient was on steroids and immunosuppressants at home (7) Rheumatoid arthritis: Code(s): M06.9 - Rheumatoid arthritis, unspecified Status: Acute Assessment and Plan: Holding methotrexate and hydroxychloroquine Comfort measures (8) Pneumonia: Qualifiers: Laterality: bilateral Lung location: unspecified part of lung Pneumonia type: due to unspecified organism Qualified Code(s): J18.9 - Pneumonia, unspecified organism Code(s): J18.9 - Pneumonia, unspecified organism Status: Acute Assessment and Plan: See above (9) Urinary tract infection: Qualifiers: Hematuria presence: with hematuria Urinary tract infection type: site unspecified Qualified Code(s): N39.0 - Urinary tract infection, site not specified; R31.9 - Hematuria, unspecified Code(s): N39.0 - Urinary tract infection, site not specified Status: Acute Assessment and Plan: UA suggestive of UTI 08/29: Urine cultures - negative UTI ruled out (10) Herpes labialis: Code(s): B00.1 - Herpesviral vesicular dermatitis Status: Acute Assessment and Plan: Received acyclovir through tube earlier in the course (11) Ileus: Code(s): K56.7 - Ileus, unspecified Status: Acute Assessment and Plan: Bowel sounds absent. Tube feeds on hold. Continue Reglan Continue tube feeds at 20 mL/hour TF are off now (12) Peripheral ischemia: Code(s): I99.8 - Other disorder of circulatory system Status: Acute Assessment and Plan: Patient has developed discoloration/gangrene of all 10 fingers. likely systemic presentation suggest against vascular clot but more like DIC or septic emboli from pseudomonal infection Radial pulses are dopplerable Blood pressure are on the higher side Monitor maintain mean arterial pressure above 65 mmHg Discoloration on her fingers have improved but areas of necrosis remain. She also has blistering noted on some of the fingers likely from edema, continue to monitor Comfort measures now (13) Swelling of both upper extremities: Code(s): M79.89 - Other specified soft tissue disorders Status: Acute Assessment and Plan: Likely secondary to edema as it is bilateral 09/03: Bilateral upper extremity venous Doppler showed extensive deep and superficial venous thrombosis throughout the bilateral upper extremities Lovenox IV q.12 hours but now held (14) Anemia: Qualifiers: Anemia type: unspecified type Qualified Code(s): D64.9 - Anemia, unspecified Code(s): D64.9 - Anemia, unspecified Status: Acute Assessment and Plan: 09/08: Hemoglobin 7.0, will transfuse 1 unit of packed RBC Hemoglobin remains stable, continue to monitor, transfuse if hemoglobin < 7.0 09/02: Patient also received 1 unit of packed RBCs for hemoglobin of 6.9 09/12 patient was given 1 unit of PRBC last night 09/13 patient again Doppler hemoglobin. As per nursing staff the residual was dark. I will hold Lovenox. I will discuss with the family depending on goals of care will consult GI. Continue PPI q.12 hours. Treatment stopped (15) Electrolyte imbalance: Code(s): E87.8 - Other disorders of electrolyte and fluid balance, not elsewhere classified Status: Acute Assessment and Plan: Comfort (16) Tachycardia: Code(s): R00.0 - Tachycardia, unspecified Status: Acute Assessment and Plan: Significantly improved with Precedex infusion. Continue prn metoprolol for comfort Plan Code Status -Patient is DNR with plan for palliative care Subjective Date/time seen: 09/15/24 11:17 Interval history: 68yo female with rheumatoid arthritis, Crohn's disease, GERD with history of ulcers, osteoporosis on chronic immunosuppressive therapy who presented to the ER via EMS due to altered mental status. Patient nonverbal. Family at bedside Review of Systems Review of Systems: ROS unobtainable: Yes unobtainable due to mental status Exam Narrative: AF 99.3 127/65 142 26 97% 2L Gen - chronically ill appearing female Neck - right IJ TLC secured Chest - Coarse BS CV - tachycardic Abd - Soft, Positive BS - Obregon secured draining clear yellow urine Ext - diffuse UE edema. Heel protectors in place. trace LE edema Neuro - unresponsive Skin - multiple finger tips are necrotic Objective Data Vital Signs Vital Signs: Vital Signs - 24 hr 09/14/24 14:00 09/14/24 20:00 09/14/24 20:00 Temperature 98.7 F 98.9 F Pulse Rate 140 H 143 H Respiratory Rate 23 H 28 H Blood Pressure 155/78 H Pulse Oximetry 100 100 Oxygen Delivery Nasal Cannula Oxygen Flow Rate 2 Fraction of Inspired Oxygen 28 09/15/24 04:26 09/15/24 04:38 09/15/24 08:55 Temperature 99.3 F Pulse Rate 142 H 142 H Respiratory Rate 26 H 26 H Blood Pressure 127/65 Pulse Oximetry 97 97 Oxygen Delivery Nasal Cannula Oxygen Flow Rate 2 Fraction of Inspired Oxygen Intake/Output Intake/Output: Intake & Output 07/02/25 07/03/25 07/04/25 07/05/25 23:59 23:59 23:59 23:59 Intake Total 2017.0 2320.3 0 Output Total 047 903 0797 650 Balance 1147.0 1720.3 -2300 -650 Meds/Results Medications: Active Medications Generic Name Dose Route Start Last Admin Trade Name Freq PRN Reason Stop Dose Admin Acetaminophen 650 mg 08/29/24 18:17 09/11/24 08:57 Acetaminophen 325 Mg Tablet PO 650 mg Q4H PRN Administration Mild Pain (1-3) or Fever Acetaminophen 650 mg 08/30/24 00:43 08/30/24 06:56 Acetaminophen 650 Mg Suppository RECTAL 650 mg Q6H PRN Administration Mild Pain (1-3) or Fever Atropine Sulfate 1 - 2 drop 09/13/24 13:02 09/15/24 04:35 Atropine Sulfate 1% Ophth Soln 5 Ml Bottle SUBLINGUAL 2 drop Q4H PRN Administration Secretions Dextrose 12.5 gm 08/29/24 20:42 08/31/24 20:55 Dextrose 50% 25 Gm/50 Ml Syringe IV PUSH 12.5 gm PRN PRN Administration Hypoglycemia Protocol Glucagon 1 mg 08/29/24 20:42 Glucagon For Inj 1 Mg Vial IM PRN PRN Hypoglycemia Protocol Glucose 15 gm 08/29/24 20:42 Glucose Oral Gel 15 Gm Of Glucse In 37.5 Gm Tube PO PRN PRN Hypoglycemia Protocol Hydralazine HCl 10 mg 09/08/24 15:05 09/09/24 00:43 Hydralazine Hcl 20 Mg/Ml Vial IV PUSH 10 mg Q4HR PRN Administration Blood Pressure - High Dextrose 1,000 mls @ 100 mls/hr 08/29/24 20:42 Dextrose 5% 1,000 Ml IVPB PRN PRN Hypoglycemia Protocol Morphine Sulfate 50 mg in 100 mls @ 4 mls/hr 09/14/24 15:55 09/14/24 16:11 IV CONT 2 mg/hr .Q24H RHYS 4 mls/hr Administration 2 MG/HR Lorazepam 2 mg 09/13/24 13:02 09/14/24 10:19 Lorazepam Inj (*Crx) 2 Mg/Ml Vial IV PUSH 2 mg Q1H PRN Administration Anxiety/Comfort Lorazepam 1 mg 09/14/24 16:00 09/15/24 08:56 Lorazepam Inj (*Crx) 2 Mg/Ml Vial IV PUSH 1 mg Q4H RHYS Administration Metoprolol Tartrate 5 mg 09/08/24 11:07 09/15/24 04:26 Metoprolol Tartrate Inj 5 Mg/5 Ml Vial IV PUSH 5 mg Q6H PRN Administration HR>130 Morphine Sulfate 4 mg 09/13/24 13:02 09/14/24 15:15 Morphine Sulfate (*Crx) 2 Mg/Ml Inj IV PUSH 4 mg Q30M PRN Administration COMFORT Multi-Ingred Cream/Lotion/Oil/Oint 1 applic 08/30/24 10:20 09/15/24 08:55 Mineral Oil/White Petrolatum Ointment EACH EYE 1 applic Q12HR RHYS Administration Sodium Chloride 10 ml 08/30/24 12:17 Central Line Flush IV PUSH PRN PRN with TPN bag changes Sodium Chloride 20 ml 08/30/24 12:17 09/10/24 05:46 Central Line Flush IV PUSH 20 ml PRN PRN Administration after blood draws Sodium Chloride 10 ml 09/04/24 22:00 09/15/24 04:22 Central Line Flush IV PUSH 10 ml Q8HR RHYS Administration Sodium Chloride 20 ml 09/04/24 12:30 09/09/24 04:45 Central Line Flush IV PUSH 20 ml PRN PRN Administration after blood draws Radiology Results: ITS Impressions Abdomen X-Ray 08/30/24 11:02 IMPRESSION: Bilateral pneumonia. Differential include pulmonary edema. Venous Doppler Study 09/03/24 10:50 IMPRESSION: 1. Extensive deep and superficial venous thrombosis throughout the bilateral upper lungs as detailed above. Findings were discussed with Jacinto Victor, the nurse caring for the patient, at 10:59 AM. ADDENDUM: 09/03/24 1400 CORRECTION: There is a dictation error in the impression section. With the correction capitalized this should read- Extensive deep and superficial venous thrombosis throughout the bilateral upper LIMBS as detailed above. Head CT 09/09/24 15:44 IMPRESSION: Large acute bilateral occipital lobe infarcts. Multifocal bilateral cerebellar infarcts. Focal bilateral thalamic acute infarcts. Results reported telephonically to Halle Browning RN by Dr. Campos at 3:48 PM on 09/09/2024. Chest/Abdomen/Pelvis CT 09/09/24 15:56 IMPRESSION: Endotracheal tube terminates 2.5 cm above the sun. Right IJ central line terminates in the right atrium. CT findings suggestive of right lower lobe pneumonia. Additional patchy bilateral groundglass and reticular opacities may represent edema or multifocal infection, to include atypical variants. Small bilateral pleural effusions. Asymmetric chest wall edema, greater on the right. Correlate for signs of infection. Subacute pelvic and sacral fractures. Chest X-Ray 09/13/24 06:49 Impression: Right basilar pulmonary edema versus pneumonia. Small right pleural effusion. Support tubes, as above.
[2024-09-15] MEDS: MORPHINE 50 MG/NS 100ML (*CRX) 50 MG/100 ML BAG IV CONT (13:33)
[2024-09-15 14:40] VITALS: BP 119/61; PULSE 138; RESP 26; TEMP 36.2; O2SAT 95
[2024-09-15 20:04] VITALS: BP 116/60; PULSE 139; RESP 20; TEMP 38; O2SAT 90
[2024-09-16] VITALS (7 sets, daily range): BP systolic 102–108; BP diastolic 52–58; PULSE 128–135; RESP 18–22; TEMP 36.2–36.9; O2SAT 95–100
[2024-09-16] MEDS: LORazepam INJ (*CRX) 2 MG/ML VIAL 1 MG IV PUSH ×3 (00:21→08:20)
[2024-09-16] MEDS: CENTRAL LINE FLUSH 10 ML IV PUSH ×3 (05:06→21:05)
[2024-09-16] MEDS: MINERAL OIL/WHITE PETROLATUM OINTMENT 1 APPLIC EACH EYE ×2 (08:21→21:05)
--- NOTE | 2024-09-16 12:13 | P.PNIM_ITS ---
Progress Note: A&P Assessment and Plan (1) Encephalopathy: Code(s): G93.40 - Encephalopathy, unspecified Status: Acute Assessment and Plan: Patient was off sedation for more than 72 hours with minimal improvement in her mental status CT scan of the brain 09/09 showing large acute bilateral occipital lobe infarcts. Multifocal bilateral cerebellar infarcts. Focal bilateral thalamic acute infarcts. Family meeting and they decided to move patient toward comfort measures. Patient was extubated and comfort measures instituted. Spoke with family and they were agreeable for a morphine drip that was started 09/14. They also wanted Ativan scheduled which was done on 09/14. 09/15 - Still tachycardic but family did not want her medications adjusted at this time. 09/16 - Patient more tachypenic and still tachycardic. Patient may be in more pain today. Spoke with family and all questions answered. They are agreeable to advance her medications for comfort. (2) Acute respiratory failure: Code(s): J96.00 - Acute respiratory failure, unspecified whether with hypoxia or hypercapnia Status: Acute Assessment and Plan: Acute respiratory failure and sepsis secondary to bilateral Pseudomonas pneumonia in an immunocompromised patient who was on methotrexate and hydr oxychloroquine. -ARDS physiology -08/30: Intubated for tachypnea, tachycardia, respiratory distress 08/31: bronchoscopy which did not show any LR hemorrhage or tracheobronchitis 08/31: BAL culture is growing Pseudomonas which is pansensitive. Also Milagros glabrata -08/29: Blood culture negative -08/20: sputum culture negative -09/04: Repeat blood cultures are negative PCR for influenza RSV and COVID was negative Urine Legionella negative and pneumococcal antigen negative Negative Mycoplasma IgM Patient on low-dose hydrocortisone as patient has been on chronic steroid use at home -09/04: Patient placed in prone position due to increased oxygen requirements secondary to ARDS and Pseudomonas pneumonia. Patient was also paralyzed with rocuronium and started on Nimbex infusion for ventilator synchrony 09/05: prone position, ABGs reviewed, ventilator adjusted. Patient will be placed in supine position, off Nimbex infusion 09/06: Patient was placed in supine position yesterday and remains in supine position this morning. Currently on 45% FiO2 and peep of 12 with good O2 sats. I have asked the bedside RN to start weaning sedation, start Precedex infusion if needed 09/06: . Given that patient's WBC count is elevated will switch cefepime to meropenem (09/06). Elevated WBC count could also be related to steroids 09/07: Continue meropenem and Levaquin, WBC count trending down, continue to monitor. Chest x-ray also improving 09/08: WBC count remains elevated, add vancomycin. Weaned PEEP to 8 and FiO2 to 35% 09/09: Place patient on pressure support ventilation /5, tolerated for about 4 hours after which she got tachypneic tachycardic was switched to CMV mode of ventilation. 09/10: Continue meropenem, and, micafungin 09/13 DC'd all medications and moved to comfort care (3) Gastroesophageal reflux disease: Qualifiers: Esophagitis presence: esophagitis presence not specified Qualified Code(s): K21.9 - Gastro-esophageal reflux disease without esophagitis Code(s): K21.9 - Gastro-esophageal reflux disease without esophagitis Status: Acute Assessment and Plan: PPI q.12 hours but now stopped (4) FRANK (acute kidney injury): Code(s): N17.9 - Acute kidney failure, unspecified Status: Acute Assessment and Plan: Patient presented with elevated creatinine which was likely secondary to sepsis. Creatinine improved with IV fluids Cut down on further IV fluids and patient was given IV fluids Urine output improved. Creatinine in normal range maintain map above 65 mmHg Monitor urine output electrolytes and creatinine Patient has received Lasix, Bumex, Diuril Obregon catheter for accurate I&Os Increased BUN and hypercalcemia -discussed with Nephrology, continue diuresis -09/07: hypercalcemia: Received calcitonin and pamidronate along with diuretic. Effect of pamidronate takes place within 72 hours, Calcium levels improved and normalized No further testing planned (5) Sepsis: Qualifiers: Sepsis acute organ dysfunction status: with acute organ dysfunction Sepsis type: sepsis due to unspecified organism Severe sepsis acute organ dysfunction type: encephalopathy Severe sepsis shock status: without septic shock Qualified Code(s): A41.9 - Sepsis, unspecified organism; R65.20 - Severe sepsis without septic shock; G93.41 - Metabolic encephalopathy Code(s): A41.9 - Sepsis, unspecified organism Status: Acute Assessment and Plan: See above (6) Immunosuppressed status: Code(s): D89.9 - Disorder involving the immune mechanism, unspecified Status: Acute Assessment and Plan: Patient was on steroids and immunosuppressants at home (7) Rheumatoid arthritis: Code(s): M06.9 - Rheumatoid arthritis, unspecified Status: Acute Assessment and Plan: Holding methotrexate and hydroxychloroquine Comfort measures (8) Pneumonia: Qualifiers: Laterality: bilateral Lung location: unspecified part of lung Pneumonia type: due to unspecified organism Qualified Code(s): J18.9 - Pneumonia, unspecified organism Code(s): J18.9 - Pneumonia, unspecified organism Status: Acute Assessment and Plan: See above (9) Urinary tract infection: Qualifiers: Hematuria presence: with hematuria Urinary tract infection type: site unspecified Qualified Code(s): N39.0 - Urinary tract infection, site not specified; R31.9 - Hematuria, unspecified Code(s): N39.0 - Urinary tract infection, site not specified Status: Acute Assessment and Plan: UA suggestive of UTI 08/29: Urine cultures - negative UTI ruled out (10) Herpes labialis: Code(s): B00.1 - Herpesviral vesicular dermatitis Status: Acute Assessment and Plan: Received acyclovir through tube earlier in the course (11) Ileus: Code(s): K56.7 - Ileus, unspecified Status: Acute Assessment and Plan: TF are off now (12) Peripheral ischemia: Code(s): I99.8 - Other disorder of circulatory system Status: Acute Assessment and Plan: Patient has developed discoloration/gangrene of all 10 fingers. likely systemic presentation suggest against vascular clot but more like DIC or septic emboli from pseudomonal infection Radial pulses are dopplerable Blood pressure are on the higher side Monitor maintain mean arterial pressure above 65 mmHg Discoloration on her fingers have improved but areas of necrosis remain. She also has blistering noted on some of the fingers likely from edema, continue to monitor Comfort measures now (13) Swelling of both upper extremities: Code(s): M79.89 - Other specified soft tissue disorders Status: Acute Assessment and Plan: Likely secondary to edema as it is bilateral 09/03: Bilateral upper extremity venous Doppler showed extensive deep and superficial venous thrombosis throughout the bilateral upper extremities Lovenox IV q.12 hours but now held (14) Anemia: Qualifiers: Anemia type: unspecified type Qualified Code(s): D64.9 - Anemia, unspecified Code(s): D64.9 - Anemia, unspecified Status: Acute Assessment and Plan: 09/08: Hemoglobin 7.0, will transfuse 1 unit of packed RBC Hemoglobin remains stable, continue to monitor, transfuse if hemoglobin < 7.0 09/02: Patient also received 1 unit of packed RBCs for hemoglobin of 6.9 09/12 patient was given 1 unit of PRBC last night 09/13 patient again Doppler hemoglobin. As per nursing staff the residual was dark. I will hold Lovenox. I will discuss with the family depending on goals of care will consult GI. Continue PPI q.12 hours. Treatment stopped (15) Electrolyte imbalance: Code(s): E87.8 - Other disorders of electrolyte and fluid balance, not elsewhere classified Status: Acute Assessment and Plan: Comfort (16) Tachycardia: Code(s): R00.0 - Tachycardia, unspecified Status: Acute Assessment and Plan: Significantly improved with Precedex infusion. Continue prn metoprolol for comfort (17) DVT (deep venous thrombosis): Code(s): I82.409 - Acute embolism and thrombosis of unspecified deep veins of unspecified lower extremity Status: Acute Assessment and Plan: Bilateral UE venous Doppler US 09/03 showing extensive deep and superficial venous thrombosis throughout the bilateral upper extremities. (18) CVA (cerebral vascular accident): Code(s): I63.9 - Cerebral infarction, unspecified Status: Acute Assessment and Plan: CT brain showing large acute bilateral occipital lobe infarcts. Multifocal bilateral cerebellar infarcts. Focal bilateral thalamic acute infarcts. Plan Code Status -Patient is DNR with plan for palliative care Subjective Date/time seen: 09/16/24 12:13 Interval history: 68yo female with rheumatoid arthritis, Crohn's disease, GERD with history of ulcers, osteoporosis on chronic immunosuppressive therapy who presented to the [facility] via EMS due to altered mental status. Patients eyes are open but unresponsive and nonverbal. Family at bedside. Review of Systems Review of Systems: ROS unobtainable: Yes unobtainable due to mental status Exam Narrative: Tm 100.4 97.1 108/56 135 22 95% 2L Gen - chronically ill appearing female Neck - right IJ TLC secured Chest - Coarse BS anteriorly; tachypneic CV - tachycardic Abd - Soft - Obregon secured draining clear yellow urine; FCS secured Ext - diffuse UE edema. Heel protectors in place. trace LE edema Neuro - unresponsive Skin - multiple distal fingers are necrotic Objective Data Vital Signs Vital Signs: Vital Signs - 24 hr 09/15/24 14:40 09/15/24 20:00 09/15/24 20:04 Temperature 97.2 F L 100.4 F H Pulse Rate 138 H 139 H Respiratory Rate 26 H 20 Blood Pressure 119/61 116/60 Pulse Oximetry 95 90 Oxygen Delivery Nasal Cannula Oxygen Flow Rate 2 Fraction of Inspired Oxygen 09/16/24 08:20 09/16/24 08:26 09/16/24 10:22 Temperature 97.1 F L Pulse Rate 135 H 135 H Respiratory Rate 22 H 22 H Blood Pressure 108/56 L Pulse Oximetry 95 95 Oxygen Delivery Nasal Cannula Room Air Oxygen Flow Rate 2 Fraction of Inspired Oxygen 21 Intake/Output Intake/Output: Intake & Output 09/13/24 09/14/24 09/15/24 09/16/24 23:59 23:59 23:59 23:59 Intake Total 2320.3 85.5 Output Total 600 2300 1350 150 Balance 1720.3 -2300 -1264.5 -150 Meds/Results Medications: Active Medications Generic Name Dose Route Start Last Admin Trade Name Freq PRN Reason Stop Dose Admin Acetaminophen 650 mg 08/29/24 18:17 09/11/24 08:57 Acetaminophen 325 Mg Tablet PO 650 mg Q4H PRN Administration Mild Pain (1-3) or Fever Acetaminophen 650 mg 08/30/24 00:43 08/30/24 06:56 Acetaminophen 650 Mg Suppository RECTAL 650 mg Q6H PRN Administration Mild Pain (1-3) or Fever Atropine Sulfate 1 - 2 drop 09/13/24 13:02 09/15/24 04:35 Atropine Sulfate 1% Ophth Soln 5 Ml Bottle SUBLINGUAL 2 drop Q4H PRN Administration Secretions Dextrose 12.5 gm 08/29/24 20:42 08/31/24 20:55 Dextrose 50% 25 Gm/50 Ml Syringe IV PUSH 12.5 gm PRN PRN Administration Hypoglycemia Protocol Glucagon 1 mg 08/29/24 20:42 Glucagon For Inj 1 Mg Vial IM PRN PRN Hypoglycemia Protocol Glucose 15 gm 08/29/24 20:42 Glucose Oral Gel 15 Gm Of Glucse In 37.5 Gm Tube PO PRN PRN Hypoglycemia Protocol Hydralazine HCl 10 mg 09/08/24 15:05 09/09/24 00:43 Hydralazine Hcl 20 Mg/Ml Vial IV PUSH 10 mg Q4HR PRN Administration Blood Pressure - High Dextrose 1,000 mls @ 100 mls/hr 08/29/24 20:42 Dextrose 5% 1,000 Ml IVPB PRN PRN Hypoglycemia Protocol Morphine Sulfate 50 mg in 100 mls @ 4 mls/hr 09/14/24 15:55 09/15/24 13:33 IV CONT 2 mg/hr .Q24H RHYS 4 mls/hr Administration 2 MG/HR Lorazepam 2 mg 09/13/24 13:02 09/14/24 10:19 Lorazepam Inj (*Crx) 2 Mg/Ml Vial IV PUSH 2 mg Q1H PRN Administration Anxiety/Comfort Lorazepam 1 mg 09/14/24 16:00 09/16/24 08:20 Lorazepam Inj (*Crx) 2 Mg/Ml Vial IV PUSH 1 mg Q4H RHYS Administration Metoprolol Tartrate 5 mg 09/08/24 11:07 09/15/24 04:26 Metoprolol Tartrate Inj 5 Mg/5 Ml Vial IV PUSH 5 mg Q6H PRN Administration HR>130 Morphine Sulfate 4 mg 09/13/24 13:02 09/14/24 15:15 Morphine Sulfate (*Crx) 2 Mg/Ml Inj IV PUSH 4 mg Q30M PRN Administration COMFORT Multi-Ingred Cream/Lotion/Oil/Oint 1 applic 08/30/24 10:20 09/16/24 08:21 Mineral Oil/White Petrolatum Ointment EACH EYE 1 applic Q12HR RHYS Administration Sodium Chloride 10 ml 08/30/24 12:17 Central Line Flush IV PUSH PRN PRN with TPN bag changes Sodium Chloride 20 ml 08/30/24 12:17 09/10/24 05:46 Central Line Flush IV PUSH 20 ml PRN PRN Administration after blood draws Sodium Chloride 10 ml 09/04/24 22:00 09/16/24 05:06 Central Line Flush IV PUSH 10 ml Q8HR RHYS Administration Sodium Chloride 20 ml 09/04/24 12:30 09/09/24 04:45 Central Line Flush IV PUSH 20 ml PRN PRN Administration after blood draws Radiology Results: ITS Impressions Abdomen X-Ray 08/30/24 11:02 IMPRESSION: Bilateral pneumonia. Differential include pulmonary edema. Venous Doppler Study 09/03/24 10:50 IMPRESSION: 1. Extensive deep and superficial venous thrombosis throughout the bilateral upper lungs as detailed above. Findings were discussed with Jacinto Victor, the nurse caring for the patient, at 10:59 AM. ADDENDUM: 09/03/24 1400 CORRECTION: There is a dictation error in the impression section. With the correction capitalized this should read- Extensive deep and superficial venous thrombosis throughout the bilateral upper LIMBS as detailed above. Head CT 09/09/24 15:44 IMPRESSION: Large acute bilateral occipital lobe infarcts. Multifocal bilateral cerebellar infarcts. Focal bilateral thalamic acute infarcts. Results reported telephonically to Halle Browning RN by Dr. Campos at 3:48 PM on 09/09/2024. Chest/Abdomen/Pelvis CT 09/09/24 15:56 IMPRESSION: Endotracheal tube terminates 2.5 cm above the sun. Right IJ central line terminates in the right atrium. CT findings suggestive of right lower lobe pneumonia. Additional patchy bilateral groundglass and reticular opacities may represent edema or multifocal infection, to include atypical variants. Small bilateral pleural effusions. Asymmetric chest wall edema, greater on the right. Correlate for signs of infection. Subacute pelvic and sacral fractures. Chest X-Ray 09/13/24 06:49 Impression: Right basilar pulmonary edema versus pneumonia. Small right pleural effusion. Support tubes, as above.
[2024-09-16] MEDS: LORazepam INJ (*CRX) 2 MG/ML VIAL IV PUSH ×3 (12:51→21:04)
[2024-09-16] MEDS: MORPHINE 50 MG/NS 100ML (*CRX) 50 MG/100 ML BAG IV CONT ×2 (12:52→13:34)
[2024-09-17] MEDS: LORazepam INJ (*CRX) 2 MG/ML VIAL IV PUSH ×5 (00:59→15:20)
[2024-09-17] MEDS: MORPHINE 50 MG/NS 100ML (*CRX) 50 MG/100 ML BAG 8 MG IV CONT ×2 (01:21→14:00)
[2024-09-17] MEDS: CENTRAL LINE FLUSH 10 ML IV PUSH ×2 (04:07→15:21)
[2024-09-17 04:40] VITALS: BP 86/44; PULSE 132; RESP 16; O2SAT 96
[2024-09-17 06:00] VITALS: RESP 15
[2024-09-17 08:01] VITALS: PULSE 132; RESP 15; O2SAT 96
[2024-09-17] MEDS: MINERAL OIL/WHITE PETROLATUM OINTMENT 1 APPLIC EACH EYE (08:01)
--- NOTE | 2024-09-17 11:35 | PCDIET ---
Nutrition note: Pt transitioned to comfort care, no interventions. NPO diet. Please consult if nutrition needs arise.
[2024-09-17 16:11] VITALS: PULSE 120
--- NOTE | 2024-09-17 16:21 | PM.IMPN ---
Progress Note: A&P Assessment and Plan (1) Encephalopathy: Code(s): G93.40 - Encephalopathy, unspecified Status: Acute (2) Acute respiratory failure: Code(s): J96.00 - Acute respiratory failure, unspecified whether with hypoxia or hypercapnia Status: Acute (3) Gastroesophageal reflux disease: Qualifiers: Esophagitis presence: esophagitis presence not specified Qualified Code(s): K21.9 - Gastro-esophageal reflux disease without esophagitis Code(s): K21.9 - Gastro-esophageal reflux disease without esophagitis Status: Acute (4) FRANK (acute kidney injury): Code(s): N17.9 - Acute kidney failure, unspecified Status: Acute (5) Sepsis: Qualifiers: Sepsis acute organ dysfunction status: with acute organ dysfunction Sepsis type: sepsis due to unspecified organism Severe sepsis acute organ dysfunction type: encephalopathy Severe sepsis shock status: without septic shock Qualified Code(s): A41.9 - Sepsis, unspecified organism; R65.20 - Severe sepsis without septic shock; G93.41 - Metabolic encephalopathy Code(s): A41.9 - Sepsis, unspecified organism Status: Acute (6) Immunosuppressed status: Code(s): D89.9 - Disorder involving the immune mechanism, unspecified Status: Acute (7) Rheumatoid arthritis: Code(s): M06.9 - Rheumatoid arthritis, unspecified Status: Acute (8) Pneumonia: Qualifiers: Laterality: bilateral Lung location: unspecified part of lung Pneumonia type: due to unspecified organism Qualified Code(s): J18.9 - Pneumonia, unspecified organism Code(s): J18.9 - Pneumonia, unspecified organism Status: Acute (9) Herpes labialis: Code(s): B00.1 - Herpesviral vesicular dermatitis Status: Acute (10) Ileus: Code(s): K56.7 - Ileus, unspecified Status: Acute (11) Peripheral ischemia: Code(s): I99.8 - Other disorder of circulatory system Status: Acute (12) Swelling of both upper extremities: Code(s): M79.89 - Other specified soft tissue disorders Status: Acute (13) Anemia: Qualifiers: Anemia type: unspecified type Qualified Code(s): D64.9 - Anemia, unspecified Code(s): D64.9 - Anemia, unspecified Status: Acute (14) Electrolyte imbalance: Code(s): E87.8 - Other disorders of electrolyte and fluid balance, not elsewhere classified Status: Acute (15) Tachycardia: Code(s): R00.0 - Tachycardia, unspecified Status: Acute (16) DVT (deep venous thrombosis): Code(s): I82.409 - Acute embolism and thrombosis of unspecified deep veins of unspecified lower extremity Status: Acute (17) CVA (cerebral vascular accident): Code(s): I63.9 - Cerebral infarction, unspecified Status: Acute Plan Patient more comfortable today and less tachycardic after medication adjustment. Plan to continue current medical plan Hospice consult per family wishes. Subjective Date/time seen: 09/17/24 16:21 Interval history: 68yo female with rheumatoid arthritis, Crohn's disease, GERD with history of ulcers, osteoporosis on chronic immunosuppressive therapy who presented to the ER via EMS due to altered mental status. Patient is unresponsive and nonverbal. Family at bedside. Review of Systems Review of Systems: ROS unobtainable: Yes unobtainable due to mental status Exam Narrative: AF 98.3 86/44 120 15 96% 2L Gen - comfortable appearing Neck - right IJ TLC secured Chest - Coarse BS anteriorly CV - tachycardic Abd - Soft - Obregon secured draining clear yellow urine; FCS secured Ext - diffuse UE edema. Heel protectors in place Neuro - unresponsive Skin - multiple distal fingers are necrotic Objective Data Vital Signs Vital Signs: Vital Signs - 24 hr 09/16/24 20:00 09/16/24 21:39 09/17/24 04:40 Temperature 98.3 F Pulse Rate 133 H 132 H Respiratory Rate 18 16 Blood Pressure 105/58 L 86/44 L Pulse Oximetry 99 96 Oxygen Delivery Nasal Cannula Oxygen Flow Rate 2 Fraction of Inspired Oxygen 09/17/24 06:00 09/17/24 08:01 09/17/24 16:11 Temperature Pulse Rate 132 H 120 H Respiratory Rate 15 15 Blood Pressure Pulse Oximetry 96 Oxygen Delivery Nasal Cannula Oxygen Flow Rate 2 Fraction of Inspired Oxygen 21 Intake/Output Intake/Output: Intake & Output 09/14/24 09/15/24 09/16/24 09/17/24 23:59 23:59 23:59 23:59 Intake Total 85.5 96.4 193.7 Output Total 2300 1350 700 0 Balance -2300 -1264.5 -603.6 193.7 Meds/Results Medications: Active Medications Generic Name Dose Route Start Last Admin Trade Name Freq PRN Reason Stop Dose Admin Acetaminophen 650 mg 08/29/24 18:17 09/11/24 08:57 Acetaminophen 325 Mg Tablet PO 650 mg Q4H PRN Administration Mild Pain (1-3) or Fever Acetaminophen 650 mg 08/30/24 00:43 08/30/24 06:56 Acetaminophen 650 Mg Suppository RECTAL 650 mg Q6H PRN Administration Mild Pain (1-3) or Fever Atropine Sulfate 1 - 2 drop 09/13/24 13:02 09/15/24 04:35 Atropine Sulfate 1% Ophth Soln 5 Ml Bottle SUBLINGUAL 2 drop Q4H PRN Administration Secretions Dextrose 12.5 gm 08/29/24 20:42 08/31/24 20:55 Dextrose 50% 25 Gm/50 Ml Syringe IV PUSH 12.5 gm PRN PRN Administration Hypoglycemia Protocol Glucagon 1 mg 08/29/24 20:42 Glucagon For Inj 1 Mg Vial IM PRN PRN Hypoglycemia Protocol Glucose 15 gm 08/29/24 20:42 Glucose Oral Gel 15 Gm Of Glucse In 37.5 Gm Tube PO PRN PRN Hypoglycemia Protocol Hydralazine HCl 10 mg 09/08/24 15:05 09/09/24 00:43 Hydralazine Hcl 20 Mg/Ml Vial IV PUSH 10 mg Q4HR PRN Administration Blood Pressure - High Dextrose 1,000 mls @ 100 mls/hr 08/29/24 20:42 Dextrose 5% 1,000 Ml IVPB PRN PRN Hypoglycemia Protocol Morphine Sulfate 50 mg in 100 mls @ 8 mls/hr 09/14/24 15:55 09/17/24 14:00 IV CONT 4 mg/hr .[id number] RHYS 8 mls/hr Administration 4 MG/HR Lorazepam 2 mg 09/13/24 13:02 09/14/24 10:19 Lorazepam Inj (*Crx) 2 Mg/Ml Vial IV PUSH 2 mg Q1H PRN Administration Anxiety/Comfort Lorazepam 2 mg 09/16/24 12:00 09/17/24 15:20 Lorazepam Inj (*Crx) 2 Mg/Ml Vial IV PUSH 2 mg Q4H RHYS Administration Metoprolol Tartrate 5 mg 09/08/24 11:07 09/15/24 04:26 Metoprolol Tartrate Inj 5 Mg/5 Ml Vial IV PUSH 5 mg Q6H PRN Administration HR>130 Morphine Sulfate 4 mg 09/13/24 13:02 09/14/24 15:15 Morphine Sulfate (*Crx) 2 Mg/Ml Inj IV PUSH 4 mg Q30M PRN Administration COMFORT Multi-Ingred Cream/Lotion/Oil/Oint 1 applic 08/30/24 10:20 09/17/24 08:01 Mineral Oil/White Petrolatum Ointment EACH EYE 1 applic Q12HR RHYS Administration Sodium Chloride 10 ml 08/30/24 12:17 Central Line Flush IV PUSH PRN PRN with TPN bag changes Sodium Chloride 20 ml 08/30/24 12:17 09/10/24 05:46 Central Line Flush IV PUSH 20 ml PRN PRN Administration after blood draws Sodium Chloride 10 ml 09/04/24 22:00 09/17/24 15:21 Central Line Flush IV PUSH 10 ml Q8HR RHYS Administration Sodium Chloride 20 ml 09/04/24 12:30 09/09/24 04:45 Central Line Flush IV PUSH 20 ml PRN PRN Administration after blood draws Radiology Results: ITS Impressions Abdomen X-Ray 08/30/24 11:02 IMPRESSION: Bilateral pneumonia. Differential include pulmonary edema. Venous Doppler Study 09/03/24 10:50 IMPRESSION: 1. Extensive deep and superficial venous thrombosis throughout the bilateral upper lungs as detailed above. Findings were discussed with Jacinto Victor, the nurse caring for the patient, at 10:59 AM. ADDENDUM: 09/03/24 1400 CORRECTION: There is a dictation error in the impression section. With the correction capitalized this should read- Extensive deep and superficial venous thrombosis throughout the bilateral upper LIMBS as detailed above. Head CT 09/09/24 15:44 IMPRESSION: Large acute bilateral occipital lobe infarcts. Multifocal bilateral cerebellar infarcts. Focal bilateral thalamic acute infarcts. Results reported telephonically to Halle Browning RN by Dr. Campos at 3:48 PM on 09/09/2024. Chest/Abdomen/Pelvis CT 09/09/24 15:56 IMPRESSION: Endotracheal tube terminates 2.5 cm above the sun. Right IJ central line terminates in the right atrium. CT findings suggestive of right lower lobe pneumonia. Additional patchy bilateral groundglass and reticular opacities may represent edema or multifocal infection, to include atypical variants. Small bilateral pleural effusions. Asymmetric chest wall edema, greater on the right. Correlate for signs of infection. Subacute pelvic and sacral fractures. Chest X-Ray 09/13/24 06:49 Impression: Right basilar pulmonary edema versus pneumonia. Small right pleural effusion. Support tubes, as above.
--- NOTE | 2024-10-04 13:50 | P.DS_ITS ---
DS: Admitting Diagnosis Discharge Date 09/17/24 Admitting Diagnosis Acute respiratory failure DS: Discharge Diagnosis Discharge Diagnosis (1) Encephalopathy: Code(s): G93.40 - Encephalopathy, unspecified Status: Acute (2) CVA (cerebral vascular accident): Code(s): I63.9 - Cerebral infarction, unspecified Status: Acute (3) Acute respiratory failure: Code(s): J96.00 - Acute respiratory failure, unspecified whether with hypoxia or hypercapnia Status: Acute (4) FRANK (acute kidney injury): Code(s): N17.9 - Acute kidney failure, unspecified Status: Acute (5) Sepsis: Qualifiers: Sepsis acute organ dysfunction status: with acute organ dysfunction Sepsis type: sepsis due to unspecified organism Severe sepsis acute organ dysfunction type: encephalopathy Severe sepsis shock status: without septic shock Qualified Code(s): A41.9 - Sepsis, unspecified organism; R65.20 - Severe sepsis without septic shock; G93.41 - Metabolic encephalopathy Code(s): A41.9 - Sepsis, unspecified organism Status: Acute (6) Immunosuppressed status: Code(s): D89.9 - Disorder involving the immune mechanism, unspecified Status: Acute (7) DVT (deep venous thrombosis): Code(s): I82.409 - Acute embolism and thrombosis of unspecified deep veins of unspecified lower extremity Status: Acute (8) Rheumatoid arthritis: Code(s): M06.9 - Rheumatoid arthritis, unspecified Status: Acute (9) Pneumonia: Qualifiers: Laterality: bilateral Lung location: unspecified part of lung Pneumonia type: due to unspecified organism Qualified Code(s): J18.9 - Pneumonia, unspecified organism Code(s): J18.9 - Pneumonia, unspecified organism Status: Acute (10) Herpes labialis: Code(s): B00.1 - Herpesviral vesicular dermatitis Status: Acute (11) Ileus: Code(s): K56.7 - Ileus, unspecified Status: Acute (12) Peripheral ischemia: Code(s): I99.8 - Other disorder of circulatory system Status: Acute (13) Swelling of both upper extremities: Code(s): M79.89 - Other specified soft tissue disorders Status: Acute (14) Anemia: Qualifiers: Anemia type: unspecified type Qualified Code(s): D64.9 - Anemia, unspecified Code(s): D64.9 - Anemia, unspecified Status: Acute (15) Electrolyte imbalance: Code(s): E87.8 - Other disorders of electrolyte and fluid balance, not elsewhere classified Status: Acute (16) Tachycardia: Code(s): R00.0 - Tachycardia, unspecified Status: Acute (17) Gastroesophageal reflux disease: Qualifiers: Esophagitis presence: esophagitis presence not specified Qualified Code(s): K21.9 - Gastro-esophageal reflux disease without esophagitis Code(s): K21.9 - Gastro-esophageal reflux disease without esophagitis Status: Acute DS: Summary Hospital Course Reason for hospitalization: 68yo female with rheumatoid arthritis, Crohn's disease, GERD with history of ulcers, osteoporosis on chronic immunosuppressive therapy who presented to the ER via EMS due to altered mental status. Please see H&P for details. Hospital Course: Patient admitted for altered mental status and found to have acute respiratory failure and sepsis secondary to bilateral Pseudomonas pneumonia in an immunocompromised patient who was on methotrexate and hydroxychloroquine. She was intubated and developed ARDS physiology. Bronchoscopy did not show any LR hemorrhage or tracheobronchitis. BAL culture grew Pseudomonas which was pansensitive and also Milagros glabrata. Patient was placed in prone position abd was paralyzed. Abx started on admission and adjusted as appropriate. She was also treated with anti-fungal therapy. Patient presented with FRANK which was likely secondary to sepsis. Creatinine improved with IV fluids. Als with hypercalcemia. Nephrology was involved in her care. She was noted to have herpes labialis and was treated with acyclovir. Patient developed discoloration/gangrene of all 10 fingers likely systemic presentation likely DIC or septic emboli from pseudomonal infection. She had swelling of both upper extremities with Doppler showing extensive deep and superficial venous thrombosis throughout the bilateral upper extremities. She was treated with Lovenox. Patient was off sedation for more than 72 hours but remained unresponsive. Brain CT (09/09/24) showed large acute bilateral occipital lobe infarcts, multifocal bilateral cerebellar infarcts and focal bilateral thalamic acute infarcts. Family met and they decided to move patient toward comfort measures. Patient was extubated and comfort measures instituted. She was ultimately transferred to hospice care. Status at Discharge Cognitive/behavioral status at discharge: unresponsive. Time Spent with Patient Time attestation: Total time spent providing and/or coordinating discharge services: 32 minutes Time spent: Greater than 30 minutes Exam Narrative: AF 98.3 86/44 120 15 96% 2L Gen - comfortable appearing Neck - right IJ TLC secured Chest - Coarse BS anteriorly CV - tachycardic Abd - Soft - [place] secured draining clear yellow urine; FCS secured Ext - diffuse UE edema. Heel protectors in place Neuro - unresponsive Skin - multiple distal fingers are necrotic DS: Data Data Completed and Pending Completed studies during hospitalization: Pending at discharge 08/31/24 08:00 Cytology [PTH] Routine Labs on day of discharge: Preliminary micro results at discharge 08/31/24 08:39 Acid Fast Bacilli Culture - Preliminary Bronchial Washings Carinal 08/31/24 08:30 Acid Fast Bacilli Culture - Preliminary Bronchial Alveo Lavage Right Middle Lobe Discharge Plan Discharge Attending physician on discharge: Todd Gardner Consulting providers: Cristóbal Frost; Rosamaria Fletcher; Bud James; Celso Avelar; Damion Vega; Le Friedman; Robert Snow; Lorenzo Sosa; Shameka Bolton; Yonathan Chiang; Rosa Duncan; Estrellita,Larry Stock; Arley Wagner; Felix Elaine; Dario Campos Discharging Clinician: Todd Gardner Anticipated Discharge Date/Time: 09/17/24 13:48 Patient Disposition: Hospice [facility] Inpatient Activity: as tolerated Diet: as tolerated Patient Instructions: Heparin (By injection) Patient Language: Maldivian Stand Alone Forms: General Discharge Information Date of admission: 08/30/24 08:54 Primary Care Provider: Genet Patel Admitting Provider: Kash Barrera Attending physician on admission: Todd Gardner Condition: Serious Hospitalist MIPS Heart Failure (Exclusion) Patient has history of Heart Transplant or Left Ventricular Assistive Device?: No IF YES, STOP HERE Heart Failure (Qualifier) Patient has current or prior documentation of LVEF less than or equal to 40%, or mod/servere depressed LVSF?: No IF NO, STOP HERE
== END 2024-09-17 16:23 | disposition hospice, inpatient (51) | DRG 870 ==
LOC: ANHED 18:26 → ANHIMU 19:49 → ANHICU 08-30 09:57 → ANH2MED 09-17 16:23 → ANHICU 09-18 09:09
PROVIDERS: Internal Medicine; Internal Medicine Nephrology; Internal Medicine Pulmonary Disease; Nurse Practitioner Adult Health; Admitting Provider Internal Medicine; Emergency Provider Emergency Medicine; PCP Nurse Practitioner Family; Visit Provider Internal Medicine
PROC: 0BJ08ZZ Inspection of Tracheobronchial Tree, Via Natural or Artificial Opening Endoscopic (ICD-10-PCS; CPT 31622; principal; 2024-08-31 07:30)
DX: A41.9 Sepsis, unspecified organism (principal); J15.1 Pneumonia due to Pseudomonas; E43 Unspecified severe protein-calorie malnutrition; G93.41 Metabolic encephalopathy; J96.01 Acute respiratory failure with hypoxia; I63.9 Cerebral infarction, unspecified; N17.9 Acute kidney failure, unspecified; K50.90 Crohn's disease, unspecified, without complications; K56.7 Ileus, unspecified; I96 Gangrene, not elsewhere classified; I82.623 Acute embolism and thrombosis of deep veins of upper extremity, bilateral; E87.0 Hyperosmolality and hypernatremia; B37.89 Other sites of candidiasis; R65.20 Severe sepsis without septic shock; M06.9 Rheumatoid arthritis, unspecified; E87.6 Hypokalemia; D64.9 Anemia, unspecified; M19.90 Unspecified osteoarthritis, unspecified site; A60.04 Herpesviral vulvovaginitis; B00.1 Herpesviral vesicular dermatitis; D50.9 Iron deficiency anemia, unspecified; H40.9 Unspecified glaucoma; R33.9 Retention of urine, unspecified; E16.2 Hypoglycemia, unspecified; K21.9 Gastro-esophageal reflux disease without esophagitis; E83.52 Hypercalcemia; E78.2 Mixed hyperlipidemia; R00.0 Tachycardia, unspecified; L89.329 Pressure ulcer of left buttock, unspecified stage; M81.0 Age-related osteoporosis without current pathological fracture; M85.80 Other specified disorders of bone density and structure, unspecified site; G25.81 Restless legs syndrome; Z96.643 Presence of artificial hip joint, bilateral; Z96.653 Presence of artificial knee joint, bilateral; Z90.49 Acquired absence of other specified parts of digestive tract; Z68.24 Body mass index [BMI] 24.0-24.9, adult; Z79.69 Long term (current) use of other immunomodulators and immunosuppressants; Z66 Do not resuscitate
CPT/HCPCS: 31500; 36415; 36430; 36569; 36600; 70450; 71045; 71250; 74176; 80048; 80053; 80076; 80202; 80307; 81001; 82164; 82274; 82306; 82310; 82375; 82570; 82607; 82652; 82728; 82746; 82805; 82948; 82977; 83050; 83519; 83540; 83550; 83605; 83735; 83880; 83970; 84100; 84145; 84156; 84300; 84443; 84540; 84590; 85018; 85025; 85027; 85610; 85730; 85999; 86140; 86480; 86703; 86738; 86850; 86900; 86901; 86923; 87015; 87040; 87070; 87086; 87102; 87116; 87186; 87205; 87206; 87254; 87279; 87281; 87385; 87449; 87486; 87497; 87529; 87633; 87637; 87641; 87899; 88108; 88305; 93005; 93970; 94002; 94003; 96361; 96365; 96366; 96367; 96375; 99212; 99285; A9270; C1751; C8929; G0378; G0432; G0463; J0330; J0360; J0456; J0616; J0630; J0692; J0696; J1205; J1644; J1650; J1720; J1938; J1939; J1956; J2003; J2060; J2185; J2248; J2250; J2270; J2430; J2470; J2704; J2919; J3010; J3370; J3373; J3475; J3480; J7030; J7040; J7042; J7050; J7060; J7070; P9016; P9045; P9047; Q9957

== ENCOUNTER 2024-09-17 16:25 | HOS | payer OTHER, MEDICARE, MEDICAID, SELFPAY ==
--- OUTSIDE RECORDS SUMMARY | 2024-09-17 16:37 | XMS_ITS | Clinical Summary ---
Author Organization [facility] Address [address] [place] [id number] Care Team Providers Care Physician Assistant Primary Care Name Role Phone Maximiliano Jolley MD Primary Care Provider [phone] Social History Tobacco Use Types Packs/Day Years [...] age to complete this topic Care Teams Physician Assistant Primary Care Relationship Specialty Start Date End Date Maximiliano Jolley MD PCP - General 10/09/14
--- OUTSIDE RECORDS SUMMARY | 2024-09-17 16:37 | XMS_ITS ---
Author Organization [facility] Address [address] [place], [place] [id number] Care Team Providers Care [employer] Name Role Phone JOSHUA, HALIMA Primary Care Provider Unavailabl e Brenda Almonte Unavailable [phone] Unavailable Unavailable REASON FOR VISIT Mistake Encounters Encounter Location Date Provider Diagnosis [facility] [address], [address] [place], [place] [id number] 08/21/2024 Brenda Almonte PLAN OF TREATMENT No Information
--- OUTSIDE RECORDS SUMMARY | 2024-09-17 16:37 | XMS_ITS | Clinical Summary ---
Author Organization [facility] Address [address] [facility] [place] [address] Care Team Providers Care Mangle Tender Name Role Phone Ricky Ballesteros MD Primary Care Provider [phone] Source Comments [facility],non-owned Affiliates and Associated Physician Practices is amultiple site organization consisting of ambulatory clinics and hospital sitesin [place], [place], [place] and [place]. This disclosure is being madepursuant to the Care Everywhere program and may not contain all information available regarding this patient. Last updated 17.[facility] Allergies No known active allergies Medications * [...] on file Legal Sex Female 7:29 PM MAT MAN Gender Identity Not on file Sexual Orientation [...] season) 2023 DEPRESSION SCREENING 03/14/2024 INFLUENZA VACCINE (#1) 2024 Respiratory Syncytial Virus (RSV) Vaccine Pt: [...] Insurance MEDICARE MEDICAID - [place] Care Teams Mangle Tender Relationship Specialty Start Date End Date Ricky Ballesteros MD [address] [place] [address] PCP - General Internal Medicine 07/24/18
--- OUTSIDE RECORDS SUMMARY | 2024-09-17 16:37 | XMS_ITS ---
Author Organization [facility] Address [address] [place], [place] [address] Care Team Providers Care Valve And Regulator Repairer Name Role Phone HALIMA LEWIS Primary Care Provider Unavailabl e Brenda Almonte Unavailable [phone] Unavailable Unavailable REASON FOR VISIT New Refill Request Encounters Encounter Location Date Provider Diagnosis [facility] [address], [address] [place], [place] [address] 08/20/2024 Brenda Almonte PLAN OF TREATMENT No Information
--- OUTSIDE RECORDS SUMMARY | 2024-09-17 16:38 | XMS_ITS | Referral Summary ---
Author Organization [facility] Address [address] [place] [address] Care Team Providers Care Pipeline Technician Name Role Phone Genet Patel NP Primary Care Provider [phone] Allergies Active Allergy Reactions Criticality Noted Date [...] mg tablet 6 tabs 9 Active multivit-iron- UW-pvdhiuq-dqx s (One-A-Day Womens Formula) 18 mg iron-400 [...] on file Legal Sex Female 2:31 AM SLATE SPLITTER Gender Identity Not on file Sexual Orientation Not on file Last Filed Vital Signs Vital Sign Reading Time Taken Comments Blood Pressure 121/79 03/30/2016 2:29 PM SLATE SPLITTER Pulse 99 03/30/2016 2:29 PM SLATE SPLITTER Temperature - - Respiratory Rate - - [...] Bone mineral density was performed on a Holoimagoo Discovery Densitometer. Based on machine cross-calibration and [...] by the International Society of Clinical Densitometry. [id number] us Rima Murcia MD IMG DXA PROCEDURES [...] age 40, based on guidelines of the [place] [employer] (ACR Practice Parameter for the Performance of Screening and Diagnostic Mammography) and [place] [employer]. For women [...] Most Recently Relevant to Health Maintenance Insurance [employer] MEDICARE RAILROAD MEDICARE RAILROAD IDPA MEDICARE RAILROAD IDPA Care Teams Pipeline Technician Relationship Specialty Start Date End Date WinterGenet NP [address] [facility] [address] [facility] 1 [place], [place] [address] PCP - General Nurse Practitioner 06/06/24
--- OUTSIDE RECORDS SUMMARY | 2024-09-17 16:38 | XMS_ITS | Patient Health Record ---
Author Organization [facility] Address [address] [facility] [address] [place], [place] [address] Care Team Providers Care Concrete Bucket Hooker Name Role Phone JOSHUAHALIMA Primary Care Provider UnavailBrenda Wolfe Unavailable [phone] Unavailable Unavailable Dulce Andrade Unavailable [phone] ALLERGIES Allergen (clinical drug ingredient) Drug/Non Drug Allergy documented on EMR Reaction Allergy Type Onset Date Status codeine codeine rash, headache Drug Allergy Ac tive RESULTS Component Value Reference Range Notes AST (SGOT) Reviewed date:02/10/2024 07:34:06 PM Interpretation: Performing Lab:[facility], [address] [place] [address], Phone - [phone], Director - [facility] Notes/Report: AST (SGOT) 42 0-40 IU/L Creatinine, Serum Reviewed date:12/23/2023 04:35:08 PM Interpretation: Performing Lab:[facility], [address] [place] [address], Phone - [phone], Director - PhDFranciscan Children'Sabdoulaye Notes/Report: Creatinine 0.53 0.57-1.00 mg/dL eGFR 102 >59 mL/min/1.73 ALT (SGPT) Reviewed date:02/10/2024 07:34:06 PM Interpretation: Performing Lab:[facility], [address] [facility], Phone - [phone], Director - PhDChika Notes/Report: ALT (SGPT) 50 0-32 IU/L CBC With Differential/Platel et Reviewed date:02/10/2024 07:34:06 PM Interpretation: Performing Lab:[facility], [address] [place] [address], Phone - [phone], Director - [facility] Notes/Report: WBC 4.9 3.4-10.8 x10E3/uL RBC 3.27 [...] Westergren Reviewed date:12/23/2023 04:35:08 PM Interpretation: Performing Lab:[facility], [address] [place] [address], Phone - [phone], Director - [facility] Children'Sary Notes/Report: Sedimentation Rate-Westergren 13 0-40 mm/hr C-Reactive Protein, Quant Reviewed date:12/23/2023 04:35:08 PM Interpretation: Performing Lab:[facility], [address] [place] [address], Phone - [phone], [facility] Notes/Report: C-Reactive Protein, Quant 20 0-10 mg/L QUANTIFERON(R)-TB GOLD PLUS, 1 TUBE Reviewed date:12/23/2023 04:35:08 PM Interpretation: Performing Lab:[facility] [address] [place] [address], Phone - [phone], Director - [facility] Notes/Report: QuantiFERON Incubation Incubation performed. QuantiFERON-TB Gold [...] (SGOT) Reviewed date:03/17/2024 03:36:27 PM Interpretation: Performing Lab:[facility] [address] [place] [address], Phone - [phone], Director - [facility] Notes/Report: AST (SGOT) 26 0-40 IU/L Creatinine, Serum Reviewed date:03/20/2024 11:47:41 AM Interpretation: Performing Lab:[address], Phone - [phone], Director - [facility] Notes/Report: Creatinine 0.56 0.57-1.00 mg/dL eGFR 101 >59 mL/min/1.73 ALT (SGPT) Reviewed date:03/17/2024 03:36:35 PM Interpretation: Performing Lab:[address], Phone - [phone], Director - [facility] Notes/Report: ALT (SGPT) 17 0-32 IU/L CBC With Differential/Platel et Reviewed date:03/17/2024 03:38:58 PM Interpretation: Performing Lab:[facility], Phone - [phone], [facility] Notes/Report: WBC 7.2 3.4-10.8 x10E3/uL RBC 3.49 [...] Hepatitis Reviewed date:03/17/2024 03:36:23 PM Interpretation: Performing Lab:[facility], [address] [facility], Phone - [phone], Director - Kurt Notes/Report: Hep A Ab, IgM Negative Negative [...] Notes Start Date End Date Status Vitamin B12 1000 mcg 1 tab(s) orally onc e a day Active Carafate 1 g 1 tab(s) orally 4 ti mes a day (before meals and at bedtime) Active Rinvoq 15 mg Take 1 tablet by once daily for 30 Active Align every day Active traMADol 50 mg 1-2 tab(s) orally 4 times a day for 30 days 07/16/2024 Active predniSONE 5 mg 1 tab(s) orally ever y other day for 30 day(s) Active Imuran 50 mg TAKE 1 TABLET BY LUCERO TH ONCE DAILY Active fish oil as directed oral onc e a day Active CeleBREX 200MG 1 cap oral 2 times a day for 90 days Active Reclast 5 mg/100 mL 0 intravenously once Active Clobetasol (Eqv-Temovate E) Active Lexapro 10 mg 1 tab(s) orally once a day Active Methotrexate Sodium 2.5MG 8 tabs orally once a week for 28 days Active predniSONE 5 mg 6 tablets for 2 days then decrease by 1 tablet every 2 days until jt orally once a day for 12 days 07/19/2024 Active Vitamin C 500 mg 1 cap(s) orally once a day Active Voltaren Topical 1% APPLY TWO GRAMS TOPICALLY TWICE DAILY to hands and wrist for 30 days Active Fiber daily Active folic acid 1 mg 1 tab(s) orally once a day Active One-A-Day Women Multiple Vitamins with Minerals 1 tab(s) orally once a day Active Calcium 600+D 1 tab(s) orally 1 ti mes a day Active iron as directed oral Act prashatnh Hydroxychloroquine Sulfate 200 mg 1 tab(s) orally once a day for 90 days Active Vitamin D3 1000 intl units 1 tab(s) oral ly once a day Active Orencia ClickJect 125 mg/mL INJECT 1 SYR ESTELA SUBCUTANEOUSLY ONCE A WEEK subcutaneously once a week for 28 days Active PROBLEMS Problem Type ICD Code Onset Dates Problem Status W/U Status Risk SNOMED Code Notes Problem Other 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 (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) 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 therapy (Z79.899) Active confirmed 768361411 Problem Osteoporosis (M81.0) Active confirmed 6 8360835 Problem Psoriatic arthritis (L40.50) Active confirmed Problem Polyarthritis (M13.0) Active confirmed 48855784 Problem Anemia (D64.9) Active confirmed 9715152 00 Problem Crohns disease (K50.90) Active confirmed 23826258 Problem Non-smoker (Z78.9) Active confirmed 839 2000 Problem Right hand pain (M79.641) Active confirmed 59270089 Problem Spondyloarthropathy (M46.90) Active confirmed 331877607 Problem Acute anemia (D64.9) Active confirmed 2 89193558 VITAL SIGNS Heart Rate 100 /min 03/16/2024 Blood pressure diastolic 90 mm Hg 03/16/2024 Height 62 in 03/16/2024 Blood pressure systolic 123 mm Hg 03/16/2024 Weight 113 lbs 03/16/2024 BMI 20.67 kg/m2 03/16/2024 PROCEDURES Procedure Date Ordered Date Performed Result Body Sit e Inj-Toradol 12/16/2023 N/A Encounters Encounter Location Date Provider Diagnosis [facility] [address] [place] [address], [address] [id number] 12/16/2023 Dulce Andrade Psoriatic arthritis L40.50 ; Spondyloarthropathy M46.90 ; Other prison (current) drug therapy Z79.899 ; Encounter for screening for respiratory tuberculosis Z11.1 ; Dorsalgia M54.9 ; Crohns disease K50.90 ; Osteoporosis M81.0 ; Encounter for examination of eyes and vision without abnormal findings Z01.00 and Encounter for other specified special examinations Z01.89 [facility] [address] [place] [address], [address] [id number] 03/16/2024 Brenda Almonte Psoriatic arthritis L40.50 ; Spondyloarthropathy M46.90 ; Other prison (current) drug therapy Z79.899 ; Encounter for screening for respiratory tuberculosis Z11.1 ; Dorsalgia M54.9 ; Crohns disease K50.90 ; Osteoporosis M81.0 ; Encounter for examination of eyes and vision without abnormal findings Z01.00 and Encounter for other specified special examinations Z01.89 [facility] [address] [place] [address], [address] [id number] 06/14/2024 Dulce Andrade [facility] [address] [place] [address], [address] [id number] 06/14/2024 Dulce Andrade [facility] [address] [place] [address], [address] [id number] 07/06/2024 Dulce Andrade [facility] [address] [place] [address], [address] [id number] 08/20/2024 Dulce Andrade [facility] [address], [address] [id number] 08/30/2024 Dulce Andrade [facility] [address] [facility], [address] [id number] 09/19/2023 Brenda Dehlendorf [facility], [address] [id number] 12/16/2023 Brenda Dehlendorf [facility] [place] [facility], [address] [id number] 12/25/2023 Brenda Dehlendorf Elevated LFTs R79.89 and Acute anemia D64.9 [facility] [address] [place] [address], [address] [id number] 01/16/2024 Brenda Dehlendorf Psoriatic arthritis L40.50 [facility] [place] [address] [id number] 02/26/2024 Brenda Dehlendorf [facility] [place] [facility], [address] [id number] 03/16/2024 Brenda Dehlendorf [facility] [address] [place] [address], [address] [id number] 03/19/2024 Brenda Dehlendorf [facility], [address] [id number] 04/17/2024 Brenda Dehlendorf Psoriatic arthritis L40.50 [facility] [place] [facility], [address] [id number] 04/17/2024 Brenda Dehlendorf Psoriatic arthritis L40.50 [facility] [place] [facility], [address] [id number] 07/16/2024 Brenda Dehlendorf Psoriatic arthritis L40.50 [facility] [place] [facility], [address] [id number] 09/26/2023 Brenda Dehlendorf [facility] [address] [place] [address], [address] [id number] 09/26/2023 Brenda Dehlendorf [facility] [address], [address] [id number] 09/26/2023 Brenda Dehlendorf [facility] [address], [address] [id number] 09/29/2023 Brenda Dehlendorf [facility] [address], [address] [id number] 12/02/2023 Brenda Dehlendorf [facility] [address], [address] [id number] 01/17/2024 Brenda Dehlendorf Psoriatic arthritis L40.50 [facility] [address] [id number] 02/24/2024 Brenda Dehlendorf [facility] [address], [address] [id number] 02/24/2024 Brenda Dehlendorf [facility] [address] [id number] 03/16/2024 Brenda Dehlendorf [facility] [address], [address] [id number] 03/16/2024 Brenda Dehlendorf [facility] [address] [id number] 04/15/2024 Brenda Dehlendorf [facility] [address], [address] [id number] 05/09/2024 Brenda Dehlendorf [facility] [address], [address] [id number] 06/11/2024 Brenda Dehlendorf [facility] [address], [address] [id number] 06/12/2024 Brenda Dehlendorf [facility] [address], [address] [id number] 07/06/2024 Brenda Dehlendorf [facility] [address], [address] [id number] 07/19/2024 Brenda Dehlendorf [facility] [address] [facility], [address] [place], [place] [id number] 08/01/2024 Brenda Almonte [facility] [address] [facility], [address] [place], [place] [id number] 08/03/2024 Brenda Almonte Spondyloarthropathy M46.90 [facility] [address] [facility], [address] [place], [place] [id number] 08/17/2024 Brenda Almonte [facility] [address] [facility], [address] [place], [place] [id number] 08/20/2024 Brenda Almonte [facility] [address] [facility] [address] [place], [place] [id number] 08/21/2024 Brenda Almonte ASSESSMENTS Encounter Date Diagnosis Assessment Notes Treatment Notes Treatment Clinical Notes Section Notes 12/16/2023 Psoriatic arthritis (ICD-10 - L40.50) Give [...] TB screening regularly. OP per Dr. Murcia's MACHINE ROOM ENGINEER. Bipin per GI- on AZA. Cont eye exams for HCQ 03/16/2024 Spondyloarthropathy (ICD-10 - M46.90) PsA- look into new MOA biologic. Rinvoq vs Acemtra. Using too much Prednisone. Discussed BB warning with REFUGIO's- no hx of DVT/PE. Check labs. LFTs up last time- may need to drop MTX dose a bit. She has failed several TNF's. TB screening regularly. OP per Dr. Murcia's MACHINE ROOM ENGINEER. Crohns per GI- on AZA. Cont eye exams for HCQ 01/16/2024 Psoriatic arthritis (ICD-10 - L40.50) 04/17/2024 Psoriatic arthritis (ICD-10 - L40.50) 04/17/2024 Psoriatic arthritis (ICD-10 - L40.50) 07/16/2024 Psoriatic arthritis (ICD-10 - L40.50) 01/17/2024 Psoriatic arthritis (ICD-10 - L40.50) 08/03/2024 Spondyloarthropathy (ICD-10 - M46.90) 12/16/2023 Other termite treater (current) drug therapy (ICD-10 - Z79.899) Continue Orencia, HCQ, Imuran and MTX for PsA. She has failed several TNF's. TB screening regularly. OP per Dr. Murcia. Crohns per GI- on AZA. Continue Eye exam for HCQ., Labwork drawn to evaluate disease process and to monitor any adverse effects of medications. 03/16/2024 Other prison (current) drug therapy (ICD-10 - Z79.899) PsA- look into new MOA biologic. Rinvoq vs Acemtra. Using too much Prednisone. Discussed BB warning with REFUGIO's- no hx of DVT/PE. Check labs. LFTs up last time- may need to drop MTX dose a bit. She has failed several TNF's. TB screening regularly. OP per Dr. Murcia's MACHINE ROOM ENGINEER. Crohns per GI- on AZA. Cont eye exams for HCQ 12/25/2023 Elevated LFTs (ICD-1 0 - R79.89) 12/16/2023 Encounter for screen ing for respiratory tuberculosis (ICD-10 - Z11.1) Continue Orencia, HCQ, Imuran and MTX for PsA. She has failed several TNF's. TB screening regularly. OP per Dr. Murcia. Crohns per GI- on AZA. Continue Eye exam for HCQ., Labwork drawn to evaluate disease process and to monitor any adverse effects of medications. 03/16/2024 Encounter for screen ing for respiratory tuberculosis (ICD-10 - Z11.1) PsA- look into new MOA biologic. Rinvoq vs Acemtra. Using too much Prednisone. Discussed BB warning with REFUGIO's- no hx of DVT/PE. Check labs. LFTs up last time- may need to drop MTX dose a bit. She has failed several TNF's. TB screening regularly. OP per Dr. Murcia's MACHINE ROOM ENGINEER. Crohns per GI- on AZA. Cont eye exams for HCQ 12/25/2023 Acute anemia (ICD-10 - D64.9) 12/16/2023 Dorsalgia (ICD-10 - M54.9) Continue Orencia, [...] TB screening regularly. OP per Dr. Murcia's MACHINE ROOM ENGINEER. Crohns per GI- on AZA. Cont eye exams for HCQ 12/16/2023 Crohns disease (ICD- 10 - K50.90) [...] TB screening regularly. OP per Dr. Murcia's MACHINE ROOM ENGINEER. Bipin per GI- on AZA. Cont eye exams for HCQ 12/16/2023 Osteoporosis (ICD-10 - M81.0) Continue Orencia, [...] TB screening regularly. OP per Dr. Murcia's MACHINE ROOM ENGINEER. Bipin per GI- on AZA. Cont eye exams for HCQ 12/16/2023 Encounter for examination of eyes and [...] TB screening regularly. OP per Dr. Murcia's MACHINE ROOM ENGINEER. Bipin per GI- on AZA. Cont eye exams for HCQ 12/16/2023 Encounter for other specified special examinations [...] TB screening regularly. OP per Dr. Murcia's MACHINE ROOM ENGINEER. Crohns per GI- on AZA. Cont eye exams for HCQ PLAN OF TREATMENT Pending Test Test Name Order Date X ray : Spines, lumbar- outside order AST (SGOT) 10/13/2020 AST (SGOT) 12/25/2023 AST (SGOT) 07/01/2018 AST (SGOT) 06/20/2021 Creatinine, Serum 10/13/2020 ALT (SGPT) 06/20/2021 ALT (SGPT) 12/25/2023 ALT (SGPT) 10/13/2020 ALT (SGPT) 07/01/2018 CBC With Differential/Platelet 2 CBC With Differential/Platelet 4 CBC With Differential/Platelet 1 Sed Rate - Westergren 10/13/2020 C-Reactive Protein, Quant 10/13/2020 Joint Injection - CMC, LEFT 04/14/2020 Joint Injection - knee, left 10/22/2014 INJ TRIAMCINOLONE ACETONIDE 10 MG 2018 INJ TRIAMCINOLONE ACETONIDE 10 MG 2022 INJ TRIAMCINOLONE ACETONIDE 10 MG 2021 INJ TRIAMCINOLONE ACETONIDE 10 MG 2018 Joint Injection - MCP, LEFT 03/05/2015 Joint Injection - MCP, LEFT 04/14/2020 Joint Injection - CMC, RIGHT 07/16/2019 Joint Injection - CMC, RIGHT 07/13/2012 Joint Injection - CMC, RIGHT 01/25/2013 Joint Injection - PIP, RIGHT 07/30/2015 Joint Injection - PIP, RIGHT 07/13/2012 Joint Injection - MCP, RIGHT 01/21/2014 Joint Injection - MCP, RIGHT 11/03/2011 Joint Injection - MCP, RIGHT 07/30/2015 Joint Injection - MCP, RIGHT 07/16/2019 Joint Injection - MCP, RIGHT 02/08/2018 Joint Injection - MCP, RIGHT 11/14/2020 Joint Injection - MCP, RIGHT 06/22/2016 Joint Injection - MCP, RIGHT 10/22/2014 Joint Injection - MCP, RIGHT 08/17/2017 Joint Injection - MCP, RIGHT 03/29/2018 Joint Injection - MCP, RIGHT 03/05/2015 Joint Injection - MCP, RIGHT 01/25/2013 Joint Injection-wrist, right 07/16/2019 Joint Injection-wrist, right 02/08/2018 Joint Injection-wrist, right 11/14/2020 Joint Injection-wrist, right 08/17/2017 X ray : SI joints- outside order 023 QUANTIFERON(R)-TB GOLD-quest only 2017 Inj-Toradol 12/16/2023 Inj-Toradol 06/27/2018 Inj-Toradol 01/03/2023 Inj-Toradol 02/19/2022 Inj-Toradol 03/29/2018 Eye exam - Plaquenil 04/14/2020 Lab slip given 02/08/2018 Lab slip given 10/13/2020 -Xray slip given 01/03/2023 Future Test Test Name Order Date AST (SGOT) 11/12/2019 Creatinine, Serum 11/12/2019 ALT (SGPT) 11/12/2019 CBC With Differential/Platelet 0 Lab slip given 11/12/2019 AST (SGOT) 01/25/2023 ALT (SGPT) 01/25/2023 AST (SGOT) 01/09/2024 ALT (SGPT) 01/09/2024 CBC With Differential/Platelet 4 Insurance Providers Payer Name Payer Address Payer Phone Subscriber Number Group Number Insured Name Patient Relationship to Insured Coverage Start Date Coverage End Date [facility] [address] [address] [place] [address] [phone] [id number] Ina Ferguson Self - patient is the insured 5 [place] [employer] [address] [address] [place] [id number] Ian Ferguson Self - patient is the insured [...]
--- OUTSIDE RECORDS SUMMARY | 2024-09-17 16:38 | XMS_ITS | Clinical Summary ---
Author Organization [facility] Address [address] [place] [address] Care Team Providers Care Python Web Developer Name Role Phone Genet Patel NP Primary Care Provider [phone] Allergies Active Allergy Reactions Criticality Noted Date [...] mg tablet 6 tabs 9 Active multivit-iron- YM-bmnkhht-nzr s (One-A-Day Womens Formula) 18 mg iron-400 [...] on file Legal Sex Female 2:31 AM PADDED PRODUCTS FINISHER Gender Identity Not on file Sexual Orientation Not on file Obstetrics History Para Term AB IAB SAB Ectopic Multiple Livin g Live Births 1 1 1 Date Outcome GA Total Labor Labor/2nd/3rd Weight Sex Type Anes PTL Mouna A1 A5 Name Clin Term Last Filed Vital Signs Vital Sign Reading Time Taken Comments Blood Pressure 121/79 03/30/2016 2:29 PM PADDED PRODUCTS FINISHER Pulse 99 03/30/2016 2:29 PM PADDED PRODUCTS FINISHER Temperature - - Respiratory Rate - - [...] 06/24/2021, 03/30/2016, Additional history exists Influenza Vaccine (#1) 2024 7, 12/04/2015, 11/22/2013, Additional history exists Procedures Procedure [...] 09/07/2022 10:26 AM CDT Patient Name: Sarah A Jose Date of : 1955 Date of scan: [...] by the International Society of Clinical Densitometry. [id number] Rima Murcia MD IMG DXA PROCEDURES Final [...] age 42, based on guidelines of the [place] [employer] (ACR Practice Parameter for the Performance of Screening and Diagnostic Mammography) and [place] [employer]. For women [...] Most Recently Relevant to Health Maintenance Insurance [facility] MEDICARE RAILROAD MEDICARE RAILROAD [facility] MEDICARE RAILROAD IDPA Care Teams Python Web Developer Relationship Specialty Start Date End Date Genet Patel NP [address] [place] [address] PCP - General Nurse Practitioner 06/06/24
--- OUTSIDE RECORDS SUMMARY | 2024-09-17 16:38 | XMS_ITS ---
Author Organization [facility] Address [address] [place], [place] [id number] Care Team Providers Care Biomedical Field Service Engineer Name Role Phone MOY LEWISDIE Primary Care Provider UnavailBrenda Wolfe Unavailable [phone] Unavailable Unavailable Dulce Andrade Unavailable [phone] ALLERGIES Allergen (clinical drug ingredient) Drug/Non Drug Allergy documented on EMR Reaction Allergy Type Onset Date Status codeine codeine rash, headache Drug Allergy Ac tive REASON FOR VISIT *Pt. in ICU, will call back to r/s* MEDICATIONS Medication SIG (Take, Route, Frequency, Duration) Notes Start Date End Date Status fish oil as directed oral onc e a day Active Clobetasol (Eqv-Temovate E) Active Vitamin C 500 mg 1 cap(s) orally once a day Active iron as directed oral Act prashanth Orencia ClickJect 125 mg/mL INJECT 1 SYR ESTELA SUBCUTANEOUSLY ONCE A WEEK subcutaneously once a week for 28 days Active Vitamin B12 1000 mcg 1 tab(s) orally onc e a day Active Carafate 1 g 1 tab(s) orally 4 ti mes a day (before meals and at bedtime) Active Align every day Active Lexapro 10 mg 1 tab(s) orally once a day Active One-A-Day Women Multiple Vitamins with Minerals 1 tab(s) orally once a day Active Imuran 50 mg TAKE 1 TABLET BY ONCE DAILY Active Reclast 5 mg/100 mL 0 intravenously once Active Fiber daily Active Calcium 600+D 1 tab(s) orally 1 ti mes a day Active Vitamin D3 1000 intl units 1 tab(s) oral ly once a day Active traMADol 50 mg 1-2 tab(s) orally 4 times a day for 30 days 07/16/2024 Active CeleBREX 200MG 1 cap oral 2 times a day for 90 days Active Methotrexate Sodium 2.5MG 8 tabs orally once a week for 28 days Active predniSONE 5 mg 6 tablets for 2 days then decrease by 1 tablet every 2 days until jt orally once a day for 12 days 07/19/2024 Active Voltaren Topical 1% APPLY TWO GRAMS TOPICALLY TWICE DAILY to hands and wrist for 30 days Active Rinvoq 15 mg Take 1 tablet by sharla once daily for 30 Active predniSONE 5 mg 1 tab(s) orally ever y other day for 30 day(s) Active folic acid 1 mg 1 tab(s) orally once a day Active Hydroxychloroquine Sulfate 200 mg 1 tab(s) orally once a day for 90 days Active Encounters Encounter Location Date Provider Diagnosis [facility] [address] [facility] [place], [place] [id number] 08/30/2024 Dulce Andrade PLAN OF TREATMENT No Information
--- OUTSIDE RECORDS SUMMARY | 2024-09-17 16:38 | XMS_ITS | Clinical Summary ---
Author Organization [facility] Address [address] [place] [address] Phone Care Team Providers Care Parenting Skills Instructor Name Role Phone Ricky Ballesteros MD Primary Care Provider [phone] Allergies Active Allergy Reactions Criticality Noted Date [...] daily. Active melatonin 10 mg Tablet Active vnoklxkr-gkqu-[id number] B-htsurvw-jfdp (One-A-Day Womens Formula) 18 mg iron-400 mcg-500 [...] 10:56 AM CDT Height 147.3 cm (4' 10) 10/27/2022 10:56 AM CDT Body Mass Index [...] 1-dose series) 2017 BREAST CANCER SCREENING 10/13/2022 10/14/19, 10/13/2021, 10/13/2021, Additional history exists INFLUENZA VACCINE (#1) 2024 COLORECTAL SCREENING 04/07/2025 04/07/2015 Colorectal Cancer Screening 04/07/2025 OSTEOPOROSIS SCREENING 09/08/2027 3, 09/07/2022, 09/07/2022, Additional history exists Insurance MEDICAID [place] MEDICARE [place]RO[place] MEDICAID [place] MEDICARE [place]RO[place] Care Teams Parenting Skills Instructor Relationship Specialty Start Date End Date Ricky Ballesteros MD [address] [place] [id number] PCP - General Internal Medicine 02/25/21
[2024-09-17 16:58] VITALS: PULSE 120; RESP 18; O2SAT 94
[2024-09-17 17:48] VITALS: PULSE 120; RESP 16
[2024-09-17] MEDS: MORPHINE SULFATE INJ (*CRX) 50 MG in SODIUM CHLORIDE 0.9% IV 95 ML 8 MG IV CONT (17:48)
[2024-09-17] MEDS: CENTRAL LINE FLUSH 10 ML IV PUSH ×2 (17:53→18:08)
[2024-09-17 20:00] VITALS: O2SAT 94
[2024-09-17] MEDS: LORazepam INJ (*CRX) 2 MG/ML VIAL IV PUSH (21:38)
[2024-09-17 21:42] VITALS: BP 82/45; PULSE 132; RESP 16; TEMP 37.2; O2SAT 94
[2024-09-18] MEDS: LORazepam INJ (*CRX) 2 MG/ML VIAL IV PUSH ×6 (00:53→21:13)
[2024-09-18 03:14] VITALS: BP 86/47; PULSE 124; RESP 24; TEMP 36.1; O2SAT 96
[2024-09-18] MEDS: CENTRAL LINE FLUSH 10 ML IV PUSH ×3 (05:27→21:13)
[2024-09-18 05:30] VITALS: BP 91/46; PULSE 127; RESP 16; TEMP 36.9; O2SAT 95
[2024-09-18 05:31] VITALS: PULSE 127
[2024-09-18] MEDS: MORPHINE SULFATE INJ (*CRX) 50 MG in SODIUM CHLORIDE 0.9% IV 95 ML 8 MG IV CONT ×2 (05:31→17:29)
[2024-09-18 09:17] VITALS: RESP 16; O2SAT 95
--- NOTE | 2024-09-18 12:42 | P.HP_ITS ---
H&P: HPI History of Present Illness Date/Time: 09/18/24 12:42 Chief Complaint: Uncontrolled dyspnea Narrative: 68-year-old female with rheumatoid arthritis was admitted to [facility] August 29 with pneumonia and sepsis. Was transferred to intensive care. Add respiratory failure that required intubation. Sepsis was complicated by acute kidney injury digital ischemia the fingers stroke, DVT, ileus, and e ncephalopathy. She developed bleeding of undetermined etiology requiring transfusions her family opted for comfort care. She was extubated about 5 days ago. She remained on comfort care on morphine 4 milligrams/hour and Ativan 2 mg every 4 hours IV. She has remained comfortable but unresponsive. Prior to initiation of morphine she had uncontrolled dyspnea and pain. At this point she is hypotensive with blood pressure 91/46 and too unstable to transfer. Review of Systems Review of Systems: ROS unobtainable: Yes unobtainable due to medical condition PMFSH Past Medical History Medical History Depression Anxiety Hypovitaminosis D Chronic ethmoidal sinusitis Left knee DJD Chronic right shoulder pain Left shoulder pain Anemia Immunosuppressed status Osteoarthritis Glaucoma Iron deficiency anemia Crohn's disease Gastroesophageal reflux disease Mixed hyperlipidemia Osteoporosis Psoriatic arthritis RLS (restless legs syndrome) Rheumatoid arthritis Surgical History Surgical History Status post cataract extraction of both eyes with insertion of intraocular lens S/P total knee arthroplasty LT TKA 05/18/23 Status post bilateral total hip replacement Status post ankle fusion With subsequent hardware removal and redo. Status post rotator cuff repair Bilateral. Status post cholecystectomy History of section Status post total right knee replacement History of temporal artery biopsy In October 2016. No pathologic abnormalities noted. Family History Family History Mother Family history of osteoporosis Cerebrovascular accident Family history of Alzheimer's disease Family history of coronary artery disease Acute myocardial infarction Family history of malignant melanoma Family history of malignant neoplasm of ovary Heart disease Father Family history of coronary artery disease Family history of heart disease in male family member before age 55 Family history of lung cancer, Onset Age: 48 Sibling Family history of lung cancer Family history of malignant melanoma Family history of malignant neoplasm of urinary bladder Heart disease Sibling Cancer Heart disease Other Family history of malignant neoplasm Hypertension Social History Social History (Updated 09/18/24 @ 12:44 by Bud Arroyo MD) Social History: The patient lives in [place] with her ex . They have been since 2006 but still live in the same home. They have 2 dogs that are mostly outside. 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 She is a lifelong nonsmoker and denies alcohol and drug abuse. She and her have 1 son. Code status: DNR Surrogate decision maker: Ex- and Debra (daughter in-law) Smoking status: Never smoker Additional smoking assessment comments: DENIES ANY FORM OF TOBACCO USE Alcohol intake: current Alcohol use details: Rare alcohol use once or twice a year Substance use: never Substance use type: does not use Do You Feel Safe in your Home?: Yes Lack of Transportation: No Lack of Food: Never True Current Housing: I Have Housing Concerned About Future Housing: No Difficulty Paying Gas/Electric Bills: No Difficulty Paying for Meds: No Currently Unemployed: No Education: Don't Know Difficulty w/ Childcare or Family Care: No Living arrangements: with family Occupation/Education: retired Gender identity (if verbalized by the patient): Female Sexual Orientation (if Verbalized by the Patient): Straight or Heterosexual Spiritual care concerns: No Agree to blood products: Yes Meds Home Medications and Allergies Home Medications ?Medication ?Instructions ?Recorded ?Confirmed ?Type ascorbic acid (vitamin C) 1,000 mg 1 gm PO DAILY 04/26/19 08/30/24 History tablet celecoxib 200 mg capsule 200 mg PO BID 04/26/19 08/30/24 History cholecalciferol (vitamin D3) 25 1,000 unit PO DAILY 04/26/19 08/30/24 History mcg (1,000 unit) capsule ferrous sulfate 325 mg (65 mg 325 mg PO DAILY 04/26/19 08/30/24 History iron) tablet (Feosol) folic acid 1 mg tablet 1 mg PO DAILY 04/26/19 08/30/24 History lactobacillus combination no.8 3 3,000 mmu cells PO DAILY 04/26/19 08/30/24 History billion cell capsule (Adult Probiotic) multivitamin 1 tablet PO DAILY 04/26/19 08/30/24 History magnesium 250 mg tablet 250 mg PO DAILY 03/04/20 08/30/24 History zinc 50 mg tablet 50 mg PO DAILY 03/04/20 08/30/24 History methotrexate sodium 2.5 mg tablet 2.5 mg PO .COMPLEX 01/21/21 08/30/24 History esomeprazole magnesium 40 mg 40 mg PO DAILY 02/03/22 08/30/24 History capsule,delayed release (Nexium) melatonin 10 mg capsule 10 mg PO DAILY PRN Insomnia 08/26/22 08/30/24 History tramadol 50 mg tablet 50 mg PO Q6H PRN Pain 01/27/23 08/30/24 History calcium 600 mg (as 1 tablet PO DAILY 05/04/23 08/30/24 History carbonate)-vitamin D3 10 mcg (400 unit) tablet (Calcium 600 + D(3)) hydroxychloroquine 200 mg tablet 200 mg PO DAILY 05/04/23 08/30/24 History sucralfate 1 gram tablet 1 g PO BID 05/04/23 08/30/24 History dextromethorphan-guaifenesin 30 See Rx Instructions PO Q12H PRN 06/21/23 08/30/24 Rx mg-600 mg tablet extended cough #30 tabs [id number] hr (Mucinex DM) fexofenadine 60 mg tablet (Glendy 60 mg PO Q12H 09/05/23 08/30/24 History Allergy) fluticasone propionate 50 1 spray intranasal PRN PRN Allergy 10/26/23 08/30/24 Rx mcg/actuation nasal Symptoms #16 grams spray,suspension prednisolone sodium phosphate 1 % 1 drp RIGHT EYE Q12H concern for 12/27/23 08/30/24 Rx eye drops glaucoma #10 mL escitalopram oxalate 20 mg tablet See Rx Instructions .Route 05/29/24 08/30/24 Rx .COMPLEX #90 tabs upadacitinib 15 mg tablet,extended 15 mg PO DAILY 05/29/24 08/30/24 History release 24 hr (Rinvoq) betamethasone valerate 0.1 % 1 applic topical BID #15 grams 07/19/24 08/30/24 Rx topical ointment alprazolam 0.5 mg tablet 0.5 mg PO BID PRN anxiety #60 tabs 07/30/24 08/30/24 Rx doxycycline hyclate 100 mg tablet 100 mg PO BID 06/19/25 06/19/25 History Allergies Allergy/AdvReac Type Severity Reaction Status Date / Time adalimumab Allergy Mild Itching Verified 08/07/24 11:55 codeine AdvReac Mild Itching Verified 08/07/24 11:55 Vital Signs Vital Signs - 24 hr 09/17/24 16:58 09/17/24 17:48 09/17/24 20:00 Temperature Pulse Rate 120 H 120 H Respiratory Rate 18 16 Blood Pressure Pulse Oximetry 94 94 Oxygen Delivery Nasal Cannula Nasal Cannula Oxygen Flow Rate 2 2 09/17/24 21:42 09/18/24 05:30 09/18/24 05:31 Temperature 98.9 F 98.5 F Pulse Rate 132 H 127 H 127 H Respiratory Rate 16 16 Blood Pressure 82/45 L 91/46 L Pulse Oximetry 94 95 Oxygen Delivery Oxygen Flow Rate 09/18/24 05:31 09/18/24 09:17 09/18/24 09:52 Temperature Pulse Rate 127 H Respiratory Rate 16 Blood Pressure Pulse Oximetry 95 Oxygen Delivery Nasal Cannula Nasal Cannula Oxygen Flow Rate 2 2 Exam Narrative: HEENT: EOMI, PERRL, sclerae nonicteric, pharyngeal mucosa pink and intact NECK: No JVD CHEST: Normal effort, coarse breath sounds with scattered coarse crackles throughout HEART: NL S1/S2, irregular tachycardia ABDOMEN: BS hypoactive, soft, nontender, no mass, no bruits EXTREMITIES: Gangrene of fingers bilateral hands NEUROLOGIC: CN intact and symmetric to inspection. MUSCULOSKELETAL: No gross deformity to visual inspection PSYCH: Unresponsive to verbal or tactile stimuli Assessment and Plan Assessment and plan (1) Hospice care: Code(s): Z51.5 - Encounter for palliative care Status: Acute Assessment and Plan: * Meet inpatient hospice criteria due to requiring continuous IV morphine and schedule IV Ativan for control of dyspnea and pain * 09/18/2024 discussed care and prognosis with at bedside, too unstable to transfer (2) Sepsis: Qualifiers: Sepsis acute organ dysfunction status: with acute organ dysfunction Sepsis type: sepsis due to unspecified organism Severe sepsis acute organ dysfunction type: encephalopathy Severe sepsis shock status: without septic shock Qualified Code(s): A41.9 - Sepsis, unspecified organism; R65.20 - Severe sepsis without septic shock; G93.41 - Metabolic encephalopathy Code(s): A41.9 - Sepsis, unspecified organism Status: Acute (3) Acute respiratory failure: Code(s): J96.00 - Acute respiratory failure, unspecified whether with hypoxia or hypercapnia Status: Acute (4) Pneumonia: Qualifiers: Laterality: bilateral Lung location: unspecified part of lung Pneumonia type: due to unspecified organism Qualified Code(s): J18.9 - Pneumonia, unspecified organism Code(s): J18.9 - Pneumonia, unspecified organism Status: Acute (5) Toxic metabolic encephalopathy: Code(s): G92.8 - Other toxic encephalopathy Status: Acute (6) CVA (cerebral vascular accident): Code(s): I63.9 - Cerebral infarction, unspecified Status: Acute (7) Rheumatoid arthritis: Code(s): M06.9 - Rheumatoid arthritis, unspecified Status: Acute (8) Immunosuppressed status: Code(s): D89.9 - Disorder involving the immune mechanism, unspecified Status: Acute (9) Anemia: Qualifiers: Anemia type: unspecified type Qualified Code(s): D64.9 - Anemia, unspecified Code(s): D64.9 - Anemia, unspecified Status: Acute (10) FRANK (acute kidney injury): Code(s): N17.9 - Acute kidney failure, unspecified Status: Acute (11) Hx of Crohn's disease: Code(s): Z87.19 - Personal history of other diseases of the digestive system Status: Acute (12) Ileus: Code(s): K56.7 - Ileus, unspecified Status: Acute (13) DVT (deep venous thrombosis): Code(s): I82.409 - Acute embolism and thrombosis of unspecified deep veins of unspecified lower extremity Status: Acute (14) Peripheral ischemia: Code(s): I99.8 - Other disorder of circulatory system Status: Acute
[2024-09-18 20:00] VITALS: O2SAT 90
[2024-09-18 20:15] VITALS: BP 88/47; PULSE 123; RESP 20; TEMP 36.8; O2SAT 90
[2024-09-19] MEDS: LORazepam INJ (*CRX) 2 MG/ML VIAL IV PUSH ×6 (01:08→21:39)
[2024-09-19] MEDS: MORPHINE SULFATE INJ (*CRX) 50 MG in SODIUM CHLORIDE 0.9% IV 95 ML 8 MG IV CONT ×2 (04:52→16:27)
[2024-09-19] MEDS: CENTRAL LINE FLUSH 10 ML IV PUSH ×3 (04:56→21:39)
[2024-09-19 05:54] VITALS: BP 82/49; PULSE 118; RESP 20; TEMP 36.6; O2SAT 90
[2024-09-19 08:33] VITALS: RESP 20; O2SAT 90
[2024-09-19 16:27] VITALS: RESP 10
--- NOTE | 2024-09-19 17:45 | P.PNIM_ITS ---
Progress Note: A&P Assessment and Plan (1) Hospice care: Code(s): Z51.5 - Encounter for palliative care Status: Acute Assessment and Plan: * Meet inpatient hospice criteria due to requiring continuous IV morphine and schedule IV Ativan for control of dyspnea and pain * 09/18/2024 discussed care and prognosis with ex- at bedside, too unstable to transfer * 09/19/2024 discussed care and prognosis with ex- and [id number] at bedside, respirations more shallow and slower, too unstable to transfer (2) Sepsis: Qualifiers: Sepsis acute organ dysfunction status: with acute organ dysfunction Sepsis type: sepsis due to unspecified organism Severe sepsis acute organ dysfunction type: encephalopathy Severe sepsis shock status: without septic shock Qualified Code(s): A41.9 - Sepsis, unspecified organism; R65.20 - Severe sepsis without septic shock; G93.41 - Metabolic encephalopathy Code(s): A41.9 - Sepsis, unspecified organism Status: Acute (3) Acute respiratory failure: Code(s): J96.00 - Acute respiratory failure, unspecified whether with hypoxia or hyper capnia Status: Acute (4) Pneumonia: Qualifiers: Laterality: bilateral Lung location: unspecified part of lung Pneumonia type: due to unspecified organism Qualified Code(s): J18.9 - Pneumonia, unspecified organism Code(s): J18.9 - Pneumonia, unspecified organism Status: Acute (5) Toxic metabolic encephalopathy: Code(s): G92.8 - Other toxic encephalopathy Status: Acute (6) CVA (cerebral vascular accident): Code(s): I63.9 - Cerebral infarction, unspecified Status: Acute (7) Rheumatoid arthritis: Code(s): M06.9 - Rheumatoid arthritis, unspecified Status: Acute (8) Immunosuppressed status: Code(s): D89.9 - Disorder involving the immune mechanism, unspecified Status: Acute (9) Anemia: Qualifiers: Anemia type: unspecified type Qualified Code(s): D64.9 - Anemia, unspecified Code(s): D64.9 - Anemia, unspecified Status: Acute (10) FRANK (acute kidney injury): Code(s): N17.9 - Acute kidney failure, unspecified Status: Acute (11) Hx of Crohn's disease: Code(s): Z87.19 - Personal history of other diseases of the digestive system Status: Acute (12) Ileus: Code(s): K56.7 - Ileus, unspecified Status: Acute (13) DVT (deep venous thrombosis): Code(s): I82.409 - Acute embolism and thrombosis of unspecified deep veins of unspecified lower extremity Status: Acute (14) Peripheral ischemia: Code(s): I99.8 - Other disorder of circulatory system Status: Acute Subjective Date/time seen: 09/19/24 17:45 Interval history: Remains comfortable unless repositioned. Review of Systems Review of Systems: ROS unobtainable: Yes unobtainable due to medical condition Exam Narrative: HEENT: EOMI, PERRL, sclerae nonicteric, pharyngeal mucosa pink and intact NECK: No JVD CHEST: Normal effort, coarse breath sounds with scattered coarse crackles throughout HEART: NL S1/S2, irregular tachycardia ABDOMEN: BS hypoactive, soft, nontender, no mass, no bruits EXTREMITIES: Gangrene of fingers bilateral hands NEUROLOGIC: CN intact and symmetric to inspection. MUSCULOSKELETAL: No gross deformity to visual inspection PSYCH: Unresponsive to verbal or tactile stimuli Objective Data Vital Signs Vital Signs: Vital Signs - 24 hr 09/18/24 20:00 09/18/24 20:15 09/19/24 05:54 Temperature 98.2 F 97.8 F Pulse Rate 123 H 118 H Respiratory Rate 20 20 Blood Pressure 88/47 L 82/49 L Pulse Oximetry 90 90 90 Oxygen Delivery Nasal Cannula Oxygen Flow Rate 2 09/19/24 08:33 09/19/24 16:27 09/19/24 16:27 Temperature Pulse Rate Respiratory Rate 20 10 L 10 L Blood Pressure Pulse Oximetry 90 Oxygen Delivery Nasal Cannula Oxygen Flow Rate 2 Intake/Output Intake/Output: Intake & Output 09/16/24 09/17/24 09/18/24 09/19/24 23:59 23:59 23:59 23:59 Intake Total 189.4 183.8 Output Total 75 125 0 Balance -75 64.4 183.8 Meds/Results Medications: Active Medications Generic Name Dose Route Start Last Admin Trade Name Freq PRN Reason Stop Dose Admin Artificial Tears 1 - 2 drop 09/17/24 17:15 Artificial Tears Ophth Soln 15 Ml Bottle EACH EYE Q12H PRN Dry Eye(s) Bisacodyl 10 mg 09/17/24 17:15 Bisacodyl 10 Mg Suppository RECTAL DAILY PRN Constipation Glycopyrrolate 0.1 mg 09/17/24 17:15 Glycopyrrolate Inj (*Sp) 0.2 Mg/Ml Vial IV PUSH Q4H PRN secretions Morphine Sulfate 50 mg/ Sodium 100 mls @ 8 mls/hr 09/17/24 17:15 09/19/24 16:27 Chloride IV CONT 4 mg/hr .[id number] RHYS 8 mls/hr Administration 4 MG/HR Lorazepam 2 mg 09/17/24 21:00 09/19/24 16:27 Lorazepam Inj (*Crx) 2 Mg/Ml Vial IV PUSH 2 mg Q4HR RHYS Administration Lorazepam 2 mg 09/17/24 17:18 Lorazepam Inj (*Crx) 2 Mg/Ml Vial IV PUSH Q2H PRN RESTLESSNESS Morphine Sulfate 4 mg 09/17/24 17:13 Morphine Sulfate (*Crx) 2 Mg/Ml Inj IV PUSH Q1H PRN Pain/DYSPNEA Prochlorperazine Edisylate 10 mg 09/17/24 17:20 Prochlorperazine Edisylate 10 Mg/2 Ml Vial IV PUSH Q6H PRN Nausea And Vomiting Sodium Chloride 10 ml 09/17/24 22:00 09/19/24 13:14 Central Line Flush IV PUSH 10 ml Q8HR RHYS Administration Sodium Chloride 20 ml 09/17/24 16:47 Central Line Flush IV PUSH PRN PRN after blood draws
[2024-09-19] MEDS: MORPHINE SULFATE (*CRX) 2 MG/ML INJ 4 MG IV PUSH (17:50)
[2024-09-19 20:00] VITALS: O2SAT 90
[2024-09-19 22:00] VITALS: BP 70/34; RESP 18; TEMP 36.8
[2024-09-20] MEDS: LORazepam INJ (*CRX) 2 MG/ML VIAL IV PUSH ×6 (01:26→21:04)
[2024-09-20] MEDS: MORPHINE SULFATE INJ (*CRX) 50 MG in SODIUM CHLORIDE 0.9% IV 95 ML 8 MG IV CONT ×2 (04:43→17:00)
[2024-09-20] MEDS: CENTRAL LINE FLUSH 10 ML IV PUSH ×3 (04:47→21:05)
[2024-09-20 09:05] VITALS: RESP 18; O2SAT 90
--- NOTE | 2024-09-20 15:34 | P.PNIM_ITS ---
Progress Note: A&P Assessment and Plan (1) Hospice care: Code(s): Z51.5 - Encounter for palliative care Status: Acute Assessment and Plan: * Meet inpatient hospice criteria due to requiring continuous IV morphine and schedule IV Ativan for control of dyspnea and pain * 09/18/2024 discussed care and prognosis with ex- at bedside, too unstable to transfer * 09/19/2024 discussed care and prognosis with ex- and [id number] at bedside, respirations more shallow and slower, too unstable to transfer * 09/20/2024 discussed status with ex- at bedside, continues to decline with shallow respirations, accessory muscle use, tachycardia, hypotension, hypoxia, gangrene of fingers, unresponsiveness, too unstable for transfer to [place] (2) Sepsis: Qualifiers: Sepsis acute organ dysfunction status: with acute organ dysfunction Sepsis type: sepsis due to unspecified organism Severe sepsis acute organ dysfunction type: encephalopathy Severe sepsis shock status: without septic shock Qualified Code(s): A41.9 - Sepsis, unspecified organism; R65.20 - Severe sepsis without septic shock; G93.41 - Metabolic encephalopathy Code(s): A41.9 - Sepsis, unspecified organism Status: Acute (3) Acute respiratory failure: Code(s): J96.00 - Acute respiratory failure, unspecified whether with hypoxia or hypercapnia Status: Acute (4) Pneumonia: Qualifiers: Laterality: bilateral Lung location: unspecified part of lung Pneumonia type: due to unspecified organism Qualified Code(s): J18.9 - Pneumonia, unspecified organism Code(s): J18.9 - Pneumonia, unspecified organism Status: Acute (5) Toxic metabolic encephalopathy: Code(s): G92.8 - Other toxic encephalopathy Status: Acute (6) CVA (cerebral vascular accident): Code(s): I63.9 - Cerebral infarction, unspecified Status: Acute (7) Rheumatoid arthritis: Code(s): M06.9 - Rheumatoid arthritis, unspecified Status: Acute (8) Immunosuppressed status: Code(s): D89.9 - Disorder involving the immune mechanism, unspecified Status: Acute (9) Anemia: Qualifiers: Anemia type: unspecified type Qualified Code(s): D64.9 - Anemia, unspecified Code(s): D64.9 - Anemia, unspecified Status: Acute (10) FRANK (acute kidney injury): Code(s): N17.9 - Acute kidney failure, unspecified Status: Acute (11) Hx of Crohn's disease: Code(s): Z87.19 - Personal history of other diseases of the digestive system Status: Acute (12) Ileus: Code(s): K56.7 - Ileus, unspecified Status: Acute (13) DVT (deep venous thrombosis): Code(s): I82.409 - Acute embolism and thrombosis of unspecified deep veins of unspecified lower extremity Status: Acute (14) Peripheral ischemia: Code(s): I99.8 - Other disorder of circulatory system Status: Acute Subjective Date/time seen: 09/20/24 15:34 Interval history: Remains comfortable as long as premedicated prior to any care. Review of Systems Review of Systems: ROS unobtainable: Yes unobtainable due to medical condition Exam Narrative: HEENT: Sclerae nonicteric, pharyngeal mucosa pink and intact NECK: No JVD CHEST: Utilizing accesory muscles but not tachypneic, coarse breath sounds with scattered coarse crackles throughout HEART: NL S1/S2, irregular tachycardia ABDOMEN: BS hypoactive, soft, nontender, no mass, no bruits EXTREMITIES: Gangrene of fingers bilateral hands NEUROLOGIC: CN intact and symmetric to inspection. MUSCULOSKELETAL: No gross deformity to visual inspection PSYCH: Unresponsive to verbal or tactile stimuli Objective Data Vital Signs Vital Signs: Vital Signs - 24 hr 09/19/24 16:27 09/19/24 16:27 09/19/24 20:00 Temperature Respiratory Rate 10 L 10 L Blood Pressure Pulse Oximetry 90 Oxygen Delivery Nasal Cannula Oxygen Flow Rate 2 09/19/24 22:00 09/20/24 09:05 Temperature 98.3 F Respiratory Rate 18 18 Blood Pressure 70/34 L Pulse Oximetry 90 Oxygen Delivery Nasal Cannula Oxygen Flow Rate 2 Intake/Output Intake/Output: Intake & Output 09/17/24 09/18/24 09/19/24 09/20/24 23:59 23:59 23:59 23:59 Intake Total 189.4 183.8 98.1 Output Total 75 125 150 0 Balance -75 64.4 33.8 98.1 Meds/Results Medications: Active Medications Generic Name Dose Route Start Last Admin Trade Name Freq PRN Reason Stop Dose Admin Artificial Tears 1 - 2 drop 09/17/24 17:15 Artificial Tears Ophth Soln 15 Ml Bottle EACH EYE Q12H PRN Dry Eye(s) Bisacodyl 10 mg 09/17/24 17:15 Bisacodyl 10 Mg Suppository RECTAL DAILY PRN Constipation Glycopyrrolate 0.1 mg 09/17/24 17:15 Glycopyrrolate Inj (*Sp) 0.2 Mg/Ml Vial IV PUSH Q4H PRN secretions Morphine Sulfate 50 mg/ Sodium 100 mls @ 8 mls/hr 09/17/24 17:15 09/20/24 04:43 Chloride IV CONT 4 mg/hr .[id number] RHYS 8 mls/hr Administration 4 MG/HR Lorazepam 2 mg 09/17/24 21:00 09/20/24 12:56 Lorazepam Inj (*Crx) 2 Mg/Ml Vial IV PUSH 2 mg Q4HR RHYS Administration Lorazepam 2 mg 09/17/24 17:18 Lorazepam Inj (*Crx) 2 Mg/Ml Vial IV PUSH Q2H PRN RESTLESSNESS Morphine Sulfate 4 mg 09/17/24 17:13 09/19/24 17:50 Morphine Sulfate (*Crx) 2 Mg/Ml Inj IV PUSH 4 mg Q1H PRN Administration Pain/DYSPNEA Prochlorperazine Edisylate 10 mg 09/17/24 17:20 Prochlorperazine Edisylate 10 Mg/2 Ml Vial IV PUSH Q6H PRN Nausea And Vomiting Sodium Chloride 10 ml 09/17/24 22:00 09/20/24 13:00 Central Line Flush IV PUSH 10 ml Q8HR RHYS Administration Sodium Chloride 20 ml 09/17/24 16:47 Central Line Flush IV PUSH PRN PRN after blood draws
[2024-09-20 20:02] VITALS: BP 70/34; PULSE 125; RESP 10; TEMP 36.4; O2SAT 93
[2024-09-21] MEDS: LORazepam INJ (*CRX) 2 MG/ML VIAL IV PUSH ×4 (00:41→10:08)
[2024-09-21] MEDS: CENTRAL LINE FLUSH 10 ML IV PUSH (05:03)
[2024-09-21] MEDS: MORPHINE SULFATE INJ (*CRX) 50 MG in SODIUM CHLORIDE 0.9% IV 95 ML 8 MG IV CONT (05:51)
[2024-09-21] MEDS: GLYCOPYRROLATE INJ (*SP) 0.2 MG/ML VIAL 0.1 MG IV PUSH (08:04)
[2024-09-21 08:10] VITALS: BP 52/26; PULSE 110; RESP 14; O2SAT 89
--- NOTE | 2024-09-21 11:03 | P.PN_ITS ---
Progress Note: A&P Assessment and Plan (1) Hospice care: Code(s): Z51.5 - Encounter for palliative care Status: Acute Assessment and Plan: Pt continues to be GIP appropriate r/t need for IV comfort meds. Pt has received 1 PRN dose of Ativan and Robinul r/t increased secretions and HR. Pt appearing comfortable during my assessment at current doses of medication. No med changes needed. Will continue to f/u daily and reassess for comfort. Time Spent With Patient Time with patient: 25 - 35 minutes Subjective Date/time seen: 09/21/24 11:03 Interval history: Pt is a yo old female admitted to [facility] hospice with dx of respiratory failure. Pt is bedbound with PPS of 10%. NPO x8 days. Unresponsive to all stimuli. No meaningful movement. No acute distress. Family at bedside and grieving appropriately. Review of Systems Review of Systems: ROS unobtainable: Yes unobtainable due to medical condition and unobtainable due to mental status Constitutional: Constitutional: Reports as per HPI Cardiovascular: Cardiovascular: Reports as per HPI Respiratory: Respiratory: Reports as per HPI Gastrointestinal: Gastrointestinal: Reports as per HPI Exam Const: General: comfortable and no acute distress Limitations: altered mental status Neck: Neck: normal visual inspection Chest: Chest palpation & inspection: normal inspection of the chest Resp: Effort & Inspection: normal respiratory effort Auscultation: clear to auscultation bilaterally (Diminished) Cardio: Rate: regular rate Rhythm: regular rhythm Heart sounds: S1 normal heart sound present and S2 normal heart sound present Peripheral pulses: other (Pedal pulses absent. L radial absent. R radial faint, 1+) GI: Inspection: normal to inspection GI Palp: Yes Soft to palpation Auscultation: normal bowel sounds Other: rectal tube patent. Decreased output. Urinary Catheter: Urinary Catheter: patent and draining (UOP significantly decreased. <200 ml/24 hrs ) Skin: General skin exam: pallor Extrem: Other: Mottling to all finger tips Objective Data Vital Signs Vital Signs: Vital Signs - 24 hr 09/20/24 20:00 09/20/24 20:02 09/20/24 23:24 Temperature 36.4 C Pulse Rate 125 H Respiratory Rate 10 L Blood Pressure 70/34 L Pulse Oximetry 93 Oxygen Delivery Nasal Cannula Nasal Cannula Oxygen Flow Rate 2 2 09/21/24 08:10 09/21/24 09:16 Temperature Pulse Rate 110 H Respiratory Rate 14 Blood Pressure 52/26 L Pulse Oximetry 89 L Oxygen Delivery Nasal Cannula Oxygen Flow Rate 2 Intake/Output Intake/Output: Intake & Output 09/18/24 09/19/24 09/20/24 09/21/24 23:59 23:59 23:59 23:59 Intake Total 189.4 183.8 196.4 97 Output Total 125 150 0 10 Balance 64.4 33.8 196.4 87 Meds/Results Medications: Active Medications Generic Name Dose Route Start Last Admin Trade Name Freq PRN Reason Stop Dose Admin Artificial Tears 1 - 2 drop 09/17/24 17:15 Artificial Tears Ophth Soln 15 Ml Bottle EACH EYE Q12H PRN Dry Eye(s) Bisacodyl 10 mg 09/17/24 17:15 Bisacodyl 10 Mg Suppository RECTAL DAILY PRN Constipation Glycopyrrolate 0.1 mg 09/17/24 17:15 09/21/24 08:04 Glycopyrrolate Inj (*Sp) 0.2 Mg/Ml Vial IV PUSH 0.1 mg Q4H PRN Administration secretions Morphine Sulfate 50 mg/ Sodium 100 mls @ 8 mls/hr 09/17/24 17:15 09/21/24 05:51 Chloride IV CONT 4 mg/hr .[id number] RHYS 8 mls/hr Administration 4 MG/HR Lorazepam 2 mg 09/17/24 21:00 09/21/24 08:04 Lorazepam Inj (*Crx) 2 Mg/Ml Vial IV PUSH 2 mg Q4HR RHYS Administration Lorazepam 2 mg 09/17/24 17:18 09/21/24 10:08 Lorazepam Inj (*Crx) 2 Mg/Ml Vial IV PUSH 2 mg Q2H PRN Administration RESTLESSNESS Morphine Sulfate 4 mg 09/17/24 17:13 09/19/24 17:50 Morphine Sulfate (*Crx) 2 Mg/Ml Inj IV PUSH 4 mg Q1H PRN Administration Pain/DYSPNEA Prochlorperazine Edisylate 10 mg 09/17/24 17:20 Prochlorperazine Edisylate 10 Mg/2 Ml Vial IV PUSH Q6H PRN Nausea And Vomiting Sodium Chloride 10 ml 09/17/24 22:00 09/21/24 05:03 Central Line Flush IV PUSH 10 ml Q8HR RHYS Administration Sodium Chloride 20 ml 09/17/24 16:47 Central Line Flush IV PUSH PRN PRN after blood draws
--- NOTE | 2024-10-11 17:03 | P.DN_ITS ---
Discharge Summary Date and Time Date of : 09/21/24 Time of : 11:15 Provider Pronounced By: 2 RNs Name of First RN That Pronounced: Mariel Trejo Name of Second RN That Pronounced: Akhil Copeland Probable Cause of Probable Cause of : Sepsis with acute hypoxic respiratory failure due to pneumonia Summary Hospital Course: Admitted to inpatient hospice unit for symptom management. Medications titrated to comfort. Mrs. Garcia peacefully. Additional Data Confirmation of as documented by pronouncing clinician: Pupillary Reflex, Palpable Pulses, Response to Stimuli, Heart Tones and Breath Sounds Name of Provider Notified: Dr. 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
== END 2024-09-21 14:00 | disposition expired | DRG 951 ==
PROVIDERS: Admitting Provider Internal Medicine; Visit Provider Internal Medicine
DX: Z51.5 Encounter for palliative care (principal); A41.9 Sepsis, unspecified organism; R65.20 Severe sepsis without septic shock; G93.41 Metabolic encephalopathy; J18.9 Pneumonia, unspecified organism; J96.00 Acute respiratory failure, unspecified whether with hypoxia or hypercapnia; I63.9 Cerebral infarction, unspecified; D84.81 Immunodeficiency due to conditions classified elsewhere; I82.623 Acute embolism and thrombosis of deep veins of upper extremity, bilateral; N17.9 Acute kidney failure, unspecified; M06.9 Rheumatoid arthritis, unspecified; I99.8 Other disorder of circulatory system
CPT/HCPCS: A9270; J1596; J2060; J2270